=== PATIENT | male | born 1955 | race Caucasian/White ===

== ENCOUNTER 2023-08-14 09:27 | Outpatient (OUT) | payer MEDICARE, BC, SELFPAY ==
--- NOTE | 2023-08-14 09:45 | ECG_ITS ---
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
--- NOTE | 2023-08-14 10:36 | PM.PRESUREVA ---
History of Present Illness History of Present Illness Chief complaint: BPH with Obstruction, bladder stones Narrative: Patient reports for preadmission testing. The patient states he had an episode of hematuria and had a CT scan done with his PCP which demonstrated a bladder stone. The patient does admit at times he has difficulty with his urine stream. He denies nausea, vomiting, fever, abdominaal pain, or any other complaints. Review of Systems ROS Narrative REVIEW OF SYSTEMS: Negative except as stated in HPI, ten or more systems reviewed. Constitutional: No fever , chills, weakness ENT: No sore throat or epistaxis Cardiovascular: No edema, chest pain, palpitations, or activity intolerance Respiratory: No shortness of breath, cough, or wheezing Musculoskeletal: No joint pain or swelling Gastrointestinal: No abdominal pain, constipation, diarrhea, or vomiting Genitourinary: No dysuria Neurological: No numbness, tingling, weakness, or headache Psychiatric: No mood changes [facility] History (Updated 08/14/23 @ 10:19 by Sofi Kelly NP) COVID-19 ?U07.1 - COVID-19 (ICD-10) Postoperative nausea and vomiting ?R11.2 - Nausea with vomiting, unspecified (ICD-10) ?Z98.890 - Other specified postprocedural states (ICD-10) Diabetes ?E11.9 - Type 2 diabetes mellitus without complications (ICD-10) Hypertension ?I10 - Essential (primary) hypertension (ICD-10) Elevated PSA ?R97.20 - Elevated prostate specific antigen [PSA] (ICD-10) Hematuria ?R31.9 - Hematuria, unspecified (ICD-10) Bladder stone ?N21.0 - Calculus in bladder (ICD-10) BPH with obstruction/lower urinary tract symptoms ?N40.1 - Benign prostatic hyperplasia with lower urinary tract symptoms (ICD-10) ?N13.8 - Other obstructive and reflux uropathy (ICD-10) Surgical History (Updated 08/14/23 @ 10:14 by Sofi Kelly NP) H/O eye surgery ?Z98.890 - Other specified postprocedural states (ICD-10) History of colonoscopy ?Z98.890 - Other specified postprocedural states (ICD-10) H/O cystoscopy ?Z98.890 - Other specified postprocedural states (ICD-10) H/O knee surgery ?Z98.890 - Other specified postprocedural states (ICD-10) Family History (Updated 08/14/23 @ 10:14 by Sofi Kelly NP) Other Family history of diabetes mellitus Family history of hypertension Heart disease Social History (Updated 08/14/23 @ 10:10 by Sofi Kelly NP) Within the past year, how often did you have a drink containing alcohol: never Score interpretation: A score less than 4 is consistent with normal alcohol consumption. Smoking status: Never smoker Non-prescribed substance use: denies use Highest level of school completed/degree received: high school graduate Meds Home Medications and Allergies Home Medications Medication Instructions Recorded Confirmed Type aspirin 81 mg tablet,delayed 81 mg PO DAILY 08/14/23 08/14/23 History release (Adult Aspirin Regimen) insulin glargine 100 unit/mL (3 10 unit subcut QPM 08/14/23 08/14/23 History mL) subcutaneous pen (Basaglar KwikPen U-100 Insulin) lisinopril 10 mg tablet 10 mg PO DAILY 08/14/23 08/14/23 History metformin 500 mg tablet,extended 500 mg PO DAILY 08/14/23 08/14/23 History release 24 hr repaglinide 1 mg tablet 1 mg PO TID 08/14/23 08/14/23 History tamsulosin 0.4 mg capsule (Flomax) 0.4 mg PO DAILY 08/14/23 08/14/23 History Allergies Allergy/AdvReac Type Severity Reaction Status Date / Time Rfpilth-[id number]-IjM Reductase Allergy Rash Verified 08/14/23 10:02 Inhibitor Sulfa (Sulfonamide Allergy Rash Verified 08/14/23 10:02 Antibiotics) Exam Narrative Exam Narrative: Constitutional: Awake, alert, comfortable, well-appearing, nontoxic, interactive, vital signs as charted Head: Normocephalic, atraumatic Neck: Supple, normal appearance, normal range of motion, no meningeal signs, no lymphadenopathy Respiratory: No respiratory distress, breath sounds clear Cardiovascular: Regular rate and rhythm, strong and regular heart tones Abdomen: Nontender, normal bowel sounds, soft, no CVA tenderness Musculoskeletal: Normal gait, no swelling or edema Skin: No rashes or induration, no lesions, only visible skin inspected Neuro: No neurological deficits, normal sensation Psychiatric: Oriented ?3, Flat affect, poor insight Assessment and Plan Assessment and Plan (1) Hematuria: (2) Bladder stone: (3) BPH with obstruction/lower urinary tract symptoms: Plan Cystoscopy, transurethral resection of the prostate, litholapaxy scheduled with Dr. Miner 09/11/2023.
[2023-08-14 10:41] LABS: Basophils Absolute Auto 0.1 10^3/uL (0.0-0.1); Basophils Percent Auto 0.8 % (0.2-2.0); Eosinophils Absolute Auto 0.5 10^3/uL (0.0-0.7); Eosinophils Percent Auto 6.7 % (0.9-7.0); Hematocrit 38.1 % (42.0-54.0); Hemoglobin 12.4 g/dL (14.0-18.0); Immature Granulocytes Abs Auto 0.02 10^3/uL (0.00-0.03); Immature Granulocytes Pct Auto 0.3 % (0.0-0.5); Lymphocytes Absolute Auto 2.8 10^3/uL (1.2-3.8); Lymphocytes Percent Auto 39.5 % (20.5-60.0); Mean Corpuscular HGB Conc 32.5 g/dL (29.9-35.2); Mean Corpuscular Hemoglobin 29.9 pg (25.9-34.0); Mean Corpuscular Volume 91.8 fL (80.0-94.0); Mean Platelet Volume 10.6 fL (9.5-13.5); Monocytes Absolute Auto 0.6 10^3/uL (0.3-0.8); Monocytes Percent Auto 8.8 % (1.7-12.0); Neutrophils Absolute Auto 3.2 10^3/uL (1.4-6.5); Neutrophils Percent Auto 43.9 % (43.0-75.0); Platelet Count 153 10^3/uL (150-450); Red Blood Count 4.15 10^6/uL (4.70-6.10); Red Cell Distribution Width 12.3 % (11.0-15.0); White Blood Count 7.2 10^3/uL (4.0-11.0)
[2023-08-14 10:55] LABS: Anion Gap 14.6; BUN Creatinine Ratio 16.7; Calcium 9.2 mg/dL (8.5-10.1); Carbon Dioxide 27.5 mmol/L (21.0-32.0); Chloride 103 mmol/L (98-107); Estimated GFR (African America 52 (>=60); Estimated GFR (Non-African Ame 43 (>=60); Glucose 89 mg/dL (74-106); Potassium 5.1 mmol/L (3.5-5.1); Sodium 140 mmol/L (136-145)
[2023-08-14 11:00] LABS: INR 1.03; Partial Thromboplastin Time 26.9 sec (22.3-36.2); Prothrombin Time 10.9 sec (9.0-11.6)
== END 2023-08-14 09:28 | disposition home or self-care (01) ==
LOC: PST 09:28
PROVIDERS: Visit Provider Urology
DX: Z01.810 Encounter for preprocedural cardiovascular examination (principal); Z01.812 Encounter for preprocedural laboratory examination; Z01.818 Encounter for other preprocedural examination; N40.1 Benign prostatic hyperplasia with lower urinary tract symptoms; R31.9 Hematuria, unspecified
CPT/HCPCS: 80048; 85025; 85610; 85730; 93005; G0463

== ENCOUNTER 2023-09-17 11:50 | Outpatient (OUT) | payer MEDICARE, BC, SELFPAY ==
--- OUTSIDE RECORDS SUMMARY | 2023-09-17 12:09 | XMS_ITS | CCD ---
Author Organization [facility] Care Team Providers Care Liquor Tester Name Role Phone Nekl, Delia Unavailable Unavailable Nekl, Delia E Unavailable Unavailable Lamping, Alice A Unavailable Unavailable Nekl, Delia E Unavailable Unavailable Unavailable Unavailable Unavailable NON STAFF Primary Care Provider UnavailCRISTOPHER [place] Emergency Provider Unavailable Unavailable NEKL, DELIA LAKHWINDER Referring Unavailable NEKL, DELIA LAKHWINDER Primary Care Unavailable NEKL, DELIA LAKHWINDER Attending Unavailable NEKL, DELIA LAKHWINDER Referring Unavailable NEKL, DELIA LAKHWINDER Primary Care Unavailable NEKL, DELIA LAKHWINDER Attending Unavailable NEKL, DELIA LAKHWINDER Primary Care Unavailable NEKL, DELIA LAKHWINDER Attending Unavailable NEKL, DELIA LAKHWINDER Referring Unavailable NEKL, DELIA LAKHWINDER Referring Unavailable NEKL, DELIA LAKHWINDER Primary Care Unavailable NEKL, DELIA LAKHWINDER Attending Unavailable VANGIE DORADO MD Attending Unavailable CESARIO YOON MD Admitting Unavailable CESARIO YOON MD Attending Unavailable HIREN KIM CRNA Consulting Unavailable NEKL, DELIA Primary Care Unavailable GRETEL MAJANO MD Attending Unavailable NEKL, DELIA Primary Care Unavailable GRETEL MAJANO MD Admitting Unavailable Mast, Светлана Unavailable Mast, DO Светлана Primary Care Provider Mast, DO Светлана Attending Provider Mast, Светлана Attending Unavailable Mast, Светлана Admitting Unavailable Mast, Светлана Primary Care Unavailable Mast, Светлана Attending Unavailable Mast, Светлана Admitting Unavailable Mast, Светлана Primary Care Unavailable MAST, СВЕТЛАНА E Primary Care Physician [phone] MINER, Devendra R Attending Unavailable MINER, Devendra R Attending Unavailable MINER, Devendra R Attending Unavailable MINER, Devendra R Attending Unavailable MINER, Devendra R Attending Unavailable MASTСВЕТЛАНА Referring Unavailable MINER, Devendra R Attending Unavailable MINER, Devendra R Attending Unavailable MINER, Devendra R Attending Unavailable MINER, Devendra R Attending Unavailable Allergies Allergy Classification Reported Allergen(s) Allergy Type Date of Onset Reaction(s) Facility Cholesterol Absorption Inhibitors (1 source) ezetimibe; Translations: [Zetia TABS] Drug Allergy [facility] Work Phone: colesevelam (1 source) colesevelam; Translations: [Welchol] Drug Allergy [facility] Work Phone: Linagliptin (1 source) Linagliptin; Translations: [Tradjenta TABS] Drug Allergy [facility] Work Phone: Sulfonamides (antibiotic) (1 source) Sulfonamides (Antibiotic); Translations: [Sulfa Drugs] Drug Allergy [facility] Work Phone: Thiazolidinediones (glitazones) (1 source) pioglitazone; Translations: [Pioglitazone HCl TABS] Drug Allergy [facility] Work Phone: (20 sources) colesevelam; Translations: [Welchol] Drug Allergy [facility] Repository (20 sources) ezetimibe; Translations: [Zetia TABS] Drug Allergy [facility] Work Phone: (20 sources) Linagliptin; Translations: [Tradjenta TABS] Drug Allergy [facility] Work Phone: (20 sources) pioglitazone; Translations: [Pioglitazone HCl TABS] Drug Allergy [facility] Work Phone: (20 sources) Sulfonamides (Antibiotic); Translations: [Sulfa Drugs] drug allergy [facility] Work Phone: (4 sources) Sulfonamides (Antibiotic); Translations: [Sulfa (Sulfonamide Antibiotics)] Allergy to substance 12-08-19 22 Unknown Reaction [facility] (4 sources) Hfsvbwa-RZY-VaY Reductase Inhibitor; Translations: [Bvykvgy-OQE-KrJ Reductase Inhibitor] Allergy to substance 12-08-19 22 Unknown Reaction [facility] (1 source) ezetimibe Drug Allergy [facility] Repository (1 source) Linagliptin Drug Allergy [facility] Rep[facility] (1 source) pioglitazone Drug Allergy [facility] Rep[facility] (1 source) Sulfonamides (Antibiotic) Drug allergy (disorder) [facility] Repository (8 sources) HMG-CoA reductase inhibitor; Translations: [statins] Drug allergy rash, Eruption of skin (disorder) [facility] (6 sources) Sulfacetamide Sod-Sulfur Drug allergy rash [facility] [employer] Other (2 sources) SITagliptin Drug Allergy shortness of breath [facility] [employer] Other (3 sources) Sulfur; Translations: [sulfur topical] Drug Allergy Eruption of skin (disorder) [facility] (1 source) Hmg-Coa Reductase Inhibitors (Statins); Translations: [statins] Propensity to adverse reactions (disorder) [facility] Repository Medications Current Medications Medication Drug Class(es) Dates Sig (Normalized) Sig (Original) aspirin 81 mg delayed release oral tablet (2 sources) Platelet Aggregation Inhibitor, Nonsteroidal Anti-inflammatory Drug Start: 06-04-2023 take 1 mg by mouth once daily aspirin 81 mg Oral EC Tab mg tab(s), Oral, Daily, Refills(s) 0 Start Date: 06/04/23 Status: Ordered Basaglar KwikPen (2 sources) Start: 06-04-2023 Basaglar KwikPen SubCutaneous, Daily, Refills(s) 0 Start Date: 06/04/23 Status: Ordered Dexcom G7 Sensor - (1 source) Dexcom G7 Sensor - as directed 1 box Active FreeStyle Bogdan 3 Sensor - (5 sources) Start: 02-27-2023 FreeStyle Bogdan 3 Sensor - as directed 1 box Jan, Active lisinopril 10 mg oral tablet (20 sources) Angiotensin Converting Enzyme Inhibitor Start: 06-04-2023 take 1 mg by mouth once daily lisinopril 10 mg Tab mg tab(s), Oral, Daily, Refills(s) 0 Start Date: 06/04/23 Status: Ordered Start: 05-11-2020 take 1 tablet by savi th once daily Lisinopril 10 MG Oral Tablet Take 1 tablet daily Quantity: 90 Refills: 3 Ordered: 18-Jan-2022 Delia Ulloa MD Start : 11-May-2020 Active Start: 07-20-2018 take 1 tablet by savi th once daily Lisinopril 5 MG Oral Tablet Take 1 tablet daily Quantity: 90 Refills: 3 Delia Ulloa MD Start : 20-Jul-2018 Active metFORMIN hydrochloride 500 mg oral tablet (20 sources) Biguanide Start: 06-04-2023 take 1 mg by mouth once daily metformin 500 mg ER Tab mg tab(s), Oral, Daily, Refills(s) 0 Start Date: 06/04/23 Status: Ordered Start: 10-26-2013 take 2 tablets by mo [facility] twice daily metFORMIN HCl ER 500 MG Oral Tablet Extended Release 24 Hour take 2 tablets by mouth twice daily Quantity: 360 Refills: 3 Delia Ulloa MD Start : 26-Oct-2013 Active Start: 10-26-2013 take 1 tablet by savi three times daily metFORMIN HCl ER 500 MG Oral Tablet Extended Release 24 Hour TAKE 1 TABLET 3 times daily Quantity: 270 Refills: 3 Ordered: 09-Feb-2022 Delia Ulloa MD Start : 26-Oct-2013 Active repaglinide 1 mg oral tablet (20 sources) Glinide Start: 06-04-2023 repaglinide 1 mg Tab mg tab(s), Oral, TIDAC, Refills(s) 0 Start Date: 06/04/23 Status: Ordered Start: 08-26-2014 take 1 tablet by savi th three times daily Repaglinide 2 MG Oral Tablet TAKE 1 TABLET BY MOUTH THREE TIMES DAILY Quantity: 270 Refills: 3 Ordered: 18-Jan-2022 Delia Ulloa MD Start : 26-Aug-2014 Active tamsulosin hydrochloride 0.4 mg oral capsule (3 sources) alpha-Adrenergic Maricel Start: 06-04-2023 End: 05-29-2024 take 1 capsule by mouth once daily Flomax 0.4 mg Cap 0.4 mg = 1 cap(s), Oral, Daily, X 30 day(s), # 30 cap(s), Refills(s) 11, Pharmacy: [facility], 178, cm, 06/04/23 13:57:00 EST, Height/Length Dosing, 87, kg, 06/04/23 13:57:00 EST, Weight Dosing Start Date: 06/04/23 Stop Date: 05/29/24 Status: Ordered Completed/Discontinued Medications Medication Drug Class(es) Dates Sig (Normalized) Sig (Original) azithromycin 250 mg oral tablet (2 sources) Macrolide Antimicrobial Start: 06-20-2021 Azithromycin 250 MG Oral Tablet TAKE 2 TABLETS ON DAY 1 THEN TAKE 1 TABLET A DAY FOR 4 DAYS. Quantity: 1 Refills: 0 Ordered: 20-Jun-2021 Delia Ulloa MD Start : 20-Jun-2021 Active cefuroxime 500 mg oral tablet (3 sources) Cephalosporin Antibacterial Start: 06-13-2021 take 1 tablet by mouth twice daily Cefuroxime Axetil 500 MG Oral Tablet Take 1 tablet twice daily Quantity: 14 Refills: 0 Ordered: 13-Jun-2021 Delia Ulloa MD Start : 13-Jun-2021 Active ciprofloxacin 500 mg oral tablet (2 sources) Quinolone Antimicrobial Start: 06-04-2023 Cipro 500 mg Tab 500 mg = 1 tab(s), Oral, As Directed, Patient to take 1 tab the day before procedure and the 2nd tab the day of procedure once completed, # 2 tab(s), Refills(s) 0, Pharmacy: [facility], 178, cm, 06/04/23 13:57:00 EST, Height/Length Dosing, 87, kg, 06/04/23 13:57:00 EST, Weight Dosing Start Date: 06/04/23 Status: Ordered codeine phosphate 2 mg/ml / guaiFENesin 20 mg/ml oral solution (2 sources) Opioid Agonist Start: 06-20-2021 take 5-10 mL by mouth every four to six hours as needed for cough guaiFENesin AC 100-10 MG/5ML Oral Syrup TAKE 5 - 10 ML EVERY 4 TO 6 HOURS NEEDED FOR COUGH. Quantity: 120 Refills: 0 Ordered: 20-Jun-2021 Delia Ulloa MD Start : 20-Jun-2021 Active 3 ml insulin glargine 100 unt/ml pen injector (20 sources) Insulin Analog Start: 10-20-2018 Basaglar KwikPen 100 UNIT/ML Subcutaneous Solution Pen-injector INJECT 15 UNIT Daily Quantity: 1 Refills: 3 Ordered: 18-Jan-2022 Delia Ulloa MD Start : 20-Oct-2018 Active Start: 10-20-2018 inject 12 [IU] by shaw bcutaneous injection once daily, then inject 100 [IU] by subcutaneous injection Basaglar KwikPen 100 UNIT/ML Subcutaneous Solution Pen-injector INJECT 12 UNIT Daily Quantity: 1 Refills: 5 Delia Ulloa MD Start : 20-Oct-2018 Active 5 x 3 ML Pen inject 10 [IU] by shaw bcutaneous injection once daily Basaglar KwikPen 100 UNIT/ML 10 Units Subcutaneous once a day Active Paxlovid (300/100) 20 x 150 MG & 10 x 100MG Oral Tablet Therapy Pack (1 source) Start: 03-12-2022 Paxlovid (300/ 100) 20 x 150 MG & 10 x 100MG Oral Tablet Therapy Pack dose is nirmatrelvir 300mg twice daily for 5 days and ritonavir 100mg twice daily for 5 days(pt. has normal renal function) Quantity: 1 Refills: 0 Ordered: 12-Mar-2022 Delia Ulloa MD Start : 12-Mar-2022 Active paxlovid (300/100) 20 x 150 mg & 10 x 100mg tablet therapy pack (1 source) Start: 03-25-2023 take 3 tablets by mouth every twelve hours Paxlovid (300/100) 20 x 150 MG & 10 x 100MG 3 tablets Orally Twice a day for 5 days Feb, Not-Taking/PRN SITagliptin 100 mg oral tablet (4 sources) Dipeptidyl Peptidase 4 Inhibitor Start: 03-25-2023 take 1 tablet by mouth every twenty-four hours Januvia 100 MG 1 tablet Orally Once a day for 30 days due to shortness of breath Feb, Not-Taking/PRN {20 (nirmatrelvir 150 MG Oral Tablet) / 10 (ritonavir 100 MG Oral Tablet) } Pack [Paxlovid 5-Day] (3 sources) Start: 03-25-2023 take 3 tablets by mouth every twelve hours Paxlovid (300/100) 20 x 150 MG & 10 x 100MG 3 tablets Orally Twice a day for 5 days Feb, Not-Taking Start: 03-25-2023 take 3 tablets by mo uth every twelve hours Paxlovid (300/100) 20 x 150 MG & 10 x 100MG 3 tablets Orally Twice a day for 5 days Feb, Active Problems Active Problems Problem Classification Problem Date Documented Da te Episodic/Chronic Allergic reactions (2 sources) Allergy status to sulfonamides status; Translations: [Allergy status to other drugs, medicaments and biological substances status] Onset: 10-10-2022 Episodic Calculus of urinary tract (11 sources) Urinary bladder stone; Translations: [Calculus in bladder] Onset: 06-04-2023 Episodic Coronary atherosclerosis and other heart disease (16 sources) Coronary atherosclerosis; Translations: [Coronary atherosclerosis of unspecified type of vessel, [place] or graft] Onset: 02-11-2022 Chronic Diabetes mellitus without complication (20 sources) Type 2 diabetes mellitus; Translations: [Diabetes mellitus without mention of complication, type II or unspecified type, not stated as uncontrolled] Onset: 10-10-2022 Chronic Disorders of lipid metabolism (20 sources) Hypercholesterolemia; Translations: [Pure hypercholesterolemia] Onset: 10-22-2021 Chronic Diverticulosis and diverticulitis (1 source) Diverticulosis of large intestine without perforation or abscess without bleeding; Translations: [DVRTCLOS LG INT NO PERF/ABSC W/O BL] Onset: 10-10-2022 Chronic Essential hypertension (20 sources) Hypertensive disorder; Translations: [Unspecified essential hypertension] Onset: 10-10-2022 Chronic Genitourinary symptoms and ill-defined conditions (7 sources) Gross hematuria; Translations: [Gross hematuria] Onset: 02-03-2023 Episodic Hyperplasia of prostate (4 sources) Benign prostatic hypertrophy with outflow obstruction; Translations: [Benign prostatic hyperplasia with lower urinary tract symptoms] Onset: 06-04-2023 Chronic Immunizations and screening for infectious disease (20 sources) Patient encounter status; Translations: [Other specified vaccination] Episodic Other aftercare (1 source) [employer] (current) use of insulin; Translations: [DETENTION CURRENT USE OF INSULIN] Onset: 10-10-2022 Episodic Other gastrointestinal disorders (3 sources) Stool DNA-based colorectal cancer screening positive; Translations: [Abnormal feces] Episodic Other gastrointestinal disorders (1 source) Other fecal abnormalities; Translations: [OTHER FECAL ABNORMALITIES] Onset: 10-10-2022 Episodic Other lower respiratory disease (16 sources) Cough; Translations: [Cough] Episodic Other nervous system disorders (3 sources) Nerve palsy; 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, 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 Chronic Other nutritional; endocrine; and metabolic disorders (20 sources) Body mass index 30+ - obesity; Translations: [Body Mass Index 31.0-31.9, adult] Chronic Other upper respiratory disease (20 sources) Chronic rhinitis; Translations: [Chronic rhinitis] Chronic Residual codes; unclassified (2 sources) H/O: Disorder; Translations: [Personal history of other specified conditions] Onset: 06-04-2023 Episodic Unclassified (2 sources) History of clinical finding in subject 06-04-2023 Viral infection (5 sources) Disease caused by 2019-nCoV; Translations: [Other specified viral infection] Episodic Past or Other Problems Problem Classification Problem Date Documented Da te Episodic/Chronic Other screening for suspected conditions (not mental disorders or infectious disease) (20 sources) Raised prostate specific antigen; Translations: [Patient encounter status] Onset: 02-11-2022 Episodic Residual codes; unclassified (1 source) Family history of ischemic heart disease and other diseases of the circulatory system; Translations: [FAM HX ISCHEMIC HRT DZ OTH DZ CIRC] Onset: 02-11-2022 Episodic Unclassified (2 sources) Patient encounter status; Translations: [Screening for colorectal cancer] NEGATED: Highlighted row has not occurred!Residual codes; unclassified (13 sources) Disease Episodic Results Test Name Value Interpretation Reference Range Facility ECG 12-Leadon 08-15-2023 ECG 12-Lead [id number]#1 .00TIFF [facility] ECG 12-Lead [id number] .00TIFF [facility] Lab Reportson 08-15-2023 Lab Reports [id number] .00TIFF [facility] Lab Reports [id number] .00TIFF [facility] Consent for Procedure/Surger yon 08-05-2023 Consent for Procedure/Surgery [id number] .00TIFF [facility] Consent for Procedure/Surger yon 07-02-2023 Consent for Procedure/Surgery [id number] .00TIFF [facility] Ambulatory Visit Summaryon 0 07-01-2023 Ambulatory Visit Summary GRETEL TOSCANO :1955 Visit Date:07/01/2023 Ambulatory Visit Instructions Your Diagnosis Bladder stone BPH with obstruction/lower urinary tract symptoms Gross hematuria History of elevated PSA Your Care Team Attending Physician - Devendra MNIER MD Primary Care Physician - СВЕТЛАНА ERAZO DO This Is Your Medications List tamsulosin (Flomax 0.4 mg Cap) Contact prescribing physician if questions or concerns aspirin (aspirin 81 mg Oral EC Tab) ciprofloxacin (Cipro 500 mg Tab) insulin glargine (Basaglar KwikPen) lisinopril (lisinopril 10 mg Tab) metformin (metformin 500 mg ER Tab) repaglinide (repaglinide 1 mg Tab) Procedures Performed Cystoscopy (07/01/2023), Procedure on knee. Discharge Vitals Height 178 cm Height 70 in Weight 87 kg Weight 191.4 lb BMI 27.46 What to do next You Need to Schedule the Following Appointments Follow Up with SCOTTY VO, Devendra Romero, URL When: Comments: Schedule Cysto/Litholapaxy/TUR P Where: [facility] [address], [place] [address]- Medications What How Much When Instructions Unchanged tamsulosin (Flomax 0.4 mg Cap) 1 Capsules By Mouth Every day Duration: 30 Days Unchanged aspirin (aspirin 81 mg Oral EC Tab) By Mouth Every day Contact prescribing physician if questions or concerns Unchanged ciprofloxacin (Cipro 500 mg Tab) 1 Tablets By Mouth As Directed Patient to take 1 tab the day before procedure and the 2nd tab the day of procedure once completed Contact prescribing physician if questions or concerns Unchanged insulin glargine (Basaglar KwikPen) Subcutaneous Every day Contact prescribing physician if questions or concerns Unchanged lisinopril (lisinopril 10 mg Tab) By Mouth Every day Contact prescribing physician if questions or concerns Unchanged metformin (metformin 500 mg ER Tab) By Mouth Every day Contact prescribing physician if questions or concerns Unchanged repaglinide (repaglinide 1 mg Tab) By Mouth Before meals Contact prescribing physician if questions or concerns Medications and Immunizations Administered Given lidocaine Top 2% Gel w/Appl 6 mL, 6 mL, Topical. For: Bladder stone, BPH with obstruction/lower urinary tract symptoms, Gross hematuria Allergies Sulfur (Rash) statins (Rash) Problems Ongoing - Any problem that you are currently receiving treatment for. Bladder stone BPH with obstruction/lower urinary tract symptoms Gross hematuria History of elevated PSA Hypertension Type 2 diabetes mellitus Patient Survey You may receive a survey via text or e-mail asking about your office visit. Please share your experience with us by completing your survey. We appreciate your feedback and thank you for choosing us for your care. Education Materials Bladder Stone A bladder stone is a buildup of crystals made from the proteins and minerals found in urine. These substances build up when urine becomes too concentrated. Urine is concentrated when there is less water and more proteins and minerals in it. Bladder stones usually develop when a person has another medical condition that prevents the bladder from emptying completely. Crystals can form in the small amount of urine that is left in the bladder. Bladder stones that grow large can become painful and may block the flow of urine. What are the causes? This condition may be caused by: ? An enlarged prostate, which prevents the bladder from emptying well. ? An infection of a part of your urinary system (urinary tract infection, or UTI). This includes the: ? Kidneys. ? Bladder. ? Ureters. These are the tubes that carry urine to your bladder. ? Urethra. This is the tube that drains urine from your bladder. ? A weak spot in the bladder that creates a small pouch (bladder diverticulum). ? Nerve damage that may interfere with the signals from your brain to your bladder muscles (neurogenic bladder). This can result from conditions such as Parkinson's disease or spinal cord injuries. What increases the risk? This condition is more likely to develop in people who: ? Get frequent UTIs. ? Have another medical condition that affects the bladder. ? Have a history of bladder surgery. ? Have a spinal cord injury. ? Have an abnormal shape of the bladder (deformity). What are the signs or symptoms? Common symptoms of this condition include: ? Pain in the abdomen. ? A need to urinate more often. ? Difficulty or pain when urinating. ? Blood in the urine. ? Cloudy urine or urine that is dark in color. ? Pain in the penis or testicles in men. Small bladder stones do not always cause symptoms. How is this diagnosed? This condition may be diagnosed based on your symptoms, medical history, and physical exam. The physical exam will check for tenderness in your abdomen. For men, an exam in the rectum may be done to check the prostate gland. (more content not included)... [facility] Patient Educationon 07-01-19 Patient Education Urology Bladder Stone A bladder stone is a buildup of crystals made from the proteins and minerals found in urine. These substances build up when urine becomes too concentrated. Urine is concentrated when there is less water and more proteins and minerals in it. Bladder stones usually develop when a person has another medical condition that prevents the bladder from emptying completely. Crystals can form in the small amount of urine that is left in the bladder. Bladder stones that grow large can become painful and may block the flow of urine. What are the causes? This condition may be caused by: ? An enlarged prostate, which prevents the bladder from emptying well. ? An infection of a part of your urinary system (urinary tract infection, or UTI). This includes the: ? Kidneys. ? Bladder. ? Ureters. These are the tubes that carry urine to your bladder. ? Urethra. This is the tube that drains urine from your bladder. ? A weak spot in the bladder that creates a small pouch (bladder diverticulum). ? Nerve damage that may interfere with the signals from your brain to your bladder muscles (neurogenic bladder). This can result from conditions such as Parkinson's disease or spinal cord injuries. What increases the risk? This condition is more likely to develop in people who: ? Get frequent UTIs. ? Have another medical condition that affects the bladder. ? Have a history of bladder surgery. ? Have a spinal cord injury. ? Have an abnormal shape of the bladder (deformity). What are the signs or symptoms? Common symptoms of this condition include: ? Pain in the abdomen. ? A need to urinate more often. ? Difficulty or pain when urinating. ? Blood in the urine. ? Cloudy urine or urine that is dark in color. ? Pain in the penis or testicles in men. Small bladder stones do not always cause symptoms. How is this diagnosed? This condition may be diagnosed based on your symptoms, medical history, and physical exam. The physical exam will check for tenderness in your abdomen. For men, an exam in the rectum may be done to check the prostate gland. ? You may have tests, such as: ? A urine test (urinalysis). ? A urine sample test to check for other infections (culture). ? Blood tests, including tests to look for a certain substance (creatinine). A creatinine level that is higher than normal could indicate a blockage. ? A procedure to check your bladder using a scope with a camera (cystoscopy). ? You may also have imaging studies, such as: ? CT scan or ultrasound of your abdomen and the area between your hip bones (pelvis or pelvic area). ? An X-ray of your urinary system. How is this treated? This condition may be treated with: ? Cystolitholapaxy. This procedure uses a laser, ultrasound, or other device to break the stone into smaller pieces. Fluids are used to flush the small pieces from the area. ? Surgery to remove the stone. ? A stent. This is a small mesh tube that is threaded into your ureter to make urine flow. ? Medicines to treat pain. Follow these instructions at home: Medicines ? Take cdwp-dyj-muebrpy and prescription medicines only as told by your health care provider. ? Ask your health care provider if the medicine prescribed to you: ? Requires you to avoid driving or using heavy machinery. ? Can cause constipation. You may need to take these actions to prevent or treat constipation: ? Take xrfj-kds-wwqeevw or prescription medicines. ? Eat foods that are high in fiber, such as beans, whole grains, and fresh fruits and vegetables. ? Limit foods that are high in fat and processed sugars, such as fried or sweet foods. Alcohol use ? Do not drink alcohol if: ? Your health care provider tells you not to drink. ? You are , may be , or are planning to become . ? If you drink alcohol: ? Limit how much you drink to: ? 0?1 drink a day for women. ? 0?2 drinks a day for men. ? Be aware of how much alcohol is in your drink. In the [place] one drink equals one 12 oz bottle of beer (355 mL), one 5 oz glass of wine (148 mL), or one 1? oz glass of hard liquor (44 mL). Activity ? Rest as told by your health care provider. ? Return to your normal activities as told by your health care provider. Ask your health care provider what activities are safe for you. General instructions ? Drink enough fluid to keep your urine pale yellow. ? Tell your health care provider about any unusual symptoms related to urinating. Early diagnosis of an enlarged prostate and other bladder conditions may reduce your risk of getting bladder stones. ? Do not use any products that contain nicotine or tobacco, such as cigarettes, e-cigarettes, or chewing tobacco. If you need help quitting, ask your health care provider. ? Do not use drugs. Where to find more information [facility] ([facility]): www.urologyhealth.org (more content not included)... [facility] Urology Office/Clinic Noteon 07-01-2023 Urology Office/Clinic Note Chief Complaint Cystoscopy HPI Staff Cysto ABX TAKEN History of Present Illness Tests reviewed: none. I have reviewed the previous health record information and history for this patient from . I have reviewed and verified the staff HPI to be accurate for this encounter. There have been no associated fever, chills, flank pain, or blood in the urine. Denies any urinary infections since last encounter. Review of Systems PHQ Score Initial Depression Screen Score: 0 SCORE ROS - Provider Constitutional: denies weight loss, denies hot flashes. Eyes: denies eye problems. Gastrointestinal: denies nausea, denies vomiting. Cardiovascular: denies chest pain or angina. Integumentary: no dryness Musculoskeletal: denies musculoskeletal symptoms. ENMT: denies otolaryngeal symptoms. Respiratory: no shortness of breath. Heme/Lymph: denies easy bleeding tendency, denies easy bruising tendency. Psychiatric: no confusion, no anxiety. Genitourinary: See HPI. Physical Exam Vitals & Measurements HT: 70 in HT: 178 cm WT: 87 kg WT: 191.4 lb BMI: 27.46 General Appearance: alert, no distress, well nourished, well developed male. Procedure Operative Information Anesthesia Type: Local Procedure: Local Cystoscopy Complications: None Surgical risks, benefits, details of the procedure have been explained to the patient. Full informed consent has been obtained. Intraoperative Information Prepped: Patient is brought back to the endoscopy suite. Patient is placed in supine position. Patient prepped in the usual fashion with Betadine solution. 2% Xylocaine Jelly is placed per Urethra. After waiting several minutes, the Cystoscope is introduced. The Urethra is: Normal The Prostatic Urethra is: trilobar obstruction The Bladder: Abnormal, multiple bladder stones, 2-4cm, open tics, Trabeculated: Severe (3)no b.t. anteriror wall with bullous edema presumedly from the bladder stones. The Ureteral orifices: Show efflux of clear urine Specimens Removed: None Removal: Cystoscope is removed. The patient tolerated it well. Postoperative Information Patient is discharged home with antibiotic coverage. Follow up arranged. Assessment/Plan 1. Bladder stone (N21.0: Calculus in bladder) CT AP wo con 02/17/23 [facility] - Multiple dependent urinary bladder calculi, largest measuring 2.4 cm. No obstruction. Pt had IO cysto done today without complications. Prophylactic abx take prior to procedure. All questions/concerns were discussed. Pt to call the office if he encounters any issues prior. Pt acknowledges understanding. -Will schedule cysto/Litholapaxy/TUR P. Will schedule TURP. The procedural risks, benefits, details, and treatment alternatives have been discussed with the patient. These include bleeding, infection, need for blood transfusion, continued urinary difficulties, urinary leakage which could be permanent, need for catheter, retrograde ejaculation, scar tissue formation in the urinary channel or area of prostate shaving, erection problems, blood clot formation in the lower extremities which could travel to the lungs, among others. A secondary operation could also be required. Full informed consent has been obtained. Will order General anesthesia. 2. BPH with obstruction/lower urinary tract symptoms (N40.1: Benign prostatic hyperplasia with lower urinary tract symptoms) CT AP wo con 02/17/23 [facility] - No obstruction. Prostatomegaly. Questionable scrotal wall edema. No hx of UTI. Has developed worsening urination recently. Does not always feel he empties completely, this started about 6 mos ago. Pt is also diabetic, educated this can lessen his bladder sensation and evacuation. Pt was started on Tamsulosin 0.4mg QD at prior OV. -See #1 and Procedure Documentation. 3. Gross hematuria (R31.0: Gross hematuria) UA at prior OV showed small blood, neg for infection. Last saw blood about 1.5 mos ago. Has seen blood 6-8x in the past year with bouncing or lifting activity. -See #1 and Procedure documentation. 4. History of elevated PSA (Z87.898: Personal history of other specified conditions) PSA: 02/09/16 - 4.19 10/09/16 - 2.16 07/18/17 - 1.68 02/11/19 - 1.72 06/25/21 - 2.61 Had neg prostate bx years ago by Dr. Pena at [facility]. Elevated PSA level likely from prostatitis and exacerbated from incomplete emptying. Follow-up With When Contact Information SCOTTY VO, Devendra Romero, URL [facility] [address], [place] [address]- Additional Instructions: Schedule Cysto/Litholapaxy/TUR P Patient Education Benign Prostatic Hyperplasia I, Rachele Barber , personally scribed for Dr. Miner on 07/01/2023 14:41:03. . Documentation recorded by the scribe, Rachele Barber, accurately reflects the services(s) I performed and decisions made by me. Problem List/Past Medical History Ongoing Bladder stone BPH with obstruction/lower (more content not included)... [facility] Comment on above: Result Comment: Elec tronically Signed By: Devendra MINER MD\.br\Date and Time Signed: 07/01/23 14:44 EST\.br\Electronically Co-Signed By: Rachele Barber\.br\Date and Time Co-Signed: 07/01/23 14:41 EST [employer]son 06-05-2023 Forms [id number] .00TIFF [facility] Physician Referralon 023 Physician Referral [id number] .00TIFF [facility] Screenson 06-05-2023 Screens [id number] .00TIFF [facility] Ambulatory Visit Summaryon 1 08-05-2022 Ambulatory Visit Summary GRETEL BAINS :1955 Visit Date:06/04/2023 Ambulatory Visit Instructions Your Diagnosis Bladder stone BPH with obstruction/lower urinary tract symptoms Gross hematuria History of elevated PSA Tests Performed Urnls Dip Stick Auto w/o Microscopy POC 86028 Your Care Team Attending Physician - Devendra MINER MD Primary Care Physician - СВЕТЛАНА ERAZO DO Referring Physician - СВЕТЛАНА ERAZO DO This Is Your Medications List aspirin (aspirin 81 mg Oral EC Tab) insulin glargine (Basaglar KwikPen) lisinopril (lisinopril 10 mg Tab) metformin (metformin 500 mg ER Tab) repaglinide (repaglinide 1 mg Tab) Procedures Performed Procedure on knee. Discharge Vitals Heart Rate (Peripheral) 87 Respiratory Rate 16 Blood Pressure 135/83 Height 178 cm Height 70 in Weight 87 kg Weight 191.4 lb BMI 27.46 What to do next You Need to Schedule the Following Appointments Follow Up with SCOTTY VO, VAL Scott When: Where: [facility] [address], [place] [address]- Medications What How Much When Instructions Unchanged aspirin (aspirin 81 mg Oral EC Tab) Every day Unchanged insulin glargine (Basaglar KwikPen) Every day Unchanged lisinopril (lisinopril 10 mg Tab) Every day Unchanged metformin (metformin 500 mg ER Tab) Every day Unchanged repaglinide (repaglinide 1 mg Tab) Before meals Test Results Urnls Dip Stick Auto w/o Microscopy POC 81193 (06/04/2023) Bilirubin Urine Dipstick - Negative Blood Urine Dipstick - 1+ Small Glucose Urine Dipstick - Trace 100 mg/dl Ketones Urine Dipstick - Negative Leukocytes Urine Dipstick - Negative Nitrite Urine Dipstick - Negative Protein Urine Dipstick - 2+ (100 mg/dl) Specific [place] Urine Dipstick - 1.020 Urine Appearance Urine Dipstick - Clear Urine Color Urine Dipstick - Yellow Urobilinogen Urine Dipstick - Normal 0.2-1 EU/dl pH Urine Dipstick - 5.5 Allergies Sulfur (Rash) statins (Rash) Problems Ongoing - Any problem that you are currently receiving treatment for. BPH with obstruction/lower urinary tract symptoms Gross hematuria History of elevated PSA Hypertension Type 2 diabetes mellitus Patient Survey You may receive a survey via text or e-mail asking about your office visit. Please share your experience with us by completing your survey. We appreciate your feedback and thank you for choosing us for your care. Education Materials Bladder Stone A bladder stone is a buildup of crystals made from the proteins and minerals found in urine. These substances build up when urine becomes too concentrated. Urine is concentrated when there is less water and more proteins and minerals in it. Bladder stones usually develop when a person has another medical condition that prevents the bladder from emptying completely. Crystals can form in the small amount of urine that is left in the bladder. Bladder stones that grow large can become painful and may block the flow of urine. What are the causes? This condition may be caused by: ? An enlarged prostate, which prevents the bladder from emptying well. ? An infection of a part of your urinary system (urinary tract infection, or UTI). This includes the: ? Kidneys. ? Bladder. ? Ureters. These are the tubes that carry urine to your bladder. ? Urethra. This is the tube that drains urine from your bladder. ? A weak spot in the bladder that creates a small pouch (bladder diverticulum). ? Nerve damage that may interfere with the signals from your brain to your bladder muscles (neurogenic bladder). This can result from conditions such as Parkinson's disease or spinal cord injuries. What increases the risk? This condition is more likely to develop in people who: ? Get frequent UTIs. ? Have another medical condition that affects the bladder. ? Have a history of bladder surgery. ? Have a spinal cord injury. ? Have an abnormal shape of the bladder (deformity). What are the signs or symptoms? Common symptoms of this condition include: ? Pain in the abdomen. ? A need to urinate more often. ? Difficulty or pain when urinating. ? Blood in the urine. ? Cloudy urine or urine that is dark in color. ? Pain in the penis or testicles in men. Small bladder stones do not always cause symptoms. How is this diagnosed? This condition may be diagnosed based on your symptoms, medical history, and physical exam. The physical exam will check for tenderness in your abdomen. For men, an exam in the rectum may be done to check the prostate gland. ? You may have tests, such as: ? A urine test (urinalysis). ? A urine sample test to check for other infections (culture). ? Blood tests, including tests to look for a certain substance (creatinine). A creatinine level that is higher than normal could indicate a blockage. ? A procedure to check y (more content not included)... [facility] Patient Educationon 06-04-20 Patient Education Urology Bladder Stone A bladder stone is a buildup of crystals made from the proteins and minerals found in urine. These substances build up when urine becomes too concentrated. Urine is concentrated when there is less water and more proteins and minerals in it. Bladder stones usually develop when a person has another medical condition that prevents the bladder from emptying completely. Crystals can form in the small amount of urine that is left in the bladder. Bladder stones that grow large can become painful and may block the flow of urine. What are the causes? This condition may be caused by: ? An enlarged prostate, which prevents the bladder from emptying well. ? An infection of a part of your urinary system (urinary tract infection, or UTI). This includes the: ? Kidneys. ? Bladder. ? Ureters. These are the tubes that carry urine to your bladder. ? Urethra. This is the tube that drains urine from your bladder. ? A weak spot in the bladder that creates a small pouch (bladder diverticulum). ? Nerve damage that may interfere with the signals from your brain to your bladder muscles (neurogenic bladder). This can result from conditions such as Parkinson's disease or spinal cord injuries. What increases the risk? This condition is more likely to develop in people who: ? Get frequent UTIs. ? Have another medical condition that affects the bladder. ? Have a history of bladder surgery. ? Have a spinal cord injury. ? Have an abnormal shape of the bladder (deformity). What are the signs or symptoms? Common symptoms of this condition include: ? Pain in the abdomen. ? A need to urinate more often. ? Difficulty or pain when urinating. ? Blood in the urine. ? Cloudy urine or urine that is dark in color. ? Pain in the penis or testicles in men. Small bladder stones do not always cause symptoms. How is this diagnosed? This condition may be diagnosed based on your symptoms, medical history, and physical exam. The physical exam will check for tenderness in your abdomen. For men, an exam in the rectum may be done to check the prostate gland. ? You may have tests, such as: ? A urine test (urinalysis). ? A urine sample test to check for other infections (culture). ? Blood tests, including tests to look for a certain substance (creatinine). A creatinine level that is higher than normal could indicate a blockage. ? A procedure to check your bladder using a scope with a camera (cystoscopy). ? You may also have imaging studies, such as: ? CT scan or ultrasound of your abdomen and the area between your hip bones (pelvis or pelvic area). ? An X-ray of your urinary system. How is this treated? This condition may be treated with: ? Cystolitholapaxy. This procedure uses a laser, ultrasound, or other device to break the stone into smaller pieces. Fluids are used to flush the small pieces from the area. ? Surgery to remove the stone. ? A stent. This is a small mesh tube that is threaded into your ureter to make urine flow. ? Medicines to treat pain. Follow these instructions at home: Medicines ? Take lumi-exd-pgoljpj and prescription medicines only as told by your health care provider. ? Ask your health care provider if the medicine prescribed to you: ? Requires you to avoid driving or using heavy machinery. ? Can cause constipation. You may need to take these actions to prevent or treat constipation: ? Take bdta-ydp-wjsqwss or prescription medicines. ? Eat foods that are high in fiber, such as beans, whole grains, and fresh fruits and vegetables. ? Limit foods that are high in fat and processed sugars, such as fried or sweet foods. Alcohol use ? Do not drink alcohol if: ? Your health care provider tells you not to drink. ? You are , may be , or are planning to become . ? If you drink alcohol: ? Limit how much you drink to: ? 0?1 drink a day for women. ? 0?2 drinks a day for men. ? Be aware of how much alcohol is in your drink. In the [place] one drink equals one 12 oz bottle of beer (355 mL), one 5 oz glass of wine (148 mL), or one 1? oz glass of hard liquor (44 mL). Activity ? Rest as told by your health care provider. ? Return to your normal activities as told by your health care provider. Ask your health care provider what activities are safe for you. General instructions ? Drink enough fluid to keep your urine pale yellow. ? Tell your health care provider about any unusual symptoms related to urinating. Early diagnosis of an enlarged prostate and other bladder conditions may reduce your risk of getting bladder stones. ? Do not use any products that contain nicotine or tobacco, such as cigarettes, e-cigarettes, or chewing tobacco. If you need help quitting, ask your health care provider. ? Do not use drugs. Where to find more information [facility] ([facility]): www.urologyhealth.org (more content not included)... [facility] Urology Office/Clinic Noteon 06-04-2023 Urology Office/Clinic Note Chief Complaint bladder calculi, hematuria HPI Staff New pt. Referral per Светлана Erazo due to bladder calculi w/gross hematuria. CT SCAN done 02/17/23. BUN 30, Creatinine 1.31 done 02/03/23. PSA 2.61-06/25/21 1.72-02/11/19 1.68-07/18/17 2.16-10/09/16 4.19-02/09/16 Dysuria: no Incomplete bladder emptying: no Hematuria: pt states he has seen blood 6-8x in the past year with bouncing or lifting activity. Last seen about a month and a half Frequency: no Urgency: no Nocturia: Stream: good but occasional intermittency Leaking: no Post void dripping: no Wearing pads/ Depends: no Urge incontinence: no Stress incontinence: no Incontinence without Sensory Awareness: no Abdominal pain: no Flank pain: no Sexual complaints: no History of Present Illness Tests reviewed: reviewed UA, referral records, CT I have reviewed the previous health record information and history for this patient from Dr. Светлана Erazo. I have reviewed and verified the staff HPI to be accurate for this encounter. There have been no associated fever, chills, flank pain, or blood in the urine. Denies any urinary infections since last encounter. Review of Systems PHQ Score Initial Depression Screen Score: 0 SCORE ROS - Provider Constitutional: denies weight loss, denies hot flashes. Eyes: denies eye problems. Gastrointestinal: denies nausea, denies vomiting. Cardiovascular: denies chest pain or angina. Integumentary: no dryness Musculoskeletal: denies musculoskeletal symptoms. ENMT: denies otolaryngeal symptoms. Respiratory: no shortness of breath. Heme/Lymph: denies easy bleeding tendency, denies easy bruising tendency. Psychiatric: no confusion, no anxiety. Genitourinary: See HPI. Physical Exam Vitals & Measurements HR: 87(Peripheral) RR: 16 BP: 135/83 HT: 70 in HT: 178 cm WT: 87 kg WT: 191.4 lb BMI: 27.46 General Appearance: alert, no distress, well nourished, well developed male. Head: normocephalic . Eyes: normal orbit and globe. ENMT: normal examination of external ears. Chest: Lungs CTA, respirations non labored. Cardiovascular: regular rate and rhythm. Abdomen: soft, non distended, no tenderness, no mass or organomegaly, no hernia. Genitourinary: normal scrotum, normal testes, normal urethra, normal epididymis, normal vas deferens/spermatic cord. Flank Pain: none. Bladder: nonpalpable. Penis: normal shaft, normal glans. Lymph Nodes: unremarkable palpation of the cervical area. Skin: warm, dry, no bruising. Psychiatric: cooperative, affect appropriate for age, normal judgement, euthymic mood. Assessment/Plan Gretel is a 68 yo male new pt referred by Dr. Светлана Erazo due to bladder calculi with gross hematuria. 02/03/23 - BUN 30. Crea 1.31. 1. Bladder stone (N21.0: Calculus in bladder) CT AP wo con 02/17/23 [facility] - Multiple dependent urinary bladder calculi, largest measuring 2.4 cm. No obstruction. Reviewed imaging with pt. Will schedule cysto. The risks and benefits for cystoscopy have been discussed. The risks include bleeding, infection, and irritation of the bladder and urinary channel, among others. The patient, after being informed of procedural details and after questions have been answered, wishes to proceed. Full informed consent has been obtained. Will order Local anesthesia. Prophylactic abx sent to [facility]. 2. BPH with obstruction/lower urinary tract symptoms (N40.1: Benign prostatic hyperplasia with lower urinary tract symptoms) CT AP wo con 02/17/[address] [facility] - No obstruction. Prostatomegaly. Questionable scrotal wall edema. No hx of UTI. Has developed worsening urination recently. Does not always feel he empties completely, this started about 6 mos ago. Pt is also diabetic, educated this can lessen his bladder sensation and evacuation. Educated pt how incomplete emptying, caused by GARCIA but exacerbated by diabetes, can contribute to bladder stone formation. Will eval GARCIA during cysto, will likely have to consider prostate procedure in the future depending on findings. -Cysto above -Start Flomax 0.4 mg qd. SEs discussed. Rx sent to [facility]. 3. Gross hematuria (R31.0: Gross hematuria) UA shows small blood, neg for infection. Last saw blood about 1.5 mos ago. Has seen blood 6-8x in the past year with bouncing or lifting activity. -Cysto above 4. History of elevated PSA (Z87.898: Personal history of other specified conditions) PSA: 02/09/16 - 4.19 10/09/16 - 2.16 07/18/17 - 1.68 02/11/19 - 1.72 06/25/21 - 2.61 Had neg prostate bx years ago by Dr. Pena at [facility]. Elevated PSA level likely from prostatitis and exacerbated from incomplete emptying. Follow-up With When Contact Information Devendra MINER MD, URL [facility] [address], [place] [facility] [place] [address]- Additional Instructions: schedule cysto Patient Education Bladder Stone Cystoscopy I, Debbie Mario, personally scribed for Dr. Miner on 06/04/2023 14:12:52. Electronically signed by (more content not included)... 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[employer] Other HbA1c (Bld) [Mass fraction]o n 06-02-2023 A1C HEMOGLOBIN [facility] [employer] Other CT abdomen pelvis wo conon 0 02-17-2023 CT abdomen pelvis wo con [facility] Main [place] [address] [place] [address] CT Scan Report Signed Patient: Gretel Toscano MR#: [id number] : 1955 Acct:[id number] Age/Sex: 67 / M ADM Date: 02/17/23 Loc: [facility] Room: Type: [facility] Attending Dr: Светлана Erazo DO Copies to: Светлана Erazo DO Ordering Provider: Светлана Erazo DO Date of Service: 02/17/23 CT/CT abdomen pelvis wo con: Gross hematuria CT ABDOMEN AND PELVIS WITHOUT INTRAVENOUS CONTRAST: CLINICAL HISTORY: Gross hematuria for 6 months. Difficulty urinating. COMPARISON: None TECHNIQUE: Spiral images were obtained through the abdomen and pelvis without intravenous contrast. This CT exam was performed using one or more following dose reduction techniques: Automated exposure control, adjustment of the mA and/or kV according to patient size, or use of iterative reconstruction technique. FINDINGS: Lung Bases: [No acute findings.] Organs:Suboptimal evaluation due to lack of IV contrast. Hepatic steatosis. Gallbladder spleen pancreas and adrenal glands all appear unremarkable. Subcentimeter low attenuating lesion left kidney, too small for accurate characterization. No renal stone or hydronephrosis. Abdominal aorta appears normal in caliber.[ GI: Stomach is grossly unremarkable. Small bowel appears nondilated. Appendix is normal. Left colon diverticulosis.[ Pelvis:[Multiple dependent urinary bladder calculi, largest measuring 2.4 cm in greatest axial dimension. Prostatomegaly.] Peritoneum/Retroperit oneum:No free air, free fluid or lymphadenopathy.[ Abd wall/Bones:Abdominal wall demonstrates no acute findings. Questionable scrotal wall edema. Osseous structures demonstrate degenerative change.[ CT/CT abdomen pelvis wo con IMPRESSION: 1. Urinary bladder calculi, largest measuring 2.4 cm in greatest axial dimension. No obstruction is seen. 2. Prostatomegaly. 3. Left colon diverticulosis. 4. Questionable scrotal wall edema. Impression dictated by: Taco Huston Jr., D.O.02/17/2023 2:56 PM Dictation Location: [place] [address] Transcribed By: [facility] 02/17/231455 Dictated By: Taco Huston Jr, DO 02/17/231452 Signed By: 02/17/23 145 [facility] Potassium [Moles/volume] in Serum or PlasmaOrdered By: Светлана Erazo on 02-05-2023 Potassium [Moles/Vol] 4.7 mmol/L 3.5-5.1 [facility] Redraw Potassiumon Potassium [Moles/Vol] 4.7 mmol/L Normal 3.5-5.1 [facility] Comment on above: Result Comment: PERF ORMED BY: [place] [address] PATHOLOGIST SILK WINDING MACHINE OPERATOR JEAN-PIERRE ALFARO M.D. Performed By: #### R TRISTAN Puga #### [facility] [address] [place] [address] A1C with Estimated Average G luon 02-03-2023 Glucose [Mass/Vol] 169 mg/dL Normal [facility] Comment on above: Order Comment: Reaso n for Exam Type 2 diabetes mellitus without complication, without long- Result Comment: PERF ORMED BY: [place] [address] PATHOLOGIST SILK WINDING MACHINE OPERATOR JEAN-PIERRE ALFARO M.D. Performed By: #### A 1C WT eA, CMP, URMACRERAT, CBC, UA, LIPID #### [facility] [address] [place] [address] HbA1c (Bld) [Mass fraction] 7.5 % High 4.3-5.6 [facility] Comment on above: Order Comment: Reaso n for Exam Type 2 diabetes mellitus without complication, without long- Result Comment: Incr eased risk for diabetes: 5.7 - 6.4 diabetes: >6.4 glycemic control for adults with diabetes: <7.0 Performed By: #### A 1C WTH eA, CMP, URMACRERAT, CBC, UA, LIPID #### [facility] [address] Alanine aminotransferase [En zymatic activity/volume] in Serum or PlasmaOrdered By: Светлана Mast on 02-03-2023 ALT [Catalytic activity/Vol] 51 U/L 7-52 [facility] Albumin [Mass/volume] in Ser um or Plasma by Bromocresol green (BCG) dye binding methoOrdered By: Светлана Mast on 02-03-2023 Albumin BCG dye [Mass/Vol] 4.5 g/dL 3.5-5.7 [facility] Alkaline phosphatase [Enzyma tic activity/volume] in Serum or PlasmaOrdered By: Светлана Mast on 02-03-2023 ALP [Catalytic activity/Vol] 52 U/L 34-104 [facility] Aspartate aminotransferase [ Enzymatic activity/volume] in Serum or PlasmaOrdered By: Свелтана Mast on 02-03-2023 AST [Catalytic activity/Vol] 31 U/L 13-39 [facility] Basophils Auto (Bld) [#/Vol] Ordered By: Светлана Mast on 02-03-2023 Basophils (Bld) [#/Vol] 0.1 10*3/uL 0.0-0.2 [facility] Basophils/100 WBC Auto (Bld) Ordered By: Светлана Mast on 02-03-2023 Basophils/100 WBC (Bld) 1.0 % . [facility] Bilirubin Test strip Ql (U)O rdered By: Светлана Mast on 02-03-2023 Bilirubin Ql (U) Negative Negative [facility] Bilirubin.total [Mass/volume ] in Serum or PlasmaOrdered By: Светлана Mast on 02-03-2023 Bilirubin [Mass/Vol] 0.5 mg/dL 0.3-1.0 [facility] Calcium [Mass/volume] in Ser um or PlasmaOrdered By: Светлана Mast on 02-03-2023 Calcium [Mass/Vol] 9.6 mg/dL 8.6-10.3 [facility] Carbon dioxide, total [Moles /volume] in Serum or PlasmaOrdered By: Светлана Mast on 02-03-2023 CO2 [Moles/Vol] 26.4 mmol/L 21.0-31.0 [facility] Chloride [Moles/volume] in S mani or PlasmaOrdered By: Светлана Mast on 02-03-2023 Chloride [Moles/Vol] 105 mmol/L 98-107 [facility] Cholesterol [Mass/volume] in Serum or PlasmaOrdered By: Светлана Mast on 02-03-2023 Cholesterol [Mass/Vol] 202 mg/dL 140-200 [facility] Comment on above: Chol less than 200 m g/dl low riskChol 201-239 mg/dl borderline riskChol 240 mg/dl and greater high risk Cholesterol in LDL Calc [Mas s/Vol]Ordered By: Светлана Mast on 02-03-2023 Cholesterol in LDL [Mass/Vol] 129 mg/dL 0-100 [facility] Comment on above: LDL ATP III CLASSIFI CATIONLDL less than 100 mg/dL OptimalLDL 100-129 mg/dL Near or above optimalLDL 130-159 mg/dL Borderline highLDL 160-189 mg/dL HighLDL greater than 189 mg/dL Very high Cholesterol in VLDL Calc [Ma ss/Vol]Ordered By: Светлана Mast on 02-03-2023 Cholesterol in VLDL [Mass/Vol] 44 mg/dL [facility] Color Auto (U)Ordered By: Bradford ic Mast on 02-03-2023 Color (U) Yellow Yellow [facility] Complete Blood Count Auto Di ffon 02-03-2023 Basophils (Bld) [#/Vol] 0.1 10*3/uL Normal 0.0-0.2 [facility] Comment on above: Order Comment: Reaso n for Exam Type 2 diabetes mellitus without complication, without long- Result Comment: PERF ORMED BY: [place] [address] PATHOLOGIST SILK WINDING MACHINE OPERATOR JEAN-PIERRE ALFARO M.D. Performed By: #### A 1C WT eA, CMP, URMACRERAT, CBC, UA, LIPID #### [facility] [address] Basophils/100 WBC (Bld) 1.0 % Normal . [facility] Comment on above: Order Comment: Reaso n for Exam Type 2 diabetes mellitus without complication, without long- Performed By: #### A 1C WTH eA, CMP, URMACRERAT, CBC, UA, LIPID #### [facility] [address] Eosinophils (Bld) [#/Vol] 0.4 10*3/uL Normal 0.0-0.45 [facility] Comment on above: Order Comment: Reaso n for Exam Type 2 diabetes mellitus without complication, without long- Performed By: #### A 1C WTH eA, CMP, URMACRERAT, CBC, UA, LIPID #### [facility] [address] Eosinophils/100 WBC (Bld) 6.6 % Normal . [facility] Comment on above: Order Comment: Reaso n for Exam Type 2 diabetes mellitus without complication, without long- Performed By: #### A 1C WTH eA, CMP, URMACRERAT, CBC, UA, LIPID #### [facility] [address] Erythrocyte distribution width (RBC) [Ratio] 13.3 % Normal 12.0-14.8 [facility] Comment on above: Order Comment: Reaso n for Exam Type 2 diabetes mellitus without complication, without long- Performed By: #### A 1C WTH eA, CMP, URMACRERAT, CBC, UA, LIPID #### [facility] [address] Hematocrit (Bld) [Volume fraction] 37.7 % Low 38.8-50.0 [facility] Comment on above: Order Comment: Reaso n for Exam Type 2 diabetes mellitus without complication, without long- Performed By: #### A 1C WTH eA, CMP, URMACRERAT, CBC, UA, LIPID #### [facility] [address] Hemoglobin (Bld) [Mass/Vol] 12.8 g/dL Low 13.0-17.0 [facility] Comment on above: Order Comment: Reaso n for Exam Type 2 diabetes mellitus without complication, without long- Performed By: #### A 1C WTH eA, CMP, URMACRERAT, CBC, UA, LIPID #### [facility] [address] Lymphocytes (Bld) [#/Vol] 2.4 10*3/uL Normal 1.00-4.8 [facility] Comment on above: Order Comment: Reaso n for Exam Type 2 diabetes mellitus without complication, without long- Performed By: #### A 1C WTH eA, CMP, URMACRERAT, CBC, UA, LIPID #### [facility] [address] Lymphocytes/100 WBC (Bld) 36.5 % Normal . [facility] Comment on above: Order Comment: Reaso n for Exam Type 2 diabetes mellitus without complication, without long- Performed By: #### A 1C WTH eA, CMP, URMACRERAT, CBC, UA, LIPID #### [address] MCH (RBC) [Entitic mass] 30.3 pg Normal 27.5-35.2 [facility] Comment on above: Order Comment: Reaso n for Exam Type 2 diabetes mellitus without complication, without long- Performed By: #### A 1C WTH eA, CMP, URMACRERAT, CBC, UA, LIPID #### [address] MCV (RBC) [Entitic vol] 89.0 fL Normal 83.5-101 [facility] Comment on above: Order Comment: Reaso n for Exam Type 2 diabetes mellitus without complication, without long- Performed By: #### A 1C WTH eA, CMP, URMACRERAT, CBC, UA, LIPID #### [facility] [address] Mean Corpuscular HGB Conc 34.0 g/dL Normal 32.5-35.6 [facility] Comment on above: Order Comment: Reaso n for Exam Type 2 diabetes mellitus without complication, without long- Performed By: #### A 1C WTH eA, CMP, URMACRERAT, CBC, UA, LIPID #### [facility] [address] [place] [address] [place] Monocytes (Bld) [#/Vol] 0.5 10*3/uL Normal 0.0-0.8 [facility] Comment on above: Order Comment: Reaso n for Exam Type 2 diabetes mellitus without complication, without long- Performed By: #### A 1C WTH eA, CMP, URMACRERAT, CBC, UA, LIPID #### [facility] [address] Monocytes/100 WBC (Bld) 7.2 % Normal . [facility] Comment on above: Order Comment: Reaso n for Exam Type 2 diabetes mellitus without complication, without long- Performed By: #### A 1C WT eA, CMP, URMACRERAT, CBC, UA, LIPID #### [facility] [address] Neutrophils (Bld) [#/Vol] 3.2 10*3/uL Normal 1.8-7.7 [facility] Comment on above: Order Comment: Reaso n for Exam Type 2 diabetes mellitus without complication, without long- Performed By: #### A 1C WT eA, CMP, URMACRERAT, CBC, UA, LIPID #### [facility] [address] Neutrophils/100 WBC (Bld) 48.7 % Normal . [facility] Comment on above: Order Comment: Reaso n for Exam Type 2 diabetes mellitus without complication, without long- Performed By: #### A 1C WT eA, CMP, URMACRERAT, CBC, UA, LIPID #### [facility] [address] [place] [address] [place] NRBC% 0.1 /100{WBC} Normal 0-0.5 [facility] Comment on above: Order Comment: Reaso n for Exam Type 2 diabetes mellitus without complication, without long- Performed By: #### A 1C WT eA, CMP, URMACRERAT, CBC, UA, LIPID #### [facility] [address] Platelet mean volume (Bld) [Entitic vol] 9.3 fL Normal 6.6-10.1 [facility] Comment on above: Order Comment: Reaso n for Exam Type 2 diabetes mellitus without complication, without long- Performed By: #### A 1C WT eA, CMP, URMACRERAT, CBC, UA, LIPID #### [facility] [address] Platelets (Bld) [#/Vol] 156 10*3/uL Normal 150-450 [facility] Comment on above: Order Comment: Reaso n for Exam Type 2 diabetes mellitus without complication, without long- Performed By: #### A 1C WT eA, CMP, URMACRERAT, CBC, UA, LIPID #### [facility] [address] RBC (Bld) [#/Vol] 4.24 10*6/uL Normal 3.90-5.60 [facility] Comment on above: Order Comment: Reaso n for Exam Type 2 diabetes mellitus without complication, without long- Performed By: #### A 1C [facility] eA, CMP, URMACRERAT, CBC, UA, LIPID #### [facility] [address] WBC (Bld) [#/Vol] 6.5 10*3/uL Normal 4.1-10.5 [facility] Comment on above: Order Comment: Reaso n for Exam Type 2 diabetes mellitus without complication, without long- Performed By: #### A 1C WT eA, CMP, URMACRERAT, CBC, UA, LIPID #### [facility] [address] Comprehensive Metabolic Pane baldemar 02-03-2023 Albumin [Mass/Vol] 4.5 g/dL Normal 3.5-5.7 [facility] Comment on above: Order Comment: Reaso n for Exam Type 2 diabetes mellitus without complication, without long- Performed By: #### A 1C WTH eA, CMP, URMACRERAT, CBC, UA, LIPID #### [facility] [address] Albumin/Globulin [Mass ratio] 1.7 {ratio} Normal [facility] Comment on above: Order Comment: Reaso n for Exam Type 2 diabetes mellitus without complication, without long- Performed By: #### A 1C WTH eA, CMP, URMACRERAT, CBC, UA, LIPID #### [facility] [address] ALP [Catalytic activity/Vol] 52 U/L Normal 34-104 [facility] Comment on above: Order Comment: Reaso n for Exam Type 2 diabetes mellitus without complication, without long- Performed By: #### A 1C WTH eA, CMP, URMACRERAT, CBC, UA, LIPID #### [facility] [address] ALT [Catalytic activity/Vol] 51 U/L Normal 7-52 [facility] Comment on above: Order Comment: Reaso n for Exam Type 2 diabetes mellitus without complication, without long- Performed By: #### A 1C WTH eA, CMP, URMACRERAT, CBC, UA, LIPID #### [facility] [address] Anion gap [Moles/Vol] Not performed Normal 6.0-15.0 [facility] Comment on above: Order Comment: Reaso n for Exam Type 2 diabetes mellitus without complication, without long- Performed By: #### A 1C WTH eA, CMP, URMACRERAT, CBC, UA, LIPID #### [facility] [address] AST [Catalytic activity/Vol] 31 U/L Normal 13-39 [facility] Comment on above: Order Comment: Reaso n for Exam Type 2 diabetes mellitus without complication, without long- Performed By: #### A 1C WTH eA, CMP, URMACRERAT, CBC, UA, LIPID #### [facility] [address] Bilirubin [Mass/Vol] 0.5 mg/dL Normal 0.3-1.0 [facility] Comment on above: Order Comment: Reaso n for Exam Type 2 diabetes mellitus without complication, without long- Performed By: #### A 1C WTH eA, CMP, URMACRERAT, CBC, UA, LIPID #### [facility] [address] Calcium [Mass/Vol] 9.6 mg/dL Normal 8.6-10.3 [facility] Comment on above: Order Comment: Reaso n for Exam Type 2 diabetes mellitus without complication, without long- Performed By: #### A 1C WTH eA, CMP, URMACRERAT, CBC, UA, LIPID #### [facility] [address] Chloride [Moles/Vol] 105 mmol/L Normal 98-107 [facility] Comment on above: Order Comment: Reaso n for Exam Type 2 diabetes mellitus without complication, without long- Performed By: #### A 1C WTH eA, CMP, URMACRERAT, CBC, UA, LIPID #### [facility] [address] CO2 [Moles/Vol] 26.4 mmol/L Normal 21.0-31.0 [facility] Comment on above: Order Comment: Reaso n for Exam Type 2 diabetes mellitus without complication, without long- Performed By: #### A 1C WTH eA, CMP, URMACRERAT, CBC, UA, LIPID #### [facility] [address] Creatinine [Mass/Vol] 1.31 mg/dL High 0.70-1.30 [facility] Comment on above: Order Comment: Reaso n for Exam Type 2 diabetes mellitus without complication, without long- Performed By: #### A 1C WTH eA, CMP, URMACRERAT, CBC, UA, LIPID #### [facility] [address] [place] [address] [place] GFR/1.73 sq M.predicted MDRD (S/P/Bld) [Vol rate/Area] 59.660 mL/min/{1.73_m2} Normal [facility] Comment on above: Order Comment: Reaso n for Exam Type 2 diabetes mellitus without complication, without long- Performed By: #### A 1C WTH eA, CMP, URMACRERAT, CBC, UA, LIPID #### [facility] [address] Globulin (S) [Mass/Vol] 2.7 g/dL Normal [facility] Comment on above: Order Comment: Reaso n for Exam Type 2 diabetes mellitus without complication, without long- Performed By: #### A 1C WTH eA, CMP, URMACRERAT, CBC, UA, LIPID #### [facility] [address] Glucose [Mass/Vol] 163 mg/dL High 70-100 [facility] Comment on above: Order Comment: Reaso n for Exam Type 2 diabetes mellitus without complication, without long- Result Comment: [facility] Glucose Reference Range is dependent on time and content of last meal. Glucose of more than 200 mg/dL in a nonstressed, ambulatory subject supports the diagnosis of Diabetes Mellitus. ADA recommended reference range Performed By: #### A 1C WTH eA, CMP, URMACRERAT, CBC, UA, LIPID #### [facility] [address] Potassium Normal 3.5-5.1 [facility] Comment on above: Order Comment: Reaso n for Exam Type 2 diabetes mellitus without complication, without long- Result Comment: Spec imen hemolyzed, redraw requested Performed By: #### A 1C WTH eA, CMP, URMACRERAT, CBC, UA, LIPID #### [facility] [address] Protein [Mass/Vol] 7.2 g/dL Normal 6.4-8.9 [facility] Comment on above: Order Comment: Reaso n for Exam Type 2 diabetes mellitus without complication, without long- Performed By: #### A 1C WTH eA, CMP, URMACRERAT, CBC, UA, LIPID #### [facility] [address] [place] [address] [place] Sodium [Moles/Vol] 138 mmol/L Normal 136-145 [facility] Comment on above: Order Comment: Reaso n for Exam Type 2 diabetes mellitus without complication, without long- Performed By: #### A 1C WTH eA, CMP, URMACRERAT, CBC, UA, LIPID #### [facility] [address] [place] [id number] [place] Urea nitrogen [Mass/Vol] 30 mg/dL High 7-25 [facility] Comment on above: Order Comment: Reaso n for Exam Type 2 diabetes mellitus without complication, without long- Performed By: #### A 1C WTH eA, CMP, URMACRERAT, CBC, UA, LIPID #### [facility] [address] [place] [id number] [facility] Creatinine [Mass/volume] in Serum or PlasmaOrdered By: [facility] Creatinine [Mass/Vol] 1.31 mg/dL 0.70-1.30 [facility] Creatinine [Mass/volume] in UrineOrdered By: Светлана Erazo on 02-03-2023 Creatinine (U) [Mass/Vol] 100.0 mg/dL 14.0-26.0 [facility] Eosinophils Auto (Bld) [#/Vo l]Ordered By: [facility] on 02-03-2023 Eosinophils (Bld) [#/Vol] 0.4 10*3/uL 0.0-0.45 [facility] Eosinophils/100 WBC Auto (Bl d)Ordered By: [facility] on 02-03-2023 Eosinophils/100 WBC (Bld) 6.6 % . [facility] Erythrocyte distribution wid th Auto (RBC) [Ratio]Ordered By: [facility] on 02-03-2023 Erythrocyte distribution width (RBC) [Ratio] 13.3 % 12.0-14.8 [facility] Globulin Calc (S) [Mass/Vol] Ordered By: [facility] on 02-03-2023 Globulin (S) [Mass/Vol] 2.7 g/dL [facility] Glucose [Mass/volume] in Ser um or PlasmaOrdered By: [facility] on 02-03-2023 Glucose [Mass/Vol] 163 mg/dL 70-100 [facility] Comment on above: ADA recommended refe rence rangeRandom Glucose Reference Range is dependent on time and content of last meal. Glucose of more than 200 mg/dL in a nonstressed, ambulatory subject supports the diagnosis of Diabetes Mellitus. Glucose mean value [Mass/vol ume] in Blood Estimated from glycated hemoglobinOrdered By: Светлана Erazo on 02-03-2023 Average glucose Estimated from glycated hemoglobin (Bld) [Mass/Vol] 169 mg/dL [facility] Hematocrit Auto (Bld) [Volum e fraction]Ordered By: Светлана Erazo on 02-03-2023 Hematocrit (Bld) [Volume fraction] 37.7 % 38.8-50.0 [facility] Hemoglobin A1c percentageOrd ered By: Светлана Erazo on 02-03-2023 HbA1c (Bld) [Mass fraction] 7.5 % 4.3-5.6 [facility] Comment on above: Increased risk for d iabetes: 5.7 - 6.4diabetes: >6.4glycemic control for adults with diabetes: <7.0 Hemoglobin [Mass/volume] in BloodOrdered By: Светлана Erazo on 02-03-2023 Hemoglobin (Bld) [Mass/Vol] 12.8 g/dL 13.0-17.0 [facility] Ketones Auto test strip (U) [Mass/Vol]Ordered By: Светлана Erazo on 02-03-2023 Ketones (U) [Mass/Vol] Negative Negative [facility] Leukocytes [#/volume] correc dariana for nucleated erythrocytes in Blood by Automated counOrdered By: Светлана Erazo on 02-03-2023 WBC corrected for nucl RBC Auto (Bld) [#/Vol] 6.5 10*3/uL 4.1-10.5 [facility] Lipid Panelon 02-03-2023 Cholesterol [Mass/Vol] 202 mg/dL High 140-200 [facility] Comment on above: Order Comment: Reaso n for Exam Type 2 diabetes mellitus without complication, without long- Result Comment: Chol less than 200 mg/dl low risk Chol 201-239 mg/dl borderline risk Chol 240 mg/dl and greater high risk Performed By: #### A 1C WTH eA, CMP, URMACRERAT, CBC, UA, LIPID #### [facility] [address] Cholesterol in HDL [Mass/Vol] 29 mg/dL Normal 23-92 [facility] Comment on above: Order Comment: Reaso n for Exam Type 2 diabetes mellitus without complication, without long- Result Comment: HDL CHOL ATP-III CLASSIFICATION Cardiovascular Risk HDL > or equal to 60 mg/dL LOW HDL < 40 mg/dL HIGH Performed By: #### A 1C WTH eA, CMP, URMACRERAT, CBC, UA, LIPID #### [facility] [address] Cholesterol.total/Lisbeth sterol in HDL [Mass ratio] 7.0 {ratio} Normal <5.0 [facility] Comment on above: Order Comment: Reaso n for Exam Type 2 diabetes mellitus without complication, without long- Result Comment: PERF ORMED BY: [place] [address] PATHOLOGIST SILK WINDING MACHINE OPERATOR JEAN-PIERRE ALFARO M.D. Performed By: #### A 1C WTH eA, CMP, URMACRERAT, CBC, UA, LIPID #### [facility] [address] LDL Cholesterol,Calculated 129 mg/dL High 0-100 [facility] Comment on above: Order Comment: Reaso n for Exam Type 2 diabetes mellitus without complication, without long- Result Comment: LDL ATP III CLASSIFICATION LDL less than 100 mg/dL Optimal LDL 100-129 mg/dL Near or above optimal LDL 130-159 mg/dL Borderline high LDL 160-189 mg/dL High LDL greater than 189 mg/dL Very high Performed By: #### A 1C WTH eA, CMP, URMACRERAT, CBC, UA, LIPID #### [facility] [address] Triglyceride w/Reflex 222 mg/dL High 0-149 [facility] Comment on above: Order Comment: Reaso n for Exam Type 2 diabetes mellitus without complication, without long- Result Comment: TRIG ATP III CLASSIFICATION TRIG less than 150 mg/dL Normal TRIG 150-199 mg/dL Borderline high TRIG 200-500 mg/dL High TRIG greater than 500 mg/dL Very high Standard traceable to the Center for Disease Conrtrol and Prevention (CDC) test method. Performed By: #### A 1C WTH eA, CMP, URMACRERAT, CBC, UA, LIPID #### [facility] [address] VLDL CHOLESTEROL 44 mg/dL Normal [facility] Comment on above: Order Comment: Reaso n for Exam Type 2 diabetes mellitus without complication, without long- Performed By: #### A 1C WTH eA, CMP, URMACRERAT, CBC, UA, LIPID #### [facility] [address] Lymphocytes Auto (Bld) [#/Vo l]Ordered By: Светлана Mast on 02-03-2023 Lymphocytes (Bld) [#/Vol] 2.4 10*3/uL 1.00-4.8 [facility] Lymphocytes/100 WBC Auto (Bl d)Ordered By: Светлана Mast on 02-03-2023 Lymphocytes/100 WBC (Bld) 36.5 % . [facility] MCH Auto (RBC) [Entitic mass ]Ordered By: Светлана Mast on 02-03-2023 MCH (RBC) [Entitic mass] 30.3 pg 27.5-35.2 [facility] MCHC Auto (RBC) [Mass/Vol]Or dered By: Светлана Mast on 02-03-2023 MCHC (RBC) [Mass/Vol] 34.0 g/dL 32.5-35.6 [facility] MCV Auto (RBC) [Entitic vol] Ordered By: Светлана Mast on 02-03-2023 MCV (RBC) [Entitic vol] 89.0 fL 83.5-101 [facility] MicroAlb Creat Ratio,Uon Albumin DL <= 20 mg/L (U) [Mass/Vol] 3.5 mg/dL High 0.0-1.8 [facility] Comment on above: Order Comment: Reaso n for Exam Type 2 diabetes mellitus without complication, without long- Performed By: #### A 1C WTH eA, CMP, URMACRERAT, CBC, UA, LIPID #### [facility] [address] Creatinine, Urine (Random) 100.0 mg/dL High 14.0-26.0 [facility] Comment on above: Order Comment: Reaso n for Exam Type 2 diabetes mellitus without complication, without long- Performed By: #### A 1C WT eA, CMP, URMACRERAT, CBC, UA, LIPID #### [facility] [address] Microalbumin/Creatinine Ratio 35.0 mg/g High 0.0-30.0 [facility] Comment on above: Order Comment: Reaso n for Exam Type 2 diabetes mellitus without complication, without long- Result Comment: 30-3 00 mg/g indicates an increased risk for diabetic nephropathy. Greater than 300 mg/g is consistent with clinical nephropathy. (Am. J. Kidney Disease 1995, 25:107) PERFORMED BY: [facility] [address] [place] [address] PATHOLOGIST [employer]IL[employer] W[employer] MACHINE OPERATOR JEAN-PIERRE ALFARO M.D. Performed By: #### A 1C [facility] eA, CMP, URMACRERAT, CBC, UA, LIPID #### [facility] [address] [place] [id number] [facility] Microalbumin [Mass/volume] i n UrineOrdered By: Светлана Mast on 02-03-2023 Albumin DL <= 20 mg/L (U) [Mass/Vol] 3.5 mg/dL 0.0-1.8 [facility] Monocytes Auto (Bld) [#/Vol] Ordered By: Светлана Mast on 02-03-2023 Monocytes (Bld) [#/Vol] 0.5 10*3/uL 0.0-0.8 [facility] Monocytes/100 WBC Auto (Bld) Ordered By: Светлана Mast on 02-03-2023 Monocytes/100 WBC (Bld) 7.2 % . [facility] Neutrophils Auto (Bld) [#/Vo l]Ordered By: Светлана Mast on 02-03-2023 Neutrophils (Bld) [#/Vol] 3.2 10*3/uL 1.8-7.7 [facility] Neutrophils/100 WBC Auto (Bl d)Ordered By: Светлана Mast on 02-03-2023 Neutrophils/100 WBC (Bld) 48.7 % . [facility] Nitrite Test strip Ql (U)Ord ered By: Светлана Mast on 02-03-2023 Nitrite Ql (U) Negative Negative [facility] No Panel InformationOrdered By: Светлана Erazo on 02-03-2023 Estimated GFR (CKD-EPI) 59.660 mL/Min [facility] Creatinine Clearance (Chem N/A [facility] Nucleated erythrocytes [Pres ence] in Blood by Automated countOrdered By: Светлана Erazo on 02-03-2023 Nucleated RBC Auto Ql (Bld) 0.1 /100{WBC} 0-0.5 [facility] Platelet mean volume Auto (B ld) [Entitic vol]Ordered By: Светлана Erazo on 02-03-2023 Platelet mean volume (Bld) [Entitic vol] 9.3 fL 6.6-10.1 [facility] Platelets Auto (Bld) [#/Vol] Ordered By: Светлана Castro on 02-03-2023 Platelets (Bld) [#/Vol] 156 10*3/uL 150-450 [facility] Potassium [Moles/volume] in Serum or PlasmaOrdered By: Светлана Erazo on 02-03-2023 Potassium [Moles/Vol] See comment 3.5-5.1 [facility] Comment on above: Specimen hemolyzed, redraw requested Protein Auto test strip (U) [Mass/Vol]Ordered By: Светланаsegundo Erazo on 02-03-2023 Protein (U) [Mass/Vol] Negative Negative [facility] Protein [Mass/volume] in Ser um or PlasmaOrdered By: Светлана Erazo on 02-03-2023 Protein [Mass/Vol] 7.2 g/dL 6.4-8.9 [facility] RBC Auto (Bld) [#/Vol]Ordere d By: Светланаsegundo Erazo on 02-03-2023 RBC (Bld) [#/Vol] 4.24 10*6/uL 3.90-5.60 [facility] Serum or plasma albumin/glob ulin mass ratioOrdered By: Светлана Castro on 02-03-2023 Albumin/Globulin [Mass ratio] 1.7 {ratio} [facility] Serum or plasma anion gap de terminationOrdered By: Светлана Castro on 02-03-2023 Anion gap [Moles/Vol] T[facility] Comment on above: Test not performed Serum or plasma high density lipoprotein (HDL) cholesterol measurementOrdered By: [facility] on 02-03-2023 Cholesterol in HDL [Mass/Vol] 29 mg/dL 23- [facility] Comment on above: HDL CHOL ATP-III CLA SSIFICATION Cardiovascular RiskHDL > or equal to 60 mg/dL LOWHDL < 40 mg/dL HIGH Serum or plasma total choles terol/high density lipoprotein (HDL) cholesterol mass ratOrdered By: [facility] on 02-03-2023 Cholesterol.total/Lisbeth sterol in HDL [Mass ratio] 7.0 {ratio} <5.0 [facility] Sodium [Moles/volume] in Ser um or PlasmaOrdered By: [facility] on 02-03-2023 Sodium [Moles/Vol] 138 mmol/L 136-145 [facility] Specific gravity Auto test s trip (U) [Rel density]Ordered By: [facility] on 02-03-2023 Specific gravity (U) [Rel density] 1.018 1.001-1.030 [facility] Triglyceride [Mass/volume] i n Serum or PlasmaOrdered By: [facility] on 02-03-2023 Triglyceride [Mass/Vol] 222 mg/dL 0-149 [facility] Comment on above: TRIG ATP III CLASSIF ICATIONTRIG less than 150 mg/dL NormalTRIG 150-199 mg/dL Borderline highTRIG 200-500 mg/dL High TRIG greater than 500 mg/dL Very highStandard traceable to the Center for Disease Conrtrol and Prevention (CDC) test method. Urea nitrogen [Mass/volume] in Serum or PlasmaOrdered By: [facility] on 02-03-2023 Urea nitrogen [Mass/Vol] 30 mg/dL 7 [facility] Urinalysison 02-03-2023 Appearance (U) Clear Normal Clear [facility] Comment on above: Order Comment: Reaso n for Exam Gross hematuria Name Collection Type:: Voided Performed By: #### A 1C WT eA, CMP, URMACRERAT, CBC, UA, LIPID #### [facility] [address] Bilirubin,Urine Negative Normal Negative [facility] Comment on above: Order Comment: Reaso n for Exam Gross hematuria Name Collection Type:: Voided Performed By: #### A 1C WTH eA, CMP, URMACRERAT, CBC, UA, LIPID #### [facility] [address] Color (U) Yellow Normal Yellow [facility] Comment on above: Order Comment: Reaso n for Exam Gross hematuria Name Collection Type:: Voided Performed By: #### A 1C WTH eA, CMP, URMACRERAT, CBC, UA, LIPID #### [facility] [address] [place] [address] Glucose Ql (U) Normal Normal Normal [facility] Comment on above: Order Comment: Reaso n for Exam Gross hematuria Name Collection Type:: Voided Performed By: #### A 1C WTH eA, CMP, URMACRERAT, CBC, UA, LIPID #### [facility] [address] [place] [address] Ketones Ql (U) Negative Normal Negative [facility] Comment on above: Order Comment: Reaso n for Exam Gross hematuria Name Collection Type:: Voided Performed By: #### A 1C WTH eA, CMP, URMACRERAT, CBC, UA, LIPID #### [facility] [address] [place] [address] Leukocyte esterase Test strip Ql (U) Negative Normal Negative [facility] Comment on above: Order Comment: Reaso n for Exam Gross hematuria Name Collection Type:: Voided Performed By: #### A 1C WTH eA, CMP, URMACRERAT, CBC, UA, LIPID #### [facility] [address] [place] [address] [place] Nitrite,Urine Negative Normal Negative [facility] Comment on above: Order Comment: Reaso n for Exam Gross hematuria Name Collection Type:: Voided Performed By: #### A 1C WTH eA, CMP, URMACRERAT, CBC, UA, LIPID #### [facility] [address] [place] [address] Occult Blood,Urine Negative Normal Negative [facility] Comment on above: Order Comment: Reaso n for Exam Gross hematuria Name Collection Type:: Voided Result Comment: PERF ORMED BY: [place] [address] PATHOLOGIST [employer]ILK WINDING MACHINE OPERATOR JEAN-PIERRE ALFARO M.D. Performed By: #### A 1C WTH eA, CMP, URMACRERAT, CBC, UA, LIPID #### [address] pH (U) 5.0 [pH] Normal 5.0-9.0 [facility] Comment on above: Order Comment: Reaso n for Exam Gross hematuria Name Collection Type:: Voided Performed By: #### A 1C WTH eA, CMP, URMACRERAT, CBC, UA, LIPID #### [address] Protein,Urine Negative Normal Negative [facility] Comment on above: Order Comment: Reaso n for Exam Gross hematuria Name Collection Type:: Voided Performed By: #### A 1C WTH eA, CMP, URMACRERAT, CBC, UA, LIPID #### [address] Specificy [place],Urine 1.018 Normal 1.001-1.030 [facility] Comment on above: Order Comment: Reaso n for Exam Gross hematuria Name Collection Type:: Voided Performed By: #### A 1C WTH eA, CMP, URMACRERAT, CBC, UA, LIPID #### [address] Urobilinogen,Urine Normal Normal Normal [facility] Comment on above: Order Comment: Reaso n for Exam Gross hematuria Name Collection Type:: Voided Performed By: #### A 1C WTH eA, CMP, URMACRERAT, CBC, UA, LIPID #### [address] Urine clarity by refractomet ry automatedOrdered By: Светлана Erazo on 02-03-2023 Clarity Refractometry automated (U) Clear Clear [facility] Urine glucose measurement by automated test strip (mass/volume)Ordered By: Светлана Erazo on 02-03-2023 Glucose Auto test strip (U) [Mass/Vol] Normal mg/dL Normal [facility] Urine hemoglobin detection b y automated test stripOrdered By: Светлана Erazo on 02-03-2023 Hemoglobin Auto test strip Ql (U) Negative Negative [facility] Urine leukocyte esterase det ection by automated test stripOrdered By: Светлана Castro on 02-03-2023 Leukocyte esterase Auto test strip Ql (U) Negative Negative [facility] Urine microalbumin/creatinin e mass ratioOrdered By: Светлана Mast on 02-03-2023 Albumin/Creatinine DL <= 20 mg/L (U) [Mass ratio] 35.0 mg/g 0.0-30.0 [facility] Comment on above: 30-300 mg/g indicate s an increased risk for diabetic nephropathy. Greater than 300 mg/g is consistent with clinical nephropathy. (Am. J. Kidney Disease 1995, 25:107) Urobilinogen Auto test strip (U) [Mass/Vol]Or[facility]: [facility] 02-03-[facility] Urobilinogen (U) [Mass/Vol] Normal mg/dL Normal [facility] WBC Auto (Bld) [#/Vol]Ordere d By: Светлана Mast on 02-03-2023 WBC (Bld) [#/Vol] 6.5 10*3/uL 4.1-10.5 [facility] pH Auto test strip (U)Ordere d By: Светлана Mast on 02-03-2023 pH (U) 5.0 [pH] 5.0-9.0 [facility] - Molecular patho logyon 06-27-2022 Noninvasive colorectal cancer DNA and occult blood screening Ted (Stl) [Interp] Positive Abnormal Negative -[facility] Work Phone: Comment on above: [employer] (CLIA #:[id number])[address] [place] [address] DEBBY BARRIOS , Clinical Laboratory Medical DirectorPOSITIVE TEST RESULT. A positive Cologuard result should be followed with a colonoscopy or visual examination of the colon. The normal value (reference range) for this assay is negative.TEST DESCRIPTION: Composite algorithmic analysis of stool DNA-biomarkers with hemoglobin immunoassay. Quantitative values of individual biomarkers are not reportable and are not associated with individual biomarker result reference ranges. Cologuard is intended for colorectal cancer screening of adults of either sex, 45 years or older, who are at average-risk for colorectal cancer (CRC). Cologuard has been approved for use by the U.S. FDA. The performance of Cologuard was established in a cross sectional study of average-risk adults aged 50-84. Cologuard performance in patients ages 45 to 49 years was estimated by sub-group analysis of near-age groups. Colonoscopies performed for a positive result may find as the most clinically significant lesion: colorectal cancer [4.0%], advanced adenoma (including sessile serrated polyps greater than or equal to 1cm diameter) [20%] or non- advanced adenoma [31%]; or no colorectal neoplasia [45%]. These estimates are derived from a prospective cross-sectional screening study of 10,000 individuals at average risk for colorectal cancer who were screened with both Cologuard and colonoscopy. (Berto Caicedo et al, N Engl J Med 2014;370(14):5014-9661.) Cologuard may produce a false negative or false positive result (no colorectal cancer or precancerous polyp present at colonoscopy follow up). A negative Cologuard test result does not guarantee the absence of CRC or advanced adenoma (pre-cancer). The current Cologuard screening interval is every 3 years. ([place] [employer] Society and U.S. Multi-Society Task Force). Cologuard performance data in a 10,000 patient pivotal study using colonoscopy as the reference method can be accessed at the following location: www.TheSedge.org/results. Additional description of the Cologuard test process, warnings and precautions can be found at www.Stem CentRxrd.com. Blood Pressure Cuff Sizeon 1 08-15-2021 Adult depression screening assessment No [employer] Work Phone: Fall risk assessment a) No falls within the last year [employer] Work Phone: Tobacco use status CPHS b) No [facility] [employer] Work Phone: Blood [facility] Cuff Size [facility] Phone: Office Visit (Internal Medic ine)on 06-14-2022 Follow-up visit Diagnoses/Problems Assessed Screening for colorectal cancer (V76.51,V76.41) (Z12.11,Z12.12) Type 2 diabetes mellitus (250.00) (E11.9) HTN (hypertension) (401.9) (I10) Orders HTN (hypertension) Continue: Lisinopril 10 MG Oral Tablet; Take 1 tablet daily Rx By: Delia Ulloa; Dispense: 0 Days ; #:90 Tablet; Refill: 3;For: HTN (hypertension); YADI = N; Verified Transmission to [facility]; Last Updated By: Nakia Buckley; 06/14/2022 9:05:16 AM Screening for colorectal cancer Cologuard Screening; Status:Active; Requested for:[id number]; Perform:Cologuard Non [facility]; Due:12Sep2022;Ordered ; For:Screening for colorectal cancer; Ordered By:Delia Ulloa; Type 2 diabetes mellitus Continue: Basaglar KwikPen 100 UNIT/ML Subcutaneous Solution Pen-injector; INJECT 15 UNIT Daily Rx By: Delia Ulloa; Dispense: 90 Days ; #:1 X 5 x 3 ML Pen; Refill: 3;For: Type 2 diabetes mellitus; YADI = N; Verified Transmission to [facility]; Last Updated By: Nakia Buckley; 06/14/2022 9:05:16 AM Continue: BD Pen Needle Sadaf U/F 32G X 4 MM; uses 1 daily Rx By: Delia Ulloa; Dispense: 0 Days ; #:1 X 100 Unit Box; Refill: 3;For: Type 2 diabetes mellitus; YADI = N; Verified Transmission to [facility]; Last Updated By: Nakia Buckley; 06/14/2022 9:05:16 AM Continue: metFORMIN HCl ER 500 MG Oral Tablet Extended Release 24 Hour; TAKE 1 TABLET 3 times daily Rx By: Delia Ulloa; Dispense: 90 Days ; #:270 Tablet; Refill: 3;For: Type 2 diabetes mellitus; YADI = N; Verified Transmission to [id number]; Last Updated By: Nakia Buckley; 06/14/2022 9:05:16 AM Continue: OneTouch Delica Plus [id number]; Use 3 times daily as directed Rx By: Delia Ulloa; Dispense: 0 Days ; #:3 X 100 Unit Box; Refill: 3;For: Type 2 diabetes mellitus; YADI = N; Verified Transmission to [facility]; Msg to Pharmacy: e11.9 on insulin; Last Updated By: Nakia Buckley; 06/14/2022 9:05:16 AM Continue: OneTouch Ultra In Vitro Strip; USE TO TEST BLOOD GLUCOSE LEVELS 3 TIMES A DAY Rx By: Delia Ulloa; Dispense: 0 Days ; #:3 X 100 Strip Box; Refill: 3;For: Type 2 diabetes mellitus; YADI = N; Verified Transmission to [facility]; Msg to Pharmacy: e11.9 on insulin; Last Updated By: Nakia Buckley; 06/14/2022 9:05:16 AM Formulary Override Reason: Drug has been unsuccessful in the past Continue: Repaglinide 2 MG Oral Tablet; TAKE 1 TABLET BY MOUTH THREE TIMES DAILY Rx By: Delia Ulloa; Dispense: 90 Days ; #:270 Tablet; Refill: 3;For: Type 2 diabetes mellitus; YADI = N; Verified Transmission to [facility]; Last Updated By: Nakia Buckley; 06/14/2022 9:05:16 AM Patient Discussion/Summary cologuard follow 5--6 months bogdan discussed...declines get cards dr. pablo e(dr majano.. [facility]) same program Provider Impressions dm ok control bp good on rx Chief Complaint her e for DM / bp follow up History of Present Illnesscards visit. ( i have no note) had stress test ... i need notes. apparently julián considered ,,cards said he would get back to him(didn?tt) pt. has statin intolerance bp ok on rx lipids..ideally should be on lipid rx but is intolerant of meds dm agent basag 15 metf repag a1c 7.2 ..2021 hgm 117 range had flu sjhot eye dr up to date Review of Systems Constitutional: no fever, no chills, not feeling poorly and not feeling tired. ENT: no sore throat and no hoarseness. Cardiovascular: no chest pain, no palpitations and no lower extremity edema. Respiratory: no cough and no shortness of breath during exertion. Gastrointestinal: no abdominal pain, no nausea and no diarrhea. Neurological: no headache and no dizziness. Active Problems Problems Body mass index (BMI) of 31.0 to 31.9 in adult (V85.31) (Z68.31) Coronary atherosclerosis (414.00) (I25.10) Cough (786.2) (R05.9) COVID (079.89) (U07.1) Elevated PSA (790.93) (R97.20) Encounter for immunization (V03.89) (Z23) Encounter for prostate cancer screening (V76.44) (Z12.5) HTN (hypertension) (401.9) (I10) Hypercholesteremia (272.0) (E78.00) Medicare annual wellness visit, initial (V70.0) (Z00.00) Rhinitis, chronic (472.0) (J31.0) Screening for colorectal cancer (V76.51,V76.41) (Z12.11,Z12.12) Type 2 diabetes mellitus (250.00) (E11.9) Social History Problems Currently working Never smoker No caffeine use Non-smoker (V49.89) (Z78.9) Occasional alcohol use Single Allergies Medication Pioglitazone HCl TABS Recorded By: Delia Ulloa; 07/20/2018 9:13:49 AM Sulfa Drugs Recorded By: Delia Ulloa; 10/26/2013 1:04:52 PM Tradjenta TABS Recorded By: Delia Ulloa; 04/22/2014 9:44:40 AM Welchol Recorded By: Delia Ulloa; 03/23/2018 10:18:16 AM Zetia TABS Recorded By: Delia Ulloa; 07/25/2017 9:02:00 AM Current Meds Medication NameInstruction Basaglar KwikPen 100 UNIT/ML Subcutaneous Solution Pen-injectorINJECT 15 UNIT Daily BD Pen Needle Sadaf U/F 32G X 4 MMuses 1 daily Lisinop (more content not included)... Normal trend.ly BASIC METABOLIC PANELon 12-0 Anion gap [Moles/Vol] 13 mmol/L Normal 10 - 20 [facility] Comment on above: Order Comment: PATIE NT FASTING Performed By: #### B MP #### [facility] [address] [place] [address] Calcium [Mass/Vol] 9.9 mg/dL Normal 8.6 - 10.6 [facility] Comment on above: Order Comment: PATIE NT FASTING Performed By: #### B MP #### [facility] [address] [place] [address] Chloride [Moles/Vol] 103 mmol/L Normal 98 - 107 [facility] Comment on above: Order Comment: PATIE NT FASTING Performed By: #### B MP #### [facility] [address] [place] [address] Creatinine [Mass/Vol] 1.33 mg/dL High 0.50 - 1.30 [facility] Comment on above: Order Comment: PATIE NT FASTING Performed By: #### B MP #### [facility] [address] [place] [address] GFR/1.73 sq M.predicted among non-blacks MDRD (S/P/Bld) [Vol rate/Area] 59 mL/min/{1.73_m2} Abnormal >90 [facility] Comment on above: Order Comment: PATIE NT FASTING Result Comment: CALC ULATIONS OF ESTIMATED GFR ARE PERFORMED USING THE 2020 CKD-EPI STUDY REFIT EQUATION WITHOUT THE RACE VARIABLE FOR THE IDMS-TRACEABLE CREATININE METHODS. https://jasn.asnjournals.org/content/early/ASN.2020 810903 Performed By: #### B MP #### [facility] [address] [place] [address] Glucose [Mass/Vol] 177 mg/dL High 74 - 99 [facility] Comment on above: Order Comment: PATIE NT FASTING Performed By: #### B MP #### [facility] [address] [place] [address] HCO3 (Bld) [Moles/Vol] 26 mmol/L Normal 21 - 32 [facility] Comment on above: Order Comment: PATIE NT FASTING Performed By: #### B MP #### [facility] [address] [place] [address] Potassium [Moles/Vol] 5.3 mmol/L Normal 3.5 - 5.3 [facility] Comment on above: Order Comment: PATIE NT FASTING Performed By: #### B MP #### [facility] [address] [place] [address] Sodium [Moles/Vol] 137 mmol/L Normal 136 - 145 [facility] Comment on above: Order Comment: PATIE NT FASTING Performed By: #### B MP #### [facility] [address] [place] [address] Urea nitrogen [Mass/Vol] 31 mg/dL High 6 - 23 [facility] Comment on above: Order Comment: PATIE NT FASTING Performed By: #### B MP #### [facility] [address] [place] [address] HEMOGLOBIN A1Con 06-07-2022 Glucose [Mass/Vol] 160 mg/dL Normal [facility] Comment on above: Order Comment: PATIE NT FASTING Performed By: #### H BA1E #### [facility] [address] [place] [address] HbA1c (Bld) [Mass fraction] 7.2 % Abnormal [facility] Comment on above: Order Comment: PATIE NT FASTING Result Comment: Diag nosis of Diabetes-Adults Non-Diabetic: < or = 5.6% Increased risk for developing diabetes: 5.7-6.4% Diagnostic of diabetes: > or = 6.5% . Monitoring of Diabetes Age (y) Therapeutic Goal (%) Adults: >18 <7.0 Pediatrics: 13-18 <7.5 7-12 <8.0 0- 6 7.5-8.5 [place] [employer]. Diabetes Care 33(S1), Jun 2009. Performed By: #### H BA1E #### [facility] [address] [place] [address] Hemoglobin A1Con 06-07-2022 Glucose [Mass/Vol] 160 mg/dL -[facility] Work Phone: HbA1c (Bld) [Mass fraction] 7.2 % Abnormal -[facility] Work Phone: Comment on above: Diagnosis of Diabete s-Adults Non-Diabetic: < or = 5.6% Increased risk for developing diabetes: 5.7-6.4% Diagnostic of diabetes: > or = 6.5%. Monitoring of Diabetes Age (y) Therapeutic Goal (%) Adults: >18 <7.0 Pediatrics: 13-18 <7.5 7-12 <8.0 0- 6 7.5-8.5 [place] [employer]. Diabetes Care 33(S1), Jun 2009. LIPID PANEL (CORONARY RISK 2 )on 06-07-2022 Cholesterol [Mass/Vol] 196 mg/dL Normal 0 - 199 [facility] Comment on above: Order Comment: PATIE NT FASTING Result Comment: . AGE DESIRABLE BORDERLINE HIGH HIGH 0-19 Y 0 - 169 170 - 199 >/= 200 20-24 Y 0 - 189 190 - 224 >/= 225 >24 Y 0 - 199 200 - 239 >/= 240 All ranges are based on fasting samples. Specific therapeutic targets will vary based on patient-specific cardiac risk. . Pediatric guidelines reference:Pediatrics 2011, 128(S5). Adult guidelines reference: NCEP ATPIII Guidelines, DARINEL 2001, 258:2486-97 . Venipuncture immediately after or during the administration of Metamizole may lead to falsely low results. Testing should be performed immediately prior to Metamizole dosing. Performed By: #### L IPID #### [facility] [address] [place] [address] Cholesterol in HDL [Mass/Vol] 30.1 mg/dL Abnormal [facility] Comment on above: Order Comment: PATIE NT FASTING Result Comment: . AGE VERY LOW LOW NORMAL HIGH 0-19 Y < 35 < 40 40-45 ---- 20-24 Y ---- < 40 >45 ---- >24 Y ---- < 40 40-60 >60 . Performed By: #### L IPID #### [facility] [address] [place] [address] Cholesterol in LDL [Mass/Vol] 134 mg/dL High 0 - 99 [facility] Comment on above: Order Comment: PATIE NT FASTING Result Comment: . NEAR BORD AGE DESIRABLE OPTIMAL HIGH HIGH VERY HIGH 0-19 Y 0 - 109 --- 110-129 >/= 130 ---- 20-24 Y 0 - 119 --- 120-159 >/= 160 ---- >24 Y 0 - 99 100-129 130-159 160-189 >/=190 . Performed By: #### L IPID #### [facility] [address] [place] [address] Cholesterol in VLDL [Mass/Vol] 32 mg/dL Normal 0 - 40 [facility] Comment on above: Order Comment: PATIE NT FASTING Performed By: #### L IPID #### [facility] [address] [place] [address] Cholesterol.total/Lisbeth sterol in HDL [Mass ratio] 6.5 {ratio} Abnormal [facility] Comment on above: Order Comment: PATIE NT FASTING Result Comment: REF VALUES DESIRABLE < 3.4 HIGH RISK > 5.0 Performed By: #### L IPID #### [facility] [address] [place] [address] Triglyceride [Mass/Vol] 160 mg/dL High 0 - 149 [facility] Comment on above: Order Comment: PATIE NT FASTING Result Comment: . AGE DESIRABLE BORDERLINE HIGH HIGH VERY HIGH 0 D-90 D 19 - 174 ---- ---- ---- 91 D- 9 Y 0 - 74 75 - 99 >/= 100 ---- 10-19 Y 0 - 89 90 - 129 >/= 130 ---- 20-24 Y 0 - 114 115 - 149 >/= 150 ---- >24 Y 0 - 149 150 - 199 200- 499 >/= 500 . Venipuncture immediately after or during the administration of Metamizole may lead to falsely low results. Testing should be performed immediately prior to Metamizole dosing. Performed By: #### L IPID #### [facility] [address] [place] [address] Laboratory - Chemistry and C hemistry - challengeon 06-07-2022 Anion gap [Moles/Vol] 13 mmol/L 10 - 20 - [facility] Work Phone: Calcium [Mass/Vol] 9.9 mg/dL 8.6 - 10.6 MP-Juliane ect [facility] Work Phone: Chloride [Moles/Vol] 103 mmol/L 98 - 107 MP-S elect [facility] Work Phone: CO2 [Moles/Vol] 26 mmol/L 21 - 32 -[facility] Work Phone: Creatinine [Mass/Vol] 1.33 mg/dL above high threshold See Below MP-[facility] Work Phone: Comment on above: Reference Range: 0.5 0 - 1.30 Glucose [Mass/Vol] 177 mg/dL above high threshold 74 - 99 -[facility] Work Phone: Potassium [Moles/Vol] 5.3 mmol/L 3.5 - 5.3 - [facility] Work Phone: Sodium [Moles/Vol] 137 mmol/L 136 - 145 MP-Juliane [facility] Work Phone: Urea nitrogen [Mass/Vol] 31 mg/dL above high threshold 6 - 23 -[facility] Work Phone: Lipid Panelon 06-07-2022 Cholesterol [Mass/Vol] 196 mg/dL 0 - 199 -[facility] Work Phone: Comment on above: . AGE DESIRABLE BORD FAITH HIGH HIGH 0-19 Y 0 - 169 170 - 199 >/= 200 20-24 Y 0 - 189 190 - 224 >/= 225 >24 Y 0 - 199 200 - 239 >/= 240 All ranges are based on fasting samples. Specific therapeutic targets will vary based on patient-specific cardiac risk.. Pediatric guidelines reference:Pediatrics 2011, 128(S5). Adult guidelines reference: NCEP ATPIII Guidelines, DARINEL 2001, 258:2486-97. Venipuncture immediately after or during the administration of Metamizole may lead to falsely low results. Testing should be performed immediately prior to Metamizole dosing. Cholesterol in HDL [Mass/Vol] 30.1 mg/dL Abnormal [employer] [facility] Work Phone: Comment on above: . AGE VERY LOW LOW N ORMAL HIGH 0-19 Y < 35 < 40 40-45 ---- 20-24 Y ---- < 40 >45 ---- >24 Y ---- < 40 40-60 >60. Cholesterol in LDL [Mass/Vol] 134 mg/dL above high threshold 0 - 99 [employer] [facility] Work Phone: Comment on above: . NEAR BORD AGE PATRICIA RABLE OPTIMAL HIGH HIGH VERY HIGH 0-19 Y 0 - 109 --- 110-129 >/= 130 ---- 20-24 Y 0 - 119 --- 120-159 >/= 160 ---- >24 Y 0 - 99 100-129 130-159 160-189 >/=190. Cholesterol.total/Lisbeth sterol in HDL [Mass ratio] 6.5 {ratio} Abnormal [employer] [facility] Work Phone: Comment on above: REF VALUESDESIRABLE < 3.4HIGH RISK > 5.0 Triglyceride [Mass/Vol] 160 mg/dL above hi gh threshold 0 - 149 [employer] [facility] Work Phone: Comment on above: . AGE DESIRABLE BORD FAITH HIGH HIGH VERY HIGH 0 D-90 D 19 - 174 ---- ---- ----91 D- 9 Y 0 - 74 75 - 99 >/= 100 ---- 10-19 Y 0 - 89 90 - 129 >/= 130 ---- 20-24 Y 0 - 114 115 - 149 >/= 150 ---- >24 Y 0 - 149 150 - 199 200- 499 >/= 500. Venipuncture immediately after or during the administration of Metamizole may lead to falsely low results. Testing should be performed immediately prior to Metamizole dosing. Lipid Panel 32 mg/dL 0 - 40 [employer] [facility] Work Phone: No Panel Informationon 06-07 59 {mL/min/1.73m2} Abnormal >90 [facility] [employer] Work Phone: Comment on above: CALCULATIONS OF KHADAR MATED GFR ARE PERFORMED USING THE 2020 CKD-EPI STUDY REFIT EQUATION WITHOUT THE RACE VARIABLE FOR THE IDMS-TRACEABLE CREATININE METHODS.https://jasn.asnjournals.org/content// ASN.5324383830 Blood Pressure Cuff Sizeon 0 01-18-2022 Fall risk assessment a) No falls within the last year [employer] Work Phone: Tobacco use status CPHS b) No M P[facility] Work Phone: Blood Pressure Cuff Size Adult [employer] Work Phone: IO Hgb A1Con 01-18-2022 HbA1c (Bld) [Mass fraction] 7.1 % 4.2-6.5% [employer] Work Phone: Office Visit (Internal Medic ine)on 01-18-2022 Follow-up visit Diagnoses/Problems Assessed Type 2 diabetes mellitus (250.00) (E11.9) HTN (hypertension) (401.9) (I10) Orders HTN (hypertension) Renew: Lisinopril 10 MG Oral Tablet; Take 1 tablet daily Rx By: Delia Ulloa; Dispense: 0 Days ; #:90 Tablet; Refill: 3;For: HTN (hypertension); YADI = N; Verified Transmission to [facility]; Last Updated By: Orgdot; 01/18/2022 1:36:13 PM Type 2 diabetes mellitus Renew: Basaglar KwikPen 100 UNIT/ML Subcutaneous Solution Pen-injector; INJECT 15 UNIT Daily Rx By: Delia Ulloa; Dispense: 90 Days ; #:1 X 5 x 3 ML Pen; Refill: 3;For: Type 2 diabetes mellitus; YADI = N; Verified Transmission to [facility]; Last Updated By: Orgdot; 01/18/2022 1:36:13 PM Basic Metabolic Panel; Status:Active; Requested for:[id number]; Perform:Lab Services - Lab To Draw (Blood Test); Due:18Apr2022;Ordered ; For:Type 2 diabetes mellitus; Ordered By:Delia Ulloa; Renew: BD Pen Needle Sadaf U/F 32G X 4 MM; uses 1 daily Rx By: Delia Ulloa; Dispense: 0 Days ; #:1 X 100 Unit Box; Refill: 3;For: Type 2 diabetes mellitus; YADI = N; Verified Transmission to [facility]; Last Updated By: Samreen CoronadoBizen; 01/18/2022 1:36:15 PM Hemoglobin A1C; Status:Active; Requested for:18Jan2022; Perform:Lab Services - Lab To Draw (Blood Test); Due:18Apr2022;Ordered ; For:Type 2 diabetes mellitus; Ordered By:Delia Ulloa; Renew: metFORMIN HCl ER 500 MG Oral Tablet Extended Release 24 Hour; TAKE 1 TABLET 3 times daily Rx By: Delia Ulloa; Dispense: 90 Days ; #:270 Tablet; Refill: 3;For: Type 2 diabetes mellitus; YADI = N; Verified Transmission to [facility]; Last Updated By: Cliff [employer]; 01/18/2022 1:36:16 PM IO Hgb A1C; Status:Resulted - Requires Verification; Done: 18Jan2022 11:32AM Performed:In Office; Due:18Apr2022; Last Updated By:Nakia Buckley; 01/18/2022 11:32:48 AM;Ordered; For:Type 2 diabetes mellitus; Ordered By:Delia Ulloa; Renew: OneTouch Delica Plus [id number]; Use 3 times daily as directed Rx By: Delia Ulloa; Dispense: 0 Days ; #:3 X 100 Unit Box; Refill: 3;For: Type 2 diabetes mellitus; YADI = N; Verified Transmission to [facility]; Msg to Pharmacy: e11.9 on insulin; Last Updated By: Cliff [employer]; 01/18/2022 1:36:12 PM Lipid Panel; Status:Active; Requested for:18Jan2022; Perform:Lab Services - Lab To Draw (Blood Test); Due:18Apr2022;Ordered ; For:Type 2 diabetes mellitus; Ordered By:Delia Ulloa; Renew: OneTouch Ultra In Vitro Strip; USE TO TEST BLOOD GLUCOSE LEVELS 3 TIMES A DAY Rx By: Delia Ulloa; Dispense: 0 Days ; #:3 X 100 Strip Box; Refill: 3;For: Type 2 diabetes mellitus; YADI = N; Verified Transmission to [facility]; Msg to Pharmacy: e11.9 on insulin; Last Updated By: Cliff [employer]; 01/18/2022 1:36:12 PM Formulary Override Reason: Drug has been unsuccessful in the past Renew: Repaglinide 2 MG Oral Tablet; TAKE 1 TABLET BY MOUTH THREE TIMES DAILY Rx By: Delia Ulloa; Dispense: 90 Days ; #:270 Tablet; Refill: 3;For: Type 2 diabetes mellitus; YADI = N; Verified Transmission to [facility]; Last Updated By: Orgdot; 01/18/2022 1:36:10 PM Patient Discussion/Summary same meds follow 5 monthds see cards 2021 Provider Impressions bp/ dm clin fine high cor art calcium score ....to see cards. Chief Complaint dm / bp follow up History of Present Illnesscards appt. 2021 dr majano ([facility]) r. arm issue resolved hgm fbs 140--150s..seems a little higher to him takes meds fine no sob no cjhest pains no hypos Review of Systems Constitutional: no fever, no chills and not feeling tired. ENT: no sore throat and no hoarseness. Cardiovascular: no chest pain, no palpitations and no lower extremity edema. Respiratory: no cough and no shortness of breath during exertion. Gastrointestinal: no abdominal pain, no nausea and no diarrhea. Genitourinary: no dysuria. Musculoskeletal: no arthralgias and no myalgias. Neurological: no headache and no dizziness. Active Problems Problems Body mass index (BMI) of 31.0 to 31.9 in adult (V85.31) (Z68.31) Coronary atherosclerosis (414.00) (I25.10) Cough (786.2) (R05.9) Elevated PSA (790.93) (R97.20) Encounter for immunization (V03.89) (Z23) Encounter for prostate cancer screening (V76.44) (Z12.5) HTN (hypertension) (401.9) (I10) Hypercholesteremia (272.0) (E78.00) Medicare annual wellness visit, initial (V70.0) (Z00.00) Rhinitis, chronic (472.0) (J31.0) Screening for colorectal cancer (V76.51,V76.41) (Z12.11,Z12.12) Type 2 diabetes mellitus (250.00) (E11.9) Social History Problems Currently working Never smoker No caffeine use Non-smoker (V49.89) (Z78.9) Occasional alcohol use Single Allergies Medication Pioglitazone HCl TABS Recorded By: Delia Ulloa; 07/20/2018 9:13:49 AM [facility] Recorded By: Delia Ulloa; 10/26/2013 1:04:52 PM Tradjenta TABS Recorded By: Delia Ulloa; (more content not included)... Normal [facility] Activated partial thrombopla stin time (aPTT) in platelet poor plasma by coagulation aOrdered By: Darien Florentino on 12-07-2021 aPTT Coag (PPP) [Time] 33.3 s 25.1-36.5 Fi [facility] Albumin [Mass/volume] in Ser um or PlasmaOrdered By: Darien Florentino on 12-07-2021 Albumin [Mass/Vol] 4.4 g/dL 3.2-5.5 [facility] Basophils Auto (Bld) [#/Vol] Ordered By: Darien Florentino on 12-07-2021 Basophils (Bld) [#/Vol] 0.1 10*3/uL 0.0-0.2 [facility] Basophils/100 WBC Auto (Bld) Ordered By: Darien Florentino on 12-07-2021 Basophils/100 WBC (Bld) 0.8 % [facility] Blood hemoglobin measurement (mass/volume)Ordered By: Darien Florentino on 12-07-2021 Hemoglobin (Bld) [Mass/Vol] 13.5 g/dL 13.0-17.0 [facility] Blood leukocytes automated c ount (number/volume)Ordered By: Darien Florentino on 12-07-2021 WBC (Bld) [#/Vol] 6.9 10*3/uL 4.5-11.0 [facility] Creatinine and Glomerular fi ltration rate.predicted panel (S/P/Bld)Ordered By: Darien Florentino on 12-07-2021 Creatinine [Mass/Vol] 1.27 mg/dL 0.64-1.27 [facility] Eosinophils Auto (Bld) [#/Vo l]Ordered By: Darien Florentino on 12-07-2021 Eosinophils (Bld) [#/Vol] 0.5 10*3/uL 0.0-0.45 [facility] Eosinophils/100 WBC Auto (Bl d)Ordered By: Darien Florentino on 12-07-2021 Eosinophils/100 WBC (Bld) 6.6 % [facility] Erythrocyte distribution wid th Auto (RBC) [Ratio]Ordered By: Darien Florentino on 12-07-2021 Erythrocyte distribution width (RBC) [Ratio] 13.1 % 12.0-14.8 [facility] Estimated glomerular filtrat ion rate (GFR) non- AmericanOrdered By: Darien Florentino on 12-07-2021 GFR/1.73 sq M.predicted among non-blacks MDRD (S/P/Bld) [Vol rate/Area] 57 mL/Min [facility] Globulin Calc (S) [Mass/Vol] Ordered By: Darien Florentino on 12-07-2021 Globulin (S) [Mass/Vol] 3.1 g/dL [facility] Hematocrit Auto (Bld) [Volum e fraction]Ordered By: Darien Florentino on 12-07-2021 Hematocrit (Bld) [Volume fraction] 40.2 % 38.8-50.0 [facility] Laboratory - CoagulationOrde red By: Darien Florentino on 12-07-2021 PT Coag (PPP) [Time] 12.5 s 9.0-12.9 [facility] - Hematology and Cell countsOrdered By: Darien Florentino on 12-07-2021 Nucleated RBC/100 WBC (Bld) [Ratio] 0.1 % 0-0.5 [facility] Lymphocytes Auto (Bld) [#/Vo l]Ordered By: Darien Florentino on 12-07-2021 Lymphocytes (Bld) [#/Vol] 2.6 10*3/uL 1.00-4.8 [facility] Lymphocytes/100 WBC Auto (Bl d)Ordered By: Darien Florentino on 12-07-2021 Lymphocytes/100 WBC (Bld) 36.8 % [facility] MCH Auto (RBC) [Entitic mass ]Ordered By: Darien Florentino on 12-07-2021 MCH (RBC) [Entitic mass] 30.2 pg 27.5-35.2 [facility] MCHC Auto (RBC) [Mass/Vol]Or dered By: Darien Florentino on 12-07-2021 MCHC (RBC) [Mass/Vol] 33.6 g/dL 32.5-35.6 [facility] MCV Auto (RBC) [Entitic vol] Ordered By: Darien Florentino on 12-07-2021 MCV (RBC) [Entitic vol] 89.9 fL 83.5-101 [facility] Monocytes Auto (Bld) [#/Vol] Ordered By: Darien Florentino on 12-07-2021 Monocytes (Bld) [#/Vol] 0.5 10*3/uL 0.0-0.8 [facility] Monocytes/100 WBC Auto (Bld) Ordered By: Darien Florentino on 12-07-2021 Monocytes/100 WBC (Bld) 6.8 % [facility] Neutrophils Auto (Bld) [#/Vo l]Ordered By: Darien Florentino on 12-07-2021 Neutrophils (Bld) [#/Vol] 3.4 10*3/uL 1.8-7.7 [facility] Neutrophils/100 WBC Auto (Bl d)Ordered By: Darien Florentino on 12-07-2021 Neutrophils/100 WBC (Bld) 49.0 % [facility] No Panel InformationOrdered By: Darien Florentino on 12-07-2021 Estimated GFR () > 60 mL/Min [facility] Comment on above: GFR estimated refere nce range: According to KDOQI guidelines, <60 ml/min/1.73m2 is sufficient to diagnose a patient with chronic kidney disease. Pharmacy Creatinine Clearance (Chem 65.08 [facility] Platelet mean volume Auto (B ld) [Entitic vol]Ordered By: Darien Florentino on 12-07-2021 Platelet mean volume (Bld) [Entitic vol] 9.0 fL 6.6-10.1 [facility] Platelet poor plasma interna tional normalized ratio (INR) by coagulation assay (relatOrdered By: Darien Florentino on 12-07-2021 INR Coag (PPP) [Relative time] 1.1 {INR} [facility] Comment on above: INR Therapeutic Rang e A) Pre- and Peroperative OAT started two weeks before surgery. NOT HIP SURGERY: 1.5 - 2.5 HIP SURGERY: 2 - 3 B) Primary and secondary prevention of venous THROMBOSIS: 2 - 3 C) Active venous thrombosis, pulmonary embolism and prevention of recurrent venous thrombosis: 2 - 3 D) Prevention of arterial thromboembolism including patients with mechanical heart valves: 3 - 4.5 Platelets Auto (Bld) [#/Vol] Ordered By: Darien Florentino on 12-07-2021 Platelets (Bld) [#/Vol] 189 10*3/uL 150-450 [facility] Protein [Mass/volume] in Ser um or PlasmaOrdered By: Darien Florentino on 12-07-2021 Protein [Mass/Vol] 7.5 g/dL 6.1-7.9 [facility] RBC Auto (Bld) [#/Vol]Ordere d By: Darien Florentino on 12-07-2021 RBC (Bld) [#/Vol] 4.48 10*6/uL 3.90-5.60 [facility] Serum or plasma alanine crawley otransferase measurement without P-5'-P (enzymatic activiOrdered By: Darien Florentino on 12-07-2021 ALT No additional P-5'-P [Catalytic activity/Vol] 74 U/L 1060 [facility] Serum or plasma albumin/glob ulin mass ratioOrdered By: Darien Florentino on 12-07-2021 Albumin/Globulin [Mass ratio] 1.4 {ratio} [facility] Serum or plasma alkaline laurita sphatase measurement (enzymatic activity/volume)Ordered By: Darien Florentino on 12-07-2021 ALP [Catalytic activity/Vol] 50 U/L 32-92 [facility] Serum or plasma aspartate am inotransferase measurement (enzymatic activity/volume)Ordered By: Darien Florentino on 12-07-2021 AST [Catalytic activity/Vol] 38 U/L 10-42 [facility] Serum or plasma calcium vida urement (mass/volume)Ordered By: Darien Florentino on 12-07-2021 Calcium [Mass/Vol] 10.3 mg/dL 8.2-10.2 [facility] Serum or plasma chloride jennifer surement (moles/volume)Ordered By: Darien Florentino on 12-07-2021 Chloride [Moles/Vol] 101 mmol/L 95-114 [facility] Serum or plasma glucose vida urement (mass/volume)Ordered By: Darien Florentino on 12-07-2021 Glucose [Mass/Vol] 178 mg/dL 70-100 [facility] Comment on above: ADA recommended refe rence range Random Glucose Reference Range is dependent on time and content of last meal. Glucose of more than 200 mg/dL in a nonstressed, ambulatory subject supports the diagnosis of Diabetes Mellitus. Serum or plasma potassium me asurement (moles/volume)Ordered By: Darien Florentino on 12-07-2021 Potassium [Moles/Vol] 4.6 mmol/L 3.5-5.1 [facility] Serum or plasma sodium measu rement (moles/volume)Ordered By: Darien Florentino on 12-07-2021 Sodium [Moles/Vol] 136 mmol/L 136-146 [facility] Serum or plasma total biliru bin measurement (mass/volume)Ordered By: Darien Florentino on 12-07-2021 Bilirubin [Mass/Vol] 0.5 mg/dL 0.3-1.2 [facility] Serum or plasma total carbon dioxide measurement (moles/volume)Ordered By: Darien Florentino on 12-07-2021 CO2 [Moles/Vol] 25.7 mmol/L 22.0-30.0 [facility] Serum or plasma urea nitroge n measurement (mass/volume)Ordered By: Darien Florentino on 12-07-2021 Urea nitrogen [Mass/Vol] 22 mg/dL 9- [facility] Troponin I.cardiac [Mass/vol ume] in Serum or Plasma by High sensitivity methodOrdered By: Darien Florentino on 12-07-2021 Troponin I.cardiac High sensitivity method [Mass/Vol] 5 pg/mL 0-[address] [facility] [address] CARDIAC SCORINGon CT CARDIAC SCORING Patient Name: GRETEL BAINS STUDY: CT CARDIAC SCORING; 10/22/2021 12:08 pm INDICATION: none E78.00: Hypercholesteremia. COMPARISON: None. ACCESSION NUMBER(S): [id number] ORDERING CLINICIAN: DELIA ULLOA TECHNIQUE: Using prospective ECG gating, CT scan of the coronary arteries was performed without intravenous contrast. Coronary calcium scoring was performed according to the method of Agatston. FINDINGS: The score and distribution of calcium in the coronary arteries is as follows: LM 0 LAD 130.37 LCx 87.16 RCA 102.54 Total 320.07 The heart size is normal and there is no pericardial effusion. The chest vasculature is unremarkable.There is no significant mediastinal or hilar adenopathy. The visualized lungs are clear. The visualized upper abdominal contents are within normal limits. The bony structures are intact. IMPRESSION: Coronary artery calcium score of 320.07 Coronary artery calcium scoring may be helpful in predicting the risk for future coronary heart disease events. According to the [employer] [employer] Clinical Expert Consensus Task Force, such testing provides important prognostic information in patients with more than one coronary heart disease risk factor. The coronary artery calcium score correlates with the annual risk of a non-fatal myocardial infarction or coronary heart disease . Coronary artery score Annual Risk 0-99 0.4% 100-399 1.3% >400 2.4% These three breakpoints correspond to lower, intermediate and high risk states for future coronary events. Such information should be used, along with appropriate clinical judgment, to make decisions regarding the intensity of risk factor management strategies to treat blood lipids and to modify other non-lipid coronary risk factors. Reference: Amite P et al. Circulation. 2007; 115:402-426 Electronically signed by: YASMANI RYDER MD Normal [facility] CT Cardiac Scoringon CT Cardiac Scoring Normal [facility] Work Phone: Office Visit (Internal Medic ine)on 07-20-2021 Follow-up visit Diagnoses/Problems Assessed Hypercholesteremia (272.0) (E78.00) Type 2 diabetes mellitus (250.00) (E11.9) Orders HTN (hypertension) Continue: Lisinopril 10 MG Oral Tablet; Take 1 tablet daily Rx By: Delia Ulloa; Dispense: 0 Days ; #:90 Tablet; Refill: 3;For: HTN (hypertension); YADI = N; Verified Transmission to [facility] 72182; Last Updated By: Nakia Buckley; 07/20/2021 8:55:[address] Cardiac Scoring; Status:Hold For - Scheduling; Requested for:20Jul2021; Perform:[facility] Radiology Services Imaging; Due:18Oct2021;Ordered ; For:Hypercholesteremi a; Ordered By:Delia Ulloa; Patient taking Metformin or Derivatives? : Yes Radiologist to Determine Optimal Study : Y What are the patient's signs and symptoms? : none Type 2 diabetes mellitus Continue: Basaglar KwikPen 100 UNIT/ML Subcutaneous Solution Pen-injector; INJECT 15 UNIT Daily Rx By: Delia Ulloa; Dispense: 90 Days ; #:1 X 5 x 3 ML Pen; Refill: 3;For: Type 2 diabetes mellitus; YADI = N; Print Rx; Last Updated By: Nakia Buckley; 07/20/2021 8:55:03 AM Continue: BD Pen Needle Sadaf U/F 32G X 4 MM; uses 1 daily Rx By: Delia Ulloa; Dispense: 0 Days ; #:1 X 100 Unit Box; Refill: 3;For: Type 2 diabetes mellitus; YADI = N; Verified Transmission to [facility] 75[facility]; Last Updated By: Nakia Buckley; 07/20/2021 8:55:03 AM Continue: metFORMIN HCl ER 500 MG Oral Tablet Extended Release 24 Hour; TAKE 1 TABLET 3 times daily Rx By: Delia Ulloa; Dispense: 90 Days ; #:270 Tablet; Refill: 3;For: Type 2 diabetes mellitus; YADI = N; Verified Transmission to [facility] 62684; Last Updated By: Nakia Buckley; 07/20/2021 8:55:03 AM Continue: OneTouch Delica Plus [id number]; Use 3 times daily as directed Rx By: Delia Ulloa; Dispense: 0 Days ; #:3 X 100 Unit Box; Refill: 3;For: Type 2 diabetes mellitus; YADI = N; Print Rx; Msg to Pharmacy: e11.9 on insulin; Last Updated By: Nakia Buckley; 07/20/2021 8:55:03 AM Continue: OneTouch Ultra In Vitro Strip; USE TO TEST BLOOD GLUCOSE LEVELS 3 TIMES A DAY Rx By: Delia Ulloa; Dispense: 0 Days ; #:1 X 100 Strip Box; Refill: 5;For: Type 2 diabetes mellitus; YADI = N; Print Rx; Msg to Pharmacy: e11.9 on insulin; Last Updated By: Nakia Buckley; 07/20/2021 8:55:03 AM Continue: Repaglinide 2 MG Oral Tablet; TAKE 1 TABLET BY MOUTH THREE TIMES DAILY Rx By: Delia Ulloa; Dispense: 90 Days ; #:270 Tablet; Refill: 3;For: Type 2 diabetes mellitus; YADI = N; Verified Transmission to [facility] 46190; Last Updated By: Nakia Buckley; 07/20/2021 8:55:03 AM Patient Discussion/Summary follow 5 months order cologuard at follow up cor art calcium score same meds Provider Impressions dm type 2 ,ok control bp ok.. likely better at home declines lipid lowering rx citing med intolerances Chief Complaint here for dm/ bp followup History of Present Illnessuri from 2020 cleared up wt. up some hgm bid checks ..trending better lately no sob/ no chest pains agent 12 basag u / plus orals no hypos keeps up eye care overall feels fine he again declines going on lipid lowering rx ...even the new bempedoic acid Review of Systems gen: feels at baseline, usual energy level, no fever. eyes: vision stable. card: no chest pains no shortness of breath Pulm: no cough . GI appetite normal . no nausea or diarrhea neuro: no new headaches. no focal weakness . All other pertinent body systems discussed in HPI. Active Problems Problems Body mass index (BMI) of 31.0 to 31.9 in adult (V85.31) (Z68.31) Cough (786.2) (R05.9) Elevated PSA (790.93) (R97.20) Encounter for immunization (V03.89) (Z23) Encounter for prostate cancer screening (V76.44) (Z12.5) HTN (hypertension) (401.9) (I10) Hypercholesteremia (272.0) (E78.00) Medicare annual wellness visit, initial (V70.0) (Z00.00) Rhinitis, chronic (472.0) (J31.0) Screening for colorectal cancer (V76.51,V76.41) (Z12.11,Z12.12) Type 2 diabetes mellitus (250.00) (E11.9) Social History Problems Currently working Never smoker No caffeine use Non-smoker (V49.89) (Z78.9) Occasional alcohol use Single Allergies Medication Pioglitazone HCl TABS Recorded By: Delia Ulloa; 07/20/2018 9:13:49 AM [facility] Recorded By: Delia Ulloa; 10/26/2013 1:04:52 PM Tradjenta TABS Recorded By: Delia Ulloa; 04/22/2014 9:44:40 AM Welchol Recorded By: Delia Ulloa; 03/23/2018 10:18:16 AM Zetia TABS Recorded By: Delia Ulloa; 07/25/2017 9:02:00 AM Current Meds Medication NameInstruction Basaglar KwikPen 100 UNIT/ML Subcutaneous Solution Pen-injectorINJECT 15 UNIT Daily BD Pen Needle Sadaf U/F 32G X 4 MMuses 1 daily Lisinopril 10 MG Oral TabletTake 1 tablet daily metFORMIN HCl ER 500 MG Oral Tablet Extended Release 24 HourTAKE 1 TABLET 3 times daily OneTouch Delica Plus [id number] 3 times daily as directed OneTouch Ultra In Vitro StripUSE TO TEST BLOOD GLUCOSE LEVELS 3 TIMES A DAY (more content not included)... Normal trend.ly BASIC METABOLIC PANELon 12-2 Anion gap [Moles/Vol] 14 mmol/L Normal 10 - 20 [facility] Comment on above: Performed By: #### B MP #### [facility] [address] [place] [address] Calcium [Mass/Vol] 9.9 mg/dL Normal 8.6 - 10.6 [facility] Comment on above: Performed By: #### B MP #### [facility] [address] [place] [address] Chloride [Moles/Vol] 101 mmol/L Normal 98 - 107 [facility] Comment on above: Performed By: #### B MP #### [facility] [address] [place] [address] Creatinine [Mass/Vol] 1.25 mg/dL Normal 0.50 - 1.30 [facility] Comment on above: Performed By: #### B MP #### [facility] [address] [place] [address] GFR- AM. 70 mL/min/1.73m2 Normal >60 [facility] Comment on above: Result Comment: CALC ULATIONS OF ESTIMATED GFR ARE PERFORMED USING THE MDRD STUDY EQUATION FOR THE IDMS-TRACEABLE CREATININE METHODS. CLIN CHEM 2007;53:766-72 Performed By: #### B MP #### [facility] [address] [place] [address] GFR-NON AM. 58 mL/min/1.73m2 Abnormal >60 [facility] Comment on above: Performed By: #### B MP #### [facility] [address] [place] [address] Glucose [Mass/Vol] 186 mg/dL High 74 - 99 [facility] Comment on above: Performed By: #### B MP #### [facility] [address] [place] [address] HCO3 (Bld) [Moles/Vol] 28 mmol/L Normal 21 - 32 [facility] Comment on above: Performed By: #### B MP #### [facility] [address] [place] [address] Potassium [Moles/Vol] 4.8 mmol/L Normal 3.5 - 5.3 [facility] Comment on above: Performed By: #### B MP #### [facility] [address] [place] [address] Sodium [Moles/Vol] 138 mmol/L Normal 136 - 145 [facility] Comment on above: Performed By: #### B MP #### [facility] [address] [place] [address] Urea nitrogen [Mass/Vol] 21 mg/dL Normal 6 - 23 [facility] Comment on above: Performed By: #### B MP #### [facility] [id number] [place] [address] HEMOGLOBIN A1Con 06-25-2021 Glucose [Mass/Vol] 163 mg/dL Normal [facility] Comment on above: Performed By: #### H BA1E #### [facility] [address] [place] [address] HbA1c (Bld) [Mass fraction] 7.3 % Abnormal [facility] Comment on above: Result Comment: Diag nosis of Diabetes-Adults Non-Diabetic: < or = 5.6% Increased risk for developing diabetes: 5.7-6.4% Diagnostic of diabetes: > or = 6.5% . Monitoring of Diabetes Age (y) Therapeutic Goal (%) Adults: >18 <7.0 Pediatrics: 13-18 <7.5 7-12 <8.0 0- 6 7.5-8.5 [place] [employer]. Diabetes Care 33(S1), Jun 2009. Performed By: #### H BA1E #### [facility] [address] [place] [address] Hemoglobin A1Con 06-25-2021 Glucose [Mass/Vol] 163 mg/dL [facility] Work Phone: HbA1c (Bld) [Mass fraction] 7.3 % Abnormal [facility] Work Phone: Comment on above: Diagnosis of Diabete s-Adults Non-Diabetic: < or = 5.6% Increased risk for developing diabetes: 5.7-6.4% Diagnostic of diabetes: > or = 6.5%. Monitoring of Diabetes Age (y) Therapeutic Goal (%) Adults: >18 <7.0 Pediatrics: 13-18 <7.5 7-12 <8.0 0- 6 7.5-8.5 [place] [employer]. Diabetes Care 33(S1), Jun 2009. LIPID PANEL (CORONARY RISK 2 )on 06-25-2021 Cholesterol [Mass/Vol] 218 mg/dL High 0 - 199 [facility] Comment on above: Result Comment: . AGE DESIRABLE BORDERLINE HIGH HIGH 0-19 Y 0 - 169 170 - 199 >/= 200 20-24 Y 0 - 189 190 - 224 >/= 225 >24 Y 0 - 199 200 - 239 >/= 240 All ranges are based on fasting samples. Specific therapeutic targets will vary based on patient-specific cardiac risk. . Pediatric guidelines reference:Pediatrics 2011, 128(S5). Adult guidelines reference: NCEP ATPIII Guidelines, DARINEL 2001, 258:2486-97 . Venipuncture immediately after or during the administration of Metamizole may lead to falsely low results. Testing should be performed immediately prior to Metamizole dosing. Performed By: #### L IPID #### [facility] [address] [place] [address] Cholesterol in HDL [Mass/Vol] 28.6 mg/dL Abnormal [facility] Comment on above: Result Comment: . AGE VERY LOW LOW NORMAL HIGH 0-19 Y < 35 < 40 40-45 ---- 20-24 Y ---- < 40 >45 ---- >24 Y ---- < 40 40-60 >60 . Performed By: #### L IPID #### [facility] [address] [place] [address] Cholesterol in LDL [Mass/Vol] 140 mg/dL High 0 - 99 [facility] Comment on above: Result Comment: . NEAR BORD AGE DESIRABLE OPTIMAL HIGH HIGH VERY HIGH 0-19 Y 0 - 109 --- 110-129 >/= 130 ---- 20-24 Y 0 - 119 --- 120-159 >/= 160 ---- >24 Y 0 - 99 100-129 130-159 160-189 >/=190 . Performed By: #### L IPID #### [facility] [address] [place] [address] Cholesterol in VLDL [Mass/Vol] 49 mg/dL High 0 - 40 [facility] Comment on above: Performed By: #### L IPID #### [facility] [address] [place] [address] Cholesterol.total/Lisbeth sterol in HDL [Mass ratio] 7.6 {ratio} Abnormal [facility] Comment on above: Result Comment: REF VALUES DESIRABLE < 3.4 HIGH RISK > 5.0 Performed By: #### L IPID #### [facility] [address] [place] [address] NON-HDL CHOLESTEROL 189 mg/dL Normal [facility] Comment on above: Result Comment: AGE DESIRABLE BORDERLINE HIGH HIGH VERY HIGH 0-19 Y 0 - 119 120 - 144 >/= 145 >/= 160 20-24 Y 0 - 149 150 - 189 >/= 190 ---- >24 Y 30 MG/DL ABOVE LDL CHOLESTEROL GOAL . Performed By: #### L IPID #### [facility] [address] [place] [address] Triglyceride [Mass/Vol] 247 mg/dL High 0 - 149 [facility] Comment on above: Result Comment: . AGE DESIRABLE BORDERLINE HIGH HIGH VERY HIGH 0 D-90 D 19 - 174 ---- ---- ---- 91 D- 9 Y 0 - 74 75 - 99 >/= 100 ---- 10-19 Y 0 - 89 90 - 129 >/= 130 ---- 20-24 Y 0 - 114 115 - 149 >/= 150 ---- >24 Y 0 - 149 150 - 199 200- 499 >/= 500 . Venipuncture immediately after or during the administration of Metamizole may lead to falsely low results. Testing should be performed immediately prior to Metamizole dosing. Performed By: #### L IPID #### [facility] [address] [place] [address] Laboratory - Chemistry and C hemistry - challengeon 06-25-2021 Anion gap [Moles/Vol] 14 mmol/L 10 - 20 [facility] Work Phone: Calcium [Mass/Vol] 9.9 mg/dL 8.6 - 10.6 [facility] Work Phone: Chloride [Moles/Vol] 101 mmol/L 98 - 107 [facility] Work Phone: CO2 [Moles/Vol] 28 mmol/L 21 - 32 -[facility] Work Phone: Creatinine [Mass/Vol] 1.25 mg/dL See Below - [facility] Work Phone: Comment on above: Reference Range: 0.5 0 - 1.30 Glucose [Mass/Vol] 186 mg/dL above high threshold 74 - 99 -[facility] Work Phone: Potassium [Moles/Vol] 4.8 mmol/L 3.5 - 5.3 - [facility] Work Phone: Sodium [Moles/Vol] 138 mmol/L 136 - 145 -[facility] Work Phone: Urea nitrogen [Mass/Vol] 21 mg/dL 6 - 23 -[facility] Work Phone: Lipid Panelon 06-25-2021 Cholesterol [Mass/Vol] 218 mg/dL above hig h threshold 0 - 199 -[facility] Work Phone: Comment on above: . AGE DESIRABLE BORD FAITH HIGH HIGH 0-19 Y 0 - 169 170 - 199 >/= 200 20-24 Y 0 - 189 190 - 224 >/= 225 >24 Y 0 - 199 200 - 239 >/= 240 All ranges are based on fasting samples. Specific therapeutic targets will vary based on patient-specific cardiac risk.. Pediatric guidelines reference:Pediatrics 2011, 128(S5). Adult guidelines reference: NCEP ATPIII Guidelines, DARINEL 2001, 258:2486-97. Venipuncture immediately after or during the administration of Metamizole may lead to falsely low results. Testing should be performed immediately prior to Metamizole dosing. Cholesterol in HDL [Mass/Vol] 28.6 mg/dL Abnormal -[facility] Work Phone: Comment on above: . AGE VERY LOW LOW N ORMAL HIGH 0-19 Y < 35 < 40 40-45 ---- 20-24 Y ---- < 40 >45 ---- >24 Y ---- < 40 40-60 >60. Cholesterol in LDL [Mass/Vol] 140 mg/dL above high threshold 0 - 99 [employer] Phone: Comment on above: . NEAR BORD AGE PARTICIA RABLE OPTIMAL HIGH HIGH VERY HIGH 0-19 Y 0 - 109 --- 110-129 >/= 130 ---- 20-24 Y 0 - 119 --- 120-159 >/= 160 ---- >24 Y 0 - 99 100-129 130-159 160-189 >/=190. Cholesterol non HDL [Mass/Vol] 189 mg/dL [employer] Work Phone: Comment on above: AGE DESIRABLE BORDER LINE HIGH HIGH VERY HIGH 0-19 Y 0 - 119 120 - 144 >/= 145 >/= 160 20-24 Y 0 - 149 150 - 189 >/= 190 ---- >24 Y 30 MG/DL ABOVE LDL CHOLESTEROL GOAL. Cholesterol.total/Lisbeth sterol in HDL [Mass ratio] 7.6 {ratio} Abnormal [employer] Work Phone: Comment on above: REF VALUESDESIRABLE < 3.4HIGH RISK > 5.0 Triglyceride [Mass/Vol] 247 mg/dL above hi gh threshold 0 - 149 [employer] Phone: Comment on above: . AGE DESIRABLE BORD FAITH HIGH HIGH VERY HIGH 0 D-90 D 19 - 174 ---- ---- ----91 D- 9 Y 0 - 74 75 - 99 >/= 100 ---- 10-19 Y 0 - 89 90 - 129 >/= 130 ---- 20-24 Y 0 - 114 115 - 149 >/= 150 ---- >24 Y 0 - 149 150 - 199 200- 499 >/= 500. Venipuncture immediately after or during the administration of Metamizole may lead to falsely low results. Testing should be performed immediately prior to Metamizole dosing. Lipid Panel 49 mg/dL above high threshold 0 - 40 [employer] Work Phone: No Panel Informationon 06-25 70 {mL/min/1.73m2} >60 [facility] Work Phone: Comment on above: CALCULATIONS OF KHADAR MATED GFR ARE PERFORMED USING THE MDRD STUDY EQUATION FOR THE IDMS-TRACEABLE CREATININE METHODS. CLIN CHEM 2007;[id number] 58 {mL/min/1.73m2} Abnormal >60 [facility] Work Phone: PROSTATE SPEC.AG,SCREENon PROSTATE SPEC.AG,SCREEN 2.61 ng/mL Normal 0.00 - 4.00 [facility] Comment on above: Result Comment: The FDA requires that the method used for PSA assay be reported to the physician. Values obtained with different assay methods must not be used interchangeably. This test was performed at [facility] using the Siemens Atellica PSA method, which is a sandwich immunoassay using chemiluminescence for quantitation. The assay is approved for measurement of prostate-specific antigen (PSA) in serum and may be used in conjunction with a digital rectal examination in men 50 years and older as an aid in detection of prostate cancer. 0-Xvbks-krxbbdfdx inhibitors (e.g. Proscar, Finasteride, Avodart, Dutasteride and Michelle) for the treatment of BPH have been shown to lower PSA levels by an average of 50% after 6 months of treatment. Performed By: #### [facility] #### [facility] [id number] [place] [address] Prostate Spec.Ag, Screenon 1 08-26-2020 Prostate specific Ag [Mass/Vol] 2.61 ng/mL See Below [facility] Work Phone: Comment on above: Reference Range: 0.0 0 - 4.00The FDA requires that the method used for PSA assay be reported to the physician. Values obtained with different assay methods must not be used interchangeably. This test was performed at [facility] using the SiemensAtellica PSA method, which is a sandwich immunoassay using chemiluminescence for quantitation. The assay is approvedfor measurement of prostate-specific antigen (PSA) in serum and may be used in conjunction with a digital rectalexamination in men 50 years and older as an aid in detection of prostate cancer. 1-Ypkdg-ilhjhtxfd inhibitors (e.g. Proscar, Finasteride, Avodart, Dutasteride and Michelle) for the treatment of BPH have been shown to lower PSA levels by an average of 50% after 6 months of treatment. Blood Pressure Cuff Sizeon 0 03-07-2021 Tobacco use status CPHS b) No M [facility] [place] [address] DO Work Phone: Blood Pressure Cuff Size Adult [facility] 102 DO Work Phone: Blood Pressure Cuff Sizeon 0 03-01-2021 Blood Pressure Cuff Size Adult [facility] Work Phone: IO Hgb A1Con 03-01-2021 HbA1c (Bld) [Mass fraction] 6.8 % 4.4-6.4% [facility] Work Phone: IO glucose, blood, finger st ick via hand held monitoron 03-01-2021 Glucose [Mass/Vol] 121 mg/dL [facility] Work Phone: Vital Signs Date Time Vital Sign Value Performing Clinician Facility 07-14-2023 08:45-0500 Body height 177.8 cm Светлана Mast Other [facility] Other 07-14-2023 08:45-0500 Body mass index (BMI) [Ratio] 29.97 kg/m2 Светлана Mast Other [facility] Other 07-14-2023 08:45-0500 Body weight 94.76 kg Светлана Mast Other [facility] Other 07-14-2023 08:45-0500 Diastolic blood pressure 72 mm[Hg] Светлана Mast Other [facility] Other 07-14-2023 08:45-0500 Respiratory rate 18 /min Светлана Mast Other [facility] Other 07-14-2023 08:45-0500 SaO2% (BldA) [Mass fraction] 96 % Светлана Mast Other [facility] Other 07-14-2023 08:45-0500 Systolic blood pressure 128 mm[Hg] Светлана Mast Other [facility] Other 06-04-2023 13:29-0500 Blood Pressure Location [facility] 06-04-2023 13:29-0500 Diastolic blood pressure 83 mm[Hg] Devendra MINER [facility] 06-04-2023 13:29-0500 Heart rate 87 /min Devendra [employer] [facility] 06-04-2023 13:29-0500 Respiratory rate 16 /min Devendra MINER [facility] 06-04-2023 13:29-0500 Systolic blood pressure 135 mm[Hg] Devendra MINER [facility] 06-02-2023 08:45-0500 Body height 177.8 cm Светлана Mast Other [facility] Other 06-02-2023 08:45-0500 Body mass index (BMI) [Ratio] 29.02 kg/m2 Светлана Mast Other [facility] Other 06-02-2023 08:45-0500 Body temperature 96.5 [degF] Светлана Mast Other [facility] Other 06-02-2023 08:45-0500 Body weight 91.76 kg Светлана Mast Other [facility] Other 06-02-2023 08:45-0500 Diastolic blood pressure 84 mm[Hg] Светлана Mast Other [facility] Other 06-02-2023 08:45-0500 SaO2% (BldA) [Mass fraction] 98 % Светлана Mast Other [facility] Other 06-02-2023 08:45-0500 Systolic blood pressure 124 mm[Hg] Светлана Mast Other [facility] Other 02-27-2023 09:00-0400 Body height 177.8 cm Светлана Mast Other [facility] Other 02-27-2023 09:00-0400 Body mass index (BMI) [Ratio] 29.02 kg/m2 Светлана Mast Other [facility] Other 02-27-2023 09:00-0400 Body temperature 96.9 [degF] Светлана Mast Other [facility] Other 02-27-2023 09:00-0400 Body weight 91.76 kg Светлана Mast Other [facility] Other 02-27-2023 09:00-0400 Diastolic blood pressure 72 mm[Hg] Светлана Mast Other [facility] Other 02-27-2023 09:00-0400 SaO2% (BldA) [Mass fraction] 97 % Светлана Mast Other [facility] Other 02-27-2023 09:00-0400 Systolic blood pressure 130 mm[Hg] Светлана Mast Other [employer] Other 01-27-2023 09:15-0400 Body height 177.8 cm Светлана Mast Other [facility] Other 01-27-2023 09:15-0400 Body mass index (BMI) [Ratio] 28.89 kg/m2 Светлана Mast Other [employer] Other 01-27-2023 09:15-0400 Body temperature 96.4 [degF] Светлана Mast Other [facility] Other 01-27-2023 09:15-0400 Body weight 91.36 kg Светлана Mast Other [facility] Other 01-27-2023 09:15-0400 Diastolic blood pressure 80 mm[Hg] Светлана Mast Other [facility] Other 01-27-2023 09:15-0400 SaO2% (BldA) [Mass fraction] 98 % Светлана Mast Other [employer] Other 01-27-2023 09:15-0400 Systolic blood pressure 134 mm[Hg] Светлана Mast Other [employer] Other 06-14-2022 09:03-0500 Body height 172.72 cm Delia Ulloa Work Phone: [facility] Work Phone: 06-14-2022 09:03-0500 Body mass index (BMI) [Ratio] 31.78 kg/m2 Delia Ulloa Work Phone: [employer] Work Phone: 06-14-2022 09:03-0500 Body surface area Derived from formula 2.08 m2 Delia Ulloa Work Phone: [employer] Work Phone: 06-14-2022 09:03-0500 Body temperature 97.4 [degF] Delia Ulloa Work Phone: [employer] Work Phone: 06-14-2022 09:03-0500 Body weight 94.8 kg Delia Ulloa Work Phone: [employer] Work Phone: 06-14-2022 09:03-0500 Diastolic blood pressure 62 mm[Hg] Delia Ulloa Work Phone: [employer] Work Phone: 06-14-2022 09:03-0500 Heart rate 73 /min Delia Ulloa Work Phone: [employer] Work Phone: 06-14-2022 09:03-0500 SaO2% (BldA) [Mass fraction] 97 % Delia Ulloa Work Phone: [employer] Work Phone: 06-14-2022 09:03-0500 Systolic blood pressure 120 mm[Hg] Delia Ulloa Work Phone: [employer] Work Phone: 01-18-2022 10:54-0400 Body height 172.72 cm Delia Ulloa Work Phone: [employer] Work Phone: 01-18-2022 10:54-0400 Body mass index (BMI) [Ratio] 30.87 kg/m2 Delia Ulloa Work Phone: [employer] [facility] Work Phone: 01-18-2022 10:54-0400 Body surface area Derived from formula 2.06 m2 Delia Tomi Mindy Work Phone: [employer] [facility] Work Phone: 01-18-2022 10:54-0400 Body temperature 97.1 [degF] Delia Ulloa Work Phone: [employer] [facility] Work Phone: 01-18-2022 10:54-0400 Body weight 92.08 kg Delia Tomi Mindy Work Phone: [employer] [facility] Work Phone: 01-18-2022 10:54-0400 Diastolic blood pressure 78 mm[Hg] Delia Ulloa Work Phone: [employer] [facility] Work Phone: 01-18-2022 10:54-0400 Heart rate 78 /min Delia Ulloa Work Phone: [employer] [facility] Work Phone: 01-18-2022 10:54-0400 SaO2% (BldA) [Mass fraction] 98 % Delia Ulloa Work Phone: [employer] [facility] Work Phone: 01-18-2022 10:54-0400 Systolic blood pressure 120 mm[Hg] Delia Tomi Mindy Work Phone: [employer] [facility] Work Phone: 12-07-2021 09:37-0400 Body height 175.26 cm [facility] 12-07-2021 09:37-0400 Body mass index (BMI) [Ratio] 30.9 kg/m2 [facility] 12-07-2021 09:37-0400 Body temperature 98.2 [degF] [facility] 12-07-2021 09:37-0400 Body weight 95 kg [facility] 12-07-2021 09:37-0400 Diastolic blood pressure 90 mm[Hg] [facility] 12-07-2021 09:37-0400 Heart rate 57 /min [facility] 12-07-2021 09:37-0400 Respiratory rate 18 /min [facility] 12-07-2021 09:37-0400 SaO2% (BldA) [Mass fraction] 98 % [facility] 12-07-2021 09:37-0400 Systolic blood pressure 193 mm[Hg] [facility] 03-07-2021 08:35-0400 Body height 172.72 cm Delia Ulloa Work Phone: [facility] 102 DO Work Phone: 03-07-2021 08:35-0400 Body mass index (BMI) [Ratio] 31.47 kg/m2 Delia Ulloa Work Phone: [facility] 102 DO Work Phone: 03-07-2021 08:35-0400 Body surface area Derived from formula 2.07 m2 Delia Ulloa Work Phone: [facility] 102 DO Work Phone: 03-07-2021 08:35-0400 Body temperature 96.2 [degF] Delia Ulloa Work Phone: [facility] 102 DO Work Phone: 03-07-2021 08:35-0400 Body weight 93.9 kg Delia Ulloa Work Phone: [place] [address] DO Work Phone: 03-07-2021 08:35-0400 Diastolic blood pressure 60 mm[Hg] Delia Ulloa Work Phone: [place] [address] DO Work Phone: 03-07-2021 08:35-0400 Heart rate 63 /min Delia Ulloa Work Phone: [place] [address] DO Work Phone: 03-07-2021 08:35-0400 Respiratory rate 16 /min Delia Ulloa Work Phone: [place] [address] DO Work Phone: 03-07-2021 08:35-0400 SaO2% (BldA) [Mass fraction] 98 % Delia Ulloa Work Phone: [place] [address] DO Work Phone: 03-07-2021 08:35-0400 Systolic blood pressure 140 mm[Hg] Delia Ulloa Work Phone: [facility] 102 DO Work Phone: 03-01-2021 09:57-0400 Body height 172.72 cm Delia Ulloa Work Phone: [facility] Work Phone: 03-01-2021 09:57-0400 Body mass index (BMI) [Ratio] 30.87 kg/m2 Delia Ulloa Work Phone: [facility] Work Phone: 03-01-2021 09:57-0400 Body surface area Derived from formula 2.06 m2 Delia Ulloa Work Phone: [facility] Work Phone: 03-01-2021 09:57-0400 Body temperature 97.1 [degF] Delia Ulloa Work Phone: [employer] [facility] Work Phone: 03-01-2021 09:57-0400 Body weight 92.08 kg Delia Ulloa Work Phone: [employer] [facility] Work Phone: 03-01-2021 09:57-0400 Diastolic blood pressure 80 mm[Hg] Delia Ulloa Work Phone: [employer] [facility] Work Phone: 03-01-2021 09:57-0400 Heart rate 73 /min Delia Ulloa Work Phone: [employer] [facility] Work Phone: 03-01-2021 09:57-0400 SaO2% (BldA) [Mass fraction] 99 % Delia Ulloa Work Phone: [employer] [facility] Work Phone: 03-01-2021 09:57-0400 Systolic blood pressure 150 mm[Hg] Delia Ulloa Work Phone: [employer] [facility] Work Phone: 07-15-2019 11:00-0500 BMI (Body Mass Index) 32.16 kg/m2 Delia Ulloa [facility] Work Phone: 07-15-2019 11:00-0500 Body Temperature 96.7 [degF] Delia Ulloa [employer] [facility] Work Phone: Comment on above: Method: Temporal 07-15-2019 11:00-0500 Body weight 95.94 kg Delia Ulloa [facility] Work Phone: 07-15-2019 11:00-0500 BP Diastolic 90 mm[Hg] Delia Ulloa [facility] Work Phone: Comment on above: Location: LUE; Position: Sitting 07-15-2019 11:00-0500 BP Systolic 150 mm[Hg] Delia Ulloa [facility] Work Phone: Comment on above: Location: LUE; Position: Sitting 07-15-2019 11:00-0500 BSA (Body Surface Area) 2.09 m2 Delia Ulloa [facility] Work Phone: 07-15-2019 11:00-0500 Height 172.72 cm Delia Ulloa [facility] Work Phone: 07-15-2019 11:00-0500 Pulse (Heart Rate) 87 /min Delia Ulloa [facility] [employer] [employer] Work Phone: 07-15-2019 11:00-0500 Pulse Oximetry 98 % Delia Ulloa [facility] [employer] Work Phone: Comment on above: Source: RA Encounters Encounter Date Encounter Type Care Provider Facility Start: 11-05-2023 ambulatory Devendra R MINER Facili ty:[facility] Start: 10-20-2023 ambulatory Devendra R MINER Facili ty:[facility] Start: 10-16-2023 ambulatory Devendra R MINER Facili ty:[facility] [place] Start: 10-01-2023 ambulatory Devendra R MINER Facili ty:[facility] [place] Start: 09-15-2023 ambulatory Devendra R MINER Facili ty:[facility] [place] Start: 09-11-2023 ambulatory Devendra R MINER Facili ty:[id number] Start: 07-14-2023 End: 07-14-2023 ambulatory Светлана Mast Other [facility] Other Start: 07-14-2023 Office outpatient vi sit 25 minutes Светлана Mast [facility] [place] Start: 07-01-2023 End: 07-02-2023 ambulatory Devendra MINER Facility:[facility] Start: 07-01-2023 End: 07-01-2023 Patient encounter procedure Devendra MINER [facility] [place] Start: 06-04-2023 End: 06-05-2023 ambulatory Devendra MINER Facility:[facility] Start: 06-04-2023 End: 06-04-2023 Patient encounter procedure Devendra MINER [facility] [place] Start: 06-02-2023 End: 06-02-2023 ambulatory Светлана Mast Other [facility] Other Start: 06-02-2023 Office outpatient vi sit 25 minutes Светлана Mast [facility] Start: 03-26-2023 End: 03-26-2023 ambulatory Светлана Mast Other [facility] Other Start: 03-26-2023 Telephone encounter Светлана Mast [facility] Start: 03-24-2023 End: 03-24-2023 ambulatory Светлана Mast Other [facility] Other Start: 03-24-2023 Telephone encounter Светлана Mast [facility] Start: 03-04-2023 ambulatory Devendra MINER Facility :[facility] Start: 02-27-2023 End: 02-27-2023 ambulatory Светлана Mast Other [facility] Other Start: 02-27-2023 Office outpatient vi sit 25 minutes Светлана Mast [facility] Start: 02-17-2023 End: 02-17-2023 ambulatory Светлана Mast Facility:[facility] Start: 02-17-2023 End: 02-17-2023 ambulatory DO Светлана Mast Work Phone: [facility] Work Phone: Start: 02-17-2023 End: 02-17-2023 Patient encounter procedure DO Светлана Mast Work Phone: [facility] [address] Work Phone: Start: 02-03-2023 End: 02-03-2023 ambulatory Светлана Mast Facility:[facility] Start: 02-03-2023 End: 02-03-2023 ambulatory DO Светлана Mast Work Phone: [facility] Work Phone: Start: 02-03-2023 End: 02-03-2023 Patient encounter procedure DO Светлана Mast Work Phone: [facility] Start: 01-27-2023 End: 01-27-2023 ambulatory Светлана Mast Other [facility] [employer] Other Start: 01-27-2023 Office outpatient ne w 45 minutes Светлана Mast [facility] Start: 10-08-2022 End: 10-08-2022 ambulatory CESARIO YOON MD [facility] Start: 09-10-2022 ambulatory VANGIE DORADO MD Facility: [facility] Start: 08-23-2022 AUDIT Delia Ulloa Work Phone: [facility] Work Phone: Start: 07-06-2022 AUDIT Delia Ulloa Work Phone: [facility] Work Phone: Start: 06-14-2022 Office outpatient vi sit 15 minutes Delia Ulloa Work Phone: [facility] Work Phone: Start: 06-14-2022 ambulatory DELIA ULLOA Facil [id number] Start: 03-12-2022 AUDIT Delia E Nekl Work Phone: [facility] Work Phone: Start: 02-09-2022 AUDIT Delia E Nekl Work Phone: [facility] Work Phone: Start: 02-08-2022 End: 02-09-2022 ambulatory GRETEL MAJANO MD [facility] Start: 01-19-2022 Chart Update Delia E Nekl Work Phone: [facility] Work Phone: Start: 01-18-2022 Office outpatient vi sit 15 minutes Delia Tomi Nekl Work Phone: [facility] Work Phone: Start: 01-18-2022 ambulatory DELIA LAKHWINDER NEKL Facil [id number] Start: 12-12-2021 Telephone encounter Delia Krishna Nekl Work Phone: [facility] [facility] Work Phone: Start: 12-07-2021 End: 12-07-2021 Emergency department patient visit [facility] Start: 11-14-2021 AUDIT Delia Krishna Nekl Work Phone: [facility] Work Phone: Start: 11-06-2021 AUDIT Delia E Nekl Work Phone: [facility] Work Phone: Start: 11-03-2021 AUDIT Delia E Nekl Work Phone: [facility] Work Phone: Start: 10-22-2021 ambulatory DELIA LAKHWINDER NEKL Facil [id number] Start: 07-20-2021 ambulatory DELIA LAKHWINDER NEKL Facil [id number] Start: 06-25-2021 AUDIT Delia Tomi Nekl Work Phone: [facility] Work Phone: Start: 06-20-2021 Telephone encounter Delia E Nekl Work Phone: [facility] Work Phone: Start: 06-13-2021 AUDIT Delia Tomi [facility]ekl [facility] Work Phone: Start: 03-07-2021 Patient encounter procedure Delia Tomi Nekl Work Phone: [facility] [place] [id number] DO Work Phone: Start: 03-01-2021 Office outpatient vi sit 15 minutes Delia Tomi Nekl Work Phone: [facility] Work Phone: Start: 03-01-2021 Patient encounter procedure Delia Tomi Nekl [facility] Work Phone: Start: 01-22-2021 AUDIT Delia Tomi Nekl [facility]: [facility] Work Phone: Start: 12-09-2019 Patient encounter procedure Delia Nekl [facility] Work Phone: Start: 07-15-2019 Patient encounter procedure [facility]l [facility] Work Phone: Start: 02-16-2019 Patient encounter procedure Delia Nekl [facility] Work Phone: Start: 10-20-2018 Patient encounter procedure Delia Nekl [facility] Work Phone: Start: 07-20-2018 Patient encounter procedure Delia Nekl [facility] Work Phone: Start: 03-23-2018 Patient encounter procedure Delia Ulloa -[facility] Work Phone: Start: 11-20-2017 Patient encounter procedure Delia Ulloa -[facility] Work Phone: Start: 07-25-2017 Patient encounter procedure Delia Ulloa -[facility] Work Phone: Patient encounter procedure Delia Ulloa Work Phone: [facility] 102 DO Work Phone: Procedures Date Procedure Procedure Detail Performing Clinician Start: 07-01-2023 Transurethral cystoscopy Devendra MINER Start: 02-17-2023 CT of abdomen and pe lvis without contrast DO Светлана Mast Work Phone: Start: 12-07-2021 Plain chest X-ray Start: 12-07-2021 CT cervical spine wi thout contrast Start: 12-07-2021 CT of head without contrast Start: 07-15-2019 Basic metabolic 1998 panel - Serum or Plasma Deliaakhil Ulloa Start: 07-15-2019 Hemoglobin glycosylated a1c Delia Mindy Start: 07-15-2019 Lipid panel Delia saldana Procedure on knee Devendra SESAY Plan of Treatment Date Care Activity Detail Author Start: 12-16-2022 FUV, Provider: Delia Ulloa, Status: Pen, Time: 8:45 AM FUV, Provider: Delia Ulloa, Status: Pen, Time: 8:45 AM [facility] Work Phone: Start: 06-14-2022 FUV, Provider: Delia Ulloa, Status: Pen, Time: 9:00 AM FUV, Provider: Delia Ulloa, Status: Pen, Time: 9:00 AM [facility] Work Phone: Start: 01-18-2022 FUV, Provider: Delia Ulloa, Status: Pen, Time: 10:45 AM FUV, Provider: Delia Ulloa, Status: Pen, Time: 10:45 AM [facility] Work Phone: Start: 07-02-2021 FUV, Provider: Delia Ulloa, Status: Pen, Time: 8:30 AM FUV, Provider: Delia Ulloa, Status: Pen, Time: 8:30 AM [facility] Work Phone: Start: 03-07-2021 MCRWELCOME, Provider : Alie Gaytan, Status: Pen, Time: 8:00 AM MCRWELCOME, Provider: Alie Gaytan, Status: Pen, Time: 8:00 AM [facility] Work Phone: Start: 03-01-2021 FUV, Provider: Delia Ulloa, Status: Pen, Time: 9:45 AM FUV, Provider: Delia Ulloa, Status: Pen, Time: 9:45 AM [facility] Work Phone: Patient Education Paresthesia (DC) [facility] Work Phone: Patient referral [facility] Work Phone: Immunizations Immunization Date Immunization Notes Care Provider Yohan kirk 04-11-2023 Flu Shot - Documentation Purposes Only Светлана Mast Other [facility] [employer] Other 04-11-2023 influenza virus vaccine, unspecified formulation Devendranilson MINER [facility] 03-21-2023 Prevnar 20 Светлана Mast Other [facility] 12-17-2022 tetanus toxoid, redu brittany diphtheria toxoid, and acellular pertussis vaccine, adsorbed Светлана Mast Other [facility] 06-02-2022 Moderna COVID-19 Biv al Booster 50 MCG/0.5ML Intramuscular Suspension Delia E Nekl Work Phone: [facility] 04-19-2022 zoster vaccine recombinant Delia E Nekl Work Phone: [facility] 04-08-2022 Fluzone High-Dose Quadrivalent 0.7 ML Intramuscular Suspension Prefilled Syringe Delia E Nekl Work Phone: [employer] [facility] Work Phone: 04-08-2022 influenza virus vaccine, unspecified formulation Ur[employer] [facility] 01-11-2022 zoster vaccine recombinant Delia E Nekl Work Phone: [facility] 05-21-2021 Moderna COVID-19 Vaccine 100 MCG/0.5ML Intramuscular Suspension Delia E Nekl Work Phone: [facility] 03-01-2021 influenza virus vaccine, unspecified formulation Devendra [employer] [facility] 03-01-2021 influenza, high dose seasonal, preservative-free; Translations: [Fluzone High-Dose 0.5 ML Intramuscular Suspension Prefilled Syringe] Delia E Nekl Work Phone: [employer] [facility] Work Phone: Comment on above: Series: 08-01-2020 Moderna COVID-19 Vaccine 100 MCG/0.5ML Intramuscular Suspension Delia E Nekl Work Phone: [facility] 07-04-2020 Moderna COVID-19 Vaccine 100 MCG/0.5ML Intramuscular Suspension Delia E Nekl Work Phone: [facility] 03-09-2020 influenza virus vaccine, unspecified formulation Devendra MINER [facility] 03-09-2020 influenza, injectabl e, quadrivalent, preservative free Delia E Nekl Work Phone: [facility] 102 DO Work Phone: 04-22-2019 influenza virus vaccine, unspecified formulation Devendra MINER [facility] 04-22-2019 Influenza, injectabl e, Madin Vandana Canine Kidney, quadrivalent with preservative Delia E Nekl Work Phone: [facility] 102 DO Work Phone: 04-10-2018 influenza virus vaccine, unspecified formulation Devendra MINER [facility] 04-10-2018 influenza, injectabl e, quadrivalent, preservative free Delia E Nekl Work Phone: [facility] 102 DO Work Phone: Payers Date Payer Category Payer Self-pay [id number] 2020 Medicare [id number] 1959 Private Health Insurance 101 [id number] 1959 Unknown [id number] 1955 Unknown [id number] 2.16. [id number] 1955 Unknown [id number] .. [id number] 1955 Unknown [id number] 2.16. [id number] 1955 Unknown [id number] 2.16. [id number] 1955 Unknown [id number] 2.16.8 40.1.298384.3.579.2.159 1955 Unknown [id number] 2.16.8 40.1.903544.3.579.2.598 1955 Unknown [id number] 2.16.8 40.1.533414.3.579.2.598 1955 Unknown [id number] 2.16.8 40.1.020593.3.579.2.727 1955 Unknown [id number] 2.16.8 40.1.025159.3.579.2.727 1955 Unknown [id number] 2.16.8 40.1.892173.3.579.2.727 1955 Unknown [id number] 2.16.8 40.1.914260.3.579.2.727 1955 Unknown [id number] 2.16.8 40.1.563772.3.579.2.727 1955 Unknown [id number] 2.16.8 40.1.493586.3.579.2.727 1955 Unknown [id number] 2.16.8 40.1.355328.3.579.2.727 1955 Unknown [id number] 2.16.8 40.1.489695.3.579.2.727 Unknown Unknown [id number] Unknown [id number] 2.16.8 40.1.086764.3.579.2.531 Unknown [id number] 2.16.8 [id number] Social History Date Type Detail Facility Currently working Currently working [facility] Work Phone: Start: 12-07-2021 Tobacco smoking status NHIS Smoker (finding) [facility] Start: 1955 Sex Assigned At Male F [facility] Sex Assigned At [facility] Start: 06-04-2023 End: 07-01-2023 Tobacco smoking status Never smoked tobacco (finding) [facility] Tobacco smoking status Never [facility] NEGATED: Highlighted row - - [facility] Work Phone: Medical Equipment Procedure Code Equipment Code Equipment Origin al Text Equipment Identifier Dates BD Pen Needle Na no U/F 32G X 4 MM uses 1 daily Quantity: 1 Refills: 3 Delia Ulloa MD Start : 21-Jan-2019 Active 100 [address] Box Start: 01-21-2019 BD Pen Needle Na no U/F 32G X 4 MM uses 1 daily Quantity: 1 Refills: 3 Delia Ulloa MD Start : 21-Jan-2019 Active 100 Unit Box Start: 01-21-2019 Functional Status Date Assessment Result Facility 07-01-2023 Functional Status N/A [facility] 06-04-2023 Functional Status N/A [facility] NEGATED: Highlighted row Functional performance Functional status health issues are not documented Disease [facility]: Mental Status Date Assessment Result Facility NEGATED: Highlighted row Cognitive function [Interpretation] Cognitive status health issues are not documented Disease [facility] Work Phone: Clinical Notes 01-27-2023 to 07-14-2023 Note Date & Type Note Facility 07-14-2023 Evaluation note Encounter Date Diagnosis Assessment Notes Jun, Type 2 diabetes mellitus without complication, without long-term current use of insulin (ICD-10 - E11.9) Sugars show improvement, fortunately the hypoglycemic episodes have resolved. I think his dietary choices are contributing to his episodes of hyperglycemia. I will refer him back to diabetes education for annual refresher course, and I encouraged him to make sure he always has protein with his carbohydrate intake. We discussed potentially increasing his repaglinide dosing, but he says when he took the 2 mg dose he had the same results, so we will stay at the 1 mg dose for now. Recheck in 2 months with another A1c, sooner if problems Jun, Bladder calculus (ICD-10 - N21.0) He is scheduled to have his bladder stone removed in August by urology Jun, Essential (primary) hypertension (ICD-10 - I10) BP controlled, continue Rx [employer] Other 01-02-2024 Hospital Discharge instructions Patient Education 07/01/2023 14:45:30 Bladder Stone Bladder Stone A bladder stone is a buildup of crystals made from the proteins and minerals found in urine. These substances build up when urine becomes too concentrated. Urine is concentrated when there is less water and more proteins and minerals in it. Bladder stones usually develop when a person has another medical condition that prevents the bladder from emptying completely. Crystals can form in the small amount of urine that is left in the bladder. Bladder stones that grow large can become painful and may block the flow of urine. What are the causes? This condition may be caused by: An enlarged prostate, which prevents the bladder from emptying well. An infection of a part of your urinary system (urinary tract infection, or UTI). This includes the: ?Kidneys. ?Bladder. ?Ureters. These are the tubes that carry urine to your bladder. ?Urethra. This is the tube that drains urine from your bladder. A weak spot in the bladder that creates a small pouch (bladder diverticulum). Nerve damage that may interfere with the signals from your brain to your bladder muscles (neurogenic bladder). This can result from conditions such as Parkinson's disease or spinal cord injuries. What increases the risk? This condition is more likely to develop in people who: Get frequent UTIs. Have another medical condition that affects the bladder. Have a history of bladder surgery. Have a spinal cord injury. Have an abnormal shape of the bladder (deformity). What are the signs or symptoms? Common symptoms of this condition include: Pain in the abdomen. A need to urinate more often. Difficulty or pain when urinating. Blood in the urine. Cloudy urine or urine that is dark in color. Pain in the penis or testicles in men. Small bladder stones do not always cause symptoms. How is this diagnosed? This condition may be diagnosed based on your symptoms, medical history, and physical exam. The physical exam will check for tenderness in your abdomen. For men, an exam in the rectum may be done to check the prostate gland. You may have tests, such as: ?A urine test (urinalysis). ?A urine sample test to check for other infections (culture). ?Blood tests, including tests to look for a certain substance (creatinine). A creatinine level thatis higher than normal could indicate a blockage. ?A procedure to check your bladder using a scope with a camera (cystoscopy). You may also have imaging studies, such as: ?CT scan or ultrasound of your abdomen and the area between your hip bones (pelvis or pelvic area). ?An X-ray of your urinary system. How is this treated? This condition may be treated with: Cystolitholapaxy. This procedure uses a laser, ultrasound, or other device to break the stone into smaller pieces. Fluids are used to flush the small pieces from the area. Surgery to remove the stone. A stent. This is a small mesh tube that is threaded into your ureter to make urine flow. Medicines to treat pain. Follow these instructions at home: Medicines Take ujgj-aes-jelbnoa and prescription medicines only as told by your health care provider. Ask your health care provider if the medicine prescribed to you: ?Requires you to avoid driving or using heavy machinery. ?Can cause constipation. You may need to take these actions to prevent or treat constipation: ?Take ohvj-hij-sugvinn or prescription medicines. ?Eat foods that are high in fiber, such as beans, whole grains, and fresh fruits and vegetables. ?Limit foods that are high in fat and processed sugars, such as fried or sweet foods. Alcohol use Do not drink alcohol if: ?Your health care provider tells you not to drink. ?You are , may be , or are planning to become . If you drink alcohol: ?Limit how much you drink to: ?0 1 drink a day for women. ?0 2 drinks a day for men. ?Be aware of how much alcohol is in your drink. In the [place] one drink equals one 12 oz bottle of beer (355 mL), one 5 oz glass of wine (148 mL), or one 1 oz glass of hard liquor (44 mL). Activity Rest as told by your health care provider. Return to your normal activities as told by your health care provider. Ask your health care provider what activities are safe for you. General instructions Drink enough fluid to keep your urine pale yellow. Tell your health care provider about any unusual symptoms related to urinating. Early diagnosis of an enlarged prostate and other bladder conditions may reduce your risk of getting bladder stones. Do not use any products that contain nicotine or tobacco, such as cigarettes, e- cigarettes, or chewing tobacco. If you need help quitting, ask your health care provider. Do not use drugs. Where to find more information [facility] ([facility]): www.[facility]rologyhealth.org Contact a health care provider if you: Have a fever. Feel nauseous or vomit. Are unable to urinate. Have a large amount of blood in your urine. Get help right away if you: Have severe back pain or pain in the lower part of your abdomen. Cannot eat or drink without vomiting. Vomit after taking your medicine. Summary A bladder stone is a buildup of crystals made from the proteins and minerals found in urine. These substances build up when urine becomes too concentrated. Bladder stones that grow large can become painful and may block the flow of urine. Bladder stones may be treated with a laser, a stent, surgery, or pain medicines. This information is not intended to replace advice given to you by your health care provider. Make sure you discuss any questions you have with your health care provider. Document Revised: 01/06/2020 Document Reviewed: 01/06/2020 [employer] Patient Education 2022 [employer]. 07/01/2023 14:44:58 Transurethral Resection of the Prostate Transurethral Resection of the Prostate Transurethral resection of the prostate (TURP) is the removal, or resection, of part of the prostate tissue. This procedure is done to treat an enlarged prostate gland (benign prostatic hyperplasia). The goal of TURP is to remove enough prostate tissue to allow for a normal flow of urine. The procedure will allow you to empty your bladder more completely when you urinate so that you can urinate less often. In a transurethral resection, a thin telescope with a light, a camera, and an electric cutting edge(resectoscope) is passed through the urethra and into the prostate. The opening of the urethra is at the end of the penis. Tell a health care provider about: Any allergies you have. All medicines you are taking, including vitamins, herbs, eye drops, creams, and gdob-zmk-kzopvnf medicines. Any problems you or family members have had with anesthetic medicines. Any bleeding problems you have. Any surgeries you have had. Any medical conditions you have. Any prostate infections you have had. What are the risks? Generally, this is a safe procedure. However, problems may occur, including: Infection. Bleeding. Allergic reactions to medicines. Blood in the urine (hematuria). Damage to nearby structures or organs. Other problems may occur, but they are rare. They include: Dry ejaculation, or having no semen come out during orgasm. Erectile dysfunction, or being unable to have or keep an erection. Scarring that leads to narrowing of the urethra. This narrowing may block the flow of urine. Inability to control when you urinate (incontinence). Deep vein thrombosis. This is a blood clot that can develop in your leg. TURP syndrome. This can happen when you lose too much sodium during or after the procedure. Some signs and symptoms of this condition include: ?Weakness. ?Headaches. ?Nausea or vomiting. ?Muscle cramping. What happens before the procedure? When to stop eating and drinking Follow instructions from your health care provider about what you may eat and drink before your procedure. These may include: 8 hours before your procedure ?Stop eating most foods. Do not eat meat, fried foods, or fatty foods. ?Eat only light foods, such as toast or crackers. ?All liquids are okay except energy drinks and alcohol. 6 hours before your procedure ?Stop eating. ?Drink only clear liquids, such as water, clear fruit juice, black coffee, plain tea, and sports drinks. ?Do not drink energy drinks or alcohol. 2 hours before your procedure ?Stop drinking all liquids. ?You may be allowed to take medicines with small sips of water. If you do not follow your health care provider's instructions, your procedure may be delayed or canceled. Medicines Ask your health care provider about: Changing or stopping your regular medicines. This is especially important if you are taking diabetes medicines or blood thinners. Taking medicines such as aspirin and ibuprofen. These medicines can thin your blood. Do not take these medicines unless your health care provider tells you to take them. Taking oscm-ilb-qbhyigc medicines, vitamins, herbs, and supplements. Surgery safety Ask your health care provider what steps will be taken to help prevent infection. These steps may include: Removing hair at the surgery site. Washing skin with a germ-killing soap. Taking antibiotic medicine. General instructions Do not use any products that contain nicotine or tobacco for at least 4 weeks before the procedure.These products include cigarettes, chewing tobacco, and vaping devices, such as e-cigarettes. If you need help quitting, ask your health care provider. If you will be going home right after the procedure, plan to have a responsible adult: ?Take you home from the hospital or clinic. You will not be allowed to drive. ?Care for you for the time you are told. What happens during the procedure? An IV will be inserted into one of your veins. You will be given one or more of the following: ?A medicine to help you relax (sedative). ?A medicine to make you fall asleep (general anesthetic). ?A medicine that is injected into your spine to numb the area below and slightly above the injection site (spinal anesthetic). Your legs will be placed in foot rests (stirrups) so that your legs are apart and your knees are bent. The resectoscope will be passed through your urethra to your prostate. Parts of your prostate will be resected using the cutting edge of the resectoscope. Fluid will be passed to rinse out the cut tissues (irrigation). The resectoscope will be removed. A small, thin tube (catheter) will be passed through your urethra and into your bladder. The catheter will drain urine into a bag outside of your body. The procedure may vary among health care providers and hospitals. What happens after the procedure? Your blood pressure, heart rate, breathing rate, and blood oxygen level will be monitored until youleave the hospital or clinic. You will be given fluids through the IV. The IV will be removed when you start eating and drinking normally. You may have some pain. Pain medicine will be available to help you. You will have a catheter draining your urine. ?You may have blood in your urine. Your catheter may be kept in until your urine is clear. ?Your urinary drainage will be monitored. If necessary, your bladder may be rinsed out (irrigated) through your catheter. You will be encouraged to walk around as soon as possible. You may have to wear compression stockings. These stockings help to prevent blood clots and reduce swelling in your legs. If you were given a sedative during the procedure, it can affect you for several hours. Do not drive or operate machinery until your health care provider says that it is safe. Summary Transurethral resection of the prostate (TURP) is the removal (resection) of part of the prostate tissue. The goal of this procedure is to remove enough prostate tissue to allow for a normal flow of urine. Follow instructions from your health care provider about taking medicines and about eating and drinking before the procedure. This information is not intended to replace advice given to you by your health care provider. Make sure you discuss any questions you have with your health care provider. Document Revised: 03/12/2022 Document Reviewed: 03/12/2022 [employer] Patient Education 2022 [employer] 07/01/2023 14:20:36 Benign Prostatic Hyperplasia Benign Prostatic Hyperplasia Benign prostatic hyperplasia (BPH) is an enlarged prostate gland that is caused by the normal agingprocess. The prostate may get bigger as a man gets older. The condition is not caused by cancer. The prostate is a walnut-sized gland that is involved in the production of semen. It is located in front of the rectum and below the bladder. The bladder stores urine. The urethra carries stored urine ou t of the body. An enlarged prostate can press on the urethra. This can make it harder to pass urine. The buildup of urine in the bladder can cause infection. Back pressure and infection may progress to bladder damage and kidney (renal) failure. What are the causes? This condition is part of the normal aging process. However, not all men develop problems from thiscondition. If the prostate enlarges away from the urethra, urine flow will not be blocked. If it enlarges toward the urethra and compresses it, there will be problems passing urine. What increases the risk? This condition is more likely to develop in men older than 50 years. What are the signs or symptoms? Symptoms of this condition include: Getting up often during the night to urinate. Needing to urinate frequently during the day. Difficulty starting urine flow. Decrease in size and strength of your urine stream. Leaking (dribbling) after urinating. Inability to pass urine. This needs immediate treatment. Inability to completely empty your bladder. Pain when you pass urine. This is more common if there is also an infection. Urinary tract infection (UTI). How is this diagnosed? This condition is diagnosed based on your medical history, a physical exam, and your symptoms. Tests will also be done, such as: A post-void bladder scan. This measures any amount of urine that may remain in your bladder after you finish urinating. A digital rectal exam. In a rectal exam, your health care provider checks your prostate by putting a lubricated, gloved finger into your rectum to feel the back of your prostate gland. This exam detects the size of your gland and any abnormal lumps or growths. An exam of your urine (urinalysis). A prostate specific antigen (PSA) screening. This is a blood test used to screen for prostate cancer. An ultrasound. This test uses sound waves to electronically produce a picture of your prostate gland. Your health care provider may refer you to a specialist in kidney and prostate diseases (urologist). How is this treated? Once symptoms begin, your health care provider will monitor your condition (active surveillance or watchful waiting). Treatment for this condition will depend on the severity of your condition. Treatment may include: Observation and yearly exams. This may be the only treatment needed if your condition and symptoms are mild. Medicines to relieve your symptoms, including: ?Medicines to shrink the prostate. ?Medicines to relax the muscle of the prostate. Surgery in severe cases. Surgery may include: ?Prostatectomy. In this procedure, the prostate tissue is removed completely through an open incision or with a laparoscope or robotics. ?Transurethral resection of the prostate (TURP). In this procedure, a tool is inserted through the opening at the tip of the penis (urethra). It is used to cut away tissue of the inner core of the prostate. The pieces are removed through the same opening of the penis. This removes the blockage. ?Transurethral incision (TUIP). In this procedure, small cuts are made in the prostate. This lessens the prostate's pressure on the urethra. ?Transurethral microwave thermotherapy (TUMT). This procedure uses microwaves to create heat. The heat destroys and removes a small amount of prostate tissue. ?Transurethral needle ablation (TUNA). This procedure uses radio frequencies to destroy and remove a small amount of prostate tissue. ?Interstitial laser coagulation (ILC). This procedure uses a laser to destroy and remove a small amount of prostate tissue. ?Transurethral electrovaporization (TUVP). This procedure uses electrodes to destroy and remove a small amount of prostate tissue. ?Prostatic urethral lift. This procedure inserts an implant to push the lobes of the prostate away from the urethra. Follow these instructions at home: Take lvze-kxp-fymnvgx and prescription medicines only as told by your health care provider. Monitor your symptoms for any changes. Contact your health care provider with any changes. Avoid drinking large amounts of liquid before going to bed or out in public. Avoid or reduce how much caffeine or alcohol you drink. Give yourself time when you urinate. Keep all follow-up visits. This is important. Contact a health care provider if: You have unexplained back pain. Your symptoms do not get better with treatment. You develop side effects from the medicine you are taking. Your urine becomes very dark or has a bad smell. Your lower abdomen becomes distended and you have trouble passing urine. Get help right away if: You have a fever or chills. You suddenly cannot urinate. You feel light-headed or very dizzy, or you faint. There are large amounts of blood or clots in your urine. Your urinary problems become hard to manage. You develop moderate to severe low back or flank pain. The flank is the side of your body between the ribs and the hip. These symptoms may be an emergency. Get help right away. Call 911. Do not wait to see if the symptoms will go away. Do not drive yourself to the hospital. Summary Benign prostatic hyperplasia (BPH) is an enlarged prostate that is caused by the normal aging process. It is not caused by cancer. An enlarged prostate can press on the urethra. This can make it hard to pass urine. This condition is more likely to develop in men older than 50 years. Get help right away if you suddenly cannot urinate. This information is not intended to replace advice given to you by your health care provider. Make sure you discuss any questions you have with your health care provider. Document Revised: 01/02/2022 Document Reviewed: 01/02/2022 [employer] Patient Education 2022 [employer]. Follow Up Care 06/04/2023 14:21:38 With:SCOTTY VO, Devendra Romero, URL Address: [facility] [address] , [place] [address]- When: Unknown Comments:Schedule Cysto/Litholapaxy/TURP [facility] [place] [phone] Hospital Discharge instructions Patient Education 06/04/2023 14:11:58 Bladder Stone Bladder Stone A bladder stone is a buildup of crystals made from the proteins and minerals found in urine. These substances build up when urine becomes too concentrated. Urine is concentrated when there is less water and more proteins and minerals in it. Bladder stones usually develop when a person has another medical condition that prevents the bladder from emptying completely. Crystals can form in the small amount of urine that is left in the bladder. Bladder stones that grow large can become painful and may block the flow of urine. What are the causes? This condition may be caused by: An enlarged prostate, which prevents the bladder from emptying well. An infection of a part of your urinary system (urinary tract infection, or UTI). This includes the: ?Kidneys. ?Bladder. ?Ureters. These are the tubes that carry urine to your bladder. ?Urethra. This is the tube that drains urine from your bladder. A weak spot in the bladder that creates a small pouch (bladder diverticulum). Nerve damage that may interfere with the signals from your brain to your bladder muscles (neurogenic bladder). This can result from conditions such as Parkinson's disease or spinal cord injuries. What increases the risk? This condition is more likely to develop in people who: Get frequent UTIs. Have another medical condition that affects the bladder. Have a history of bladder surgery. Have a spinal cord injury. Have an abnormal shape of the bladder (deformity). What are the signs or symptoms? Common symptoms of this condition include: Pain in the abdomen. A need to urinate more often. Difficulty or pain when urinating. Blood in the urine. Cloudy urine or urine that is dark in color. Pain in the penis or testicles in men. Small bladder stones do not always cause symptoms. How is this diagnosed? This condition may be diagnosed based on your symptoms, medical history, and physical exam. The physical exam will check for tenderness in your abdomen. For men, an exam in the rectum may be done to check the prostate gland. You may have tests, such as: ?A urine test (urinalysis). ?A urine sample test to check for other infections (culture). ?Blood tests, including tests to look for a certain substance (creatinine). A creatinine level thatis higher than normal could indicate a blockage. ?A procedure to check your bladder using a scope with a camera (cystoscopy). You may also have imaging studies, such as: ?CT scan or ultrasound of your abdomen and the area between your hip bones (pelvis or pelvic area). ?An X-ray of your urinary system. How is this treated? This condition may be treated with: Cystolitholapaxy. This procedure uses a laser, ultrasound, or other device to break the stone into smaller pieces. Fluids are used to flush the small pieces from the area. Surgery to remove the stone. A stent. This is a small mesh tube that is threaded into your ureter to make urine flow. Medicines to treat pain. Follow these instructions at home: Medicines Take vikj-ujq-kzvrvfy and prescription medicines only as told by your health care provider. Ask your health care provider if the medicine prescribed to you: ?Requires you to avoid driving or using heavy machinery. ?Can cause constipation. You may need to take these actions to prevent or treat constipation: ?Take qclu-zng-zqksxvu or prescription medicines. ?Eat foods that are high in fiber, such as beans, whole grains, and fresh fruits and vegetables. ?Limit foods that are high in fat and processed sugars, such as fried or sweet foods. Alcohol use Do not drink alcohol if: ?Your health care provider tells you not to drink. ?You are , may be , or are planning to become . If you drink alcohol: ?Limit how much you drink to: ?0 1 drink a day for women. ?0 2 drinks a day for men. ?Be aware of how much alcohol is in your drink. In the [place] one drink equals one 12 oz bottle of beer (355 mL), one 5 oz glass of wine (148 mL), or one 1 oz glass of hard liquor (44 mL). Activity Rest as told by your health care provider. Return to your normal activities as told by your health care provider. Ask your health care provider what activities are safe for you. General instructions Drink enough fluid to keep your urine pale yellow. Tell your health care provider about any unusual symptoms related to urinating. Early diagnosis of an enlarged prostate and other bladder conditions may reduce your risk of getting bladder stones. Do not use any products that contain nicotine or tobacco, such as cigarettes, e- cigarettes, or chewing tobacco. If you need help quitting, ask your health care provider. Do not use drugs. Where to find more information [facility] ([facility]): www.[facility].org Contact a health care provider if you: Have a fever. Feel nauseous or vomit. Are unable to urinate. Have a large amount of blood in your urine. Get help right away if you: Have severe back pain or pain in the lower part of your abdomen. Cannot eat or drink without vomiting. Vomit after taking your medicine. Summary A bladder stone is a buildup of crystals made from the proteins and minerals found in urine. These substances build up when urine becomes too concentrated. Bladder stones that grow large can become painful and may block the flow of urine. Bladder stones may be treated with a laser, a stent, surgery, or pain medicines. This information is not intended to replace advice given to you by your health care provider. Make sure you discuss any questions you have with your health care provider. Document Revised: 01/06/2020 Document Reviewed: 01/06/2020 [employer] Patient Education 2022 [employer]. 06/04/2023 14:11:49 Cystoscopy Cystoscopy Cystoscopy is a procedure that is used to help diagnose and sometimes treat conditions that affect the lower urinary tract. The lower urinary tract includes the bladder and the urethra. The urethra is the tube that drains urine from the bladder. Cystoscopy is done using a thin, tube-shaped instrument with a light and camera at the end (cystoscope). The cystoscope may be hard or flexible, depending on the goal of the procedure. The cystoscope is inserted through the urethra, into the bladder. Cystoscopy may be recommended if you have: Urinary tract infections that keep coming back. Blood in the urine (hematuria). An inability to control when you urinate (urinary incontinence) or an overactive bladder. Unusual cells found in a urine sample. A blockage in the urethra, such as a urinary stone. Painful urination. An abnormality in the bladder found during an intravenous pyelogram (IVP) or CT scan. Cystoscopy may also be done to remove a sample of tissue to be examined under a microscope (biopsy). Tell a health care provider about: Any allergies you have. All medicines you are taking, including vitamins, herbs, eye drops, creams, and xuwm-iuz-ndibpic medicines. Any problems you or family members have had with anesthetic medicines. Any blood disorders you have. Any surgeries you have had. Any medical conditions you have. Whether you are or may be . What are the risks? Generally, this is a safe procedure. However, problems may occur, including: Infection. Bleeding. Allergic reactions to medicines. Damage to other structures or organs. What happens before the procedure? Medicines Ask your health care provider about: Changing or stopping your regular medicines. This is especially important if you are taking diabetes medicines or blood thinners. Taking medicines such as aspirin and ibuprofen. These medicines can thin your blood. Do not take these medicines unless your health care provider tells you to take them. Taking cmaa-qah-lxtucwf medicines, vitamins, herbs, and supplements. Tests You may have an exam or testing, such as: X-rays of the bladder, urethra, or kidneys. CT scan of the abdomen or pelvis. Urine tests to check for signs of infection. General instructions Follow instructions from your health care provider about eating or drinking restrictions. Ask your health care provider what steps will be taken to help prevent infection. These steps may include: ?Washing skin with a germ-killing soap. ?Taking antibiotic medicine. Plan to have a responsible adult take you home from the hospital or clinic. What happens during the procedure? You will be given one or more of the following: ?A medicine to help you relax (sedative). ?A medicine to numb the area (local anesthetic). The area around the opening of your urethra will be cleaned. The cystoscope will be passed through your urethra into your bladder. Germ-free (sterile) fluid will flow through the cystoscope to fill your bladder. The fluid will stretch your bladder so that your health care provider can clearly examine your bladder blank. Your doctor will look at the urethra and bladder. Your doctor may take a biopsy or remove stones. The cystoscope will be removed, and your bladder will be emptied. The procedure may vary among health care providers and hospitals. What can I expect after the procedure? After the procedure, it is common to have: Some soreness or pain in your abdomen and urethra. Urinary symptoms. These include: ?Mild pain or burning when you urinate. Pain should stop within a few minutes after you urinate. This may last for up to 1 week. ?A small amount of blood in your urine for several days. ?Feeling like you need to urinate but producing only a small amount of urine. Follow these instructions at home: Medicines Take bggz-pdd-ehylvnb and prescription medicines only as told by your health care provider. If you were prescribed an antibiotic medicine, take it as told by your health care provider. Do notstop taking the antibiotic even if you start to feel better. General instructions Return to your normal activities as told by your health care provider. Ask your health care provider what activities are safe for you. If you were given a sedative during the procedure, it can affect you for several hours. Do not drive or operate machinery until your health care provider says that it is safe. Watch for any blood in your urine. If the amount of blood in your urine increases, call your healthcare provider. Follow instructions from your health care provider about eating or drinking restrictions. If a tissue sample was removed for testing (biopsy) during your procedure, it is up to you to get your test results. Ask your health care provider, or the department that is doing the test, when yourresults will be ready. Drink enough fluid to keep your urine pale yellow. Keep all follow-up visits. This is important. Contact a health care provider if: You have pain that gets worse or does not get better with medicine, especially pain when you urinate. You have trouble urinating. You have more blood in your urine. Get help right away if: You have blood clots in your urine. You have abdominal pain. You have a fever or chills. You are unable to urinate. Summary Cystoscopy is a procedure that is used to help diagnose and sometimes treat conditions that affect the lower urinary tract. Cystoscopy is done using a thin, tube-shaped instrument with a light and camera at the end. After the procedure, it is common to have some soreness or pain in your abdomen and urethra. Watch for any blood in your urine. If the amount of blood in your urine increases, call your healthcare provider. If you were prescribed an antibiotic medicine, take it as told by your health care provider. Do notstop taking the antibiotic even if you start to feel better. This information is not intended to replace advice given to you by your health care provider. Make sure you discuss any questions you have with your health care provider. Document Revised: 02/27/2022 Document Reviewed: 01/26/2021 [employer] Patient Education 2022 [employer]. Follow Up Care 03/04/2023 10:15:34 With:SCOTTY VO, Devendra Romero, URL Address: [facility] [address], [place] [address]- When: Unknown [facility] [place] 12-04-2023 Evaluation note* Encounter Date Diagnosis Assessment Notes Treatment Notes Treatment Clinical Notes May, Type 2 diabetes mellitus without complication, without long-term current use of insulin (ICD-10 - E11.9) We had a lengthy discussion regarding treatment options for his diabetes. Ultimately, I advised that we try and switch him to medications that would not run the risk of hypoglycemia. He was very resistant to trying new medicines, he says his previous physician had him on a number of medications which caused various side effects and he really does not want to do that again. We discussed the risk of hypoglycemia and the need to avoid this. His overall glycemic control is acceptable at 7.2, but he is having wide swings in his sugars. Ultimately, we decided to stay on the repaglinide but decrease it to 1 mg with meals 3 times daily, stay on current dose of Basaglar, and watch sugars at home. He thinks his nocturnal hypoglycemia usually occurs when his evening sugars are running in the low 100s. I encouraged him if this is the case, he should make sure and have a bedtime snack. Recheck in 6 weeks, sooner if needed May, Bladder calculus (ICD-10 - N21.0) Follow with urology as above May, Essential (primary) hypertension (ICD-10 - I10) Controlled, continue lisinopril 10 mg daily [employer] Other 09-25-2023 Evaluation note* Encounter Date Diagnosis Assessment Notes Treatment Notes Treatment Clinical Notes Feb, Type 2 diabetes mellitus without complication, without long-term current use of insulin (ICD-10 - E11.9) Feb, Essential (primary) hypertension (ICD-10 - I10) [facility] Other 08-31-2023 Evaluation note* Encounter Date Diagnosis Assessment Notes Treatment Notes Treatment Clinical Notes Jan, Type 2 diabetes mellitus without complication, without long-term current use of insulin (ICD-10 - E11.9) Glycemic control is suboptimal. Freestyle bogdan 3 sensors are ordered. We reviewed his medications at length. Increase the metformin up to 1000 mg twice daily. I would like to get him off the repaglinide and onto a different agent, I offered switching him from this to Januvia today but he wants to only make 1 change at a time. He is curious to see if the CGM provides better insight into his food choices that might be negatively impacting his sugars. Recheck in 3 months, repeat A1c at that time Jan, Bladder calculi (ICD-10 - N21.0) Refer to urology, he is currently asymptomatic [facility] Other 07-31-2023 Evaluation note* Encounter Date Diagnosis Assessment Notes Treatment Notes Treatment Clinical Notes Dec, Type 2 diabetes mellitus without complication, without long-term current use of insulin (ICD-10 - E11.9) Today's exam is unremarkable. Check A1c, baseline surveillance labs for his diabetes. I will send an order for a Dexcom G7 in the hopes that insurance will cover this. Return in a month to review results, and we will request old records as well. Dec, Essential (primary) hypertension (ICD-10 - I10) BP controlled, stay on lisinopril Dec, Gross hematuria (ICD-10 - R31.0) Etiology of this is unclear. It has not been worked up in the past. He previously was taking low-dose aspirin wich he discontinued, we discussed that that might have been a factor but would not likely cause gross hematuria. I advised we start with CT abdomen/pelvis to rule out kidney stone or upper tract abnormalities and also urinalysis. If work-up is negative, we discussed that he will likely need to see a urologist for further evaluation to include cystoscopy [facility] Other Evaluation + Plan note Future Appointments Appointment Date:07/01/2023 01:45:00 PM Scheduled Provider:Devendra MINER MD Location:[facility] Appointment Type:URO Procedure 15 min [facility] Evaluation noteNo assessment information available [facility] Work Phone: Evaluation [facility]No [facility] [employer] Other History general Narrative - Reported* Type Description Date Medical History Hypertension Medical History type II diabetes Surgical History R knee surgery [facility] [employer] Other History of Present illness Narrative* spends time by [place] * wt. similar * hgm 90--150 range..tests 1--2 a day * no sob/ no chest pains * agent 10--14 basa u basa/ plus orals * no hypos [employer] Work Phone: History of Present illness Narrative* spends time by [place] home * wt. similar * hgm 90--150 range. per pt. .tests 1--2 a day * no sob/ no chest pains * agent 10--14 basag u / plus orals * no hypos * had eye care 2020 * overall feels fine * he again declines going on lipid lowering rx [employer] Work Phone: History of Present illness Narrative* Past Medical, Surgical and Family History: reviewed and updated in chart. * Medications and Supplements: Medications and supplements, including calcium and vitamins reviewed and updated in chart. * No, the patient is not using opioids. * Tobacco use: Non-User * Alcohol use: User, As noted in social history occasional. * Illicit drug use: Non-User * Current diet: well balanced diet and diabetic diet. * Exercise Frequency: Keeps busy doing projects around the house The patient does not exercise. * Depression Screening: * Patient Health Questionnaire - 2 (PHQ-2):. * During the past 2 weeks, the patient has not felt down, depressed or hopeless. * During the past 2 weeks, the patient has not felt little interest or pleasure in doing things. * Hearing Impairment: Patient has slight hearing impairment, bilaterally. * Visual Acuity: IO Vision Screening in results section * Visual Acuity Uncorrected: both eyes 20/20/25, right eye 20/20/30, left eye 20/20/50. * Cognitive Impairment: No cognitive impairment observed. * Activities of Daily Living: He does not have issues with activities of daily living (e.g. dressing,bathing, walking, shopping, housekeeping, etc.). * Falls Risk Screening: GRETEL has not fallen in the last 6 months. * Home safety risk factors: None. * Patient's End of Life Decisions: End of life decisions were reviewed with the patient. I agree to follow the patient's decisions. * Patient presents to the clinic today for Annual Medicare Wellness Visit and has the following concern(s): None * He is feeling well in his usual state of health. He recently saw his primary, Dr. Ulloa for a checkup. Dr. Ulloa treats him for type 2 diabetes mellitus, hypertension and hypercholesteremia. * He is retired. Active with walking and daily activities. Enjoys working on his house. He is independent in his ADLs and IADLs. Denies falls. Tries to follow a diabetic, well-balanced diet. He checks his blood sugars daily. Blood sugars this morning in the 120s. * He has some issues with his vision and follows with ophthalmology. Notices bilateral decreased hearing. He has been told he needs hearing aids but has not got them yet. [facility] 102 DO Work Phone: History of Present illness Narrative* Past Medical, Surgical and Family History: reviewed and updated in chart. * Medications and Supplements: Medications and supplements, including calcium and vitamins reviewed and updated in chart. * No, the patient is not using opioids. * Tobacco use: Non-User * Alcohol use: User, As noted in social history occasional. * Illicit drug use: Non-User * Current diet: well balanced diet and diabetic diet. * Exercise Frequency: Keeps busy doing projects around the house The patient does not exercise. * Depression Screening: * Patient Health Questionnaire - 2 (PHQ-2):. * During the past 2 weeks, the patient has not felt down, depressed or hopeless. * During the past 2 weeks, the patient has not felt little interest or pleasure in doing things. * Hearing Impairment: Patient has slight hearing impairment, bilaterally. * Visual Acuity: IO Vision Screening in results section * Visual Acuity Uncorrected: both eyes 20/20/25, right eye 20/20/30, left eye 20/20/50. * Cognitive Impairment: No cognitive impairment observed. * Activities of Daily Living: He does not have issues with activities of daily living (e.g. dressing,bathing, walking, shopping, housekeeping, etc.). * Falls Risk Screening: GRETEL has not fallen in the last 6 months. * Home safety risk factors: None. * Patient's End of Life Decisions: End of life decisions were reviewed with the patient. I agree to follow the patient's decisions. * Patient presents to the clinic today for Annual Medicare Wellness Visit and has the following concern(s): None * He is feeling well in his usual state of health. He recently saw his primary, Dr. Ulloa for a checkup. Dr. Ulloa treats him for type 2 diabetes mellitus, hypertension and hypercholesteremia. * He is retired. Active with walking and daily activities. Enjoys working on his house. He is independent in his ADLs and IADLs. Denies falls. Tries to follow a diabetic, well-balanced diet. He checks his blood sugars daily. Blood sugars this morning in the 120s. * He has some issues with his vision and follows with ophthalmology. Notices bilateral decreased hearing. He has been told he needs hearing aids but has not got them yet. [facility] 102 DO Work Phone: History of Present illness Narrative* Past Medical, Surgical and Family History: reviewed and updated in chart. * Medications and Supplements: Medications and supplements, including calcium and vitamins reviewed and updated in chart. * No, the patient is not using opioids. * Tobacco use: Non-User * Alcohol use: User, As noted in social history occasional. * Illicit drug use: Non-User * Current diet: well balanced diet and diabetic diet. * Exercise Frequency: Keeps busy doing projects around the house The patient does not exercise. * Depression Screening: * Patient Health Questionnaire - 2 (PHQ-2):. * During the past 2 weeks, the patient has not felt down, depressed or hopeless. * During the past 2 weeks, the patient has not felt little interest or pleasure in doing things. * Hearing Impairment: Patient has slight hearing impairment, bilaterally. * Visual Acuity: IO Vision Screening in results section * Visual Acuity Uncorrected: both eyes 20/20/25, right eye 20/20/30, left eye 20/20/50. * Cognitive Impairment: No cognitive impairment observed. * Activities of Daily Living: He does not have issues with activities of daily living (e.g. dressing,bathing, walking, shopping, housekeeping, etc.). * Falls Risk Screening: GRETEL has not fallen in the last 6 months. * Home safety risk factors: None. * Patient's End of Life Decisions: End of life decisions were reviewed with the patient. I agree to follow the patient's decisions. * Patient presents to the clinic today for Annual Medicare Wellness Visit and has the following concern(s): None * He is feeling well in his usual state of health. He recently saw his primary, Dr. Ulloa for a checkup. Dr. Ulloa treats him for type 2 diabetes mellitus, hypertension and hypercholesteremia. * He is retired. Active with walking and daily activities. Enjoys working on his house. He is independent in his ADLs and IADLs. Denies falls. Tries to follow a diabetic, well-balanced diet. He checks his blood sugars daily. Blood sugars this morning in the 120s. * He has some issues with his vision and follows with ophthalmology. Notices bilateral decreased hearing. He has been told he needs hearing aids but has not got them yet. [facility] Work Phone: History of Present illness Narrative* cards appt. 2021 dr majano ([facility]) * r. arm issue resolved * hgm fbs 140--150s..seems a little higher to him * takes meds fine * no sob no cjhest pains * no hypos [employer] Work Phone: History of Present illness Narrative* cards visit. ( i have no note) had stress test ... i need notes. apparently repatha considered ,,cards said he would get back to him(didn tt) pt. has statin intolerance * bp ok on rx * lipids..ideally should be on lipid rx but is intolerant of meds * dm agent basag 15 metf repag a1c 7.2 ..2021 * hgm 117 range * had flu sjhot * eye dr up to date [employer] Work Phone: Hospital course Narrative No data available for this section [facility] note No data available for this section [facility] [place] Chief Complaint here for dm/ bp followuphere for dm/ bp followupPatient presents to the clinic today for Initial Annual Medicare Wellness VisitPatient presents to the clinic today for Initial Annual Medicare Wellness VisitPatient presents to the clinic today for Initial Annual Medicare Wellness Visitdm / bp follow upher e for DM / bp follow up Chief Complaint and Reason for Visit Chief Complaint rt arm numbness Chief Complaint E11.9 R31.0 Chief Complaint E11.9 R31.0 R31.0 Advance Directives No Advanced Directives Records Found Advance Directive Response Recorded Date/ Time Advance Directives No December 07 10:04am Summary Purpose Family History No Family History Records FoundNo Family History Records FoundNo Family History Records FoundNo Family History Records FoundNo Family History Records Found No data available for this section No data available for this section No Family History Records Found Reason for Referral Reason * FU 03/07 Bladder calculi with gross hematuria Diagnosis 1 Bladder calculi (N21 .0) Referral Organization [facility] Referring Provider First Name Светлана Referring Provider Last Name Mast Referring Provider Specialty Family Prac jyothi Referred Organization [facility] Referred Address [address],[place], [place],[address] Referred Provider Specialty Urology Referral Priority Routine General Notes Savannah Panda 01:30:25 PM >referral received and faxed Additional Source Comments Care Teams (unrecognized sec tion and content) Team Status: Inactive Member Role Status Dates NON STAFF Primary Care Provider Active Darien Florentino APRN Emergency Provider Active Team Status: Active Member Role Status Dates NON STAFF Primary Care Provider Active Team Status: Active Member Role Status Dates Светлана Mast , DO Primary Care Provider Active Team Status: Inactive Member Role Status Dates Светлана Mast , DO Primary Care Provider, Attending Provid er Active Goals (unrecognized section and content) Goals may be documented in a n alternate sectionNo InformationGoals may be documented in an alternate sectionGoals may be documented in an alternate sectionNo InformationNo InformationNo InformationNo Information No data available for this section No data available for this sectionNo Information (unrecognized sect ion and content) No Status Records FoundNo Status Records FoundNo Status Records FoundNo Status Records FoundNo Status Records FoundNo Status Records Found INFORMATION SOURCE (unrecogn ized section and content) DATE CREATED AUTHOR 06/20/2022 [facility] DATE CREATED AUTHOR AUTHOR'S ORGANIZ ATION 06/21/2022 [employer] DATE CREATED AUTHOR AUTHOR'S ORGANIZ ATION 09/11/2022 [facility] DATE CREATED AUTHOR AUTHOR'S ORGANIZ ATION 10/11/2022 [facility] DATE CREATED AUTHOR AUTHOR'S ORGANIZ ATION 02/18/2023 [facility] DATE CREATED AUTHOR AUTHOR'S ORGANIZ ATION 09/12/2023 [facility] REASON FOR VISIT (unrecogniz ed section and content) get established1 month Follo w upNo InformationNew Script3 month Follow up6 WEEKS FOR RECORDS PERTAINING TO PATIENTS WHO ARE OR HAVE BEEN ENROLLED IN A CHEMICAL DEPENDENCY/SUBSTANCEABUSE PROGRAM, SOME INFORMATION MAY BE OMITTED. This clinical summary was aggregated from multiple sources. Caution should be exercised in using it in the provision of clinical care. This summary normalizes information from multiple sources, and as a consequence, information in this document may materially change the coding, format and clinical context of patient data. In addition, data may be omitted in some cases. CLINICAL DECISIONS SHOULD BE BASED ON THE PRIMARY CLINICAL RECORDS. [employer] provides no warranty or guarantee of the accuracy or completeness of information in this document.
[2023-09-17 12:54] LABS: Basophils Absolute Auto 0.1 10^3/uL (0.0-0.1); Basophils Percent Auto 0.7 % (0.2-2.0); Eosinophils Absolute Auto 0.4 10^3/uL (0.0-0.7); Eosinophils Percent Auto 5.2 % (0.9-7.0); Hematocrit 37.8 % (42.0-54.0); Immature Granulocytes Abs Auto 0.02 10^3/uL (0.00-0.03); Immature Granulocytes Pct Auto 0.3 % (0.0-0.5); Lymphocytes Absolute Auto 2.7 10^3/uL (1.2-3.8); Lymphocytes Percent Auto 37.6 % (20.5-60.0); Mean Corpuscular HGB Conc 34.4 g/dL (29.9-35.2); Mean Corpuscular Hemoglobin 30.9 pg (25.9-34.0); Mean Corpuscular Volume 89.8 fL (80.0-94.0); Mean Platelet Volume 10.5 fL (9.5-13.5); Monocytes Absolute Auto 0.6 10^3/uL (0.3-0.8); Neutrophils Absolute Auto 3.4 10^3/uL (1.4-6.5); Neutrophils Percent Auto 48.2 % (43.0-75.0); Platelet Count 158 10^3/uL (150-450); Red Blood Count 4.21 10^6/uL (4.70-6.10); Red Cell Distribution Width 12.3 % (11.0-15.0); White Blood Count 7.1 10^3/uL (4.0-11.0)
--- NOTE | 2023-09-17 12:54 | PM.PRESUREVA ---
History of Present Illness History of Present Illness Chief complaint: BPH WITH OBSTRUCTION Narrative: Patient reports for preadmission testing. The patient was scheduled for this procedure earlier this year, but it was rescheduled by Dr. Miner office. The patient states he continues to have intermittent hematuria and difficulty starting urine stream. He denies nausea, vomiting, fever, abdominal pain, or any other complaints. Review of Systems ROS Narrative REVIEW OF SYSTEMS: Negative except as stated in HPI, ten or more systems reviewed. Constitutional: No fever , chills, weakness ENT: No sore throat or epistaxis Cardiovascular: No edema, chest pain, palpitations, or activity intolerance Respiratory: No shortness of breath, cough, or wheezing Musculoskeletal: No joint pain or swelling Gastrointestinal: No abdominal pain, constipation, diarrhea, or vomiting Genitourinary: No dysuria or hematuria Neurological: No numbness, tingling, weakness, or headache Psychiatric: No mood changes [facility] Medical History (Updated 09/17/23 @ 12:41 by Sofi Kelly NP) COVID-19 (03/2023) ?U07.1 - COVID-19 (ICD-10) Postoperative nausea and vomiting ?R11.2 - Nausea with vomiting, unspecified (ICD-10) ?Z98.890 - Other specified postprocedural states (ICD-10) Diabetes ?E11.9 - Type 2 diabetes mellitus without complications (ICD-10) Hypertension ?I10 - Essential (primary) hypertension (ICD-10) Elevated PSA ?R97.20 - Elevated prostate specific antigen [PSA] (ICD-10) Hematuria ?R31.9 - Hematuria, unspecified (ICD-10) Bladder stone ?N21.0 - Calculus in bladder (ICD-10) BPH with obstruction/lower urinary tract symptoms ?N40.1 - Benign prostatic hyperplasia with lower urinary tract symptoms (ICD-10) ?N13.8 - Other obstructive and reflux uropathy (ICD-10) Surgical History (Updated 08/14/23 @ 10:14 by Sofi Kelly NP) H/O eye surgery ?Z98.890 - Other specified postprocedural states (ICD-10) History of colonoscopy ?Z98.890 - Other specified postprocedural states (ICD-10) H/O cystoscopy ?Z98.890 - Other specified postprocedural states (ICD-10) H/O knee surgery ?Z98.890 - Other specified postprocedural states (ICD-10) Family History (Updated 08/14/23 @ 10:14 by Sofi Kelly NP) Other Family history of diabetes mellitus Family history of hypertension Heart disease Social History (Updated 08/14/23 @ 10:10 by Sofi Kelly NP) Within the past year, how often did you have a drink containing alcohol: never Score interpretation: A score less than 4 is consistent with normal alcohol consumption. Smoking status: Never smoker Non-prescribed substance use: denies use Highest level of school completed/degree received: high school graduate Meds Home Medications and Allergies Home Medications ?Medication ?Instructions ?Recorded ?Confirmed ?Type aspirin 81 mg tablet,delayed 81 mg PO DAILY 08/14/23 09/17/23 History release (Adult Aspirin Regimen) insulin glargine 100 unit/mL (3 10 unit subcut QPM 08/14/23 09/17/23 History mL) subcutaneous pen (Basaglar KwikPen U-100 Insulin) lisinopril 10 mg tablet 10 mg PO DAILY 08/14/23 09/17/23 History metformin 500 mg tablet,extended 500 mg PO DAILY 08/14/23 09/17/23 History release 24 hr repaglinide 1 mg tablet 1 mg PO TID 08/14/23 09/17/23 History tamsulosin 0.4 mg capsule (Flomax) 0.4 mg PO DAILY 08/14/23 09/17/23 History Allergies Allergy/AdvReac Type Severity Reaction Status Date / Time Gkyqbuc-VPR-AyA Reductase Allergy Rash Verified 09/17/23 12:28 Inhibitor Sulfa (Sulfonamide Allergy Rash Verified 09/17/23 12:28 Antibiotics) Exam Narrative Exam Narrative: Constitutional: Awake, alert, comfortable, well-appearing, nontoxic, interactive, vital signs as charted Head: Normocephalic, atraumatic Neck: Supple, normal appearance, normal range of motion, no meningeal signs, no lymphadenopathy Respiratory: No respiratory distress, breath sounds clear Cardiovascular: Regular rate and rhythm, strong and regular heart tones Abdomen: Nontender, normal bowel sounds, soft, no CVA tenderness Musculoskeletal: Normal gait, no swelling or edema Skin: No rashes or induration, no lesions, only visible skin inspected Neuro: No neurological deficits, normal sensation Psychiatric: Oriented ?3, Flat affect, poor insight Assessment and Plan Assessment and Plan (1) BPH with obstruction/lower urinary tract symptoms: (2) Bladder stone: (3) Hematuria: Plan Cystoscopy, transurethral resection of the prostate, litholapaxy scheduled with Dr. Miner 10/16/2023.
[2023-09-17 13:14] LABS: Anion Gap 15.7; BUN Creatinine Ratio 17.9; Calcium 9.1 mg/dL (8.5-10.1); Chloride 104 mmol/L (98-107); Estimated GFR (African America 54 (>=60); Estimated GFR (Non-African Ame 44 (>=60); Glucose 155 mg/dL (74-106); Potassium 4.7 mmol/L (3.5-5.1); Sodium 139 mmol/L (136-145)
[2023-09-17 13:58] LABS: INR 1.03; Partial Thromboplastin Time 27.5 sec (22.3-36.2); Prothrombin Time 10.9 sec (9.0-11.6)
== END 2023-09-17 11:51 | disposition home or self-care (01) ==
LOC: PST 11:51
PROVIDERS: Visit Provider Urology
DX: Z01.812 Encounter for preprocedural laboratory examination (principal); Z01.818 Encounter for other preprocedural examination; N40.1 Benign prostatic hyperplasia with lower urinary tract symptoms; N13.8 Other obstructive and reflux uropathy
CPT/HCPCS: 80048; 85025; 85610; 85730; G0463

== ENCOUNTER 2024-01-16 08:37 | Outpatient (OUT) | payer MEDICARE, BC, SELFPAY ==
--- OUTSIDE RECORDS SUMMARY | 2024-01-16 08:56 | XMS_ITS | CCD ---
Author Organization [facility] [employer] Care Team Providers Care Research Nutritionist Name Role Phone Nekl, Jaylon Unavailable Unavailable Nekl, Jaylon E Unavailable Unavailable Alice Rosales A Unavailable Unavailable Nekl, Jaylon E Unavailable Unavailable Unavailable Unavailable Unavailable NON STAFF Primary Care Provider UnavailCRISTOPHER [place] Emergency Provider Unavailable Unavailable NEKL, JAYLON LAKHWINDER Referring Unavailable NEKL, JAYLON LAKHWINDER Primary Care Unavailable NEKL, JAYLON LAKHWINDER Attending Unavailable NEKL, JAYLON LAKHWINDER Referring Unavailable NEKL, JAYLON LAKHWINDER Primary Care Unavailable NEKL, JAYLON LAKHWINDER Attending Unavailable NEKL, JAYLON LAKHWINDER Primary Care Unavailable NEKL, JAYLON LAKHWINDER Attending Unavailable NEKL, JAYLON LAKHWINDER Referring Unavailable NEKL, JAYLON LAKHWINDER Referring Unavailable NEKL, JAYLON LAKHWINDER Primary Care Unavailable NEKL, JAYLON LAKHWINDER Attending Unavailable VANGIE DORADO MD Attending Unavailable CESARIO YOON MD Admitting Unavailable CESARIO YOON MD Attending Unavailable HIREN KIM CRNA Consulting Unavailable NEKL, JAYLON Primary Care Unavailable GRETEL MAJANO MD Attending Unavailable NEKL, JAYLON Primary Care Unavailable GRETEL MAJANO MD Admitting Unavailable Mast, Светлана Unavailable Mast, DO Светлана Primary Care Provider Mast, DO Светлана Attending Provider MAST, СВЕТЛАНА E Primary Care Physician Mast, DO Светлана Primary Care Provider MD Devendra Miner Attending Provider [phone] MAST, СВЕТЛАНА E Primary Care Physician MINER, Devendra R Attending Unavailable MINER, Devendra R Attending Unavailable MINER, Devendra R Attending Unavailable MINER, Devendra R Referring Unavailable MINER, Devendra R Admitting Unavailable MINER, Devendra R Attending Unavailable MINER, Devendra R Attending Unavailable MINER, Devendra R Admitting Unavailable MINER, Devendra R Attending Unavailable MINER, Devendra R Attending Unavailable MINER, Devendra R Referring Unavailable MAST, СВЕТЛАНА E Referring Unavailable MINER, Devendra R Attending Unavailable MINER, Devendra R Attending Unavailable MINER, Devendra R Attending Unavailable MINER, Devendra R Attending Unavailable MINER, Devendra R Attending Unavailable Mast, Светлана Admitting Unavailable Mast, Светлана Attending Unavailable Mast, Светлана Primary Care Unavailable Mast, Светлана Admitting Unavailable Mast, Светлана Attending Unavailable Mast, Светлана Primary Care Unavailable Miner, Devendra Attending Unavailable Miner, Devendra Admitting Unavailable Mast, Светлана Primary Care Unavailable Miner, Devendra Attending Unavailable Miner, Devendra Admitting Unavailable Mast, Светлана Primary Care Unavailable Allergies Allergy Classification Reported Allergen(s) Allergy Type Date of Onset Reaction(s) Facility Cholesterol Absorption Inhibitors (1 source) ezetimibe; Translations: [Zetia TABS] Drug Allergy [facility] Work Phone: colesevelam (1 source) colesevelam; Translations: [Welchol] Drug Allergy [facility] Work Phone: Linagliptin (1 source) Linagliptin; Translations: [Tradjenta TABS] Drug Allergy [facility] Work Phone: Sulfonamides (antibiotic) (1 source) Sulfonamides (Antibiotic); Translations: [Sulfa Drugs] Drug Allergy [facility] Work Phone: Thiazolidinediones (glitazones) (1 source) pioglitazone; Translations: [Pioglitazone HCl TABS] Drug Allergy [facility] Work Phone: (20 sources) colesevelam; Translations: [Welchol] Drug Allergy [facility] (20 sources) ezetimibe; Translations: [Zetia TABS] Drug Allergy [facility] Work Phone: (20 sources) Linagliptin; Translations: [Tradjenta TABS] Drug Allergy [facility] Work Phone: (20 sources) pioglitazone; Translations: [Pioglitazone HCl TABS] Drug Allergy [facility] Work Phone: (20 sources) Sulfonamides (Antibiotic); Translations: [Sulfa Drugs] drug allergy [facility] Work Phone: (8 sources) Sulfonamides (Antibiotic); Translations: [Sulfa (Sulfonamide Antibiotics)] Allergy to substance 12-08-19 22 Unknown Reaction, Hives [facility] (8 sources) Wibvmaj-WFA-MtX Reductase Inhibitor; Translations: [Kwnfghv-UEM-DeN Reductase Inhibitor] Allergy to substance 12-08-19 22 Unknown Reaction, Unknown Reaction, rash, Muscle Pain [facility] (1 source) ezetimibe Drug Allergy [facility] (1 source) Linagliptin Drug Allergy [facility] (1 source) pioglitazone Drug Allergy [facility] (1 source) Sulfonamides (Antibiotic) Drug allergy (disorder) [facility] (13 sources) HMG-CoA reductase inhibitor; Translations: [statins] Drug allergy rash, Eruption of skin (disorder) [facility] (6 sources) Sulfacetamide Sod-Sulfur Drug allergy rash [employer] Other (3 sources) SITagliptin Drug Allergy 07-14-19 24 shortness of breath [facility] (8 sources) Sulfur; Translations: [sulfur topical] Drug Allergy Eruption of skin (disorder) [facility] (1 source) Sulfacetamide Drug Allergy 07-14-19 24 rash [facility] (4 sources) Gliptins (DPP-4 Inhibitors); Translations: [Gliptins (DPP-4 Inhibitors)] Propensity to adverse reactions 10-16-19 24 Laryngitis [facility] (1 source) Hmg-Coa Reductase Inhibitors (Statins); Translations: [statins] Propensity to adverse reactions (disorder) [facility] Medications Current Medications Medication Drug Class(es) Dates Sig (Normalized) Sig (Original) aspirin 81 mg delayed release oral tablet (10 sources) Platelet Aggregation Inhibitor, Nonsteroidal Anti-inflammatory Drug Start: 06-04-2023 take 1 mg by mouth once daily aspirin 81 mg Oral EC Tab mg tab(s), Oral, Daily, Refills(s) 0 Start Date: 06/04/23 Status: Ordered Basaglar KwikPen (7 sources) Start: 06-04-2023 Basaglar KwikPen SubCutaneous, Daily, Refills(s) 0 Start Date: 06/04/23 Status: Ordered Blood-Glucose Sensor (Freestyle Mohamud 3 Sensor) device (3 sources) Start: 09-19-2023 Blood-Glucose Sensor (Freestyle Mohamud 3 Sensor) device Active 0 .Route 6 September 19, 2023 12:00am As directed Dexcom G7 Sensor - (1 source) Dexcom G7 Sensor - as directed 1 box Active FreeStyle Mohamud 3 Sensor - (5 sources) Start: 02-27-2023 FreeStyle Mohamud 3 Sensor - as directed 1 box Jan, Active 3 ml insulin glargine 100 unt/ml pen injector (20 sources) Insulin Analog Start: 10-16-2023 inject 10 [IU] by subcutaneous injection once daily at bedtime Insulin Glargine Active 10 UNIT SUBCUT Daily at bedtime October 16, 2023 12:00am Start: 09-18-2023 Insulin Glargi ne (Basaglar Kwikpen U-100 Insulin) 100 unit/mL (3 mL) insulin pen Active 12 UNIT SUBCUT September 18, 2023 2:00pm Start: 09-18-2023 End: 09-18-2023 inject 10 [IU] by subcutaneous injection once daily Insulin Glargine (Basaglar Kwikpen U-100 Insulin) 100 unit/mL (3 mL) insulin pen Discontinued UNIT SUBCUT September 18, 2023 12:00am September 18, 2023 2:05pm [employer] Units Subcutaneous once a day; Note: Source Status: Continue; Provider: Castro Krishna Start: 10-20-2018 Basaglar KwikP en 100 UNIT/ML Subcutaneous Solution Pen-injector INJECT 15 UNIT Daily Quantity: 1 Refills: 3 Ordered: 18-Jan-2022 Jaylon Ulloa MD Start : 20-Oct-2018 Active Start: 10-20-2018 inject 12 [IU] by shaw bcutaneous injection once daily, then inject 100 [IU] by subcutaneous injection Basaglar KwikPen 100 UNIT/ML Subcutaneous Solution Pen-injector INJECT 12 UNIT Daily Quantity: 1 Refills: 5 Jaylon Ulloa MD Start : 20-Oct-2018 Active 5 x 3 ML Pen inject 10 [IU] by shaw bcutaneous injection once daily Basaglar KwikPen 100 UNIT/ML 10 Units Subcutaneous once a day Active lisinopril 10 mg oral tablet (20 sources) Angiotensin Converting Enzyme Inhibitor Start: 05-11-2020 End: 10-16-2023 take 1 mg by mouth once daily lisinopril 10 mg Tab mg tab(s), Oral, Daily, Refills(s) 0 Start Date: 06/04/23 Status: Ordered Start: 07-20-2018 take 1 tablet by savi th once daily Lisinopril 5 MG Oral Tablet Take 1 tablet daily Quantity: 90 Refills: 3 Jaylon Ulloa MD Start : 20-Jul-2018 Active 24 hr metFORMIN hydrochlorid e 500 mg extended release oral tablet (20 sources) Biguanide Start: 10-16-2023 Metformin Acti ve 1000 MG PO .COMPLEX October 16, 2023 12:00am 1000 mg QAM, 500 mg Noon, 500 mg QPM Provider: Castro Felderic Tomi Start: 09-18-2023 End: 10-16-2023 take 2 tablets by mouth twice daily Metformin Discontinued 1000 MG PO Twice daily 360 September 18, 2023 1:59pm October 16, 2023 12:26pm [employer] tablets Orally twice a day; Note: Source Status: Continue; Provider: Castro Светлана E Start: 06-04-2023 take 1 mg by mouth once daily metformin 500 mg ER Tab mg tab(s), Oral, Daily, Refills(s) 0 Start Date: 06/04/23 Status: Ordered Start: 10-26-2013 take 2 tablets by mo uth twice daily metFORMIN HCl ER 500 MG Oral Tablet Extended Release 24 Hour take 2 tablets by mouth twice daily Quantity: 360 Refills: 3 Jaylon Ulloa MD Start : 26-Oct-2013 Active Start: 10-26-2013 take 1 tablet by savi th three times daily metFORMIN HCl ER 500 MG Oral Tablet Extended Release 24 Hour TAKE 1 TABLET 3 times daily Quantity: 270 Refills: 3 Ordered: 09-Feb-2022 Jaylon Ulloa MD Start : 26-Oct-2013 Active repaglinide 1 mg oral tablet (20 sources) Glinide Start: 12-06-2023 take 1 tablet by mouth three times daily Repaglinide Active 0 .ROUTE .COMPLEX 270 December 06, 2023 7:38am TAKE ONE TABLET BY MOUTH THREE TIMES DAILY Start: 06-04-2023 End: 12-06-2023 repaglinide 1 mg Tab mg tab( s), Oral, TIDAC, Refills(s) 0 Start Date: 06/04/23 Status: Ordered Start: 08-26-2014 take 1 tablet by savi three times daily Repaglinide 2 MG Oral Tablet TAKE 1 TABLET BY MOUTH THREE TIMES DAILY Quantity: 270 Refills: 3 Ordered: 18-Jan-2022 Jaylon Ulloa MD Start : 26-Aug-2014 Active tamsulosin hydrochloride 0.4 mg oral capsule (12 sources) alpha-Adrenergic Maricel Start: 06-04-2023 End: 05-29-2024 take 1 capsule by mouth once daily Flomax 0.4 mg Cap 0.4 mg = 1 cap(s), Oral, Daily, X 30 day(s), # 30 cap(s), Refills(s) 11, Pharmacy: [facility], 178, cm, 06/04/23 13:57:00 EST, Height/Length Dosing, [...] DAYS. Quantity: 1 Refills: 0 Ordered: 20-Jun-2021 Jaylon Ulloa MD Start : 20-Jun-2021 Active cefuroxime 500 mg oral tablet (3 sources) Cephalosporin Antibacterial Start: 06-13-2021 take 1 tablet by mouth twice daily Cefuroxime Axetil 500 MG Oral Tablet Take 1 tablet twice daily Quantity: 14 Refills: 0 Ordered: 13-Jun-2021 Jaylon Ulloa MD Start : 13-Jun-2021 Active ciprofloxacin 500 mg oral tablet (4 sources) Quinolone Antimicrobial Start: 06-04-2023 Cipro 500 mg Tab 500 mg = 1 tab(s), Oral, As Directed, Patient to take 1 tab the day before procedure and the 2nd tab the day of procedure once completed, # 2 tab(s), Refills(s) 0, Pharmacy: [facility], 178, cm, 06/04/23 13:57:00 EST, Height/Length [...] COUGH. Quantity: 120 Refills: 0 Ordered: 20-Jun-2021 Jaylon Ulloa MD Start : 20-Jun-2021 Active Paxlovid (300/100) 20 x 150 MG & 10 x 100MG Oral Tablet Therapy Pack (1 source) Start: 03-12-2022 Paxlovid (300/100) 20 x 150 MG & 10 x 100MG Oral Tablet Therapy Pack dose is nirmatrelvir 300mg twice daily for 5 days and ritonavir 100mg twice daily for 5 days(pt. has normal renal function) Quantity: 1 Refills: 0 Ordered: 12-Mar-2022 Jaylon Ulloa MD Start : 12-Mar-2022 Active paxlovid [...] Onset: 10-10-2022 Episodic Calculus of urinary tract (20 sources) Urinary bladder stone; Translations: [Calculus in bladder] Onset: 06-04-2023 Episodic Coronary atherosclerosis and other heart disease (16 sources) Coronary atherosclerosis; Translations: [Coronary atherosclerosis of unspecified type of vessel, ruby or graft] Onset: 02-11-2022 Chronic Diabetes mellitus [...] Translations: [Unspecified essential hypertension] Onset: 10-10-2022 Chronic Hyperplasia of prostate (11 sources) Benign prostatic hypertrophy with outflow obstruction; Translations: [Benign prostatic hyperplasia with lower urinary tract symptoms] Onset: 12-06-2023 Chronic Immunizations and screening for infectious disease (20 sources) Patient encounter status; Translations: [Other specified vaccination] Episodic Other aftercare (1 source) intermediate card tender (current) use of insulin; Translations: [MANAGER TRANSFUSION CURRENT USE OF INSULIN] Onset: 10-10-2022 Episodic Other connective tissue disease (1 source) Pain in right arm; Translations: [Pain in right arm] 12-22-2023 Episodic Other connective tissue disease (1 source) Pain in right arm; Translations: [Pain in limb] 12-22-2023 Episodic Other gastrointestinal disorders (3 sources) Stool DNA-based colorectal cancer screening positive; Translations: [Abnormal feces] Episodic Other gastrointestinal disorders (1 source) Other fecal abnormalities; Translations: [OTHER FECAL ABNORMALITIES] Onset: 10-10-2022 Episodic Other lower respiratory disease (16 sources) Cough; Translations: [Cough] Episodic Other nervous system disorders (7 sources) Nerve palsy; 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, 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 Chronic Other nutritional; endocrine; and metabolic disorders (20 sources) Body mass index 30+ - obesity; Translations: [Body Mass Index 31.0-31.9, adult] Chronic Other screening for suspected conditions (not mental disorders or infectious disease) (20 sources) Raised prostate specific antigen; Translations: [Patient encounter status] Onset: 02-11-2022 Episodic Other upper respiratory disease (20 sources) Chronic rhinitis; Translations: [Chronic rhinitis] Chronic Residual codes; unclassified (3 sources) H/O: Disorder; Translations: [Personal history of other specified conditions] Onset: 06-04-2023 Episodic Unclassified (7 sources) History of clinical finding in subject 06-04-2023 Viral infection (5 sources) Disease caused by 2019-nCoV; Translations: [Other specified viral infection] Episodic Past or Other Problems Problem Classification Problem Date Documented Da te Episodic/Chronic Genitourinary symptoms and ill-defined conditions (12 sources) Gross hematuria; Translations: [Blood in urine] Onset: 02-03-2023 Episodic Residual codes; unclassified (1 source) Family history of ischemic heart disease and other diseases of the circulatory system; Translations: [FAM HX ISCHEMIC HRT DZ OTH DZ CIRC] Onset: 02-11-2022 Episodic Unclassified (2 sources) Patient encounter status; Translations: [Screening for colorectal cancer] NEGATED: Highlighted row has not occurred!Residual codes; unclassified (13 sources) Disease Episodic Results Test Name Value Interpretation Reference Range Facility MR prostate wo/w conon 12-25 MR prostate wo/w con [facility] [employer] [address] [place] [id number] MRI Report Signed Patient: Gretel Toscano MR#: [id number] : 1955 Acct:[id number] Age/Sex: 68 / M ADM Date: 12/25/23 Loc: MR Room: Type: [facility] Attending Dr: Devendra Miner MD Copies to: Devendra Miner MD Ordering Provider: Devendra Miner MD Date of Service: 12/25/23 MR/MR prostate wo/w con: R97.20 EXAMINATION: MR prostate wo/w con HISTORY: Elevated PSA. COMPARISON: NONE TECHNIQUE: Multiparametric imaging of the prostate gland was performed with IV contrast. FINDINGS: Prostate Dimensions: 6.9 x 4.0 x 5.6 cm. Prostate Volume: 80 mL. Peripheral Zone: Heterogenous inT2 signal suggestive of prior prostatitis. A focal area of T2 hypointensity is seen involving the anterior aspect of the right peripheral zone at the level of the mid gland measuring 15 x 9 mm with associated restricted diffusion and low ADC value. No gross extracapsular extension is seen. Please see series 4 image 15, series 650 image 18 and series 600 image 18. Central/Transitional Zone: BPH changes. Seminal Vesicles: Unremarkable Neurovascular bundles: Unremarkable. Lymphadenopathy: No evidence of lymphadenopathy. Bladder: Left lateral wall diverticulum.. Bowel: Diverticulosis. Peritoneal Cavity: No free fluid. Bones: No suspicious bony lesion. MR/MR prostate wo/w con IMPRESSION: A focal area of T2 hypointensity is seen involving the anterior aspect of the right peripheral zone at the level of the mid gland measuring 15 x 9 mm with associated restricted diffusion and low ADC value. No gross extracapsular extension is seen. Please see series 4 image 15, series 650 image 18 and series 600 image 18. PI-RADS 5. Targeting of this area on biopsy is recommended. Impression dictated by: Fausto Case Jr..Charlie12/26/2023 9:38 AM Dictation Location: RADIO-PC-12 Transcribed By: [facility] 12/26/23937 Dictated By: Taco Huston Jr, DO 12/26/23932 Signed By: 12/26/23937 Normal [facility] ISTAT XRay CREon 12-25-2023 ISTAT GFR 46.641 Normal [facility] Comment on above: Result Comment: PERF ORMED BY: [facility] [address] [id number] PATHOLOGIST FLOORING MECHANIC JEAN-PIERRE ALFARO M.D. Performed By: #### I SCRE ####[address] [place] [address] [facility] No Panel InformationOrdered By: Devendra Miner on 12-25-2023 Bedside Estimated GFR (eGFR) 46.641 [facility] Whole blood creatinine measu rementOrdered By: Devendra Miner on 12-25-2023 Creatinine [Mass/Vol] 1.6 mg/dL High 0.6-1.3 [facility] Comment on above: ER/ESD physician is notified/shown all ISTAT results.Critical values may be confirmed by laboratory testing ifdeemed necessary by ER attending doctor. Result Comment: ER/E SD physician is notified/shown all ISTAT results. Critical values may be confirmed by laboratory testing if deemed necessary by ER attending doctor. Performed By: #### I SCRE ####[address] [place] [address] [facility] HbA1c HPLC (Bld) [Mass fract ion]on 12-22-2023 HbA1c (Bld) [Mass fraction] 6.8 % [facility] Insurance Correspondenceon 0 11-28-2023 Insurance Correspondence [id number]# 1.00TIFF Normal [facility] PSA Totalon 11-06-2023 Prostate specific Ag [Mass/Vol] 4.5 ng/mL High 0.1-3.5 [facility] Comment on above: Result Comment: The concentration of PSA determined by different manufacturers can vary due to differences in assay methods and reagent specificity. Values obtained from different assay methods cannot be used interchangeably. The methodology used for this result was chemiluminescence using [employer]'s Access Hybritech PSA reagent. Performed By: #### 1 [id number] ####[facility] [id number] [place] [address] Ambulatory Visit Summaryon 0 11-05-2023 Ambulatory Visit Summary GRETEL TOSCANO :1955 Visit Date:11/05/2023 Ambulatory Visit Instructions Your Diagnosis Bladder stone BPH with obstruction/lower urinary tract symptoms History of elevated PSA Your Care Team [...] 1 mg Tab) Procedures Performed Cystoscopy (07/01/2023), Cystoscopy, Procedure on knee. Discharge Vitals Height 178 cm Height 70 in Weight 87 kg Weight 191.4 lb BMI 27.46 What to do next You Need to Schedule the Following Appointments Follow Up with SCOTTY VO, Devendra Romero, VAL When: Where: [facility] [address] [place] [address]- Medications What How Much When Instructions Unchanged [...] Contact prescribing physician if questions or concerns Allergies Sulfur (Rash) statins (Rash) Problems Ongoing [...] the area between your hip bones (pelvis (more content not included)... Normal [facility] Patient Educationon 11-05-19 Patient Education Urology Bladder Stone A bladder [...] these instructions at home: Medicines ? Take rgrn-hsp-vwkimcn and prescription medicines only as told by your health care provider. ? Ask your health care provider if the medicine prescribed to you: ? Requires you to avoid driving or using heavy machinery. ? Can cause constipation. You may need to take these actions to prevent or treat constipation: ? Take qkaa-wtr-zbufvyq or prescription medicines. ? Eat foods that [...] to find more information [facility] ([facility]): www.[facility]rology[facility].org (more content not included)... Normal [facility] Urology Office/Clinic Noteon 11-05-2023 Urology Office/Clinic Note Chief Complaint Pt is here for PO lithoplaxy of bladder stones HPI Staff Follow up Cysto/cystolitholapax y/fulguration of bladder and prostate 10/16/23 Previous DX: bladder stone, BPH w/LUTS, gross hematuria, HX of elevated PSA *Tamsulosin 0.4mg QD PSA: 02/09/16 - 4.19 10/09/16 - 2.16 07/18/17 - 1.68 02/11/19 - 1.72 06/25/21 - 2.61 Dysuria: denies Incomplete bladder emptying: denies Hematuria: denies Frequency: denies Urgency: denies Nocturia: denies Stream: steady stream Leaking: denies Post void dripping: denies Wearing pads/ Depends: denies Urge incontinence: denies Stress incontinence: denies Incontinence without Sensory Awareness: denies Abdominal pain: denies Flank pain: denies Sexual complaints: _ History of Present Illness Tests reviewed: reviewed op note, stone analysis I have reviewed the previous health record information and history for this patient from Dr. Miner. I have reviewed and verified the staff [...] no distress, well nourished, well developed male. Genitourinary: normal scrotum, normal testes, normal urethra, normal epididymis, normal vas deferens/spermatic cord. Flank Pain: none. Bladder: nonpalpable. Assessment/Plan 1. Bladder stone (N21.0: Calculus in bladder) S/p cysto, cystolitholapaxy >5cm, fulguration of bladder and prostate 10/16/23. Stone analysis - Chemical analysis pending. Urination back to how it was one year ago. Now has solid stream and feels he empties completely. No urgency. Nocturia 1-2x/night which was his baseline a year ago. No longer has pain in bladder when mowing the lawn. Pt feels much better. Follow up pending uros or sooner if needed. Pt understands and agrees with plan. -Cleared to restart baby aspirin. 2. BPH with obstruction/lower urinary tract symptoms (N40.1: Benign prostatic hyperplasia with lower urinary tract symptoms) Taking Tamsulosin 0.4 mg qd. Cont wo changes to prevent formation of bladder stones. -Urodynamics scheduled for December. 3. History of elevated PSA (Z87.898: Personal history of other specified conditions) PSA: 02/09/16 - 4.19 10/09/16 - 2.16 07/18/17 - 1.68 02/11/19 - 1.72 06/25/21 - 2.61 Had neg prostate bx years ago by Dr. Pena at [facility]. Elevated PSA level likely from prostatitis and exacerbated from incomplete emptying. [1] -PSA will be drawn IO today. Follow-up With When Contact Information SCOTTY VO, Devendra Romero, VAL [facility] [address], [place] [address]- Additional Instructions: f/u pending uros results, with PVR Patient Education Bladder Stone I, Debbie Mario, personally scribed for Dr. Miner on 11/05/2023 16:21:31. . Documentation recorded by the scribe, Debbie Mario, accurately reflects the services(s) I performed and decisions made by me. Authenticated by Dr. Mienr on 11/05/2023 16:26:26. Problem List/Past Medical History Ongoing Bladder stone BPH with obstruction/lower urinary tract symptoms Gross hematuria History of elevated PSA Hypertension Type 2 diabetes mellitus Historical No qualifying data Procedure/Surgical History Cystoscopy (07/01/2023), Cystoscopy, Procedure on knee. Medications aspirin 81 mg Oral EC Tab, Oral, Daily Basaglar KwikPen, SubCutaneous, Daily Flomax 0.4 mg Cap, 0.4 mg= 1 cap(s), Oral, Daily, 11 refills lisinopril 10 mg Tab, Oral, Daily metformin 500 mg ER Tab, Oral, Daily repaglinide 1 mg Tab, Oral, TIDAC Allergies Sulfur (Rash) statins (Rash) Social History Tobacco Never (less than 100 in lifetime) Tobacco Use:. Never Smokeless Tobacco Use:., 11/05/2023 Family History Diabetes: Mother and Father. Heart disease: Mother. Immunizations Vaccine Date Status influenza virus vaccine, inactivated 04/11/2023 Recorded pneumococcal 20-valent conjugate vaccine 03/21/2023 Recorded diphtheria/pertussis, acel/tetanus adult 12/17/2022 Recorded SARS-CoV-2 (COVID-19) [id number].[id number] 06/02/2022 Recorded zoster vaccine, inactivated 04/19/2022 Recorded influenza virus vac (more content not included)... Normal [facility] Comment on above: Result Comment: Elec tronically Signed By: Devendra MINER MD\.br\Date and Time Signed: 11/05/23 16:26 EDT\.br\Electronically Co-Signed By: Debbie Mario\.br\Date and Time Co-Signed: 11/05/23 16:21 EDT\.br\Electronically Co-Signed By: Debbie Mario.br\Date and Time Co-Signed: 11/05/23 16:25 EDT Pathology Noteon 10-22-2023 Pathology Note [id number]#1 .00TIFF Normal [facility] Operative Reporton Operative Report [id number] .00TIFF Normal [facility] Capillary blood glucose vida urement by glucometer (mass/volume)Ordered By: Devendra Miner on 10-16-2023 Glucose [Mass/Vol] 147 mg/dL Normal [facility] Comment on above: Random Glucose Refer ence Range is dependent on time and content of last meal. Glucose of more than 200 mg/dL in a nonstressed, ambulatory subject supports the diagnosis of Diabetes Mellitus. Result Comment: [place] om Glucose Reference Range is dependent on time and content of last meal. Glucose of more than 200 mg/dL in a nonstressed, ambulatory subject supports the diagnosis of Diabetes Mellitus. Performed By: #### G LULS ####Point of Care testing, ECG 12 lead ECGon 10-16-2023 ECG 12 lead ECG [facility] [place] [address] Electrocardiograph Report Signed Patient: Gretel Toscano MR#: [id number] : 1955 Acct:[id number] Age/Sex: 68 / M ADM Date: 10/16/23 Loc: [place] Room: Type: [facility] Attending Dr: Devendra Miner MD Ordering Provider: Charble Kingsley MD Date of Service: 10/16/23 ECG/ECG 12 lead ECG: pre-op rm 7 Copies to: Test Reason : Blood Pressure : / mmHG Vent. Rate : 055 BPM Atrial Rate : 055 BPM P-R Int : 138 ms QRS Dur : 084 ms QT Int : 430 ms P-R-T Axes : 054 -12 004 degrees QTc Int : 411 ms Poor data quality, interpretation may be adversely affected Sinus bradycardia with sinus arrhythmia Voltage criteria for left ventricular hypertrophy Abnormal ECG Confirmed by Awais Longoria ([id number]) on 10/16/2023 3:46:50 PM Referred By: Electronically Signed By:Awais Longoria Transcribed By: MUS Signed By Awais Longoria MD 10/16/[address] [facility] Glucose Poct Glucometerson 0 10-16-2023 Commemt1 Glu2: Cleaned Meter Normal [facility] Comment on above: Performed By: #### G LULS ####Point of Care testing, Commemt2 WILL NOTIFY DR/VALENTIN Normal [facility] Comment on above: Result Comment: PERF ORMED BY: [facility] [address] [place] [address] PATHOLOGIST FLOORING MECHANIC JEAN-PIERRE ALFARO M.D. Performed By: #### G LULS ####Point of Care testing, Isra 10-16-2023 L Specimen: [id number] Received: 10/16/23 Status: HEATHER Harden Num: [id number] Spec Type: Surgical Subm Dr: Devendra Miner MD Tissues: A Urinary Calculus (BLADDER STONES) Procedures: Level 1 Gross Age/ Patient Sex Location Account Attending Physician Gretel Toscano 68/M [place] [id number] Devendra Miner MD SPEC NUM: [id number] RECD: 10/16/23 STATUS: DED[place]Chapincito HARDEN NUM: [id number] KARLIE: 10/16/23- SUBM DR: Devendra Miner MD ENTERED: 10/16/[address]: SPEC TYPE: Surgical DEPT: S ENTERED BY: [id number] RECV BY: [id number] ORDERED: Level 1 Gross ORDERED: Level 1 Gross Pathological Diagnosis Urinary bladder stones, evacuation and retrieval: -Multiple duvall-yellow calculi of the urinary bladder. Pending chemical analysis to follow. Gross only examination Gross Description Fresh, labeled bladder stones are multiple pieces of duvall-yellow calcified tissue measuring 4.4 x 4.4 x 1.5 cm in aggregate. Submitted for gross identification only. RG/CYC Clinical history: Bladder stones CPT Codes 64514 -------- -------- Specimen: [id number] Received: 10/16/23 Status: HEATHER Harden Num: [id number] Spec Type: Surgical Subm Dr: Devendra Miner MD Tissues: A Urinary Calculus (BLADDER STONES) Procedures: Level 1 Gross -------- Patient: Gretel Toscano [id number] (Continued) -------- Signed (signature on file) Alex Flores MD 10/21/23 4996 Normal [facility] No Panel InformationOrdered By: Devendra Miner on 10-16-2023 Bedside Glucose #2 Comment Will notify /valentin [facility] Bedside Glucose Comment Glu2: cleaned meter [facility] Consent for Procedure/Surger yon 09-19-2023 Consent for Procedure/Surgery [id number] .00TIFF [facility] HbA1c HPLC (Bld) [Mass fract ion]on 09-18-2023 HbA1c (Bld) [Mass fraction] 7.2 % [facility] Lab Reportson 09-18-2023 Lab Reports [id number]#1 .00TIFF Normal [facility] Lab Reports [id number]#1 .00TIFF [facility] Lab Reports [id number]#1 .00TIFF [facility] ECG 12-Leadon 08-15-2023 ECG 12-Lead [id number]#1 .00TIFF [facility] ECG 12-Lead [id number] .00TIFF [facility] Lab Reportson 08-15-2023 Lab Reports [id number]#1 .00TIFF [facility] Lab Reports [id number] .00TIFF [facility] Consent for Procedure/Surger yon 08-05-2023 Consent for Procedure/Surgery [id number] .00TIFF [facility] Consent for Procedure/Surger yon 07-02-2023 Consent for Procedure/Surgery [id number] .00TIFF [facility] Ambulatory Visit Summaryon 0 07-01-2023 Ambulatory Visit [...] Follow Up with SCOTTY VO, Devendra Romero, CARLL When: Comments: Schedule Cysto/Litholapaxy/TUR P Where: [facility] [address], [place] [address]- Medications What How Much When Instructions Unchanged [...] prostate gland. (more content not included)... Normal [facility] Patient Educationon 07-01-19 24 Patient Education Urology Bladder Stone A bladder [...] these instructions at home: Medicines ? Take yhvi-nhh-akqdzpu and prescription medicines only as told by your health care provider. ? Ask your health care provider if the medicine prescribed to you: ? Requires you to avoid driving or using heavy machinery. ? Can cause constipation. You may need to take these actions to prevent or treat constipation: ? Take ypto-rvt-swrsrbf or prescription medicines. ? Eat foods that [...] to find more information [facility] (F): www.urologyhealth.org (more content not included)... Normal [facility] Urology Office/Clinic Noteon 07-01-2023 Urology Office/Clinic Note [...] in bladder) CT AP wo con 02/17/23 [facility] - Multiple dependent urinary bladder calculi, largest [...] tract symptoms) CT AP wo con 02/17/23 [facility] - No obstruction. Prostatomegaly. Questionable scrotal wall [...] [facility] Elevated PSA level likely from prostatitis and exacerbated from incomplete emptying. Follow-up With When Contact Information Devendra MINER MD, [facility] [address], [place] [address]- Additional Instructions: Schedule Cysto/Litholapaxy/TUR P Patient Education Benign Prostatic Hyperplasia I, Rachele Barber , personally scribed for Dr. Miner on 07/01/2023 14:41:03. . Documentation recorded by the scribeRachele, accurately reflects the services(s) I performed and decisions made by me. Problem List/Past Medical History Ongoing Bladder stone BPH with obstruction/lower (more content not included)... Normal [facility] Comment on above: Result Comment: Elec tronically Signed By: Devendra MINER MD\.br\Date and Time Signed: 07/01/23 14:44 EST\.br\Electronically Co-Signed By: Rachele Barber\.br\Date and Time Co-Signed: 07/01/23 14:41 EST Formson 06-05-2023 Forms [id number]#1 .00TIFF [facility] Physician Referralon 023 Physician Referral [id number] .00TIFF [facility] Screenson 06-05-2023 Screens [id number]#1 .00TIFF [facility] Ambulatory Visit Summaryon 1 08-05-2022 Ambulatory Visit Summary NARAGRETEL :1955 Visit Date:06/04/2023 Ambulatory Visit Instructions Your Diagnosis Bladder stone BPH with obstruction/lower urinary tract symptoms Gross hematuria History of elevated PSA Tests Performed Urnls Dip Stick Auto w/o Microscopy POC 08257 Your Care Team Attending Physician - Devendra [...] Scott When: Where: [facility] [address] [place] [address]- Medications What How Much When Instructions Unchanged aspirin (aspirin 81 mg Oral EC Tab) Every day Unchanged insulin glargine (Basaglar KwikPen) Every day Unchanged lisinopril (lisinopril 10 mg Tab) Every day Unchanged metformin (metformin 500 mg ER Tab) Every day Unchanged repaglinide (repaglinide 1 mg Tab) Before meals Test Results Urnls Dip Stick Auto w/o Microscopy POC 59130 (06/04/2023) Bilirubin Urine Dipstick - Negative Blood Urine Dipstick - 1+ Small Glucose Urine Dipstick - Trace 100 mg/dl Ketones Urine Dipstick - Negative Leukocytes Urine Dipstick - Negative Nitrite Urine Dipstick - Negative Protein Urine Dipstick - 2+ (100 mg/dl) Specific [place] Urine Dipstick - 1.020 Urine Appearance Urine [...] check y (more content not included)... Normal [facility] Patient Educationon 06-04-20 Patient Education Urology Bladder [...] these instructions at home: Medicines ? Take itwe-die-idkpyfj and prescription medicines only as told by your health care provider. ? Ask your health care provider if the medicine prescribed to you: ? Requires you to avoid driving or using heavy machinery. ? Can cause constipation. You may need to take these actions to prevent or treat constipation: ? Take nqwk-etm-cpkzzjz or prescription medicines. ? Eat foods that [...] to find more information [facility] ([facility]): www.urologyhealth.org (more content not included)... Normal [facility] Urology Office/Clinic Noteon 06-04-2023 Urology Office/Clinic Note [...] in bladder) CT AP wo con 02/17/23 [facility] - Multiple dependent urinary bladder calculi, largest [...] Local anesthesia. Prophylactic abx sent to [facility]. 2. BPH with obstruction/lower urinary tract symptoms (N40.1: Benign prostatic hyperplasia with lower urinary tract symptoms) CT AP wo con 02/17/23 [facility] - No obstruction. Prostatomegaly. Questionable scrotal wall [...] qd. SEs discussed. Rx sent to [facility]. 3. Gross hematuria (R31.0: Gross hematuria) UA [...] bx years ago by Dr. Pena at [facility]. Elevated PSA level likely from prostatitis and exacerbated from incomplete emptying. Follow-up With When Contact Information SCOTTY VO, Devendra Romero, URL [facility] [address], [place] [address]- Additional Instructions: schedule cysto Patient Education Bladder Stone Cystoscopy I, Debbie Mario, personally scribed for Dr. Miner on 06/04/2023 14:12:52. Electronically signed by (more content not included)... Normal [facility] Comment on above: Result Comment: Elec tronically Signed By: Devendra MINER MD\.br\Date and Time Signed: 06/04/23 14:15 EST\.br\Electronically Co-Signed By: Debbie Mario\.br\Date and Time Co-Signed: 06/04/23 14:13 EST A1C HEMOGLOBINon 06-02-2023 HbA1c (Bld) [Mass fraction] 7.2 % [email or web address] [facility] Message Bus Other HbA1c (Bld) [Mass fraction]o n 06-02-2023 A1C HEMOGLOBIN [facility] Message Bus Other CT abdomen pelvis wo conon 0 02-17-2023 CT abdomen pelvis wo [facility] [address] [address] [address] Scan Report Signed Patient: Gretel Toscano MR#: [id number] : 1955 Acct:[id number] Age/Sex: 67 / M ADM Date: 02/17/23 Loc: [facility] Room: Type: [facility] Attending Dr: Светлана Erazo DO Copies to: [...] Huston Jr., D.O.02/17/2023 2:56 PM Dictation Location: [place] [address] Transcribed By: [facility] 02/17/23 1456 Dictated By: Taco Huston Jr, DO 02/17/23 145 Signed By: 02/17/23 1456 Normal [facility] Potassium [Moles/volume] in Serum or PlasmaOrdered By: Светлана Erazo on 02-05-2023 Potassium [Moles/Vol] 4.7 mmol/L Normal 3.5-5.1 [facility] Comment on above: Result Comment: PERF ORMED BY: [facility] [address] [place] [address] PATHOLOGIST FLOORING MECHANIC JEAN-PIERRE ALFARO M.D. Performed By: #### R TRISTAN Puga ####[facility] [address] [place] [address] [place] A1C with Estimated Average G josé migueln 02-03-2023 Glucose [Mass/Vol] 169 mg/dL Normal The Count includes the [facility] Comment on above: Order Comment: Reaso n for Exam Type 2 diabetes mellitus without complication, without long- Result Comment: PERF ORMED BY: [facility] [address] [place] [address] PATHOLOGIST FLOORING MECHANIC JEAN-PIERRE ALFARO M.D. Performed By: #### U A, A1C WTH eA, CBC, URMACRERAT, CMP, LIPID #### [facility] [address] [place] [address] [place] Alanine aminotransferase [En zymatic activity/volume] in Serum or PlasmaOrdered By: Светлана Mast on 02-03-2023 ALT [Catalytic activity/Vol] 51 U/L Normal 7-52 [facility] Comment on above: Order Comment: Reaso n for Exam Type 2 diabetes mellitus without complication, without long- Performed By: #### U A, A1C WTH eA, CBC, URMACRERAT, CMP, LIPID #### [facility] [address] [place] [id number] [place] Albumin [Mass/volume] in Ser um or Plasma by Bromocresol green (BCG) dye binding methoOrdered By: Светлана Mast on 02-03-2023 Albumin BCG dye [Mass/Vol] 4.5 g/dL 3.5-5.7 [facility] Alkaline phosphatase [Enzyma tic activity/volume] in Serum or PlasmaOrdered By: Светлана Mast on 02-03-2023 ALP [Catalytic activity/Vol] 52 U/L Normal 34-104 [facility] Comment on above: Order Comment: Reaso n for Exam Type 2 diabetes mellitus without complication, without long- Performed By: #### U A, A1C WTH eA, CBC, URMACRERAT, CMP, LIPID #### [facility] [address] [place] [id number] [place] Aspartate aminotransferase [ Enzymatic activity/volume] in Serum or PlasmaOrdered By: Светлана Mast on 02-03-2023 AST [Catalytic activity/Vol] 31 U/L Normal 13-39 [facility] Comment on above: Order Comment: Reaso n for Exam Type 2 diabetes mellitus without complication, without long- Performed By: #### U A, A1C WTH eA, CBC, URMACRERAT, CMP, LIPID #### [facility] [address] Automated basophil %Ordered By: Светлана Mast on 02-03-2023 Basophils/100 WBC (Bld) 1.0 % Normal . [facility] Comment on above: Order Comment: Reaso n for Exam Type 2 diabetes mellitus without complication, without long- Performed By: #### U A, A1C WTH eA, CBC, URMACRERAT, CMP, LIPID #### [facility] [address] Automated basophil countOrde red By: Светлана Mast on 02-03-2023 Basophils (Bld) [#/Vol] 0.1 10*3/uL Normal 0.0-0.2 [facility] Comment on above: Order Comment: Reaso n for Exam Type 2 diabetes mellitus without complication, without long- Result Comment: PERF ORMED BY: [place] [address] PATHOLOGIST FLOORING MECHANIC JEAN-PIERRE ALFARO M.D. Performed By: #### U A, A1C WTH eA, CBC, URMACRERAT, CMP, LIPID #### [facility] [address] Automated blood monocyte cou ntOrdered By: Светлана Mast on 02-03-2023 Monocytes (Bld) [#/Vol] 0.5 10*3/uL Normal 0.0-0.8 [facility] Comment on above: Order Comment: Reaso n for Exam Type 2 diabetes mellitus without complication, without long- Performed By: #### U A, A1C WTH eA, CBC, URMACRERAT, CMP, LIPID #### [facility] [address] Automated eosinophil %Ordere d By: Светлана Mast on 02-03-2023 Eosinophils/100 WBC (Bld) 6.6 % Normal . [facility] Comment on above: Order Comment: Reaso n for Exam Type 2 diabetes mellitus without complication, without long- Performed By: #### U A, A1C WTH eA, CBC, URMACRERAT, CMP, LIPID #### [facility] [address] Automated eosinophil countOr dered By: Светлана Erazo on 02-03-2023 Eosinophils (Bld) [#/Vol] 0.4 10*3/uL Normal 0.0-0.45 [facility] Comment on above: Order Comment: Reaso n for Exam Type 2 diabetes mellitus without complication, without long- Performed By: #### U A, A1C WTH eA, CBC, URMACRERAT, CMP, LIPID #### [facility] [address] Automated monocyte %Ordered By: Светлана Erazo on 02-03-2023 Monocytes/100 WBC (Bld) 7.2 % Normal . F [facility] Comment on above: Order Comment: Reaso n for Exam Type 2 diabetes mellitus without complication, without long- Performed By: #### U A, A1C WTH eA, CBC, URMACRERAT, CMP, LIPID #### [facility] [address] [place] [id number] [facility] Automated neutrophil %Ordere d By: Светлана Erazo on 02-03-2023 Neutrophils/100 WBC (Bld) 48.7 % Normal . [facility] Comment on above: Order Comment: Reaso n for Exam Type 2 diabetes mellitus without complication, without long- Performed By: #### U A, A1C WTH eA, CBC, URMACRERAT, CMP, LIPID #### [facility] [address] [place] [id number] [place] Automated urine color determ inationOrdered By: Светлана Erazo on 02-03-2023 Color (U) Yellow Normal Yellow [facility] Comment on above: Order Comment: Reaso n for Exam Gross hematuria Name Collection Type:: Voided Performed By: #### U A, A1C WTH eA, CBC, URMACRERAT, CMP, LIPID #### [facility] [address] [place] [address] [place] Bilirubin Test strip Ql (U)O rdered By: Светланаsegundo Erazo on 02-03-2023 Bilirubin Ql (U) Negative Negative [facility] Bilirubin.total [Mass/volume ] in Serum or PlasmaOrdered By: Светлана Mast on 02-03-2023 Bilirubin [Mass/Vol] 0.5 mg/dL Normal 0.3-1.0 [facility] Comment on above: Order Comment: Reaso n for Exam Type 2 diabetes mellitus without complication, without long- Performed By: #### U A, A1C WTH eA, CBC, URMACRERAT, CMP, LIPID #### [facility] [address] [place] [id number] [place] Calcium [Mass/volume] in Ser um or PlasmaOrdered By: Светлана Mast on 02-03-2023 Calcium [Mass/Vol] 9.6 mg/dL Normal 8.6-10.3 [facility] Comment on above: Order Comment: Reaso n for Exam Type 2 diabetes mellitus without complication, without long- Performed By: #### U A, A1C WTH eA, CBC, URMACRERAT, CMP, LIPID #### [facility] [address] [place] [id number] [place] Carbon dioxide, total [Moles /volume] in Serum or PlasmaOrdered By: Светлана Mast on 02-03-2023 CO2 [Moles/Vol] 26.4 mmol/L Normal 21.0-31.0 [facility] Comment on above: Order Comment: Reaso n for Exam Type 2 diabetes mellitus without complication, without long- Performed By: #### U A, A1C WTH eA, CBC, URMACRERAT, CMP, LIPID #### [facility] [address] [place] [address] [place] Chloride [Moles/volume] in S mani or PlasmaOrdered By: Светлана Mast on 02-03-2023 Chloride [Moles/Vol] 105 mmol/L Normal 98-107 [facility] Comment on above: Order Comment: Reaso n for Exam Type 2 diabetes mellitus without complication, without long- Performed By: #### U A, A1C WTH eA, CBC, URMACRERAT, CMP, LIPID #### [facility] [address] [place] [address] [place] Cholesterol [Mass/volume] in Serum or PlasmaOrdered By: Светлана Erazo on 02-03-2023 Cholesterol [Mass/Vol] 202 mg/dL High 140-200 [facility] Comment on above: Chol less than 200 m g/dl low riskChol 201-239 mg/dl borderline riskChol 240 mg/dl and greater high risk Order Comment: Reaso n for Exam Type 2 diabetes mellitus without complication, without long- Result Comment: Chol less than 200 mg/dl low risk Chol 201-239 mg/dl borderline risk Chol 240 mg/dl and greater high risk Performed By: #### U A, A1C WTH eA, CBC, URMACRERAT, CMP, LIPID #### [facility] [address] [place] [id number] [facility] Cholesterol in LDL Calc [Mas s/Vol]Ordered By: Светлана Erazo on 02-03-2023 Cholesterol in LDL [Mass/Vol] 129 mg/dL 0-100 [facility] Comment on above: LDL ATP III CLASSIFI CATIONLDL less than 100 mg/dL OptimalLDL 100-129 mg/dL Near or above optimalLDL 130-159 mg/dL Borderline highLDL 160-189 mg/dL HighLDL greater than 189 mg/dL Very high Cholesterol in VLDL Calc [Ma ss/Vol]Ordered By: Светлана Erazo on 02-03-2023 Cholesterol in VLDL [Mass/Vol] 44 mg/dL [facility] Complete Blood Count Auto Di ffon 02-03-2023 Mean Corpuscular HGB Conc 34.0 g/dL Normal 32.5-35.6 [facility] Comment on above: Order Comment: Reaso n for Exam Type 2 diabetes mellitus without complication, without long- Performed By: #### U A, A1C WTH eA, CBC, URMACRERAT, CMP, LIPID #### [facility] [address] [place] [address] [place] NRBC% 0.1 /100{WBC} Normal 0-0.5 [facility] Comment on above: Order Comment: Reaso n for Exam Type 2 diabetes mellitus without complication, without long- Performed By: #### U A, A1C WTH eA, CBC, URMACRERAT, CMP, LIPID #### [facility] [address] [place] [id number] [facility] Comprehensive Metabolic Pane isra 02-03-2023 Albumin [Mass/Vol] 4.5 g/dL Normal 3.5-5.7 The Count includes the [facility] Comment on above: Order Comment: Reaso n for Exam Type 2 diabetes mellitus without complication, without long- Performed By: #### U A, A1C WTH eA, CBC, URMACRERAT, CMP, LIPID #### [facility] [address] [place] [id number] [facility] Anion gap [Moles/Vol] Not performed Normal 6.0-15.0 [facility] Comment on above: Order Comment: Reaso n for Exam Type 2 diabetes mellitus without complication, without long- Performed By: #### U A, A1C WTH eA, CBC, URMACRERAT, CMP, LIPID #### [facility] [address] GFR/1.73 sq M.predicted MDRD (S/P/Bld) [Vol rate/Area] 59.660 mL/min/{1.73_m2} Normal [facility] Comment on above: Order Comment: Reaso n for Exam Type 2 diabetes mellitus without complication, without long- Performed By: #### U A, A1C WTH eA, CBC, URMACRERAT, CMP, LIPID #### [facility] [address] [place] [id number] [facility] Potassium Normal 3.5-5.1 [facility] Comment on above: Order Comment: Reaso n for Exam Type 2 diabetes mellitus without complication, without long- Result Comment: Spec imen hemolyzed, redraw requested Performed By: #### U A, A1C WTH eA, CBC, URMACRERAT, CMP, LIPID #### [facility] [address] [id number] [facility] Creatinine [Mass/volume] in Serum or PlasmaOrdered By: Светлана Erazo on 02-03-2023 Creatinine [Mass/Vol] 1.31 mg/dL High 0.70-1.30 [facility] Comment on above: Order Comment: Reaso n for Exam Type 2 diabetes mellitus without complication, without long- Performed By: #### U A, A1C WTH eA, CBC, URMACRERAT, CMP, LIPID #### [facility] [address] Creatinine [Mass/volume] in UrineOrdered By: Светлана Mast on 02-03-2023 Creatinine (U) [Mass/Vol] 100.0 mg/dL 14.0-26.0 [facility] Erythrocyte distribution wid th [Ratio] by Automated countOrdered By: Светлана Mast on 02-03-2023 Erythrocyte distribution width (RBC) [Ratio] 13.3 % Normal 12.0-14.8 [facility] Comment on above: Order Comment: Reaso n for Exam Type 2 diabetes mellitus without complication, without long- Performed By: #### U A, A1C WTH eA, CBC, URMACRERAT, CMP, LIPID #### [facility] [address] [place] [address] [place] Erythrocytes [#/volume] in B lood by Automated countOrdered By: Светлана Mast on 02-03-2023 RBC (Bld) [#/Vol] 4.24 10*6/uL Normal 3.90-5.60 [facility] Comment on above: Order Comment: Reaso n for Exam Type 2 diabetes mellitus without complication, without long- Performed By: #### U A, A1C WTH eA, CBC, URMACRERAT, CMP, LIPID #### [facility] [address] Glucose [Mass/volume] in Ser um or PlasmaOrdered By: Светлана Mast on 02-03-2023 Glucose [Mass/Vol] 163 mg/dL High 70-100 [facility] Comment on above: ADA recommended refe rence rangeRandom Glucose Reference Range is dependent on time and content of last meal. Glucose of more than 200 mg/dL in a nonstressed, ambulatory subject supports the diagnosis of Diabetes Mellitus. Order Comment: Reaso n for Exam Type 2 diabetes mellitus without complication, without long- Result Comment: [place] Glucose Reference Range is dependent on time and content of last meal. Glucose of more than 200 mg/dL in a nonstressed, ambulatory subject supports the diagnosis of Diabetes Mellitus. ADA recommended reference range Performed By: #### U A, A1C WTH eA, CBC, URMACRERAT, CMP, LIPID #### [facility] [address] Glucose mean value [Mass/vol ume] in Blood Estimated from glycated hemoglobinOrdered By: Светлана Erazo on 02-03-2023 Average glucose Estimated from glycated hemoglobin (Bld) [Mass/Vol] 169 mg/dL [facility] Hematocrit [Volume Fraction] of Blood by Automated countOrdered By: Светлана Erazo on 02-03-2023 Hematocrit (Bld) [Volume fraction] 37.7 % Low 38.8-50.0 [facility] Comment on above: Order Comment: Reaso n for Exam Type 2 diabetes mellitus without complication, without long- Performed By: #### U A, A1C WTH eA, CBC, URMACRERAT, CMP, LIPID #### [facility] [address] Hemoglobin A1c percentageOrd ered By: Светлана Erazo on 02-03-2023 HbA1c (Bld) [Mass fraction] 7.5 % High 4.3-5.6 [facility] Comment on above: Increased risk for d iabetes: 5.7 - 6.4diabetes: >6.4glycemic control for adults with diabetes: <7.0 Order Comment: Reaso n for Exam Type 2 diabetes mellitus without complication, without long- Result Comment: Incr eased risk for diabetes: 5.7 - 6.4 diabetes: >6.4 glycemic control for adults with diabetes: <7.0 Performed By: #### U A, A1C WTH eA, CBC, URMACRERAT, CMP, LIPID #### [facility] [address] [id number] [place] Hemoglobin [Mass/volume] in BloodOrdered By: СветланаShopear on 02-03-2023 Hemoglobin (Bld) [Mass/Vol] 12.8 g/dL Low 13.0-17.0 [facility] Comment on above: Order Comment: Reaso n for Exam Type 2 diabetes mellitus without complication, without long- Performed By: #### U A, A1C WTH eA, CBC, URMACRERAT, CMP, LIPID #### [facility] [address] Ketones Auto test strip (U) [Mass/Vol]Ordered By: Светлана Erazo on 02-03-2023 Ketones (U) [Mass/Vol] Negative Negative [facility] Leukocytes [#/volume] correc dariana for nucleated erythrocytes in Blood by Automated counOrdered By: Светлана Erazo on 02-03-2023 WBC corrected for nucl RBC Auto (Bld) [#/Vol] 6.5 10*3/uL 4.1-10.5 [facility] Leukocytes [#/volume] in Blo od by Automated countOrdered By: Светлана [facility] on 02-03-2023 WBC (Bld) [#/Vol] 6.5 10*3/uL Normal 4.1-10.5 [facility] Comment on above: Order Comment: Reaso n for Exam Type 2 diabetes mellitus without complication, without long- Performed By: #### U A, A1C WTH eA, CBC, URMACRERAT, CMP, LIPID #### [facility] [address] Lipid Panelon 02-03-2023 LDL Cholesterol,Calculated 129 mg/dL High 0-100 [facility] Comment on above: Order Comment: Reaso n for Exam Type 2 diabetes mellitus without complication, without long- Result Comment: LDL ATP III CLASSIFICATION LDL less than 100 mg/dL Optimal LDL 100-129 mg/dL Near or above optimal LDL 130-159 mg/dL Borderline high LDL 160-189 mg/dL High LDL greater than 189 mg/dL Very high Performed By: #### U A, A1C WTH eA, CBC, URMACRERAT, CMP, LIPID #### [facility] [address] Triglyceride w/Reflex 222 mg/dL High 0-149 [facility] Comment on above: Order Comment: Reaso n for Exam Type 2 diabetes mellitus without complication, without long- Result Comment: TRIG ATP III CLASSIFICATION TRIG less than 150 mg/dL Normal TRIG 150-199 mg/dL Borderline high TRIG 200-500 mg/dL High TRIG greater than 500 mg/dL Very high Standard traceable to the Center for Disease Conrtrol and Prevention (CDC) test method. Performed By: #### U A, A1C WTH eA, CBC, URMACRERAT, CMP, LIPID #### [facility] [address] VLDL CHOLESTEROL 44 mg/dL Normal [facility] Comment on above: Order Comment: Reaso n for Exam Type 2 diabetes mellitus without complication, without long- Performed By: #### U A, A1C WTH eA, CBC, URMACRERAT, CMP, LIPID #### [facility] [address] Lymphocytes [#/volume] in Bl ood by Automated countOrdered By: Светлана Erazo on 02-03-2023 Lymphocytes (Bld) [#/Vol] 2.4 10*3/uL Normal 1.00-4.8 [facility] Comment on above: Order Comment: Reaso n for Exam Type 2 diabetes mellitus without complication, without long- Performed By: #### U A, A1C WTH eA, CBC, URMACRERAT, CMP, LIPID #### [facility] [address] [place] [address] [place] Lymphocytes/100 leukocytes i n Blood by Automated countOrdered By: вСетлана Erazo on 02-03-2023 Lymphocytes/100 WBC (Bld) 36.5 % Normal . [facility] Comment on above: Order Comment: Reaso n for Exam Type 2 diabetes mellitus without complication, without long- Performed By: #### U A, A1C WTH eA, CBC, URMACRERAT, CMP, LIPID #### [facility] [address] [id number] [place] MCH [Entitic mass] by Automa dariana countOrdered By: Светлана Erazo on 02-03-2023 MCH (RBC) [Entitic mass] 30.3 pg Normal 27.5-35.2 [facility] Comment on above: Order Comment: Reaso n for Exam Type 2 diabetes mellitus without complication, without long- Performed By: #### U A, A1C WTH eA, CBC, URMACRERAT, CMP, LIPID #### [facility] [address] MCHC Auto (RBC) [Mass/Vol]Or dered By: Светлана Mast on 02-03-2023 MCHC (RBC) [Mass/Vol] 34.0 g/dL 32.5-35.6 [facility] MCV [Entitic volume] by Auto mated countOrdered By: Светлана Mast on 02-03-2023 MCV (RBC) [Entitic vol] 89.0 fL Normal 83.5-101 [facility] Comment on above: Order Comment: Reaso n for Exam Type 2 diabetes mellitus without complication, without long- Performed By: #### U A, A1C WTH eA, CBC, URMACRERAT, CMP, LIPID #### [facility] [address] MicroAlb Creat Ratio,Uon Creatinine, Urine (Random) 100.0 mg/dL High 14.0-26.0 [facility] Comment on above: Order Comment: Reaso n for Exam Type 2 diabetes mellitus without complication, without long- Performed By: #### U A, A1C WTH eA, CBC, URMACRERAT, CMP, LIPID #### [facility] [address] Microalbumin/Creatinine Ratio 35.0 mg/g High 0.0-30.0 [facility] Comment on above: Order Comment: Reaso n for Exam Type 2 diabetes mellitus without complication, without long- Result Comment: 30-3 00 mg/g indicates an increased risk for diabetic nephropathy. Greater than 300 mg/g is consistent with clinical nephropathy. (Am. J. Kidney Disease 1995, 25:107) PERFORMED BY: [place] [address] PATHOLOGIST FLOORING MECHANIC JEAN-PIERRE ALFARO M.D. Performed By: #### U A, A1C WTH eA, CBC, URMACRERAT, CMP, LIPID #### [facility] [address] [place] [address] [place] Microalbumin [Mass/volume] i n UrineOrdered By: Светлана Erazo on 02-03-2023 Albumin DL <= 20 mg/L (U) [Mass/Vol] 3.5 mg/dL High 0.0-1.8 [facility] Comment on above: Order Comment: Reaso n for Exam Type 2 diabetes mellitus without complication, without long- Performed By: #### U A, A1C WTH eA, CBC, URMACRERAT, CMP, LIPID #### [facility] [address] Neutrophils [#/volume] in Bl ood by Automated countOrdered By: Светлана Erazo on 02-03-2023 Neutrophils (Bld) [#/Vol] 3.2 10*3/uL Normal 1.8-7.7 [facility] Comment on above: Order Comment: Reaso n for Exam Type 2 diabetes mellitus without complication, without long- Performed By: #### U A, A1C WTH eA, CBC, URMACRERAT, CMP, LIPID #### [facility] [address] Nitrite Test strip Ql (U)Ord ered By: Светлана Erazo on 02-03-2023 Nitrite Ql (U) Negative Negative [facility] No Panel InformationOrdered By: Светлана Erazo on 02-03-2023 Estimated GFR (CKD-EPI) 59.660 mL/Min [facility] Creatinine Clearance (Chem N/A [facility] Nucleated erythrocytes [Pres ence] in Blood by Automated countOrdered By: Светлана Erazo on 02-03-2023 Nucleated RBC Auto Ql (Bld) 0.1 /100{WBC} 0-0.5 [facility] Platelet mean volume [Entiti c volume] in Blood by Automated countOrdered By: Светланаsegundo Erazo on 02-03-2023 Platelet mean volume (Bld) [Entitic vol] 9.3 fL Normal 6.6-10.1 [facility] Comment on above: Order Comment: Reaso n for Exam Type 2 diabetes mellitus without complication, without long- Performed By: #### U A, A1C WTH eA, CBC, URMACRERAT, CMP, LIPID #### [facility] [address] [place] [address] [place] Platelets [#/volume] in Bloo d by Automated countOrdered By: Светлана Erazo on 02-03-2023 Platelets (Bld) [#/Vol] 156 10*3/uL Normal 150-450 [facility] Comment on above: Order Comment: Reaso n for Exam Type 2 diabetes mellitus without complication, without long- Performed By: #### U A, A1C WTH eA, CBC, URMACRERAT, CMP, LIPID #### [facility] [address] Potassium [Moles/volume] in Serum or PlasmaOrdered By: Светлана Erazo on 02-03-2023 Potassium [Moles/Vol] See comment 3.5-5.1 [facility] Comment on above: Specimen hemolyzed, redraw requested Protein Auto test strip (U) [Mass/Vol]Ordered By: Светлана Erazo on 02-03-2023 Protein (U) [Mass/Vol] Negative Negative [facility] Protein [Mass/volume] in Ser um or PlasmaOrdered By: Светлана Erazo on 02-03-2023 Protein [Mass/Vol] 7.2 g/dL Normal 6.4-8.9 [facility] Comment on above: Order Comment: Reaso n for Exam Type 2 diabetes mellitus without complication, without long- Performed By: #### U A, A1C WTH eA, CBC, URMACRERAT, CMP, LIPID #### [facility] [address] Serum globulin measurement b y calculation (mass/volume)Ordered By: Светлана Erazo on 02-03-2023 Globulin (S) [Mass/Vol] 2.7 g/dL Normal [facility] Comment on above: Order Comment: Reaso n for Exam Type 2 diabetes mellitus without complication, without long- Performed By: #### U A, A1C WTH eA, CBC, URMACRERAT, CMP, LIPID #### [facility] [address] Serum or plasma albumin/glob ulin mass ratioOrdered By: Светлана Erazo on 02-03-2023 Albumin/Globulin [Mass ratio] 1.7 {ratio} Normal [facility] Comment on above: Order Comment: Reaso n for Exam Type 2 diabetes mellitus without complication, without long- Performed By: #### U A, A1C WTH eA, CBC, URMACRERAT, CMP, LIPID #### [facility] [address] Serum or plasma anion gap de terminationOrdered By: Светлана Erazo on 02-03-2023 Anion gap [Moles/Vol] TNP [facility] Comment on above: Test not performed Serum or plasma high density lipoprotein (HDL) cholesterol measurementOrdered By: Светлана Erazo on 02-03-2023 Cholesterol in HDL [Mass/Vol] 29 mg/dL Normal 23-92 [facility] Comment on above: HDL CHOL ATP-III CLA SSIFICATION Cardiovascular RiskHDL > or equal to 60 mg/dL LOWHDL < 40 mg/dL HIGH Order Comment: Reaso n for Exam Type 2 diabetes mellitus without complication, without long- Result Comment: HDL CHOL ATP-III CLASSIFICATION Cardiovascular Risk HDL > or equal to 60 mg/dL LOW HDL < 40 mg/dL HIGH Performed By: #### U A, A1C WTH eA, CBC, URMACRERAT, CMP, LIPID #### [facility] [address] Serum or plasma total choles terol/high density lipoprotein (HDL) cholesterol mass ratOrdered By: Светлана Erazo on 02-03-2023 Cholesterol.total/Lisbeth sterol in HDL [Mass ratio] 7.0 {ratio} Normal <5.0 [facility] Comment on above: Order Comment: Reaso n for Exam Type 2 diabetes mellitus without complication, without long- Result Comment: PERF ORMED BY: [place] [address] PATHOLOGIST FLOORING MECHANIC JEAN-PIERRE ALFARO M.D. Performed By: #### U A, A1C WTH eA, CBC, URMACRERAT, CMP, LIPID #### [facility] [address] Sodium [Moles/volume] in Ser um or PlasmaOrdered By: Светлана Mast on 02-03-2023 Sodium [Moles/Vol] 138 mmol/L Normal 136-145 [facility] Comment on above: Order Comment: Reaso n for Exam Type 2 diabetes mellitus without complication, without long- Performed By: #### U A, A1C WTH eA, CBC, URMACRERAT, CMP, LIPID #### [facility] [address] Specific gravity Auto test s trip (U) [Rel density]Ordered By: Светлана Erazo on 02-03-2023 Specific gravity (U) [Rel density] 1.018 1.001-1.030 [facility] Triglyceride [Mass/volume] i n Serum or PlasmaOrdered By: Светлана [employer] on 02-03-2023 Triglyceride [Mass/Vol] 222 mg/dL 0-149 [facility] Comment on above: TRIG ATP III CLASSIF ICATIONTRIG less than 150 mg/dL NormalTRIG 150-199 mg/dL Borderline highTRIG 200-500 mg/dL High TRIG greater than 500 mg/dL Very highStandard traceable to the Center for Disease Conrtrol and Prevention (CDC) test method. Urea nitrogen [Mass/volume] in Serum or PlasmaOrdered By: Светлана [employer] on 02-03-2023 Urea nitrogen [Mass/Vol] 30 mg/dL High 7-25 [facility] Comment on above: Order Comment: Reaso n for Exam Type 2 diabetes mellitus without complication, without long- Performed By: #### U A, A1C WTH eA, CBC, URMACRERAT, CMP, LIPID #### [facility] [address] Urinalysison 02-03-2023 Appearance (U) Clear Normal Clear [facility] Comment on above: Order Comment: Reaso n for Exam Gross hematuria Name Collection Type:: Voided Performed By: #### U A, A1C WTH eA, CBC, URMACRERAT, CMP, LIPID #### [facility] [address] Bilirubin,Urine Negative Normal Negative [facility] Comment on above: Order Comment: Reaso n for Exam Gross hematuria Name Collection Type:: Voided Performed By: #### U A, A1C WTH eA, CBC, URMACRERAT, CMP, LIPID #### [facility] [address] Glucose Ql (U) Normal Normal Normal [facility] Comment on above: Order Comment: Reaso n for Exam Gross hematuria Name Collection Type:: Voided Performed By: #### U A, A1C WTH eA, CBC, URMACRERAT, CMP, LIPID #### [address] Ketones Ql (U) Negative Normal Negative [facility] Comment on above: Order Comment: Reaso n for Exam Gross hematuria Name Collection Type:: Voided Performed By: #### U A, A1C WTH eA, CBC, URMACRERAT, CMP, LIPID #### [address] Leukocyte esterase Test strip Ql (U) Negative Normal Negative [facility] Comment on above: Order Comment: Reaso n for Exam Gross hematuria Name Collection Type:: Voided Performed By: #### U A, A1C WTH eA, CBC, URMACRERAT, CMP, LIPID #### [place] [address] [place] Nitrite,Urine Negative Normal Negative [facility] Comment on above: Order Comment: Reaso n for Exam Gross hematuria Name Collection Type:: Voided Performed By: #### U A, A1C WTH eA, CBC, URMACRERAT, CMP, LIPID #### [place] [address] [place] Occult Blood,Urine Negative Normal Negative The [facility] includes the [facility] Comment on above: Order Comment: Reaso n for Exam Gross hematuria Name Collection Type:: Voided Result Comment: PERF ORMED BY: [place] [address] PATHOLOGIST FLOORING MECHANIC JEAN-PIERRE ALFARO M.D. Performed By: #### U A, A1C WTH eA, CBC, URMACRERAT, CMP, LIPID #### [place] [address] [place] Protein,Urine Negative Normal Negative [facility] Comment on above: Order Comment: Reaso n for Exam Gross hematuria Name Collection Type:: Voided Performed By: #### U A, A1C WTH eA, CBC, URMACRERAT, CMP, LIPID #### [facility] [address] Specificy [place],Urine 1.018 Normal 1.001-1.030 [facility] Comment on above: Order Comment: Reaso n for Exam Gross hematuria Name Collection Type:: Voided Performed By: #### U A, A1C WTH eA, CBC, URMACRERAT, CMP, LIPID #### [facility] [address] Urobilinogen,Urine Normal Normal Normal The [facility] includes the [facility] Comment on above: Order Comment: Reaso n for Exam Gross hematuria Name Collection Type:: Voided Performed By: #### U A, A1C WTH eA, CBC, URMACRERAT, CMP, LIPID #### [facility] [address] Urine clarity by refractomet ry automatedOrdered By: Светлана Erazo on 02-03-2023 Clarity Refractometry automated (U) Clear Clear [facility] Urine glucose measurement by automated test strip (mass/volume)Ordered By: Светлана Mast on 02-03-2023 Glucose Auto test strip (U) [Mass/Vol] Normal mg/dL Normal [facility] Urine hemoglobin detection b y automated test stripOrdered By: Светлана Mast on 02-03-2023 Hemoglobin Auto test strip Ql (U) Negative Negative [facility] Urine leukocyte esterase det ection by automated test stripOrdered By: Светлана Mast on 02-03-2023 Leukocyte esterase Auto test strip Ql (U) Negative Negative [facility] Urine microalbumin/creatinin e mass ratioOrdered By: Светлана Mast on 02-03-2023 Albumin/Creatinine DL <= 20 mg/L (U) [Mass ratio] 35.0 mg/g 0.0-30.0 [facility] Comment on above: 30-300 mg/g indicate s an increased risk for diabetic nephropathy. Greater than 300 mg/g is consistent with clinical nephropathy. (Am. J. Kidney Disease 1995, 25:107) Urine pH measurement by auto mated test stripOrdered By: Светлана Erazo on 02-03-2023 pH (U) 5.0 [pH] Normal 5.0-9.0 [facility] Comment on above: Order Comment: Reaso n for Exam Gross hematuria Name Collection Type:: Voided Performed By: #### U A, A1C WTH eA, CBC, URMACRERAT, CMP, LIPID #### [facility] [address] Urobilinogen Auto test strip (U) [Mass/Vol]Ordered By: Светлана Erazo on 02-03-2023 Urobilinogen (U) [Mass/Vol] Normal mg/dL Normal [facility] Laboratory - Molecular patho logyon 06-27-2022 Noninvasive colorectal cancer DNA and occult blood screening Ted (Stl) [Interp] Positive Abnormal Negative [employer] Work Phone: Comment on above: [employer] (CLIA #:[id number])[address] [place] [address] [facility] CITYFERNANDO BARRIOS , Clinical Laboratory Medical DirectorPOSITIVE TEST [...] screened with both Cologuard and colonoscopy. (Berto Olmstead al, N Engl J Med 2014;370(14):3989-8817.) Cologuard may produce a false negative or false positive result (no colorectal cancer or precancerous polyp present at colonoscopy follow up). A negative Cologuard test result does not guarantee the absence of CRC or advanced adenoma (pre-cancer). The current Cologuard screening interval is every 3 years. ([place] Cancer Society and [place].S. Multi-Society Task Force). Cologuard performance data in a 10,000 patient pivotal study using colonoscopy as the reference method can be accessed at the following location: www.[employer]/results. Additional description of the Cologuard test process, warnings and precautions can be found at www.[employer]. Blood Pressure Cuff Sizeon 1 08-15-2021 Adult depression screening assessment No [employer] Work Phone: Fall risk assessment a) No falls within the last year [employer] Work Phone: Tobacco use status [facility]PHS b) No [facility] Work Phone: Blood Pressure Cuff Size Adult [employer] Work Phone: Office Visit (Internal Medic ine)on 06-14-2022 Follow-up visit Diagnoses/Problems Assessed Screening for colorectal cancer (V76.51,V76.41) (Z12.11,Z12.12) Type 2 diabetes mellitus (250.00) (E11.9) HTN (hypertension) (401.9) (I10) Orders HTN (hypertension) Continue: Lisinopril 10 MG Oral Tablet; Take 1 tablet daily Rx By: Jaylon Ulloa; Dispense: 0 Days ; #:90 Tablet; Refill: 3;For: HTN (hypertension); YADI = N; Verified Transmission to [facility]; Last Updated By: Nakia Buckley; 06/14/2022 9:05:16 AM Screening for colorectal cancer Cologuard Screening; Status:Active; Requested for:[id number]; Perform:Cologuard Non ; Due:12Sep2022;Ordered ; For:Screening for colorectal cancer; Ordered By:Jaylon Ulloa; Type 2 diabetes mellitus Continue: Basaglar KwikPen 100 UNIT/ML Subcutaneous Solution Pen-injector; INJECT 15 UNIT Daily Rx By: Jaylon Ulloa; Dispense: 90 Days ; #:1 X 5 x 3 ML Pen; Refill: 3;For: Type 2 diabetes mellitus; YADI = N; Verified Transmission to [facility]; Last Updated By: Nakia Buckley; 06/14/2022 9:05:16 AM Continue: BD Pen Needle Sadaf U/F 32G X 4 MM; uses 1 daily Rx By: Jaylon Ulloa; Dispense: 0 Days ; #:1 X 100 Unit Box; Refill: 3;For: Type 2 diabetes mellitus; YADI = N; Verified Transmission to [facility]; Last Updated By: Nakia Buckley; 06/14/2022 9:05:16 AM Continue: metFORMIN HCl ER 500 MG Oral Tablet Extended Release 24 Hour; TAKE 1 TABLET 3 times daily Rx By: Jaylon Ulloa; Dispense: 90 Days ; #:270 Tablet; Refill: 3;For: Type 2 diabetes mellitus; YADI = N; Verified Transmission to [facility] [id number]; Last Updated By: Nakia Buckley; 06/14/2022 9:05:16 AM Continue: OneTouch Delica Plus [id number]; Use 3 times daily as directed Rx By: Jaylon Ulloa; Dispense: 0 Days ; #:3 X 100 Unit Box; Refill: 3;For: Type 2 diabetes mellitus; YADI = N; Ver[facility]; Msg to Pharmacy: e11.9 on insulin; Last Updated By: Nakia Buckley; 06/14/2022 9:05:16 AM Continue: OneTouch Ultra In Vitro Strip; USE TO TEST BLOOD GLUCOSE LEVELS 3 TIMES A DAY Rx By: Jaylon Ulloa; Dispense: 0 Days ; #:3 X [...] BY MOUTH THREE TIMES DAILY Rx By: Jaylon Ulloa; Dispense: 90 Days ; #:270 Tablet; Refill: 3;For: Type 2 diabetes mellitus; YADI = N; Verified Transmission to [facility]; Last Updated By: Nakia Buckley; 06/14/2022 9:05:16 AM Patient Discussion/Summary cologuard follow 5--6 months mohamud discussed...declines get cards dr. pablo e(dr majano.. [facility]) same program Provider Impressions dm ok control bp good on rx Chief Complaint her e for DM / bp follow up History of Present Illnesscards visit. ( i have no note) had stress test ... i need notes. apparently repatha considered ,,cards dr said he would get back to him(didn?tt) [...] Allergies Medication Pioglitazone HCl TABS Recorded By: Jaylon Ulloa; 07/20/2018 9:13:49 AM Sulfa Drugs Recorded By: Jaylon Ulloa; 10/26/2013 1:04:52 PM Tradjenta TABS Recorded By: Jaylon Ulloa; 04/22/2014 9:44:40 AM Welchol Recorded By: Jaylon Ulloa; 03/23/2018 10:18:16 AM Zetia TABS Recorded By: Jaylon Ulloa; 07/25/2017 9:02:00 AM Current Meds Medication NameInstruction Basaglar KwikPen 100 UNIT/ML Subcutaneous Solution Pen-injectorINJECT 15 UNIT Daily BD Pen Needle Sadaf U/F 32G X 4 MMuses 1 daily Lisinop (more content not included)... Normal Touchworks BASIC METABOLIC PANELon 12-0 -2021 Anion gap [Moles/Vol] 13 mmol/L Normal 10 - 20 [facility] Comment on above: Order Comment: PATIE NT FASTING Performed By: #### B MP #### [facility] [address] [place] [address] Calcium [Mass/Vol] 9.9 mg/dL Normal 8.6 - 10.6 [facility] Comment on above: Order Comment: PATIE NT FASTING Performed By: #### B MP #### [facility] [address] [place] [address] Chloride [Moles/Vol] 103 mmol/L Normal 98 - 107 [facility] Comment on above: Order Comment: PATIE NT FASTING Performed By: #### B MP #### [facility] [address] [place] [address] Creatinine [Mass/Vol] 1.33 mg/dL High 0.50 - 1.30 [facility] Comment on above: Order Comment: PATIE NT FASTING Performed By: #### B MP #### [facility] [address] [place] [address] GFR/1.73 sq M.predicted among non-blacks MDRD (S/P/Bld) [Vol rate/Area] 59 mL/min/{1.73_m2} Abnormal >90 [facility] Comment on above: Order Comment: PATIE NT FASTING Result Comment: CALC ULATIONS OF ESTIMATED GFR ARE PERFORMED USING THE 2020 CKD-EPI STUDY REFIT EQUATION WITHOUT THE RACE VARIABLE FOR THE IDMS-TRACEABLE CREATININE METHODS. https://jasn.asnjournals.org/content/early/ASN.2020 430619 Performed By: #### B MP #### [facility] [address] [place] [address] Glucose [Mass/Vol] 177 mg/dL High 74 - 99 [facility] Comment on above: Order Comment: PATIE NT FASTING Performed By: #### B MP #### [facility] [address] [place] [address] HCO3 (Bld) [Moles/Vol] 26 mmol/L Normal 21 - 32 [facility] Comment on above: Order Comment: PATIE NT FASTING Performed By: #### B MP #### [facility] [address] [place] [address] Potassium [Moles/Vol] 5.3 mmol/L Normal 3.5 - 5.3 [facility] Comment on above: Order Comment: PATIE NT FASTING Performed By: #### B MP #### [facility] [address] [place] [address] Sodium [Moles/Vol] 137 mmol/L Normal 136 - 145 [facility] Comment on above: Order Comment: PATIE NT FASTING Performed By: #### B MP #### [facility] [address] [place] [address] Urea nitrogen [Mass/Vol] 31 mg/dL High 6 - 23 [facility] Comment on above: Order Comment: PATIE NT FASTING Performed By: #### B MP #### [facility] [address] [place] [address] HEMOGLOBIN A1Con 06-07-2022 Glucose [Mass/Vol] 160 mg/dL Normal [facility] Comment on above: Order Comment: PATIE NT FASTING Performed By: #### H BA1E #### [facility] [address] [place] [address] HbA1c (Bld) [Mass fraction] 7.2 % Abnormal [facility] Comment on above: Order Comment: PATIE NT FASTING Result Comment: Diag nosis of Diabetes-Adults Non-Diabetic: < or = 5.6% Increased risk for developing diabetes: 5.7-6.4% Diagnostic of diabetes: > or = 6.5% . Monitoring of Diabetes Age (y) Therapeutic Goal (%) Adults: >18 <7.0 Pediatrics: 13-18 <7.5 7-12 <8.0 0- 6 7.5-8.5 [place] [employer] Association. Diabetes Care 33(S1), Jun 2009. Performed By: #### H BA1E #### [facility] [address] [place] [address] Hemoglobin A1Con 06-07-2022 Glucose [Mass/Vol] 160 mg/dL [facility] Work Phone: HbA1c (Bld) [Mass fraction] 7.2 % Abnormal [facility] Work Phone: Comment on above: Diagnosis of Diabete s-Adults Non-Diabetic: < or = 5.6% Increased risk for developing diabetes: 5.7-6.4% Diagnostic of diabetes: > or = 6.5%. Monitoring of Diabetes Age (y) Therapeutic Goal (%) Adults: >18 <7.0 Pediatrics: 13-18 <7.5 7-12 <8.0 0- 6 7.5-8.5 [place] [employer] Association. Diabetes Care 33(S1), Jun 2009. LIPID PANEL (CORONARY RISK 2 )on 06-07-2022 Cholesterol [Mass/Vol] 196 mg/dL Normal 0 - 199 [facility] Comment on above: Order Comment: [...] dosing. Performed By: #### L IPID #### [facility] [address] [place] [address] Cholesterol in HDL [Mass/Vol] 30.1 mg/dL Abnormal [facility] Comment on above: Order Comment: PATIE NT FASTING Result Comment: . AGE VERY LOW LOW NORMAL HIGH 0-19 Y < 35 < 40 40-45 ---- 20-24 Y ---- < 40 >45 ---- >24 Y ---- < 40 40-60 >60 . Performed By: #### L IPID #### [facility] [address] [place] [address] Cholesterol in LDL [Mass/Vol] 134 mg/dL High 0 - 99 [facility] Comment on above: Order Comment: PATIE NT FASTING Result Comment: . NEAR BORD AGE DESIRABLE OPTIMAL HIGH HIGH VERY HIGH 0-19 Y 0 - 109 --- 110-129 >/= 130 ---- 20-24 Y 0 - 119 --- 120-159 >/= 160 ---- >24 Y 0 - 99 100-129 130-159 160-189 >/=190 . Performed By: #### L IPID #### [facility] [address] [place] [address] Cholesterol in VLDL [Mass/Vol] 32 mg/dL Normal 0 - 40 [facility] Comment on above: Order Comment: PATIE NT FASTING Performed By: #### L IPID #### [facility] [address] [place] [address] Cholesterol.total/Lisbeth sterol in HDL [Mass ratio] 6.5 {ratio} Abnormal [facility] Comment on above: Order Comment: PATIE NT FASTING Result Comment: REF VALUES DESIRABLE < 3.4 HIGH RISK > 5.0 Performed By: #### L IPID #### [facility] [address] [place] [address] Triglyceride [Mass/Vol] 160 mg/dL High 0 - 149 [facility] Comment on above: Order Comment: PATIE NT [...] Performed By: #### L IPID #### [facility] [address] [place] [address] Laboratory - Chemistry and C hemistry - challengeon 06-07-2022 Anion gap [Moles/Vol] 13 mmol/L 10 - 20 - [facility] Work Phone: Calcium [Mass/Vol] 9.9 mg/dL 8.6 - 10.6 -[facility] Work Phone: Chloride [Moles/Vol] 103 mmol/L 98 - 107 MP-S elect [facility] Work Phone: CO2 [Moles/Vol] 26 mmol/L 21 - 32 -[facility] Work Phone: Creatinine [Mass/Vol] 1.33 mg/dL above high threshold See Below [facility] Work Phone: Comment on above: Reference Range: 0.5 0 - 1.30 Glucose [Mass/Vol] 177 mg/dL above high threshold 74 - 99 -[facility] Work Phone: Potassium [Moles/Vol] 5.3 mmol/L 3.5 - 5.3 - [facility] Work Phone: Sodium [Moles/Vol] 137 mmol/L 136 - 145 -[facility] Work Phone: Urea nitrogen [Mass/Vol] 31 mg/dL above high threshold 6 - 23 -[facility] Work Phone: Lipid Panelon 06-07-2022 Cholesterol [Mass/Vol] 196 mg/dL 0 - 199 -[facility] Work Phone: Comment on above: . [...] Cholesterol in HDL [Mass/Vol] 30.1 mg/dL Abnormal [facility] Work Phone: Comment on above: . AGE VERY LOW LOW N ORMAL HIGH 0-19 Y < 35 < 40 40-45 ---- 20-24 Y ---- < 40 >45 ---- >24 Y ---- < 40 40-60 >60. Cholesterol in LDL [Mass/Vol] 134 mg/dL above high threshold 0 - 99 [facility] Work Phone: Comment on above: . NEAR BORD AGE PATRICIA RABLE OPTIMAL HIGH HIGH VERY HIGH 0-19 Y 0 - 109 --- 110-129 >/= 130 ---- 20-24 Y 0 - 119 --- 120-159 >/= 160 ---- >24 Y 0 - 99 100-129 130-159 160-189 >/=190. Cholesterol.total/Lisbeth sterol in HDL [Mass ratio] 6.5 {ratio} Abnormal [facility] Work Phone: Comment on above: REF VALUESDESIRABLE < 3.4HIGH RISK > 5.0 Triglyceride [Mass/Vol] 160 mg/dL above hi gh threshold 0 - 149 [facility] Work Phone: Comment on above: . [...] Lipid Panel 32 mg/dL 0 - 40 [facility] Work Phone: No Panel Informationon 06-07 59 {mL/min/1.73m2} Abnormal >90 [facility] Work Phone: Comment on above: CALCULATIONS OF KHADAR MATED GFR ARE PERFORMED USING THE 2020 CKD-EPI STUDY REFIT EQUATION WITHOUT THE RACE VARIABLE FOR THE IDMS-TRACEABLE CREATININE METHODS.https://jasn.asnjournals.org/content/early// ASN.8970695143 Blood Pressure Cuff Sizeon 0 01-18-2022 Fall risk assessment a) No falls within the last year [facility] Work Phone: Tobacco use status [facility] b) No M [facility] Work Phone: Blood Pressure Cuff Size Adult [facility] Work Phone: IO Hgb A1Con 07-22-2022 HbA1c (Bld) [Mass fraction] 7.1 % 4.2-6.5% -[facility] Work Phone: Office Visit (Internal Medic ine)on 01-18-2022 Follow-up visit Diagnoses/Problems Assessed Type 2 diabetes mellitus (250.00) (E11.9) HTN (hypertension) (401.9) (I10) Orders HTN (hypertension) Renew: Lisinopril 10 MG Oral Tablet; Take 1 tablet daily Rx By: Jaylon Ulloa; Dispense: 0 Days ; #:90 Tablet; Refill: 3;For: HTN (hypertension); YADI = N; Verified [facility]; Last Updated By: Cliff Promoboxx; 01/18/2022 1:36:13 PM Type 2 diabetes mellitus Renew: Basaglar KwikPen 100 UNIT/ML Subcutaneous Solution Pen-injector; INJECT 15 UNIT Daily Rx By: Jaylon Ulloa; Dispense: 90 Days ; #:1 X 5 x 3 ML Pen; Refill: 3;For: Type 2 diabetes mellitus; YADI = N; Verified Transmission to [facility]; Last Updated By: [facility]; 01/18/2022 1:36:13 PM Basic Metabolic Panel; Status:Active; Requested for:[id number]; Perform:Lab Services - Lab To Draw (Blood Test); Due:18Apr2022;Ordered ; For:Type 2 diabetes mellitus; Ordered By:Jaylon Ulloa; Renew: BD Pen Needle Sadaf U/F 32G X 4 MM; uses 1 daily Rx By: Jaylon Ulloa; Dispense: 0 Days ; #:1 X 100 Unit Box; Refill: 3;For: Type 2 diabetes mellitus; YADI = N; Verified Transmission to [facility]; Last Updated By: Shoutlet; 01/18/2022 1:36:15 PM Hemoglobin A1C; Status:Active; Requested for:[id number]; Perform:Lab Services - Lab To Draw (Blood Test); Due:18Apr2022;Ordered ; For:Type 2 diabetes mellitus; Ordered By:Jaylon Ulloa; Renew: metFORMIN HCl ER 500 MG Oral Tablet Extended Release 24 Hour; TAKE 1 TABLET 3 times daily Rx By: Jaylon Ulloa; Dispense: 90 Days ; #:270 Tablet; Refill: 3;For: Type 2 diabetes mellitus; YADI = N; Verified Transmission to [facility]; Last Updated By: Allison Coronado; 01/18/2022 1:36:16 PM IO Hgb A1C; Status:Resulted - Requires Verification; Done: [id number] 11:32AM Performed:In Office; Due:18Apr2022; Last Updated By:Nakia Buckley; 01/18/2022 11:32:48 AM;Ordered; For:Type 2 diabetes mellitus; Ordered By:Jaylon Ulloa; Renew: OneTouch Delica Plus [id number]; Use 3 times daily as directed Rx By: Jaylon Ulloa; Dispense: 0 Days ; #:3 X 100 Unit Box; Refill: 3;For: Type 2 diabetes mellitus; YADI = N; Verified Transmission [facility]; Msg to Pharmacy: e11.9 on insulin; Last Updated By: Allison Coronado; 01/18/2022 1:36:12 PM Lipid Panel; Status:Active; Requested for:[id number]; Perform:Lab Services - Lab To Draw (Blood Test); Due:18Apr2022;Ordered ; For:Type 2 diabetes mellitus; Ordered By:Jaylon Ulloa; Renew: OneTouch Ultra In Vitro Strip; USE TO TEST BLOOD GLUCOSE LEVELS 3 TIMES A DAY Rx By: Jaylon Ulloa; Dispense: 0 Days ; #:3 X 100 Strip Box; Refill: 3;For: Type 2 diabetes mellitus; YADI = N; Verified Transmission [facility]; Msg to Pharmacy: e11.9 on insulin; Last Updated By: Allison Coronado; 01/18/2022 1:36:12 PM Formulary Override Reason: Drug has been unsuccessful in the past Renew: Repaglinide 2 MG Oral Tablet; TAKE 1 TABLET BY MOUTH THREE TIMES DAILY Rx By: Jaylon Ulloa; Dispense: 90 Days ; #:270 Tablet; Refill: 3;For: Type 2 diabetes mellitus; YADI = N; Verified Transmission [facility]; Last Updated By: Allison Coronado; 01/18/2022 1:36:10 PM Patient Discussion/Summary same meds follow 5 monthds see saji gonzalez 2021 Provider Impressions bp/ dm clin fine high cor art calcium score ....to see cards. Chief Complaint dm / bp follow up History of Present Illnesscards appt. 2021 dr majano ([facility]) r. arm issue resolved hgm fbs [...] Allergies Medication Pioglitazone HCl TABS Recorded By: Jaylon Ulloa; 07/20/2018 9:13:49 AM Sulfa Drugs Recorded By: Jaylon Ulloa; 10/26/2013 1:04:52 PM Tradjenta TABS Recorded By: Jaylon Ulloa; 04/22/ (more content not included)... Normal [facility] Touchworks Activated partial thrombopla stin time (aPTT) in platelet poor plasma by coagulation aOrdered By: Darien Florentino on 12-07-2021 aPTT Coag (PPP) [Time] 33.3 s 25.1-36.5 [facility] Albumin [Mass/volume] in Ser um or PlasmaOrdered By: Darien Florentino on 12-07-2021 Albumin [Mass/Vol] 4.4 g/dL 3.2-5.5 [facility] Basophils Auto (Bld) [#/Vol] Ordered By: Darien Florentino on 12-07-2021 Basophils (Bld) [#/Vol] 0.1 10*3/uL 0.0-0.2 [facility] Basophils/100 WBC Auto (Bld) Ordered By: Darien Florentino on 12-07-2021 Basophils/100 WBC (Bld) 0.8 % [facility] Blood hemoglobin measurement (mass/volume)Ordered By: Darien Florentino on 12-07-2021 Hemoglobin (Bld) [Mass/Vol] 13.5 g/dL 13.0-17.0 [facility] Blood leukocytes automated c ount (number/volume)Ordered By: Darien Florentino on 12-07-2021 WBC (Bld) [#/Vol] 6.9 10*3/uL 4.5-11.0 [facility] Creatinine and Glomerular fi ltration rate.predicted panel (S/P/Bld)Ordered By: Darien Florentino on 12-07-2021 Creatinine [Mass/Vol] 1.27 mg/dL 0.64-1.27 [facility] Eosinophils Auto (Bld) [#/Vo l]Ordered By: Darien Florentino on 12-07-2021 Eosinophils (Bld) [#/Vol] 0.5 10*3/uL 0.0-0.45 [facility] Eosinophils/100 WBC Auto (Bl d)Ordered By: Darien Florentino on 12-07-2021 Eosinophils/100 WBC (Bld) 6.6 % [facility] Erythrocyte distribution wid th Auto (RBC) [Ratio]Ordered By: Darien Florentino on 12-07-2021 Erythrocyte distribution width (RBC) [Ratio] 13.1 % 12.0-14.8 [facility] Estimated glomerular filtrat ion rate (GFR) non- AmericanOrdered By: Darien Florentino on 12-07-2021 GFR/1.73 sq M.predicted among non-blacks MDRD (S/P/Bld) [Vol rate/Area] 57 mL/Min [facility] Globulin Calc (S) [Mass/Vol] Ordered By: Darien Florentino on 12-07-2021 Globulin (S) [Mass/Vol] 3.1 g/dL [facility] Hematocrit Auto (Bld) [Volum e fraction]Ordered By: Darien Florentino on 12-07-2021 Hematocrit (Bld) [Volume fraction] 40.2 % 38.8-50.0 [facility] Laboratory - CoagulationOrde red By: Darien Florentino on 12-07-2021 PT Coag (PPP) [Time] 12.5 s 9.0-12.9 [facility] Laboratory - Hematology and Cell countsOrdered By: Darien Florentino on 12-07-2021 Nucleated RBC/100 WBC (Bld) [Ratio] 0.1 % 0-0.5 [facility] Lymphocytes Auto (Bld) [#/Vo l]Ordered By: Darien Florentino on 12-07-2021 Lymphocytes (Bld) [#/Vol] 2.6 10*3/uL 1.00-4.8 [facility] Lymphocytes/100 WBC Auto (Bl d)Ordered By: Darien Florentino on 12-07-2021 Lymphocytes/100 WBC (Bld) 36.8 % [facility] MCH Auto (RBC) [Entitic mass ]Ordered By: Darien Florentino on 12-07-2021 MCH (RBC) [Entitic mass] 30.2 pg 27.5-35.2 [facility] MCHC Auto (RBC) [Mass/Vol]Or dered By: Darien Florentino on 12-07-2021 MCHC (RBC) [Mass/Vol] 33.6 g/dL 32.5-35.6 [facility] MCV Auto (RBC) [Entitic vol] Ordered By: Darien Florentino on 12-07-2021 MCV (RBC) [Entitic vol] 89.9 fL 83.5-101 F [facility] Monocytes Auto (Bld) [#/Vol] Ordered By: Darien Florentino on 12-07-2021 Monocytes (Bld) [#/Vol] 0.5 10*3/uL 0.0-0.8 [facility] Monocytes/100 WBC Auto (Bld) Ordered By: Darien Florentino on 12-07-2021 Monocytes/100 WBC (Bld) 6.8 % F [facility] Neutrophils Auto (Bld) [#/Vo l]Ordered By: Darien Florentino on 12-07-2021 Neutrophils (Bld) [#/Vol] 3.4 10*3/uL 1.8-7.7 [facility] Neutrophils/100 WBC Auto (Bl d)Ordered By: Darien Florentino on 12-07-2021 Neutrophils/100 WBC (Bld) 49.0 % [facility] No Panel InformationOrdered By: Darien Florentino on 12-07-2021 Estimated GFR () > 60 mL/Min [facility] Comment on above: GFR estimated refere nce range: According to KDOQI guidelines, <60 ml/min/1.73m2 is sufficient to diagnose a patient with chronic kidney disease. Pharmacy Creatinine Clearance (Chem 65.08 [facility] Platelet mean volume Auto (B ld) [Entitic vol]Ordered By: Darien Florentino on 12-07-2021 Platelet mean volume (Bld) [Entitic vol] 9.0 fL 6.6-10.1 [facility] Platelet poor plasma interna tional normalized ratio (INR) by coagulation assay (relatOrdered By: Darien Florentino on 12-07-2021 INR Coag (PPP) [Relative time] 1.1 {INR} [facility] Comment on above: INR Therapeutic Rang e [...] 12-07-2021 Platelets (Bld) [#/Vol] 189 10*3/uL 150-450 [facility] Protein [Mass/volume] in Ser um or PlasmaOrdered By: Darien Florentino on 12-07-2021 Protein [Mass/Vol] 7.5 g/dL 6.1-7.9 [facility] RBC Auto (Bld) [#/Vol]Ordere d By: Darien Florentino on 12-07-2021 RBC (Bld) [#/Vol] 4.48 10*6/uL 3.90-5.60 [facility] Serum or plasma alanine crawley otransferase measurement without P-5'-P (enzymatic activiOrdered By: Darien Florentino on 12-07-2021 ALT No additional P-5'-P [Catalytic activity/Vol] 74 U/L 10-60 [facility] Serum or plasma albumin/glob ulin mass ratioOrdered By: Darien Florentino on 12-07-2021 Albumin/Globulin [Mass ratio] 1.4 {ratio} [facility] Serum or plasma alkaline laurita sphatase measurement (enzymatic activity/volume)Ordered By: Darien Florentino on 12-07-2021 ALP [Catalytic activity/Vol] 50 U/L 32-92 [facility] Serum or plasma aspartate am inotransferase measurement (enzymatic activity/volume)Ordered By: Darien Florentino on 12-07-2021 AST [Catalytic activity/Vol] 38 U/L 10-42 [facility] Serum or plasma calcium vida urement (mass/volume)Ordered By: Darien Florentino on 12-07-2021 Calcium [Mass/Vol] 10.3 mg/dL 8.2-10.2 [facility] Serum or plasma chloride jennifer surement (moles/volume)Ordered By: Darien Florentino on 12-07-2021 Chloride [Moles/Vol] 101 mmol/L 95-114 [facility] Serum or plasma glucose vida urement (mass/volume)Ordered By: Darien Florentino on 12-07-2021 Glucose [Mass/Vol] 178 mg/dL 70-100 [facility] Comment on above: ADA recommended refe rence range Random Glucose Reference Range is dependent on time and content of last meal. Glucose of more than 200 mg/dL in a nonstressed, ambulatory subject supports the diagnosis of Diabetes Mellitus. Serum or plasma potassium me asurement (moles/volume)Ordered By: Darien Florentino on 12-07-2021 Potassium [Moles/Vol] 4.6 mmol/L 3.5-5.1 [facility] Serum or plasma sodium measu rement (moles/volume)Ordered By: Darien Florentino on 12-07-2021 Sodium [Moles/Vol] 136 mmol/L 136-146 [facility] Serum or plasma total biliru bin measurement (mass/volume)Ordered By: Darien Florentino on 12-07-2021 Bilirubin [Mass/Vol] 0.5 mg/dL 0.3-1.2 [facility] Serum or plasma total carbon dioxide measurement (moles/volume)Ordered By: Darien Florentino on 12-07-2021 CO2 [Moles/Vol] 25.7 mmol/L 22.0-30.0 [facility] Serum or plasma urea nitroge n measurement (mass/volume)Ordered By: Darien Florentino on 12-07-2021 Urea nitrogen [Mass/Vol] 22 mg/dL 9-23 [facility] Troponin I.cardiac [Mass/vol ume] in Serum or Plasma by High sensitivity methodOrdered By: Darien Florentino on 12-07-2021 Troponin I.cardiac High sensitivity method [Mass/Vol] 5 pg/mL 0-20 [facility] [address] CARDIAC SCORINGon 022 CT CARDIAC SCORING Patient Name: GRETEL BAINS STUDY: CT CARDIAC SCORING; 10/22/2021 12:08 pm INDICATION: none E78.00: Hypercholesteremia. COMPARISON: None. ACCESSION NUMBER(S): [id number] ORDERING CLINICIAN: JAYLON ULLOA TECHNIQUE: Using prospective ECG gating, CT [...] coronary heart disease events. According to the [place] [employer] Clinical Expert Consensus [...] modify other non-lipid coronary risk factors. Reference: Cally P et al. Circulation. 2007; 115:402-426 Electronically signed by: YASMANI RYDER MD Normal [facility] CT Cardiac Scoringon 022 CT Cardiac Scoring Normal [facility] Work Phone: Office Visit (Internal Medic ine)on 07-20-2021 Follow-up visit Diagnoses/Problems Assessed Hypercholesteremia (272.0) (E78.00) Type 2 diabetes mellitus (250.00) (E11.9) Orders HTN (hypertension) Continue: Lisinopril 10 MG Oral Tablet; Take 1 tablet daily Rx By: Jaylon Ulloa; Dispense: 0 Days ; #:90 Tablet; Refill: 3;For: HTN (hypertension); YADI = N; Verified Transmission to [id number]; Last Updated By: Nakia Buckley; 07/20/2021 8:55:[address] Cardiac Scoring; Status:Hold For - Scheduling; Requested for:20Jul2021; Perform:[facility] Imaging; Due:18Oct2021;Ordered ; For:Hypercholesteremi a; Ordered By:Jaylon Ulloa; Patient taking Metformin or Derivatives? : Yes Radiologist to Determine Optimal Study : Y What are the patient's signs and symptoms? : none Type 2 diabetes mellitus Continue: Basaglar KwikPen 100 UNIT/ML Subcutaneous Solution Pen-injector; INJECT 15 UNIT Daily Rx By: Jaylon Ulloa; Dispense: 90 Days ; #:1 X 5 x 3 ML Pen; Refill: 3;For: Type 2 diabetes mellitus; YADI = N; Print Rx; Last Updated By: Nakia Buckley; 07/20/2021 8:55:03 AM Continue: BD Pen Needle Sadaf U/F 32G X 4 MM; uses 1 daily Rx By: Jaylon Ulloa; Dispense: 0 Days ; #:1 X 100 Unit Box; Refill: 3;For: Type 2 diabetes mellitus; YADI = N; Verified Transmission to [facility] [id number]; Last Updated By: Nakia Buckley; 07/20/2021 8:55:03 AM Continue: metFORMIN HCl ER 500 MG Oral Tablet Extended Release 24 Hour; TAKE 1 TABLET 3 times daily Rx By: Jaylon Ulloa; Dispense: 90 Days ; #:270 Tablet; Refill: 3;For: Type 2 diabetes mellitus; YADI = N; Verified Transmission to [facility] [address]; Last Updated By: Nakia Buckley; 07/20/2021 8:55:03 AM Continue: OneTouch Delica Plus [id number]; Use 3 times daily as directed Rx By: Jaylon Ulloa; Dispense: 0 Days ; #:3 X 100 Unit Box; Refill: 3;For: Type 2 diabetes mellitus; YADI = N; Print Rx; Msg to Pharmacy: e11.9 on insulin; Last Updated By: Nakia Buckley; 07/20/2021 8:55:03 AM Continue: OneTouch Ultra In Vitro Strip; USE TO TEST BLOOD GLUCOSE LEVELS 3 TIMES A DAY Rx By: Jaylon Ulloa; Dispense: 0 Days ; #:1 X 100 Strip Box; Refill: 5;For: Type 2 diabetes mellitus; YADI = N; Print Rx; Msg to Pharmacy: e11.9 on insulin; Last Updated By: Nakia Buckley; 07/20/2021 8:55:03 AM Continue: Repaglinide 2 MG Oral Tablet; TAKE 1 TABLET BY MOUTH THREE TIMES DAILY Rx By: Jaylon Ulloa; Dispense: 90 Days ; #:270 Tablet; Refill: 3;For: Type 2 diabetes mellitus; YADI = N; Verified Transmission to [facility] [id number]; Last Updated By: Nakia Buckley; 07/20/2021 8:55:03 [...] Allergies Medication Pioglitazone HCl TABS Recorded By: Jaylon Ulloa; 07/20/2018 9:13:49 AM Sulfa Drugs Recorded By: Jaylon Ulloa; 10/26/2013 1:04:52 PM Tradjenta TABS Recorded By: Jaylon Ulloa; 04/22/2014 9:44:40 AM Welchol Recorded By: Jaylon Ulloa; 03/23/2018 10:18:16 AM Zetia TABS Recorded By: Jaylon Ulloa; 07/25/2017 9:02:00 AM Current Meds Medication NameInstruction Basaglar KwikPen 100 UNIT/ML Subcutaneous Solution Pen-injectorINJECT 15 UNIT Daily BD Pen Needle Sadaf U/F 32G X 4 MMuses 1 daily Lisinopril 10 MG Oral TabletTake 1 tablet daily metFORMIN HCl ER 500 MG Oral Tablet Extended Release 24 HourTAKE 1 TABLET 3 times daily OneTouch Delica Plus [id number] 3 times daily as directed OneTouch Ultra In Vitro StripUSE TO TEST BLOOD GLUCOSE LEVELS 3 TIMES A DAY (more content not included)... Normal [employer] BASIC METABOLIC PANELon 12-2 Anion gap [Moles/Vol] 14 mmol/L Normal 10 - 20 [facility] Comment on above: Performed By: #### B MP #### [facility] [address] [place] [address] Calcium [Mass/Vol] 9.9 mg/dL Normal 8.6 - 10.6 [facility] Comment on above: Performed By: #### B MP #### [facility] [address] [place] [address] Chloride [Moles/Vol] 101 mmol/L Normal 98 - 107 [facility] Comment on above: Performed By: #### B MP #### [facility] [address] [place] [address] Creatinine [Mass/Vol] 1.25 mg/dL Normal 0.50 - 1.30 [facility] Comment on above: Performed By: #### B MP #### [facility] [address] [place] [address] GFR- AM. 70 mL/min/1.73m2 Normal >60 [facility] Comment on above: Result Comment: CALC ULATIONS OF ESTIMATED GFR ARE PERFORMED USING THE MDRD STUDY EQUATION FOR THE IDMS-TRACEABLE CREATININE METHODS. CLIN CHEM 2007;53:766-72 Performed By: #### B MP #### [facility] [address] [place] [address] GFR-NON AM. 58 mL/min/1.73m2 Abnormal >60 [facility] Comment on above: Performed By: #### B MP #### [facility] [address] [place] [address] Glucose [Mass/Vol] 186 mg/dL High 74 - 99 [facility] Comment on above: Performed By: #### B MP #### [facility] [address] [place] [address] HCO3 (Bld) [Moles/Vol] 28 mmol/L Normal 21 - 32 [facility] Comment on above: Performed By: #### B MP #### [facility] [address] [place] [address] Potassium [Moles/Vol] 4.8 mmol/L Normal 3.5 - 5.3 [facility] Comment on above: Performed By: #### B MP #### [facility] [address] [place] [address] Sodium [Moles/Vol] 138 mmol/L Normal 136 - 145 [facility] Comment on above: Performed By: #### B MP #### [facility] [address] [place] [address] Urea nitrogen [Mass/Vol] 21 mg/dL Normal 6 - 23 [facility] Comment on above: Performed By: #### B MP #### [facility] [address] [place] [address] HEMOGLOBIN A1Con 06-25-2021 Glucose [Mass/Vol] 163 mg/dL Normal [facility] Comment on above: Performed By: #### H BA1E #### [facility] [address] [place] [address] HbA1c (Bld) [Mass fraction] 7.3 % Abnormal [facility] Comment on above: Result Comment: Diag nosis of Diabetes-Adults Non-Diabetic: < or = 5.6% Increased risk for developing diabetes: 5.7-6.4% Diagnostic of diabetes: > or = 6.5% . Monitoring of Diabetes Age (y) Therapeutic Goal (%) Adults: >18 <7.0 Pediatrics: 13-18 <7.5 7-12 <8.0 0- 6 7.5-8.5 [place] Diabetes Association. Diabetes Care 33(S1), Jun 2009. Performed By: #### H BA1E #### [facility] [address] [place] [address] Hemoglobin A1Con 06-25-2021 Glucose [Mass/Vol] 163 mg/dL [facility] Work Phone: HbA1c (Bld) [Mass fraction] 7.3 % Abnormal [facility] Work Phone: Comment on above: Diagnosis of Diabete s-Adults Non-Diabetic: < or = 5.6% Increased risk for developing diabetes: 5.7-6.4% Diagnostic of diabetes: > or = 6.5%. Monitoring of Diabetes Age (y) Therapeutic Goal (%) Adults: >18 <7.0 Pediatrics: 13-18 <7.5 7-12 <8.0 0- 6 7.5-8.5 Citizen [place] Diabetes Association. Diabetes Care 33(S1), Jun 2009. LIPID PANEL (CORONARY RISK 2 )on 06-25-2021 Cholesterol [Mass/Vol] 218 mg/dL High 0 - 199 [facility] Comment on above: Result Comment: . AGE [...] guidelines reference: NCEP ATPIII Guidelines, DARINEL 2001, 258:2746-97 . Venipuncture immediately after or during the administration of Metamizole may lead to falsely low results. Testing should be performed immediately prior to Metamizole dosing. Performed By: #### L IPID #### [facility] [address] [place] [address] Cholesterol in HDL [Mass/Vol] 28.6 mg/dL Abnormal [facility] Comment on above: Result Comment: . AGE VERY LOW LOW NORMAL HIGH 0-19 Y < 35 < 40 40-45 ---- 20-24 Y ---- < 40 >45 ---- >24 Y ---- < 40 40-60 >60 . Performed By: #### L IPID #### [facility] [address] [place] [address] Cholesterol in LDL [Mass/Vol] 140 mg/dL High 0 - 99 [facility] Comment on above: Result Comment: . NEAR BORD AGE DESIRABLE OPTIMAL HIGH HIGH VERY HIGH 0-19 Y 0 - 109 --- 110-129 >/= 130 ---- 20-24 Y 0 - 119 --- 120-159 >/= 160 ---- >24 Y 0 - 99 100-129 130-159 160-189 >/=190 . Performed By: #### L IPID #### [facility] [address] [place] [address] Cholesterol in VLDL [Mass/Vol] 49 mg/dL High 0 - 40 [facility] Comment on above: Performed By: #### L IPID #### [facility] [address] [place] [address] Cholesterol.total/Lisbeth sterol in HDL [Mass ratio] 7.6 {ratio} Abnormal [facility] Comment on above: Result Comment: REF VALUES DESIRABLE < 3.4 HIGH RISK > 5.0 Performed By: #### L IPID #### [facility] [address] [place] [address] NON-HDL CHOLESTEROL 189 mg/dL Normal [facility] Comment on above: Result Comment: AGE DESIRABLE BORDERLINE HIGH HIGH VERY HIGH 0-19 Y 0 - 119 120 - 144 >/= 145 >/= 160 20-24 Y 0 - 149 150 - 189 >/= 190 ---- >24 Y 30 MG/DL ABOVE LDL CHOLESTEROL GOAL . Performed By: #### L IPID #### [facility] [address] [place] [address] Triglyceride [Mass/Vol] 247 mg/dL High 0 - 149 [facility] Comment on above: Result Comment: . AGE [...] Performed By: #### L IPID #### [facility] [address] [place] [address] Laboratory - Chemistry and C hemistry - challengeon 06-25-2021 Anion gap [Moles/Vol] 14 mmol/L 10 - 20 - [facility] Work Phone: Calcium [Mass/Vol] 9.9 mg/dL 8.6 - 10.6 -Juliane ect [facility] Work Phone: Chloride [Moles/Vol] 101 mmol/L 98 - 107 -S elect [facility] Work Phone: CO2 [Moles/Vol] 28 mmol/L 21 - 32 -[facility] Work Phone: Creatinine [Mass/Vol] 1.25 mg/dL See Below - [facility] Work Phone: Comment on above: Reference Range: 0.5 0 - 1.30 Glucose [Mass/Vol] 186 mg/dL above high threshold 74 - 99 -[facility] Work Phone: Potassium [Moles/Vol] 4.8 mmol/L 3.5 - 5.3 - [facility] Work Phone: Sodium [Moles/Vol] 138 mmol/L 136 - 145 -[facility] Work Phone: Urea nitrogen [Mass/Vol] 21 mg/dL 6 - 23 -[facility] Work Phone: Lipid Panelon 06-25-2021 Cholesterol [Mass/Vol] 218 mg/dL above hig h threshold 0 - 199 -[facility] Work Phone: Comment on above: . [...] Cholesterol in HDL [Mass/Vol] 28.6 mg/dL Abnormal -[facility] Work Phone: Comment on above: . AGE VERY LOW LOW N ORMAL HIGH 0-19 Y < 35 < 40 40-45 ---- 20-24 Y ---- < 40 >45 ---- >24 Y ---- < 40 40-60 >60. Cholesterol in LDL [Mass/Vol] 140 mg/dL above high threshold 0 - 99 -[facility] Work Phone: Comment on above: . NEAR BORD AGE PATRICIA RABLE OPTIMAL HIGH HIGH VERY HIGH 0-19 Y 0 - 109 --- 110-129 >/= 130 ---- 20-24 Y 0 - 119 --- 120-159 >/= 160 ---- >24 Y 0 - 99 100-129 130-159 160-189 >/=190. Cholesterol non HDL [Mass/Vol] 189 mg/dL -[facility] Work Phone: Comment on above: AGE DESIRABLE BORDER LINE HIGH HIGH VERY HIGH 0-19 Y 0 - 119 120 - 144 >/= 145 >/= 160 20-24 Y 0 - 149 150 - 189 >/= 190 ---- >24 Y 30 MG/DL ABOVE LDL CHOLESTEROL GOAL. Cholesterol.total/Lisbeth sterol in HDL [Mass ratio] 7.6 {ratio} Abnormal [facility] Work Phone: Comment on above: REF VALUESDESIRABLE < 3.4HIGH RISK > 5.0 Triglyceride [Mass/Vol] 247 mg/dL above hi gh threshold 0 - 149 [facility] Work Phone: Comment on above: . [...] mg/dL above high threshold 0 - 40 [employer] [facility] Work Phone: No Panel Informationon 06-25 70 {mL/min/1.73m2} >60 [facility] Work Phone: Comment on above: CALCULATIONS OF KHADAR MATED GFR ARE PERFORMED USING THE MDRD STUDY EQUATION FOR THE IDMS-TRACEABLE CREATININE METHODS. CLIN CHEM 2007;53:766-72 58 {mL/min/1.73m2} Abnormal >60 -[facility] Work Phone: PROSTATE SPEC.AG,SCREENon PROSTATE SPEC.AG,SCREEN 2.61 ng/mL Normal 0.00 - 4.00 [facility] Comment on above: Result Comment: The FDA requires that the method used for PSA assay be reported to the physician. Values obtained with different assay methods must not be used interchangeably. This test was performed at [facility] using the Siemens Atellica PSA method, which is a sandwich immunoassay using chemiluminescence for quantitation. The assay is approved for measurement of prostate-specific antigen (PSA) in serum and may be used in conjunction with a digital rectal examination in men 50 years and older as an aid in detection of prostate cancer. 6-Srfyk-nytqfbynt inhibitors (e.g. Proscar, Finasteride, Avodart, Dutasteride and Michelle) for the treatment of BPH have been shown to lower PSA levels by an average of 50% after 6 months of treatment. Performed By: #### P [facility] #### [facility] [address] [place] [address] Prostate Spec.Ag, Screenon 1 08-26-2020 Prostate specific Ag [Mass/Vol] 2.61 ng/mL See Below [facility] Work Phone: Comment on above: Reference Range: 0.0 0 - 4.00The FDA requires that the method used for PSA assay be reported to the physician. Values obtained with different assay methods must not be used interchangeably. This test was performed at [facility] using the SiemensAtellica PSA method, which is a sandwich immunoassay using chemiluminescence for quantitation. The assay is approvedfor measurement of prostate-specific antigen (PSA) in serum and may be used in conjunction with a digital rectalexamination in men 50 years and older as an aid in detection of prostate cancer. 9-Sneiz-lrhdhtxof inhibitors (e.g. Proscar, Finasteride, Avodart, Dutasteride and Michlele) for the treatment of BPH have been shown to lower PSA levels by an average of 50% after 6 months of treatment. Blood Pressure Cuff Sizeon 0 03-07-2021 Tobacco use status CPHS b) No M -[place] [address] DO Work Phone: Blood Pressure Cuff Size Adult [place] [address] DO Work Phone: Blood Pressure Cuff Sizeon 0 03-01-2021 Blood Pressure Cuff Size Adult [facility] Work Phone: IO Hgb A1Con 09-02-2021 HbA1c (Bld) [Mass fraction] 6.8 % 4.4-6.4% [facility] Work Phone: IO glucose, blood, finger st ick via hand held monitoron 03-01-2021 Glucose [Mass/Vol] 121 mg/dL [facility] Work Phone: Vital Signs Date Time Vital Sign Value Performing Clinician Facility 12-22-2023 08:41-0400 Body height 175.26 cm DO Светлана Mast Work Phone: [facility] 12-22-2023 08:41-0400 Body mass index (BMI) [Ratio] 29.5 kg/m2 DO Светлана Mast Work Phone: [facility] 12-22-2023 08:41-0400 Body temperature 96.8 [degF] DO Светлана Mast Work Phone: [facility] 12-22-2023 08:41-0400 Body weight 90.88 kg DO Светлана Mast Work Phone: [facility] 12-22-2023 08:41-0400 Diastolic blood pressure 70 mm[Hg] DO Светлана Mast Work Phone: [facility] 12-22-2023 08:41-0400 Heart rate 56 /min DO Светлана Mast Work Phone: [facility] 12-22-2023 08:41-0400 SaO2% (BldA) [Mass fraction] 97 % DO Светлана Mast Work Phone: [facility] 12-22-2023 08:41-0400 Systolic blood pressure 132 mm[Hg] DO Светлана Mast Work Phone: [facility] 10-16-2023 13:00-0400 Diastolic blood pressure 66 mm[Hg] DO Светлана Mast Work Phone: [facility] 10-16-2023 13:00-0400 Heart rate 54 /min DO Светлана Mast Work Phone: [facility] 10-16-2023 13:00-0400 Respiratory rate 16 /min DO Светлана Mast Work Phone: [facility] 10-16-2023 13:00-0400 SaO2% (BldA) [Mass fraction] 98 % DO Светлана Mast Work Phone: [facility] 10-16-2023 13:00-0400 Systolic blood pressure 136 mm[Hg] DO Светлана Mast Work Phone: [facility] 10-16-2023 12:08-0400 Body temperature 98 [degF] DO Светлана Mast Work Phone: [facility] 10-16-2023 11:43-0400 Inhaled oxygen flow rate 8 L/min DO Светлана Mast Work Phone: [facility] 10-16-2023 09:17-0400 Body height 175.26 cm DO Светлана Mast Work Phone: [facility] 10-16-2023 09:17-0400 Body mass index (BMI) [Ratio] 28.3 kg/m2 DO Светлана Mast Work Phone: [facility] 10-16-2023 09:17-0400 Body weight 87 kg DO Светлана Mast Work Phone: [facility] 09-18-2023 13:44-0400 Body height 177.8 cm [facility] 09-18-2023 13:44-0400 Body mass index (BMI) [Ratio] 29 kg/m2 [facility] 09-18-2023 13:44-0400 Body temperature 98.4 [degF] [facility] 09-18-2023 13:44-0400 Body weight 91.82 kg [facility] 09-18-2023 13:44-0400 Diastolic blood pressure 68 mm[Hg] [facility] 09-18-2023 13:44-0400 Heart rate 68 /min [facility] 09-18-2023 13:44-0400 SaO2% (BldA) [Mass fraction] 98 % [facility] 09-18-2023 13:44-0400 Systolic blood pressure 136 mm[Hg] [facility] 07-14-2023 08:45-0500 Body height 177.8 cm Светлана Mast Other [facility] 07-14-2023 08:45-0500 Body mass index (BMI) [Ratio] 29.97 kg/m2 Светлана Mast Other [facility] [employer] Other 07-14-2023 08:45-0500 Body weight 94.76 kg Светлана Mast Other [employer] Other 07-14-2023 08:45-0500 Body weight 94.75 kg [facility] 07-14-2023 08:45-0500 Diastolic blood pressure 72 mm[Hg] Светлана Mast Other [facility] 07-14-2023 08:45-0500 Respiratory rate 18 /min Светлана Mast Other [facility] [employer] Other 07-14-2023 08:45-0500 SaO2% (BldA) [Mass fraction] 96 % Светлана Mast Other [email or web address] [facility] [employer] Other 07-14-2023 08:45-0500 Systolic blood pressure 128 mm[Hg] Светлана Mast Other [facility] 06-04-2023 13:29-0500 Blood Pressure Location Devendra MINER [facility] 06-04-2023 13:29-0500 Diastolic blood pressure 83 mm[Hg] Devendra MINER [facility] 06-04-2023 13:29-0500 Heart rate 87 /min Devendra MINER [facility] 06-04-2023 13:29-0500 Respiratory rate 16 /min Devendra MINER [facility] 06-04-2023 13:29-0500 Systolic blood pressure 135 mm[Hg] Devendranilson MINER [facility] 06-02-2023 08:45-0500 Body height 177.8 cm Светлана Mast Other [employer] Other 06-02-2023 08:45-0500 Body mass index (BMI) [Ratio] 29.02 kg/m2 Светлана Mast Other [employer] Other 06-02-2023 08:45-0500 Body temperature 96.5 [degF] Светлана Mast Other [employer] Other 06-02-2023 08:45-0500 Body weight 91.76 kg Светлана Mast Other [employer] Other 06-02-2023 08:45-0500 Diastolic blood pressure 84 mm[Hg] Светлана Mast Other [employer] Other 06-02-2023 08:45-0500 SaO2% (BldA) [Mass fraction] 98 % Светлана Mast Other [employer] Other 06-02-2023 08:45-0500 Systolic blood pressure 124 mm[Hg] Светлана Mast Other [employer] Other 02-27-2023 09:00-0400 Body height 177.8 cm Светлана Mast Other [employer] Other 02-27-2023 09:00-0400 Body mass index (BMI) [Ratio] 29.02 kg/m2 Светлана Mast Other [employer] Other 02-27-2023 09:00-0400 Body temperature 96.9 [degF] Светлана Mast Other [employer] Other 02-27-2023 09:00-0400 Body weight 91.76 kg Светлана Mast Other [employer] Other 02-27-2023 09:00-0400 Diastolic blood pressure 72 mm[Hg] Светлана Mast Other [employer] Other 02-27-2023 09:00-0400 SaO2% (BldA) [Mass fraction] 97 % Светлана Mast Other [employer] Other 02-27-2023 09:00-0400 Systolic blood pressure 130 mm[Hg] Светлана Mast Other [employer] Other 01-27-2023 09:15-0400 Body height 177.8 cm Светлана Mast Other [employer] Other 01-27-2023 09:15-0400 Body mass index (BMI) [Ratio] 28.89 kg/m2 Светлана Mast Other [employer] Other 01-27-2023 09:15-0400 Body temperature 96.4 [degF] Светлана Mast Other [employer] Other 01-27-2023 09:15-0400 Body weight 91.36 kg Светлана Mast Other [employer] Other 01-27-2023 09:15-0400 Diastolic blood pressure 80 mm[Hg] Светлана Mast Other [employer] Other 01-27-2023 09:15-0400 SaO2% (BldA) [Mass fraction] 98 % Светлана Mast Other [employer] Other 01-27-2023 09:15-0400 Systolic blood pressure 134 mm[Hg] Светлана Mast Other [employer] Other 06-14-2022 09:03-0500 Body height 172.72 cm Jaylon Ulloa Work Phone: [employer] Work Phone: 06-14-2022 09:03-0500 Body mass index (BMI) [Ratio] 31.78 kg/m2 Jaylon Ulloa Work Phone: [employer] Work Phone: 06-14-2022 09:03-0500 Body surface area Derived from formula 2.08 m2 Jayoln Ulloa Work Phone: [employer] Work Phone: 06-14-2022 09:03-0500 Body temperature 97.4 [degF] Jaylon Ulloa Work Phone: [employer] Work Phone: 06-14-2022 09:03-0500 Body weight 94.8 kg Jaylon Ulloa Work Phone: [employer] Work Phone: 06-14-2022 09:03-0500 Diastolic blood pressure 62 mm[Hg] Jaylon Ulloa Work Phone: [employer] [facility] Work Phone: 06-14-2022 09:03-0500 Heart rate 73 /min Jaylon Ulloa Work Phone: [employer] [facility] Work Phone: 06-14-2022 09:03-0500 SaO2% (BldA) [Mass fraction] 97 % Jaylon Ulloa Work Phone: [employer] [facility] Work Phone: 06-14-2022 09:03-0500 Systolic blood pressure 120 mm[Hg] Jaylon Ulloa Work Phone: [employer] [facility] Work Phone: 01-18-2022 10:54-0400 Body height 172.72 cm Jaylon Ulloa Work Phone: [employer] [facility] Work Phone: 01-18-2022 10:54-0400 Body mass index (BMI) [Ratio] 30.87 kg/m2 Jaylon Ulloa Work Phone: [employer] [facility] Work Phone: 01-18-2022 10:54-0400 Body surface area Derived from formula 2.06 m2 Jaylon Ulloa Work Phone: [employer] [facility] Work Phone: 01-18-2022 10:54-0400 Body temperature 97.1 [degF] Jaylon Ulloa Work Phone: [employer] [facility] Work Phone: 01-18-2022 10:54-0400 Body weight 92.08 kg Jaylon Ulloa Work Phone: [employer] [facility] [employer] Work Phone: 01-18-2022 10:54-0400 Diastolic blood pressure 78 mm[Hg] Jaylon Ulloa Work Phone: [employer] [facility] Work Phone: 01-18-2022 10:54-0400 Heart rate 78 /min Jaylon Ulloa Work Phone: [employer] Work Phone: 01-18-2022 10:54-0400 SaO2% (BldA) [Mass fraction] 98 % Jaylon Ulloa Work Phone: [employer] Work Phone: 01-18-2022 10:54-0400 Systolic blood pressure 120 mm[Hg] Jaylon Ulloa Work Phone: [facility] Work Phone: 12-07-2021 09:37-0400 Body height 175.26 cm [facility] 12-07-2021 09:37-0400 Body mass index (BMI) [Ratio] 30.9 kg/m2 [facility] 12-07-2021 09:37-0400 Body temperature 98.2 [degF] [facility] 12-07-2021 09:37-0400 Body weight 95 kg [facility] 12-07-2021 09:37-0400 Diastolic blood pressure 90 mm[Hg] [facility] 12-07-2021 09:37-0400 Heart rate 57 /min [facility] 12-07-2021 09:37-0400 Respiratory rate 18 /min [facility] 12-07-2021 09:37-0400 SaO2% (BldA) [Mass fraction] 98 % [facility] 12-07-2021 09:37-0400 Systolic blood pressure 193 mm[Hg] [facility] 03-07-2021 08:35-0400 Body height 172.72 cm Jaylon Tomi Ulloa Work Phone: [facility] 102 DO Work Phone: 03-07-2021 08:35-0400 Body mass index (BMI) [Ratio] 31.47 kg/m2 Jaylon Ulloa Work Phone: [place] [address] DO Work Phone: 03-07-2021 08:35-0400 Body surface area Derived from formula 2.07 m2 Jaylon Ulloa Work Phone: [place] [address] DO Work Phone: 03-07-2021 08:35-0400 Body temperature 96.2 [degF] Jaylon Ulloa Work Phone: [place] [address] DO Work Phone: 03-07-2021 08:35-0400 Body weight 93.9 kg Jaylon Ulloa Work Phone: [facility] 102 DO Work Phone: 03-07-2021 08:35-0400 Diastolic blood pressure 60 mm[Hg] Jaylon Ulloa Work Phone: [facility] 102 DO Work Phone: 03-07-2021 08:35-0400 Heart rate 63 /min Jaylon Ulloa Work Phone: [facility] 102 DO Work Phone: 03-07-2021 08:35-0400 Respiratory rate 16 /min Jaylon Ulloa Work Phone: [place] [address] DO Work Phone: 03-07-2021 08:35-0400 SaO2% (BldA) [Mass fraction] 98 % Jaylon Ulloa Work Phone: [employer] [facility] 102 DO Work Phone: 03-07-2021 08:35-0400 Systolic blood pressure 140 mm[Hg] Jaylon Ulloa Work Phone: [employer] [facility] 102 DO Work Phone: 03-01-2021 09:57-0400 Body height 172.72 cm Jaylon Ulloa Work Phone: [employer] [facility] Work Phone: 03-01-2021 09:57-0400 Body mass index (BMI) [Ratio] 30.87 kg/m2 Jaylon Ulloa Work Phone: [employer] [facility] Work Phone: 03-01-2021 09:57-0400 Body surface area Derived from formula 2.06 m2 Jaylno Ulloa Work Phone: [employer] [facility] Work Phone: 03-01-2021 09:57-0400 Body temperature 97.1 [degF] Jaylon Ulloa Work Phone: [employer] [facility] Work Phone: 03-01-2021 09:57-0400 Body weight 92.08 kg Jaylon Ulloa Work Phone: [employer] [facility] Work Phone: 03-01-2021 09:57-0400 Diastolic blood pressure 80 mm[Hg] Jaylon Ulloa Work Phone: [employer] [facility] Work Phone: 03-01-2021 09:57-0400 Heart rate 73 /min Jaylon Ulloa Work Phone: [employer] [facility] Work Phone: 03-01-2021 09:57-0400 SaO2% (BldA) [Mass fraction] 99 % Jaylon Ulloa Work Phone: [employer] [facility] Work Phone: 03-01-2021 09:57-0400 Systolic blood pressure 150 mm[Hg] Jaylon Ulloa Work Phone: [employer] [facility] Work Phone: 07-15-2019 11:00-0500 BMI (Body Mass Index) 32.16 kg/m2 Jaylon Ulloa [employer] [facility] Work Phone: 07-15-2019 11:00-0500 Body Temperature 96.7 [degF] Jaylon Ulloa [facility] Work Phone: Comment on above: Method: Temporal 07-15-2019 11:00-0500 Body weight 95.94 kg Jaylon Ulloa [facility] Work Phone: 07-15-2019 11:00-0500 BP Diastolic 90 mm[Hg] Jaylon Ulloa [facility] Work Phone: Comment on above: Location: LUE; Position: Sitting 07-15-2019 11:00-0500 BP Systolic 150 mm[Hg] Jaylon Ulloa [facility] Work Phone: Comment on above: Location: LUE; Position: Sitting 07-15-2019 11:00-0500 BSA (Body Surface Area) 2.09 m2 Jaylon Ulloa [facility] Work Phone: 07-15-2019 11:00-0500 Height 172.72 cm Jaylon Ulloa [facility] Work Phone: 07-15-2019 11:00-0500 Pulse (Heart Rate) 87 /min Jaylon Nekl [facility] Work Phone: 07-15-2019 11:00-0500 Pulse Oximetry 98 % Jaylon Ulloa [facility] Work Phone: Comment on above: Source: RA Encounters Encounter Date Encounter Type Care Provider Facility Start: 12-30-2023 End: 12-30-2023 ambulatory Devendra MINER Facility:[facility] Start: 12-30-2023 End: 12-30-2023 Patient encounter procedure Devendra MINER [facility] Start: 12-25-2023 End: 12-25-2023 Patient encounter procedure DO Светлана Mast Work Phone: [facility] [employer] Work Phone: Start: 12-25-2023 End: 12-25-2023 ambulatory DO Светлана Mast Work Phone: [facility] Work Phone: Start: 12-22-2023 End: 12-22-2023 ambulatory DO Светлана Mast Work Phone: [facility] Work Phone: Start: 12-22-2023 End: 12-22-2023 Patient encounter procedure DO Светлана Mast Work Phone: [facility] Work Phone: Start: 11-05-2023 End: 11-05-2023 ambulatory Devendra MINER Facility:[facility] Start: 11-05-2023 End: 11-05-2023 Lab Drop off Devendra MINER [facility] Start: 11-05-2023 End: 11-05-2023 ambulatory Devendra MINER Facility: [facility] Start: 11-05-2023 End: 11-05-2023 Patient encounter procedure Devendra MINER [facility] Start: 10-20-2023 ambulatory Devendra Romero SCOTTY Picketti ty:ROBBI Ron Start: 10-17-2023 End: 10-17-2023 ambulatory Devendra Nick MINER Facility:[facility] [place] Start: 10-17-2023 End: 10-17-2023 Patient encounter procedure Devendra MINER [facility] Start: 10-16-2023 End: 10-16-2023 Admission to same day surgery center DO Светлана Mast Work Phone: [facility] [employer] Start: 10-16-2023 End: 10-16-2023 ambulatory DO Светлана Mast Work Phone: [facility] Work Phone: Start: 10-16-2023 End: 10-16-2023 ambulatory Devendra R MINER Facility:[id number] Start: 10-16-2023 End: 10-16-2023 Off-Site Devendra Romero MINER [facility] Start: 10-01-2023 ambulatory Devendra Picketti ty:ROBBI Ron Start: 09-18-2023 End: 09-18-2023 ambulatory [facility] Work Phone: Start: 09-18-2023 End: 09-18-2023 Patient encounter procedure [facility] [place] Work Phone: Start: 09-15-2023 ambulatory Devendra Picketti ty:ROBBI [place] Start: 09-11-2023 ambulatory Devendra Picketti ty:[id number] Start: 07-14-2023 End: 07-14-2023 ambulatory Светлана Mast Other [employer] Other Start: 07-14-2023 Office outpatient vi sit 25 minutes Светлана Mast [facility] [place] Start: 07-14-2023 End: 07-14-2023 Patient encounter procedure [facility] Work Phone: Start: 07-01-2023 End: 07-01-2023 ambulatory Devendra MINER Facility: [place] Start: 07-01-2023 End: 07-01-2023 Patient encounter procedure Devendra MINER [facility] [employer] Start: 06-04-2023 End: 06-04-2023 ambulatory СВЕТЛАНА E MAST Facility: [place] Start: 06-04-2023 End: 06-04-2023 Patient encounter procedure Devendra Nick SCOTTY [facility] [place] [employer] Start: 06-02-2023 End: 06-02-2023 ambulatory Светлана Mast Other [employer] Other Start: 06-02-2023 Office outpatient vi sit 25 minutes Светлана Mast [facility] [place] Start: 03-26-2023 End: 03-26-2023 ambulatory Светлана Mast Other [employer] Other Start: 03-26-2023 Telephone encounter Светлана Mast [facility] [place] Start: 03-24-2023 End: 03-24-2023 ambulatory Светлана Mast Other [employer] Other Start: 03-24-2023 Telephone encounter Светлана Mast [facility] [place] Start: 03-04-2023 ambulatory Devendra MINER Facility : [place] Start: 02-27-2023 End: 02-27-2023 ambulatory Светлана Mast Other [employer] Other Start: 02-27-2023 Office outpatient vi sit 25 minutes Светлана Mast [facility] [place] Start: 02-17-2023 End: 02-17-2023 Patient encounter procedure DO Свтелана Mast Work Phone: [facility] [address] Work Phone: Start: 02-17-2023 End: 02-17-2023 ambulatory DO Светлана Mast Work Phone: [facility] Work Phone: Start: 02-03-2023 End: 02-03-2023 Patient encounter procedure DO Светлана Mast Work Phone: [facility] Start: 02-03-2023 End: 02-03-2023 ambulatory DO Светлана Mast Work Phone: [facility] Work Phone: Start: 01-27-2023 End: 01-27-2023 ambulatory Светлана Mast Other [employer] Other Start: 01-27-2023 Office outpatient ne w 45 minutes Светлана Mast [facility] Start: 10-08-2022 End: 10-08-2022 ambulatory CESARIO YOON MD [facility] Start: 09-10-2022 ambulatory VANGIE DORADO [facility] Start: 08-23-2022 AUDIT Jaylon Ulloa Work Phone: [facility] Work Phone: Start: 07-06-2022 AUDIT Jaylon Ulloa Work Phone: [facility] Work Phone: Start: 06-14-2022 Office outpatient vi sit 15 minutes Jaylon Ulloa Work Phone: [facility] Work Phone: Start: 06-14-2022 ambulatory JAYLON ULLOA Facil [id number] Start: 03-12-2022 AUDIT Jaylon Krishna Nekl Work Phone: [facility] Work Phone: Start: 02-09-2022 AUDIT Jaylon Krishna Nekl Work Phone: [facility] Work Phone: Start: 02-08-2022 End: 02-09-2022 ambulatory GRETEL MAJANO MD [facility] Start: 01-19-2022 Chart Update Jaylon Jimenezkl Work Phone: [facility] Work Phone: Start: 01-18-2022 Office outpatient vi sit 15 minutes Jaylon Ulloa Work Phone: [facility] Work Phone: Start: 01-18-2022 ambulatory JAYLON ULLOA Facil [id number] Start: 12-12-2021 Telephone encounter Jaylon Ulloa Work Phone: [facility] Work Phone: Start: 12-07-2021 End: 12-07-2021 Emergency department patient visit [facility] Start: 11-14-2021 AUDIT Jaylon Krishna Nekl Work Phone: [facility] Work Phone: Start: 11-06-2021 AUDIT Jaylon Tomi Nekl Work Phone: [facility] Work Phone: Start: 11-03-2021 AUDIT Jaylon Krishna Nekl Work Phone: [facility] Work Phone: Start: 10-22-2021 ambulatory JAYLON ULLOA Facil [id number] Start: 07-20-2021 ambulatory JAYLON JIMENEZKL Facil [id number] Start: 06-25-2021 AUDIT Jaylon Tomi Nekl Work Phone: [facility] Work Phone: Start: 06-20-2021 Telephone encounter Jaylon E Nekl Work Phone: [facility] Work Phone: Start: 06-13-2021 AUDIT Jaylon Tomi Nekl Work Phone: [facility] Work Phone: Start: 03-07-2021 Patient encounter procedure Jaylon E Nekl Work Phone: [address] Work Phone: Start: 03-01-2021 Office outpatient vi sit 15 minutes Jaylon E Nekl Work Phone: [facility] Work Phone: Start: 03-01-2021 Patient encounter procedure Jaylon E Nekl Work Phone: [facility] Work Phone: Start: 01-22-2021 AUDIT Jaylon Tmoi Nekl Work Phone: [facility] Work Phone: Start: 12-09-2019 Patient encounter procedure Jaylon Nekl [facility] Work Phone: Start: 07-15-2019 Patient encounter procedure Jaylon Nekl [facility] Work Phone: Start: 02-16-2019 Patient encounter procedure Jaylon Nekl [facility] Work Phone: Start: 10-20-2018 Patient encounter procedure Jaylon Nekl [facility] Work Phone: Start: 07-20-2018 Patient encounter procedure Jaylon Ulloa -[facility] Work Phone: Start: 03-23-2018 Patient encounter procedure Jaylon Ulloa -[facility] Work Phone: Start: 11-20-2017 Patient encounter procedure Jaylon Ulloa -[facility] Work Phone: Start: 07-25-2017 Patient encounter procedure Jaylon Ulloa -[facility] Work Phone: Patient encounter procedure Jaylon Ulloa Work Phone: [place] [address] DO Work Phone: Procedures Date Procedure Procedure Detail Performing Clinician Start: 10-16-2023 Transurethral prostatectomy DO Светлана Mast Work Phone: Start: 07-01-2023 Transurethral cystoscopy Devendra MINER Start: 02-17-2023 CT of abdomen and pe lvis without contrast DO Светлана Mast Work Phone: Start: 12-07-2021 Plain chest X-ray Start: 12-07-2021 CT cervical spine wi thout contrast Start: 12-07-2021 CT of head without contrast Start: 07-15-2019 Basic metabolic 1998 panel - Serum or Plasma Jaylon Ulloa Start: 07-15-2019 Hemoglobin glycosylated a1c Jaylon Ulloa Start: 07-15-2019 Lipid panel Jaylon saldana Procedure on knee Devendra RENAY SESAY Transurethral cystoscopy Becky MINER Plan of Treatment Date Care Activity Detail Author Start: 12-25-2023 MR prostate wo/w con MR prostate wo/ w con [facility] Start: 10-16-2023 [facility] Start: 12-16-2022 FUV, Provider: Jaylon Ulloa, Status: Pen, Time: 8:45 AM FUV, Provider: Jaylon Ulloa, Status: Pen, Time: 8:45 AM [employer] Work Phone: Start: 06-14-2022 FUV, Provider: Jaylon Ulloa, Status: Pen, Time: 9:00 AM FUV, Provider: Jaylon Ulloa, Status: Pen, Time: 9:00 AM [employer] Work Phone: Start: 01-18-2022 FUV, Provider: Jaylon Ulloa, Status: Pen, Time: 10:45 AM FUV, Provider: Jaylon Ulloa, Status: Pen, Time: 10:45 AM [employer] Work Phone: Start: 07-02-2021 FUV, Provider: Jaylon Ulloa, Status: Pen, Time: 8:30 AM FUV, Provider: Jaylon Ulloa, Status: Pen, Time: 8:30 AM [employer] Work Phone: Start: 03-07-2021 MCRWELCOME, Provider : Alie Gaytan, Status: Pen, Time: 8:00 AM MCRWELCOME, Provider: Alie Gaytan, Status: Pen, Time: 8:00 AM [employer] Work Phone: Start: 03-01-2021 FUV, Provider: Jaylon Ulloa, Status: Pen, Time: 9:45 AM FUV, Provider: Jaylon Ulloa, Status: Pen, Time: 9:45 AM [employer] [facility] Work Phone: Patient Education Paresthesia (DC) [facility] Work Phone: Patient referral [facility] Work Phone: Immunizations Immunization Date Immunization Notes Care Provider Fa cility 04-11-2023 Flu Shot - Documenta tion Purposes Only Светлана Mast Other [facility] 04-11-2023 influenza virus vacc ine, unspecified formulation Devendra MINER [facility] 03-21-2023 Prevnar 20 Светлана Mast Other [facility] 12-17-2022 tetanus toxoid, redu brittany diphtheria toxoid, and acellular pertussis vaccine, adsorbed Светлана Mast Other [facility] 06-02-2022 Moderna COVID-19 Biv al Booster 50 MCG/0.5ML Intramuscular Suspension Jaylon E Nekl Work Phone: [facility] 04-19-2022 zoster vaccine recombinant Jaylon E Nekl Work Phone: [facility] 04-08-2022 Fluzone High-Dose Quadrivalent 0.7 ML Intramuscular Suspension Prefilled Syringe Jaylon E Nekl Work Phone: [facility] Work Phone: 04-08-2022 influenza virus vacc ine, unspecified formulation Devendra MINER [facility] 01-11-2022 zoster vaccine recombinant Jaylon E Nekl Work Phone: [facility] 05-21-2021 Moderna COVID-19 Vac cine 100 MCG/0.5ML Intramuscular Suspension Jaylon E Nekl Work Phone: [facility] 03-01-2021 influenza virus vacc ine, unspecified formulation Devendra MINER [facility] 03-01-2021 influenza, high dose seasonal, preservative-free; Translations: [Fluzone High-Dose 0.5 ML Intramuscular Suspension Prefilled Syringe] Jaylon E Nekl Work Phone: [facility] Work Phone: Comment on above: Series: 08-01-2020 Moderna COVID-19 Vac cine 100 MCG/0.5ML Intramuscular Suspension Jaylon E Nekl Work Phone: [facility] 07-04-2020 Moderna COVID-19 Vac cine 100 MCG/0.5ML Intramuscular Suspension Jaylon E Nekl Work Phone: [facility] 03-09-2020 influenza virus vacc ine, unspecified formulation Devendra [employer] [facility] 03-09-2020 influenza, injectabl e, quadrivalent, preservative free Jaylon E Nekl Work Phone: [facility] 102 DO Work Phone: 04-22-2019 influenza virus vacc ine, unspecified formulation [employer] [facility] 04-22-2019 Influenza, injectabl e, Madin [place] Canine Kidney, quadrivalent with preservative Jaylon E Nekl Work Phone: [facility] 102 DO Work Phone: 04-10-2018 influenza virus vacc ine, unspecified formulation Devendra [employer] [facility] 04-10-2018 influenza, injectabl e, quadrivalent, preservative free Jaylon E Nekl Work Phone: [facility] 102 DO Work Phone: Payers Date Payer Category Payer Self-pay [id number] 2020 Medicare [id number] 1959 Private Health Insurance [facility] [id number] 1959 Unknown [id number] 1955 Unknown [id number] 2.16. [id number] 1955 Unknown [id number] 2.16. 840.1.958459.3.579.2.356 1955 Unknown [id number] 2.16. 840.1.051337.3.579.2.356 1955 Unknown [id number] 2.16. 840.1.446806.3.579.2.356 1955 Unknown [id number] 2.16.8 40.1.600033.3.579.2.159 1955 Unknown [id number] 2.16.8 40.1.601257.3.579.2.598 1955 Unknown [id number] 2.16.8 40.1.854994.3.579.2.598 1955 Unknown [id number] 2.16.8 40.1.429468.3.579.2.727 1955 Unknown [id number] 2.16.8 40.1.396865.3.579.2.727 1955 Unknown [id number] 2.16.8 40.1.326814.3.579.2.727 1955 Unknown [id number] 2.16.8 40.1.318542.3.579.2.727 1955 Unknown [id number] 2.16.8 40.1.691125.3.579.2.727 1955 Unknown [id number] 2.16.8 40.1.240852.3.579.2.727 1955 Unknown [id number] 2.16.8 40.1.509581.3.579.2.727 1955 Unknown [id number] 2.16.8 40.1.014599.3.579.2.727 1955 Unknown [id number] 2.16.8 40.1.354158.3.579.2.727 1955 Unknown [id number] 2.16.8 40.1.967941.3.579.2.727 1955 Unknown [id number] 2.16.8 40.1.133061.3.579.2.727 1955 Unknown [id number] 2.16.8 40.1.836905.3.579.2.727 Unknown Unknown [id number] Unknown [id number] 2.16.8 40.1.816185.3.579.2.531 Unknown [id number] 2.16.8 40.1.871148.3.579.2.531 Unknown [id number] 2.16.8 40.1.802457.3.579.2.531 Unknown [id number] 2.16.8 40.1.692434.3.579.2.531 Social History Date Type Detail Facility Currently working Currently working [facility] Work Phone: Start: 12-07-2021 Tobacco smoking status CAIS Smoker (finding) [facility] Start: 1955 Sex Assigned At Male F [facility] Sex Assigned At [facility] Start: 06-04-2023 End: 11-05-2023 Tobacco smoking status Never smoked tobacco (finding) [facility] Tobacco smoking status Never [facility] NEGATED: Highlighted row - - [employer] [facility] Work Phone: Medical Equipment Procedure Code Equipment Code Equipment Origin al Text Equipment Identifier Dates BD Pen Needle Na no U/F 32G X 4 MM uses 1 daily Quantity: 1 Refills: 3 Jaylon Ulloa MD Start : 21-Jan-2019 Active 100 Unit Box Start: 01-21-2019 BD Pen Needle Na no U/F 32G X 4 MM uses 1 daily Quantity: 1 Refills: 3 Jaylon Ulloa MD Start : 21-Jan-2019 Active 100 Unit Box Start: 01-21-2019 Goals Date Patient Goal Desired Activity /State Functional Status Date Assessment Result Facility 11-05-2023 Functional Status N/A [facility] 10-16-2023 Functional status Patient at Baseline [facility] Work Phone: 07-01-2023 Functional Status N/A [facility] 06-04-2023 Functional Status N/A [facility] NEGATED: Highlighted row Functional performance Functional status health issues are not documented Disease [facility] Work Phone: Mental Status Date Assessment Result Facility 10-16-2023 Cognitive function Cognitive Sta tus Patient at Baseline [facility] Work Phone: NEGATED: Highlighted row Cognitive function [Interpretation] Cognitive status health issues are not documented Disease [facility] Work Phone: Clinical Notes 01-27-2023 to 11-05-2023 Note Date & Type Note Facility 11-05-2023 Hospital Discharg e instructions Patient Education 11/05/2023 16:09:25 Bladder Stone Bladder Stone A bladder stone [...] Follow these instructions at home: Medicines Take psxf-upp-katifbl and prescription medicines only as told by your health care provider. Ask your health care provider if the medicine prescribed to you: ?Requires you to avoid driving or using heavy machinery. ?Can cause constipation. You may need to take these actions to prevent or treat constipation: ?Take jorl-lfg-pkxmkfq or prescription medicines. ?Eat foods that are [...] to find more information [facility] ([facility]): www.[facility]rology[facility].org Contact a health care provider if [...] provider. Document Revised: 01/06/2020 Document Reviewed: 01/06/2020 [employer] Patient Education 2022 [employer]. Follow Up Care 09/10/2023 14:40:10 With:SCOTTY VO, Devendra Romero, URL Address: [facility] [address], [place] [address]- When: Unknown [facility] 11-05-2023 Evaluation + Plan note Diagnostic Tests PendingPSA Total 11/05/23PSA Total 11/05/23 [facility] 07-14-2023 Evaluation note Encounter Date Diagnosis Assessment [...] (ICD-10 - I10) BP controlled, continue Rx [employer] Other 01-02-2024 Hospital Discharge instructions Patient Education [...] Follow these instructions at home: Medicines Take rjou-jfh-zhxiojw and prescription medicines only as told by your health care provider. Ask your health care provider if the medicine prescribed to you: ?Requires you to avoid driving or using heavy machinery. ?Can cause constipation. You may need to take these actions to prevent or treat constipation: ?Take blji-yqh-oywrxcf or prescription medicines. ?Eat foods that are [...] to find more information [facility] ([facility]): www.urologyhealth.org Contact a health care provider if [...] provider. Document Revised: 01/06/2020 Document Reviewed: 01/06/2020 [employer] Patient Education 2022 [employer]. 07/01/2023 14:44:58 Transurethral Resection of the Prostate [...] including vitamins, herbs, eye drops, creams, and swxv-ugx-ktsolew medicines. Any problems you or family members [...] provider tells you to take them. Taking leaq-nln-jfhsgln medicines, vitamins, herbs, and supplements. Surgery safety [...] provider. Document Revised: 03/12/2022 Document Reviewed: 03/12/2022 [employer] Patient Education 2022 [employer]. 07/01/2023 14:20:36 Benign Prostatic Hyperplasia Benign Prostatic [...] urethra. Follow these instructions at home: Take eobb-cda-cphrjii and prescription medicines only as told by [...] provider. Document Revised: 01/02/2022 Document Reviewed: 01/02/2022 [employer] Patient Education 2022 [employer]. Follow Up Care 06/04/2023 14:21:38 With:SCOTTY VO, Devendra Romero, CARLL Address: [facility] [address] , [place] [address]- When: Unknown Comments:Schedule Cysto/Litholapaxy/TURP [facility] 12-06-2023 Hospital Discharge instructions Patient Education 06/04/2023 14:11:58 [...] Follow these instructions at home: Medicines Take nubw-hep-nvhvwsh and prescription medicines only as told by your health care provider. Ask your health care provider if the medicine prescribed to you: ?Requires you to avoid driving or using heavy machinery. ?Can cause constipation. You may need to take these actions to prevent or treat constipation: ?Take ninf-njw-pawjpda or prescription medicines. ?Eat foods that are [...] to find more information [facility] ([facility]): www.urologyhealth.org Contact a health care provider if [...] provider. Document Revised: 01/06/2020 Document Reviewed: 01/06/2020 [employer] Patient Education 2022 [employer]. 06/04/2023 14:11:49 Cystoscopy Cystoscopy Cystoscopy is a [...] including vitamins, herbs, eye drops, creams, and ohuw-kok-hekkxir medicines. Any problems you or family members [...] provider tells you to take them. Taking eaxt-dhm-ekpurzz medicines, vitamins, herbs, and supplements. Tests You [...] Follow these instructions at home: Medicines Take mfqk-jwh-jdyekdm and prescription medicines only as told by [...] provider. Document Revised: 02/27/2022 Document Reviewed: 01/26/2021 [employer] Patient Education 2022 [employer]. Follow Up Care 03/04/2023 10:15:34 With:SCOTTY VO, Devendra Romero, URL Address: [facility] [address] , [place] [address]- When: Unknown [facility] 12-04-2023 Evaluation note* Encounter Date Diagnosis Assessment [...] I10) Controlled, continue lisinopril 10 mg daily [employer] Other 09-25-2023 Evaluation note* Encounter Date Diagnosis Assessment Notes Treatment Notes Treatment Clinical Notes Feb, Type 2 diabetes mellitus without complication, without long-term current use of insulin (ICD-10 - E11.9) Feb, Essential (primary) hypertension (ICD-10 - I10) [employer] Other 08-31-2023 Evaluation note* Encounter Date Diagnosis Assessment Notes Treatment Notes Treatment Clinical Notes Jan, Type 2 diabetes mellitus without complication, without long-term current use of insulin (ICD-10 - E11.9) Glycemic control is suboptimal. Freestyle mohamud 3 sensors are ordered. We reviewed his [...] Refer to urology, he is currently asymptomatic [employer] Other 07-31-2023 Evaluation note* Encounter Date Diagnosis [...] urologist for further evaluation to include cystoscopy [facility] [employer] Other evaluation + Plan note Future Appointments Appointment Date:07/01/2023 01:45:00 PM Scheduled Provider:Devendra MINER MD Location:[facility] Appointment Type:URO Procedure 15 min [facility] evaluation + Plan note Future Appointments Appointment Date:10/20/2023 09:00:00 AM Scheduled Provider: Location:[facility] Appointment Type:URO Nurse Visit Appointment Date:11/05/2023 03:00:00 PM Scheduled Provider:Devendra MINER MD Location:[facility] Appointment Type:URO Office Visit [facility] evaluation + Plan note Future Appointments Appointment Date:11/05/2023 03:00:00 PM Scheduled Provider:Devendra MINER MD Location:[facility] Appointment Type:URO Office Visit [facility] evaluation noteNo assessment information available [facility] Work Phone: evaluation noteNo Information[facility] Message Bus Other evaluation note* Diagnosis Onset Date Resolution Status Bladder calculus acute Essential (primary) hypertension acute [id number] acute [facility] Work Phone: Evaluation note* Diagnosis Onset Date Resolution Status [id number] acute [facility] Work Phone: Evaluation note* Diagnosis Onset Date Resolution Status Bladder calculus acute Essential (primary) hypertension acute Right arm pain acute Type 2 diabetes mellitus acu te [facility] Work Phone: History general Narrative - Reported* Type Description Date Medical History Hypertension Medical History type II diabetes Surgical History R knee surgery [employer] Other History of Present illness Narrative* spends time by [place] * wt. similar * hgm 90--150 range..tests 1--2 a day * no sob/ no chest pains * agent 10--14 basa u basa/ plus orals * no hypos [employer] Work Phone: History of Present illness Narrative* spends time by [place] home * wt. similar * hgm 90--150 range. per pt. .tests 1--2 a day * no sob/ no chest pains * agent 10--14 basag u / plus orals * no hypos * had eye care 2020 * overall feels fine * he again declines going on lipid lowering rx [employer] Work Phone: History of Present illness Narrative* [...] aids but has not got them yet. [facility] 102 DO Work Phone: History of Present [...] aids but has not got them yet. [facility] 102 DO Work Phone: History of Present [...] aids but has not got them yet. [employer] [facility] Work Phone: History of Present illness Narrative* cards appt. 2021 dr majano ([facility]) * r. arm issue resolved * hgm fbs 140--150s..seems a little higher to him * takes meds fine * no sob no cjhest pains * no hypos [employer] [facility] Work Phone: History of Present illness Narrative* [...] sjhot * eye [facility] Work Phone: Hospital course Narrative No data available for this section [facility] Discharge instructions No data available for this section [facility] Discharge instructions Additional Instructions DISCHARGE INSTRUCTIONS FOR CYSTOSCOPY WHAT YOU SHOULD KNOW AFTER YOUR CYSTO The following instructions must be followed very closely: -If you need pain pills, start before pain becomes intense. Antibiotics and pain pills are frequently less upsetting to your stomach if you take them with food such as crackers or bread. -If you are having excessive or persistent pain, swelling, bleeding, nausea, vomiting, or any other problems, you should first call your surgeon for advice. If you are unable to contact your surgeon, seek help from a hospital emergency room. If you were given drugs to make you drowsy and/or pain medication, follow these instructions: -You should spend the remainder of the day and evening resting. -You should not attempt to walk, including going to the bathroom, without assistance. You maybe lightheaded from the medications that you received. -Eat light today to avoid nausea. You should be able to return to your normal diet 24-36 hours after surgery. -For the next 24 hours you should not consume alcohol, attempt to drive, use any power tools, sign important documents or make important personal or business decisions. After that, do so if you feel perfectly normal and alert. -Follow carefully any verbal or written instructions your surgeon may have given you. ADDITIONAL INSTRUCTIONS -[Drink a lot of water.] -[Take medication as prescribed.] -[Get an abdominal X-Ray prior to the appointment and bring it with you. Call the office to make arrangements for the X-Ray.] FOLLOW UP Office will call for next step [ ] [facility] Work Phone: Progress note No data available for this section [facility] Chief Complaint here for dm/ bp followuphere [...] E11.9 R31.0 Chief Complaint E11.9 R31.0 R31.0 Chief Complaint 6 Weeks 2 month follow up Chief Complaint 2 month follow up Bladder Stone, BPH w/ Obstruction Reason for Visit Bladder calculus Essential (primary) hypertension [id number] Chief Complaint Bladder Stone, BPH w / Obstruction 3 month follow up Reason for Visit [id number] Chief Complaint Bladder Stone, BPH w / Obstruction 3 month follow up elevated psa Reason for Visit Bladder calculus Essential (primary) hypertension Right arm pain Type 2 diabetes mellitus Advance Directives No Advanced Directives Records Found Advance Directive Response Recorded Date/ Time Advance Directives No December 07 10:04am Summary Purpose Family History No Family History Records Found Relationship Condition Age at Onset Recorded Date/T jake father Unknown Diabetes mellitus Unknown Not Specified Unknown Heart disease Unknown Relationship Condition Age at Onset Recorded Date/T jake father Diabetes mellitus Unknown Unknown History of coronary artery bypass surgery Unknown Not Specified Diabetes mellitus Unknown Heart disease Unknown Relationship Condition Age at Onset Recorded Date/T jake father Diabetes mellitus Unknown Unknown History of coronary artery bypass surgery Unknown mother Diabetes mellitus Unknown Heart disease Unknown Reason for Referral Reason * FU 03/07 Bladder calculi with gross hematuria Diagnosis 1 Bladder calculi (N21 .0) Referral Organization [facility] Referring Provider First Name Светлана Referring Provider Last Name Mast Referring Provider Specialty Family Prac jyothi Referred Organization [facility] Referred Address [address],[place], [place],[address] Referred Provider Specialty Urology Referral Priority Routine [...] Primary Care Provider, Attending Provid er Active Team Status: Inactive Member Role Status Dates Светлана Mast , DO Attending Provider Active Start: July 14, 2023 End: July 14, 2023 Team Status: Inactive Member Role Status Dates Светлана Mast , DO Primary Care Provide r, Attending Provider Active Start: September 18, 2023 End: September 18, 2023 Team Status: Inactive Member Role Status Dates Светлана Mast , DO Primary Care Provider Active Star t: October 16, 2023 End: October 16, 2023 Devendra Miner MD Attending Provider Active St art: October 16, 2023 End: October 16, 2023 Team Status: Inactive Member Role Status Dates Светлана Mast , DO Primary Care Provide r, Attending Provider Active Start: December 22, 2023 End: December 22, 2023 Team Status: Inactive Member Role Status Dates Светлана Mast , DO Primary Care Provider Active Star t: December 25, 2023 End: December 25, 2023 Devendra Miner MD Attending Provider Active St art: December 25, 2023 End: December 25, 2023 Goals (unrecognized section and content) Goals may be documented in a n alternate sectionNo InformationGoals may be documented in an alternate sectionGoals may be documented in an alternate sectionNo InformationNo InformationNo InformationNo Information No data available for this section No data available for this sectionNo InformationGoals may be documented in an alternate section No data available for this section No data available for this section No data available for this section No data available for this section No data available for this section (unrecognized sect ion and content) No Status Records FoundNo Status Records FoundNo Status Records FoundNo Status Records FoundNo Status Records FoundNo Status Records Found INFORMATION SOURCE (unrecogn ized section and content) DATE CREATED AUTHOR 06/20/[address] [facility] DATE CREATED AUTHOR AUTHOR'S ORGANIZ ATION 06/21/2022 [facility] DATE CREATED AUTHOR AUTHOR'S ORGANIZ ATION 09/11/2022 [facility] DATE CREATED AUTHOR AUTHOR'S ORGANIZ ATION 10/11/2022 [facility] DATE CREATED AUTHOR AUTHOR'S ORGANIZ ATION 01/03/2024 [facility] DATE CREATED AUTHOR AUTHOR'S ORGANIZ ATION 01/04/2024 [facility] REASON FOR VISIT (unrecogniz ed section and [...] BE BASED ON THE PRIMARY CLINICAL RECORDS. [facility]. provides no warranty or guarantee of the accuracy or completeness of information in this document.
--- NOTE | 2024-01-16 09:01 | XR_ITS ---
The [address] [address] Patient Name: GRETEL GÓMEZ MRN: [id number] date: 1955 Sex: M Assigned Patient Location: [facility] Current Patient Location: [facility] Accession/Order Number: [id number] Exam Date: 01/16/2024 10:11 Report Date: 01/16/2024 13:50 At the request of: TYLER FAJARDO Procedure: XR chest 2V PROCEDURE: XR chest 2V DATE: 01/16/2024 9:11 AM CDT COMPARISONS: None. CLINICAL INDICATION: 68 years Male Preop exam FINDINGS: The cardiomediastinal silhouette and pulmonary vasculature are within normal limits. The lungs are clear. There is no evidence of pleural effusion or pneumothorax. XR/XR chest 2V IMPRESSION: Chest radiograph is within normal limits. Electronically authenticated by: MARITA SHERIFF Date: 01/16/2024 13:50
--- NOTE | 2024-01-16 09:41 | ECG_ITS ---
The [facility] Test Date: 2024-01-16 Pat Name: GRETEL GÓMEZ Department: Room: - Gender: Male [employer] Clerk: : 1955 Requested By: TYLER FAJARDO Order Number: [id number] Reading MD: FRANCINE MERCADO Measurements Intervals [place] Rate: 46 P: 52 MO: 142 QRS: -15 QRSD: 100 T: -31 QT: 441 QTc: 387 Interpretive Statements SINUS BRADYCARDIA VOLTAGE CRITERIA FOR LVH [MEETS CRITERIA IN ONE OF: R(aVL), S(V1), R(V5), R(V5/V6)+S(V1)] NONSPECIFIC T-WAVE ABNORMALITY - INF wall ischemia cannopt be ruled out Compared to ECG 08/14/2023 10:25:13 ST (T wave) deviation no longer present Possible ischemia no longer present T-wave abnormality still present Electronically Signed On 01-19-2024 7:30:56 EDT by FRANCINE MERCADO
[2024-01-16 10:03] LABS: Basophils Absolute Auto 0.1 10^3/uL (0.0-0.1); Basophils Percent Auto 0.8 % (0.2-2.0); Eosinophils Absolute Auto 0.3 10^3/uL (0.0-0.7); Eosinophils Percent Auto 4.7 % (0.9-7.0); Hematocrit 38.1 % (42.0-54.0); Hemoglobin 12.8 g/dL (14.0-18.0); Immature Granulocytes Abs Auto 0.01 10^3/uL (0.00-0.03); Immature Granulocytes Pct Auto 0.2 % (0.0-0.5); Lymphocytes Absolute Auto 2.4 10^3/uL (1.2-3.8); Lymphocytes Percent Auto 38.1 % (20.5-60.0); Mean Corpuscular HGB Conc 33.6 g/dL (29.9-35.2); Mean Corpuscular Hemoglobin 30.3 pg (25.9-34.0); Mean Corpuscular Volume 90.1 fL (80.0-94.0); Mean Platelet Volume 10.3 fL (9.5-13.5); Monocytes Absolute Auto 0.5 10^3/uL (0.3-0.8); Monocytes Percent Auto 7.1 % (1.7-12.0); Neutrophils Absolute Auto 3.1 10^3/uL (1.4-6.5); Neutrophils Percent Auto 49.1 % (43.0-75.0); Platelet Count 185 10^3/uL (150-450); Red Blood Count 4.23 10^6/uL (4.70-6.10); Red Cell Distribution Width 12.4 % (11.0-15.0); White Blood Count 6.4 10^3/uL (4.0-11.0)
--- NOTE | 2024-01-16 10:03 | P.GSHP_ITS ---
History of Present Illness History of Present Illness Chief complaint: Elevated PSA, Prostate lesion Narrative: Patient presents for preadmission testing. The patient states he had a procedure for bladder stones in September 2023. Since then, he had an elevated PSA followed by a prostate MRI. The patient denies any urinary complaints such as dysuria or hematuria Review of Systems ROS Narrative Negative except as stated in HPI, ten or more systems reviewed. ?Constitutional:? No fever , chills, weakness ? ENT:? No sore throat or epistaxis ? Cardiovascular: No edema, chest pain, or palpitations ? Respiratory:? No shortness of breath, cough, or wheezing ?Musculoskeletal:? No joint pain or swelling ? Gastrointestinal:? No abdominal pain, constipation, diarrhea, or vomiting ? Genitourinary:? No dysuria or hematuria ? Neurological:? No numbness, tingling, weakness, or headache ? Psychiatric:? No mood changes ? [facility] Medical History (Updated 01/16/24 @ 10:09 by Sofi Kelly NP) Abnormal prostate exam ?R39.89 - Other symptoms and signs involving the genitourinary system (ICD- 10) COVID-19 (03/2023) ?U07.1 - COVID-19 (ICD-10) Postoperative nausea and vomiting ?R11.2 - Nausea with vomiting, unspecified (ICD-10) ?Z98.890 - Other specified postprocedural states (ICD-10) Diabetes ?E11.9 - Type 2 diabetes mellitus without complications (ICD-10) Hypertension ?I10 - Essential (primary) hypertension (ICD-10) Elevated PSA ?R97.20 - Elevated prostate specific antigen [PSA] (ICD-10) Hematuria ?R31.9 - Hematuria, unspecified (ICD-10) Bladder stone ?N21.0 - Calculus in bladder (ICD-10) BPH with obstruction/lower urinary tract symptoms ?N40.1 - Benign prostatic hyperplasia with lower urinary tract symptoms (ICD- 10) ?N13.8 - Other obstructive and reflux uropathy (ICD-10) Surgical History (Updated 01/16/24 @ 09:25 by Sofi Kelly NP) H/O cystoscopy (10/16/23) ?Z98.890 - Other specified postprocedural states (ICD-10) H/O eye surgery ?Z98.890 - Other specified postprocedural states (ICD-10) History of colonoscopy ?Z98.890 - Other specified postprocedural states (ICD-10) H/O cystoscopy ?Z98.890 - Other specified postprocedural states (ICD-10) H/O knee surgery ?Z98.890 - Other specified postprocedural states (ICD-10) Family History (Updated 08/14/23 @ 10:14 by Sofi Kelly NP) Other Family history of diabetes mellitus Family history of hypertension Heart disease Social History (Updated 08/14/23 @ 10:10 by Sofi Kelly NP) Within the past year, how often did you have a drink containing alcohol: never Score interpretation: A score less than 4 is consistent with normal alcohol consumption. Smoking status: Never smoker Non-prescribed substance use: denies use Highest level of school completed/degree received: high school graduate Meds Home Medications and Allergies Home Medications ?Medication ?Instructions ?Recorded ?Confirmed ?Type aspirin 81 mg tablet,delayed 81 mg PO DAILY 08/14/23 01/16/24 History release (Adult Aspirin Regimen) insulin glargine 100 unit/mL (3 10 unit subcut QPM 08/14/23 01/16/24 History mL) subcutaneous pen (Basaglar KwikPen U-100 Insulin) lisinopril 10 mg tablet 10 mg PO DAILY 08/14/23 01/16/24 History metformin 500 mg tablet,extended 500 mg PO QID 08/14/23 01/16/24 History release 24 hr repaglinide 1 mg tablet 1 mg PO TID 08/14/23 01/16/24 History tamsulosin 0.4 mg capsule (Flomax) 0.4 mg PO DAILY 08/14/23 01/16/24 History Allergies Allergy/AdvReac Type Severity Reaction Status Date / Time Vegrjvx-QRA-IoN Reductase Allergy Rash Verified 01/16/24 09:20 Inhibitor Sulfa (Sulfonamide Allergy Rash Verified 01/16/24 09:20 Antibiotics) Exam Narrative Exam Narrative: Constitutional: Awake, alert, comfortable, well-appearing, nontoxic, interactive, vital signs as charted Head: Normocephalic, atraumatic Neck: Supple, normal appearance, normal range of motion, no meningeal signs, no lymphadenopathy Respiratory: No respiratory distress, breath sounds clear Cardiovascular: bradycardic rate, regular rhythm, strong and regular heart tones Abdomen: Nontender, normal bowel sounds, soft, no CVA tenderness Musculoskeletal: Normal gait, no swelling or edema Skin: No rashes or induration, no lesions, only visible skin inspected Neuro: No neurological deficits, normal sensationPsychiatric: Oriented ?3, normal affec Assessment and Plan Assessment and Plan (1) Abnormal prostate exam: (2) Elevated PSA: Plan Transrectal MRI prostate fusion biopsy scheduled with Dr. Miner 01/26/2024.
[2024-01-16 10:30] LABS: INR 1.03; Partial Thromboplastin Time 26.7 sec (22.3-36.2); Prothrombin Time 10.9 sec (9.0-11.6)
[2024-01-16 10:40] LABS: Anion Gap 13.5; BUN Creatinine Ratio 18.8; Calcium 9.1 mg/dL (8.5-10.1); Carbon Dioxide 26.6 mmol/L (21.0-32.0); Chloride 103 mmol/L (98-107); Estimated GFR (African America >60 (>=60); Estimated GFR (Non-African Ame 51 (>=60); Glucose 148 mg/dL (74-106); Potassium 5.1 mmol/L (3.5-5.1); Sodium 138 mmol/L (136-145)
== END 2024-01-16 08:38 | disposition home or self-care (01) ==
PROVIDERS: PCP Family Medicine; Visit Provider Urology
DX: Z01.810 Encounter for preprocedural cardiovascular examination (principal); Z01.812 Encounter for preprocedural laboratory examination; Z01.818 Encounter for other preprocedural examination; R97.20 Elevated prostate specific antigen [PSA]; N42.89 Other specified disorders of prostate
CPT/HCPCS: 71046; 80048; 85025; 85610; 85730; 93005; G0463

== ENCOUNTER 2024-01-26 08:54 | Day surgery (SDC) | payer MEDICARE, BC, SELFPAY ==
[2024-01-16 10:01] VITALS: BP 155/74; PULSE 50; TEMP 36.3; O2SAT 96; BMI 29.3
--- OUTSIDE RECORDS SUMMARY | 2024-01-26 08:59 | XMS_ITS | CCD ---
Author Organization [facility] CliniSyn[facility] Care Team Providers Care Product Safety Consultant Name Role Phone Nekl, Jaylon Unavailable Unavailable [...] Care Provider Mast, DO Светлана Attending Provider [phone] MAST, СВЕТЛАНА E Primary Care Physician Mast, DO Светлана Primary Care Provider [phone] MD Devendra Miner Attending Provider MAST, СВЕТЛАНА E Primary Care Physician Mast, Светлана Admitting Unavailable Mast, Светлана Attending Unavailable Mast, Светлана Primary Care Unavailable Mast, Светлана Admitting Unavailable Mast, Светлана Attending Unavailable Mast, Светлана Primary Care Unavailable Miner, Devendra Attending Unavailable Miner, Devendra Admitting Unavailable Mast, Светлана Primary Care Unavailable Miner, Devendra Attending Unavailable Miner, Devendra Admitting Unavailable Mast, Светлана Primary Care Unavailable MINER, Devendra R Referring Unavailable MINER, Devendra R Admitting Unavailable MINER, Devendra R Attending Unavailable MINER, Devendra R Admitting Unavailable MINER, Devendra R Attending Unavailable MINER, Devendra R Attending Unavailable MINER, Devendra R Attending Unavailable MINER, Devendra R Referring Unavailable MINER, Devendra R Attending Unavailable MAST, СВЕТЛАНА E Referring Unavailable MINER, [...] source) ezetimibe; Translations: [Zetia TABS] Drug Allergy [facility] Work Phone: colesevelam (1 source) colesevelam; Translations: [Welchol] Drug Allergy [facility] Work Phone: Linagliptin (1 source) Linagliptin; Translations: [Tradjenta TABS] Drug Allergy [facility] Work Phone: Sulfonamides (antibiotic) (1 source) Sulfonamides (Antibiotic); Translations: [Sulfa Drugs] Drug Allergy [facility] Work Phone: Thiazolidinediones (glitazones) (1 source) pioglitazone; Translations: [Pioglitazone HCl TABS] Drug Allergy [facility] Work Phone: (20 sources) colesevelam; Translations: [Welchol] Drug Allergy [facility] Repository (20 sources) ezetimibe; Translations: [Zetia TABS] Drug Allergy [facility] Work Phone: (20 sources) Linagliptin; Translations: [Tradjenta TABS] Drug Allergy [facility] Work Phone: (20 sources) pioglitazone; Translations: [Pioglitazone HCl TABS] Drug Allergy [facility] Work Phone: (20 sources) Sulfonamides (Antibiotic); Translations: [Sulfa Drugs] drug allergy [facility] Work Phone: (8 sources) Sulfonamides (Antibiotic); Translations: [Sulfa (Sulfonamide Antibiotics)] Allergy to substance 12-08-19 Unknown Reaction, Hives [facility] (8 sources) Rbhqxdr-VKE-MhR Reductase Inhibitor; Translations: [Mxcnnec-RKR-KbI Reductase Inhibitor] Allergy to substance 12-08-19 22 Unknown Reaction, Unknown Reaction, rash, Muscle Pain [facility] (1 source) ezetimibe Drug Allergy [facility] Repository (1 source) Linagliptin Drug Allergy [facility] Repository (1 source) pioglitazone Drug Allergy [facility] Repository (1 source) Sulfonamides (Antibiotic) Drug allergy (disorder) [facility] Repository (13 sources) HMG-CoA reductase inhibitor; Translations: [statins] Drug allergy rash, Eruption of skin (disorder) [facility] (6 sources) Sulfacetamide Sod-Sulfur Drug allergy rash [employer] Other (3 sources) SITagliptin Drug Allergy 07-14-19 24 shortness of breath [facility] (8 sources) Sulfur; Translations: [sulfur topical] Drug Allergy Eruption of skin (disorder) [facility] (1 source) Sulfacetamide Drug Allergy 07-14-19 24 rash [facility] (4 sources) Gliptins (DPP-4 Inhibitors); Translations: [Gliptins (DPP-4 Inhibitors)] Propensity to adverse reactions 10-16-19 24 Laryngitis [facility] (1 source) Hmg-Coa Reductase Inhibitors (Statins); Translations: [statins] Propensity to adverse reactions (disorder) [facility] Repository Medications Current Medications Medication Drug Class(es) [...] Start: 07-20-2018 take 1 tablet by savi once daily Lisinopril 5 MG Oral Tablet Take 1 tablet daily Quantity: 90 Refills: 3 Jaylon Ulloa MD Start : 20-Jul-2018 Active 24 hr metFORMIN hydrochlorid e 500 mg extended release oral tablet (20 sources) Biguanide Start: 10-16-2023 Metformin Acti ve 1000 MG PO .COMPLEX October 16, 2023 12:00am 1000 mg QAM, 500 mg Noon, 500 mg QPM Provider: Castro Krishna Start: 09-18-2023 End: 10-16-2023 take 2 tablets by mouth twice daily Metformin Discontinued 1000 MG PO Twice daily 360 September 18, 2023 1:59pm October 16, 2023 12:26pm [employer] tablets Orally twice a day; Note: Source Status: Continue; Provider: Castro Ko E Start: 06-04-2023 take 1 mg by mouth once daily metformin 500 mg ER Tab mg tab(s), Oral, Daily, Refills(s) 0 Start Date: 06/04/23 Status: Ordered Start: 10-26-2013 take 2 tablets by mo wih twice daily metFORMIN HCl ER 500 MG [...] day(s), # 30 cap(s), Refills(s) 11, Pharmacy: [facility], 178, cm, 06/04/23 13:57:00 EST, [...] completed, # 2 tab(s), Refills(s) 0, Pharmacy: [facility], 178, cm, 06/04/23 13:57:00 EST, [...] [Coronary atherosclerosis of unspecified type of vessel, [place] or graft] Onset: 02-11-2022 Chronic Diabetes mellitus [...] specified vaccination] Episodic Other aftercare (1 source) 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 Impression dictated by: Taco Huston Jr., D.ORohan12/26/2023 9:38 AM Dictation Location: [facility]--12 Transcribed By: [facility] 12/26/23937 Dictated By: Taco Huston Jr, DO 12/26/2333 Signed By: 12/26/23937 Normal [facility] ISTAT XRay CREon 12-25-2023 ISTAT GFR 46.641 Normal [facility] Comment on above: Result Comment: PERF ORMED BY: [facility] [address] [place] [address] PATHOLOGIST ASSOCIATE EDITOR JEAN-PIERRE ALFARO M.D. Performed By: #### I SCRE ####[facility] [address] [place] [id number] [facility] No Panel InformationOrdered By: Devendra Miner on 12-25-2023 Bedside Estimated GFR (eGFR) 46.641 [facility] Whole blood creatinine measu rementOrdered By: Devendra Miner on 12-25-2023 Creatinine [Mass/Vol] 1.6 mg/dL High 0.6-1.3 [facility] Comment on above: ER/ESD physician is notified/shown all ISTAT results.Critical values may be confirmed by laboratory testing ifdeemed necessary by ER attending doctor. Result Comment: ER/E SD physician is notified/shown all ISTAT results. Critical values may be confirmed by laboratory testing if deemed necessary by ER attending doctor. Performed By: #### I SCRE ####[place] [address] [place] [id number] [facility] HbA1c HPLC (Bld) [Mass fract ion]on 12-22-2023 HbA1c (Bld) [Mass fraction] 6.8 % [facility] Insurance Correspondenceon 0 11-28-2023 Insurance Correspondence [id number]# 1.00TIFF Normal [facility] PSA Totalon 11-06-2023 Prostate specific Ag [Mass/Vol] 4.5 ng/mL High 0.1-3.5 [facility] Comment on above: Result Comment: The concentration of PSA determined by different manufacturers can vary due to differences in assay methods and reagent specificity. Values obtained from different assay methods cannot be used interchangeably. The methodology used for this result was chemiluminescence using [employer] Access Hybritech PSA reagent. Performed By: #### 1 [id number] ####[facility] [address] [place] [address] Ambulatory Visit Summaryon 0 11-05-2023 Ambulatory Visit [...] VAL When: Where: [facility] [address] , [place] [address]- Medications What How Much When Instructions Unchanged [...] (pelvis (more content not included)... Normal [facility] Patient Educationon 11-05-19 Patient Education Urology Bladder [...] these instructions at home: Medicines ? Take smkd-ljg-azmgfug and prescription medicines only as told by your health care provider. ? Ask your health care provider if the medicine prescribed to you: ? Requires you to avoid driving or using heavy machinery. ? Can cause constipation. You may need to take these actions to prevent or treat constipation: ? Take sxhs-obl-mwqejog or prescription medicines. ? Eat foods that [...] (F): www.urologyhealth.org (more content not included)... Normal [facility] Urology Office/Clinic Noteon 11-05-2023 Urology Office/Clinic Note [...] bx years ago by Dr. Pena at [facility]. Elevated PSA level likely from prostatitis and exacerbated from incomplete emptying. [1] -PSA will be drawn IO today. Follow-up With When Contact Information SCOTTY VO, Devendra Romero, URL [facility] [address], [place] [address]- Additional Instructions: f/u pending uros results, with PVR Patient Education Bladder Stone I, Debbie Mario, personally scribed for Dr. Miner on 11/05/2023 16:21:31. . Documentation recorded by the scribe, Debbie Mario, accurately reflects the services(s) I performed and decisions made by me. Authenticated by Dr. Miner on 11/05/2023 16:26:26. Problem List/Past Medical History [...] diphtheria/pertussis, acel/tetanus adult 12/17/2022 Recorded SARS-CoV-2 (COVID-19) [id number] 06/02/2022 Recorded zoster vaccine, inactivated 04/19/2022 Recorded influenza virus vac (more content not included)... Normal [facility] Comment on above: Result Comment: Elec tronically Signed By: Devendra MINER MD\.br\Date and Time Signed: 11/05/23 16:26 EDT\.br\Electronically Co-Signed By: Debbie Mario\.br\Date and Time Co-Signed: 11/05/23 16:21 EDT\.br\Electronically Co-Signed By: Debbie Mario\.br\Date and Time Co-Signed: 11/05/23 16:25 EDT Pathology Noteon 10-22-2023 Pathology Note [id number]#1 .00TIFF Normal [facility] Operative Reporton Operative Report [id number]#1 .00TIFF Normal [facility] Capillary blood glucose vida urement by glucometer (mass/volume)Ordered By: Devendra Miner on 10-16-2023 Glucose [Mass/Vol] 147 mg/dL Normal [facility] Comment on above: Random Glucose Refer ence Range is dependent on time and content of last meal. Glucose of more than 200 mg/dL in a nonstressed, ambulatory subject supports the diagnosis of Diabetes Mellitus. Result Comment: [place] om Glucose Reference Range is dependent on time and content of last meal. Glucose of more than 200 mg/dL in a nonstressed, ambulatory subject supports the diagnosis of Diabetes Mellitus. Performed By: #### G LULS ####Point of Care testing, ECG 12 lead ECGon 10-16-2023 ECG 12 lead ECG [facility] [place] [address] Electrocardiograph Report Signed Patient: Gretel Toscano MR#: [id number] : 1955 Acct:[id number] Age/Sex: 68 / M ADM Date: 10/16/23 Loc: [place] Room: Type: [facility] Attending Dr: Devendra Miner MD Ordering Provider: Charbel Kingsley MD Date of Service: 10/16/23 ECG/ECG [...] hypertrophy Abnormal ECG Confirmed by Awais Longoria ([id number]) on 10/16/2023 3:46:50 PM Referred By: Electronically Signed By:Awais Longoria Transcribed By: MUS Signed By Awais Longoria MD 10/16/23 1546 Normal [facility] Glucose Poct Glucometerson 0 10-16-2023 Commemt1 Glu2: Cleaned Meter Normal [facility] Comment on above: Performed By: #### G LULS ####Point of Care testing, Commemt2 WILL NOTIFY DR/VALENTIN Normal [facility] Comment on above: Result Comment: PERF ORMED BY: [address] [place] [address] PATHOLOGIST ASSOCIATE EDITOR JEAN-PIERRE ALFARO M.D. Performed By: #### G LULS ####Point of Care testing, Isra 10-16-2023 L Specimen: [id number] Received: 10/16/23 Status: HEATHER Harden Num: [id number] Spec Type: Surgical Subm Dr: Devendra Miner MD Tissues: A Urinary Calculus (BLADDER STONES) Procedures: Level 1 Gross Age/ Patient Sex Location Account Attending Physician Gretel Toscano 68/M [place] [id number] Devendra Miner MD SPEC NUM: [id number] RECD: 10/16/23 STATUS: HEATHER HARDEN NUM: [id number] KARLIE: 10/16/23- SUBM DR: Devendra Miner MD ENTERED: 10/16/[address] [facility] [address]: SPEC TYPE: Surgical DEPT: S ENTERED BY: [id number] RECV BY: [id number] ORDERED: Level 1 Gross ORDERED: Level 1 [...] RG/CYC Clinical history: Bladder stones CPT Codes 03000 -------- -------- Specimen: [id number] Received: 10/16/23 Status: HEATHER Dereck Num: [id number] Spec Type: Surgical Subm Dr: Devendra Miner MD Tissues: A Urinary Calculus (BLADDER STONES) Procedures: Level 1 Gross -------- Patient: Gretel Toscano [id number] (Continued) -------- Signed (signature on file) Alex Flores MD 10/21/23 4265 Normal [facility] No Panel InformationOrdered By: Devendra Miner on 10-16-2023 Bedside Glucose #2 Comment Will notify /valentin [facility] Bedside Glucose Comment Glu2: cleaned meter [facility] Consent for Procedure/Surger yon 09-19-2023 Consent for Procedure/Surgery [id number] [facility] HbA1c HPLC (Bld) [Mass fract ion]on 09-18-2023 HbA1c (Bld) [Mass fraction] 7.2 % [facility] Lab Reportson 09-18-2023 Lab Reports [id number]#1 .00TIFF Normal [facility] Lab Reports [id number]#1 .00TIFF Normal [facility] Lab Reports [id number]#1 [address] [facility] ECG 12-Leadon 08-15-2023 ECG 12-Lead [id number]#[address] [facility] ECG 12-Lead [id number] .00TIFF Normal [facility] Lab Reportson 08-15-2023 Lab Reports [id number]#[address] [facility] Lab Reports [id number] [facility] Consent for Procedure/Surger yon 08-05-2023 Consent for Procedure/Surgery [id number] [facility] Consent for Procedure/Surger yon 07-02-2023 Consent for Procedure/Surgery [id number] .[address] [facility] Ambulatory Visit Summaryon 0 07-01-2023 Ambulatory Visit [...] Where: [facility] [address], [place] [address]- Medications What How Much When Instructions Unchanged [...] prostate gland. (more content not included)... Normal [facility] Patient Educationon 07-01-19 24 Patient Education Urology [...] these instructions at home: Medicines ? Take qrxx-lbz-khxhxux and prescription medicines only as told by your health care provider. ? Ask your health care provider if the medicine prescribed to you: ? Requires you to avoid driving or using heavy machinery. ? Can cause constipation. You may need to take these actions to prevent or treat constipation: ? Take wdhn-usa-awhspxs or prescription medicines. ? Eat foods that [...] to find more information [facility] [place] [place] www.urologyhealth.org (more content not included)... Normal [facility] Urology Office/Clinic Noteon 07-01-2023 Urology Office/Clinic Note [...] in bladder) CT AP wo con 02/17/23 [facility] - Multiple dependent urinary [...] tract symptoms) CT AP wo con 02/17/23 [facility] - No obstruction. Prostatomegaly. [...] bx years ago by Dr. Pena at [facility]. Elevated PSA level likely from prostatitis and exacerbated from incomplete emptying. Follow-up With When Contact Information Devendra MINER MD, [facility] [address], [place] [address]- Additional Instructions: Schedule Cysto/Litholapaxy/TUR P Patient Education Benign Prostatic Hyperplasia I, Rachele Barber , personally scribed for Dr. Miner on 07/01/2023 14:41:03. . Documentation recorded by the scribeRachele, accurately reflects the services(s) I performed and decisions made by me. Problem List/Past Medical History Ongoing Bladder stone BPH with obstruction/lower (more content not included)... [facility] Comment on above: Result Comment: Elec tronically Signed By: Devendra MINER MD\.br\Date and Time Signed: 07/01/23 14:44 EST\.br\Electronically Co-Signed By: Rachele Barber\.br\Date and Time Co-Signed: 07/01/23 14:41 EST Formson 06-05-2023 Forms [id number]#[address] [facility] Physician Referralon 023 Physician Referral [id number]#[address] [facility] Screenson 06-05-2023 Screens [id number] [facility] Ambulatory Visit Summaryon 1 08-05-2022 Ambulatory Visit Summary GRETEL BAINS :1955 Visit Date:06/04/2023 Ambulatory Visit Instructions Your Diagnosis Bladder stone BPH with obstruction/lower urinary tract symptoms Gross hematuria History of elevated PSA Tests Performed Urnls Dip Stick Auto w/o Microscopy POC 72830 Your Care Team Attending Physician - Devendra [...] When: Where: [facility] [address] [place] [address]- Medications What How Much When Instructions Unchanged aspirin (aspirin 81 mg Oral EC Tab) Every day Unchanged insulin glargine (Basaglar KwikPen) Every day Unchanged lisinopril (lisinopril 10 mg Tab) Every day Unchanged metformin (metformin 500 mg ER Tab) Every day Unchanged repaglinide (repaglinide 1 mg Tab) Before meals Test Results Urnls Dip Stick Auto w/o Microscopy POC 60809 (06/04/2023) Bilirubin Urine Dipstick - Negative Blood Urine Dipstick - 1+ Small Glucose Urine Dipstick - Trace 100 mg/dl Ketones Urine Dipstick - Negative Leukocytes Urine Dipstick - Negative Nitrite Urine Dipstick - Negative Protein Urine Dipstick - 2+ (100 mg/dl) Specific [place] Urine Dipstick - 1.020 Urine Appearance Urine [...] check y (more content not included)... Normal [facility] Patient Educationon 06-04-20 Patient Education Urology Bladder [...] these instructions at home: Medicines ? Take xtyz-gdo-waddjjx and prescription medicines only as told by your health care provider. ? Ask your health care provider if the medicine prescribed to you: ? Requires you to avoid driving or using heavy machinery. ? Can cause constipation. You may need to take these actions to prevent or treat constipation: ? Take mchh-nwp-pjiemvz or prescription medicines. ? Eat foods that [...] more information [facility] ([facility]): www.urologyhealth.org (more content not included)... Normal [facility] Urology Office/Clinic Noteon 06-04-2023 Urology Office/Clinic Note [...] in bladder) CT AP wo con 02/17/23 [facility] - Multiple dependent urinary [...] order Local anesthesia. Prophylactic abx sent to [facility]. 2. 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 Prostatomegaly. [...] qd. SEs discussed. Rx sent to [facility]. 3. Gross hematuria (R31.0: Gross hematuria) [...] bx years ago by Dr. Pena at [facility]. Elevated PSA level likely from prostatitis and exacerbated from incomplete emptying. Follow-up With When Contact Information SCOTTY VO, Devendra Romero, URL [facility] [address], [place] [address]- Additional Instructions: schedule cysto Patient Education Bladder Stone Cystoscopy I, Debbie Mario, personally scribed for Dr. Miner on 06/04/2023 14:12:52. Electronically signed by (more content not included)... Normal [facility] Comment on above: Result Comment: Elec tronically Signed By: Devendra MINER MD\.br\Date and Time Signed: 06/04/23 14:15 EST\.br\Electronically Co-Signed By: Debbie Mario\.br\Date and Time Co-Signed: 06/04/23 14:13 EST A1C HEMOGLOBINon 06-02-2023 HbA1c (Bld) [Mass fraction] 7.2 % [employer] Other HbA1c (Bld) [Mass fraction]o n 06-02-2023 A1C HEMOGLOBIN [facility] Sambaz[facility] Other CT abdomen pelvis wo conon 0 02-17-2023 CT abdomen pelvis wo [facility] [address] [address] [address] Scan Report Signed Patient: Gretel Toscano MR#: [id number] : 1955 Acct:[id number] Age/Sex: 67 / M ADM Date: 02/17/23 [facility]: Type[facility] Attending Dr: Светлана Erazo DO Copies to: [...] Huston Jr., D.O.02/17/2023 2:56 PM Dictation Location: [place] [address] Transcribed By: [facility] 02/17/23 1456 Dictated By: Taco Huston Jr, DO 02/17/23 145 Signed By: 02/17/23 145 Normal [facility] Potassium [Moles/volume] in Serum or PlasmaOrdered By: Светлана Erazo on 02-05-2023 Potassium [Moles/Vol] 4.7 mmol/L Normal 3.5-5.1 [facility] Comment on above: Result Comment: PERF ORMED BY: [facility] [address] [place] [address] PATHOLOGIST ASSOCIATE EDITOR JEAN-PIERRE ALFARO M.D. Performed By: #### R TRISTAN Puga ####[facility] [address] [place] [address] [facility] A1C with Estimated Average G josé migueln 02-03-2023 Glucose [Mass/Vol] 169 mg/dL Normal [facility] Comment on above: Order Comment: Reaso n for Exam Type 2 diabetes mellitus without complication, without long- Result Comment: PERF ORMED BY: [facility] [address] [place] [address] PATHOLOGIST ASSOCIATE EDITOR JEAN-PIERRE ALFARO M.D. Performed By: #### U A, A1C WTH eA, CBC, URMACRERAT, CMP, LIPID #### [facility] [address] [place] [address] [place] Alanine aminotransferase [En zymatic activity/volume] in Serum or PlasmaOrdered By: Светлана Mast on 02-03-2023 ALT [Catalytic activity/Vol] 51 U/L Normal 7-52 [facility] Comment on above: Order Comment: Reaso n for Exam Type 2 diabetes mellitus without complication, without long- Performed By: #### U A, A1C WTH eA, CBC, URMACRERAT, CMP, LIPID #### [facility] [address] [place] [address] [place] Albumin [Mass/volume] in Ser um or Plasma by Bromocresol green (BCG) dye binding methoOrdered By: Светлана Mast on 02-03-2023 Albumin BCG dye [Mass/Vol] 4.5 g/dL 3.5-5.7 [facility] Alkaline phosphatase [Enzyma tic activity/volume] in Serum or PlasmaOrdered By: Светлана Mast on 02-03-2023 ALP [Catalytic activity/Vol] 52 U/L Normal 34-104 [facility] Comment on above: Order Comment: Reaso n for Exam Type 2 diabetes mellitus without complication, without long- Performed By: #### U A, A1C WTH eA, CBC, URMACRERAT, CMP, LIPID #### [facility] [address] [place] [id number] [place] Aspartate aminotransferase [ Enzymatic activity/volume] in Serum or PlasmaOrdered By: Светлана Mast on 02-03-2023 AST [Catalytic activity/Vol] 31 U/L Normal 13-39 [facility] Comment on above: Order Comment: Reaso n for Exam Type 2 diabetes mellitus without complication, without long- Performed By: #### U A, A1C WTH eA, CBC, URMACRERAT, CMP, LIPID #### [facility] [address] Automated basophil %Ordered By: Светлана Mast on 02-03-2023 Basophils/100 WBC (Bld) 1.0 % Normal . [facility] Comment on above: Order Comment: Reaso n for Exam Type 2 diabetes mellitus without complication, without long- Performed By: #### U A, A1C WTH eA, CBC, URMACRERAT, CMP, LIPID #### [facility] [address] Automated basophil countOrde red By: Светлана Mast on 02-03-2023 Basophils (Bld) [#/Vol] 0.1 10*3/uL Normal 0.0-0.2 [facility] Comment on above: Order Comment: Reaso n for Exam Type 2 diabetes mellitus without complication, without long- Result Comment: PERF ORMED BY: [place] [address] PATHOLOGIST ASSOCIATE EDITOR JEAN-PIERRE ALFARO M.D. Performed By: #### U A, A1C WTH eA, CBC, URMACRERAT, CMP, LIPID #### [facility] [address] Automated blood monocyte cou ntOrdered By: Светлана Mast on 02-03-2023 Monocytes (Bld) [#/Vol] 0.5 10*3/uL Normal 0.0-0.8 [facility] Comment on above: Order Comment: Reaso n for Exam Type 2 diabetes mellitus without complication, without long- Performed By: #### U A, A1C WTH eA, CBC, URMACRERAT, CMP, LIPID #### [facility] [address] [place] [address] [place] Automated eosinophil %Ordere d By: Светлана Mast on 02-03-2023 Eosinophils/100 WBC (Bld) 6.6 % Normal . [facility] Comment on above: Order Comment: Reaso n for Exam Type 2 diabetes mellitus without complication, without long- Performed By: #### U A, A1C WTH eA, CBC, URMACRERAT, CMP, LIPID #### [facility] [address] [place] [address] [place] Automated eosinophil countOr dered By: Светлана Mast on 02-03-2023 Eosinophils (Bld) [#/Vol] 0.4 10*3/uL Normal 0.0-0.45 [facility] Comment on above: Order Comment: Reaso n for Exam Type 2 diabetes mellitus without complication, without long- Performed By: #### U A, A1C WTH eA, CBC, URMACRERAT, CMP, LIPID #### [facility] [address] Automated monocyte %Ordered By: Светлана Mast on 02-03-2023 Monocytes/100 WBC (Bld) 7.2 % Normal . [facility] Comment on above: Order Comment: Reaso n for Exam Type 2 diabetes mellitus without complication, without long- Performed By: #### U A, A1C WTH eA, CBC, URMACRERAT, CMP, LIPID #### [facility] [address] [place] [id number] [place] Automated neutrophil %Ordere d By: Светлана Mast on 02-03-2023 Neutrophils/100 WBC (Bld) 48.7 % Normal . [facility] Comment on above: Order Comment: Reaso n for Exam Type 2 diabetes mellitus without complication, without long- Performed By: #### U A, A1C WTH eA, CBC, URMACRERAT, CMP, LIPID #### [facility] [address] [place] [id number] [place] Automated urine color determ inationOrdered By: Светлана Mast on 02-03-2023 Color (U) Yellow Normal Yellow [facility] Comment on above: Order Comment: Reaso n for Exam Gross hematuria Name Collection Type:: Voided Performed By: #### U A, A1C WTH eA, CBC, URMACRERAT, CMP, LIPID #### [facility] [address] [place] [address] [place] Bilirubin Test strip Ql (U)O rdered By: Светланаsegundo Erazo on 02-03-2023 Bilirubin Ql (U) Negative Negative [facility] Bilirubin.total [Mass/volume ] in Serum or PlasmaOrdered By: Светлана Mast on 02-03-2023 Bilirubin [Mass/Vol] 0.5 mg/dL Normal 0.3-1.0 [facility] Comment on above: Order Comment: Reaso n for Exam Type 2 diabetes mellitus without complication, without long- Performed By: #### U A, A1C WTH eA, CBC, URMACRERAT, CMP, LIPID #### [facility] [address] [place] [id number] [place] Calcium [Mass/volume] in Ser um or PlasmaOrdered By: Светлана Mast on 02-03-2023 Calcium [Mass/Vol] 9.6 mg/dL Normal 8.6-10.3 [facility] Comment on above: Order Comment: Reaso n for Exam Type 2 diabetes mellitus without complication, without long- Performed By: #### U A, A1C WTH eA, CBC, URMACRERAT, CMP, LIPID #### [facility] [address] [place] [id number] [place] Carbon dioxide, total [Moles /volume] in Serum or PlasmaOrdered By: Светлана Mast on 02-03-2023 CO2 [Moles/Vol] 26.4 mmol/L Normal 21.0-31.0 [facility] Comment on above: Order Comment: Reaso n for Exam Type 2 diabetes mellitus without complication, without long- Performed By: #### U A, A1C WTH eA, CBC, URMACRERAT, CMP, LIPID #### [facility] [address] [place] [id number] [place] Chloride [Moles/volume] in S mani or PlasmaOrdered By: Светлана Mast on 02-03-2023 Chloride [Moles/Vol] 105 mmol/L Normal 98-107 [facility] Comment on above: Order Comment: Reaso n for Exam Type 2 diabetes mellitus without complication, without long- Performed By: #### U A, A1C WTH eA, CBC, URMACRERAT, CMP, LIPID #### [facility] [address] [place] [phone] [place] Cholesterol [Mass/volume] in Serum or PlasmaOrdered By: Светлана Erazo on 02-03-2023 Cholesterol [Mass/Vol] 202 mg/dL High 140-200 [facility] Comment on above: Chol less than [...] WTH eA, CBC, URMACRERAT, CMP, LIPID #### [facility] [address] [place] [phone] [facility] Cholesterol in LDL Calc [Mas s/Vol]Ordered By: Светлана Erazo on 02-03-2023 Cholesterol in LDL [Mass/Vol] 129 mg/dL 0-100 [facility] Comment on above: LDL ATP III CLASSIFI CATIONLDL less than 100 mg/dL OptimalLDL 100-129 mg/dL Near or above optimalLDL 130-159 mg/dL Borderline highLDL 160-189 mg/dL HighLDL greater than 189 mg/dL Very high Cholesterol in VLDL Calc [Ma ss/Vol]Ordered By: Светлана Erazo on 02-03-2023 Cholesterol in VLDL [Mass/Vol] 44 mg/dL [facility] Complete Blood Count Auto Di ffon 02-03-2023 Mean Corpuscular HGB Conc 34.0 g/dL Normal 32.5-35.6 [facility] Comment on above: Order Comment: Reaso n for Exam Type 2 diabetes mellitus without complication, without long- Performed By: #### U A, A1C WTH eA, CBC, URMACRERAT, CMP, LIPID #### [facility] [address] [place] [address] [facility] NRBC% 0.1 /100{WBC} Normal 0-0.5 [facility] Comment on above: Order Comment: Reaso n for Exam Type 2 diabetes mellitus without complication, without long- Performed By: #### U A, A1C WTH eA, CBC, URMACRERAT, CMP, LIPID #### [facility] [address] Comprehensive Metabolic Pane isra 02-03-2023 Albumin [Mass/Vol] 4.5 g/dL Normal 3.5-5.7 [facility] Comment on above: Order Comment: Reaso n for Exam Type 2 diabetes mellitus without complication, without long- Performed By: #### U A, A1C WTH eA, CBC, URMACRERAT, CMP, LIPID #### [facility] [address] Anion gap [Moles/Vol] Not performed Normal 6.0-15.0 [facility] Comment on above: Order Comment: Reaso n for Exam Type 2 diabetes mellitus without complication, without long- Performed By: #### U A, A1C WTH eA, CBC, URMACRERAT, CMP, LIPID #### [facility] [address] GFR/1.73 sq M.predicted MDRD (S/P/Bld) [Vol rate/Area] 59.660 mL/min/{1.73_m2} Normal [facility] Comment on above: Order Comment: Reaso n for Exam Type 2 diabetes mellitus without complication, without long- Performed By: #### U A, A1C WTH eA, CBC, URMACRERAT, CMP, LIPID #### [facility] [address] Potassium Normal 3.5-5.1 [facility] Comment on above: Order Comment: Reaso n for Exam Type 2 diabetes mellitus without complication, without long- Result Comment: Spec imen hemolyzed, redraw requested Performed By: #### U A, A1C WTH eA, CBC, URMACRERAT, CMP, LIPID #### [facility] [address] [place] [phone] [facility] Creatinine [Mass/volume] in Serum or PlasmaOrdered By: Светлана Erazo on 02-03-2023 Creatinine [Mass/Vol] 1.31 mg/dL High 0.70-1.30 [facility] Comment on above: Order Comment: Reaso n for Exam Type 2 diabetes mellitus without complication, without long- Performed By: #### U A, A1C WTH eA, CBC, URMACRERAT, CMP, LIPID #### [facility] [address] [place] [phone] [facility] Creatinine [Mass/volume] in UrineOrdered By: Светлана Erazo on 02-03-2023 Creatinine (U) [Mass/Vol] 100.0 mg/dL 14.0-26.0 [facility] Erythrocyte distribution wid th [Ratio] by Automated countOrdered By: Светлана Erazo on 02-03-2023 Erythrocyte distribution width (RBC) [Ratio] 13.3 % Normal 12.0-14.8 [facility] Comment on above: Order Comment: Reaso n for Exam Type 2 diabetes mellitus without complication, without long- Performed By: #### U A, A1C WTH eA, CBC, URMACRERAT, CMP, LIPID #### [facility] [address] [place] [id number] [place] Erythrocytes [#/volume] in B lood by Automated countOrdered By: Светлана Erazo on 02-03-2023 RBC (Bld) [#/Vol] 4.24 10*6/uL Normal 3.90-5.60 [facility] Comment on above: Order Comment: Reaso n for Exam Type 2 diabetes mellitus without complication, without long- Performed By: #### U A, A1C WTH eA, CBC, URMACRERAT, CMP, LIPID #### [facility] [address] [place] [id number] [place] Glucose [Mass/volume] in Ser um or PlasmaOrdered By: Светлана Lokofoto on 02-03-2023 Glucose [Mass/Vol] 163 mg/dL High 70-100 [facility] Comment on above: ADA recommended refe rence rangeRandom Glucose Reference Range is dependent on time and content of last meal. Glucose of more than 200 mg/dL in a nonstressed, ambulatory subject supports the diagnosis of Diabetes Mellitus. Order Comment: Reaso n for Exam Type 2 diabetes mellitus without complication, without long- Result Comment: Rosey jimenez Glucose Reference Range is dependent on time and content of last meal. Glucose of more than 200 mg/dL in a nonstressed, ambulatory subject supports the diagnosis of Diabetes Mellitus. ADA recommended reference range Performed By: #### U A, A1C WTH eA, CBC, URMACRERAT, CMP, LIPID #### [facility] [address] [place] [address] [facility] Glucose mean value [Mass/vol ume] in Blood Estimated from glycated hemoglobinOrdered By: Светлана Erazo on 02-03-2023 Average glucose Estimated from glycated hemoglobin (Bld) [Mass/Vol] 169 mg/dL [facility] Hematocrit [Volume Fraction] of Blood by Automated countOrdered By: Светлана Erazo on 02-03-2023 Hematocrit (Bld) [Volume fraction] 37.7 % Low 38.8-50.0 [facility] Comment on above: Order Comment: Reaso n for Exam Type 2 diabetes mellitus without complication, without long- Performed By: #### U A, A1C WTH eA, CBC, URMACRERAT, CMP, LIPID #### [facility] [address] [place] [id number] [place] Hemoglobin A1c percentageOrd ered By: Светлана Erazo on 02-03-2023 HbA1c (Bld) [Mass fraction] 7.5 % High 4.3-5.6 [facility] Comment on above: Increased risk for [...] WTH eA, CBC, URMACRERAT, CMP, LIPID #### [facility] [address] [place] [address] [place] Hemoglobin [Mass/volume] in BloodOrdered By: Светлана Erazo on 02-03-2023 Hemoglobin (Bld) [Mass/Vol] 12.8 g/dL Low 13.0-17.0 [facility] Comment on above: Order Comment: Reaso n for Exam Type 2 diabetes mellitus without complication, without long- Performed By: #### U A, A1C WTH eA, CBC, URMACRERAT, CMP, LIPID #### [facility] [address] Ketones Auto test strip (U) [Mass/Vol]Ordered By: Светлана Erazo on 02-03-2023 Ketones (U) [Mass/Vol] Negative Negative [facility] Leukocytes [#/volume] correc dariana for nucleated erythrocytes in Blood by Automated counOrdered By: Светлана Erazo on 02-03-2023 WBC corrected for nucl RBC Auto (Bld) [#/Vol] 6.5 10*3/uL 4.1-10.5 [facility] Leukocytes [#/volume] in Blo od by Automated countOrdered By: Светлана Erazo on 02-03-2023 WBC (Bld) [#/Vol] 6.5 10*3/uL Normal 4.1-10.5 [facility] Comment on above: Order Comment: Reaso n for Exam Type 2 diabetes mellitus without complication, without long- Performed By: #### U A, A1C WTH eA, CBC, URMACRERAT, CMP, LIPID #### [facility] [address] Lipid Panelon 02-03-2023 LDL Cholesterol,Calculated 129 mg/dL High 0-100 [facility] Comment on above: Order Comment: [...] WTH eA, CBC, URMACRERAT, CMP, LIPID #### [facility] [address] Triglyceride w/Reflex 222 mg/dL High 0-149 [facility] Comment on above: Order [...] WTH eA, CBC, URMACRERAT, CMP, LIPID #### [facility] [address] VLDL CHOLESTEROL 44 mg/dL Normal [facility] Comment on above: Order Comment: Reaso n for Exam Type 2 diabetes mellitus without complication, without long- Performed By: #### U A, A1C WTH eA, CBC, URMACRERAT, CMP, LIPID #### [facility] [address] Lymphocytes [#/volume] in Bl ood by Automated countOrdered By: Светлана Mast on 02-03-2023 Lymphocytes (Bld) [#/Vol] 2.4 10*3/uL Normal 1.00-4.8 [facility] Comment on above: Order Comment: Reaso n for Exam Type 2 diabetes mellitus without complication, without long- Performed By: #### U A, A1C WTH eA, CBC, URMACRERAT, CMP, LIPID #### [facility] [address] Lymphocytes/100 leukocytes i n Blood by Automated countOrdered By: Светлана Mast on 02-03-2023 Lymphocytes/100 WBC (Bld) 36.5 % Normal . [facility] Comment on above: Order Comment: Reaso n for Exam Type 2 diabetes mellitus without complication, without long- Performed By: #### U A, A1C WTH eA, CBC, URMACRERAT, CMP, LIPID #### [facility] [address] [place] [address] [place] MCH [Entitic mass] by Automa dariana countOrdered By: Светлана Mast on 02-03-2023 MCH (RBC) [Entitic mass] 30.3 pg Normal 27.5-35.2 [facility] Comment on above: Order Comment: Reaso n for Exam Type 2 diabetes mellitus without complication, without long- Performed By: #### U A, A1C WTH eA, CBC, URMACRERAT, CMP, LIPID #### [facility] [address] MCHC Auto (RBC) [Mass/Vol]Or dered By: Светлана Erazo on 02-03-2023 MCHC (RBC) [Mass/Vol] 34.0 g/dL 32.5-35.6 [facility] MCV [Entitic volume] by Auto mated countOrdered By: Светлана Erazo on 02-03-2023 MCV (RBC) [Entitic vol] 89.0 fL Normal 83.5-101 [facility] Comment on above: Order Comment: Reaso n for Exam Type 2 diabetes mellitus without complication, without long- Performed By: #### U A, A1C WTH eA, CBC, URMACRERAT, CMP, LIPID #### [facility] [address] MicroAlb Creat Ratio,Uon Creatinine, Urine (Random) 100.0 mg/dL High 14.0-26.0 [facility] Comment on above: Order Comment: Reaso n for Exam Type 2 diabetes mellitus without complication, without long- Performed By: #### U A, A1C WTH eA, CBC, URMACRERAT, CMP, LIPID #### [facility] [address] Microalbumin/Creatinine Ratio 35.0 mg/g High 0.0-30.0 [facility] Comment on above: Order Comment: Reaso n for Exam Type 2 diabetes mellitus without complication, without long- Result Comment: 30-3 00 mg/g indicates an increased risk for diabetic nephropathy. Greater than 300 mg/g is consistent with clinical nephropathy. (Am. J. Kidney Disease 1995, 25:107) PERFORMED BY: [place] [address] PATHOLOGIST ASSOCIATE EDITOR JEAN-PIERRE ALFARO M.D. Performed By: #### U A, A1C WTH eA, CBC, URMACRERAT, CMP, LIPID #### [facility] [address] Microalbumin [Mass/volume] i n UrineOrdered By: Светлана Erazo on 02-03-2023 Albumin DL <= 20 mg/L (U) [Mass/Vol] 3.5 mg/dL High 0.0-1.8 [facility] Comment on above: Order Comment: Reaso n for Exam Type 2 diabetes mellitus without complication, without long- Performed By: #### U A, A1C WTH eA, CBC, URMACRERAT, CMP, LIPID #### [facility] [address] Neutrophils [#/volume] in Bl ood by Automated countOrdered By: Светлана Erazo on 02-03-2023 Neutrophils (Bld) [#/Vol] 3.2 10*3/uL Normal 1.8-7.7 [facility] Comment on above: Order Comment: Reaso n for Exam Type 2 diabetes mellitus without complication, without long- Performed By: #### U A, A1C WTH eA, CBC, URMACRERAT, CMP, LIPID #### [facility] [address] Nitrite Test strip Ql (U)Ord ered By: Светлана Erazo on 02-03-2023 Nitrite Ql (U) Negative Negative [facility] No Panel InformationOrdered By: Светлана Erazo on 02-03-2023 Estimated GFR (CKD-EPI) 59.660 mL/Min [facility] Creatinine Clearance (Chem N/A [facility] Nucleated erythrocytes [Pres ence] in Blood by Automated countOrdered By: Светлана Erazo on 02-03-2023 Nucleated RBC Auto Ql (Bld) 0.1 /100{WBC} 0-0.5 [facility] Platelet mean volume [Entiti c volume] in Blood by Automated countOrdered By: Светлана Erazo on 02-03-2023 Platelet mean volume (Bld) [Entitic vol] 9.3 fL Normal 6.6-10.1 [facility] Comment on above: Order Comment: Reaso n for Exam Type 2 diabetes mellitus without complication, without long- Performed By: #### U A, A1C WTH eA, CBC, URMACRERAT, CMP, LIPID #### [facility] [address] [place] [id number] [place] Platelets [#/volume] in Bloo d by Automated countOrdered By: Светлана Erazo on 02-03-2023 Platelets (Bld) [#/Vol] 156 10*3/uL Normal 150-450 [facility] Comment on above: Order Comment: Reaso n for Exam Type 2 diabetes mellitus without complication, without long- Performed By: #### U A, A1C WTH eA, CBC, URMACRERAT, CMP, LIPID #### [facility] [address] [place] [id number] [facility] Potassium [Moles/volume] in Serum or PlasmaOrdered By: Светлана Erazo on 02-03-2023 Potassium [Moles/Vol] See comment 3.5-5.1 [facility] Comment on above: Specimen hemolyzed, redraw requested Protein Auto test strip (U) [Mass/Vol]Ordered By: Светлана Erazo on 02-03-2023 Protein (U) [Mass/Vol] Negative Negative [facility] Protein [Mass/volume] in Ser um or PlasmaOrdered By: Светлана Erazo on 02-03-2023 Protein [Mass/Vol] 7.2 g/dL Normal 6.4-8.9 [facility] Comment on above: Order Comment: Reaso n for Exam Type 2 diabetes mellitus without complication, without long- Performed By: #### U A, A1C WTH eA, CBC, URMACRERAT, CMP, LIPID #### [facility] [address] [place] [id number] [facility] Serum globulin measurement b y calculation (mass/volume)Ordered By: Светлана Erazo on 02-03-2023 Globulin (S) [Mass/Vol] 2.7 g/dL Normal [facility] Comment on above: Order Comment: Reaso n for Exam Type 2 diabetes mellitus without complication, without long- Performed By: #### U A, A1C WTH eA, CBC, URMACRERAT, CMP, LIPID #### [facility] [address] [place] [address] [place] Serum or plasma albumin/glob ulin mass ratioOrdered By: Светлана Erazo on 02-03-2023 Albumin/Globulin [Mass ratio] 1.7 {ratio} Normal [facility] Comment on above: Order Comment: Reaso n for Exam Type 2 diabetes mellitus without complication, without long- Performed By: #### U A, A1C WTH eA, CBC, URMACRERAT, CMP, LIPID #### [facility] [address] Serum or plasma anion gap de terminationOrdered By: Светлана Erazo on 02-03-2023 Anion gap [Moles/Vol] TNP [facility] Comment on above: Test not performed Serum or plasma high density lipoprotein (HDL) cholesterol measurementOrdered By: Светлана Erazo on 02-03-2023 Cholesterol in HDL [Mass/Vol] 29 mg/dL Normal 23-92 [facility] Comment on above: HDL CHOL ATP-III [...] WTH eA, CBC, URMACRERAT, CMP, LIPID #### [facility] [address] Serum or plasma total choles terol/high density lipoprotein (HDL) cholesterol mass ratOrdered By: Светлана Erazo on 02-03-2023 Cholesterol.total/Lisbeth sterol in HDL [Mass ratio] 7.0 {ratio} Normal <5.0 [facility] Comment on above: Order Comment: Reaso n for Exam Type 2 diabetes mellitus without complication, without long- Result Comment: PERF ORMED BY: [place] [address] PATHOLOGIST ASSOCIATE EDITOR JEAN-PIERRE ALFARO M.D. Performed By: #### U A, A1C WTH eA, CBC, URMACRERAT, CMP, LIPID #### [facility] [address] [place] [address] [place] Sodium [Moles/volume] in Ser um or PlasmaOrdered By: Светлана Mast on 02-03-2023 Sodium [Moles/Vol] 138 mmol/L Normal 136-145 [facility] Comment on above: Order Comment: Reaso n for Exam Type 2 diabetes mellitus without complication, without long- Performed By: #### U A, A1C WTH eA, CBC, URMACRERAT, CMP, LIPID #### [facility] [address] Specific gravity Auto test s trip (U) [Rel density]Ordered By: Светланаsegundo Erazo on 02-03-2023 Specific gravity (U) [Rel density] 1.018 1.001-1.030 [facility] Triglyceride [Mass/volume] i n Serum or PlasmaOrdered By: Светланаsegundo Erazo on 02-03-2023 Triglyceride [Mass/Vol] 222 mg/dL 0-149 F [facility] Comment on above: TRIG ATP III CLASSIF ICATIONTRIG less than 150 mg/dL NormalTRIG 150-199 mg/dL Borderline highTRIG 200-500 mg/dL High TRIG greater than 500 mg/dL Very highStandard traceable to the Center for Disease Conrtrol and Prevention (CDC) test method. Urea nitrogen [Mass/volume] in Serum or PlasmaOrdered By: Всетланаsegundo Erazo on 02-03-2023 Urea nitrogen [Mass/Vol] 30 mg/dL High 7-25 [facility] Comment on above: Order Comment: Reaso n for Exam Type 2 diabetes mellitus without complication, without long- Performed By: #### U A, A1C WTH eA, CBC, URMACRERAT, CMP, LIPID #### [facility] [address] Urinalysison 02-03-2023 Appearance (U) Clear Normal Clear [facility] Comment on above: Order Comment: Reaso n for Exam Gross hematuria Name Collection Type:: Voided Performed By: #### U A, A1C WTH eA, CBC, URMACRERAT, CMP, LIPID #### [facility] [address] Bilirubin,Urine Negative Normal Negative [facility] Comment on above: Order Comment: Reaso n for Exam Gross hematuria Name Collection Type:: Voided Performed By: #### U A, A1C WTH eA, CBC, URMACRERAT, CMP, LIPID #### [address] Glucose Ql (U) Normal Normal Normal [facility] Comment on above: Order Comment: Reaso n for Exam Gross hematuria Name Collection Type:: Voided Performed By: #### U A, A1C WTH eA, CBC, URMACRERAT, CMP, LIPID #### [address] Ketones Ql (U) Negative Normal Negative [facility] Comment on above: Order Comment: Reaso n for Exam Gross hematuria Name Collection Type:: Voided Performed By: #### U A, A1C WTH eA, CBC, URMACRERAT, CMP, LIPID #### [address] Leukocyte esterase Test strip Ql (U) Negative Normal Negative [facility] Comment on above: Order Comment: Reaso n for Exam Gross hematuria Name Collection Type:: Voided Performed By: #### U A, A1C WTH eA, CBC, URMACRERAT, CMP, LIPID #### [address] Nitrite,Urine Negative Normal Negative [facility] Comment on above: Order Comment: Reaso n for Exam Gross hematuria Name Collection Type:: Voided Performed By: #### U A, A1C WTH eA, CBC, URMACRERAT, CMP, LIPID #### [address] Occult Blood,Urine Negative Normal Negative [facility] Comment on above: Order Comment: Reaso n for Exam Gross hematuria Name Collection Type:: Voided Result Comment: PERF ORMED BY: [place] [address] PATHOLOGIST ASSOCIATE EDITOR JEAN-PIERRE ALFARO M.D. Performed By: #### U A, A1C WTH eA, CBC, URMACRERAT, CMP, LIPID #### [address] Protein,Urine Negative Normal Negative [facility] Comment on above: Order Comment: Reaso n for Exam Gross hematuria Name Collection Type:: Voided Performed By: #### U A, A1C WTH eA, CBC, URMACRERAT, CMP, LIPID #### [facility] [address] Specificy [place],Urine 1.018 Normal 1.001-1.030 [facility] Comment on above: Order Comment: Reaso n for Exam Gross hematuria Name Collection Type:: Voided Performed By: #### U A, A1C WTH eA, CBC, URMACRERAT, CMP, LIPID #### [facility] [address] Urobilinogen,Urine Normal Normal Normal [facility] Comment on above: Order Comment: Reaso n for Exam Gross hematuria Name Collection Type:: Voided Performed By: #### U A, A1C WTH eA, CBC, URMACRERAT, CMP, LIPID #### [facility] [address] [place] [id number] [facility] Urine clarity by refractomet ry automatedOrdered By: Светлана Erazo on 02-03-2023 Clarity Refractometry automated (U) Clear Clear [facility] Urine glucose measurement by automated test strip (mass/volume)Ordered By: Светлана Erazo on 02-03-2023 Glucose Auto test strip (U) [Mass/Vol] Normal mg/dL Normal [facility] Urine hemoglobin detection b y automated test stripOrdered By: Светлана Erazo on 02-03-2023 Hemoglobin Auto test strip Ql (U) Negative Negative [facility] Urine leukocyte esterase det ection by automated test stripOrdered By: Светлана Erazo on 02-03-2023 Leukocyte esterase Auto test strip Ql (U) Negative Negative [facility] Urine microalbumin/creatinin e mass ratioOrdered By: Светлана Erazo on 02-03-2023 Albumin/Creatinine DL <= 20 mg/L (U) [Mass ratio] 35.0 mg/g 0.0-30.0 [facility] Comment on above: 30-300 mg/g indicate s an increased risk for diabetic nephropathy. Greater than 300 mg/g is consistent with clinical nephropathy. (Am. J. Kidney Disease 1995, 25:107) Urine pH measurement by auto mated test stripOrdered By: Светлана Erazo on 02-03-2023 pH (U) 5.0 [pH] Normal 5.0-9.0 [facility] Comment on above: Order Comment: Reaso n for Exam Gross hematuria Name Collection Type:: Voided Performed By: #### U A, A1C WTH eA, CBC, URMACRERAT, CMP, LIPID #### [facility] [address] Urobilinogen Auto test strip (U) [Mass/Vol]Ordered By: Светлана Erazo on 02-03-2023 Urobilinogen (U) [Mass/Vol] Normal mg/dL Normal [facility] Laboratory - Molecular patho logyon 06-27-2022 Noninvasive colorectal cancer DNA and occult blood screening Ted (Stl) [Interp] Positive Abnormal Negative -[facility] Work Phone: Comment on above: [facility] [employer] (CLIA #:[id number])[address] [place] [address] DEBBY BARRIOS , Clinical Laboratory Medical DirectorPOSITIVE [...] (Berto Olmstead al, N Engl J Med 2014;370(14):5279-1507.) Cologuard may produce a false negative or false positive result (no colorectal cancer or precancerous polyp present at colonoscopy follow up). A negative Cologuard test result does not guarantee the absence of CRC or advanced adenoma (pre-cancer). The current Cologuard screening interval is every 3 years. ([place] [employer] Society and U.S. Multi-Society Task Force). Cologuard performance data in a 10,000 patient pivotal study using colonoscopy as the reference method can be accessed at the following location: www.Xquva/results. Additional description of the Cologuard test process, warnings and precautions can be found at www.SpeechVive. Blood Pressure Cuff Sizeon 1 08-15-2021 Adult depression screening assessment No [facility] Work Phone: Fall risk assessment a) No falls within the last year [employer] Work Phone: Tobacco use status CPHS b) No M [facility] Work Phone: Blood Pressure Cuff Size Adult [employer] Work Phone: Office Visit (Internal Medic ine)on 06-14-2022 Follow-up visit Diagnoses/Problems Assessed Screening for colorectal cancer (V76.51,V76.41) (Z12.11,Z12.12) Type 2 diabetes mellitus (250.00) (E11.9) HTN (hypertension) (401.9) (I10) Orders HTN (hypertension) Continue: Lisinopril 10 MG Oral Tablet; Take 1 tablet daily Rx By: Jaylon Ulloa; Dispense: 0 Days ; #:90 Tablet; Refill: 3;For: HTN (hypertension); YADI = N; Verified Transmission to [facility]; Last Updated By: Nakia Buckley; 06/14/2022 9:05:16 AM Screening for colorectal cancer Cologuard Screening; Status:Active; Requested for:[id number]; Perform:Cologuard Non [facility]; Due:12Sep2022;Ordered ; For:Screening for [...] mellitus; YADI = N; Verified Transmission to [facility] [id number]; Last Updated By: Nakia Buckley; 06/14/2022 9:05:16 AM Continue: OneTouch Delica Plus [id number]; Use 3 times daily as directed Rx [...] mellitus; YADI = N; Verified Transmission to [facility]; Last Updated By: Nakia Buckley; 06/14/2022 9:05:16 AM Patient Discussion/Summary cologuard follow 5--6 months mohamud discussed...declines get cards dr. pablo e(dr majano.. [facility]) same program Provider Impressions dm [...] included)... Normal [facility] BASIC METABOLIC PANELon 12-0 Anion gap [Moles/Vol] 13 mmol/L Normal 10 - 20 [facility] Comment on above: Order Comment: PATIE NT FASTING Performed By: #### B MP #### [facility] [address] [place] [address] Calcium [Mass/Vol] 9.9 mg/dL Normal 8.6 - 10.6 [facility] Comment on above: Order Comment: PATIE NT FASTING Performed By: #### B MP #### [facility] [address] [place] [address] Chloride [Moles/Vol] 103 mmol/L Normal 98 - 107 [facility] Comment on above: Order Comment: PATIE NT FASTING Performed By: #### B MP #### [facility] [address] [place] [address] Creatinine [Mass/Vol] 1.33 mg/dL High 0.50 - 1.30 [facility] Comment on above: Order Comment: PATIE NT FASTING Performed By: #### B MP #### [facility] [address] [address] GFR/1.73 sq M.predicted among non-blacks MDRD (S/P/Bld) [Vol rate/Area] 59 mL/min/{1.73_m2} Abnormal >90 [facility] Comment on above: Order Comment: PATIE NT FASTING Result Comment: CALC ULATIONS OF ESTIMATED GFR ARE PERFORMED USING THE 2020 CKD-EPI STUDY REFIT EQUATION WITHOUT THE RACE VARIABLE FOR THE IDMS-TRACEABLE CREATININE METHODS. https://jasn.asnjournals.org/content/early//ASN.2020 166424 Performed By: #### B MP #### [facility] [address] [address] Glucose [Mass/Vol] 177 mg/dL High 74 - 99 [facility] Comment on above: Order Comment: PATIE NT FASTING Performed By: #### B MP #### [facility] [address] [place] [address] HCO3 (Bld) [Moles/Vol] 26 mmol/L Normal 21 - 32 [facility] Comment on above: Order Comment: PATIE NT FASTING Performed By: #### B MP #### [facility] [address] [place] [address] Potassium [Moles/Vol] 5.3 mmol/L Normal 3.5 - 5.3 [facility] Comment on above: Order Comment: PATIE NT FASTING Performed By: #### B MP #### [facility] [address] [place] [address] Sodium [Moles/Vol] 137 mmol/L Normal 136 - 145 [facility] Comment on above: Order Comment: PATIE NT FASTING Performed By: #### B MP #### [facility] [address] [place] [address] Urea nitrogen [Mass/Vol] 31 mg/dL High 6 - 23 [facility] Comment on above: Order Comment: PATIE NT FASTING Performed By: #### B MP #### [facility] [address] [place] [address] HEMOGLOBIN A1Con 06-07-2022 Glucose [Mass/Vol] 160 mg/dL Normal [facility] Comment on above: Order Comment: PATIE NT FASTING Performed By: #### H BA1E #### [facility] [address] [place] [address] HbA1c (Bld) [Mass fraction] 7.2 % Abnormal [facility] Comment on above: Order Comment: PATIE NT FASTING Result Comment: Diag nosis of Diabetes-Adults Non-Diabetic: < or = 5.6% Increased risk for developing diabetes: 5.7-6.4% Diagnostic of diabetes: > or = 6.5% . Monitoring of Diabetes Age (y) Therapeutic Goal (%) Adults: >18 <7.0 Pediatrics: 13-18 <7.5 7-12 <8.0 0- 6 7.5-8.5 [employer]. Diabetes Care 33(S1), Jun 2009. Performed By: #### H BA1E #### [facility] [address] [place] [address] Hemoglobin A1Con 06-07-2022 Glucose [Mass/Vol] 160 mg/dL [facility] Work Phone: HbA1c (Bld) [Mass fraction] 7.2 % Abnormal [facility] Work Phone: Comment on above: Diagnosis of Diabete s-Adults Non-Diabetic: < or = 5.6% Increased risk for developing diabetes: 5.7-6.4% Diagnostic of diabetes: > or = 6.5%. Monitoring of Diabetes Age (y) Therapeutic Goal (%) Adults: >18 <7.0 Pediatrics: 13-18 <7.5 7-12 <8.0 0- 6 7.5-8.5 [employer]. Diabetes Care 33(S1), Jun 2009. LIPID PANEL (CORONARY RISK 2 )on 06-07-2022 Cholesterol [Mass/Vol] 196 mg/dL Normal 0 - 199 [facility] Comment on above: Order Comment: PATIE NT [...] dosing. Performed By: #### L IPID #### [facility] [address] [address] Cholesterol in HDL [Mass/Vol] 30.1 mg/dL Abnormal [facility] Comment on above: Order Comment: PATIE NT FASTING Result Comment: . AGE VERY LOW LOW NORMAL HIGH 0-19 Y < 35 < 40 40-45 ---- 20-24 Y ---- < 40 >45 ---- >24 Y ---- < 40 40-60 >60 . Performed By: #### L IPID #### [facility] [address] [place] [address] Cholesterol in LDL [Mass/Vol] 134 mg/dL High 0 - 99 [facility] Comment on above: Order Comment: PATIE NT FASTING Result Comment: . NEAR BORD AGE DESIRABLE OPTIMAL HIGH HIGH VERY HIGH 0-19 Y 0 - 109 --- 110-129 >/= 130 ---- 20-24 Y 0 - 119 --- 120-159 >/= 160 ---- >24 Y 0 - 99 100-129 130-159 160-189 >/=190 . Performed By: #### L IPID #### [facility] [address] [place] [address] Cholesterol in VLDL [Mass/Vol] 32 mg/dL Normal 0 - 40 [facility] Comment on above: Order Comment: PATIE NT FASTING Performed By: #### L IPID #### [facility] [address] [place] [address] Cholesterol.total/Lisbeth sterol in HDL [Mass ratio] 6.5 {ratio} Abnormal [facility] Comment on above: Order Comment: PATIE NT FASTING Result Comment: REF VALUES DESIRABLE < 3.4 HIGH RISK > 5.0 Performed By: #### L IPID #### [facility] [address] [place] [address] Triglyceride [Mass/Vol] 160 mg/dL High 0 - 149 [facility] Comment on above: Order [...] Performed By: #### L IPID #### [facility] [address] [place] [address] Laboratory - Chemistry and C hemistry - challengeon 06-07-2022 Anion gap [Moles/Vol] 13 mmol/L 10 - 20 [facility] Work Phone: Calcium [Mass/Vol] 9.9 mg/dL 8.6 - 10.6 -Juliane ect [facility] Work Phone: Chloride [Moles/Vol] 103 mmol/L 98 - 107 -S elect [facility] Work Phone: CO2 [Moles/Vol] 26 mmol/L 21 - 32 -[facility] Work Phone: Creatinine [Mass/Vol] 1.33 mg/dL above high threshold See Below [facility] Work Phone: Comment on above: Reference Range: 0.5 0 - 1.30 Glucose [Mass/Vol] 177 mg/dL above high threshold 74 - 99 -[facility] Work Phone: Potassium [Moles/Vol] 5.3 mmol/L 3.5 - 5.3 - [facility] Work Phone: Sodium [Moles/Vol] 137 mmol/L 136 - 145 -Juliane [facility] Work Phone: Urea nitrogen [Mass/Vol] 31 mg/dL above high threshold 6 - 23 -[facility] Work Phone: Lipid Panelon 06-07-2022 Cholesterol [Mass/Vol] 196 mg/dL 0 - 199 -[facility] Work Phone: Comment on above: . AGE [...] Cholesterol in HDL [Mass/Vol] 30.1 mg/dL Abnormal -[facility] Work Phone: Comment on above: . AGE VERY LOW LOW N ORMAL HIGH 0-19 Y < 35 < 40 40-45 ---- 20-24 Y ---- < 40 >45 ---- >24 Y ---- < 40 40-60 >60. Cholesterol in LDL [Mass/Vol] 134 mg/dL above high threshold 0 - 99 [facility] Work Phone: Comment on above: . NEAR BORD AGE PATRICIA RABLE OPTIMAL HIGH HIGH VERY HIGH 0-19 Y 0 - 109 --- 110-129 >/= 130 ---- 20-24 Y 0 - 119 --- 120-159 >/= 160 ---- >24 Y 0 - 99 100-129 130-159 160-189 >/=190. Cholesterol.total/Lisbeth sterol in HDL [Mass ratio] 6.5 {ratio} Abnormal [employer] [employer] [facility] Work Phone: Comment on above: REF VALUESDESIRABLE < 3.4HIGH RISK > 5.0 Triglyceride [Mass/Vol] 160 mg/dL above hi gh threshold 0 - 149 [employer] Work Phone: Comment on above: . AGE [...] Lipid Panel 32 mg/dL 0 - 40 [employer] [facility] Work Phone: No Panel Informationon 06-07 59 {mL/min/1.73m2} Abnormal >90 [employer] [employer] [facility] Work Phone: Comment on above: CALCULATIONS OF KHADAR MATED GFR ARE PERFORMED USING THE 2020 CKD-EPI STUDY REFIT EQUATION WITHOUT THE RACE VARIABLE FOR THE IDMS-TRACEABLE CREATININE METHODS.https://jasn.asnjournals.org/content// ASN.2176220981 Blood Pressure Cuff Sizeon 0 01-18-2022 Fall risk assessment a) No falls within the last year [employer] [employer] [facility] Work Phone: Tobacco use status CPHS b) No M [employer] [facility] Work Phone: Blood Pressure Cuff Size Adult [employer] Work Phone: IO Hgb A1Con 01-18-2022 HbA1c (Bld) [Mass fraction] 7.1 % 4.2-6.5% -[facility] Work Phone: Office Visit (Internal Medic ine)on 01-18-2022 Follow-up visit Diagnoses/Problems Assessed Type 2 diabetes mellitus (250.00) (E11.9) HTN (hypertension) (401.9) (I10) Orders HTN (hypertension) Renew: Lisinopril 10 MG Oral Tablet; Take 1 tablet daily Rx By: Jaylon Ulloa; Dispense: 0 Days ; #:90 Tablet; Refill: 3;For: HTN (hypertension); YADI = N; Verified Transmission to [facility]; Last Updated By: [employer]; 01/18/2022 1:36:13 PM Type 2 diabetes mellitus Renew: Basaglar KwikPen 100 UNIT/ML Subcutaneous Solution Pen-injector; INJECT 15 UNIT Daily Rx By: Jaylon Ulloa; Dispense: 90 Days ; #:1 X 5 x 3 ML Pen; Refill: 3;For: Type 2 diabetes mellitus; YADI = N; Verified Transmission to [facility]; Last Updated By: [employer] [facility]; 01/18/2022 1:36:13 PM Basic Metabolic Panel; Status:Active; Requested for:[id number]; Perform:Lab Services - Lab To Draw (Blood Test); Due:18Apr2022;Ordered ; For:Type 2 diabetes mellitus; Ordered By:Jaylon Ulloa; Renew: BD Pen Needle Sadaf U/F 32G X 4 MM; uses 1 daily Rx By: Jaylon Ulloa; Dispense: 0 Days ; #:1 X 100 Unit Box; Refill: 3;For: Type 2 diabetes mellitus; YADI = N; Verified Transmission to [facility]; Last Updated By: [email or web address]; 01/18/2022 1:36:15 PM Hemoglobin A1C; Status:Active; Requested for:[id number]; Perform:Lab Services - Lab To Draw (Blood Test); Due:[id number];Ordered ; For:Type 2 diabetes mellitus; Ordered By:Jaylon [...] Ordered By:Jaylon Ulloa; Renew: OneTouch Delica Plus [id number]; Use 3 times daily as directed Rx [...] of Present Illnesscards appt. 2021 dr majano ([facility]) r. arm issue resolved hgm fbs 140--150s..seems [...] Recorded By: Jaylon Ulloa; 10/26/2013 1:04:52 PM [facility] TABS Recorded By: Jaylon Ulloa; 04/22/ (more content not included)... Normal [facility] Activated partial thrombopla stin time (aPTT) in platelet poor plasma by coagulation aOrdered By: Darien Florentino on 12-07-2021 aPTT Coag (PPP) [Time] 33.3 s 25.1-36.5 [facility] Albumin [Mass/volume] in Ser um or PlasmaOrdered By: Darien Florentino on 12-07-2021 Albumin [Mass/Vol] 4.4 g/dL 3.2-5.5 [facility] Basophils Auto (Bld) [#/Vol] Ordered By: Darien Florentino on 12-07-2021 Basophils (Bld) [#/Vol] 0.1 10*3/uL 0.0-0.2 [facility] Basophils/100 WBC Auto (Bld) Ordered By: Darien Florentino on 12-07-2021 Basophils/100 WBC (Bld) 0.8 % [facility] Blood hemoglobin measurement (mass/volume)Ordered By: Darien Florentino on 12-07-2021 Hemoglobin (Bld) [Mass/Vol] 13.5 g/dL 13.0-17.0 [facility] Blood leukocytes automated c ount (number/volume)Ordered By: Darien Florentino on 12-07-2021 WBC (Bld) [#/Vol] 6.9 10*3/uL 4.5-11.0 [facility] Creatinine and Glomerular fi ltration rate.predicted panel (S/P/Bld)Ordered By: Darien Florentino on 12-07-2021 Creatinine [Mass/Vol] 1.27 mg/dL 0.64-1.27 [facility] Eosinophils Auto (Bld) [#/Vo l]Ordered By: Darien Florentino on 12-07-2021 Eosinophils (Bld) [#/Vol] 0.5 10*3/uL 0.0-0.45 [facility] Eosinophils/100 WBC Auto (Bl d)Ordered By: Darien Florentino on 12-07-2021 Eosinophils/100 WBC (Bld) 6.6 % [facility] Erythrocyte distribution wid th Auto (RBC) [Ratio]Ordered By: Darien Florentino on 12-07-2021 Erythrocyte distribution width (RBC) [Ratio] 13.1 % 12.0-14.8 [facility] Estimated glomerular filtrat ion rate (GFR) non- AmericanOrdered By: Darien Florentino on 12-07-2021 GFR/1.73 sq M.predicted among non-blacks MDRD (S/P/Bld) [Vol rate/Area] 57 mL/Min [facility] Globulin Calc (S) [Mass/Vol] Ordered By: Darien Florentino on 12-07-2021 Globulin (S) [Mass/Vol] 3.1 g/dL F [facility] Hematocrit Auto (Bld) [Volum e fraction]Ordered By: Darien Florentino on 12-07-2021 Hematocrit (Bld) [Volume fraction] 40.2 % 38.8-50.0 [facility] Laboratory - CoagulationOrde red By: Darien Florentino on 12-07-2021 PT Coag (PPP) [Time] 12.5 s 9.0-12.9 [facility] Laboratory - Hematology and Cell countsOrdered By: Darien Florentino on 12-07-2021 Nucleated RBC/100 WBC (Bld) [Ratio] 0.1 % 0-0.5 [facility] Lymphocytes Auto (Bld) [#/Vo l]Ordered By: Darien Florentino on 12-07-2021 Lymphocytes (Bld) [#/Vol] 2.6 10*3/uL 1.00-4.8 [facility] Lymphocytes/100 WBC Auto (Bl d)Ordered By: Darien Florentino on 12-07-2021 Lymphocytes/100 WBC (Bld) 36.8 % [facility] MCH Auto (RBC) [Entitic mass ]Ordered By: Darien Florentino on 12-07-2021 MCH (RBC) [Entitic mass] 30.2 pg 27.5-35.2 [facility] MCHC Auto (RBC) [Mass/Vol]Or dered By: Darien Florentino on 12-07-2021 MCHC (RBC) [Mass/Vol] 33.6 g/dL 32.5-35.6 [facility] MCV Auto (RBC) [Entitic vol] Ordered By: Darien Florentino on 12-07-2021 MCV (RBC) [Entitic vol] 89.9 fL 83.5-101 F [facility] Monocytes Auto (Bld) [#/Vol] Ordered By: Darien Florentino on 12-07-2021 Monocytes (Bld) [#/Vol] 0.5 10*3/uL 0.0-0.8 [facility] Monocytes/100 WBC Auto (Bld) Ordered By: Darien Florentino on 12-07-2021 Monocytes/100 WBC (Bld) 6.8 % F [facility] Neutrophils Auto (Bld) [#/Vo l]Ordered By: Darien Florentino on 12-07-2021 Neutrophils (Bld) [#/Vol] 3.4 10*3/uL 1.8-7.7 [facility] Neutrophils/100 WBC Auto (Bl d)Ordered By: Darien Florentino on 12-07-2021 Neutrophils/100 WBC (Bld) 49.0 % [facility] No Panel InformationOrdered By: Darien Florentino on 12-07-2021 Estimated GFR () > 60 mL/Min [facility] Comment on above: GFR estimated refere nce range: According to KDOQI guidelines, <60 ml/min/1.73m2 is sufficient to diagnose a patient with chronic kidney disease. Pharmacy Creatinine Clearance (Chem 65.08 [facility] Platelet mean volume Auto (B ld) [Entitic vol]Ordered By: Darien Florentino on 12-07-2021 Platelet mean volume (Bld) [Entitic vol] 9.0 fL 6.6-10.1 [facility] Platelet poor plasma interna tional normalized ratio (INR) by coagulation assay (relatOrdered By: Darien Florentino on 12-07-2021 INR Coag (PPP) [Relative time] 1.1 {INR} [facility] Comment on above: INR Therapeutic Rang [...] 12-07-2021 Platelets (Bld) [#/Vol] 189 10*3/uL 150-450 [facility] Protein [Mass/volume] in Ser um or PlasmaOrdered By: Darien Florentino on 12-07-2021 Protein [Mass/Vol] 7.5 g/dL 6.1-7.9 [facility] RBC Auto (Bld) [#/Vol]Ordere d By: Darien Florentino on 12-07-2021 RBC (Bld) [#/Vol] 4.48 10*6/uL 3.90-5.60 [facility] Serum or plasma alanine crawley otransferase measurement without P-5'-P (enzymatic activiOrdered By: Darien Florentino on 12-07-2021 ALT No additional P-5'-P [Catalytic activity/Vol] 74 U/L 10-60 [facility] Serum or plasma albumin/glob ulin mass ratioOrdered By: Darien Florentino on 12-07-2021 Albumin/Globulin [Mass ratio] 1.4 {ratio} [facility] Serum or plasma alkaline laurita sphatase measurement (enzymatic activity/volume)Ordered By: Darien Florentino on 12-07-2021 ALP [Catalytic activity/Vol] 50 U/L 32-92 [facility] Serum or plasma aspartate am inotransferase measurement (enzymatic activity/volume)Ordered By: Darien Florentino on 12-07-2021 AST [Catalytic activity/Vol] 38 U/L 10-42 [facility] Serum or plasma calcium vida urement (mass/volume)Ordered By: Darien Florentino on 12-07-2021 Calcium [Mass/Vol] 10.3 mg/dL 8.2-10.2 [facility] Serum or plasma chloride jennifer surement (moles/volume)Ordered By: Darien Florentino on 12-07-2021 Chloride [Moles/Vol] 101 mmol/L 95-114 [facility] Serum or plasma glucose vida urement (mass/volume)Ordered By: Darien Florentino on 12-07-2021 Glucose [Mass/Vol] 178 mg/dL 70-100 [facility] Comment on above: ADA recommended refe rence range Random Glucose Reference Range is dependent on time and content of last meal. Glucose of more than 200 mg/dL in a nonstressed, ambulatory subject supports the diagnosis of Diabetes Mellitus. Serum or plasma potassium me asurement (moles/volume)Ordered By: Darien Florentino on 12-07-2021 Potassium [Moles/Vol] 4.6 mmol/L 3.5-5.1 [facility] Serum or plasma sodium measu rement (moles/volume)Ordered By: Darien Florentino on 12-07-2021 Sodium [Moles/Vol] 136 mmol/L 136-146 [facility] Serum or plasma total biliru bin measurement (mass/volume)Ordered By: Darien Florentino on 12-07-2021 Bilirubin [Mass/Vol] 0.5 mg/dL 0.3-1.2 [facility] Serum or plasma total carbon dioxide measurement (moles/volume)Ordered By: Darien Florentino on 12-07-2021 CO2 [Moles/Vol] 25.7 mmol/L 22.0-30.0 [facility] Serum or plasma urea nitroge n measurement (mass/volume)Ordered By: Darien Florentino on 12-07-2021 Urea nitrogen [Mass/Vol] 22 mg/dL 9-23 [facility] Troponin I.cardiac [Mass/vol ume] in Serum or Plasma by High sensitivity methodOrdered By: Darien Florentino on 12-07-2021 Troponin I.cardiac High sensitivity method [Mass/Vol] 5 pg/mL 0-20 [facility] [facility] CARDIAC SCORINGon 022 CT CARDIAC SCORING Patient Name: GRETEL BAINS STUDY: CT CARDIAC SCORING; 10/22/2021 12:08 pm INDICATION: none E78.00: Hypercholesteremia. COMPARISON: None. ACCESSION NUMBER(S): [id number] ORDERING CLINICIAN: JAYLON ULLOA TECHNIQUE: Using prospective [...] coronary heart disease events. According to the [employer] Clinical Expert Consensus [...] modify other non-lipid coronary risk factors. Reference: Santa P et al. Circulation. 2007; 115:402-426 Electronically signed by: YASMANI RYDER MD Normal [facility] CT Cardiac Scoringon 022 CT Cardiac Scoring Normal [facility] Work Phone: Office Visit (Internal Medic ine)on 07-20-2021 Follow-up visit Diagnoses/Problems Assessed Hypercholesteremia (272.0) (E78.00) Type 2 diabetes mellitus (250.00) (E11.9) Orders HTN (hypertension) Continue: Lisinopril 10 MG Oral Tablet; Take 1 tablet daily Rx By: Jaylon Ulloa; Dispense: 0 Days ; #:90 Tablet; Refill: 3;For: HTN (hypertension); YADI = N; Verified Transmission to [facility] [id number]; Last Updated By: Nakia Buckley; 07/20/2021 8:55:[address] Cardiac Scoring; Status:Hold For - Scheduling; Requested for:20Jul2021; Perform:[facility]; Due:18Oct2021;Ordered ; For:Hypercholesteremi [...] mellitus; YADI = N; Verified Transmission to [facility] [id number]; Last Updated By: Nakia Buckley; 07/20/2021 8:55:03 AM Continue: metFORMIN HCl ER 500 MG Oral Tablet Extended Release 24 Hour; TAKE 1 TABLET 3 times daily Rx By: Jaylon Ulloa; Dispense: 90 Days ; #:270 Tablet; Refill: 3;For: Type 2 diabetes mellitus; YADI = N; Verified Transmission to [facility] [id number]; Last Updated By: Nakia Buckley; 07/20/2021 8:55:03 AM Continue: OneTouch Delica Plus [id number]; Use 3 times daily as directed Rx [...] mellitus; YADI = N; Verified Transmission to [facility] [id number]; Last Updated By: Nakia Buckley; 07/20/2021 8:55:03 [...] TABLET 3 times daily OneTouch Delica Plus [id number] 3 times daily as directed OneTouch Ultra In Vitro StripUSE TO TEST BLOOD GLUCOSE LEVELS 3 TIMES A DAY (more content not included)... Normal [facility] BASIC METABOLIC PANELon 12-2 Anion gap [Moles/Vol] 14 mmol/L Normal 10 - 20 [facility] Comment on above: Performed By: #### B MP #### [facility] [address] [address] Calcium [Mass/Vol] 9.9 mg/dL Normal 8.6 - 10.6 [facility] Comment on above: Performed By: #### B MP #### [facility] [address] [address] Chloride [Moles/Vol] 101 mmol/L Normal 98 - 107 [facility] Comment on above: Performed By: #### B MP #### [facility] [address] [address] Creatinine [Mass/Vol] 1.25 mg/dL Normal 0.50 - 1.30 [facility] Comment on above: Performed By: #### B MP #### [facility] [address] [address] GFR- AM. 70 mL/min/1.73m2 Normal >60 [facility] Comment on above: Result Comment: CALC ULATIONS OF ESTIMATED GFR ARE PERFORMED USING THE MDRD STUDY EQUATION FOR THE IDMS-TRACEABLE CREATININE METHODS. CLIN CHEM 2007;53:766-72 Performed By: #### B MP #### [facility] [address] [address] GFR-NON AM. 58 mL/min/1.73m2 Abnormal >60 [facility] Comment on above: Performed By: #### B MP #### [facility] [address] [address] Glucose [Mass/Vol] 186 mg/dL High 74 - 99 [facility] Comment on above: Performed By: #### B MP #### [facility] [address] [address] HCO3 (Bld) [Moles/Vol] 28 mmol/L Normal 21 - 32 [facility] Comment on above: Performed By: #### B MP #### [facility] [address] [place] [address] Potassium [Moles/Vol] 4.8 mmol/L Normal 3.5 - 5.3 [facility] Comment on above: Performed By: #### B MP #### [facility] [address] [address] Sodium [Moles/Vol] 138 mmol/L Normal 136 - 145 [facility] Comment on above: Performed By: #### B MP #### [facility] [address] [place] [address] Urea nitrogen [Mass/Vol] 21 mg/dL Normal 6 - 23 [facility] Comment on above: Performed By: #### B MP #### [facility] [address] [place] [address] HEMOGLOBIN A1Con 06-25-2021 Glucose [Mass/Vol] 163 mg/dL Normal [facility] Comment on above: Performed By: #### H BA1E #### [facility] [address] [place] [address] HbA1c (Bld) [Mass fraction] 7.3 % Abnormal [facility] Comment on above: Result Comment: Diag nosis of Diabetes-Adults Non-Diabetic: < or = 5.6% Increased risk for developing diabetes: 5.7-6.4% Diagnostic of diabetes: > or = 6.5% . Monitoring of Diabetes Age (y) Therapeutic Goal (%) Adults: >18 <7.0 Pediatrics: 13-18 <7.5 7-12 <8.0 0- 6 7.5-8.5 [employer]. Diabetes Care 33(S1), Jun 2009. Performed By: #### H BA1E #### [facility] [address] [address] Hemoglobin A1Con 06-25-2021 Glucose [Mass/Vol] 163 mg/dL [facility] Work Phone: HbA1c (Bld) [Mass fraction] 7.3 % Abnormal [facility] Work Phone: Comment on above: Diagnosis of Diabete s-Adults Non-Diabetic: < or = 5.6% Increased risk for developing diabetes: 5.7-6.4% Diagnostic of diabetes: > or = 6.5%. Monitoring of Diabetes Age (y) Therapeutic Goal (%) Adults: >18 <7.0 Pediatrics: 13-18 <7.5 7-12 <8.0 0- 6 7.5-8.5 [employer]. Diabetes Care 33(S1), Jun 2009. LIPID PANEL (CORONARY RISK 2 )on 06-25-2021 Cholesterol [Mass/Vol] 218 mg/dL High 0 - 199 [facility] Comment on above: Result Comment: . AGE [...] Performed By: #### L IPID #### [facility] [address] [place] [address] Cholesterol in HDL [Mass/Vol] 28.6 mg/dL Abnormal [facility] Comment on above: Result Comment: . AGE VERY LOW LOW NORMAL HIGH 0-19 Y < 35 < 40 40-45 ---- 20-24 Y ---- < 40 >45 ---- >24 Y ---- < 40 40-60 >60 . Performed By: #### L IPID #### [facility] [address] [place] [address] Cholesterol in LDL [Mass/Vol] 140 mg/dL High 0 - 99 [facility] Comment on above: Result Comment: . NEAR BORD AGE DESIRABLE OPTIMAL HIGH HIGH VERY HIGH 0-19 Y 0 - 109 --- 110-129 >/= 130 ---- 20-24 Y 0 - 119 --- 120-159 >/= 160 ---- >24 Y 0 - 99 100-129 130-159 160-189 >/=190 . Performed By: #### L IPID #### [facility] [address] [place] [address] Cholesterol in VLDL [Mass/Vol] 49 mg/dL High 0 - 40 [facility] Comment on above: Performed By: #### L IPID #### [facility] [address] [place] [address] Cholesterol.total/Lisbeth sterol in HDL [Mass ratio] 7.6 {ratio} Abnormal [facility] Comment on above: Result Comment: REF VALUES DESIRABLE < 3.4 HIGH RISK > 5.0 Performed By: #### L IPID #### [facility] [address] [place] [address] NON-HDL CHOLESTEROL 189 mg/dL Normal [facility] Comment on above: Result Comment: AGE DESIRABLE BORDERLINE HIGH HIGH VERY HIGH 0-19 Y 0 - 119 120 - 144 >/= 145 >/= 160 20-24 Y 0 - 149 150 - 189 >/= 190 ---- >24 Y 30 MG/DL ABOVE LDL CHOLESTEROL GOAL . Performed By: #### L IPID #### [facility] [address] [place] [address] Triglyceride [Mass/Vol] 247 mg/dL High 0 - 149 [facility] Comment on above: Result [...] Performed By: #### L IPID #### [facility] [address] [address] Laboratory - Chemistry and C hemistry - challengeon 06-25-2021 Anion gap [Moles/Vol] 14 mmol/L 10 - 20 [facility]- [facility] Work Phone: Calcium [Mass/Vol] 9.9 mg/dL 8.6 - 10.6 [facility] Work Phone: Chloride [Moles/Vol] 101 mmol/L 98 - 107 [facility] Work Phone: CO2 [Moles/Vol] 28 mmol/L 21 - 32 [facility] Work Phone: Creatinine [Mass/Vol] 1.25 mg/dL See Below - [facility] Work Phone: Comment on above: Reference Range: 0.5 0 - 1.30 Glucose [Mass/Vol] 186 mg/dL above high threshold 74 - 99 -[facility] Work Phone: Potassium [Moles/Vol] 4.8 mmol/L 3.5 - 5.3 - [facility] Work Phone: Sodium [Moles/Vol] 138 mmol/L 136 - 145 -[facility] Work Phone: Urea nitrogen [Mass/Vol] 21 mg/dL 6 - 23 -[facility] Work Phone: Lipid Panelon 06-25-2021 Cholesterol [Mass/Vol] 218 mg/dL above hig h threshold 0 - 199 -[facility] Work Phone: Comment on above: . AGE [...] guidelines reference: NCEP ATPIII Guidelines, DARINEL 2001, 258:5226-97. Venipuncture immediately after or during the administration of Metamizole may lead to falsely low results. Testing should be performed immediately prior to Metamizole dosing. Cholesterol in HDL [Mass/Vol] 28.6 mg/dL Abnormal [facility] Work Phone: Comment on above: . AGE VERY LOW LOW N ORMAL HIGH 0-19 Y < 35 < 40 40-45 ---- 20-24 Y ---- < 40 >45 ---- >24 Y ---- < 40 40-60 >60. Cholesterol in LDL [Mass/Vol] 140 mg/dL above high threshold 0 - 99 [facility] Work Phone: Comment on above: . NEAR BORD AGE PATRICIA RABLE OPTIMAL HIGH HIGH VERY HIGH 0-19 Y 0 - 109 --- 110-129 >/= 130 ---- 20-24 Y 0 - 119 --- 120-159 >/= 160 ---- >24 Y 0 - 99 100-129 130-159 160-189 >/=190. Cholesterol non HDL [Mass/Vol] 189 mg/dL -[facility] Work Phone: Comment on above: AGE DESIRABLE BORDER LINE HIGH HIGH VERY HIGH 0-19 Y 0 - 119 120 - 144 >/= 145 >/= 160 20-24 Y 0 - 149 150 - 189 >/= 190 ---- >24 Y 30 MG/DL ABOVE LDL CHOLESTEROL GOAL. Cholesterol.total/Lisbeth sterol in HDL [Mass ratio] 7.6 {ratio} Abnormal [employer] Work Phone: Comment on above: REF VALUESDESIRABLE < 3.4HIGH RISK > 5.0 Triglyceride [Mass/Vol] 247 mg/dL above hi gh threshold 0 - 149 [facility] Work Phone: Comment on above: . AGE [...] mg/dL above high threshold 0 - 40 [employer] Work Phone: No Panel Informationon 06-25 70 {mL/min/1.73m2} >60 MP-Juliane [facility] Work Phone: Comment on above: CALCULATIONS OF KHADAR MATED GFR ARE PERFORMED USING THE MDRD STUDY EQUATION FOR THE IDMS-TRACEABLE CREATININE METHODS. CLIN CHEM 2007;53:766-72 58 {mL/min/1.73m2} Abnormal >60 MP-Juliane [facility] Work Phone: PROSTATE SPEC.AG,SCREENon PROSTATE SPEC.AG,SCREEN 2.61 ng/mL Normal 0.00 - 4.00 [facility] Comment on above: Result Comment: The FDA requires that the method used for PSA assay be reported to the physician. Values obtained with different assay methods must not be used interchangeably. This test was performed at [facility] using the Siemens Atellica PSA method, which is a sandwich immunoassay using chemiluminescence for quantitation. The assay is approved for measurement of prostate-specific antigen (PSA) in serum and may be used in conjunction with a digital rectal examination in men 50 years and older as an aid in detection of prostate cancer. 6-Cbdrt-mjlgnrvna inhibitors (e.g. Proscar, Finasteride, Avodart, Dutasteride and Michelle) for the treatment of BPH have been shown to lower PSA levels by an average of 50% after 6 months of treatment. Performed By: #### [facility] #### [facility] [address] [address] Prostate Spec.Ag, Screenon 1 08-26-2020 Prostate specific Ag [Mass/Vol] 2.61 ng/mL See Below [facility] Work Phone: Comment on above: Reference Range: 0.0 0 - 4.00The FDA requires that the method used for PSA assay be reported to the physician. Values obtained with different assay methods must not be used interchangeably. This test was performed at [facility] using the SiemensAtellica PSA method, which is a sandwich immunoassay using chemiluminescence for quantitation. The assay is approvedfor measurement of prostate-specific antigen (PSA) in serum and may be used in conjunction with a digital rectalexamination in men 50 years and older as an aid in detection of prostate cancer. 0-Wnxpj-gnupwnvnf inhibitors (e.g. Proscar, Finasteride, Avodart, Dutasteride and Michelle) for the treatment of BPH have been shown to lower PSA levels by an average of 50% after 6 months of treatment. Blood Pressure Cuff Sizeon 0 03-07-2021 Tobacco use status HS b) No M [place] [address] DO Work Phone: Blood Pressure Cuff Size Adult [place] [address] DO Work Phone: Blood Pressure Cuff Sizeon 0 03-01-2021 Blood Pressure Cuff Size Adult [facility] Work Phone: IO Hgb A1Con 03-01-2021 HbA1c (Bld) [Mass fraction] 6.8 % 4.4-6.4% [facility] Work Phone: IO glucose, blood, finger st ick via hand held monitoron 03-01-2021 Glucose [Mass/Vol] 121 mg/dL [facility] Work Phone: Vital Signs Date Time Vital Sign Value Performing Clinician Facility 12-22-2023 08:41-0400 Body height 175.26 cm DO Светлана Mast Work Phone: [facility] 12-22-2023 08:41-0400 Body mass index (BMI) [Ratio] 29.5 kg/m2 DO Светлана Mast Work Phone: [facility] 12-22-2023 08:41-0400 Body temperature 96.8 [degF] DO Светлана Mast Work Phone: [facility] 12-22-2023 08:41-0400 Body weight 90.88 kg DO Светлана Mast Work Phone: [facility] 12-22-2023 08:41-0400 Diastolic blood pressure 70 mm[Hg] DO Светлана Mast Work Phone: [facility] 12-22-2023 08:41-0400 Heart rate 56 /min DO Светлана Mast Work Phone: [facility] 12-22-2023 08:41-0400 SaO2% (BldA) [Mass fraction] 97 % DO Светлана Mast Work Phone: [facility] 12-22-2023 08:41-0400 Systolic blood pressure 132 mm[Hg] DO Светлана Mast Work Phone: [facility] 10-16-2023 13:00-0400 Diastolic blood pressure 66 mm[Hg] DO Светлана Mast Work Phone: [facility] 10-16-2023 13:00-0400 Heart rate 54 /min DO Светлана Mast Work Phone: [facility] 10-16-2023 13:00-0400 Respiratory rate 16 /min DO Светлана Mast Work Phone: [facility] 10-16-2023 13:00-0400 SaO2% (BldA) [Mass fraction] 98 % DO Светлана Mast Work Phone: [facility] 10-16-2023 13:00-0400 Systolic blood pressure 136 mm[Hg] DO Светлана Mast Work Phone: [facility] 10-16-2023 12:08-0400 Body temperature 98 [degF] DO Светлана Mast Work Phone: [facility] 10-16-2023 11:43-0400 Inhaled oxygen flow rate 8 L/min DO Светлана Mast Work Phone: [facility] 10-16-2023 09:17-0400 Body height 175.26 cm DO Светлана Mast Work Phone: [facility] 10-16-2023 09:17-0400 Body mass index (BMI) [Ratio] 28.3 kg/m2 DO Светлана Mast Work Phone: [facility] 10-16-2023 09:17-0400 Body weight 87 kg DO Светлана Mast Work Phone: [facility] 09-18-2023 13:44-0400 Body height 177.8 cm [facility] 09-18-2023 13:44-0400 Body mass index (BMI) [Ratio] 29 kg/m2 [facility] 09-18-2023 13:44-0400 Body temperature 98.4 [degF] [facility] 09-18-2023 13:44-0400 Body weight 91.82 kg [facility] 09-18-2023 13:44-0400 Diastolic blood pressure 68 mm[Hg] [facility] 09-18-2023 13:44-0400 Heart rate 68 /min [facility] 09-18-2023 13:44-0400 SaO2% (BldA) [Mass fraction] 98 % [facility] 09-18-2023 13:44-0400 Systolic blood pressure 136 mm[Hg] [facility] 07-14-2023 08:45-0500 Body height 177.8 cm Светлана Mast Other [facility] 07-14-2023 08:45-0500 Body mass index (BMI) [Ratio] 29.97 kg/m2 Светлана Mast Other [facility] [employer] Other 07-14-2023 08:45-0500 Body weight 94.76 kg Светлана Mast Other [facility] [employer] Other 07-14-2023 08:45-0500 Body weight 94.75 kg [facility] 07-14-2023 08:45-0500 Diastolic blood pressure 72 mm[Hg] Светлана Mast Other [facility] 07-14-2023 08:45-0500 Respiratory rate 18 /min Светлана Mast Other [employer] Other 07-14-2023 08:45-0500 SaO2% (BldA) [Mass fraction] 96 % Светлана Mast Other [facility] [facility] [employer] Other 07-14-2023 08:45-0500 Systolic blood pressure 128 mm[Hg] Светлана Mast Other [facility] 06-04-2023 13:29-0500 Blood Pressure Location Devendra MINER [facility] 06-04-2023 13:29-0500 Diastolic blood pressure 83 mm[Hg] Devendra MINER [facility] 06-04-2023 13:29-0500 Heart rate 87 /min Devendra MINER [facility] 06-04-2023 13:29-0500 Respiratory rate 16 /min Devendra MINER [facility] 06-04-2023 13:29-0500 Systolic blood pressure 135 mm[Hg] Devendra MINER [facility] 06-02-2023 08:45-0500 Body height 177.8 cm Светлана Mast Other [employer] Other 06-02-2023 08:45-0500 Body mass index (BMI) [Ratio] 29.02 kg/m2 Светлана Mast Other [employer] Other 06-02-2023 08:45-0500 Body temperature 96.5 [degF] Светлана Mast Other [employer] Other 06-02-2023 08:45-0500 Body weight 91.76 kg Светлана Mast Other [employer] Other 06-02-2023 08:45-0500 Diastolic blood pressure 84 mm[Hg] Светлана Mast Other [employer] Other 06-02-2023 08:45-0500 SaO2% (BldA) [Mass fraction] 98 % Севтлана Mast Other [employer] Other 06-02-2023 08:45-0500 Systolic blood pressure 124 mm[Hg] Светлана Mast Other [employer] Other 02-27-2023 09:00-0400 Body height 177.8 cm Светлана Mast Other [employer] Other 02-27-2023 09:00-0400 Body mass index (BMI) [Ratio] 29.02 kg/m2 Светлана Mast Other [employer] Other 02-27-2023 09:00-0400 Body temperature 96.9 [degF] Светлана Mast Other [employer] Other 02-27-2023 09:00-0400 Body weight 91.76 kg Светлана Mast Other [employer] Other 02-27-2023 09:00-0400 Diastolic blood pressure 72 mm[Hg] Светлана Mast Other [employer] Other 02-27-2023 09:00-0400 SaO2% (BldA) [Mass fraction] 97 % Светлана Mast Other [employer] Other 02-27-2023 09:00-0400 Systolic blood pressure 130 mm[Hg] Светлана Mast Other [employer] Other 01-27-2023 09:15-0400 Body height 177.8 cm Светлана Mast Other [employer] Other 01-27-2023 09:15-0400 Body mass index (BMI) [Ratio] 28.89 kg/m2 Светлана Mast Other [employer] Other 01-27-2023 09:15-0400 Body temperature 96.4 [degF] Светлана Mast Other [employer] Other 01-27-2023 09:15-0400 Body weight 91.36 kg Светлана Mast Other [employer] Other 01-27-2023 09:15-0400 Diastolic blood pressure 80 mm[Hg] Светлана Mast Other [employer] Other 01-27-2023 09:15-0400 SaO2% (BldA) [Mass fraction] 98 % Светлана Mast Other [employer] Other 01-27-2023 09:15-0400 Systolic blood pressure 134 mm[Hg] Светлана Mast Other [employer] Other 06-14-2022 09:03-0500 Body height 172.72 cm Jaylon Ulloa Work Phone: [employer] Work Phone: 06-14-2022 09:03-0500 Body mass index (BMI) [Ratio] 31.78 kg/m2 Jaylon Ulloa Work Phone: [employer] Work Phone: 06-14-2022 09:03-0500 Body surface area Derived from formula 2.08 m2 Jaylon Ulloa Work Phone: [employer] Work Phone: 06-14-2022 09:03-0500 Body temperature 97.4 [degF] Jaylon Ulloa Work Phone: [employer] Work Phone: 06-14-2022 09:03-0500 Body weight 94.8 kg Jaylon Ulloa Work Phone: [employer] Work Phone: 06-14-2022 09:03-0500 Diastolic blood pressure 62 mm[Hg] Jaylon Ulloa Work Phone: -[employer] [facility] Work Phone: 06-14-2022 09:03-0500 Heart rate 73 /min Jaylon Ulloa Work Phone: [facility] Work Phone: 06-14-2022 09:03-0500 SaO2% (BldA) [Mass fraction] 97 % Jaylon Ulloa Work Phone: -[facility] Work Phone: 06-14-2022 09:03-0500 Systolic blood pressure 120 mm[Hg] Jaylon Ulloa Work Phone: -[facility] Work Phone: 01-18-2022 10:54-0400 Body height 172.72 cm Jaylon Ulloa Work Phone: [facility] Work Phone: 01-18-2022 10:54-0400 Body mass index (BMI) [Ratio] 30.87 kg/m2 Jaylon Ulloa Work Phone: -[facility] Work Phone: 01-18-2022 10:54-0400 Body surface area Derived from formula 2.06 m2 Jaylon Ulloa Work Phone: [facility] Work Phone: 01-18-2022 10:54-0400 Body temperature 97.1 [degF] Jaylon Tomi Mindy Work Phone: [facility] Work Phone: 01-18-2022 10:54-0400 Body weight 92.08 kg Jaylon Ulloa Work Phone: [employer] Work Phone: 01-18-2022 10:54-0400 Diastolic blood pressure 78 mm[Hg] Jaylon Ulloa Work Phone: [employer] Work Phone: 01-18-2022 10:54-0400 Heart rate 78 /min Jaylon Ulloa Work Phone: [employer] Work Phone: 01-18-2022 10:54-0400 SaO2% (BldA) [Mass fraction] 98 % Jaylon Ulloa Work Phone: [employer] Work Phone: 01-18-2022 10:54-0400 Systolic blood pressure 120 mm[Hg] Jaylon Ulloa Work Phone: [facility] Work Phone: 12-07-2021 09:37-0400 Body height 175.26 cm [facility] 12-07-2021 09:37-0400 Body mass index (BMI) [Ratio] 30.9 kg/m2 [facility] 12-07-2021 09:37-0400 Body temperature 98.2 [degF] [facility] 12-07-2021 09:37-0400 Body weight 95 kg [facility] 12-07-2021 09:37-0400 Diastolic blood pressure 90 mm[Hg] [facility] 12-07-2021 09:37-0400 Heart rate 57 /min [facility] 12-07-2021 09:37-0400 Respiratory rate 18 /min [facility] 12-07-2021 09:37-0400 SaO2% (BldA) [Mass fraction] 98 % [facility] 12-07-2021 09:37-0400 Systolic blood pressure 193 mm[Hg] [facility] 03-07-2021 08:35-0400 Body height 172.72 cm Jaylon Ulloa Work Phone: [facility] 102 DO Work Phone: 03-07-2021 08:35-0400 Body mass index (BMI) [Ratio] 31.47 kg/m2 Jaylon Ulloa Work Phone: [facility] 102 DO Work Phone: 03-07-2021 08:35-0400 Body surface area Derived from formula 2.07 m2 Jaylon Ulloa Work Phone: [place] [address] DO Work Phone: 03-07-2021 08:35-0400 Body temperature 96.2 [degF] Jaylon Ulloa Work Phone: [facility] 102 DO Work Phone: 03-07-2021 08:35-0400 Body weight 93.9 kg Jaylon Ulloa Work Phone: [facility] 102 DO Work Phone: 03-07-2021 08:35-0400 Diastolic blood pressure 60 mm[Hg] Jaylon Ulloa Work Phone: [facility] 102 DO Work Phone: 03-07-2021 08:35-0400 Heart rate 63 /min Jaylon Ulloa Work Phone: [facility] 102 DO Work Phone: 03-07-2021 08:35-0400 Respiratory rate 16 /min Jaylon Ulloa Work Phone: [place] [address] DO Work Phone: 03-07-2021 08:35-0400 SaO2% (BldA) [Mass fraction] 98 % Jaylon Ulloa Work Phone: [facility] 102 DO Work Phone: 03-07-2021 08:35-0400 Systolic blood pressure 140 mm[Hg] Jaylon Ulloa Work Phone: [facility] 102 DO Work Phone: 03-01-2021 09:57-0400 Body height 172.72 cm Jaylon Tomi Mindy Work Phone: [facility] Work Phone: 03-01-2021 09:57-0400 Body mass index (BMI) [Ratio] 30.87 kg/m2 Jaylon Tomi Jimenezshana Work Phone: [facility] Work Phone: 03-01-2021 09:57-0400 Body surface area Derived from formula 2.06 m2 Jaylon Tomi Mindy Work Phone: [facility] Work Phone: 03-01-2021 09:57-0400 Body temperature 97.1 [degF] Jaylon Ulloa Work Phone: [facility] Work Phone: 03-01-2021 09:57-0400 Body weight 92.08 kg Jaylon Tomi Mindy Work Phone: [facility] Work Phone: 03-01-2021 09:57-0400 Diastolic blood pressure 80 mm[Hg] Jaylon Jimenezkl Work Phone: [facility] Work Phone: 03-01-2021 09:57-0400 Heart rate 73 /min Jaylon Jimenezkl Work Phone: [facility] [facility] Work Phone: 03-01-2021 09:57-0400 SaO2% (BldA) [Mass fraction] 99 % Jaylon Ulloa Work Phone: [facility] Work Phone: 03-01-2021 09:57-0400 Systolic blood pressure 150 mm[Hg] Jaylon Ulloa Work Phone: [facility] Work Phone: 07-15-2019 11:00-0500 BMI (Body Mass Index) 32.16 kg/m2 Jaylon Ulloa [facility] Work Phone: 07-15-2019 11:00-0500 Body Temperature 96.7 [degF] Jaylon Ulloa [facility] Work Phone: Comment on above: Method: Temporal 07-15-2019 11:00-0500 Body weight 95.94 kg Jaylon Ulloa [facility] [...] 11:00-0500 Pulse (Heart Rate) 87 /min Jaylon Ulloa [facility] Work Phone: 07-15-2019 11:00-0500 Pulse Oximetry 98 % Jaylon Ulloa [facility] Work Phone: Comment on above: Source: RA Encounters Encounter Date Encounter Type Care Provider Facility Start: 02-04-2024 ambulatory Devendra Picketti ty:[facility] Start: 01-26-2024 ambulatory Devendra Picketti ty:[id number] Start: 12-30-2023 End: 12-30-2023 ambulatory Devendra MINER Facility[place] [place] Start: 12-30-2023 End: 12-30-2023 Patient encounter procedure Devendra MINER [facility] Start: 12-25-2023 End: 12-25-2023 Patient encounter procedure DO Светлана Mast Work Phone: [facility] [place] Work Phone: Start: 12-25-2023 End: 12-25-2023 ambulatory DO Светлана Mast Work Phone: [facility] Work Phone: Start: 12-22-2023 End: 12-22-2023 ambulatory DO Светлана Mast Work Phone: [facility] Work Phone: Start: 12-22-2023 End: 12-22-2023 Patient encounter procedure DO Светлана Mast Work Phone: [facility] [place] Work Phone: Start: 11-05-2023 End: 11-05-2023 ambulatory Devendra MINER Facility:[facility] [place] Start: 11-05-2023 End: 11-05-2023 Lab Drop off Devendra MINER [facility] Start: 11-05-2023 End: 11-05-2023 ambulatory Devendra MINER Facility:[facility] Start: 11-05-2023 End: 11-05-2023 Patient encounter procedure Devendra R MINER [facility] Start: 10-20-2023 ambulatory Devendra MINER Facili ty:[facility] [place] Start: 10-17-2023 End: 10-17-2023 ambulatory Devendra MINER Facility:[facility] [place] Start: 10-17-2023 End: 10-17-2023 Patient encounter procedure Devendra R SCOTTY [facility] Start: 10-16-2023 End: 10-16-2023 Admission to same day surgery center DO Светлана Mast Work Phone: [facility] [place] Start: 10-16-2023 End: 10-16-2023 ambulatory DO Светлана Mast Work Phone: [facility] Work Phone: Start: 10-16-2023 End: 10-16-2023 ambulatory Devendra R MINER Facility:[id number] Start: 10-16-2023 End: 10-16-2023 Off-Site Devendra Nick SCOTTY [facility] Start: 10-01-2023 ambulatory Devendra MINER Facili ty:[facility] [place] Start: 09-18-2023 End: 09-18-2023 ambulatory [facility] Work Phone: Start: 09-18-2023 End: 09-18-2023 Patient encounter procedure [facility] [place] Work Phone: Start: 09-15-2023 ambulatory Devendra MINER Facili ty:[facility] Start: 09-11-2023 ambulatory Devendranilson MINER Facili ty:[id number] Start: 07-14-2023 End: 07-14-2023 ambulatory Светлана Mast Other [employer] Other Start: 07-14-2023 Office outpatient vi sit 25 minutes Светлана Mast [facility] Start: 07-14-2023 End: 07-14-2023 Patient encounter procedure [facility] Work Phone: Start: 07-01-2023 End: 07-01-2023 ambulatory Devendra Nick SCOTTY Facility:[facility] Start: 07-01-2023 End: 07-01-2023 Patient encounter procedure Devendra R SCOTTY [facility] [address] Start: 06-04-2023 End: 06-04-2023 ambulatory СВЕТЛАНА E MAST Facility:[facility] Start: 06-04-2023 End: 06-04-2023 Patient encounter procedure Devendra R SCOTTY [facility] [address] Start: 06-02-2023 End: 06-02-2023 ambulatory Светлана Mast Other [employer] Other Start: 06-02-2023 Office outpatient vi sit 25 minutes Светлана Mast [facility] Start: 03-26-2023 End: 03-26-2023 ambulatory Светлана Mast Other [employer] Other Start: 03-26-2023 Telephone encounter Светлана Mast [facility] Start: 03-24-2023 End: 03-24-2023 ambulatory Светлана Mast Other [employer] Other Start: 03-24-2023 Telephone encounter Светлана Mast [facility] [place] Start: 03-04-2023 ambulatory Devendra MINER Facility : [facility] Start: 02-27-2023 End: 02-27-2023 ambulatory Светлана Mast Other [employer] Other Start: 02-27-2023 Office outpatient vi sit 25 minutes Светлана Mast [facility] [place] Start: 02-17-2023 End: 02-17-2023 Patient encounter procedure DO Светлана Mast Work Phone: [facility] [address] Work Phone: Start: 02-17-2023 End: 02-17-2023 ambulatory DO Светлана Mast Work Phone: [facility] Work Phone: Start: 02-03-2023 End: 02-03-2023 Patient encounter procedure DO Светлана Mast Work Phone: [facility] Start: 02-03-2023 End: 02-03-2023 ambulatory DO Светлана Mast Work Phone: [facility] Work Phone: Start: 01-27-2023 End: 01-27-2023 ambulatory Светлана Mast Other [employer] Other Start: 01-27-2023 Office outpatient ne w 45 minutes Светлана Mast [facility] [place] Start: 10-08-2022 End: 10-08-2022 ambulatory CESARIO YOON MD [facility] Start: 09-10-2022 ambulatory VANGIE DORADO MD Facility: [facility] Start: 08-23-2022 AUDIT Jaylon Ulloa Work Phone: [facility] Work Phone: Start: 07-06-2022 AUDIT Jaylon Ulloa Work Phone: [facility] Work Phone: Start: 06-14-2022 Office outpatient vi sit 15 minutes Jaylon Ulloa Work Phone: [facility] Work Phone: Start: 06-14-2022 ambulatory JAYLON ULLOA Facil [id number]:[id number] Start: 03-12-2022 AUDIT Jaylon Krishna Barbarashana Work Phone: [facility] Work Phone: Start: 02-09-2022 AUDIT Jaylon Ulloa Work Phone: [facility] Work Phone: Start: 02-08-2022 End: 02-09-2022 ambulatory GRETEL MAJANO MD [facility] Start: 01-19-2022 Chart Update Jaylon Ulloa Work Phone: [facility] Work Phone: Start: 01-18-2022 Office outpatient vi sit 15 minutes Jaylon Ulloa Work Phone: [facility] Work Phone: Start: 01-18-2022 ambulatory JAYLON ULLOA Facil [id number]:[id number] Start: 12-12-2021 Telephone encounter Jaylon Ulloa Work Phone: [facility] Work Phone: Start: 12-07-2021 End: 12-07-2021 Emergency department patient visit [facility] Start: 11-14-2021 AUDIT Jaylon Krishna Barbarashana Work Phone: [facility] Work Phone: Start: 11-06-2021 AUDIT Jaylon Krishna Nekl Work Phone: [facility] Work Phone: Start: 11-03-2021 AUDIT Jaylon E Nekl Work Phone: [facility] Work Phone: Start: 10-22-2021 ambulatory JAYLON ULLOA Facil [id number] Start: 07-20-2021 ambulatory JAYLON ULLOA Facil [id number] Start: 06-25-2021 AUDIT Jaylon E Nekl Work Phone: [facility] Work Phone: Start: 06-20-2021 Telephone encounter Jaylon E Nekl Work Phone: [facility] Work Phone: Start: 06-13-2021 AUDIT Jaylon E Nekl Work Phone: [facility] Work Phone: Start: 03-07-2021 Patient encounter procedure Jaylon E Nekl Work Phone: -[facility] DO Work Phone: Start: 03-01-2021 Office outpatient vi sit 15 minutes Jaylon E Nekl Work Phone: [facility] Work Phone: Start: 03-01-2021 Patient encounter procedure Jaylon E Nekl Work Phone: [facility] Work Phone: Start: 01-22-2021 AUDIT Jaylon E Nekl Work Phone: [facility] Work Phone: Start: 12-09-2019 Patient encounter procedure [facility] Work Phone: Start: 07-15-2019 Patient encounter procedure [facility]ekl [facility] Work Phone: Start: 02-16-2019 Patient encounter procedure Jaylon Ulloa [facility] Work Phone: Start: 10-20-2018 Patient encounter procedure Jaylon Ulloa [facility] Work Phone: Start: 07-20-2018 Patient encounter procedure Jaylon Ulloa [facility] Work Phone: Start: 03-23-2018 Patient encounter procedure Jaylon Ulloa [facility] Work Phone: Start: 11-20-2017 Patient encounter procedure Jaylon Ulloa [facility] Work Phone: Start: 07-25-2017 Patient encounter procedure Jaylon Ulloa [facility] Work Phone: Patient encounter procedure Jaylon Ulloa Work Phone: -[place] [address] DO Work Phone: Procedures Date Procedure Procedure [...] knee Devendra RENAY SESAY Transurethral cystoscopy Becky nilson MINER Plan of Treatment Date Care Activity Detail Author Start: 12-25-2023 MR prostate wo/w con MR prostate wo/ w con [facility] Start: 10-16-2023 [facility] Start: 12-16-2022 FUV, Provider: Jaylon Ulloa, Status: Pen, Time: 8:45 AM FUV, Provider: Jaylon Ulloa, Status: Pen, Time: 8:45 AM [facility] Work Phone: Start: 06-14-2022 FUV, Provider: Jaylon Ulloa, Status: Pen, Time: 9:00 AM FUV, Provider: Jaylon Ulloa, Status: Pen, Time: 9:00 AM [facility] Work Phone: Start: 01-18-2022 FUV, Provider: Jaylon Ulloa, Status: Pen, Time: 10:45 AM FUV, Provider: Jaylon Ulloa, Status: Pen, Time: 10:45 AM [facility] Work Phone: Start: 07-02-2021 FUV, Provider: Jaylon Ulloa, Status: Pen, Time: 8:30 AM FUV, Provider: Jaylon Ulloa, Status: Pen, Time: 8:30 AM [facility] Work Phone: Start: 03-07-2021 MCRWELCOME, Provider : Alie Gaytan, Status: Pen, Time: 8:00 AM MCRWELCOME, Provider: Alie Gaytan, Status: Pen, Time: 8:00 AM [facility] Work Phone: Start: 03-01-2021 FUV, Provider: Jaylon Ulloa, Status: Pen, Time: 9:45 AM FUV, Provider: Jaylon Ulloa, Status: Pen, Time: 9:45 AM [facility] Work Phone: Patient Education Paresthesia (DC) [facility] Work Phone: Patient referral [facility] Work Phone: Immunizations Immunization Date Immunization Notes Care Provider Yohan saenz 04-11-2023 Flu Shot - Documenta tion Purposes Only Светлана Mast Other [facility] 04-11-2023 influenza virus vacc ine, unspecified formulation Devendra MINER [facility] 03-21-2023 Prevnar 20 Светлана Mast Other [facility] 12-17-2022 tetanus toxoid, redu brittany diphtheria toxoid, and acellular pertussis vaccine, adsorbed Светлана Mast Other [facility] 06-02-2022 Moderna COVID-19 Biv al Booster 50 MCG/0.5ML Intramuscular Suspension Jaylon E Nekl Work Phone: [facility] 04-19-2022 zoster vaccine recombinant Jaylon E Nekl Work Phone: [facility] 04-08-2022 Fluzone High-Dose Quadrivalent 0.7 ML Intramuscular Suspension Prefilled Syringe Jaylon E Nekl Work Phone: [facility] Work Phone: 04-08-2022 influenza virus vacc ine, unspecified formulation Devendra MINER [facility] 01-11-2022 zoster vaccine recombinant Jaylon E Nekl Work Phone: [facility] 05-21-2021 Moderna COVID-19 Vac cine 100 MCG/0.5ML Intramuscular Suspension Jaylon E Nekl Work Phone: [facility] 03-01-2021 influenza virus vacc ine, unspecified formulation Devendra MINER [facility] 03-01-2021 influenza, high dose seasonal, preservative-free; Translations: [Fluzone High-Dose 0.5 ML Intramuscular Suspension Prefilled Syringe] Jaylon E Nekl Work Phone: [facility] Work Phone: Comment on above: Series: 08-01-2020 Moderna COVID-19 Vac cine 100 MCG/0.5ML Intramuscular Suspension Jaylon E Nekl Work Phone: [facility] 07-04-2020 Moderna COVID-19 Vac cine 100 MCG/0.5ML Intramuscular Suspension Jaylon E Nekl Work Phone: [facility] 03-09-2020 influenza virus vacc ine, unspecified formulation [employer] [facility] 03-09-2020 influenza, injectabl e, quadrivalent, preservative free Jaylon E Nekl Work Phone: [place] [address] DO Work Phone: 04-22-2019 influenza virus vacc ine, unspecified formulation Devendra Yogiyo [facility] 04-22-2019 Influenza, injectabl e, [employer]in [place] Canine Kidney, quadrivalent with preservative Jaylon E Nekl Work Phone: [place] [address] DO Work Phone: 04-10-2018 influenza virus vacc ine, unspecified formulation [employer] [facility] 04-10-2018 influenza, injectabl e, quadrivalent, preservative free Jaylon E Nekl Work Phone: [facility] 102 DO Work Phone: Payers Date Payer Category Payer Self-pay [id number] 2020 Medicare [id number] [address] [facility] [id number] 1959 Unknown [id number] 1955 Unknown [id number] 2.16. [id number] 1955 Unknown [id number] 2.16. 840.1.806473.3.579.2.356 1955 Unknown [id number] 2.16. 840.1.615239.3.579.2.356 1955 Unknown [id number] 2.16. 840.1.954570.3.579.2.356 1955 Unknown [id number] 2.16.8 40.1.127214.3.579.2.159 1955 Unknown [id number] 2.16.8 40.1.022337.3.579.2.598 1955 Unknown [id number] 2.16.8 40.1.385710.3.579.2.598 1955 Unknown [id number] 2.16.8 40.1.290810.3.579.2.727 1955 Unknown [id number] 2.16.8 40.1.464748.3.579.2.727 1955 Unknown [id number] 2.16.8 40.1.392579.3.579.2.727 1955 Unknown [id number] 2.16.8 40.1.968238.3.579.2.727 1955 Unknown [id number] 2.16.8 40.1.623905.3.579.2.727 1955 Unknown [id number] 2.16.8 40.1.139337.3.579.2.727 1955 Unknown [id number] 2.16.8 40.1.128438.3.579.2.727 1955 Unknown [id number] 2.16.8 40.1.126138.3.579.2.727 1955 Unknown [id number] 2.16.8 40.1.739556.3.579.2.727 1955 Unknown [id number] 2.16.8 40.1.219972.3.579.2.727 1955 Unknown [id number] 2.16.8 40.1.258779.3.579.2.727 1955 Unknown [id number] 2.16.8 40.1.676539.3.579.2.727 1955 Unknown [id number] 2.16.8 40.1.842796.3.579.2.727 Unknown Unknown [id number] Unknown [id number] 2.16.8 40.1.716346.3.579.2.531 Unknown [id number] 2.16.8 40.1.141113.3.579.2.531 Unknown [id number] 2.16.8 40.1.793618.3.579.2.531 Unknown [id number] 2.16.8 40.1.697781.3.579.2.531 Social History Date Type Detail Facility Currently working Currently working [facility] [employer] [facility] Work Phone: Start: 12-07-2021 Tobacco smoking status NHIS Smoker (finding) [facility] Start: 1955 Sex Assigned At Male F [facility] Sex Assigned At [facility] Start: 06-04-2023 End: 11-05-2023 Tobacco smoking status Never smoked tobacco [facility]finding[facility] [place] Tobacco smoking status Never [facility] NEGATED: Highlighted row - - [facility] Work Phone: Medical Equipment Procedure Code Equipment [...] Facility 11-05-2023 Functional Status N/A [facility] 10-16-2023 Functional status Patient at Baseline [facility] Work Phone: 07-01-2023 Functional Status N/A [facility] 06-04-2023 Functional Status N/A [facility] NEGATED: Highlighted row Functional performance Functional status health issues are not documented Disease [facility] Work Phone: Mental Status Date Assessment Result Facility 10-16-2023 Cognitive function Cognitive Sta tus Patient at Baseline [facility] Work Phone: NEGATED: Highlighted row Cognitive function [Interpretation] Cognitive status health issues are not documented Disease [facility] Work Phone: Clinical Notes 01-27-2023 to 11-05-2023 [...] Follow these instructions at home: Medicines Take iysd-qht-oofonwh and prescription medicines only as told by your health care provider. Ask your health care provider if the medicine prescribed to you: ?Requires you to avoid driving or using heavy machinery. ?Can cause constipation. You may need to take these actions to prevent or treat constipation: ?Take sljw-amk-whivnle or prescription medicines. ?Eat foods that are [...] provider. Document Revised: 01/06/2020 Document Reviewed: 01/06/2020 [employer] Patient Education 2022 [employer]. Follow Up Care 09/10/2023 14:40:10 With:SCOTTY VO, Devendra Romero, URL Address: [facility] [address], [place] [address]- When: Unknown [facility] 11-05-2023 Evaluation + Plan note Diagnostic Tests PendingPSA Total 11/05/23PSA Total 11/05/23 [facility] 07-14-2023 Evaluation note Encounter Date Diagnosis Assessment [...] (ICD-10 - I10) BP controlled, continue Rx [employer] Other 01-02-2024 Hospital Discharge instructions Patient Education [...] Follow these instructions at home: Medicines Take ctfv-yki-najgvwv and prescription medicines only as told by your health care provider. Ask your health care provider if the medicine prescribed to you: ?Requires you to avoid driving or using heavy machinery. ?Can cause constipation. You may need to take these actions to prevent or treat constipation: ?Take tfol-xxh-mjnokmk or prescription medicines. ?Eat foods that are [...] more information [employer] (F): www.urologyhealth.org Contact a health care provider if [...] provider. Document Revised: 01/06/2020 Document Reviewed: 01/06/2020 [employer] Patient Education 2022 [employer]. 07/01/2023 14:44:58 Transurethral Resection of the Prostate [...] including vitamins, herbs, eye drops, creams, and mmzo-opg-pufvlfs medicines. Any problems you or family members [...] provider tells you to take them. Taking kezo-erb-rktndcj medicines, vitamins, herbs, and supplements. Surgery safety [...] provider. Document Revised: 03/12/2022 Document Reviewed: 03/12/2022 [employer] Patient Education 2022 [employer]. 07/01/2023 14:20:36 Benign Prostatic Hyperplasia Benign Prostatic [...] urethra. Follow these instructions at home: Take tfbs-suz-tkuttzp and prescription medicines only as told by [...] provider. Document Revised: 01/02/2022 Document Reviewed: 01/02/2022 [employer] Patient Education 2022 [employer]. Follow Up Care 06/04/2023 14:21:38 With:SCOTTY VO, Devendra Romero, URL Address: [facility] [address] , [place] [address]- When: Unknown Comments:Schedule Cysto/Litholapaxy/TURP [facility] 12-06-2023 Hospital Discharge instructions Patient Education 06/04/2023 [...] Follow these instructions at home: Medicines Take dafp-fgd-jgtgybi and prescription medicines only as told by your health care provider. Ask your health care provider if the medicine prescribed to you: ?Requires you to avoid driving or using heavy machinery. ?Can cause constipation. You may need to take these actions to prevent or treat constipation: ?Take lieb-uyl-jgccmqi or prescription medicines. ?Eat foods that are [...] provider. Document Revised: 01/06/2020 Document Reviewed: 01/06/2020 [employer] Patient Education 2022 [employer]. 06/04/2023 14:11:49 Cystoscopy Cystoscopy Cystoscopy is a [...] including vitamins, herbs, eye drops, creams, and rnza-kfn-etpnmsu medicines. Any problems you or family members [...] provider tells you to take them. Taking eimq-zrd-ezsnqcn medicines, vitamins, herbs, and supplements. Tests You [...] Follow these instructions at home: Medicines Take pqbq-lll-osxdqcq and prescription medicines only as told by [...] provider. Document Revised: 02/27/2022 Document Reviewed: 01/26/2021 [employer] Patient Education 2022 [employer]. Follow Up Care 03/04/2023 10:15:34 With:SCOTTY VO, Devendra Romero, URL Address: [facility] [address] , [place] [address]- When: Unknown [facility] 12-04-2023 Evaluation note* Encounter Date Diagnosis Assessment [...] I10) Controlled, continue lisinopril 10 mg daily [employer] Other 09-25-2023 Evaluation note* Encounter Date Diagnosis Assessment Notes Treatment Notes Treatment Clinical Notes Feb, Type 2 diabetes mellitus without complication, without long-term current use of insulin (ICD-10 - E11.9) Feb, Essential (primary) hypertension (ICD-10 - I10) [employer] Other 08-31-2023 Evaluation note* Encounter Date Diagnosis [...] Refer to urology, he is currently asymptomatic [employer] Other 07-31-2023 Evaluation note* Encounter Date Diagnosis [...] urologist for further evaluation to include cystoscopy [employer] Other Evaluation + Plan note Future Appointments Appointment Date:07/01/2023 01:45:00 PM Scheduled Provider:Devendra MINER MD Location:[facility] Appointment Type:URO Procedure 15 min [facility] evaluation + Plan note Future Appointments Appointment Date:10/20/2023 09:00:00 AM Scheduled Provider: Location:[facility] Appointment Type:URO Nurse Visit Appointment Date:11/05/2023 03:00:00 PM Scheduled Provider:Devendra MINER MD Location:[facility] Appointment Type:URO Office Visit [facility] evaluation + Plan note Future Appointments Appointment Date:11/05/2023 03:00:00 PM Scheduled Provider:Devendra MINER MD Location:[facility] Appointment Type:URO Office Visit [facility] evaluation noteNo assessment information available [facility] Work Phone: Evaluation noteNo InformationNortFair[facility] [employer] Other Evaluation note* Diagnosis Onset Date Resolution Status Bladder calculus acute Essential (primary) hypertension acute [id number] acute [facility] Work Phone: Evaluation note* Diagnosis Onset Date Resolution Status [id number] acute [facility] Work Phone: Evaluation note* Diagnosis Onset Date Resolution Status Bladder calculus acute Essential (primary) hypertension acute Right arm pain acute Type 2 diabetes mellitus acu te [facility] Work Phone: History general Narrative - Reported* Type Description Date Medical History Hypertension Medical History type II diabetes Surgical History R knee surgery [facility] Other History of Present illness Narrative* spends time by [place] * wt. similar * hgm 90--150 range..tests 1--2 a day * no sob/ no chest pains * agent 10--14 basa u basa/ plus orals * no hypos [employer] Work Phone: History of Present illness Narrative* spends time by [place] home * wt. similar * hgm 90--150 range. per pt. .tests 1--2 a day * no sob/ no chest pains * agent 10--14 basag u / plus orals * no hypos * had eye care 2020 * overall feels fine * he again declines going on lipid lowering [facility] Work Phone: History of Present illness Narrative* [...] aids but has not got them yet. [facility] 102 DO Work Phone: History of [...] aids but has not got them yet. [facility] 102 DO Work Phone: History of [...] aids but has not got them yet. [employer] Work Phone: History of Present illness Narrative* cards appt. 2021 dr majano ([facility]) * r. arm issue resolved * hgm fbs 140--150s..seems a little higher to him * takes meds fine * no sob no cjhest pains * no hypos [employer] Work Phone: History of Present illness Narrative* [...] sjhot * eye dr up to date -[facility] Work Phone: Hospital course Narrative No data available for this section [facility] Hospital Discharge instructions No data available for this section [facility] Hospital Discharge instructions Additional Instructions DISCHARGE INSTRUCTIONS [...] will call for next step [ ] [facility] Work Phone: Progress note No data available for this section [facility] Shamar Chief Complaint here for dm/ bp followuphere [...] for Visit Bladder calculus Essential (primary) hypertension [id number] Chief Complaint Bladder Stone, BPH w / Obstruction 3 month follow up Reason for Visit [id number] Chief Complaint Bladder Stone, BPH w / [...] 1 Bladder calculi (N21 .0) Referral Organization [facility] Family Lazara Ron Referring Provider First Name Светлана Referring Provider Last Name Mast Referring Provider Specialty Family Prac jyothi Referred Organization [facility] Referred Address [address],[place],[address] Referred Provider Specialty Urology Referral Priority Routine [...] section and content) DATE CREATED AUTHOR 06/20/2022 [facility] DATE CREATED AUTHOR AUTHOR'S ORGANIZ ATION 06/21/2022 [employer] DATE CREATED AUTHOR AUTHOR'S ORGANIZ ATION 09/11/2022 [facility] DATE CREATED AUTHOR AUTHOR'S ORGANIZ ATION 10/11/2022 [facility] DATE CREATED AUTHOR AUTHOR'S ORGANIZ ATION 01/04/2024 [facility] DATE CREATED AUTHOR AUTHOR'S ORGANIZ ATION 01/17/2024 [facility] REASON FOR VISIT (unrecogniz ed section and [...] BE BASED ON THE PRIMARY CLINICAL RECORDS. [facility] [facility]. provides no warranty or guarantee of the accuracy or completeness of information in this document.
[2024-01-26 09:00] VITALS: BP 149/81; PULSE 69; TEMP 35.8; O2SAT 97; BMI 28.8
[2024-01-26 09:11] LABS: Glucometer 148 mg/dL (74-106)
[2024-01-26] MEDS: LACTATED RINGER'S SOLUTION 1,000 ML 50 ML IV (09:22)
[2024-01-26] MEDS: CEFAZOLIN SODIUM/DEXTROSE,ISO 1 GM/50 ML IV.SOLN IV (09:26)
[2024-01-26] MEDS: GENTAMICIN SULFATE 120 MG in 0.9 % SODIUM CHLORIDE 100 ML 206 MG IV (10:36)
[2024-01-26] MEDS: LIDOCAINE 2% JELLY 20 ML UR (11:00)
[2024-01-26 11:25] VITALS: BP 105/64; PULSE 54; O2SAT 97
--- NOTE | 2024-01-26 11:32 | P.URON_ITS ---
Urology Surgery Operative Note Operative Note Procedure Date: 01/26/24 Time Out Performed: yes Pre-op Diagnosis: Elevated PSA and prostate lesion by MRI Post-op Diagnosis: same as pre-op Procedures performed: 1. Transrectal ultrasound of the prostate. 2. MRI fusion prostate biopsies. Anesthesia: MAC and local Primary Surgeon: Devendra Miner Complications: None Estimated blood loss (mL): 10 Findings: 1 large anterior lesion noted. Specimens: 1. 10 biopsies from the area of interest. 2. Systematic biopsies from the left side going from the base towards the apex and from the right side going from the base towards the apex. These were all sent separately. Indications for Procedures: This gentleman has an elevated PSA of 4.5 and a large anterior lesion by prostate MRI rated a PI-RADS 5. He now presents for MRI fusion biopsies of the prostate. He has signed an informed consent after risks were explained. Some of these risks include bleeding, infection, urosepsis and anesthesia to name a few. Detailed description of Procedure: The patient was brought to the operating room on the [facility] bed and kept in the supine position. Timeout was done by all parties in the room. We all agreed upon the patient's identification and the planned procedures for this patient. MAC anesthesia was then administered. He was then rotated in the left lateral decubitus position. 2% Xylocaine jelly was passed per rectum. The [employer] ultrasound probe was passed per rectum. Segmentation was then done so as to superimpose the MRI images onto the live ultrasound. We then identified the apical area of interest. We successfully took 10 excellent biopsies from this lesion. These were sent separately labeled area of interest. We then did our systematic biopsies going from the base towards the apex. We started on the left side and did 6 biopsies. These were sent separately. We then did the right side and also took 6 biopsies. At the end of the procedure we had 22 satisfactory cores. The probe was removed. He was rotated in the supine position. He was then transferred to a [facility] bed and wheeled to PACU in stable condition.
[2024-01-26 11:40] VITALS: BP 133/86; PULSE 64; O2SAT 98
[2024-01-26 11:55] VITALS: BP 130/84; PULSE 60; O2SAT 99
--- NOTE | 2024-01-26 12:08 | PC.NURSE ---
upto BR with assist x1. Patient steady on feet.
[2024-01-26 12:30] VITALS: BP 128/78; PULSE 62; O2SAT 99
== END 2024-01-26 12:30 | disposition home or self-care (01) ==
PROVIDERS: PCP Family Medicine; Visit Provider Urology
PROC: (CPT 55700; principal; 2024-01-26 09:45)
DX: C61 Malignant neoplasm of prostate (principal); R97.20 Elevated prostate specific antigen [PSA]; N42.89 Other specified disorders of prostate; G47.33 Obstructive sleep apnea (adult) (pediatric); I10 Essential (primary) hypertension; E11.9 Type 2 diabetes mellitus without complications; Z79.4 Long term (current) use of insulin; Z79.84 Long term (current) use of oral hypoglycemic drugs; Z79.01 Long term (current) use of anticoagulants
CPT/HCPCS: 55700; 36415; 82948; 88305; 88344; J0690; J1580; J2250; J2405; J2704; J3010

== ENCOUNTER 2025-03-08 09:34 | Outpatient (OUT) | payer MEDICARE, BC, SELFPAY ==
--- OUTSIDE RECORDS SUMMARY | 2024-02-02 09:30 | XMS_ITS ---
Author Organization Corporate Office Address [address] [place] [address] [address] [place] [address] Care Team Providers Care Auto Electrician Name Role Phone Jaylon Guillen Primary Care Provider Court Edwards MD, Ashok Unavailable [phone] REASON FOR VISIT 1 year follow up Encounters Encounter Location Date Provider Diagnosis 06 [facility] Specialty [address] [place] [address] 02/02/2024 Ashok Edwards Plan Of Treatment Next Appt Details Provider Name:Ashok Edwards , 03/09/2025 01:00:00 PM, [address], [address], [place], [address], Progress Notes * Ashok TOSCANODOB:[birth year] (69 yo M)Acc No.[id number]:02/02/2024 Progress Notes Patient: Ashok VALLEJO Provider: Fela Edwards MD Case Label: Date Of Injury: :1955 A ge:68 Y S ex:Male Date:02/02/2024 Address:[address] [place], [place] [id number] Pcp:Jaylon Guillen Subjective: * Chief Complaints: * 1 . 1 year follow up. * Medical History: Objective: * Vitals: Assessment: Plan: * Treatment: * Care Plan Details* * Electronic signature of Carl Edwards MD, MD on 03/08/2025 at 09:36 AM EDT Sign off status: Pending * Provider: Fela Edwards MD Date: 0 02/02/2024 Generated for Bev garcia/Loly/eTransmitting on: 0 03/08/2025 09:36 AM EDT
--- OUTSIDE RECORDS SUMMARY | 2024-02-16 07:00 | XMS_ITS ---
Author Organization Corporate Office Address [address] [place] [address] [address] [place] [address] Care Team Providers Care Sleeve Separator Name Role Phone Jaylon Guillen Primary Care Provider Court Edwards MD, Ashok Unavailable [phone] REASON FOR VISIT 1 year follow up Encounters Encounter Location Date Provider Diagnosis 06 [facility] Specialty [address] [place] [address] 02/16/2024 Ashok Edwards Plan Of Treatment Next Appt Details Provider Name:Ashok Edwards , 03/09/2025 01:00:00 PM, [address], [address], [place], [address], Progress Notes * Ashok TOSCANODOB:[birth year] (69 yo M)Acc No.[id number]:02/16/2024 Progress Notes Patient: Ashok VALLEJO Provider: Fela Edwards MD Case Label: Date Of Injury: :1955 A ge:68 Y S ex:Male Date:02/16/2024 Address:[address] [place], [place] [id number] Pcp:Jaylon Guillen Subjective: * Chief Complaints: * 1 . 1 year follow up. * Medical History: Objective: * Vitals: Assessment: Plan: * Treatment: * Care Plan Details* * Electronic signature of Carl Edwards MD, MD on 03/08/2025 at 09:36 AM EDT Sign off status: Pending * Provider: Fela Edwards MD Date: 0 02/16/2024 Generated for Bev garcia/Loly/eTransmitting on: 0 03/08/2025 09:36 AM EDT
--- OUTSIDE RECORDS SUMMARY | 2025-03-08 09:36 | XMS_ITS | Encounter Summary ---
Author Organization [facility] Address [address] [place] [address] Phone Care Team Providers Care Stemmer Machine Name Role Phone Jaylon Guillen MD Primary Care Provider Unavail able Encounter Details Date Type Department Care Team (Late st Contact Info) Description 07/02/2023 Patient Risk Score ACO Care Management [address] [place] [phone] Social History Tobacco Use Types Packs/Day Years Used Date Smoking Tobacco: Never Assessed Sex and Gender Information Value Date Recorded Sex Assigned at Not on file Legal Sex Male 7:36 PM EST Gender Identity Not on file Sexual Orientation Not on file documented as of this encounter Plan of Treatment Not on file documented as of this encounter Visit Diagnoses Not on filedocumented in this encounter Care Teams Stemmer Machine Relationship Specialty Start Date End Date Jaylon Guillen MD PCP - General 12/21/18 documented as of this encounter
--- OUTSIDE RECORDS SUMMARY | 2025-03-08 09:36 | XMS_ITS | Encounter Summary ---
Author Organization [facility] Address [address] [place] [address] Phone Care Team Providers Care Cash Applications Manager Name Role Phone Jaylon Guillen MD Primary Care Provider Unavail able Jaylon Guillen MD Unavailable Unavailable Encounter Details Date Type Department Care Team (Late st Contact Info) Description 03/02/2023 Patient Risk Score ACO Care Management [address] [facility] [address] [place] [phone] Social History Tobacco Use Types Packs/Day Years [...] on filedocumented in this encounter Care Teams Cash Applications Manager Relationship Specialty Start Date End Date Jaylon Guillen MD PCP - General 12/21/18 Jaylon Guillen MD Office Address Unavailable as of 12/28/2022 PCP - [employer] PCP 02/28/22 06/29/23 documented as of this encounter
--- OUTSIDE RECORDS SUMMARY | 2025-03-08 09:36 | XMS_ITS | Encounter Summary ---
Author Organization [facility] Address [address] [place] [address] Phone Care Team Providers Care Bowl Turner Name Role Phone Jaylon Guillen MD Primary Care Provider Unavail able Jaylon Guillen MD Unavailable Unavailable Encounter Details Date Type Department Care Team (Late st Contact Info) Description 2023 Patient Risk Score ACO Care Management [address] [facility] [address] [place] [phone] Social History Tobacco Use Types Packs/Day Years [...] on filedocumented in this encounter Care Teams Bowl Turner Relationship Specialty Start Date End Date Jaylon Guillen MD PCP - General 12/21/18 Jaylon Guillen MD Office Address Unavailable as of 12/28/2022 PCP - [employer]age PCP 02/28/22 06/29/23 documented as of this encounter
--- OUTSIDE RECORDS SUMMARY | 2025-03-08 09:36 | XMS_ITS | Encounter Summary ---
Author Organization [facility] Address [address] [place] [address] Phone Care Team Providers Care Field Control Inspector Name Role Phone Jaylon Guillen MD Primary Care Provider Unavail able Encounter Details Date Type Department Care Team (Late st Contact Info) Description 08/03/2023 Patient Risk Score ACO Care Management [address] [place] [phone] Social History Tobacco Use Types Packs/Day Years [...] on filedocumented in this encounter Care Teams Field Control Inspector Relationship Specialty Start Date End Date Jaylon Guillen MD PCP - General 12/21/18 documented as of this encounter
--- OUTSIDE RECORDS SUMMARY | 2025-03-08 09:36 | XMS_ITS | Patient Health Record ---
Author Organization Corporate Office Address [address] [place] [address] [address] [place] [address] Care Team Providers Care Engineering Team Supervisor Name Role Phone BarbaraJaylon saldana Primary Care Provider Ashok Yuan MD Unavailable [phone] Allergies Allergen (clinical drug ingredient) Drug/Non Drug Allergy documented on EMR Reaction Allergy Type Onset Date Status pioglitazone Pioglitazone HCl Unknown Drug Allergy Active colesevelam WelChol Unknown Drug Allergy Activ e ezetimibe Zetia Unknown Drug Allergy Active linagliptin Tradjenta Unknown Drug Allergy Activ e Substance with 9-yxnrngk-2-methylgluta ryl-coenzyme A reductase inhibitor mechanism of action (substance) Statins Unknown Drug Allergy Active Substance with sulfonamide structure and antibacterial mechanism of action (substance) Sulfa Antibiotics Unknown Drug Allergy Active Results Component Value Reference Range Notes ELECTROCARDIOGRAM WITH INTER PRETATION AND REPORT EKG Reviewed date:03/09/2024 01:00:09 PM Interpretation: Performing Lab: Notes/Report: Reason For Referral No Information Medications Medication SIG (Take, Route, Frequency, Duration) Notes Start Date End Date Status Rosuvastatin Calcium 5 MG 1 tablet Orally Once a day at bedtime; Duration: 30 days every other day 02/21/2025 Active Repaglinide 2 MG 1 tablet 15 to 30 minutes before meals Orally three times a day Active CO-Q 10 [place]-3 Fish Oil Active Aspirin 81 MG 1 tablet Orally Once a day 01/30/2022 Active metFORMIN HCl ER 500 MG 1 tablet Orally three times a day Active Lisinopril 2.5 MG 1 tablet Orally Once a day; Duration: 30 days 02/21/2025 Active Basaglar KwikPen 100 UNIT/ML 15 units Subcutaneous once a day Active Social History Tobacco Use: Social History Observation Description Date Details (start date - stop date) Never Smoker NA - NA Smoking Question Answer Notes Are you a: Never Smoker Problems Problem Type SNOMED Code ICD Code Onset Dates Problem Status W/U Status Risk Notes Problem Mixed hyperlipidemia (133187414) Mixed hyperlipidemia (E78.2) Active confirmed Problem Essential hypertension (56652312) Essential hypertension (I10) Active confirmed Problem Atherosclerotic heart disease of [place] coronary artery without angina pectoris (433883735655530) Atherosclerosis of [place] coronary artery of [place] heart, unspecified whether angina present (I25.10) Active confirmed Vital Signs Height-cm 175.26 cm 03/09/2024 Blood pressure diastolic 76 mm Hg 03/09/2024 Weight-kg 90.72 kg 03/09/2024 Height 69 in 03/09/2024 Blood pressure systolic 123 mm Hg 03/09/2024 Weight 200 lbs 03/09/2024 BMI 29.53 kg/m2 03/09/2024 Encounters Encounter Location Date Provider Diagnosis 06 [facility] Specialty [address] [address] [place] [address] 03/09/2024 Ashok Edwards Atherosclerosis of n ative coronary artery of [place] heart, unspecified whether angina present I25.10 ; Abnormal EKG R94.31 ; Family history of coronary artery disease Z82.49 ; Mixed hyperlipidemia E78.2 and Essential hypertension I10 06 [facility] Specialty [address] [place] [address] [address] [place] [address] 03/09/2024 Ashok Edwards 06 [facility] Specialty [address] [place] [address] [address] [place] [address] 02/14/2025 Ashok Edwards Mixed hyperlipidemia E78.2 and Atherosclerosis of [place] coronary artery of [place] heart, unspecified whether angina present I25.10 Assessments Encounter Date Diagnosis (ICD Code) Assessment Notes Treatment Notes Treatment Clinical Notes Section Notes 03/09/2024 Atherosclerosis of [place] coronary artery of [place] heart, unspecified whether angina present (ICD-10 - I25.10) The patient denies angina, heart failure, syncope. He has some measure of atherosclerotic coronary disease based on elevated CT coronary calcium score. He needs aggressive risk factor modification.He denies cardiovascular symptoms. I have suggested low-dose aspirin and consider a PCSK9 inhibitor. The patient was educated and when to present urgently 02/14/2025 Mixed hyperlipidemia (ICD-10 - E78.2) 02/14/2025 Atherosclerosis of [place] coronary artery of [place] heart, unspecified whether angina present (ICD-10 - I25.10) 03/09/2024 Abnormal EKG (ICD-10 - R94.31) Elevated CT coronary calcium score, CAD risk factors,Stress testing negative for ischemia. No angina. Aggressive risk factor modification. 03/09/2024 Family history of coronary artery disease (ICD-10 - Z82.49) risk factor modification Discussed 03/09/2024 Mixed hyperlipidemia (ICD-10 - E78.2) there is evidence of atherosclerotic CAD. Lipids are not at goal. He is intolerant to multiple agents including multiple statins. I suggest Repatha as tolerated. Treat to goal. The patient wishes to consider this recommendation 03/09/2024 Essential hypertension (ICD-10 - I10) Controlled with current medications. Goals of therapy discussed. Adverse health effects of uncontrolled hypertension discussed 03/09/2024 Other The patient was instructed to call for test results. This note was dictated using [employer] Edition 2. The document was proofread, however unrecognized voice recognition forming operator errors may be present. PCP: Dr. Jaylon Guillen , evolocumab [Medication Leaflet] material was printed Plan Of Treatment Pending Test Test Name Order Date Treadmill Stress Echocardiogram 01/31/20 Future Test Test Name Order Date BMP (Basic Metabolic Panel) 02/06/2022 ALT (SGPT), AST (SGOT) 04/01/2022 Lipid Panel 04/01/2022 ALT (SGPT), AST (SGOT) 05/09/2024 Lipid Panel 05/09/2024 Next Appt Details Provider Name:Ashok Lambert Grace , 03/09/2025 01:00:00 PM, [address] [place] [address], [address], [place], [address], Insurance Providers Payer Name Payer Address Payer Phone Subscriber Number Group Number Insured Name Patient Relationship to Insured Coverage Start Date Coverage End Date [employer] MED[employer]ARE PPO [address] [place] [address] [id number] Ashok Toscano Self - patient is the insured [employer] [address] [place] [address] [id number] Ashok Toscano Self - patient is the insured Medical (General) History Medical History History ICD Code Type 2 DM HTN Chronic Rhinitis Elevated PSA Coronary artherosclerosis Hypercholesterolemia Hospitalization History Reason Date(Month/Year) Numbness in arm
--- OUTSIDE RECORDS SUMMARY | 2025-03-08 09:36 | XMS_ITS | Clinical Summary ---
Author Organization [facility] Address [address] [place] [address] Phone Care Team Providers Care Fur Trimming Machine Operator Name Role Phone Jaylon Guillen MD Primary Care Provider Unavail able Social History Tobacco Use Types Packs/Day Years Used Date Smoking Tobacco: Never Assessed Sex and Gender Information Value Date Recorded Sex Assigned at Not on file Legal Sex Male 7:36 PM EST Gender Identity Not on file Sexual Orientation Not on file Last Filed Vital Signs Vital Sign Reading Time Taken Comments Blood Pressure 120/62 06/14/2022 9:03 AM EST Pulse 73 06/14/2022 9:03 AM EST Temperature 36.3 C (97.4 F) 06/14/2022 9:03 AM EST Respiratory Rate 16 03/07/2021 8:35 AM EDT Oxygen Saturation 97% 06/14/2022 9:03 AM EST Inhaled Oxygen Concentration - - Weight 94.8 kg (209 lb) 06/14/2022 9:03 AM EST Height 172.7 cm (5' 8 ) 06/14/2022 9:03 AM EST Body Mass Index 31.78 06/14/2022 9:03 AM EST Plan of Treatment Health Maintenance Due Date Last Done Comments CT Colonography 1955 Colonoscopy 1955 FIT 1955 Sigmoidoscopy 1955 Yearly Adult Physical 1955 MMR Vaccines (1 of 1 - Standard series) 1956 Hepatitis C Screening 1973 DTaP/Tdap/Td Vaccines (1 - Tdap) 1977 Pneumococcal Vaccine (1 of 1 - PCV) 2005 Zoster Vaccines (1 of 2) 2005 RSV High Risk: (Elderly (60+) or Population) (1 - Risk 60-74 years 1-dose series) 2015 Colorectal Cancer Screening 02/23/2022 FIT-DNA (Cologuard) 02/23/2022 02/23/2019 PSA Prostate Cancer Screening 06/25/2022 06/25/2021, 02/11/2019, 07/18/2017 COVID-19 Vaccine ( season) 2025 Influenza Vaccine (#1) 2025 03/01/2021 Lipid Panel 06/07/2027 06/07/2022, 05/31, 08/31/2020, Additional history exists HIB Vaccines Aged Out No longer eligi ble based on patient's age to complete this topic HPV Vaccines Aged Out No longer eligi ble based on patient's age to complete this topic Hepatitis A Vaccines Aged Out No long er eligible based on patient's age to complete this topic Hepatitis B Vaccines Aged Out No long er eligible based on patient's age to complete this topic IPV Vaccines Aged Out No longer eligi ble based on patient's age to complete this topic Meningococcal Vaccine Aged Out No baldemar brianda eligible based on patient's age to complete this topic Rotavirus Vaccines Aged Out No longer eligible based on patient's age to complete this topic Procedures Procedure Name Priority Date/Time Associated Diagnosis Comments LIPID PANEL Routine 06/07/2022 9:56 AM EST PROSTATE SPECIFIC ANTIGEN, SCREEN Routine 06/25/2021 9:12 AM EST LAB COLOGUARD COLON CANCER SCREEN 02/23/2019 from Last 3 Months or Most Recently Relevant to Health Maintenance Results * (ABNORMAL) Lipid Panel (06/07/2022 9:56 AM EST) Cholesterol 196 0 - 199 mg/dL [facility] Comment: . AGE DESIRABLE BORDERLINE HIGH HIGH [...] be performed immediately prior to Metamizole dosing. HDL 30.1(A) mg/dL [facility] Comment: . AGE VERY LOW LOW NORMAL HIGH 0-19 Y < 35 < 40 40-45 ---- 20-24 Y ---- < 40 >45 ---- >24 Y ---- < 40 40-60 >60 . Cholesterol/HDL Ratio 6.5(A) [facility] Comment: REF VALUES DESIRABLE < 3.4 HIGH RISK > 5.0 LDL 134(H) 0 - 99 mg/dL [facility] Comment: . NEAR BORD AGE DESIRABLE OPTIMAL HIGH HIGH VERY HIGH 0-19 Y 0 - 109 --- 110-129 >/= 130 ---- 20-24 Y 0 - 119 --- 120-159 >/= 160 ---- >24 Y 0 - 99 100-129 130-159 160-189 >/=190 . VLDL 32 0 - 40 mg/dL [facility] Triglycerides 160(H) 0 - 149 mg/dL [facility] Comment: . AGE DESIRABLE BORDERLINE HIGH HIGH [...] be performed immediately prior to Metamizole dosing. 06/07/2022 9:56 AM EST 06/07/2022 5:14 PM EST us Jaylon Guillen MD LAB BLOOD ORDERABLES Final Res ult [facility] [id number] [facility] [address] [id number] * Prostate Specific Antigen, Screen (06/25/2021 9:12 AM EST) Prostate Specific Antigen,Screen 2.61 0.00 - 4.00 ng/mL [facility] Comment: The FDA requires that the method used for PSA assay be reported to the physician. Values obtained with different assay methods must not be used interchangeably. This test was performed at [facility] using the Siem[employer] Lay[employer]llDishable PSA method, which is a sandwich immunoassay using chemiluminescence for quantitation. The assay is approved for measurement of prostate-specific antigen (PSA) in serum and may be used in conjunction with a digital rectal examination in men 50 years and older as an aid in detection of prostate cancer. 9-Ftmlv-ooatfrnfq inhibitors (e.g. Proscar, Finasteride, Avodart, Dutasteride and Michelle) for the treatment of BPH have been shown to lower PSA levels by an average of 50% after 6 months of treatment. 06/25/2021 9:12 AM EST 06/25/2021 5:19 PM EST us Jaylon Guillen MD LAB BLOOD ORDERABLES Final Res ult Performing Organization Address [facility]/ZIP Co de Phone Number [facility] * LAB COLOGUARD?? COLON CANCER SCREEN (02/23/2019) Narrative 02/23/2019 Ordered by an unspecified provider. us Onbase Conversion LAB MOLECULAR DIAGNOSTICS ORDE RABLES Final Result from Last 3 Months or Most Recently Relevant to Health Maintenance Care Teams Fur Trimming Machine Operator Relationship Specialty Start Date End Date Jaylon Guillen MD PCP - General 12/21/18
--- OUTSIDE RECORDS SUMMARY | 2025-03-08 09:36 | XMS_ITS | Encounter Summary ---
Author Organization [facility] Address [address] [place] [address] Phone Care Team Providers Care Sewing Techniques Demonstrator Name Role Phone Jaylon Guillen MD Primary Care Provider Unavail able Jaylon Guillen MD Unavailable Unavailable Encounter Details Date Type Department Care Team (Late st Contact Info) Description 01/30/2023 Patient Risk Score ACO Care Management [address] [facility] [address] [place] [phone] Social History Tobacco Use Types Packs/Day Years [...] on filedocumented in this encounter Care Teams Sewing Techniques Demonstrator Relationship Specialty Start Date End Date Jaylon Guillen MD PCP - General 12/21/18 Jaylon Guillen MD Office Address Unavailable as of 12/28/2022 PCP - [employer] Medicare [employer]vantage PCP 02/28/22 06/29/23 documented as of this encounter
--- OUTSIDE RECORDS SUMMARY | 2025-03-08 09:36 | XMS_ITS | Encounter Summary ---
Author Organization [facility] Address [address] [place] [address] Phone Care Team Providers Care Alligator Trapper Name Role Phone Jaylon Guillen MD Primary Care Provider Unavail able Jaylon Guillen MD Unavailable Unavailable Encounter Details Date Type Department Care Team (Late st Contact Info) Description 06/01/2023 Patient Risk Score ACO Care Management [address] [facility] [address] [place] [phone] Social History Tobacco Use Types Packs/Day Years [...] on filedocumented in this encounter Care Teams Alligator Trapper Relationship Specialty Start Date End Date Jaylon Guillen MD PCP - General 12/21/18 Jaylon Guillen MD Office Address Unavailable as of 12/28/2022 PCP - [employer] Medicare Advantage PCP 02/28/22 06/29/23 documented as of this encounter
--- OUTSIDE RECORDS SUMMARY | 2025-03-08 09:36 | XMS_ITS | Clinical Summary ---
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 Prandinmet Active LISINOPRIL ORAL Take 10 mg by mouth once daily. Active metFORMIN ER (GLUMETZA) 500 mg 24 hr tablet Take 1,000 mg by mouth twice daily with meals. 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) - Left Eye 03/29/2014 Senile cataract, unspecified - Both Eyes 014 Family History Medical History Relation Comments Diabetes Father Glaucoma Father Heart Father Diabetes Mother Glaucoma Mother Heart Mother Relation Status Comments Father Mother Social History Tobacco Use Types Packs/Day Years Used Date Smoking Tobacco: Never Smokeless Tobacco: Never Alcohol Use Standard Drinks/Week Comments Yes 0 (1 standard drink = 0.6 oz pur e alcohol) occasionally Sex and Gender Information Value Date Recorded Sex Assigned at Not on file Legal Sex Male 8:09 AM EST Gender Identity Not on file Sexual Orientation Not on file Last Filed Vital Signs Vital Sign Reading Time Taken Comments Blood Pressure 141/76 12/21/2014 6:00 AM EDT Pulse 57 12/21/2014 6:00 AM EDT Temperature 36.6 C (97.8 F) 12/21/2014 6:00 AM EDT Respiratory Rate 18 12/21/2014 6:00 AM EDT Oxygen Saturation 98% 12/21/2014 6:00 AM EDT Inhaled Oxygen Concentration - - Weight 92.3 kg (203 lb 7.8 oz) 12/20/2014 8:30 A M EDT Height 175.3 cm (5' 9 ) 12/20/2014 8:30 AM EDT Body Mass Index 30.05 12/20/2014 8:30 AM EDT Plan of Treatment Health Maintenance Due Date Last Done Comments Anxiety Screening 1973 Depression Screening 1973 Hepatitis C Screening 1973 DTaP,Tdap,Td Vaccine (1 - Tdap) 1974 CT Colonography 2000 Cologuard (FIT-DNA) 2000 Colonoscopy 2000 Colorectal Cancer Screening 2000 Fecal Occult Blood 2000 Sigmoidoscopy 2000 Pneumococcal Vaccine: 50+ (1 of 1 - PCV) 2005 Shingrix Vaccine (1 of 2) 2005 Lipid Screening 05/04/2015 05/04/2010 Diabetes Screening 12/20/2017 12/20/2014, 05/04/2010 Advance Directive Discussion 06/30/2024 Influenza Vaccine (#1) 2025 RSV Vaccine (1 - 1-dose 75+ series) 2030 Procedures Procedure Name Priority Date/Time Associated Diagnosis Comments COMPREHENSIVE METABOLIC PANEL (EU,FV,HL,YOHAN,MM,SP) STAT 12/20/2014 1:46 AM EDT LIPID PANEL, FASTING 05/04/2010 8:32 AM EDT from Last 3 Months or Most Recently Relevant to Health Maintenance Results * (ABNORMAL) COMPREHENSIVE METABOLIC PANEL (EU,FV,HL,LK,YOHNA,MM,SP) (12/20/2014 1:46 AM EDT) Protein, Total 8.1 6.0 - 8.4 g/dL 12/20/2014 2:57 AM EDT [facility] Albumin 5.0 3.5 - 5.0 g/dL 12/20/2014 2:57 AM EDT [facility] Calcium 9.7 8.5 - 10.5 mg/dL 12/20/2014 2:57 AM EDT [facility] Bilirubin, Total 0.6 0.0 - 1.5 mg/dL 12/20/2014 2:57 AM EDT [facility] Alkaline Phosphatase 69 40 - 150 U/L 12/20/2014 2:57 AM EDT [facility] AST 31 7 - 40 U/L 12/20/2014 2:57 AM EDT [facility] Glucose 249(H) 65 - 100 mg/dL 12/20/2014 2:57 AM EDT [facility] BUN 19 10 - 25 mg/dL 12/20/2014 2:57 AM EDT [facility] Creatinine 0.81 0.70 - 1.40 mg/dL 12/20/2014 2:57 AM EDT [facility] Sodium 141 135 - 146 mmol/L 12/20/2014 2:57 AM EDT [facility] Potassium 4.1 3.5 - 5.0 mmol/L 12/20/2014 2:57 AM EDT [facility] Chloride 100 98 - 110 mmol/L 12/20/2014 2:57 AM EDT [facility] CO2 22(L) 23 - 32 mmol/L 12/20/2014 2:57 AM EDT [facility] Anion Gap 19(H) 0 - 15 mmol/L 12/20/2014 2:57 AM EDT [facility] ALT 58(H) 5 - 50 U/L 12/20/2014 2:57 AM EDT [facility] Glom Filtration Rate (AA) >60 >60 12/20/2014 2:57 AM EDT [facility] Glom Filtration Rate (TOMY) >60 >60 . 12/20/2014 2:57 AM EDT [facility] Comment: eGFR (Estimated GFR) Units of measure: mL/min/1.73 meters squared eGFR is derived from the 4 variable MDRD equation for glomerular filtration rate (GFR) based on a stable serum creatinine, gender, and age. According to KDOQI guidelines, an eGFR <60 mL/min/1.73m2 is sufficient to diagnose a patient with chronic kidney disease. Blood specimen (specimen) BLOOD SPECIMEN / Unknown 12/20/2014 1:46 AM EDT 12/20/2014 2:20 AM EDT Madhu Vaughn ([place]) Jimmy [facility] Final R esult Performing Organization Address [facility] de Phone Number [facility] [address] [place] [address] * (ABNORMAL) LIPID PANEL BASIC (05/04/2010 8:32 AM EDT) Triglyceride 183(H) 30 - 149 mg/dL [facility] Cholesterol, Total 205(H) 100 - 199 mg/dL [facility] HDL Cholesterol 32(L) >45 mg/dL [facility] VLDL Cholesterol 37 6 - 40 mg/dL [facility] LDL Calculated 136(H) 60 - 129 mg/dL [facility] Fasting Time 12 hrs [facility] TC:HDL Ratio 6.41(H) 1.00 - 5.00 [facility] LDL:HDL Ratio 4.25(H) 0.50 - 3.55 [facility] 05/04/2010 8:32 AM EDT 05/04/2010 8:39 AM EDT Jaylon Guillen MD LABORATORY Final Resul t Performing Organization Address [facility] de Phone Number [facility] [address] [place] [address] from Last 3 Months or Most Recently Relevant to Health Maintenance Insurance [facility] PPO
--- OUTSIDE RECORDS SUMMARY | 2025-03-08 09:36 | XMS_ITS | Encounter Summary ---
Author Organization [facility] Address [address] [place] [address] Phone Care Team Providers Care Beach Expert Name Role Phone Jaylon Guillen MD Primary Care Provider Unavail able Encounter Details Date Type Department Care Team (Late st Contact Info) Description 09/01/2023 Patient Risk Score ACO Care Management [address] [place] [phone] Social History Tobacco Use Types Packs/Day Years [...] on filedocumented in this encounter Care Teams Beach Expert Relationship Specialty Start Date End Date Jaylon Guillen MD PCP - General 12/21/18 documented as of this encounter
--- OUTSIDE RECORDS SUMMARY | 2025-03-08 09:36 | XMS_ITS | Encounter Summary ---
Author Organization [facility] Address [address] [place] [address] Phone Care Team Providers Care Private Tutor Name Role Phone Jaylon Guillen MD Primary Care Provider Unavail able Jaylon Guillen MD Unavailable Unavailable Encounter Details Date Type Department Care Team (Late st Contact Info) Description 12/30/2022 Patient Risk Score ACO Care Management [address] [facility] [address] [place] [phone] Social History Tobacco Use Types Packs/Day Years [...] on filedocumented in this encounter Care Teams Private Tutor Relationship Specialty Start Date End Date Jaylon Guillen MD PCP - General 12/21/18 Jaylon Guillen MD Office Address Unavailable as of 12/28/2022 PCP - [employer] Medicare Advantage PCP 02/28/22 06/29/23 documented as of this encounter
--- OUTSIDE RECORDS SUMMARY | 2025-03-08 09:36 | XMS_ITS | Encounter Summary ---
Author Organization [facility] Address [address] [place] [address] Phone Care Team Providers Care Worm Picker Name Role Phone Jaylon Guillen MD Primary Care Provider Unavail able Jaylon Guillen MD Unavailable Unavailable Encounter Details Date Type Department Care Team (Late st Contact Info) Description 04/01/2023 Patient Risk Score ACO Care Management [address] [facility] [address] [place] [phone] Social History Tobacco Use Types Packs/Day Years [...] on filedocumented in this encounter Care Teams Worm Picker Relationship Specialty Start Date End Date Jaylon Guillen MD PCP - General 12/21/18 Jaylon Guillen MD Office Address Unavailable as of 12/28/2022 PCP - [employer] Medicare Advantage PCP 02/28/22 06/29/23 documented as of this encounter
--- OUTSIDE RECORDS SUMMARY | 2025-03-08 09:54 | XMS_ITS | CCD ---
Author Organization [facility] Team Providers Care Senior Paralegal Name Role Phone Nekl, Jaylon Unavailable Unavailable Nekl, Jaylon E Unavailable Unavailable Alice Rosales Unavailable Unavailable Nekl, Jaylon E Unavailable Unavailable [...] Care Provider Mast, DO Светлана Attending Provider [phone] MAST, СВЕТЛАНА E Primary Care Physician [phone] Mast, DO Светлана Primary Care Provider MD Devendra Miner Attending Provider MAST, СВЕТЛАНА E Primary Care Physician Mast, DO Светлана Primary Care Provider [phone] MD Devendra Miner Attending Provider [phone] MD Devendar Miner Attending Provider Miner, Devendra Admitting Unavailable Miner, Devendra Attending Unavailable Mast, Светлана Attending Unavailable Mast, Светлана Admitting Unavailable Mast, Светлана Primary Care Unavailable Mast, Светлана Primary Care Unavailable Miner, Devendra Admitting Unavailable Miner, Devendra Attending Unavailable Mast, Светлана Primary Care Unavailable Miner, Devendra Admitting Unavailable Miner, Devendra Attending Unavailable Mast, DO Светлана Primary Care Provider [phone] Mast, DO Светлана Attending Provider [phone] MINER, Devendra R Attending Unavailable MINER, Devendra [...] Devendra R Admitting Unavailable MINER, Devendra R Admitting Unavailable MINER, Devendra R Attending Unavailable MINER, Devendra R Attending Unavailable Orzech, Heide X Admitting Unavailable Orzech, Heide X Attending Unavailable MINER, Devendra R Attending Unavailable MINER, Devendra R Attending Unavailable Orzech, Heide X Admitting Unavailable Orzech, Heide X Attending Unavailable MINER, Devendra R Admitting Unavailable MINER, Devendra R Attending Unavailable MINER, Devendra R Attending Unavailable Mast DO, Светлана Primary Care Provider Mast DO, Светлана Attending Provider [phone] Allergies Allergy Classification Reported Allergen(s) Allergy Type Date of Onset Reaction(s) Facility Cholesterol Absorption Inhibitors (1 source) ezetimibe; Translations: [Zetia TABS] Drug Allergy -[facility] Work Phone: colesevelam (1 source) colesevelam; Translations: [Welchol] Drug Allergy [facility] Work Phone: Linagliptin (1 source) Linagliptin; Translations: [Tradjenta TABS] Drug Allergy [facility] Work Phone: Sulfonamides (antibiotic) (1 source) Sulfonamides (Antibiotic); Translations: [Sulfa Drugs] Drug Allergy [facility] Work Phone: Thiazolidinediones (glitazones) (1 source) pioglitazone; Translations: [Pioglitazone HCl TABS] Drug Allergy [facility] Work Phone: (20 sources) colesevelam; Translations: [Welchol] Drug Allergy [facility] Repository (20 sources) ezetimibe; Translations: [Zetia TABS] Drug Allergy [facility] Work Phone: (20 sources) Linagliptin; Translations: [Tradjenta TABS] Drug Allergy [facility] Work Phone: (20 sources) pioglitazone; Translations: [Pioglitazone HCl TABS] Drug Allergy [facility] Work Phone: (20 sources) Sulfonamides (Antibiotic); Translations: [Sulfa Drugs] drug allergy Eruption of skin (disorder) Offsite Surgery (14 sources) Sulfonamides (Antibiotic); Translations: [Sulfa (Sulfonamide Antibiotics)] Allergy to substance 12-08-19 Unknown Reaction, Hives [facility] Comment on above: Updated list from pt and daughter (14 sources) Luvncak-OCE-QoW Reductase Inhibitor; Translations: [Rwwetnp-FNH-LhY Reductase Inhibitor] Allergy to substance 12-08-19 22 Unknown Reaction, Unknown Reaction, rash, Muscle Pain [facility] Comment on above: From updated patient list and daughter (1 source) ezetimibe Drug Allergy [facility] (1 source) Linagliptin Drug Allergy [facility] (1 source) pioglitazone Drug Allergy [facility] (1 source) Sulfonamides (Antibiotic) Drug allergy (disorder) [facility] (19 sources) HMG-CoA reductase inhibitor; Translations: [statins] Drug allergy rash, Eruption of skin (disorder) [facility] (6 sources) Sulfacetamide Sod-Sulfur Drug allergy rash [facility] Other (3 sources) SITagliptin Drug Allergy 07-14-19 shortness of breath [facility] (16 sources) Sulfur; Translations: [sulfur topical] Drug Allergy Eruption of skin (disorder) [facility] (1 source) Sulfacetamide Drug Allergy 07-14-19 rash [facility] (10 sources) Gliptins (DPP-4 Inhibitors); Translations: [Gliptins (DPP-4 Inhibitors)] Propensity to adverse reactions 10-16-19 Laryngitis [facility] Comment on above: Confirmed with pt li st and daughter. (5 sources) Sulfonamide; Translations: [sulfa drugs] Drug allergy Eruption of skin (disorder) Offsite Surgery (3 sources) Hmg-Coa Reductase Inhibitors (Statins); Translations: [statins] Propensity to adverse reactions (disorder) [facility] Repository Medications Current Medications Medication Drug Class(es) Dates Sig (Normalized) Sig (Original) aspirin 81 mg delayed release oral tablet (20 sources) Platelet Aggregation Inhibitor, Nonsteroidal Anti-inflammatory Drug Start: 06-04-2023 take 1 tablet by mouth once daily Aspirin (Enteric Coated Aspirin) 81 mg tablet,delayed release (DR/EC) Active 81 MG PO Daily October 16, 2023 12:00am Complies with drug therapy Basaglar MichaelPen (13 sources) Start: 06-04-2023 Basaglar KwikPen SubCutaneous, Daily, Refills(s) 0 Start Date: 06/04/23 Status: Ordered Repeat number: 1 Start: 06-04-2023 Basaglar KwikP en SubCutaneous, Daily, Refills(s) 0 Start Date: 06/04/23 Status: Ordered Blood-Glucose Sensor (Freest yle Mohamud 3 Sensor) device (11 sources) Start: 09-01-2024 Blood-Glucose Sensor (Freestyle Mohamud 3 Sensor) device Active 0 .Route September 01, 2024 9:50am As directed Start: 09-19-2023 End: 09-01-2024 Blood-Glucose Sensor (Freest yle Mohamud 3 Sensor) device Discontinued 0 .Route September 19, 2023 12:00am September 01, 2024 9:50am As directed Start: 09-19-2023 Blood-Glucose Sensor (Freestyle Mohamud 3 Sensor) device Active 0 .Route September 18, 2023 11:00pm As directed Start: 09-19-2023 Blood-Glucose Sensor (Freestyle Mohamud 3 Sensor) device Active 0 .Route September 19, 2023 12:00am As directed ciprofloxacin 500 mg oral tablet (5 sources) Quinolone Antimicrobial Start: 02-23-2025 End: 03-02-2025 Cipro 500 mg Tab 500 mg = 1 tab(s), Oral, BID, start 3 days prior to procedure, X 7 day(s), # 14 tab(s), Refills(s) 0, [facility]acy[facility], [facility], cm, 02/23/25 8:11:00 EDT, Height/Length Dosing, 90.7, kg, 02/23/25 8:11:00 EDT, Weight Dosing Start Date: 02/23/25 Stop Date: 03/02/25 Status: Ordered Quantity: 14.0 Unit: tab(s) Repeat number: 1 Start: 06-04-2023 Cipro 500 mg T ab 500 mg = 1 tab(s), Oral, As Directed, Patient to take 1 tab the day before procedure and the 2nd tab the day of procedure once completed, # 2 tab(s), Refills(s) 0, Pharmacy: [facility], [facility], cm, 06/04/23 13:57:00 EST, Height/Length Dosing, 87, kg, 06/04/23 13:57:00 EST, Weight Dosing Start Date: 06/04/23 Status: Ordered Dexcom G7 Sensor - (1 source) Dexcom G7 Sensor - as directed 1 box Active doxycycline hyclate 100 mg oral capsule (3 sources) Tetracycline-cla ss Drug Start: 4 take 1 capsule by mouth twice daily doxycycline hyclate 100 mg Cap 100 mg = 1 cap(s), Oral, BID, # 14 cap(s), Refills(s) 0, Pharmacy: [facility], 178, cm, 11/05/23 15:04:00 EDT, Height/Length Dosing, 87, kg, 11/05/23 15:04:00 EDT, Weight Dosing Start Date: 01/26/24 Status: Ordered FreeStyle Mohamud 3 Sensor - (5 sources) Start: 3 FreeStyle Mohamud 3 Sensor - as directed 1 box Jan, Active 3 ml insulin glargine 100 unt/ml pen injector (20 sources) Insulin Analog Start: End: inject 8 [IU] by subcutaneous injection once daily at bedtime Insulin Glargine 100 unit/mL (3 mL) insulin pen Active 8 UNIT SUBCUT Daily at bedtime June 01, 2024 6:14pm Complies with drug therapy Start: 10-16-2023 End: 04-12-2024 inject 10 [IU] by subcutaneous injection once daily at bedtime Insulin Glargine 100 unit/mL (3 mL) insulin pen Discontinued 10 UNIT SUBCUT Daily at bedtime October 16, 2023 12:00am April 12, 2024 8:24am Start: 09-18-2023 Insulin Glargi ne (Basaglar Kwikpen [...] day; Note: Source Status: Continue; Provider: Castro Turcios Start: 10-20-2018 Basaglar KwikP en 100 UNIT/ML [...] [IU] by shaw bcutaneous injection once daily Andraagllindsay RodriguezPen 100 UNIT/ML 10 Units Subcutaneous once a day Active lisinopril 2.5 mg oral tablet (20 sources) Angiotensin Converting Enzyme Inhibitor Start: 03-07-2025 Lisinopril 2.5 mg tablet Active MG PO March 07, 2025 12:00am Complies with drug therapy Start: 09-01-2024 End: 03-07-2025 take 1 tablet by mouth once daily Lisinopril 10 mg tablet Discontinued 0 .ROUTE .COMPLEX 90 September 01, 2024 9:50am March 07, 2025 8:36am TAKE 1 TABLET BY MOUTH ONCE DAILY Start: 05-11-2020 End: 09-01-2024 take 1 tablet by mouth once daily Lisinopril 10 mg tablet Discontinued 1 TAB PO Daily September 18, 2023 12:00am September 19, 2023 8:41am FreeTextSi tablet Orally Once a day; Note: Source Status: Continue; Provider: Castro Turcois Start: 07-20-2018 take 1 tablet by savi once daily Lisinopril 5 MG Oral Tablet Take 1 tablet daily Quantity: 90 Refills: 3 Jaylon Ulloa MD Start : 20-Jul-2018 Active 24 hr metFORMIN hydrochlorid e 500 mg extended release oral tablet (20 sources) Biguanide Start: 03-07-2025 take 2 tablets by mo [facility] three times daily in the morning, then take 1 tablet by mouth at lunch, then take 1 tablet by mouth at dinner Start: 09-01-2024 End: 03-07-2025 take 2 tablets by mouth twice daily Metformin 500 mg tablet extended release 24 hr Discontinued 0 .ROUTE .COMPLEX 360 September 01, 2024 9:50am March 07, 2025 8:39am TAKE 2 TABLETS (1000MG) BY MOUTH TWICE A DAY Start: 10-16-2023 End: 09-01-2024 Metformin 500 mg tablet exte nded release 24 hr Discontinued 1000 MG PO .COMPLEX October 16, 2023 12:00am September 01, 2024 9:50am 1000 mg QAM, 500 mg Noon, 500 mg QPM Provider: Mast Светлана E Start: 09-18-2023 End: 10-16-2023 Metformin 500 mg tablet exte nded release 24 hr Discontinued 1000 MG PO Twice daily 360 September 18, 2023 1:59pm October 16, 2023 12:26pm FreeTextSi tablets Orally twice a day; Note: Source Status: Continue; Provider: Castro Turcios Start: 09-18-2023 End: 09-18-2023 take 1 tablet by mouth twice daily Metformin 500 mg tablet extended release 24 hr Discontinued 2 TAB PO Twice daily September 18, 2023 12:00am September 18, 2023 2:05pm FreeTextSi tablets Orally twice a day; Note: Source Status: Continue; Provider: Castro Turcios Start: 09-18-2023 End: 10-16-2023 take 2 tablets by mouth twice daily Metformin Discontinued 1000 MG PO Twice daily 360 September 18, 2023 1:59pm October 16, 2023 12:26pm FreeTextSi tablets Orally twice a day; Note: Source Status: Continue; Provider: Castro Turcios Start: 06-04-2023 take 1 mg by mouth once daily metformin 500 mg ER Tab mg tab(s), Oral, Daily, Refills(s) 0 Start Date: 06/04/23 Status: Ordered Repeat number: 1 Start: 10-26-2013 take 2 tablets by mo [facility] twice daily metFORMIN HCl ER 500 [...] oral tablet (20 sources) Glinide Start: 12-06-2023 End: 12-13-2024 take 1 tablet by mouth three times daily Repaglinide 1 mg tablet Active 0 .ROUTE .COMPLEX 270 December 13, 2024 4:13pm TAKE ONE TABLET BY MOUTH THREE TIMES DAILY Complies with drug therapy Start: 06-04-2023 End: 06-08-2024 take 1 tablet by mouth three times daily at mealtime Repaglinide 1 mg tablet Discontinued 1 TAB PO 3 times per day with meals September 18, 2023 12:00am December 06, 2023 7:38am Start: 08-26-2014 take 1 tablet by savi th three times daily Repaglinide 2 MG Oral Tablet TAKE 1 TABLET BY MOUTH THREE TIMES DAILY Quantity: 270 Refills: 3 Ordered: 18-Jan-2022 Jaylon Ulloa MD Start : 26-Aug-2014 Active rosuvastatin calcium 5 mg oral tablet (1 source) HMG-CoA Reductase Inhibitor Start: 03-07-2025 Rosuvastatin 5 mg tablet Active MG PO March 07, 2025 12:00am Complies with drug therapy tamsulosin hydrochloride 0.4 mg oral capsule (20 sources) alpha-Adrenergic Maricel Start: 06-04-2023 End: 05-29-2024 take 1 capsule by mouth once daily tamsulosin 0.4 mg Cap 0.4 mg = 1 cap(s), Oral, Daily, # 30 cap(s), Refills(s) 11, Pharmacy: [facility], 178, cm, 02/04/24 15:09:00 EDT, Height/Length Dosing, 87, kg, 02/04/24 15:09:00 EDT, Weight Dosing Start Date: 06/01/24 Status: Ordered Quantity: 30.0 Unit: cap(s) Repeat number: 12 Completed/Discontinued Medications Medication Drug Class(es) Dates Sig [...] Jaylon Ulloa MD Start : 13-Jun-2021 Active codeine phosphate 2 mg/ml / guaiFENesin 20 [...] Start: 03-25-2023 take 3 tablets by mo ut every twelve hours Paxlovid (300/100) 20 x [...] Translations: [Calculus in bladder] Onset: 06-04-2023 Episodic Cancer of prostate (10 sources) Malignant neoplasm of prostate; Translations: [Malignant tumor of prostate] Onset: 02-04-2024 Chronic Coronary atherosclerosis and other heart disease (16 sources) Coronary atherosclerosis; Translations: [Coronary atherosclerosis of unspecified type of vessel, lummi or graft] Onset: 02-11-2022 Chronic Diabetes mellitus without complication (20 sources) Type 2 diabetes mellitus; Translations: [Diabetes mellitus without mention of complication, type II or unspecified type, not stated as uncontrolled] Onset: 10-10-2022 Chronic Comment on above: Problem List clean-u p per request of Phys. EHR Cmte Disorders of lipid metabolism (20 sources) Hypercholesterolemia; Translations: [Pure hypercholesterolemia] Onset: 10-22-2021 Chronic Diverticulosis and diverticulitis (1 source) Diverticulosis of large intestine without perforation or abscess without bleeding; Translations: [DVRTCLOS LG INT NO PERF/ABSC W/O BL] Onset: 10-10-2022 Chronic Essential hypertension (20 sources) Hypertensive disorder; Translations: [Unspecified essential hypertension] Onset: 10-10-2022 Chronic Genitourinary symptoms and ill-defined conditions (13 sources) Gross hematuria; Translations: [Blood in urine] Onset: 06-04-2023 Episodic Hyperplasia of prostate (20 sources) Benign prostatic hypertrophy with outflow obstruction; Translations: [Benign prostatic hyperplasia with lower urinary tract symptoms] Onset: 06-04-2023 Chronic Immunizations and screening for infectious disease (20 sources) Patient encounter status; Translations: [Other specified vaccination] Episodic Other aftercare (2 sources) intermediate (current) use of insulin; 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] Onset: 10-10-2022 Episodic Other connective tissue disease (7 sources) Pain in right arm; Translations: [Pain in right arm] 12-22-2023 Episodic Other connective tissue disease (2 sources) Pain in right arm; Translations: [Pain in limb] 12-22-2023 Episodic Other gastrointestinal disorders (3 sources) Stool DNA-based colorectal cancer screening positive; Translations: [Abnormal feces] Episodic Other gastrointestinal disorders (1 source) Other fecal abnormalities; Translations: [OTHER FECAL ABNORMALITIES] Onset: 10-10-2022 Episodic Other lower respiratory disease (16 sources) Cough; Translations: [Cough] Episodic Other nervous system disorders (13 sources) Nerve palsy; 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 EHR Cmte Other nervous system disorders (2 sources) Paresthesia of hand ; Translations: [Paresthesia of skin] 07-16-2024 Episodic Other nutritional; endocrine; and metabolic disorders (20 [...] other specified conditions] Onset: 06-04-2023 Episodic Unclassified (13 sources) History of clinical finding in subject 06-04-2023 Viral infection (5 sources) Disease caused by 2019-nCoV; Translations: [Other specified viral infection] Episodic Past or Other Problems Problem Classification Problem Date Documented Da te Episodic/Chronic Residual codes; unclassified (1 source) Family history of ischemic heart disease and other diseases of the circulatory system; Translations: [FAM HX ISCHEMIC HRT DZ OTH DZ CIRC] Onset: 02-11-2022 Episodic Unclassified (2 sources) Patient encounter status; Translations: [Screening for colorectal cancer] NEGATED: Highlighted row has not occurred!Residual codes; unclassified (13 sources) Disease Episodic Results Test Name Value Interpretation Reference Range Facility Ambulatory Visit Summaryon 0 02-23-2025 Ambulatory Visit Summary Ambulatory Visit Summary GRETEL BAINS :1955 Visit Date:02/23/2025 Ambulatory Visit Instructions Your Diagnosis Prostate cancer BPH with obstruction/lower urinary tract symptoms Your Care Team Attending Physician - SCOTTY VO, Devendra Romero Primary Care Physician - СВЕТЛАНА ERAZO DO This Is Your Medications List tamsulosin (tamsulosin 0.4 mg Cap) Contact prescribing physician if questions or concerns aspirin (aspirin 81 mg Oral EC Tab) insulin glargine (Basaglar KwikPen) lisinopril (lisinopril 10 mg Tab) metformin (metformin 500 mg ER Tab) repaglinide (repaglinide 1 mg Tab) Procedures Performed MRI-US fusion guided transrectal biopsy of prostate (01/26/2024), Urodynamics (12/30/2023), Cystoscopy (07/01/2023), Cystoscopy, Procedure on knee. Discharge Vitals Heart Rate (Peripheral) 58 Respiratory Rate 18 Blood Pressure 138/74 Height 178 cm Height 70 in Weight 90.7 kg Weight 199.959 lb BMI 28.63 What to do next You Need to Schedule the Following Appointments Follow Up with SCOTTY VO, VAL Scott When: Where: [facility] [place] [address] Medications What How Much When Instructions Unchanged tamsulosin (tamsulosin 0.4 mg Cap) 1 Capsules By Mouth Every day Unchanged aspirin (aspirin 81 mg Oral EC [...] prescribing physician if questions or concerns Allergies sulfa drugs (Rash) Sulfur (Rash) statins (Rash) Problems Ongoing - Any problem that you are currently receiving treatment for. Bladder stone BPH with obstruction/lower urinary tract symptoms History of elevated PSA Hypertension Prostate cancer Type 2 diabetes mellitus Patient Survey You may receive a survey via text or e-mail asking about your office visit. Please share your experience with us by completing your survey. We appreciate your feedback and thank you for choosing us for your care. Education Materials Transrectal Ultrasound-Guided Prostate Biopsy, Care After The following information offers guidance on how to care for yourself after your procedure. Your health care provider may also give you more specific instructions. If you have problems or questions, contact your health care provider. What can I expect after the procedure? After the procedure, it is common to have: ??? Pain and discomfort near your rectum, especially while sitting. ??? [place]-colored urine due to small amounts of blood in your urine. ??? A burning feeling while urinating. ??? Blood in your stool (feces) or bleeding from your rectum. ??? Blood in your semen. Follow these instructions at home: Medicines ??? Take [id number]-noupqjn and prescription medicines only as told by your health care provider. ??? If you were given a sedative during your procedure, it can affect you for several hours. Do not drive or operate machinery until your health care provider says that it is safe. ??? If you were prescribed an antibiotic medicine, take it as told by your health care provider. Do not stop using the antibiotic even if you start to feel better. Activity ??? Return to your normal activities as told by your health care provider. Ask your health care provider what activities are safe for you. ??? Ask your health care provider when it is okay for you to resume sexual activity. ??? You may have to avoid lifting. Ask your health care provider how much you can safely lift. General instructions ??? Drink enough fluid to keep your urine pale yellow. ??? Watch your urine, stool, and semen for new or increased bleeding. ??? Keep all follow-up visits. This is important. Contact a health care provider if: ??? You have any of the following: ? Blood clots in your urine or stool. ? Blood in your urine more than 2 weeks after the procedure. ? Blood in your semen more than 2 months after the procedure. ? New or increased bleeding in your urine, stool, or semen. ? Severe pain in your abdomen. ??? Your urine smells bad or unusual. ??? You have trouble urinating. ??? Your lower abdomen feels firm. ??? You have problems getting an erection. ??? You have nausea or you vomit. Get help right away if: ??? You have a fever or chills. This could be a sign of infection. ??? You have bright red urine. ??? You have severe pain that does not get better with medicine. (more content not included)... [facility] Urology Office/Clinic Noteon 02-23-2025 Urology Office/Clinic Note Urology Office/Clinic Note Chief Complaint 6 month follow up HPI Staff 6 month follow up w/PSA ACTIVE SURVIELLANCE DX: BPH w/LUTS. *Flomax 0.4 mg qd. Previous PSA PSA 2.9 07/14/24 Current PSA 3.4 02/17/25 IPSS 3 Denies pain or burning, denies visible blood. Pt unable to give urine sample today History of Present Illness Tests reviewed: reviewed PSA I have reviewed the previous health record information and history for this patient from Dr. Miner. I have reviewed and verified the staff HPI to be accurate for this encounter. Review of Systems PHQ Score Initial [...] HPI. Physical Exam Vitals & Measurements HR: 58(Peripheral) RR: 18 BP: 138/74 HT: 178 cm HT: 70 in WT: 90.7 kg WT: 199.959 lb BMI: 28.63 General Appearance: alert, no distress, well nourished, well developed male. Assessment/Plan 1. Prostate cancer (C61: Malignant neoplasm of prostate) ACTIVE SURVEILLANCE PSA: 02/09/16 - 4.19 10/09/16 - 2.16 07/18/17 - 1.68 02/11/19 - 1.72 06/25/21 - 2.61 11/05/23 - 4.50 07/14/24 - 2.90 02/17/25 - 3.5 MRI of prostate 12/25/23 - PI-RADS 5 lesion involving the anterior aspect of the R peripheral zone at the level o f the mid gland measuring 15 x 9 mm. Prostate volume 80 cc. S/p MRI fusion TRUS/bx 07/29/24 - G7 (4+3) noted in 1/4 cores (CNB/CHAD), 10% of submitted tissue involved, GG3. SAMANTHA 07/21/24: ~ 45 g, no nodules. PSA increased slight from prior but has been higher previously. Given it has been 1 yr since dx, advised pt he is a due for a confirmatory biopsy to evaluate if disease has progressed. Risks/benefits discussed. States he had some discomfort after previous biopsy so prefers to have this done under MAC anesthesia. -Will schedule Confirmatory TRUS/bx. The procedural risks, benefits, details, and treatment alternatives have been discussed with the patient. These include minimal to severe bleeding, infection, blood in the semen, inability to urinate, and severe infection requiring hospitalization and IV antibiotics, among others. Full informed consent has been obtained. Will order Mac anesthesia. 2. BPH with obstruction/lower urinary tract symptoms (N40.1: Benign prostatic hyperplasia with lower urinary tract symptoms) No sample provided for UA today. IPSS 3 (1). Taking Flomax 0.4 mg qd. No bother with urination. -Cont Flomax wo changes. Pt to call for refills. Follow-up With When Contact Information SCOTTY VO, Devendra Romero, URL [address] [place] [address] [place] [address] Additional Instructions: sched confirmatory TRUS/bx Patient Education Transrectal Ultrasound-Guided Prostate Biopsy, Care After Transrectal Ultrasound-Guided Prostate Biopsy April Estrella, personally scribed for Dr. Miner on 02/23/2025 08:27:00. . Documentation recorded by the scribeApril, accurately reflects the services(s) I performed and decisions made by me. Authenticated by Dr. Miner on 02/23/2025 08:32:02. Problem List/Past Medical History Ongoing Bladder stone BPH with obstruction/lower urinary tract symptoms History of elevated PSA Hypertension Prostate cancer Type 2 diabetes mellitus Historical No qualifying data Procedure/Surgical History MRI-US fusion guided transrectal biopsy of prostate (01/26/2024), Urodynamics (12/30/2023), Cystoscopy (07/01/2023), Cystoscopy, Procedure on knee. Medications aspirin 81 mg Oral EC Tab, Oral, Daily Basaglar KwikPen, SubCutaneous, Daily lisinopril 10 mg Tab, Oral, Daily metformin 500 mg ER Tab, Oral, Daily repaglinide 1 mg Tab, Oral, TIDAC tamsulosin 0.4 mg Cap, 0.4 mg= 1 cap(s), Oral, Daily, 11 refills Allergies sulfa drugs (Rash) Sulfur (Rash) statins (Rash) Social History Tobacco Never (less than 100 in lifetime) Tobacco Use:. Never Smokeless Tobacco Use:., 02/23/2025 Family History Diabetes: Mother and Father. Heart disease: Mother. Immunizations Vaccine Date Status influenza virus vaccine, inactivated 06/16/2024 Recorded influenza virus vaccine, inactivated 04/11/2023 Recorded pneumococcal 20-valent conjugate vaccine 03/21/2023 Recorded diphtheria/pertussis, acel/tetanus adult 12/17/2022 Recorded SARS-CoV-2 (COVID-19) [id number] 06/02/2022 Recorded zoster vaccine, inactivated 04/19/2022 Recorded influenza virus vaccine, inactivated 04/08/2022 Recorded zoster vaccine, inactivated 01/11/2022 Recorded SARS-CoV-2 (COVID-19) mRN (more content not included)... Normal [facility] Comment on above: Result Comment: Elec tronically Signed By: Devendra MINER MD\.br\Date and Time Signed: 02/23/25 08:32 EDT\.br\Electronically Co-Signed By: April Jhaveri\.br\Date and Time Co-Signed: 02/23/25 08:27 EDT PSA Totalon 02-17-2025 PSA Total 3.5 ng/mL Normal 0.1-3.5 [facility] Comment on above: Result Comment: The concentration of PSA determined by different manufacturers can vary due to differences in assay methods and reagent specificity. Values obtained from different assay methods cannot be used interchangeably. The methodology used for this result was chemiluminescence using [employer]'s Access Hybritech PSA reagent. Performed By: #### 1 [id number] #### [facility] [address] [place] [address] HbA1c HPLC (Bld) [Mass fract ion]on 11-08-2024 HbA1c (Bld) [Mass fraction] Hemoglobin A1c/Hemoglobin.total in Blood by HPLC [facility] Ambulatory Visit Summaryon 0 07-21-2024 Ambulatory Visit Summary Ambulatory Visit Summary GRETEL BAINS :1955 Visit Date:07/21/2024 Ambulatory Visit Instructions Your Diagnosis Prostate cancer BPH with obstruction/lower urinary tract symptoms Your Care Team Attending Physician - Devendra MINER MD Primary Care Physician - СВЕТЛАНА ERAZO DO This Is Your Medications List tamsulosin (tamsulosin 0.4 mg Cap) Contact prescribing physician if questions or concerns aspirin (aspirin 81 mg Oral EC Tab) insulin glargine (Basaglar KwikPen) lisinopril (lisinopril 10 mg Tab) metformin (metformin 500 mg ER Tab) repaglinide (repaglinide 1 mg Tab) [Image Removed: STOP]Stop taking these medications doxycycline (doxycycline hyclate 100 mg Cap) Procedures Performed MRI-US fusion guided transrectal biopsy of prostate (01/26/2024), Urodynamics (12/30/2023), Cystoscopy (07/01/2023), Cystoscopy, Procedure on knee. Discharge Vitals Heart Rate (Peripheral) 70 Respiratory Rate 16 Blood Pressure 150/84 Height 178 cm Height 70 in Weight 87 kg Weight 191.802 lb BMI 27.46 What to do next Scheduled Follow-Up Appointments Friday 8:00 AM EDT With: Devendra MINER MD Where: [facility] [address] [place] [address]- You Need to Schedule the Following Appointments Follow Up with Devendra MINER MD, URL When: Where: [facility] [address] [place] [address]- Medications What How Much When Instructions Unchanged tamsulosin (tamsulosin 0.4 mg Cap) 1 Capsules By Mouth Every day Unchanged aspirin (aspirin 81 mg Oral EC [...] Contact prescribing physician if questions or concerns What How Much When Comments Stop Taking doxycycline (doxycycline hyclate 100 mg Cap) 1 Capsules By Mouth 2 times a day Allergies sulfa drugs (Rash) Sulfur (Rash) statins (Rash) Problems Ongoing - Any problem that you are currently receiving treatment for. Bladder stone BPH with obstruction/lower urinary tract symptoms History of elevated PSA Hypertension Prostate cancer Type 2 diabetes mellitus Patient Survey You may receive a survey via text or e-mail asking about your office visit. Please share your experience with us by completing your survey. We appreciate your feedback and thank you for choosing us for your care. Education Materials Prostate Cancer The prostate is a small gland that produces fluid that makes up semen (seminal fluid). It is located below the bladder in men, in front of the rectum. Prostate cancer is the abnormal growth of cells in the prostate gland. What are the causes? The exact cause of this condition is not known. What increases the risk? You are more likely to develop this condition if: ??? You are 65 years of age or older. ??? You have a family history of prostate cancer. ??? You have a family history of breast and ovarian cancer. ??? You have genes that are passed from parent to child (inherited), such as BRCA1 and BRCA2. ??? You have Ramírez syndrome. men and men of descent are diagnosed with prostate cancer at higher rates than other men. The reasons for this are not well understood and are likely due to a combination of genetic and environmental factors. What are the signs or symptoms? Symptoms of this condition include: ??? Problems with urination. This may include: ? A weak or interrupted flow of urine. ? Trouble starting or stopping urination. ? Trouble emptying the bladder all the way. ? The need to urinate more often, especially at night. ??? Blood in urine or semen. ??? Persistent pain or discomfort in the lower back, lower abdomen, or hips. ??? Trouble getting an erection. ??? Weakness or numbness in the legs or feet. How is this diagnosed? This condition can be diagnosed with: ??? A digital rectal exam. For this exam, a health care provider inserts a gloved finger into the rectum to feel the prostate gland. ??? A blood test called a prostate-specific antigen (PSA) test. ??? A procedure in which a sample of tissue is taken from the prostate and checked under a microscope (prostate biopsy). ??? An imaging test called transrectal ultrasonography. Once the condition is diagnosed, tests will be done to determine how far the cancer has spread. This is called staging the c (more content not included)... Normal [facility] Urology Office/Clinic Noteon 07-21-2024 Urology Office/Clinic Note Urology Office/Clinic Note Chief Complaint 6 month follow up HPI Staff 6 mos with PSA and SAMANTHA due to prostate cancer. Started ACTIVE SURVEILLANCE at prior OV. Other Dx: BPH w/LUTS. *Flomax 0.4 mg qd. Current PSA 2.9 07/14/24, previous PSA 4.5 11/05/23 Pt unable to give urine sample Dysuria: _ Incomplete bladder emptying: denies Hematuria: _ Frequency: denies Urgency: denies Nocturia: 1x Stream: _ Leaking: _ Post void dripping: _ Wearing pads/ Depends: denies Urge incontinence: denies Stress incontinence: denies Incontinence without Sensory Awareness: denies Abdominal pain: denies Flank pain: denies Sexual complaints: denies History of Present Illness Tests reviewed: UA, PSA I have reviewed the previous health record information and history for this patient from Dr. Miner. I have reviewed and verified the staff HPI to be accurate for this encounter. Review of Systems PHQ Score Initial [...] HPI. Physical Exam Vitals & Measurements HR: 70(Peripheral) RR: 16 BP: 150/84 HT: 70 in HT: 178 cm WT: 87 kg WT: 191.802 lb BMI: 27.46 General Appearance: alert, no distress, well nourished, well developed male. SAMANTHA ~ 45 g, no nodules. Assessment/Plan 1. Prostate cancer (C61: Malignant neoplasm of prostate) ACTIVE SURVEILLANCE PSA: 02/09/16 - 4.19 10/09/16 - 2.16 07/18/17 - 1.68 02/11/19 - 1.72 06/25/21 - 2.61 11/05/23 - 4.50 07/14/24 - 2.90 MRI of prostate 12/25/23 - PI-RADS 5 lesion involving the anterior aspect of the R peripheral zone at the level o f the mid gland measuring 15 x 9 mm. Prostate volume 80 cc. S/p MRI fusion TRUS/bx 01/26/24 - G7 (4+3) noted in 1/4 cores (CNB/CHAD), 10% of submitted tissue involved, GG3. PSA decreased. Will cont to monitor. SAMANTHA ~ 45 g, no nodules. Follow up 6 mos with PSA or sooner if needed. Pt understands and agrees with plan. -Cont . 2. BPH with obstruction/lower urinary tract symptoms (N40.1: Benign prostatic hyperplasia with lower urinary tract symptoms) Pt unable to provide urine sample today. IPSS 1. Taking Flomax 0.4 mg qd. Follow-up With When Contact Information SCOTTY VO, Devendra Romero, URL [facility] [address], [place] [address]- Additional Instructions: 6 mos with PSA () Patient Education Prostate Cancer I, Debbie Mario, personally scribed for Dr. Miner on 07/21/2024 08:24:07. . Documentation recorded by the scribeDebbie, accurately reflects the services(s) I performed and decisions made by me. Authenticated by Dr. Miner on 07/21/2024 08:26:29. Problem List/Past Medical History Ongoing Bladder stone BPH with obstruction/lower urinary tract symptoms History of elevated PSA Hypertension Prostate cancer Type 2 diabetes mellitus Historical No qualifying data Procedure/Surgical History MRI-US fusion guided transrectal biopsy of prostate (01/26/2024), Urodynamics (12/30/2023), Cystoscopy (07/01/2023), Cystoscopy, Procedure on knee. Medications aspirin 81 mg Oral EC Tab, Oral, Daily Basaglar KwikPen, SubCutaneous, Daily doxycycline hyclate 100 mg Cap, 100 mg= 1 cap(s), Oral, BID lisinopril 10 mg Tab, Oral, Daily metformin 500 mg ER Tab, Oral, Daily repaglinide 1 mg Tab, Oral, TIDAC tamsulosin 0.4 mg Cap, 0.4 mg= 1 cap(s), Oral, Daily, 11 refills Allergies sulfa drugs (Rash) Sulfur (Rash) statins (Rash) Social History Tobacco Never (less than 100 in lifetime) Tobacco Use:. Never Smokeless Tobacco Use:., 07/21/2024 Family History Diabetes: Mother and Father. Heart disease: Mother. Immunizations Vaccine Date Status influenza virus vaccine, inactivated 06/16/2024 Recorded influenza virus vaccine, inactivated 04/11/2023 Recorded pneumococcal 20-valent conjugate vaccine 03/21/2023 Recorded diphtheria/pertussis, acel/tetanus adult 12/17/2022 Recorded SARS-CoV-2 (COVID-19) [id number] 06/02/2022 Recorded zoster vaccine, inactivated 04/19/2022 Recorded influenza virus vaccine, inactivated 04/08/2022 Recorded zoster vaccine, inactivated 01/11/2022 Recorded SARS-CoV-2 (COVID-19) mRNA-1273 vaccine 05/21/2021 Recorded influenza virus vaccine, inactivated 03/01/2021 Recorded SARS-CoV-2 (COVID-19) mRNA-1273 vaccine 08/01/2020 Recorded SARS-CoV-2 (COVID-19) mRNA-1273 vaccine 07/04/2020 Recorded influenza virus vaccine, inactivated 03/09/2020 Recorded influenza vi (more content not included)... Normal [facility] Comment on above: Result Comment: Elec tronically Signed By: Devendra MINER MD\.br\Date and Time Signed: 07/21/24 08:26 EST\.br\Electronically Co-Signed By: Debbie Mario.br\Date and Time Co-Signed: 07/21/24 08:24 EST CHEMISTRYOrdered By: SYSTEM SYSTEM on 07-14-2024 Prostate specific Ag [Mass/Vol] 2.9 ng/mL Normal 0.1 - 3.5 ng/mL [facility] Comment on above: Interpretive Data: T he concentration of PSA determined by different manufacturers can vary due to differences in assay methods and reagent specificity. Values obtained from different assay methods cannot be used interchangeably. The methodology used for this result was chemiluminescence using [employer]'s Access Hybritech PSA reagent. PSA Totalon 07-14-2024 Prostate specific Ag [Mass/Vol] 2.9 ng/mL Normal 0.1-3.5 [facility] Comment on above: Result Comment: The concentration of PSA determined by different manufacturers can vary due to differences in assay methods and reagent specificity. Values obtained from different assay methods cannot be used interchangeably. The methodology used for this result was chemiluminescence using [employer] Access Hybritech PSA reagent. Performed By: #### 1 [id number] #### [facility] [address] [place] [address] Albumin [Mass/volume] in Ser um or Plasma by Bromocresol green (BCG) dye binding methoOrdered By: Светлана Erazo on 04-14-2024 Albumin BCG dye [Mass/Vol] 4.6 g/dL 3.5-5.7 [facility] Cholesterol in LDL Calc [Mas s/Vol]Ordered By: Светлана Erazo on 04-14-2024 Cholesterol in LDL [Mass/Vol] 134 mg/dL High 0-100 [facility] Comment on above: LDL ATP III CLASSIFI CATIONLDL less than 100 mg/dL OptimalLDL 100-129 mg/dL Near or above optimalLDL 130-159 mg/dL Borderline highLDL 160-189 mg/dL HighLDL greater than 189 mg/dL Very high Cholesterol in VLDL Calc [Ma ss/Vol]Ordered By: Светлана Erazo on 04-14-2024 Cholesterol in VLDL [Mass/Vol] 30 mg/dL [facility] Complete Blood Count Auto Di ffOrdered By: Светлана Erazo on 04-14-2024 Basophils (Bld) [#/Vol] 0.1 10*3/uL Normal 0.0-0.2 [facility] Comment on above: Result Comment: PERF ORMED BY: [facility] [address] [place] [address] PATHOLOGIST HEATING AND VENTILATING TENDER JEAN-PIERRE ALFARO M.D. Performed By: #### L IPID, PSAS W RFX, URMACRERAT, CMP, CBC #### [address] Basophils/100 WBC (Bld) 1.0 % Normal . [facility] Comment on above: Performed By: #### L IPID, PSAS W RFX, URMACRERAT, CMP, CBC #### [address] Eosinophils (Bld) [#/Vol] 0.4 10*3/uL Normal 0.0-0.45 [facility] Comment on above: Performed By: #### L IPID, PSAS W RFX, URMACRERAT, CMP, CBC #### [address] Eosinophils/100 WBC (Bld) 5.6 % Normal . [facility] Comment on above: Performed By: #### L IPID, PSAS W RFX, URMACRERAT, CMP, CBC #### [address] Erythrocyte distribution width (RBC) [Ratio] 13.4 % Normal 12.0-14.8 [facility] Comment on above: Performed By: #### L IPID, PSAS W RFX, URMACRERAT, CMP, CBC #### [address] Hematocrit (Bld) [Volume fraction] 38.2 % Low 38.8-50.0 [facility] Comment on above: Performed By: #### L IPID, PSAS W RFX, URMACRERAT, CMP, CBC #### [address] Hemoglobin (Bld) [Mass/Vol] 13.2 g/dL Normal 13.0-17.0 [facility] Comment on above: Performed By: #### L IPID, PSAS W RFX, URMACRERAT, CMP, CBC #### [facility] [address] Lymphocytes (Bld) [#/Vol] 2.0 10*3/uL Normal 1.00-4.8 [facility] Comment on above: Performed By: #### L IPID, PSAS W RFX, URMACRERAT, CMP, CBC #### [facility] [address] Lymphocytes/100 WBC (Bld) 31.6 % Normal . [facility] Comment on above: Performed By: #### L IPID, PSAS W RFX, URMACRERAT, CMP, CBC #### [facility] [address] MCH (RBC) [Entitic mass] 31.2 pg Normal 27.5-35.2 [facility] Comment on above: Performed By: #### L IPID, PSAS W RFX, URMACRERAT, CMP, CBC #### [address] MCV (RBC) [Entitic vol] 90.4 fL Normal 83.5-[address] [facility] Comment on above: Performed By: #### L IPID, PSAS W RFX, URMACRERAT, CMP, CBC #### [address] Monocytes (Bld) [#/Vol] 0.5 10*3/uL Normal 0.0-0.8 [facility] Comment on above: Performed By: #### L IPID, PSAS W RFX, URMACRERAT, CMP, CBC #### [facility] [address] [place] [address] [place] Monocytes/100 WBC (Bld) 7.8 % Normal . [facility] Comment on above: Performed By: #### L IPID, PSAS W RFX, URMACRERAT, CMP, CBC #### [address] Neutrophils (Bld) [#/Vol] 3.4 10*3/uL Normal 1.8-7.7 [facility] Comment on above: Performed By: #### L IPID, PSAS W RFX, URMACRERAT, CMP, CBC #### [facility] [address] Neutrophils/100 WBC (Bld) 54.0 % Normal . [facility] Comment on above: Performed By: #### L IPID, PSAS W RFX, URMACRERAT, CMP, CBC #### [facility] [address] Platelet mean volume (Bld) [Entitic vol] 9.2 fL Normal 6.6-10.1 [facility] Comment on above: Performed By: #### L IPID, PSAS W RFX, URMACRERAT, CMP, CBC #### [address] Platelets (Bld) [#/Vol] 179 10*3/uL Normal 150-450 [facility] Comment on above: Performed By: #### L IPID, PSAS W RFX, URMACRERAT, CMP, CBC #### [facility] [address] RBC (Bld) [#/Vol] 4.23 10*6/uL Normal 3.90-5.60 [facility] Comment on above: Performed By: #### L IPID, PSAS W RFX, URMACRERAT, CMP, CBC #### [facility] [address] WBC (Bld) [#/Vol] 6.2 10*3/uL Normal 4.1-10.5 [facility] Comment on above: Performed By: #### L IPID, PSAS W RFX, URMACRERAT, CMP, CBC #### [address] Complete Blood Count Auto Di ffon 04-14-2024 Mean Corpuscular HGB Conc 34.4 g/dL Normal 32.5-35.6 [facility] Comment on above: Performed By: #### L IPID, PSAS W RFX, URMACRERAT, CMP, CBC #### [address] NRBC% 0.1 /100{WBC} Normal 0-0.5 [facility] Comment on above: Performed By: #### L IPID, PSAS W RFX, URMACRERAT, CMP, CBC #### [address] Comprehensive Metabolic Pane isra 04-14-2024 Albumin [Mass/Vol] 4.6 g/dL Normal 3.5-5.7 [facility] Comment on above: Order Comment: [email or web address] Performed By: #### L IPID, PSAS W RFX, URMACRERAT, CMP, CBC #### [address] GFR/1.73 sq M.predicted MDRD (S/P/Bld) [Vol rate/Area] 56.685 mL/min/{1.73_m2} Normal [facility] Comment on above: Order Comment: [email or web address] Performed By: #### L IPID, PSAS W RFX, URMACRERAT, CMP, CBC #### [address] Comprehensive Metabolic Pane lOrdered By: Светлана Erazo on 04-14-2024 Albumin/Globulin [Mass ratio] 1.6 {ratio} Normal [facility] Comment on above: Order Comment: [email or web address] Performed By: #### L IPID, PSAS W RFX, URMACRERAT, CMP, CBC #### [address] ALP [Catalytic activity/Vol] 58 U/L Normal 34-104 [facility] Comment on above: Order Comment: [email or web address] Performed By: #### L IPID, PSAS W RFX, URMACRERAT, CMP, CBC #### [address] ALT [Catalytic activity/Vol] 25 U/L Normal 7-52 [facility] Comment on above: Order Comment: [email or web address] Performed By: #### L IPID, PSAS W RFX, URMACRERAT, CMP, CBC #### [facility] [address] Anion gap [Moles/Vol] 12.1 mmol/L Normal 6.0-15.[address] [facility] Comment on above: Order Comment: [email or web address] Performed By: #### L IPID, PSAS W RFX, URMACRERAT, CMP, CBC #### [address] AST [Catalytic activity/Vol] 20 U/L Normal 13-39 [facility] Comment on above: Order Comment: [email or web address] Performed By: #### L IPID, PSAS W RFX, URMACRERAT, CMP, CBC #### [address] Bilirubin [Mass/Vol] 0.6 mg/dL Normal 0.3-1.0 [facility] Comment on above: Order Comment: [email or web address] Performed By: #### L IPID, PSAS W RFX, URMACRERAT, CMP, CBC #### [address] Calcium [Mass/Vol] 9.9 mg/dL Normal 8.6-10.3 [facility] Comment on above: Order Comment: [email or web address] Performed By: #### L IPID, PSAS W RFX, URMACRERAT, CMP, CBC #### [facility] [address] [place] [address] [place] Chloride [Moles/Vol] 102 mmol/L Normal 98-107 [facility] Comment on above: Order Comment: [email or web address] Performed By: #### L IPID, PSAS W RFX, URMACRERAT, CMP, CBC #### [address] [place] [address] [place] CO2 [Moles/Vol] 29.1 mmol/L Normal 21.0-31.[address] [facility] Comment on above: Order Comment: [email or web address] Performed By: #### L IPID, PSAS W RFX, URMACRERAT, CMP, CBC #### [facility] [address] Creatinine [Mass/Vol] 1.36 mg/dL High 0.70-1.30 [facility] Comment on above: Order Comment: [email or web address] Performed By: #### L IPID, PSAS W RFX, URMACRERAT, CMP, CBC #### [facility] [address] Globulin (S) [Mass/Vol] 2.8 g/dL Normal [facility] Comment on above: Order Comment: [email or web address] Performed By: #### L IPID, PSAS W RFX, URMACRERAT, CMP, CBC #### [facility] [address] Glucose [Mass/Vol] 162 mg/dL High 70-100 [facility] Comment on above: Order Comment: [email or web address] Result Comment: [place] om Glucose Reference Range is dependent on time and content of last meal. Glucose of more than 200 mg/dL in a nonstressed, ambulatory subject supports the diagnosis of Diabetes Mellitus. ADA recommended reference range Performed By: #### L IPID, PSAS W RFX, URMACRERAT, CMP, CBC #### [facility] [address] [place] [address] ADA recommended refe rence rangeRandom Glucose Reference Range is dependent on time and content of last meal. Glucose of more than 200 mg/dL in a nonstressed, ambulatory subject supports the diagnosis of Diabetes Mellitus. Potassium [Moles/Vol] 5.2 mmol/L High 3.5-5.1 [facility] Comment on above: Order Comment: [email or web address] [email or web address] Performed By: #### L IPID, PSAS W RFX, URMACRERAT, CMP, CBC #### [facility] [address] [place] [address] [place] Protein [Mass/Vol] 7.4 g/dL Normal 6.4-8.9 [facility] Comment on above: Order Comment: [email or web address] Performed By: #### L IPID, PSAS W RFX, URMACRERAT, CMP, CBC #### [facility] [address] Sodium [Moles/Vol] 138 mmol/L Normal 136-145 [facility] Comment on above: Order Comment: [email or web address] Performed By: #### L IPID, PSAS W RFX, URMACRERAT, CMP, CBC #### [facility] [address] Urea nitrogen [Mass/Vol] 21 mg/dL Normal 7-25 [facility] Comment on above: Order Comment: [email or web address] Performed By: #### L IPID, PSAS W RFX, URMACRERAT, CMP, CBC #### [facility] [address] Creatinine [Mass/volume] in UrineOrdered By: Светлана Erazo on 04-14-2024 Creatinine (U) [Mass/Vol] 87.00 mg/dL [facility] Comment on above: No reference range e stablished Leukocytes [#/volume] correc dariana for nucleated erythrocytes in Blood by Automated counOrdered By: Светлана Erazo on 04-14-2024 WBC corrected for nucl RBC Auto (Bld) [#/Vol] 6.2 10*3/uL 4.1-10.5 [facility] Lipid PanelOrdered By: Светлана Erazo on 04-14-2024 Cholesterol [Mass/Vol] 194 mg/dL Normal 140-[address] [facility] Comment on above: Order Comment: [email or web address] Result Comment: Chol less than 200 mg/dl low risk Chol 201-239 mg/dl borderline risk Chol 240 mg/dl and greater high risk Performed By: #### L IPID, PSAS W RFX, URMACRERAT, CMP, CBC #### [facility] [address] [place] [id number] [place] Chol less than 200 m g/dl low riskChol 201-239 mg/dl borderline riskChol 240 mg/dl and greater high risk Cholesterol in HDL [Mass/Vol] 30 mg/dL Normal 23-92 [facility] Comment on above: Order Comment: OCTAVIANO MEDRANOW Result Comment: HDL CHOL ATP-III CLASSIFICATION Cardiovascular Risk HDL > or equal to 60 mg/dL LOW HDL < 40 mg/dL HIGH Performed By: #### L IPID, PSAS W RFX, URMACRERAT, CMP, CBC #### [facility] [address] HDL CHOL ATP-III CLA SSIFICATION Cardiovascular RiskHDL > or equal to 60 mg/dL LOWHDL < 40 mg/dL HIGH Cholesterol.total/Lisbeth sterol in HDL [Mass ratio] 6.5 {ratio} Normal <5.0 [facility] Comment on above: Order Comment: OCTAVIANO ADAMS Result Comment: PERF ORMED BY: [place] [address] PATHOLOGIST HEATING AND VENTILATING TENDER JEAN-PIERRE ALFARO M.D. Performed By: #### L IPID, PSAS W RFX, URMACRERAT, CMP, CBC #### [facility] [address] Lipid Panelon 04-14-2024 LDL Cholesterol,Calculated 134 mg/dL High 0-100 [facility] Comment on above: Order Comment: OCTAVIANO ADAMS Result Comment: LDL ATP III CLASSIFICATION LDL less than 100 mg/dL Optimal LDL 100-129 mg/dL Near or above optimal LDL 130-159 mg/dL Borderline high LDL 160-189 mg/dL High LDL greater than 189 mg/dL Very high Performed By: #### L IPID, PSAS W RFX, URMACRERAT, CMP, CBC #### [facility] [address] [id number] [place] Triglyceride w/Reflex 151 mg/dL High 0-149 [facility] Comment on above: Order Comment: OCTAVIANO MEDRANOW Result Comment: TRIG ATP III CLASSIFICATION TRIG less than 150 mg/dL Normal TRIG 150-199 mg/dL Borderline high TRIG 200-500 mg/dL High TRIG greater than 500 mg/dL Very high Standard traceable to the Center for Disease Conrtrol and Prevention (CDC) test method. Performed By: #### L IPID, PSAS W RFX, URMACRERAT, CMP, CBC #### [facility] [address] VLDL CHOLESTEROL 30 mg/dL Normal [facility] Comment on above: Order Comment: OCTAVIANO PARRAJKW Performed By: #### L IPID, PSAS W RFX, URMACRERAT, CMP, CBC #### [facility] [address] MCHC Auto (RBC) [Mass/Vol]Or dered By: Светлана Erazo on 04-14-2024 MCHC (RBC) [Mass/Vol] 34.4 g/dL 32.5-35.6 [facility] MicroAlb Creat Ratio,UOrdere d By: Светлана Erazo on 04-14-2024 Albumin DL <= 20 mg/L (U) [Mass/Vol] 2.9 mg/dL High 0.0-1.8 [facility] Comment on above: Performed By: #### L IPID, PSAS W RFX, URMACRERAT, CMP, CBC #### [facility] [address] MicroAlb Creat Ratio,Uon Creatinine, Urine (Random) 87.00 mg/dL Normal [facility] Comment on above: Result Comment: No r eference range established Performed By: #### L IPID, PSAS W RFX, URMACRERAT, CMP, CBC #### [facility] [address] Microalbumin/Creatinine Ratio 33.3 mg/g High 0.0-30.0 [facility] Comment on above: Result Comment: 30-3 00 mg/g indicates an increased risk for diabetic nephropathy. Greater than 300 mg/g is consistent with clinical nephropathy. (Am. J. Kidney Disease 1995, 25:107) PERFORMED BY: [address] [place] [address] PATHOLOGIST HEATING AND VENTILATING TENDER JEAN-PIERRE ALFARO M.D. Performed By: #### L IPID, PSAS W RFX, URMACRERAT, CMP, CBC #### [facility] [address] [place] [address] [facility] No Panel InformationOrdered By: Светлана Erazo on 04-14-2024 Estimated GFR (CKD-EPI) 56.685 mL/Min [facility] Creatinine Clearance (Chem N/A [facility] Nucleated erythrocytes [Pres ence] in Blood by Automated countOrdered By: Светлана Erazo on 04-14-2024 Nucleated RBC Auto Ql (Bld) 0.1 /100{WBC} 0-0.5 [facility] PSA Screen (Yearly) w/Reflex on 04-14-2024 PSA Screen (Yearly) w/Reflex 2.760 ng/mL Normal 0.000-4.000 [facility] Comment on above: Order Comment: Is pa tient <50 yrs? Medicare does not pay <50.: N What is the date of the last PSA Screen?: NA Is Medicare the insurance?: Y Did you verify eligibility (Dx Time) check TestViewGp: YES TO ALL Result Comment: Garth mcgee tumor marker results determined by assays using different manufacturers or methods may not be comparable. [facility] poly operator and method: ELLIS UNICEL DXI, CHEMILUMINESCENT IMMUNOASSAY. PERFORMED BY: [address] [place] [address] PATHOLOGIST HEATING AND VENTILATING TENDER JEAN-PIERRE ALFARO M.D. Performed By: #### L IPID, PSAS W RFX, URMACRERAT, CMP, CBC #### [facility] [address] [place] [address] [facility] Prostate specific Ag [Mass/v olume] in Serum or PlasmaOrdered By: Светлана Erazo on 04-14-2024 Prostate specific Ag [Mass/Vol] 2.760 ng/mL 0.000-4.000 [facility] Comment on above: Serial tumor marker results determined by assays using different manufacturers or methods may not be comparable.[facility] poly operator and method:Banister WorksEL DXI, CHEMILUMINESCENT IMMUNOASSAY. Triglyceride [Mass/volume] i n Serum or PlasmaOrdered By: Светлана Erazo on 04-14-2024 Triglyceride [Mass/Vol] 151 mg/dL High 0-[address] [facility] Comment on above: TRIG ATP III CLASSIF ICATIONTRIG less than 150 mg/dL NormalTRIG 150-199 mg/dL Borderline highTRIG 200-500 mg/dL High TRIG greater than 500 mg/dL Very highStandard traceable to the Center for Disease Conrtrol and Prevention (CDC) test method. Urine microalbumin/creatinin e mass ratioOrdered By: Светлана Erazo on 04-14-2024 Albumin/Creatinine DL <= 20 mg/L (U) [Mass ratio] 33.3 mg/g High 0.0-30.0 [facility] Comment on above: 30-300 mg/g indicate s an increased risk for diabetic nephropathy. Greater than 300 mg/g is consistent with clinical nephropathy. (Am. J. Kidney Disease 1995, 25:107) Ambulatory Visit Summaryon 0 02-04-2024 Ambulatory Visit Summary Ambulatory Visit Summary KRISTANGRETEL Turcios Fausto :1955 Visit Date:02/04/2024 Ambulatory Visit Instructions Your Diagnosis Prostate cancer BPH with obstruction/lower urinary tract symptoms Your Care Team Attending Physician - SCOTTY VO, Devendra Romero Primary Care Physician - СВЕТЛАНА ERAZO DO This Is Your Medications List Contact prescribing physician if questions or concerns aspirin (aspirin 81 mg Oral EC Tab) doxycycline (doxycycline hyclate 100 mg Cap) insulin glargine (Basaglar KwikPen) lisinopril (lisinopril 10 mg Tab) metformin (metformin 500 mg ER Tab) repaglinide (repaglinide 1 mg Tab) tamsulosin (Flomax 0.4 mg Cap) Procedures Performed MRI-US fusion guided transrectal biopsy of prostate (01/26/2024), Urodynamics (12/30/2023), Cystoscopy (07/01/2023), Cystoscopy, Procedure on knee. Discharge Vitals Heart Rate (Peripheral) 70 Respiratory Rate 16 Blood Pressure 136/80 Height 178 cm Height 70 in Weight 87 kg Weight 191.4 lb BMI 27.46 What to do next Scheduled Follow-Up Appointments Friday 8:00 AM EST With: Where: [facility] [address] [place] [address]- Friday 8:00 AM EST With: Devendra MINER MD Where: [facility] [address] [place] [address]- You Need to Schedule the Following Appointments Follow Up with Devendra MINER MD, URL When: Where: [facility] [address] [place] [address]- Medications What How Much When Instructions Unchanged aspirin (aspirin 81 mg Oral EC Tab) By Mouth Every day Contact prescribing physician if questions or concerns Unchanged doxycycline (doxycycline hyclate 100 mg Cap) 1 Capsules By Mouth 2 times a day Contact prescribing physician if questions or [...] prescribing physician if questions or concerns Unchanged tamsulosin (Flomax 0.4 mg Cap) 1 Capsules By Mouth Every day Duration: 30 Days Contact prescribing physician if questions or concerns Allergies sulfa drugs (Rash) Sulfur (Rash) statins (Rash) Problems Ongoing - Any problem that you are currently receiving treatment for. Bladder stone BPH with obstruction/lower urinary tract symptoms Gross hematuria History of elevated PSA Hypertension Prostate cancer Type 2 diabetes mellitus Patient Survey You may receive a survey via text or e-mail asking about your office visit. Please share your experience with us by completing your survey. We appreciate your feedback and thank you for choosing us for your care. Education Materials Prostate Cancer The prostate is a small gland that produces fluid that makes up semen (seminal fluid). It is located below the bladder in men, in front of the rectum. Prostate cancer is the abnormal growth of cells in the prostate gland. What are the causes? The exact cause of this condition is not known. What increases the risk? You are more likely to develop this condition if: ? You are 65 years of age or older. ? You have a family history of prostate cancer. ? You have a family history of breast and ovarian cancer. ? You have genes that are passed from parent to child (inherited), such as BRCA1 and BRCA2. ? You have Ramírez syndrome. men and men of descent are diagnosed with prostate cancer at higher rates than other men. The reasons for this are not well understood and are likely due to a combination of genetic and environmental factors. What are the signs or symptoms? Symptoms of this condition include: ? Problems with urination. This may include: ? A weak or interrupted flow of urine. ? Trouble starting or stopping urination. ? Trouble emptying the bladder all the way. ? The need to urinate more often, especially at night. ? Blood in urine or semen. ? Persistent pain or discomfort in the lower back, lower abdomen, or hips. ? Trouble getting an erection. ? Weakness or numbness in the legs or feet. How is this diagnosed? This condition can be diagnosed with: ? A digital rectal exam. For this exam, a health care provider inserts a gloved finger into the rectum to feel the prostate gland. ? A blood test called a prostate-specific antigen (PSA) test. ? A procedure in which a sample of tissue is taken from the prostate and checked under a microscope (prostate (more content not included)... Normal [facility] Urology Office/Clinic Noteon 02-04-2024 Urology Office/Clinic Note Urology Office/Clinic Note Chief Complaint MRI fusion bx HPI Staff PO MRI fusion bx done 01/26/24, here to review path report. Last seen IO 11/05/23. Dx: bladder stone, BPH with obstruction/LUTS, hx of elevated PSA. *Tamsulosin 0.4mg qd PSA 11/05/23 - 4.5 Prostate MRI done 12/25/23 [facility]. S/p Urodynamics 12/30/23. Dysuria: denies pain or burning Incomplete bladder emptying: denies Hematuria: denies visible blood Frequency: denies Urgency: denies Nocturia: denies Stream: denies hesitancy, denies weak stream Leaking: denies Post void dripping: denies Wearing pads/ Depends: denies Urge incontinence: denies Stress incontinence: denies Incontinence without Sensory Awareness: denies Abdominal pain: denies Flank pain: denies Sexual complaints: denies History of Present Illness Tests reviewed: reviewed op note, path I have reviewed the previous health record information and history for this patient from Dr. Miner. I have reviewed and verified the staff HPI to be accurate for this encounter. Review of Systems PHQ Score Initial [...] HPI. Physical Exam Vitals & Measurements HR: 70(Peripheral) RR: 16 BP: 136/80 HT: 70 in HT: 178 cm WT: 87 kg WT: 191.4 lb BMI: 27.46 General Appearance: alert, no distress, well nourished, well developed male. Assessment/Plan 1. Prostate cancer (C61: Malignant neoplasm of prostate) PSA: 02/09/16 - 4.19 10/09/16 - 2.16 07/18/17 - 1.68 02/11/19 - 1.72 06/25/21 - 2.61 MRI of prostate 12/25/23 - PI-RADS 5 lesion involving the anterior aspect of the R peripheral zone at the level o f the mid gland measuring 15 x 9 mm. Prostate volume 80 cc. S/p MRI fusion TRUS/bx 01/26/24 - G7 (4+3) noted in 1/4 cores (CNB/CHAD), 10% of submitted tissue involved, GG3. The pathology report, which shows the presence of prostate cancer, was disclosed to the patient in detail today. Educated pt on [place] scoring system. I discussed active surveillance protocol with the pt given mid-grade pathology with low volume and favorable PSA. Explained that we do not want to treat him unnecessarily. Sionex prostate cancer booklet was provided. The pt agrees to start active surveillance. Follow up 6 mos PSA, SAMANTHA or sooner if needed. Pt understands and agrees with plan. -Start active surveillance. 2. BPH with obstruction/lower urinary tract symptoms (N40.1: Benign prostatic hyperplasia with lower urinary tract symptoms) No sample provided for UA today. Taking Flomax 0.4 mg qd. Follow-up With When Contact Information SCOTTY VO, Devendra Romero, URL [facility] [address], [place] [address]- Additional Instructions: 6 mos PSA, SAMANTHA Patient Education Prostate Cancer I, Debbie Mario, personally scribed for Dr. Miner on 02/04/2024 16:00:54. . Documentation recorded by the scribe, Debbie Mario, accurately reflects the services(s) I performed and decisions made by me. Authenticated by Dr. Miner on 02/04/2024 16:02:20. Problem List/Past Medical History Ongoing Bladder stone BPH with obstruction/lower urinary tract symptoms Gross hematuria History of elevated PSA Hypertension Prostate cancer Type 2 diabetes mellitus Historical No qualifying data Procedure/Surgical History MRI-US fusion guided transrectal biopsy of prostate (01/26/2024), Urodynamics (12/30/2023), Cystoscopy (07/01/2023), Cystoscopy, Procedure on knee. Medications aspirin 81 mg Oral EC Tab, Oral, Daily Basaglar KwikPen, SubCutaneous, Daily doxycycline hyclate 100 mg Cap, 100 mg= 1 cap(s), Oral, BID Flomax 0.4 mg Cap, 0.4 mg= 1 cap(s), Oral, Daily, 11 refills lisinopril 10 mg Tab, Oral, Daily metformin 500 mg ER Tab, Oral, Daily repaglinide 1 mg Tab, Oral, TIDAC Allergies sulfa drugs (Rash) Sulfur (Rash) statins (Rash) Social History Tobacco Never (less than 100 in lifetime) Tobacco Use:. Never Smokeless Tobacco Use:., 02/04/2024 Family History Diabetes: Mother and Father. Heart disease: Mother. Immunizations Vaccine Date Status influenza virus vaccine, inactivated 04/11/2023 Recorded pneumococcal 20-valent conjugate vaccine 03/21/2023 Recorded diphtheria/pertussis, acel/tetanus adult 12/17/2022 Recorded SARS-CoV-2 (COVID-19) [id number] 06/02/2022 Recorded zoster vaccine, inactivated 04/19/2022 Recorded influenza virus vaccine, inactivated 04/08/2022 Recorded zoster vac (more content not included)... Normal [facility] Comment on above: Result Comment: Elec tronically Signed By: Devendra MINER MD\.br\Date and Time Signed: 02/04/24 16:02 EDT\.br\Electronically Co-Signed By: Debbie Mario\.br\Date and Time Co-Signed: 02/04/24 16:01 EDT No Panel InformationOrdered By: Devendra Miner on 01-26-2024 Miscellaneous Pathology Test See comment [facility] Comment on above: See report. Scanned copy available in EMR. Pathology Request for Lab Co rpon 01-26-2024 Pathology Request for Lab Renee Normal [facility] Comment on above: Order Comment: PATHO LOGY-PROSTATE BIOPSY Result Comment: See report. Scanned copy available in EMR. PERFORMED BY: [place] [address] PATHOLOGIST HEATING AND VENTILATING TENDER JEAN-PIERRE ALFARO M.D. Performed By: #### P ATH TO [facility] ####[facility] [id number] MR prostate wo/w conon 12-25 MR prostate wo/w con [facility] [place] [address] MRI Report Signed Patient: Gretel Toscano MR#: [id number] : 1955 Acct:[id number] Age/Sex: 68 / M ADM Date: 12/25/23 Loc: MR Room: Type: [facility] Attending Dr: Devendra Miner MD Copies [...] recommended. Impression dictated by: Taco Huston Jr., D.O.12/26/2023 9:38 AM Dictation Location: [place] [address] Transcribed By: [facility] 12/26/23937 Dictated By: Taco Huston Jr, DO 12/26/23 0933 Signed By: 12/26/23 0938 Normal [facility] ISTAT XRay CREon 12-25-2023 ISTAT GFR 46.641 Normal [facility] Comment on above: Result Comment: PERF ORMED BY: [place] [address] PATHOLOGIST HEATING AND VENTILATING TENDER JEAN-PIERRE ALFARO M.D. Performed By: #### I SCRE #### [address] No Panel InformationOrdered By: Devendra Miner on 12-25-2023 Bedside Estimated GFR (eGFR) 46.641 [facility] Whole blood creatinine measu rementOrdered By: Devendra Miner on 12-25-2023 Creatinine [Mass/Vol] 1.6 mg/dL High 0.6-1.3 [facility] Comment on above: ER/ESD physician is notified/shown all ISTAT results.Critical values may be confirmed by laboratory testing ifdeemed necessary by ER attending doctor. Result Comment: ER/E SD physician is notified/shown all ISTAT results. Critical values may be confirmed by laboratory testing if deemed necessary by ER attending doctor. Performed By: #### I SCRE #### [facility] [address] [id number] [facility] HbA1c HPLC (Bld) [Mass fract ion]on 12-22-2023 HbA1c (Bld) [Mass fraction] 6.8 % [facility] Insurance Correspondenceon 0 11-28-2023 Insurance Correspondence [id number]# 1.00TIFF Normal [facility] PSA Totalon 11-06-2023 Prostate specific Ag [Mass/Vol] 4.5 ng/mL High 0.1-3.5 [facility] Comment on above: Result Comment: The concentration of PSA determined by different manufacturers can vary due to differences in assay methods and reagent specificity. Values obtained from different assay methods cannot be used interchangeably. The methodology used for this result was chemiluminescence using [employer]'s Access Hybritech PSA reagent. Performed By: #### 1 [id number] ####[facility] [address] [place] [address] Ambulatory Visit Summaryon 0 11-05-2023 Ambulatory Visit Summary GRETEL TOSCANO :1955 Visit Date:11/05/2023 Ambulatory Visit Instructions Your Diagnosis Bladder stone BPH with obstruction/lower urinary tract symptoms History of elevated PSA Your Care Team Attending Physician - SCOTTY VO, Devendra Romero Primary Care Physician - СВЕТЛАНА ERAZO DO [...] Scott When: Where: [facility] [address] [place] [address]- Medications What How Much When Instructions Unchanged [...] bones (pelvis (more content not included)... Normal [facility] Patient Educationon 11-05-19 Patient Education Urology [...] these instructions at home: Medicines ? Take ksjo-rxk-drcznnq and prescription medicines only as told by your health care provider. ? Ask your health care provider if the medicine prescribed to you: ? Requires you to avoid driving or using heavy machinery. ? Can cause constipation. You may need to take these actions to prevent or treat constipation: ? Take ypoy-gro-yzmuhud or prescription medicines. ? Eat foods that [...] (UCF): www.urologyhealth.org (more content not included)... Normal [facility] Urology Office/Clinic Noteon 11-05-2023 Urology Office/Clinic Note [...] [facility] Elevated PSA level likely from prostatitis and exacerbated from incomplete emptying. [1] -PSA will be drawn IO today. Follow-up With When Contact Information SCOTTY VO, Devendra Romero, VAL [facility] [address], [place] [address]- Additional Instructions: f/u pending uros results, with PVR Patient Education Bladder Stone Debbie Estrella, personally scribed for Dr. Miner on 11/05/2023 [...] diphtheria/pertussis, acel/tetanus adult 12/17/2022 Recorded SARS-CoV-2 (COVID-19) [id number] 06/02/2022 Recorded zoster vaccine, inactivated 04/19/2022 Recorded influenza virus vac (more content not included)... [facility] Comment on above: Result Comment: Elec tronically Signed By: Devendra MINER MD\.br\Date and Time Signed: 11/05/23 16:26 EDT\.br\Electronically Co-Signed By: Debbie Mario\.br\Date and Time Co-Signed: 11/05/23 16:21 EDT\.br\Electronically Co-Signed By: Debbie Mario\.br\Date and Time Co-Signed: 11/05/23 16:25 EDT Pathology Noteon 10-22-2023 Pathology Note [id number]#1 .00TIFF [facility] Operative Reporton Operative Report [id number]#1 .00TIFF [facility] Capillary blood glucose vida urement by glucometer (mass/volume)Ordered By: Devendra Miner on 10-16-2023 Glucose [Mass/Vol] 147 mg/dL [facility] Comment on above: Random Glucose Refer ence Range is dependent on time and content of last meal. Glucose of more than 200 mg/dL in a nonstressed, ambulatory subject supports the diagnosis of Diabetes Mellitus. Result Comment: [place] Glucose Reference Range is dependent on time and content of last meal. Glucose of more than 200 mg/dL in a nonstressed, ambulatory subject supports the diagnosis of Diabetes Mellitus. Performed By: #### G LULS #### Point of Care testing , ECG 12 lead ECGon 10-16-2023 ECG 12 lead ECG [facility] [place] [address] [place] [address] Electrocardiograph Report Signed Patient: Gretel Toscano MR#: [id number] : 1955 Acct:[id number] Age/Sex: 68 / M ADM Date: 10/16/23 Loc: [place] Room: Type: [facility] Attending Dr: Devendra Miner MD Ordering Provider: Charbel Kinglsey MD Date of Service: 10/16/23 ECG/ECG 12 [...] hypertrophy Abnormal ECG Confirmed by Awais Longoria ([id number]) on 10/16/2023 3:46:50 PM Referred By: Electronically Signed By:Awais Longoria Transcribed By: MUS Signed By Awais Longoria MD 10/16/23 1546 Normal [facility] Glucose Poct Glucometerson 0 10-16-2023 Commemt1 Glu2: Cleaned Meter Normal [facility] Comment on above: Performed By: #### G LULS #### Point of Care testing , Commemt2 WILL NOTIFY DR/VALENTIN Normal [facility] Comment on above: Result Comment: PERF ORMED BY: [place] [address] PATHOLOGIST HEATING AND VENTILATING TENDER JEAN-PIERRE ALFARO M.D. Performed By: #### G LULS #### Point of Care testing , Isra 10-16-2023 L Specimen: [id number] Received: 04/ Status: SOUT Req Num: [id number] Spec Type: Surgical Subm Dr: Devendra Miner MD Tissues: A Urinary Calculus (BLADDER STONES) Procedures: Level 1 Gross Age/ Patient Sex Location Account Attending Physician Gretel Toscano 68/M [place] [id number] Devendra Miner MD SPEC NUM: [id number] RECD: 10/16/23 STATUS: HEATHER HARDEN NUM: [id number] KARLIE: 10/16/23- SUBM DR: Devendra Miner MD ENTERED: 10/16/[address] [facility] [address]: SPEC TYPE: Surgical DEPT: S ENTERED BY: [id number] RECV BY: [id number] ORDERED: Level 1 Gross ORDERED: Level 1 Gross Pathological Diagnosis Urinary bladder stones, evacuation and retrieval: -Multiple duvall-yellow calculi of the urinary bladder. Pending chemical analysis to follow. Gross only examination Gross Description Fresh, labeled bladder stones are multiple pieces of duvall-yellow calcified tissue measuring 4.4 x 4.4 x 1.5 cm in aggregate. Submitted for gross identification only. RG/JUSTIN Clinical history: Bladder stones CPT Codes 18251 -------- -------- Specimen: [id number] Received: 10/16/23 Status: HEATHER Harden Num: [id number] Spec Type: Surgical Subm Dr: Devendra Miner MD Tissues: A Urinary Calculus (BLADDER STONES) Procedures: Level 1 Gross -------- Patient: NicholeMatthewAbrahamGretel turcios Fausto [id number] (Continued) -------- Signed (signature on file) Tigre-Juaquin Flores MD 10/21/23 1437 Normal [facility] No Panel InformationOrdered By: Devendra Miner on 10-16-2023 Bedside Glucose #2 Comment Will notify /rn [facility] Bedside Glucose Comment Glu2: cleaned meter [facility] Consent for Procedure/Surger jann 09-19-2023 Consent for Procedure/Surgery [id number] .00TIFF [facility] HbA1c HPLC (Bld) [Mass fract ion]on 09-18-2023 HbA1c (Bld) [Mass fraction] 7.2 % [facility] Lab Reportson 09-18-2023 Lab Reports [id number]#1 .00TIFF Normal [facility] Lab Reports [id number]#1 .00TIFF Normal [facility] Lab Reports [id number]#1 .00TIFF [facility] ECG 12-Leadon 08-15-2023 ECG 12-Lead [id number]#1 .00TIFF Normal [facility] ECG 12-Lead [id number] .00TIFF Normal [facility] Lab Reportson 08-15-2023 Lab Reports [id number]#1 .00TIFF Normal [facility] Lab Reports [id number] .00TIFF Normal [facility] Consent for Procedure/Surger yon 08-05-2023 Consent for Procedure/Surgery [id number]#1 .00TIFF Normal [facility] A1C HEMOGLOBINon 06-02-2023 HbA1c (Bld) [Mass fraction] 7.2 % [facility] Other HbA1c (Bld) [Mass fraction]o n 06-02-2023 A1C HEMOGLOBIN [facility] [employer] Other Potassium [Moles/volume] in Serum or PlasmaOrdered By: Светлана Erazo on 02-05-2023 Potassium [Moles/Vol] 4.7 mmol/L 3.5-5.1 [facility] Alanine aminotransferase [En zymatic activity/volume] in Serum or PlasmaOrdered By: Светлана Mast on 02-03-2023 ALT [Catalytic activity/Vol] 51 U/L 7-52 [facility] Albumin [Mass/volume] in Ser um or Plasma by Bromocresol green (BCG) dye binding methoOrdered By: Светлана Mast on 02-03-2023 Albumin BCG dye [Mass/Vol] 4.5 g/dL 3.5-5.7 [facility] Alkaline phosphatase [Enzyma tic activity/volume] in Serum or PlasmaOrdered By: Светлана Mast on 02-03-2023 ALP [Catalytic activity/Vol] 52 U/L 34-104 [facility] Aspartate aminotransferase [ Enzymatic activity/volume] in Serum or PlasmaOrdered By: Светлана Mast on 02-03-2023 AST [Catalytic activity/Vol] 31 U/L 13-39 [facility] Basophils Auto (Bld) [#/Vol] Ordered By: Светлана Mast on 02-03-2023 Basophils (Bld) [#/Vol] 0.1 10*3/uL 0.0-0.2 [facility] Basophils/100 WBC Auto (Bld) Ordered By: Светлана Mast on 02-03-2023 Basophils/100 WBC (Bld) 1.0 % . [facility] Bilirubin Test strip Ql (U)O rdered By: Светлана Mast on 02-03-2023 Bilirubin Ql (U) Negative Negative [facility] Bilirubin.total [Mass/volume ] in Serum or PlasmaOrdered By: Светлана Mast on 02-03-2023 Bilirubin [Mass/Vol] 0.5 mg/dL 0.3-1.0 [facility] Calcium [Mass/volume] in Ser um or PlasmaOrdered By: Светлана Mast on 02-03-2023 Calcium [Mass/Vol] 9.6 mg/dL 8.6-10.3 [facility] Carbon dioxide, total [Moles /volume] in Serum or PlasmaOrdered By: Светлана Mast on 02-03-2023 CO2 [Moles/Vol] 26.4 mmol/L 21.0-31.[address] [facility] Chloride [Moles/volume] in S mani or PlasmaOrdered By: Светлана Mast on 02-03-2023 Chloride [Moles/Vol] 105 mmol/L 98-107 [facility] Cholesterol [Mass/volume] in Serum or PlasmaOrdered By: Светлана Mast on 02-03-2023 Cholesterol [Mass/Vol] 202 mg/dL 140-[address] [facility] Comment on above: Chol less than 200 m g/dl low riskChol 201-239 mg/dl borderline riskChol 240 mg/dl and greater high risk Cholesterol in LDL Calc [Mas s/Vol]Ordered By: Светлана Mast on 02-03-2023 Cholesterol in LDL [Mass/Vol] 129 mg/dL 0-100 [facility] Comment on above: LDL ATP III CLASSIFI CATIONLDL less than 100 mg/dL OptimalLDL 100-129 mg/dL Near or above optimalLDL 130-159 mg/dL Borderline highLDL 160-189 mg/dL HighLDL greater than 189 mg/dL Very high Cholesterol in VLDL Calc [Ma ss/Vol]Ordered By: Светлана Mast on 02-03-2023 Cholesterol in VLDL [Mass/Vol] 44 mg/dL [facility] Color Auto (U)Ordered By: Er ic Mast on 02-03-2023 Color (U) Yellow Yellow [facility] Creatinine [Mass/volume] in Serum or PlasmaOrdered By: Светлана Mast on 02-03-2023 Creatinine [Mass/Vol] 1.31 mg/dL 0.70-1.30 [facility] Creatinine [Mass/volume] in UrineOrdered By: Светлана Mast on 02-03-2023 Creatinine (U) [Mass/Vol] 100.0 mg/dL 14.0-26.0 [facility] Eosinophils Auto (Bld) [#/Vo l]Ordered By: Светлана Mast on 02-03-2023 Eosinophils (Bld) [#/Vol] 0.4 10*3/uL 0.0-0.45 [facility] Eosinophils/100 WBC Auto (Bl d)Ordered By: Светлана Mast on 02-03-2023 Eosinophils/100 WBC (Bld) 6.6 % . [facility] Erythrocyte distribution wid th Auto (RBC) [Ratio][facility]: [facility] Erythrocyte distribution width (RBC) [Ratio] 13.3 % 12.0-14.8 [facility] Globulin Calc (S) [Mass/Vol] Or[facility]: [facility] on 02-03-2023 Globulin (S) [Mass/Vol] 2.7 g/dL [facility] Glucose [Mass/volume] in Ser um or PlasmaOrdered By: [facility] on 02-03-2023 Glucose [Mass/Vol] 163 mg/dL 70-100 [facility] Comment on above: ADA recommended refe rence rangeRandom Glucose Reference Range is dependent on time and content of last meal. Glucose of more than 200 mg/dL in a nonstressed, ambulatory subject supports the diagnosis of Diabetes Mellitus. Glucose mean value [Mass/vol ume] in Blood Estimated from glycated hemoglobinOrdered By: Светлана Mast on 08-07-2023 Average glucose Estimated from glycated hemoglobin (Bld) [Mass/Vol] 169 mg/dL [facility] Hematocrit Auto (Bld) [Volum e fraction]Ordered By: Светлана Erazo on 02-03-2023 Hematocrit (Bld) [Volume fraction] 37.7 % 38.8-50.0 [facility] Hemoglobin A1c percentageOrd ered By: Светлана Erazo on 02-03-2023 HbA1c (Bld) [Mass fraction] 7.5 % 4.3-5.6 [facility] Comment on above: Increased risk for d iabetes: 5.7 - 6.4diabetes: >6.4glycemic control for adults with diabetes: <7.0 Hemoglobin [Mass/volume] in BloodOrdered By: Светлана Erazo on 02-03-2023 Hemoglobin (Bld) [Mass/Vol] 12.8 g/dL 13.0-17.0 [facility] Ketones Auto test strip (U) [Mass/Vol]Ordered By: Светлана Erazo on 02-03-2023 Ketones (U) [Mass/Vol] Negative Negative [facility] Leukocytes [#/volume] correc dariana for nucleated erythrocytes in Blood by Automated counOrdered By: Светланаsegundo Erazo on 02-03-2023 WBC corrected for nucl RBC Auto (Bld) [#/Vol] 6.5 10*3/uL 4.1-10.5 [facility] Lymphocytes Auto (Bld) [#/Vo l]Ordered By: Светланаsegundo Erazo on 02-03-2023 Lymphocytes (Bld) [#/Vol] 2.4 10*3/uL 1.00-4.8 [facility] Lymphocytes/100 WBC Auto (Bl d)Ordered By: Светланаsegundo Erazo on 02-03-2023 Lymphocytes/100 WBC (Bld) 36.5 % . [facility] MCH Auto (RBC) [Entitic mass ]Ordered By: Светлана Mast on 02-03-2023 MCH (RBC) [Entitic mass] 30.3 pg 27.5-35.2 [facility] MCHC Auto (RBC) [Mass/Vol]Or dered By: Светлана Mast on 02-03-2023 MCHC (RBC) [Mass/Vol] 34.0 g/dL 32.5-35.6 [facility] MCV Auto (RBC) [Entitic vol] Ordered By: Светлана Mast on 02-03-2023 MCV (RBC) [Entitic vol] 89.0 fL 83.5-[address] [facility] Microalbumin [Mass/volume] i n UrineOrdered By: Светлана Mast on 02-03-2023 Albumin DL <= 20 mg/L (U) [Mass/Vol] 3.5 mg/dL 0.0-1.8 [facility] Monocytes Auto (Bld) [#/Vol] Ordered By: Светлана Mast on 02-03-2023 Monocytes (Bld) [#/Vol] 0.5 10*3/uL 0.0-0.8 [facility] Monocytes/100 WBC Auto (Bld) Ordered By: Светлана Mast on 02-03-2023 Monocytes/100 WBC (Bld) 7.2 % . [facility] Neutrophils Auto (Bld) [#/Vo l]Ordered By: Светлана Mast on 02-03-2023 Neutrophils (Bld) [#/Vol] 3.2 10*3/uL 1.8-7.7 [facility] Neutrophils/100 WBC Auto (Bl d)Ordered By: Светлана Mast on 02-03-2023 Neutrophils/100 WBC (Bld) 48.7 % . [facility] Nitrite Test strip Ql (U)Ord ered By: Светлана Mast on 02-03-2023 Nitrite Ql (U) Negative Negative [facility] No Panel InformationOrdered By: Светлана Mast on 02-03-2023 Estimated GFR (CKD-EPI) 59.660 mL/Min [facility] Creatinine Clearance (Chem N/A [facility] Nucleated erythrocytes [Pres ence] in Blood by Automated countOrdered By: Светлана Mast on 02-03-2023 Nucleated RBC Auto Ql (Bld) 0.1 /100{WBC} 0-0.5 [facility] Platelet mean volume Auto (B ld) [Entitic vol]Ordered By: Светлана Mast on 02-03-2023 Platelet mean volume (Bld) [Entitic vol] 9.3 fL 6.6-10.1 [facility] Platelets Auto (Bld) [#/Vol] Ordered By: Светлана Erazo on 02-03-2023 Platelets (Bld) [#/Vol] 156 10*3/uL 150-450 [facility] Potassium [Moles/volume] in Serum or PlasmaOrdered By: Светлана Erazo on 02-03-2023 Potassium [Moles/Vol] See comment 3.5-5.[address] [facility] Comment on above: Specimen hemolyzed, redraw requested Protein Auto test strip (U) [Mass/Vol]Ordered By: Светлана Erazo on 02-03-2023 Protein (U) [Mass/Vol] Negative Negative [facility] Protein [Mass/volume] in Ser um or PlasmaOrdered By: Светлана Erazo on 02-03-2023 Protein [Mass/Vol] 7.2 g/dL 6.4-8.9 [facility] RBC Auto (Bld) [#/Vol]Ordere d By: Светлана Erazo on 02-03-2023 RBC (Bld) [#/Vol] 4.24 10*6/uL 3.90-5.60 [facility] Serum or plasma albumin/glob ulin mass ratioOrdered By: Светлана Erazo on 02-03-2023 Albumin/Globulin [Mass ratio] 1.7 {ratio} [facility] Serum or plasma anion gap de terminationOrdered By: Светлана Erazo on 02-03-2023 Anion gap [Moles/Vol] TNP [facility] Comment on above: Test not performed Serum or plasma high density lipoprotein (HDL) cholesterol measurementOrdered By: Светлана Erazo on 02-03-2023 Cholesterol in HDL [Mass/Vol] 29 mg/dL 23-92 [facility] Comment on above: HDL CHOL ATP-III CLA SSIFICATION Cardiovascular RiskHDL > or equal to 60 mg/dL LOWHDL < 40 mg/dL HIGH Serum or plasma total choles terol/high density lipoprotein (HDL) cholesterol mass ratOrdered By: Светлана Erazo on 02-03-2023 Cholesterol.total/Lisbeth sterol in HDL [Mass ratio] 7.0 {ratio} <5.0 [facility] Sodium [Moles/volume] in Ser um or PlasmaOrdered By: Светлана Erazo on 02-03-2023 Sodium [Moles/Vol] 138 mmol/L 136-145 [facility] Specific gravity Auto test s trip (U) [Rel density]Ordered By: [facility] on 02-03-2023 Specific gravity (U) [Rel density] 1.018 1.001-1.030 [facility] Triglyceride [Mass/volume] i n Serum or PlasmaOrdered By: [facility] on 02-03-2023 Triglyceride [Mass/Vol] 222 mg/dL 0-[address] [facility] Comment on above: TRIG ATP III CLASSIF ICATIONTRIG less than 150 mg/dL NormalTRIG 150-199 mg/dL Borderline highTRIG 200-500 mg/dL High TRIG greater than 500 mg/dL Very highStandard traceable to the Center for Disease Conrtrol and Prevention (CDC) test method. Urea nitrogen [Mass/volume] in Serum or PlasmaOrdered By: [facility] on 02-03-2023 Urea nitrogen [Mass/Vol] 30 mg/dL 7-25 [facility] Urine clarity by refractomet ry automatedOrdered By: [facility] on 02-03-2023 Clarity Refractometry automated (U) Clear Clear [facility] Urine glucose measurement by automated test strip (mass/volume)Ordered By: [facility] on 02-03-2023 Glucose Auto test strip (U) [Mass/Vol] Normal mg/dL Normal [facility] Urine hemoglobin detection b y automated test stripOrdered By: [facility] on 02-03-2023 Hemoglobin Auto test strip Ql (U) Negative Negative [facility] Urine leukocyte esterase det ection by automated test stripOrdered By: [facility] on 02-03-2023 Leukocyte esterase Auto test strip Ql (U) Negative Negative [facility] Urine microalbumin/creatinin e mass ratioOrdered By: [facility] on 02-03-2023 Albumin/Creatinine DL <= 20 mg/L (U) [Mass ratio] 35.0 mg/g 0.0-30.0 [facility] Comment on above: 30-300 mg/g indicate s an increased risk for diabetic nephropathy. Greater than 300 mg/g is consistent with clinical nephropathy. (Am. J. Kidney Disease 1995, 25:107) Urobilinogen Auto test strip (U) [Mass/Vol]Ordered By: Светлана Mast on 02-03-2023 Urobilinogen (U) [Mass/Vol] Normal mg/dL Normal [facility] WBC Auto (Bld) [#/Vol]Ordere d By: Светлана Mast on 02-03-2023 WBC (Bld) [#/Vol] 6.5 10*3/uL 4.1-10.5 [facility] pH Auto test strip (U)Ordere d By: Светлана Mast on 02-03-2023 pH (U) 5.0 [pH] 5.0-9.0 [facility] Laboratory - Molecular patho logyon 06-27-2022 Noninvasive colorectal cancer DNA and occult blood screening Ted (Stl) [Interp] Positive Abnormal Negative -[facility] Work Phone: Comment on above: [employer] (CLIA #:[id number])[address] [place] [address] DEBBY BARRIOS , Clinical Laboratory Medical DirectorPOSITIVE [...] Caicedo et al, N Engl J Med 2014;370(14):0361-6024.) Cologuard may produce a false negative or false positive result (no colorectal cancer or precancerous polyp present at colonoscopy follow up). A negative Cologuard test result does not guarantee the absence of CRC or advanced adenoma (pre-cancer). The current Cologuard screening interval is every 3 years. ([place] [employer] and U.S. Multi-Society Task Force). Cologuard performance data in a 10,000 patient pivotal study using colonoscopy as the reference method can be accessed at the following location: www.[employer]/results. Additional description of the Cologuard test process, warnings and precautions can be found at www.[employer]. Blood Pressure Cuff Sizeon 1 08-15-2021 Adult depression screening assessment No [employer] Work Phone: Fall risk assessment a) No falls within the last year [employer] Work Phone: Tobacco use status CPHS b) No M [employer] Work Phone: Blood Pressure Cuff Size Adult [employer] Work Phone: Office Visit (Internal Medic ine)on [...] for colorectal cancer Cologuard Screening; Status:Active; Requested for:[id number]; Perform:Cologuard Non [facility]; Due:12Sep2022;Ordered ; For:Screening for [...] mellitus; YADI = N; Verified Transmission to [employer] [address]; Last Updated By: Nakia Buckley; 06/14/2022 9:05:16 AM Continue: OneTouch Delica Plus [id number]; Use 3 times daily as directed Rx [...] mellitus; YADI = N; Verified Transmission to [facility]; Last Updated By: Nakia Buckley; 06/14/2022 9:05:16 AM Patient Discussion/Summary cologuard follow 5--6 months mohamud discussed...declines get cards dr. pablo e(dr majano.. [facility]) same program Provider Impressions dm ok control [...] [Moles/Vol] 13 mmol/L Normal 10 - 20 [facility] Comment on above: Order Comment: PATIE NT FASTING Performed By: #### B MP #### [facility] [address] [place] [address] Calcium [Mass/Vol] 9.9 mg/dL Normal 8.6 - 10.6 [facility] Comment on above: Order Comment: PATIE NT FASTING Performed By: #### B MP #### [place] [address] [place] [address] Chloride [Moles/Vol] 103 mmol/L Normal 98 - 107 [facility] Comment on above: Order Comment: PATIE NT FASTING Performed By: #### B MP #### [facility] [address] [place] [address] Creatinine [Mass/Vol] 1.33 mg/dL High 0.50 - 1.30 [facility] Comment on above: Order Comment: PATIE NT FASTING Performed By: #### B MP #### [facility] [address] [place] [address] GFR/1.73 sq M.predicted among non-blacks MDRD (S/P/Bld) [Vol rate/Area] 59 mL/min/{1.73_m2} Abnormal >90 [facility] Comment on above: Order Comment: PATIE NT FASTING Result Comment: CALC ULATIONS OF ESTIMATED GFR ARE PERFORMED USING THE 2020 CKD-EPI STUDY REFIT EQUATION WITHOUT THE RACE VARIABLE FOR THE IDMS-TRACEABLE CREATININE METHODS. https://jasn.asnjournals.org/content/early//ASN.2020 696142 Performed By: #### B MP #### [facility] [address] [place] [address] Glucose [Mass/Vol] 177 mg/dL High 74 - 99 [facility] Comment on above: Order Comment: PATIE NT FASTING Performed By: #### B MP #### [facility] [address] [place] [address] HCO3 (Bld) [Moles/Vol] 26 mmol/L Normal 21 - 32 [facility] Comment on above: Order Comment: PATIE NT FASTING Performed By: #### B MP #### [facility] [address] [place] [address] Potassium [Moles/Vol] 5.3 mmol/L Normal 3.5 - 5.3 [facility] Comment on above: Order Comment: PATIE NT FASTING Performed By: #### B MP #### [facility] [address] [place] [address] Sodium [Moles/Vol] 137 mmol/L Normal 136 - 145 [facility] Comment on above: Order Comment: PATIE NT FASTING Performed By: #### B MP #### [facility] [address] [place] [address] Urea nitrogen [Mass/Vol] 31 mg/dL High 6 - 23 [facility] Comment on above: Order Comment: PATIE NT FASTING Performed By: #### B MP #### [facility] [address] [place] [address] HEMOGLOBIN A1Con 06-07-2022 Glucose [Mass/Vol] 160 mg/dL Normal [facility] Comment on above: Order Comment: PATIE NT FASTING Performed By: #### H BA1E #### [facility] [address] [place] [address] HbA1c (Bld) [Mass fraction] 7.2 % Abnormal [facility] Comment on above: Order Comment: PATIE NT FASTING Result Comment: Diag nosis of Diabetes-Adults Non-Diabetic: < or = 5.6% Increased risk for developing diabetes: 5.7-6.4% Diagnostic of diabetes: > or = 6.5% . Monitoring of Diabetes Age (y) Therapeutic Goal (%) Adults: >18 <7.0 Pediatrics: 13-18 <7.5 7-12 <8.0 0- 6 7.5-8.5 [place] [employer]. Diabetes Care 33(S1), Jun 2009. Performed By: #### H BA1E #### [facility] [address] [place] [address] Hemoglobin A1Con 06-07-2022 Glucose [Mass/Vol] 160 mg/dL [facility] Work Phone: HbA1c (Bld) [Mass fraction] 7.2 % Abnormal [facility] Work Phone: Comment on above: Diagnosis of Diabete s-Adults Non-Diabetic: < or = 5.6% Increased risk for developing diabetes: 5.7-6.4% Diagnostic of diabetes: > or = 6.5%. Monitoring of Diabetes Age (y) Therapeutic Goal (%) Adults: >18 <7.0 Pediatrics: 13-18 <7.5 7-12 <8.0 0- 6 7.5-8.5 [place] [employer]. Diabetes Care 33(S1), Jun 2009. LIPID PANEL (CORONARY RISK 2 )on 06-07-2022 Cholesterol [Mass/Vol] 196 mg/dL Normal 0 - 199 [facility] Comment on above: Order Comment: PATIE [...] Performed By: #### L IPID #### [facility] [address] [place] [address] Cholesterol in HDL [Mass/Vol] 30.1 mg/dL Abnormal [facility] Comment on above: Order Comment: PATIE NT FASTING Result Comment: . AGE VERY LOW LOW NORMAL HIGH 0-19 Y < 35 < 40 40-45 ---- 20-24 Y ---- < 40 >45 ---- >24 Y ---- < 40 40-60 >60 . Performed By: #### L IPID #### [facility] [address] [place] [address] Cholesterol in LDL [Mass/Vol] 134 mg/dL High 0 - 99 [facility] Comment on above: Order Comment: PATIE NT FASTING Result Comment: . NEAR BORD AGE DESIRABLE OPTIMAL HIGH HIGH VERY HIGH 0-19 Y 0 - 109 --- 110-129 >/= 130 ---- 20-24 Y 0 - 119 --- 120-159 >/= 160 ---- >24 Y 0 - 99 100-129 130-159 160-189 >/=190 . Performed By: #### L IPID #### [facility] [address] [place] [address] Cholesterol in VLDL [Mass/Vol] 32 mg/dL Normal 0 - 40 [facility] Comment on above: Order Comment: PATIE NT FASTING Performed By: #### L IPID #### [facility] [address] [place] [address] Cholesterol.total/Lisbeth sterol in HDL [Mass ratio] 6.5 {ratio} Abnormal [facility] Comment on above: Order Comment: PATIE NT FASTING Result Comment: REF VALUES DESIRABLE < 3.4 HIGH RISK > 5.0 Performed By: #### L IPID #### [facility] [address] [place] [address] Triglyceride [Mass/Vol] 160 mg/dL High 0 - 149 [facility] Comment on above: Order Comment: LYDIAE NT FASTING Result Comment: . AGE DESIRABLE [...] Performed By: #### L IPID #### [facility] [address] [place] [address] Laboratory - Chemistry and C hemistry - challengeon 06-07-2022 Anion gap [Moles/Vol] 13 mmol/L 10 - 20 - [facility] Work Phone: Calcium [Mass/Vol] 9.9 mg/dL 8.6 - 10.6 [facility] Work Phone: Chloride [Moles/Vol] 103 mmol/L 98 - 107 [facility] Work Phone: CO2 [Moles/Vol] 26 mmol/L 21 - 32 -[facility] Work Phone: Creatinine [Mass/Vol] 1.33 mg/dL above high threshold See Below -[facility] Work Phone: Comment on above: Reference Range: 0.5 0 - 1.30 Glucose [Mass/Vol] 177 mg/dL above high threshold 74 - 99 -[facility] Work Phone: Potassium [Moles/Vol] 5.3 mmol/L 3.5 - 5.3 - [facility] Work Phone: Sodium [Moles/Vol] 137 mmol/L 136 - 145 -[facility] Work Phone: Urea nitrogen [Mass/Vol] 31 mg/dL [...] Cholesterol in HDL [Mass/Vol] 30.1 mg/dL Abnormal [facility] Work Phone: Comment on above: . AGE VERY LOW LOW N ORMAL HIGH 0-19 Y < 35 < 40 40-45 ---- 20-24 Y ---- < 40 >45 ---- >24 Y ---- < 40 40-60 >60. Cholesterol in LDL [Mass/Vol] 134 mg/dL above high threshold 0 - 99 [facility] Work Phone: Comment on above: . NEAR BORD AGE PATRICIA RABLE OPTIMAL HIGH HIGH VERY HIGH 0-19 Y 0 - 109 --- 110-129 >/= 130 ---- 20-24 Y 0 - 119 --- 120-159 >/= 160 ---- >24 Y 0 - 99 100-129 130-159 160-189 >/=190. Cholesterol.total/Lisbeth sterol in HDL [Mass ratio] 6.5 {ratio} [facility] Work Phone: Comment on above: REF VALUESDESIRABLE < 3.4HIGH RISK > 5.0 Triglyceride [Mass/Vol] 160 mg/dL above hi gh threshold 0 - 149 [facility] Work Phone: Comment on above: . AGE [...] Lipid Panel 32 mg/dL 0 - 40 [facility] Work Phone: No Panel Informationon 06-07 59 {mL/min/1.73m2} Abnormal >90 [facility] Work Phone: Comment on above: CALCULATIONS OF KHADAR MATED GFR ARE PERFORMED USING THE 2020 CKD-EPI STUDY REFIT EQUATION WITHOUT THE RACE VARIABLE FOR THE IDMS-TRACEABLE CREATININE METHODS.https://jasn.asnjournals.org/content/early// ASN.6785434078 Blood Pressure Cuff Sizeon 0 01-18-2022 Fall risk assessment a) No falls within the last year [facility] Work Phone: Tobacco use status CP b) No M [facility] Work Phone: Blood Pressure Cuff Size [facility] Work Phone: IO Hgb A1Con 01-18-2022 HbA1c (Bld) [Mass fraction] 7.1 % 4.2-6.5% -[facility] Work Phone: Office Visit (Internal Medic ine)on 01-18-2022 Follow-up visit Diagnoses/Problems Assessed Type 2 diabetes mellitus (250.00) (E11.9) HTN (hypertension) (401.9) (I10) Orders HTN (hypertension) Renew: Lisinopril 10 MG Oral Tablet; Take 1 tablet daily Rx By: Jaylon Ulloa; Dispense: 0 Days ; #:90 Tablet; Refill: 3;For: HTN (hypertension); YADI = N; Verified Transmission to [facility]; Last Updated By: [employer]; 01/18/2022 1:36:13 PM Type 2 diabetes mellitus Renew: Basaglar KwikPen 100 UNIT/ML Subcutaneous Solution Pen-injector; INJECT 15 UNIT Daily Rx By: Jaylon Ulloa; Dispense: 90 Days ; #:1 X 5 x 3 ML Pen; Refill: 3;For: Type 2 diabetes mellitus; YADI = N; Verified Transmission to [facility]; Last Updated By: [employer]; 01/18/2022 1:36:13 PM Basic Metabolic Panel; Status:Active; Requested for:[id number]; Perform:Lab Services - Lab To Draw (Blood Test); Due:[id number];Ordered ; For:Type 2 diabetes mellitus; Ordered By:Jaylon Ulloa; Renew: BD Pen Needle Sadaf U/F 32G X 4 MM; uses 1 daily Rx By: Jaylon Ulloa; Dispense: 0 Days ; #:1 X 100 Unit Box; Refill: 3;For: Type 2 diabetes mellitus; YADI = N; Verified Transmission to [facility]; Last Updated By: [employer]; 01/18/2022 1:36:15 PM Hemoglobin A1C; Status:Active; Requested for:[id number]; Perform:Lab Services - Lab To Draw (Blood Test); Due:[id number];Ordered ; For:Type 2 diabetes mellitus; Ordered By:Jaylon Ulloa; Renew: metFORMIN HCl ER 500 MG Oral Tablet Extended Release 24 Hour; TAKE 1 TABLET 3 times daily Rx By: Jaylon Ullao; Dispense: 90 Days ; #:270 Tablet; Refill: 3;For: Type 2 diabetes mellitus; YADI = N; Verified Transmission to [facility]; Last Updated By: Allison Coronado; 01/18/2022 1:36:16 PM IO Hgb A1C; Status:Resulted - Requires Verification; Done: [id number] 11:32AM Performed:In Office; Due:18Apr2022; Last Updated By:Nakia Buckley; 01/18/2022 11:32:48 AM;Ordered; For:Type 2 diabetes mellitus; Ordered By:Jaylon Ulloa; Renew: OneTouch Delica Plus [id number]; Use 3 times daily as directed Rx By: Jaylon Ulloa; Dispense: 0 Days ; #:3 X 100 Unit Box; Refill: 3;For: Type 2 diabetes mellitus; YADI = N; Verified Transmission to [facility]; Msg to Pharmacy: e11.9 on insulin; Last Updated By: Allison Coronado; 01/18/2022 1:36:12 PM Lipid Panel; Status:Active; Requested for:[id number]; Perform:Lab Services - Lab To Draw (Blood [...] of Present Illnesscards appt. 2021 dr majano ([facility]) r. arm issue resolved hgm fbs 140--150s..seems [...] PM Tradj[employer] TABS Recorded By: Jaylon Ulloa; (more content not included)... Normal [employer] Activated partial thrombopla stin time (aPTT) in platelet poor plasma by coagulation aOrdered By: Darien Florentino on 12-07-2021 aPTT Coag (PPP) [Time] 33.3 s 25.1-36.[address] [facility] Albumin [Mass/volume] in Ser um or PlasmaOrdered By: Darien Florentino on 12-07-2021 Albumin [Mass/Vol] 4.4 g/dL 3.2-5.5 [facility] Basophils Auto (Bld) [#/Vol] Ordered By: Darien Florentino on 12-07-2021 Basophils (Bld) [#/Vol] 0.1 10*3/uL 0.0-0.2 [facility] Basophils/100 WBC Auto (Bld) Ordered By: Darien Florentino on 12-07-2021 Basophils/100 WBC (Bld) 0.8 % [facility] Blood hemoglobin measurement (mass/volume)Ordered By: Darien Florentino on 12-07-2021 Hemoglobin (Bld) [Mass/Vol] 13.5 g/dL 13.0-17.0 [facility] Blood leukocytes automated c ount (number/volume)Ordered By: Darien Florentino on 12-07-2021 WBC (Bld) [#/Vol] 6.9 10*3/uL 4.5-11.0 [facility] Creatinine and Glomerular fi ltration rate.predicted panel (S/P/Bld)Ordered By: Darien Florentino on 12-07-2021 Creatinine [Mass/Vol] 1.27 mg/dL 0.64-1.27 [facility] Eosinophils Auto (Bld) [#/Vo l]Ordered By: Darien Florentino on 12-07-2021 Eosinophils (Bld) [#/Vol] 0.5 10*3/uL 0.0-0.45 [facility] Eosinophils/100 WBC Auto (Bl d)Ordered By: Darien Florentino on 12-07-2021 Eosinophils/100 WBC (Bld) 6.6 % [facility] Erythrocyte distribution wid th Auto (RBC) [Ratio]Ordered By: Darien Florentino on 12-07-2021 Erythrocyte distribution width (RBC) [Ratio] 13.1 % 12.0-14.8 [facility] Estimated glomerular filtrat ion rate (GFR) non- AmericanOrdered By: Darien Florentino on 12-07-2021 GFR/1.73 sq M.predicted among non-blacks MDRD (S/P/Bld) [Vol rate/Area] 57 mL/Min [facility] Globulin Calc (S) [Mass/Vol] Ordered By: Darien Florentino on 12-07-2021 Globulin (S) [Mass/Vol] 3.1 g/dL [facility] Hematocrit Auto (Bld) [Volum e fraction]Ordered By: Darien Florentino on 12-07-2021 Hematocrit (Bld) [Volume fraction] 40.2 % 38.8-50.0 [facility] Laboratory - CoagulationOrde red By: Darien Florentino on 12-07-2021 PT Coag (PPP) [Time] 12.5 s 9.0-12.9 [facility] Laboratory - Hematology and Cell countsOrdered By: Darien Florentino on 12-07-2021 Nucleated RBC/100 WBC (Bld) [Ratio] 0.1 % 0-0.5 [facility] Lymphocytes Auto (Bld) [#/Vo l]Ordered By: Darien Florentino on 12-07-2021 Lymphocytes (Bld) [#/Vol] 2.6 10*3/uL 1.00-4.8 [facility] Lymphocytes/100 WBC Auto (Bl d)Ordered By: Darien Florentino on 12-07-2021 Lymphocytes/100 WBC (Bld) 36.8 % [facility] MCH Auto (RBC) [Entitic mass ]Ordered By: Darien Florentino on 12-07-2021 MCH (RBC) [Entitic mass] 30.2 pg 27.5-35.2 [facility] MCHC Auto (RBC) [Mass/Vol]Or dered By: Darien Florentino on 12-07-2021 MCHC (RBC) [Mass/Vol] 33.6 g/dL 32.5-35.6 [facility] MCV Auto (RBC) [Entitic vol] Ordered By: Darien Florentino on 12-07-2021 MCV (RBC) [Entitic vol] 89.9 fL 83.5-[address] [facility] Monocytes Auto (Bld) [#/Vol] Ordered By: Darien Florentino on 12-07-2021 Monocytes (Bld) [#/Vol] 0.5 10*3/uL 0.0-0.8 [facility] Monocytes/100 WBC Auto (Bld) Ordered By: Darien Florentino on 12-07-2021 Monocytes/100 WBC (Bld) 6.8 % [facility] Neutrophils Auto (Bld) [#/Vo l]Ordered By: Darien Florentino on 12-07-2021 Neutrophils (Bld) [#/Vol] 3.4 10*3/uL 1.8-7.7 [facility] Neutrophils/100 WBC Auto (Bl d)Ordered By: Darien Florentino on 12-07-2021 Neutrophils/100 WBC (Bld) 49.0 % [facility] No Panel InformationOrdered By: Darien Florentino on 12-07-2021 Estimated GFR () > 60 mL/Min [facility] Comment on above: GFR estimated refere nce range: According to KDOQI guidelines, <60 ml/min/1.73m2 is sufficient to diagnose a patient with chronic kidney disease. Pharmacy Creatinine Clearance (Chem 65.08 [facility] Platelet mean volume Auto (B ld) [Entitic vol]Ordered By: Darien Florentino on 12-07-2021 Platelet mean volume (Bld) [Entitic vol] 9.0 fL 6.6-10.1 [facility] Platelet poor plasma interna tional normalized ratio (INR) by coagulation assay (relatOrdered By: Darien Florentino on 12-07-2021 INR Coag (PPP) [Relative time] 1.1 {INR} [facility] Comment on above: INR Therapeutic Rang [...] 12-07-2021 Platelets (Bld) [#/Vol] 189 10*3/uL 150-450 [facility] Protein [Mass/volume] in Ser um or PlasmaOrdered By: Darien Florentino on 12-07-2021 Protein [Mass/Vol] 7.5 g/dL 6.1-7.9 [facility] RBC Auto (Bld) [#/Vol]Ordere d By: Darien Florentino on 12-07-2021 RBC (Bld) [#/Vol] 4.48 10*6/uL 3.90-5.60 [facility] Serum or plasma alanine crawley otransferase measurement without P-5'-P (enzymatic activiOrdered By: Darien Florentino on 12-07-2021 ALT No additional P-5'-P [Catalytic activity/Vol] 74 U/L 10-60 [facility] Serum or plasma albumin/glob ulin mass ratioOrdered By: Darien Florentino on 12-07-2021 Albumin/Globulin [Mass ratio] 1.4 {ratio} [facility] Serum or plasma alkaline laurita sphatase measurement (enzymatic activity/volume)Ordered By: Darien Florentino on 12-07-2021 ALP [Catalytic activity/Vol] 50 U/L 32-92 [facility] Serum or plasma aspartate am inotransferase measurement (enzymatic activity/volume)Ordered By: Darien Florentino on 12-07-2021 AST [Catalytic activity/Vol] 38 U/L 10-42 [facility] Serum or plasma calcium vida urement (mass/volume)Ordered By: Darien Florentino on 12-07-2021 Calcium [Mass/Vol] 10.3 mg/dL 8.2-10.2 [facility] Serum or plasma chloride jennifer surement (moles/volume)Ordered By: Darien Florentino on 12-07-2021 Chloride [Moles/Vol] 101 mmol/L 95-114 [facility] Serum or plasma glucose vida urement (mass/volume)Ordered By: Darien Florentino on 12-07-2021 Glucose [Mass/Vol] 178 mg/dL 70-100 [facility] Comment on above: ADA recommended refe rence range Random Glucose Reference Range is dependent on time and content of last meal. Glucose of more than 200 mg/dL in a nonstressed, ambulatory subject supports the diagnosis of Diabetes Mellitus. Serum or plasma potassium me asurement (moles/volume)Ordered By: Darien Florentino on 12-07-2021 Potassium [Moles/Vol] 4.6 mmol/L 3.5-5.1 [facility] Serum or plasma sodium measu rement (moles/volume)Ordered By: Darien Florentino on 12-07-2021 Sodium [Moles/Vol] 136 mmol/L 136-146 [facility] Serum or plasma total biliru bin measurement (mass/volume)Ordered By: Darien Florentino on 12-07-2021 Bilirubin [Mass/Vol] 0.5 mg/dL 0.3-1.2 [facility] Serum or plasma total carbon dioxide measurement (moles/volume)Ordered By: Darien Florentino on 12-07-2021 CO2 [Moles/Vol] 25.7 mmol/L 22.0-30.[address] [facility] Serum or plasma urea nitroge n measurement (mass/volume)Ordered By: Darien Florentino on 12-07-2021 Urea nitrogen [Mass/Vol] 22 mg/dL 9- [facility] Troponin I.cardiac [Mass/vol ume] in Serum or Plasma by High sensitivity methodOrdered By: Darien Florentino on 12-07-2021 Troponin I.cardiac High sensitivity method [Mass/Vol] 5 pg/mL 0-[address] [facility] [address] CARDIAC SCORINGon 022 CT CARDIAC SCORING Patient Name: GRETEL BAINS STUDY: CT CARDIAC SCORING; 10/22/2021 12:08 pm INDICATION: none E78.00: Hypercholesteremia. COMPARISON: None. ACCESSION NUMBER(S): [id number] ORDERING CLINICIAN: JAYLON ULLOA TECHNIQUE: Using prospective [...] coronary heart disease events. According to the [place] [employer] Clinical Expert Consensus [...] modify other non-lipid coronary risk factors. Reference: Ookala P et al. Circulation. 2007; 115:402-426 Electronically signed by: YASMANI RYDER MD Normal [facility] CT Cardiac Scoringon 022 CT Cardiac Scoring Normal [facility] Work Phone: Office Visit (Internal Medic ine)on 07-20-2021 Follow-up visit Diagnoses/Problems Assessed Hypercholesteremia (272.0) (E78.00) Type 2 diabetes mellitus (250.00) (E11.9) Orders HTN (hypertension) Continue: Lisinopril 10 MG Oral Tablet; Take 1 tablet daily Rx By: Jaylon Ulloa; Dispense: 0 Days ; #:90 Tablet; Refill: 3;For: HTN (hypertension); YADI = N; Verified Transmission to [employer] ; Last Updated By: Nakia Buckley; 07/20/2021 8:55:[address] Cardiac Scoring; Status:Hold For - Scheduling; Requested for:20Jul2021; Perform:[facility]; Due:18Oct2021;Ordered ; For:Hypercholesteremi a; [...] mellitus; YADI = N; Verified Transmission to [employer] [address]0450; Last Updated By: Nakia Buckley; 07/20/2021 8:55:03 AM Continue: metFORMIN HCl ER 500 MG Oral Tablet Extended Release 24 Hour; TAKE 1 TABLET 3 times daily Rx By: Jaylon Ulloa; Dispense: 90 Days ; #:270 Tablet; Refill: 3;For: Type 2 diabetes mellitus; YADI = N; Verified Transmission to [employer] [id number]; Last Updated By: Nakia Buckley; 07/20/2021 8:55:03 AM Continue: OneTouch Delica Plus [id number]; Use 3 times daily as directed Rx [...] mellitus; YADI = N; Verified Transmission to [employer] 83046; Last Updated By: Nakia Buckley; 07/20/2021 8:55:03 [...] TABLET 3 times daily OneTouch Delica Plus [id number] 3 times daily as directed OneTouch Ultra In Vitro StripUSE TO TEST BLOOD GLUCOSE LEVELS 3 TIMES A DAY (more content not included)... Normal [employer] BASIC METABOLIC PANELon 12-2 Anion gap [Moles/Vol] 14 mmol/L Normal 10 - 20 [facility] Comment on above: Performed By: #### B MP #### [facility] [address] [place] [address] Calcium [Mass/Vol] 9.9 mg/dL Normal 8.6 - 10.6 [facility] Comment on above: Performed By: #### B MP #### [facility] [address] [place] [address] Chloride [Moles/Vol] 101 mmol/L Normal 98 - 107 [facility] Comment on above: Performed By: #### B MP #### [facility] [address] [place] [address] Creatinine [Mass/Vol] 1.25 mg/dL Normal 0.50 - 1.30 [facility] Comment on above: Performed By: #### B MP #### [facility] [address] [place] [address] GFR- AM. 70 mL/min/1.73m2 Normal >60 [facility] Comment on above: Result Comment: CALC ULATIONS OF ESTIMATED GFR ARE PERFORMED USING THE MDRD STUDY EQUATION FOR THE IDMS-TRACEABLE CREATININE METHODS. CLIN CHEM 2007;53:766-72 Performed By: #### B MP #### [facility] [address] [place] [address] GFR-NON AM. 58 mL/min/1.73m2 Abnormal >60 [facility] Comment on above: Performed By: #### B MP #### [facility] [address] [place] [address] Glucose [Mass/Vol] 186 mg/dL High 74 - 99 [facility] Comment on above: Performed By: #### B MP #### [facility] [address] [place] [address] HCO3 (Bld) [Moles/Vol] 28 mmol/L Normal 21 - 32 [facility] Comment on above: Performed By: #### B MP #### [facility] [address] [place] [address] Potassium [Moles/Vol] 4.8 mmol/L Normal 3.5 - 5.3 [facility] Comment on above: Performed By: #### B MP #### [facility] [address] [place] [address] Sodium [Moles/Vol] 138 mmol/L Normal 136 - 145 [facility] Comment on above: Performed By: #### B MP #### [facility] [address] [place] [address] Urea nitrogen [Mass/Vol] 21 mg/dL Normal 6 - 23 [facility] Comment on above: Performed By: #### B MP #### [facility] [address] [place] [address] HEMOGLOBIN A1Con 06-25-2021 Glucose [Mass/Vol] 163 mg/dL Normal [facility] Comment on above: Performed By: #### H BA1E #### [facility] [address] [place] [address] HbA1c (Bld) [Mass fraction] 7.3 % Abnormal [facility] Comment on above: Result Comment: Diag nosis of Diabetes-Adults Non-Diabetic: < or = 5.6% Increased risk for developing diabetes: 5.7-6.4% Diagnostic of diabetes: > or = 6.5% . Monitoring of Diabetes Age (y) Therapeutic Goal (%) Adults: >18 <7.0 Pediatrics: 13-18 <7.5 7-12 <8.0 0- 6 7.5-8.5 [place] [employer]. Diabetes Care 33(S1), Jun 2009. Performed By: #### H BA1E #### [facility] [address] [place] [address] Hemoglobin A1Con 06-25-2021 Glucose [Mass/Vol] 163 mg/dL [facility] Work Phone: HbA1c (Bld) [Mass fraction] 7.3 % Abnormal [facility] Work Phone: Comment on above: Diagnosis of Diabete s-Adults Non-Diabetic: < or = 5.6% Increased risk for developing diabetes: 5.7-6.4% Diagnostic of diabetes: > or = 6.5%. Monitoring of Diabetes Age (y) Therapeutic Goal (%) Adults: >18 <7.0 Pediatrics: 13-18 <7.5 7-12 <8.0 0- 6 7.5-8.5 [place] [employer]. Diabetes Care 33(S1), Jun 2009. LIPID PANEL (CORONARY RISK 2 )on 06-25-2021 Cholesterol [Mass/Vol] 218 mg/dL High 0 - 199 [facility] Comment on above: Result Comment: . AGE [...] dosing. Performed By: #### L IPID #### [facility] [address] [place] [address] Cholesterol in HDL [Mass/Vol] 28.6 mg/dL Abnormal [facility] Comment on above: Result Comment: . AGE VERY LOW LOW NORMAL HIGH 0-19 Y < 35 < 40 40-45 ---- 20-24 Y ---- < 40 >45 ---- >24 Y ---- < 40 40-60 >60 . Performed By: #### L IPID #### [facility] [address] [place] [address] Cholesterol in LDL [Mass/Vol] 140 mg/dL High 0 - 99 [facility] Comment on above: Result Comment: . NEAR BORD AGE DESIRABLE OPTIMAL HIGH HIGH VERY HIGH 0-19 Y 0 - 109 --- 110-129 >/= 130 ---- 20-24 Y 0 - 119 --- 120-159 >/= 160 ---- >24 Y 0 - 99 100-129 130-159 160-189 >/=190 . Performed By: #### L IPID #### [facility] [address] [place] [address] Cholesterol in VLDL [Mass/Vol] 49 mg/dL High 0 - 40 [facility] Comment on above: Performed By: #### L IPID #### [facility] [address] [place] [address] Cholesterol.total/Lisbeth sterol in HDL [Mass ratio] 7.6 {ratio} Abnormal [facility] Comment on above: Result Comment: REF VALUES DESIRABLE < 3.4 HIGH RISK > 5.0 Performed By: #### L IPID #### [facility] [address] [place] [address] NON-HDL CHOLESTEROL 189 mg/dL Normal [facility] Comment on above: Result Comment: AGE DESIRABLE BORDERLINE HIGH HIGH VERY HIGH 0-19 Y 0 - 119 120 - 144 >/= 145 >/= 160 20-24 Y 0 - 149 150 - 189 >/= 190 ---- >24 Y 30 MG/DL ABOVE LDL CHOLESTEROL GOAL . Performed By: #### L IPID #### [facility] [address] [place] [address] Triglyceride [Mass/Vol] 247 mg/dL High 0 - 149 [facility] Comment on above: Result Comment: . AGE [...] dosing. Performed By: #### L IPID #### [facility] [address] [place] [address] Laboratory - Chemistry and C hemistry - challengeon 06-25-2021 Anion gap [Moles/Vol] 14 mmol/L 10 - 20 - [facility] Work Phone: Calcium [Mass/Vol] 9.9 mg/dL 8.6 - 10.6 -[facility] Work Phone: Chloride [Moles/Vol] 101 mmol/L 98 - 107 -[facility] Work Phone: CO2 [Moles/Vol] 28 mmol/L 21 - 32 -[facility] Work Phone: Creatinine [Mass/Vol] 1.25 mg/dL See Below - [facility] Work Phone: Comment on above: Reference Range: 0.5 0 - 1.30 Glucose [Mass/Vol] 186 mg/dL above high threshold 74 - 99 -[facility] Work Phone: Potassium [Moles/Vol] 4.8 mmol/L 3.5 - 5.3 - [facility] Work Phone: Sodium [Moles/Vol] 138 mmol/L 136 - 145 MP-[facility] Work Phone: Urea nitrogen [Mass/Vol] 21 mg/dL 6 - 23 [employer] [facility] Work Phone: Lipid Panelon 06-25-2021 Cholesterol [Mass/Vol] 218 mg/dL above hig h threshold 0 - 199 [employer] [facility] Work Phone: Comment on above: . [...] Cholesterol in HDL [Mass/Vol] 28.6 mg/dL Abnormal [employer] [facility] Work Phone: Comment on above: . AGE VERY LOW LOW N ORMAL HIGH 0-19 Y < 35 < 40 40-45 ---- 20-24 Y ---- < 40 >45 ---- >24 Y ---- < 40 40-60 >60. Cholesterol in LDL [Mass/Vol] 140 mg/dL above high threshold 0 - 99 -[employer] [facility] Work Phone: Comment on above: . NEAR BORD AGE PATRICIA RABLE OPTIMAL HIGH HIGH VERY HIGH 0-19 Y 0 - 109 --- 110-129 >/= 130 ---- 20-24 Y 0 - 119 --- 120-159 >/= 160 ---- >24 Y 0 - 99 100-129 130-159 160-189 >/=190. Cholesterol non HDL [Mass/Vol] 189 mg/dL -[employer] [facility] Work Phone: Comment on above: AGE DESIRABLE BORDER LINE HIGH HIGH VERY HIGH 0-19 Y 0 - 119 120 - 144 >/= 145 >/= 160 20-24 Y 0 - 149 150 - 189 >/= 190 ---- >24 Y 30 MG/DL ABOVE LDL CHOLESTEROL GOAL. Cholesterol.total/Lisbeth sterol in HDL [Mass ratio] 7.6 {ratio} Abnormal [facility] Work Phone: Comment on above: REF VALUESDESIRABLE < 3.4HIGH RISK > 5.0 Triglyceride [Mass/Vol] 247 mg/dL above hi gh threshold 0 - 149 [facility] Work Phone: Comment on above: . AGE [...] mg/dL above high threshold 0 - 40 [facility] Work Phone: No Panel Informationon 06-25 70 {mL/min/1.73m2} >60 [facility] Work Phone: Comment on above: CALCULATIONS OF KHADAR MATED GFR ARE PERFORMED USING THE MDRD STUDY EQUATION FOR THE IDMS-TRACEABLE CREATININE METHODS. CLIN CHEM 2007;53:766-72 58 {mL/min/1.73m2} Abnormal >60 [facility] Work Phone: PROSTATE SPEC.AG,SCREENon PROSTATE SPEC.AG,SCREEN 2.61 ng/mL Normal 0.00 - 4.00 [facility] Comment on above: Result Comment: The FDA requires that the method used for PSA assay be reported to the physician. Values obtained with different assay methods must not be used interchangeably. This test was performed at [facility] using the Siemens Atellica PSA method, which is a sandwich immunoassay using chemiluminescence for quantitation. The assay is approved for measurement of prostate-specific antigen (PSA) in serum and may be used in conjunction with a digital rectal examination in men 50 years and older as an aid in detection of prostate cancer. 6-Bltrd-ozztbkyke inhibitors (e.g. Proscar, Finasteride, Avodart, Dutasteride and Michelle) for the treatment of BPH have been shown to lower PSA levels by an average of 50% after 6 months of treatment. Performed By: #### [facility] #### [facility] [address] [place] [address] Prostate Spec.Ag, Screenon 1 08-26-2020 Prostate specific Ag [Mass/Vol] 2.61 ng/mL See Below [facility] Work Phone: Comment on above: Reference Range: 0.0 0 - 4.00The FDA requires that the method used for PSA assay be reported to the physician. Values obtained with different assay methods must not be used interchangeably. This test was performed at [facility] using the SiemensAtellica PSA method, which is a sandwich immunoassay using chemiluminescence for quantitation. The assay is approvedfor measurement of prostate-specific antigen (PSA) in serum and may be used in conjunction with a digital rectalexamination in men 50 years and older as an aid in detection of prostate cancer. 0-Nduii-rayavaiem inhibitors (e.g. Proscar, Finasteride, Avodart, Dutasteride and Michelle) for the treatment of BPH have been shown to lower PSA levels by an average of 50% after 6 months of treatment. Blood Pressure Cuff Sizeon 0 03-07-2021 Tobacco use status [facility] b) No M -[facility] 102 DO Work Phone: Blood Pressure Cuff Size Adult [place] [address] DO Work Phone: Blood Pressure Cuff Sizeon 0 03-01-2021 Blood Pressure Cuff Size Adult [facility] Work Phone: IO Hgb A1Con 03-01-2021 HbA1c (Bld) [Mass fraction] 6.8 % 4.4-6.4% -[facility] Work Phone: IO glucose, blood, finger st ick via hand held monitoron 03-01-2021 Glucose [Mass/Vol] 121 mg/dL -[facility] Work Phone: Vital Signs Date Time Vital Sign Value Performing Clinician Facility 03-07-2025 08:39-0400 Body height 175.26 cm Светлана Mast DO Work Phone: [facility] 03-07-2025 08:39-0400 Body mass index (BMI) [Ratio] 28.7 kg/m2 Светлана Mast DO Work Phone: [facility] 03-07-2025 08:39-0400 Body temperature 96.5 [degF] Светлана Mast DO Work Phone: [facility] 03-07-2025 08:39-0400 Body weight 88.25 kg Светлана Mast DO Work Phone: [facility] 03-07-2025 08:39-0400 Diastolic blood pressure 60 mm[Hg] Светлана Mast DO Work Phone: [facility] 03-07-2025 08:39-0400 Heart rate 59 /min Светлана Mast DO Work Phone: [facility] 03-07-2025 08:39-0400 Respiratory rate 18 /min Светлана Mast DO Work Phone: [facility] 03-07-2025 08:39-0400 SaO2% (BldA) [Mass fraction] 96 % Светлана Mast DO Work Phone: [facility] 03-07-2025 08:39-0400 Systolic blood pressure 122 mm[Hg] Светлана Mast DO Work Phone: [facility] 11-08-2024 08:10-0400 Body height 175.26 cm [facility] 11-08-2024 08:10-0400 Body mass index (BMI) [Ratio] 29.2 kg/m2 [facility] 11-08-2024 08:10-0400 Body temperature 97 [degF] [facility] 11-08-2024 08:10-0400 Body weight 89.83 kg [facility] 11-08-2024 08:10-0400 Diastolic blood pressure 68 mm[Hg] [facility] 11-08-2024 08:10-0400 Heart rate 62 /min [facility] 11-08-2024 08:10-0400 Respiratory rate 18 /min [facility] 11-08-2024 08:10-0400 SaO2% (BldA) [Mass fraction] 96 % [facility] 11-08-2024 08:10-0400 Systolic blood pressure 128 mm[Hg] [facility] 07-21-2024 07:55-0500 Blood Pressure Location Devendra MINER [facility] 07-21-2024 07:55-0500 Diastolic blood pressure 84 mm[Hg] Devendra MIN[facility] 07-21-2024 07:55-0500 Heart rate 70 /min Devendra MIN[facility] 07-21-2024 07:55-0500 Respiratory rate 16 /min Devendra MIN[facility] 07-21-2024 07:55-0500 Systolic blood pressure 150 mm[Hg] Devendra MINER [facility] 07-16-2024 08:20-0500 Body height 175.26 cm [facility] 07-16-2024 08:20-0500 Body mass index (BMI) [Ratio] 29.7 kg/m2 [facility] 07-16-2024 08:20-0500 Body temperature 97 [degF] [facility] 07-16-2024 08:20-0500 Body weight 91.39 kg [facility] 07-16-2024 08:20-0500 Diastolic blood pressure 68 mm[Hg] [facility] 07-16-2024 08:20-0500 Heart rate 60 /min [facility] 07-16-2024 08:20-0500 SaO2% (BldA) [Mass fraction] 96 % [facility] 07-16-2024 08:20-0500 Systolic blood pressure 122 mm[Hg] [facility] 04-12-2024 08:27-0400 Body mass index (BMI) [Ratio] 30.1 kg/m2 MD Devendra Miner Work Phone: [facility] 04-12-2024 08:27-0400 Diastolic blood pressure 76 mm[Hg] MD Devendra Miner Work Phone: [facility] 04-12-2024 08:27-0400 Systolic blood pressure 140 mm[Hg] MD Devendra Miner Work Phone: [facility] 04-12-2024 08:13-0400 Body height 175.26 cm MD Devendra Miner Work Phone: [facility] 04-12-2024 08:13-0400 Body temperature 96 [degF] MD Devendra Miner Work Phone: [facility] 04-12-2024 08:13-0400 Body weight 92.53 kg MD Devendra Miner Work Phone: [facility] 04-12-2024 08:13-0400 Heart rate 56 /min MD Devendra Miner Work Phone: [facility] 04-12-2024 08:13-0400 Respiratory rate 18 /min MD Devendra Miner Work Phone: [facility] 04-12-2024 08:13-0400 SaO2% (BldA) [Mass fraction] 99 % MD Devendra Miner Work Phone: [facility] 02-04-2024 15:06-0400 Blood Pressure Location Devendranilson MINER [facility] 02-04-2024 15:06-0400 Diastolic blood pressure 80 mm[Hg] Devendra MINER [facility] 02-04-2024 15:06-0400 Heart rate 70 /min Devendra MINER [facility] 02-04-2024 15:06-0400 Respiratory rate 16 /min Devendranilson MINER [facility] 02-04-2024 15:06-0400 Systolic blood pressure 136 mm[Hg] Devendranilson MINER [facility] 12-22-2023 08:41-0400 Body height 175.26 cm DO Светлана Mast Work Phone: [facility] 12-22-2023 08:41-0400 Body mass index (BMI) [Ratio] 29.5 kg/m2 DO Светлана Mast Work Phone: [facility] 12-22-2023 08:41-0400 Body temperature 96.8 [degF] DO Светлана Mast Work Phone: [facility] 12-22-2023 08:41-0400 Body weight 90.88 kg DO Светлана Mast Work Phone: [facility] 12-22-2023 08:41-0400 Diastolic blood pressure 70 mm[Hg] DO Светлана Mast Work Phone: [facility] 12-22-2023 08:41-0400 Heart rate 56 /min DO Светлана Mast Work Phone: [facility] 12-22-2023 08:41-0400 SaO2% (BldA) [Mass fraction] 97 % DO Светлана Mast Work Phone: [facility] 12-22-2023 08:41-0400 Systolic blood pressure 132 mm[Hg] DO Светлана Mast Work Phone: [facility] 10-16-2023 13:00-0400 Diastolic blood pressure 66 mm[Hg] DO Светлана Mast Work Phone: [facility] 10-16-2023 13:00-0400 Heart rate 54 /min DO Светлана Mast Work Phone: [facility] 10-16-2023 13:00-0400 Respiratory rate 16 /min DO Светлана Mast Work Phone: [facility] 10-16-2023 13:00-0400 SaO2% (BldA) [Mass fraction] 98 % DO Светлана Mast Work Phone: [facility] 10-16-2023 13:00-0400 Systolic blood pressure 136 mm[Hg] DO Светлана Mast Work Phone: [facility] 10-16-2023 12:08-0400 Body temperature 98 [degF] DO Светлана Mast Work Phone: [facility] 10-16-2023 11:43-0400 Inhaled oxygen flow rate 8 L/min DO Светлана Mast Work Phone: [facility] 10-16-2023 09:17-0400 Body height 175.26 cm DO Светлана Mast Work Phone: [facility] 10-16-2023 09:17-0400 Body mass index (BMI) [Ratio] 28.3 kg/m2 DO Светлана Mast Work Phone: [facility] 10-16-2023 09:17-0400 Body weight 87 kg DO Светлана Mast Work Phone: [facility] 09-18-2023 13:44-0400 Body height 177.8 cm [facility] 09-18-2023 13:44-0400 Body mass index (BMI) [Ratio] 29 kg/m2 [facility] 09-18-2023 13:44-0400 Body temperature 98.4 [degF] [facility] 09-18-2023 13:44-0400 Body weight 91.82 kg [facility] 09-18-2023 13:44-0400 Diastolic blood pressure 68 mm[Hg] [facility] 09-18-2023 13:44-0400 Heart rate 68 /min [facility] 09-18-2023 13:44-0400 SaO2% (BldA) [Mass fraction] 98 % [facility] 09-18-2023 13:44-0400 Systolic blood pressure 136 mm[Hg] [facility] 07-14-2023 08:45-0500 Body height 177.8 cm Светлана Mast Other [facility] 07-14-2023 08:45-0500 Body mass index (BMI) [Ratio] 29.97 kg/m2 Светлана Mast Other [employer] [facility] [employer] Other 07-14-2023 08:45-0500 Body weight 94.76 kg Светлана Mast Other [employer] [facility] [employer] Other 07-14-2023 08:45-0500 Body weight 94.75 kg [facility] 07-14-2023 08:45-0500 Diastolic blood pressure 72 mm[Hg] Светлана Mast Other [facility] 07-14-2023 08:45-0500 Respiratory rate 18 /min Светлана Mast Other [facility] Other 07-14-2023 08:45-0500 SaO2% (BldA) [Mass fraction] 96 % Светлана Mast Other [facility] Other 07-14-2023 08:45-0500 Systolic blood pressure 128 mm[Hg] Светлана Mast Other [facility] 06-04-2023 13:29-0500 Blood Pressure Location Devendra [employer] [facility] 06-04-2023 13:29-0500 Diastolic blood pressure 83 mm[Hg] Devendra MINER [facility] 06-04-2023 13:29-0500 Heart rate 87 /min Devendra [employer] [facility] 06-04-2023 13:29-0500 Respiratory rate 16 /min Devendra [employer] [facility] 06-04-2023 13:29-0500 Systolic blood pressure 135 mm[Hg] Devendra MINER [facility] 06-02-2023 08:45-0500 Body height 177.8 cm Светлана Mast Other [facility] Other 06-02-2023 08:45-0500 Body mass index (BMI) [Ratio] 29.02 kg/m2 Светлана Mast Other [facility] Other 06-02-2023 08:45-0500 Body temperature 96.5 [degF] Светлана Mast Other [facility] Other 06-02-2023 08:45-0500 Body weight 91.76 kg Светлана Mast Other [facility] Other 06-02-2023 08:45-0500 Diastolic blood pressure 84 mm[Hg] Светлана Mast Other [facility] Other 06-02-2023 08:45-0500 SaO2% (BldA) [Mass fraction] 98 % Светлана Mast Other [facility] Other 06-02-2023 08:45-0500 Systolic blood pressure 124 mm[Hg] Светлана Mast Other [facility] Other 02-27-2023 09:00-0400 Body height 177.8 cm Светлана Mast Other [facility] Other 02-27-2023 09:00-0400 Body mass index (BMI) [Ratio] 29.02 kg/m2 Светлана Mast Other [facility] Other 02-27-2023 09:00-0400 Body temperature 96.9 [degF] Светлана Mast Other [facility] Other 02-27-2023 09:00-0400 Body weight 91.76 kg Светлана Mast Other [facility] Other 02-27-2023 09:00-0400 Diastolic blood pressure 72 mm[Hg] Светлана Mast Other [facility] Other 02-27-2023 09:00-0400 SaO2% (BldA) [Mass fraction] 97 % Светлана Mast Other [facility] Other 02-27-2023 09:00-0400 Systolic blood pressure 130 mm[Hg] Светлана Mast Other [facility] Other 01-27-2023 09:15-0400 Body height 177.8 cm Светлана Mast Other [facility] Other 01-27-2023 09:15-0400 Body mass index (BMI) [Ratio] 28.89 kg/m2 Светлана Mast Other [facility] Other 01-27-2023 09:15-0400 Body temperature 96.4 [degF] Севтлана Mast Other [facility] Other 01-27-2023 09:15-0400 Body weight 91.36 kg Светлана Mast Other [facility] Other 01-27-2023 09:15-0400 Diastolic blood pressure 80 mm[Hg] Светлана Mast Other [facility] Other 01-27-2023 09:15-0400 SaO2% (BldA) [Mass fraction] 98 % Светлана Mast Other [facility] Other 01-27-2023 09:15-0400 Systolic blood pressure 134 mm[Hg] Светлана Mast Other [facility] Other 06-14-2022 09:03-0500 Body height 172.72 cm Jaylon Ulloa Work Phone: [employer] Work Phone: 06-14-2022 09:03-0500 Body mass index (BMI) [Ratio] 31.78 kg/m2 Jaylon Ulloa Work Phone: [employer] Work Phone: 06-14-2022 09:03-0500 Body surface area Derived from formula 2.08 m2 Jaylon Ulloa Work Phone: [employer] Work Phone: 06-14-2022 09:03-0500 Body temperature 97.4 [degF] Jaylon Ulloa Work Phone: [employer] [facility] Work Phone: 06-14-2022 09:03-0500 Body weight 94.8 kg Jaylon Ulloa Work Phone: [employer] [facility] Work Phone: 06-14-2022 09:03-0500 Diastolic blood pressure 62 mm[Hg] Jaylon Ulloa Work Phone: [employer] [facility] Work Phone: 06-14-2022 09:03-0500 Heart rate 73 /min Jaylon Ulloa Work Phone: [employer] [facility] Work Phone: 06-14-2022 09:03-0500 SaO2% (BldA) [Mass fraction] 97 % Jaylon Ulloa Work Phone: [employer] [facility] Work Phone: 06-14-2022 09:03-0500 Systolic blood pressure 120 mm[Hg] Jaylon Ulloa Work Phone: [employer] [facility] Work Phone: 01-18-2022 10:54-0400 Body height 172.72 cm Jaylon Ulloa Work Phone: [employer] [facility] Work Phone: 01-18-2022 10:54-0400 Body mass index (BMI) [Ratio] 30.87 kg/m2 Jaylon Ulloa Work Phone: [employer] [facility] Work Phone: 01-18-2022 10:54-0400 Body surface area Derived from formula 2.06 m2 Jaylon Ulloa Work Phone: [employer] [facility] Work Phone: 01-18-2022 10:54-0400 Body temperature 97.1 [degF] Jaylon Ulloa Work Phone: [employer] [facility] Work Phone: 01-18-2022 10:54-0400 Body weight 92.08 kg Jaylon Tomi Jimenezshana Work Phone: [employer] [facility] Work Phone: 01-18-2022 10:54-0400 Diastolic blood pressure 78 mm[Hg] Jaylon Tomi Jimenezshana Work Phone: [employer] [facility] Work Phone: 01-18-2022 10:54-0400 Heart rate 78 /min Jaylon Tomi Mindy Work Phone: [employer] [facility] Work Phone: 01-18-2022 10:54-0400 SaO2% (BldA) [Mass fraction] 98 % Jaylon Ulloa Work Phone: [employer] [facility] Work Phone: 01-18-2022 10:54-0400 Systolic blood pressure 120 mm[Hg] Jaylon Jimenezshana Work Phone: [employer] [facility] Work Phone: 12-07-2021 09:37-0400 Body height 175.26 cm [facility] 12-07-2021 09:37-0400 Body mass index (BMI) [Ratio] 30.9 kg/m2 [facility] 12-07-2021 09:37-0400 Body temperature 98.2 [degF] [facility] 12-07-2021 09:37-0400 Body weight 95 kg [facility] 12-07-2021 09:37-0400 Diastolic blood pressure 90 mm[Hg] [facility] 12-07-2021 09:37-0400 Heart rate 57 /min [facility] 12-07-2021 09:37-0400 Respiratory rate 18 /min [facility] 12-07-2021 09:37-0400 SaO2% (BldA) [Mass fraction] 98 % [facility] 12-07-2021 09:37-0400 Systolic blood pressure 193 mm[Hg] [facility] 03-07-2021 08:35-0400 Body height 172.72 cm Jaylon Ulloa Work Phone: [facility] 102 DO Work Phone: 03-07-2021 08:35-0400 Body mass index (BMI) [Ratio] 31.47 kg/m2 Jaylon Ulloa Work Phone: [facility] 102 DO Work Phone: 03-07-2021 08:35-0400 Body surface area Derived from formula 2.07 m2 Jaylon Ulloa Work Phone: [facility] 102 DO Work Phone: 03-07-2021 08:35-0400 Body temperature 96.2 [degF] Jaylon Jimenezkl Work Phone: [facility] 102 DO Work Phone: 03-07-2021 08:35-0400 Body weight 93.9 kg Jaylon Jimenezkl Work Phone: [facility] 102 DO Work Phone: 03-07-2021 08:35-0400 Diastolic blood pressure 60 mm[Hg] Jaylon Jimenezkl Work Phone: [facility] 102 DO Work Phone: 03-07-2021 08:35-0400 Heart rate 63 /min Jaylon Ulloa Work Phone: [facility] 102 DO Work Phone: 03-07-2021 08:35-0400 Respiratory rate 16 /min Jaylon Tomi Ulloa Work Phone: [facility] 102 DO Work Phone: 03-07-2021 08:35-0400 SaO2% (BldA) [Mass fraction] 98 % Jaylon Tomi Jimenezshana Work Phone: [facility] 102 DO Work Phone: 03-07-2021 08:35-0400 Systolic blood pressure 140 mm[Hg] Jaylon Ulloa Work Phone: [facility] 102 DO Work Phone: 03-01-2021 09:57-0400 Body height 172.72 cm Jaylon Tomi Ulloa Work Phone: [facility] Work Phone: 03-01-2021 09:57-0400 Body mass index (BMI) [Ratio] 30.87 kg/m2 Jaylon Tomi Ulloa Work Phone: [employer] [facility] Work Phone: 03-01-2021 09:57-0400 Body surface area Derived from formula 2.06 m2 Jaylon Ulloa Work Phone: [facility] Work Phone: 03-01-2021 09:57-0400 Body temperature 97.1 [degF] Jaylon Ulloa Work Phone: [facility] Work Phone: 03-01-2021 09:57-0400 Body weight 92.08 kg Jaylon Ulloa Work Phone: [employer] [facility] Work Phone: 03-01-2021 09:57-0400 Diastolic blood pressure 80 mm[Hg] Jaylon Ulloa Work Phone: [employer] [facility] Work Phone: 03-01-2021 09:57-0400 Heart rate 73 /min Jaylon Ulloa Work Phone: [employer] [facility] Work Phone: 03-01-2021 09:57-0400 SaO2% (BldA) [Mass fraction] 99 % Jaylon Ulloa Work Phone: [employer] [facility] Work Phone: 03-01-2021 09:57-0400 Systolic blood pressure 150 mm[Hg] Jaylon Ulloa Work Phone: [employer] [facility] Work Phone: 07-15-2019 11:00-0500 BMI (Body Mass Index) 32.16 kg/m2 Jaylon Ulloa [facility] Work Phone: 07-15-2019 11:00-0500 Body Temperature 96.7 [degF] Jaylon Ulloa [facility] Work Phone: Comment on above: Method: Temporal 07-15-2019 11:00-0500 Body weight 95.94 kg Jaylon Ulloa [facility] Work Phone: 07-15-2019 11:00-0500 BP Diastolic 90 mm[Hg] Jaylon Ulloa [facility] Work Phone: Comment on above: Location: LUE; Position: Sitting 07-15-2019 11:00-0500 BP Systolic 150 mm[Hg] Jaylon Ulloa [facility] Work Phone: Comment on above: Location: LUE; Position: Sitting 07-15-2019 11:00-0500 BSA (Body Surface Area) 2.09 m2 Jaylon Ulloa [employer] Work Phone: 07-15-2019 11:00-0500 Height 172.72 cm Jaylon Ulloa [facility] Work Phone: 07-15-2019 11:00-0500 Pulse (Heart Rate) 87 /min Jaylon Ulloa [employer] Work Phone: 07-15-2019 11:00-0500 Pulse Oximetry 98 % Jaylon Ulloa [employer] [facility] Work Phone: Comment on above: Source: RA Encounters Encounter Date Encounter Type Care Provider Facility Start: 03-30-2025 ambulatory Devendra Hassan ty:[facility] Start: 03-17-2025 ambulatory Devendra Hassan ty:[id number] Start: 03-07-2025 End: 03-07-2025 ambulatory Светлана Mast DO Work Phone: [facility] Work Phone: Start: 03-07-2025 End: 03-07-2025 Patient encounter procedure Светлана E Mast DO -[facility] [place] Work Phone: Start: 02-23-2025 End: 02-23-2025 ambulatory Devendra MINER Facility: [place] Start: 02-23-2025 End: 02-23-2025 Patient encounter procedure Devendra MINER [facility] [employer] Start: 02-17-2025 End: 02-17-2025 ambulatory Heide Real Facility:[facility] Start: 02-17-2025 End: 02-17-2025 Patient encounter procedure Devendra MINER [facility] [employer] Start: 11-08-2024 End: 11-08-2024 ambulatory [facility] Work Phone: Start: 11-08-2024 End: 11-08-2024 Patient encounter procedure [facility] Work Phone: Start: 07-21-2024 End: 07-21-2024 ambulatory Devendra MINER Facility:[facility] Start: 07-21-2024 End: 07-21-2024 Patient encounter procedure Devendra MINER [facility] Start: 07-16-2024 End: 07-16-2024 ambulatory [facility] Work Phone: Start: 07-16-2024 End: 07-16-2024 Patient encounter procedure [facility] Work Phone: Start: 07-14-2024 End: 07-14-2024 Lab Drop off Devendra MINER [facility] Start: 07-14-2024 End: 07-14-2024 ambulatory Devendra MINER Facility:[facility] Start: 07-14-2024 End: 07-14-2024 Patient encounter procedure Devendra MINER [facility] Start: 04-14-2024 End: 04-14-2024 Patient encounter procedure DO Светлана Mast Work Phone: [facility] Start: 04-14-2024 End: 04-14-2024 ambulatory Светлана Mast Facility:[facility] Start: 04-12-2024 End: 04-12-2024 ambulatory MD Devendra iMner Work Phone: [facility] Work Phone: Start: 04-12-2024 End: 04-12-2024 Patient encounter procedure MD Devendra Miner Work Phone: [facility] [place] Work Phone: Start: 02-04-2024 End: 02-04-2024 ambulatory Devendra MINER Facility:[facility] Start: 02-04-2024 End: 02-04-2024 Patient encounter procedure Devendra MINER [facility] [place] Start: 01-26-2024 End: 01-26-2024 ambulatory DO Светлана Mast Work Phone: [facility] Work Phone: Start: 01-26-2024 End: 01-26-2024 Departed Referred DO Светлана Mast Work Phone: [facility] Start: 01-26-2024 End: 01-26-2024 ambulatory Devendra MINER Facility:[id number] Start: 12-30-2023 End: 12-30-2023 ambulatory Devendra MINER Facility:[facility] Start: 12-30-2023 End: 12-30-2023 Patient encounter procedure Devendra MINER [facility] Start: 12-25-2023 End: 12-25-2023 Patient encounter procedure DO Светлана Mast Work Phone: [facility] [place] Work Phone: Start: 12-25-2023 End: 12-25-2023 ambulatory DO Светлана Mast Work Phone: [facility] Work Phone: Start: 12-22-2023 End: 12-22-2023 ambulatory DO Светлана Mast Work Phone: [facility] Work Phone: Start: 12-22-2023 End: 12-22-2023 Patient encounter procedure DO Светлана Mast Work Phone: [facility] [place] Work Phone: Start: 11-05-2023 End: 11-05-2023 ambulatory Devendra MINER Facility:[facility] Start: 11-05-2023 End: 11-05-2023 Lab Drop off Devendra MINER [facility] Start: 11-05-2023 End: 11-05-2023 ambulatory Devendra MINER Facility:[facility] [place] Start: 11-05-2023 End: 11-05-2023 Patient encounter procedure Devendra MINER [facility] [place] Start: 10-20-2023 ambulatory Devendra MINER Facili ty:[facility] [place] Start: 10-17-2023 End: 10-17-2023 ambulatory Devendra MINER Facility:[facility] [place] Start: 10-17-2023 End: 10-17-2023 Patient encounter procedure Devendra MINER [facility] [place] Start: 10-16-2023 End: 10-16-2023 Admission to same day surgery center DO Светлана Mast Work Phone: [facility] [place] Start: 10-16-2023 End: 10-16-2023 ambulatory DO Светлана Mast Work Phone: [facility] Work Phone: Start: 10-16-2023 End: 10-16-2023 ambulatory Devendra MINER Facility:[id number] Start: 10-16-2023 End: 10-16-2023 Off-Site Devendra MINER [facility] [place] Start: 10-01-2023 ambulatory Devendra Picketti ty:[facility] [place] Start: 09-18-2023 End: 09-18-2023 ambulatory [facility] Work Phone: Start: 09-18-2023 End: 09-18-2023 Patient encounter procedure [facility] [place] Work Phone: Start: 09-15-2023 ambulatory Devendra Romero MINER [place] ty:[facility] Start: 09-11-2023 ambulatory Devendra Romero MINER [place] ty:[id number] Start: 07-14-2023 End: 07-14-2023 ambulatory Светлана Mast Other [facility] Other Start: 07-14-2023 Office outpatient vi sit 25 minutes Светлана Mast [facility] Start: 07-14-2023 End: 07-14-2023 Patient encounter procedure [facility] [place] Work Phone: Start: 07-01-2023 End: 07-01-2023 Patient encounter procedure Devendra MINER [facility] [place] Start: 06-04-2023 End: 06-04-2023 Patient encounter procedure Devendra MINER [facility] [place] Start: 06-02-2023 End: 06-02-2023 ambulatory Светлана Mast Other [facility] Other Start: 06-02-2023 Office outpatient vi sit 25 minutes Светлана Mast [facility] Start: 03-26-2023 End: 03-26-2023 ambulatory Светлана Mast Other [facility] Other Start: 03-26-2023 Telephone encounter Светлана Mast [facility] Start: 03-24-2023 End: 03-24-2023 ambulatory Светлана Mast Other [facility] Other Start: 03-24-2023 Telephone encounter Светлана Mast [facility] Start: 02-27-2023 End: 02-27-2023 ambulatory Светлана Mast Other [facility] Other Start: 02-27-2023 Office outpatient vi sit 25 minutes Светлана Mast [facility] Start: 02-17-2023 End: 02-17-2023 ambulatory DO Светлана Mast Work Phone: [facility] Work Phone: Start: 02-17-2023 End: 02-17-2023 Patient encounter procedure DO Светлана Mast Work Phone: [facility] [address] Work Phone: Start: 02-03-2023 End: 02-03-2023 ambulatory DO Светлана Mast Work Phone: [facility] Work Phone: Start: 02-03-2023 End: 02-03-2023 Patient encounter procedure DO Светлана Mast Work Phone: [facility] Start: 01-27-2023 End: 01-27-2023 ambulatory Светлана Mast Other [facility] Other Start: 01-27-2023 Office outpatient ne w 45 minutes Светлана Mast [facility] Start: 10-08-2022 End: 10-08-2022 ambulatory CESARIO YOON MD [facility] Start: 09-10-2022 ambulatory VANGIE DORADO MD Facility: [facility] Start: 08-23-2022 AUDIT Jaylon E Nekl Work Phone: [facility] Work Phone: Start: 07-06-2022 AUDIT Jaylon E Nekl Work Phone: [facility] Work Phone: Start: 06-14-2022 Office outpatient vi sit 15 minutes Jaylon E Nekl Work Phone: [facility] Work Phone: Start: 06-14-2022 ambulatory JAYLON LAKHWINDER NEKL Facil [id number] Start: 03-12-2022 AUDIT Jaylon E Nekl Work Phone: [facility] Work Phone: Start: 02-09-2022 AUDIT Jaylon E Nekl Work Phone: [facility] Work Phone: Start: 02-08-2022 End: 02-09-2022 ambulatory GRETEL MAJANO MD [facility] Start: 01-19-2022 Chart Update Jaylon E Nekl Work Phone: [facility] Work Phone: Start: 01-18-2022 Office outpatient vi sit 15 minutes Jaylon E Nekl Work Phone: [facility] Work Phone: Start: 01-18-2022 ambulatory JAYLON KEANE NEKL Facil [id number] Start: 12-12-2021 Telephone encounter Jaylon E Nekl Work Phone: [facility] Work Phone: Start: 12-07-2021 End: 12-07-2021 Emergency department patient visit [facility]Emergency Room Start: 11-14-2021 AUDIT Jaylon Tomi Nekl Work Phone: [facility] Work Phone: Start: 11-06-2021 AUDIT Jaylon E Nekl Work Phone: [facility] Work Phone: Start: 11-03-2021 AUDIT Jaylon E Nekl Work Phone: [facility] Work Phone: Start: 10-22-2021 ambulatory JAYLON LAKHWINDER NEKL Facil [id number] Start: 07-20-2021 ambulatory JAYLON LAKHWINDER NEKL Facil [id number] Start: 06-25-2021 AUDIT Jaylon E Nekl Work Phone: [facility] Work Phone: Start: 06-20-2021 Telephone encounter Jaylon E Nekl Work Phone: [facility] Work Phone: Start: 06-13-2021 AUDIT Jaylon E Nekl Work Phone: [facility] Work Phone: Start: 03-07-2021 Patient encounter procedure Jaylon E Nekl Work Phone: [facility] 102 DO Work Phone: Start: 03-01-2021 Office outpatient vi sit 15 minutes Jaylon E Nekl Work Phone: [facility] Work Phone: Start: 03-01-2021 Patient encounter procedure Jaylon E Nekl Work Phone: [facility] Work Phone: Start: 01-22-2021 AUDIT Jaylon E Nekl Work Phone: [facility] Work Phone: Start: 12-09-2019 Patient encounter procedure Jaylon Ulloa [facility] Work Phone: Start: 07-15-2019 Patient encounter procedure Jaylon Ulloa [facility] Work Phone: Start: 02-16-2019 Patient encounter procedure [facility] Ulloa [facility] Work Phone: Start: 10-20-2018 Patient encounter procedure Jaylon Ulloa [facility] Work Phone: Start: 07-20-2018 Patient encounter procedure Jaylon Ulloa [facility] Work Phone: Start: 03-23-2018 Patient encounter procedure Jaylon Ulloa [facility] Work Phone: Start: 11-20-2017 Patient encounter procedure Jaylon Ulloa [facility] Work Phone: Start: 07-25-2017 Patient encounter procedure Jaylon Ulloa [facility] Work Phone: Patient encounter procedure Jaylon Ulloa Work Phone: -[place] [id number] DO Work Phone: Procedures Date Procedure Procedure Detail Performing Clinician Start: 01-26-2024 MRI-US fusion guided transrectal biopsy of prostate Devendra MINER Start: 12-30-2023 Urodynamic studies Patr jamin MINER Start: 12-25-2023 MR prostate wo/w con DO Светлана Mast Work Phone: Start: 10-16-2023 Transurethral prostatectomy DO Светлана Mast [...] panel Jaylon saldana Procedure on knee Devendra SESAY Transurethral cystoscopy Becky MINER Plan of Treatment Date Care Activity Detail Author Start: 01-27-2024 [facility] Start: 12-25-2023 MR prostate wo/w con MR prostate wo/w con [facility] Start: 10-16-2023 [facility] Start: 12-16-2022 FUV, Provider: Jaylon Ulloa, Status: Pen, Time: 8:45 AM FUV, Provider: Jaylon Ulloa, Status: Pen, Time: 8:45 AM [employer] [facility] Work Phone: Start: 06-14-2022 FUV, Provider: Jaylon Ulloa, Status: Pen, Time: 9:00 AM FUV, Provider: Jaylon Ulloa, Status: Pen, Time: 9:00 AM [facility] Work Phone: Start: 01-18-2022 FUV, Provider: Jaylon Ulloa, Status: Pen, Time: 10:45 AM FUV, Provider: Jaylon Ulloa, Status: Pen, Time: 10:45 AM [employer] [facility] Work Phone: Start: 07-02-2021 FUV, Provider: Jaylon Ulloa, Status: Pen, Time: 8:30 AM FUV, Provider: Jaylon Ulloa, Status: Pen, Time: 8:30 AM [employer] Work Phone: Start: 03-07-2021 KANG, Provider: Alie Gaytan, Status: Pen, Time: 8:00 AM [facility]CR[facility], Provider: Alie Gaytan, Status: Pen, Time: 8:00 AM [facility] Work Phone: Start: 03-01-2021 FUV, Provider: Jaylon Ulloa, Status: Pen, Time: 9:45 AM FUV, Provider: Jaylon Ulloa, Status: Pen, Time: 9:45 AM [facility] Work Phone: Comprehensive metabo lic 2000 panel - Serum or Plasma [facility] Patient Education Paresthesia (DC) [facility] Work Phone: Patient referral [facility] Work Phone: [facility] Immunizations Immunization Date Immunization Notes Care Provider Fa reagan 06-16-2024 influenza virus vacc ine, unspecified formulation DevendraHonk [facility] 06-16-2024 influenza, high dose seasonal, preservative-free [facility] 04-11-2023 Flu Shot - Documenta tion Purposes Only Светлана Mast Other [facility] 04-11-2023 influenza virus vacc ine, unspecified formulation Elyssafregori [facility] 03-21-2023 Prevnar 20 Светлана Mast Other [facility] 12-17-2022 tetanus toxoid, redu brittany diphtheria toxoid, and acellular pertussis vaccine, adsorbed Светлана Mast Other [facility] 06-02-2022 Moderna COVID-19 Biv al Booster 50 MCG/0.5ML Intramuscular Suspension Jaylon Ulloa Work Phone: [facility] 04-19-2022 zoster vaccine recombinant Jaylon E Nekl Work Phone: [facility] 04-08-2022 Fluzone High-Dose Quadrivalent 0.7 ML Intramuscular Suspension Prefilled Syringe Jaylon E Nekl Work Phone: [facility] Work Phone: 04-08-2022 influenza virus vacc ine, unspecified formulation Elyssafregori [facility] 01-11-2022 zoster vaccine recombinant Jaylon E Nekl Work Phone: [facility] 05-21-2021 Moderna COVID-19 Vac cine 100 MCG/0.5ML Intramuscular Suspension Jaylon E Nekl Work Phone: [facility] 03-01-2021 influenza virus vacc ine, unspecified formulation Elyssafregori [facility] 03-01-2021 influenza, high dose seasonal, preservative-free; Translations: [Fluzone High-Dose 0.5 ML Intramuscular Suspension Prefilled Syringe] Jaylon E Nekl Work Phone: [facility] Work Phone: Comment on above: Series: 08-01-2020 Moderna COVID-19 Vac cine 100 MCG/0.5ML Intramuscular Suspension Jaylon E Nekl Work Phone: [facility] 07-04-2020 Moderna COVID-19 Vac cine 100 MCG/0.5ML Intramuscular Suspension Jaylon E Nekl Work Phone: [facility] 03-09-2020 influenza virus vacc ine, unspecified formulation Elyssafregori [facility] 03-09-2020 influenza, injectabl e, quadrivalent, preservative free Jaylon E Nekl Work Phone: [facility] 102 DO Work Phone: 04-22-2019 influenza virus vacc ine, unspecified formulation Elyssafregori [facility] 04-22-2019 Influenza, injectabl e, Madin Vandana Canine Kidney, quadrivalent with preservative Jaylon E Nekl Work Phone: [facility] 102 DO Work Phone: 04-10-2018 influenza virus vacc ine, unspecified formulation Devendra Tr[employer]here [facility] 04-10-2018 influenza, injectabl e, quadrivalent, preservative free Jaylon E Nekl Work Phone: [facility] 102 DO Work Phone: Payers Date Payer Category Payer Private Health Insurance [facility] [id number] 2023 Medicare [id number] 2022 Self-pay [id number] 2020 Medicare [id number] 1959 Private Health Insurance [id number] 1959 Unknown [id number] 1955 Unknown [id number] 2.16. 840.1.599949.3.579.2.356 1955 Unknown [id number] .16. 840.1.266582.3.579.2.356 1955 Unknown [id number] 2.16. 840.1.588189.3.579.2.356 1955 Unknown [id number] 2.16. 840.1.660833.3.579.2.356 1955 Unknown [id number] 2.16.8 40.1.351899.3.579.2.159 1955 Unknown [id number] 2.16.8 40.1.981128.3.579.2.598 1955 Unknown [id number] 2.16.8 40.1.509252.3.579.2.598 1955 Unknown [id number] 2.16.8 40.1.294033.3.579.2.727 1955 Unknown [id number] 2.16.8 40.1.476755.3.579.2.727 1955 Unknown [id number] 2.16.8 40.1.370080.3.579.2.727 1955 Unknown [id number] 2.16.8 40.1.004378.3.579.2.727 1955 Unknown [id number] 2.16.8 40.1.773928.3.579.2.727 1955 Unknown [id number] 2.16.8 40.1.848075.3.579.2.727 1955 Unknown [id number] 2.16.8 40.1.643811.3.579.2.727 1955 Unknown [id number] 2.16.8 40.1.134580.3.579.2.727 1955 Unknown [id number] 2.16.8 40.1.750996.3.579.2.727 1955 Unknown [id number] 2.16.8 40.1.309800.3.579.2.727 1955 Unknown [id number] 2.16.8 40.1.341602.3.579.2.727 1955 Unknown [id number] 2.16.8 40.1.100061.3.579.2.727 1955 Unknown [id number] 2.16.8 40.1.211434.3.579.2.727 1955 Unknown [id number] 2.16.8 40.1.148868.3.579.2.727 1955 Unknown [id number] 2.16.8 40.1.945265.3.579.2.727 1955 Unknown [id number] 2.16.8 40.1.058257.3.579.2.727 1955 Unknown [id number] 2.16.8 40.1.267300.3.579.2.727 1955 Unknown [id number] 2.16.8 40.1.016243.3.579.2.727 1955 Unknown [id number] 2.16.8 40.1.355780.3.579.2.727 1955 Unknown [id number] 2.16.8 40.1.000438.3.579.2.727 Unknown Unknown [id number] Unknown [id number] 2.16.8 40.1.835619.3.579.2.531 Unknown [id number] 2.16.8 40.1.309008.3.579.2.531 Unknown [id number] 2.16.8 40.1.788708.3.579.2.531 Unknown [id number] 2.16.8 40.1.190548.3.579.2.531 Social History Date Type Detail Facility Currently working Currently working [employer] Work Phone: Start: 12-07-2021 [facility] Start: 1955 Sex Assigned At Male [facility] Sex Assigned At [facility] Start: 06-04-2023 End: 12-22-2023 Tobacco smoking status Never smoked tobacco (finding) [facility] Tobacco smoking status Never [facility] Start: 07-16-2024 End: 11-08-2024 Sex Male (finding) [facility] Sexual Orientation [facility] NEGATED: Highlighted row - [facility]: Medical Equipment Procedure Code Equipment [...] /State Functional Status Date Assessment Result Facility 07-21-2024 Functional Status N/A [facility] 02-04-2024 Functional Status N/A [facility] 11-05-2023 Functional Status N/A [facility] 10-16-2023 Functional status Patient at Baseline [facility] Work Phone: 07-01-2023 Functional Status N/A [facility] 06-04-2023 Functional Status N/A [facility] NEGATED: Highlighted row Functional performance Functional status health issues are not documented [facility] Work Phone: Mental Status Date Assessment Result Facility 10-16-2023 Cognitive function Cognitive Sta tus Patient at Baseline [facility] Work Phone: NEGATED: Highlighted row Cognitive function [Interpretation] Cognitive status health issues are not documented Disease [facility] Work Phone: Clinical Notes 01-27-2023 to 02-23-2025 Note Date & Type Note Facility 02-23-2025 Hospital Discharg e instructions Patient Education 02/23/2025 08:23:37 Transrectal Ultrasound-Guided Prostate Biopsy, Care After Transrectal Ultrasound-Guided Prostate Biopsy, Care After The following information offers guidance on how to care for yourself after your procedure. Your health care provider may also give you more specific instructions. If you have problems or questions, contact your health care provider. What can I expect after the procedure? After the procedure, it is common to have: Pain and discomfort near your rectum, especially while sitting. [place]-colored urine due to small amounts of blood in your urine. A burning feeling while urinating. Blood in your stool (feces) or bleeding from your rectum. Blood in your semen. Follow these instructions at home: Medicines Take ngxj-yyp-fyddzai and prescription medicines only as told by your health care provider. If you were given a sedative during your procedure, it can affect you for several hours. Do not drive or operate machinery until your health care provider says that it is safe. If you were prescribed an antibiotic medicine, take it as told by your health care provider. Do not stop using the antibiotic even if you start to feel better. Activity Return to your normal activities as told by your health care provider. Ask your health care provider what activities are safe for you. Ask your health care provider when it is okay for you to resume sexual activity. You may have to avoid lifting. Ask your health care provider how much you can safely lift. General instructions Drink enough fluid to keep your urine pale yellow. Watch your urine, stool, and semen for new or increased bleeding. Keep all follow-up visits. This is important. Contact a health care provider if: You have any of the following: ?Blood clots in your urine or stool. ?Blood in your urine more than 2 weeks after the procedure. ?Blood in your semen more than 2 months after the procedure. ?New or increased bleeding in your urine, stool, or semen. ?Severe pain in your abdomen. Your urine smells bad or unusual. You have trouble urinating. Your lower abdomen feels firm. You have problems getting an erection. You have nausea or you vomit. Get help right away if: You have a fever or chills. This could be a sign of infection. You have bright red urine. You have severe pain that does not get better with medicine. You cannot urinate. Summary After this procedure, it is common to have pain and discomfort around your rectum, especially while sitting. You may have blood in your urine and stool after the procedure. It is common to have blood in your semen after this procedure. Get help right away if you have a fever or chills. This could be a sign of infection. This information is not intended to replace advice given to you by your health care provider. Make sure you discuss any questions you have with your health care provider. Document Revised: 12/10/2021 Document Reviewed: 12/10/2021 [employer] Patient Education 2023 Mob[employer]y. 02/23/2025 08:23:36 Transrectal Ultrasound-Guided Prostate Biopsy Transrectal Ultrasound-Guided Prostate Biopsy A transrectal ultrasound-guided prostate biopsy is a procedure to remove samples of prostate tissue for testing. The prostate is a walnut-sized gland that is located below the bladder and in front of the rectum. During this procedure, a small device (probe) is lubricated and put inside the rectum. The probe sends out sound waves that make a picture of the prostate and surrounding tissues (transrectal ultrasound). The images are used to help guide the process of removing the samples. The samples are taken to a lab to be checked for prostate cancer. This procedure is usually done to evaluate the prostate gland of men who have raised (elevated) levels of prostate-specific antigen (PSA), which can be a sign of prostate cancer or prostate enlargement related to aging (benign prostatic hyperplasia, or BPH). Tell a health care provider about: Any allergies you have. All medicines you are taking, including vitamins, herbs, eye drops, creams, and kdwu-rch-zoccywi medicines. Any problems you or family members have had with anesthetic medicines. Any bleeding problems you have. Any surgeries you have had. Any medical conditions you have. Any prostate infections you have had. What are the risks? Generally, this is a safe procedure. However, problems may occur, including: Prostate infection. Bleeding from the rectum. Blood in the urine. Allergic reactions to medicines. Damage to surrounding structures such as blood vessels, organs, or muscles. Difficulty passing urine. Nerve damage. This is usually temporary. What happens before the procedure? Medicines Ask your health care provider about: Changing or stopping your regular medicines. This is especially important if you are taking diabetes medicines or blood thinners. Taking medicines such as aspirin and ibuprofen. These medicines can thin your blood. Do not take these medicines unless your health care provider tells you to take them. Taking luby-jxq-qkuxvhw medicines, vitamins, herbs, and supplements. General instructions Follow instructions from your health care provider about eating and drinking. In most instances, you will not need to stop eating and drinking completely before the procedure. You will be given an enema. During an enema, a liquid is injected into your rectum to clear out waste. You may have a blood or urine sample taken. Ask your health care provider what steps will be taken to help prevent infection. These steps may include: ?Washing skin with a germ-killing soap. ?Taking antibiotic medicine. If you will be going home right after the procedure, plan to have a responsible adult: ?Take you home from the hospital or clinic. You will not be allowed to drive. ?Care for you for the time you are told. What happens during the procedure? An IV will be inserted into one of your veins. You will be given one or both of the following: ?A medicine to help you relax (sedative). ?A medicine to numb the area (local anesthetic). You will be placed on your left side, and your knees will be bent toward your chest. A probe with lubricated gel will be placed into your rectum, and images will be taken of your prostate and surrounding structures. Numbing medicine will be injected into your prostate. A biopsy needle will be inserted through your rectum or perineum and guided to your prostate using the ultrasound images. Prostate tissue samples will be removed, and the needle and probe will then be removed. The biopsy samples will be sent to a lab to be tested. The procedure may vary among health care providers and hospitals. What happens after the procedure? Your blood pressure, heart rate, breathing rate, and blood oxygen level will be monitored until you leave the hospital or clinic. You may have some discomfort in the rectal area. You will be given pain medicine as needed. If you were given a sedative during the procedure, it can affect you for several hours. Do not drive or operate machinery until your health care provider says that it is safe. It is up to you to get the results of your procedure. Ask your health care provider, or the department that is doing the procedure, when your results will be ready. Keep all follow-up visits. This is important. Summary A transrectal ultrasound-guided biopsy removes samples of tissue from your prostate using ultrasound-guided sound waves to help guide the process. This procedure is usually done to evaluate the prostate gland of men who have raised (elevated) levels of prostate-specific antigen (PSA), which can be a sign of prostate cancer or prostate enlargement related to aging. After your procedure, you may feel some discomfort in the rectal area. Plan to have a responsible adult take you home from the hospital or clinic, and follow up with your health care provider for your results. This information is not intended to replace advice given to you by your health care provider. Make sure you discuss any questions you have with your health care provider. Document Revised: 12/10/2021 Document Reviewed: 12/10/2021 [employer] Patient Education 2023 Mobilligy. Follow Up Care 07/21/2024 08:28:19 With:SCOTTY VO, Devendra Romero, URL Address: [address] [place] [id number] When: Unknown [facility] 02-23-2025 Note Patient Education Oncology Transrectal Ultrasound-Guided Prostate Biopsy, Care After The following information offers guidance on how to care for yourself after your procedure. Your health care provider may also give you more specific instructions. If you have problems or questions, contact your health care provider. What can I expect after the procedure? After the procedure, it is common to have: ??? Pain and discomfort near your rectum, especially while sitting. ??? [place]-colored urine due to small amounts of blood in your urine. ??? A burning feeling while urinating. ??? Blood in your stool (feces) or bleeding from your rectum. ??? Blood in your semen. Follow these instructions at home: Medicines ??? Take zsex-qut-kwdbevr and prescription medicines only as told by your health care provider. ??? If you were given a sedative during your procedure, it can affect you for several hours. Do not drive or operate machinery until your health care provider says that it is safe. ??? If you were prescribed an antibiotic medicine, take it as told by your health care provider. Do not stop using the antibiotic even if you start to feel better. Activity ??? Return to your normal activities as told by your health care provider. Ask your health care provider what activities are safe for you. ??? Ask your health care provider when it is okay for you to resume sexual activity. ??? You may have to avoid lifting. Ask your health care provider how much you can safely lift. General instructions ??? Drink enough fluid to keep your urine pale yellow. ??? Watch your urine, stool, and semen for new or increased bleeding. ??? Keep all follow-up visits. This is important. Contact a health care provider if: ??? You have any of the following: ? Blood clots in your urine or stool. ? Blood in your urine more than 2 weeks after the procedure. ? Blood in your semen more than 2 months after the procedure. ? New or increased bleeding in your urine, stool, or semen. ? Severe pain in your abdomen. ??? Your urine smells bad or unusual. ??? You have trouble urinating. ??? Your lower abdomen feels firm. ??? You have problems getting an erection. ??? You have nausea or you vomit. Get help right away if: ??? You have a fever or chills. This could be a sign of infection. ??? You have bright red urine. ??? You have severe pain that does not get better with medicine. ??? You cannot urinate. Summary ??? After this procedure, it is common to have pain and discomfort around your rectum, especially while sitting. ??? You may have blood in your urine and stool after the procedure. ??? It is common to have blood in your semen after this procedure. ??? Get help right away if you have a fever or chills. This could be a sign of infection. This information is not intended to replace advice given to you by your health care provider. Make sure you discuss any questions you have with your health care provider. Document Revised: 12/10/2021 Document Reviewed: 12/10/2021 [employer] Patient Education ? 2023 Mobilligy. Transrectal Ultrasound-Guided Prostate Biopsy A transrectal ultrasound-guided prostate biopsy is a procedure to remove samples of prostate tissue for testing. The prostate is a walnut-sized gland that is located below the bladder and in front of the rectum. During this procedure, a small device (probe) is lubricated and put inside the rectum. The probe sends out sound waves that make a picture of the prostate and surrounding tissues (transrectal ultrasound). The images are used to help guide the process of removing the samples. The samples are taken to a lab to be checked for prostate cancer. This procedure is usually done to evaluate the prostate gland of men who have raised (elevated) levels of prostate-specific antigen (PSA), which can be a sign of prostate cancer or prostate enlargement related to aging (benign prostatic hyperplasia, or BPH). Tell a health care provider about: ??? Any allergies you have. ??? All medicines you are taking, including vitamins, herbs, eye drops, creams, and pdzw-bty-wpbzhyl medicines. ??? Any problems you or family members have had with anesthetic medicines. ??? Any bleeding problems you have. ??? Any surgeries you have had. ??? Any medical conditions you have. ??? Any prostate infections you have had. What are the risks? Generally, this is a safe procedure. However, problems may occur, including: ??? Prostate infection. ??? Bleeding from the rectum. ??? Blood in the urine. ??? Allergic reactions to medicines. ??? Damage to surrounding structures such as blood vessels, organs, or muscles. ??? Difficulty passing urine. ??? Nerve damage. This is usually temporary. What happens before the procedure? Medicines Ask your health care provider about: ??? Changing or stopping your regular medicines. This is especial (more content not included)... [facility] 07-21-2024 Hospital Discharg e instructions Patient Education 07/21/2024 08:23:52 Prostate Cancer Prostate Cancer The prostate is a small gland that produces fluid that makes up semen (seminal fluid). It is located below the bladder in men, in front of the rectum. Prostate cancer is the abnormal growth of cells in the prostate gland. What are the causes? The exact cause of this condition is not known. What increases the risk? You are more likely to develop this condition if: You are 65 years of age or older. You have a family history of prostate cancer. You have a family history of breast and ovarian cancer. You have genes that are passed from parent to child (inherited), such as BRCA1 and BRCA2. You have Ramírez syndrome. men and men of descent are diagnosed with prostate cancer at higher rates than other men. The reasons for this are not well understood and are likely due to a combination of genetic and environmental factors. What are the signs or symptoms? Symptoms of this condition include: Problems with urination. This may include: ?A weak or interrupted flow of urine. ?Trouble starting or stopping urination. ?Trouble emptying the bladder all the way. ?The need to urinate more often, especially at night. Blood in urine or semen. Persistent pain or discomfort in the lower back, lower abdomen, or hips. Trouble getting an erection. Weakness or numbness in the legs or feet. How is this diagnosed? This condition can be diagnosed with: A digital rectal exam. For this exam, a health care provider inserts a gloved finger into the rectum to feel the prostate gland. A blood test called a prostate-specific antigen (PSA) test. A procedure in which a sample of tissue is taken from the prostate and checked under a microscope (prostate biopsy). An imaging test called transrectal ultrasonography. Once the condition is diagnosed, tests will be done to determine how far the cancer has spread. This is called staging the cancer. Staging may involve imaging tests, such as a bone scan, CT scan, PET scan, or MRI. Stages of prostate cancer The stages of prostate cancer are as follows: Stage 1 (I). At this stage, the cancer is found in the prostate only. The cancer is not visible on imaging tests, and it is usually found by accident, such as during prostate surgery. Stage 2 (II). At this stage, the cancer is more advanced than it is in stage 1, but the cancer has not spread outside the prostate. Stage 3 (III). At this stage, the cancer has spread beyond the outer layer of the prostate to nearby tissues. The cancer may be found in the seminal vesicles, which are near the bladder and the prostate. Stage 4 (IV). At this stage, the cancer has spread to other parts of the body, such as the lymph nodes, bones, bladder, rectum, liver, or lungs. Prostate cancer grading Prostate cancer is also graded according to how the cancer cells look under a microscope. This is called the Wheaton score and the total score can range from 6 10, indicating how likely it is that the cancer will spread (metastasize) to other parts of the body. The higher the score, the greater the likelihood that the cancer will spread. Wheaton 6 or lower: This indicates that the cancer cells look similar to normal prostate cells (well differentiated). Wheaton 7: This indicates that the cancer cells look somewhat similar to normal prostate cells (moderately differentiated). Andria 8, 9, or 10: This indicates that the cancer cells look very different than normal prostate cells (poorly differentiated). How is this treated? Treatment for this condition depends on several factors, including the stage of the cancer, your age, personal preferences, and your overall health. Talk with your health care provider about treatment options that are recommended for you. Common treatments include: Observation for early stage prostate cancer (active surveillance). This involves having exams, blood tests, and in some cases, more biopsies. For some men, this is the only treatment needed. Surgery. Types of surgeries include: ?Open surgery (radical prostatectomy). In this surgery, a larger incision is made to remove the prostate. ?A laparoscopic radical prostatectomy. This is a surgery to remove the prostate and lymph nodes through several small incisions. It is often referred to as a minimally invasive surgery. ?A robotic radical prostatectomy. This is laparoscopic surgery to remove the prostate and lymph nodes with the help of robotic arms that are controlled by the surgeon. ?Cryoablation. This is surgery to freeze and destroy cancer cells. Radiation treatment. Types of radiation treatment include: ?External beam radiation. This type aims beams of radiation from outside the body at the prostate to destroy cancerous cells. ?Brachytherapy. This type uses radioactive needles, seeds, wires, or tubes that are implanted into the prostate gland. Like external beam radiation, brachytherapy destroys cancerous cells. An advantage is that this type of radiation limits the damage to surrounding tissue and has fewer side effects. Chemotherapy. This treatment kills cancer cells or stops them from multiplying. It kills both cancer cells and normal cells. Targeted therapy. This treatment uses medicines to kill cancer cells without damaging normal cells. Hormone treatment. This treatment involves taking medicines that act on testosterone, one of the male hormones, by: ?Stopping your body from producing testosterone. ?Blocking testosterone from reaching cancer cells. Follow these instructions at home: Lifestyle Do not use any products that contain nicotine or tobacco. These products include cigarettes, chewing tobacco, and vaping devices, such as e-cigarettes. If you need help quitting, ask your health care provider. Eat a healthy diet. To do this: ?Eat foods that are high in fiber. These include beans, whole grains, and fresh fruits and vegetables. ?Limit foods that are high in fat and sugar. These include fried or sweet foods. Treatment for prostate cancer may affect sexual function. If you have a partner, continue to have intimate moments. This may include touching, holding, hugging, and caressing your partner. Get plenty of sleep. Consider joining a support group for men who have prostate cancer. Meeting with a support group may help you learn to manage the stress of having cancer. General instructions Take xuso-jyk-cydeedz and prescription medicines only as told by your health care provider. If you have to go to the hospital, notify your cancer specialist (oncologist). Keep all follow-up visits. This is important. Where to find more information [place] [employer]: www.cancer.org [place] [employer]: www.cancer.net National Cancer [place]: www.cancer.gov Contact a health care provider if: You have new or increasing trouble urinating. You have new or increasing blood in your urine. You have new or increasing pain in your hips, back, or chest. Get help right away if: You have weakness or numbness in your legs. You cannot control urination or your bowel movements (incontinence). You have chills or a fever. Summary The prostate is a small gland that is involved in the production of semen. It is located below a man's bladder, in front of the rectum. Prostate cancer is the abnormal growth of cells in the prostate gland. Treatment for this condition depends on the stage of the cancer, your age, personal preferences, and your overall health. Talk with your health care provider about treatment options that are recommended for you. Consider joining a support group for men who have prostate cancer. Meeting with a support group may help you learn to manage the stress of having cancer. This information is not intended to replace advice given to you by your health care provider. Make sure you discuss any questions you have with your health care provider. Document Revised: 09/12/2021 Document Reviewed: 09/12/2021 [employer] Patient Education 2023 [employer]. Follow Up Care 02/04/2024 16:10:52 With:SCOTTY VO, Devendra Romero, URL Address: [facility] [address], [place] [address]- When: Unknown [facility] 07-21-2024 Note Patient Education Oncology Prostate Cancer The prostate is a small gland that produces fluid that makes up semen (seminal fluid). It is located below the bladder in men, in front of the rectum. Prostate cancer is the abnormal growth of cells in the prostate gland. What are the causes? The exact cause of this condition is not known. What increases the risk? You are more likely to develop this condition if: ??? You are 65 years of age or older. ??? You have a family history of prostate cancer. ??? You have a family history of breast and ovarian cancer. ??? You have genes that are passed from parent to child (inherited), such as BRCA1 and BRCA2. ??? You have Ramírez syndrome. men and men of descent are diagnosed with prostate cancer at higher rates than other men. The reasons for this are not well understood and are likely due to a combination of genetic and environmental factors. What are the signs or symptoms? Symptoms of this condition include: ??? Problems with urination. This may include: ? A weak or interrupted flow of urine. ? Trouble starting or stopping urination. ? Trouble emptying the bladder all the way. ? The need to urinate more often, especially at night. ??? Blood in urine or semen. ??? Persistent pain or discomfort in the lower back, lower abdomen, or hips. ??? Trouble getting an erection. ??? Weakness or numbness in the legs or feet. How is this diagnosed? This condition can be diagnosed with: ??? A digital rectal exam. For this exam, a health care provider inserts a gloved finger into the rectum to feel the prostate gland. ??? A blood test called a prostate-specific antigen (PSA) test. ??? A procedure in which a sample of tissue is taken from the prostate and checked under a microscope (prostate biopsy). ??? An imaging test called transrectal ultrasonography. Once the condition is diagnosed, tests will be done to determine how far the cancer has spread. This is called staging the cancer. Staging may involve imaging tests, such as a bone scan, CT scan, PET scan, or MRI. Stages of prostate cancer The stages of prostate cancer are as follows: ??? Stage 1 (I). At this stage, the cancer is found in the prostate only. The cancer is not visible on imaging tests, and it is usually found by accident, such as during prostate surgery. ??? Stage 2 (II). At this stage, the cancer is more advanced than it is in stage 1, but the cancer has not spread outside the prostate. ??? Stage 3 (III). At this stage, the cancer has spread beyond the outer layer of the prostate to nearby tissues. The cancer may be found in the seminal vesicles, which are near the bladder and the prostate. ??? Stage 4 (IV). At this stage, the cancer has spread to other parts of the body, such as the lymph nodes, bones, bladder, rectum, liver, or lungs. Prostate cancer grading Prostate cancer is also graded according to how the cancer cells look under a microscope. This is called the Wheaton score and the total score can range from 6?10, indicating how likely it is that the cancer will spread (metastasize) to other parts of the body. The higher the score, the greater the likelihood that the cancer will spread. ??? Wheaton 6 or lower: This indicates that the cancer cells look similar to normal prostate cells (well differentiated). ??? Andria 7: This indicates that the cancer cells look somewhat similar to normal prostate cells (moderately differentiated). ??? Wheaton 8, 9, or 10: This indicates that the cancer cells look very different than normal prostate cells (poorly differentiated). How is this treated? Treatment for this condition depends on several factors, including the stage of the cancer, your age, personal preferences, and your overall health. Talk with your health care provider about treatment options that are recommended for you. Common treatments include: ??? Observation for early stage prostate cancer (active surveillance). This involves having exams, blood tests, and in some cases, more biopsies. For some men, this is the only treatment needed. ??? Surgery. Types of surgeries include: ? Open surgery (radical prostatectomy). In this surgery, a larger incision is made to remove the prostate. ? A laparoscopic radical prostatectomy. This is a surgery to remove the prostate and lymph nodes through several small incisions. It is often referred to as a minimally invasive surgery. ? A robotic radical prostatectomy. This is laparoscopic surgery to remove the prostate and lymph nodes with the help of robotic arms that are controlled by the surgeon. ? Cryoablation. This is surgery to freeze and destroy cancer cells. ??? Radiation treatment. Types of radiation treatment include: ? External beam radiation. This type aims beams of radiation from outside the body at the prostate to destroy cancerous cells. ? Brachytherapy. This type uses radioactive needles, seeds, wires, o (more content not included)... [facility] 02-04-2024 Hospital Discharg e instructions Patient Education 02/04/2024 16:00:38 Prostate Cancer Prostate Cancer The prostate is a small gland that produces fluid that makes up semen (seminal fluid). It is located below the bladder in men, in front of the rectum. Prostate cancer is the abnormal growth of cells in the prostate gland. What are the causes? The exact cause of this condition is not known. What increases the risk? You are more likely to develop this condition if: You are 65 years of age or older. You have a family history of prostate cancer. You have a family history of breast and ovarian cancer. You have genes that are passed from parent to child (inherited), such as BRCA1 and BRCA2. You have Ramírez syndrome. men and men of descent are diagnosed with prostate cancer at higher rates than other men. The reasons for this are not well understood and are likely due to a combination of genetic and environmental factors. What are the signs or symptoms? Symptoms of this condition include: Problems with urination. This may include: ?A weak or interrupted flow of urine. ?Trouble starting or stopping urination. ?Trouble emptying the bladder all the way. ?The need to urinate more often, especially at night. Blood in urine or semen. Persistent pain or discomfort in the lower back, lower abdomen, or hips. Trouble getting an erection. Weakness or numbness in the legs or feet. How is this diagnosed? This condition can be diagnosed with: A digital rectal exam. For this exam, a health care provider inserts a gloved finger into the rectum to feel the prostate gland. A blood test called a prostate-specific antigen (PSA) test. A procedure in which a sample of tissue is taken from the prostate and checked under a microscope (prostate biopsy). An imaging test called transrectal ultrasonography. Once the condition is diagnosed, tests will be done to determine how far the cancer has spread. This is called staging the cancer. Staging may involve imaging tests, such as a bone scan, CT scan, PET scan, or MRI. Stages of prostate cancer The stages of prostate cancer are as follows: Stage 1 (I). At this stage, the cancer is found in the prostate only. The cancer is not visible on imaging tests, and it is usually found by accident, such as during prostate surgery. Stage 2 (II). At this stage, the cancer is more advanced than it is in stage 1, but the cancer has not spread outside the prostate. Stage 3 (III). At this stage, the cancer has spread beyond the outer layer of the prostate to nearby tissues. The cancer may be found in the seminal vesicles, which are near the bladder and the prostate. Stage 4 (IV). At this stage, the cancer has spread to other parts of the body, such as the lymph nodes, bones, bladder, rectum, liver, or lungs. Prostate cancer grading Prostate cancer is also graded according to how the cancer cells look under a microscope. This is called the Wheaton score and the total score can range from 6 10, indicating how likely it is that the cancer will spread (metastasize) to other parts of the body. The higher the score, the greater the likelihood that the cancer will spread. Andria 6 or lower: This indicates that the cancer cells look similar to normal prostate cells (well differentiated). Wheaton 7: This indicates that the cancer cells look somewhat similar to normal prostate cells (moderately differentiated). Wheaton 8, 9, or 10: This indicates that the cancer cells look very different than normal prostate cells (poorly differentiated). How is this treated? Treatment for this condition depends on several factors, including the stage of the cancer, your age, personal preferences, and your overall health. Talk with your health care provider about treatment options that are recommended for you. Common treatments include: Observation for early stage prostate cancer (active surveillance). This involves having exams, blood tests, and in some cases, more biopsies. For some men, this is the only treatment needed. Surgery. Types of surgeries include: ?Open surgery (radical prostatectomy). In this surgery, a larger incision is made to remove the prostate. ?A laparoscopic radical prostatectomy. This is a surgery to remove the prostate and lymph nodes through several small incisions. It is often referred to as a minimally invasive surgery. ?A robotic radical prostatectomy. This is laparoscopic surgery to remove the prostate and lymph nodes with the help of robotic arms that are controlled by the surgeon. ?Cryoablation. This is surgery to freeze and destroy cancer cells. Radiation treatment. Types of radiation treatment include: ?External beam radiation. This type aims beams of radiation from outside the body at the prostate to destroy cancerous cells. ?Brachytherapy. This type uses radioactive needles, seeds, wires, or tubes that are implanted into the prostate gland. Like external beam radiation, brachytherapy destroys cancerous cells. An advantage is that this type of radiation limits the damage to surrounding tissue and has fewer side effects. Chemotherapy. This treatment kills cancer cells or stops them from multiplying. It kills both cancer cells and normal cells. Targeted therapy. This treatment uses medicines to kill cancer cells without damaging normal cells. Hormone treatment. This treatment involves taking medicines that act on testosterone, one of the male hormones, by: ?Stopping your body from producing testosterone. ?Blocking testosterone from reaching cancer cells. Follow these instructions at home: Lifestyle Do not use any products that contain nicotine or tobacco. These products include cigarettes, chewing tobacco, and vaping devices, such as e-cigarettes. If you need help quitting, ask your health care provider. Eat a healthy diet. To do this: ?Eat foods that are high in fiber. These include beans, whole grains, and fresh fruits and vegetables. ?Limit foods that are high in fat and sugar. These include fried or sweet foods. Treatment for prostate cancer may affect sexual function. If you have a partner, continue to have intimate moments. This may include touching, holding, hugging, and caressing your partner. Get plenty of sleep. Consider joining a support group for men who have prostate cancer. Meeting with a support group may help you learn to manage the stress of having cancer. General instructions Take cvqt-lly-zrefzif and prescription medicines only as told by your health care provider. If you have to go to the hospital, notify your cancer specialist (oncologist). Keep all follow-up visits. This is important. Where to find more information [employer] [employer]: www.cancer.org [place] [employer]: www.cancer.net National Cancer [place]: www.cancer.gov Contact a health care provider if: You have new or increasing trouble urinating. You have new or increasing blood in your urine. You have new or increasing pain in your hips, back, or chest. Get help right away if: You have weakness or numbness in your legs. You cannot control urination or your bowel movements (incontinence). You have chills or a fever. Summary The prostate is a small gland that is involved in the production of semen. It is located below a man's bladder, in front of the rectum. Prostate cancer is the abnormal growth of cells in the prostate gland. Treatment for this condition depends on the stage of the cancer, your age, personal preferences, and your overall health. Talk with your health care provider about treatment options that are recommended for you. Consider joining a support group for men who have prostate cancer. Meeting with a support group may help you learn to manage the stress of having cancer. This information is not intended to replace advice given to you by your health care provider. Make sure you discuss any questions you have with your health care provider. Document Revised: 09/12/2021 Document Reviewed: 09/12/2021 [employer] Patient Education 2022 [employer]. Follow Up Care 01/13/2024 10:34:12 With:SCOTTY VO, Devendra Romero, URL Address: [facility] [address] , [place] [address]- When: Unknown [facility] 02-04-2024 Note Patient Education Oncology Prostate Cancer The prostate is a small gland that produces fluid that makes up semen (seminal fluid). It is located below the bladder in men, in front of the rectum. Prostate cancer is the abnormal growth of cells in the prostate gland. What are the causes? The exact cause of this condition is not known. What increases the risk? You are more likely to develop this condition if: ? You are 65 years of age or older. ? You have a family history of prostate cancer. ? You have a family history of breast and ovarian cancer. ? You have genes that are passed from parent to child (inherited), such as BRCA1 and BRCA2. ? You have Ramírez syndrome. men and men of descent are diagnosed with prostate cancer at higher rates than other men. The reasons for this are not well understood and are likely due to a combination of genetic and environmental factors. What are the signs or symptoms? Symptoms of this condition include: ? Problems with urination. This may include: ? A weak or interrupted flow of urine. ? Trouble starting or stopping urination. ? Trouble emptying the bladder all the way. ? The need to urinate more often, especially at night. ? Blood in urine or semen. ? Persistent pain or discomfort in the lower back, lower abdomen, or hips. ? Trouble getting an erection. ? Weakness or numbness in the legs or feet. How is this diagnosed? This condition can be diagnosed with: ? A digital rectal exam. For this exam, a health care provider inserts a gloved finger into the rectum to feel the prostate gland. ? A blood test called a prostate-specific antigen (PSA) test. ? A procedure in which a sample of tissue is taken from the prostate and checked under a microscope (prostate biopsy). ? An imaging test called transrectal ultrasonography. Once the condition is diagnosed, tests will be done to determine how far the cancer has spread. This is called staging the cancer. Staging may involve imaging tests, such as a bone scan, CT scan, PET scan, or MRI. Stages of prostate cancer The stages of prostate cancer are as follows: ? Stage 1 (I). At this stage, the cancer is found in the prostate only. The cancer is not visible on imaging tests, and it is usually found by accident, such as during prostate surgery. ? Stage 2 (II). At this stage, the cancer is more advanced than it is in stage 1, but the cancer has not spread outside the prostate. ? Stage 3 (III). At this stage, the cancer has spread beyond the outer layer of the prostate to nearby tissues. The cancer may be found in the seminal vesicles, which are near the bladder and the prostate. ? Stage 4 (IV). At this stage, the cancer has spread to other parts of the body, such as the lymph nodes, bones, bladder, rectum, liver, or lungs. Prostate cancer grading Prostate cancer is also graded according to how the cancer cells look under a microscope. This is called the Wheaton score and the total score can range from 6?10, indicating how likely it is that the cancer will spread (metastasize) to other parts of the body. The higher the score, the greater the likelihood that the cancer will spread. ? Andria 6 or lower: This indicates that the cancer cells look similar to normal prostate cells (well differentiated). ? Wheaton 7: This indicates that the cancer cells look somewhat similar to normal prostate cells (moderately differentiated). ? Andria 8, 9, or 10: This indicates that the cancer cells look very different than normal prostate cells (poorly differentiated). How is this treated? Treatment for this condition depends on several factors, including the stage of the cancer, your age, personal preferences, and your overall health. Talk with your health care provider about treatment options that are recommended for you. Common treatments include: ? Observation for early stage prostate cancer (active surveillance). This involves having exams, blood tests, and in some cases, more biopsies. For some men, this is the only treatment needed. ? Surgery. Types of surgeries include: ? Open surgery (radical prostatectomy). In this surgery, a larger incision is made to remove the prostate. ? A laparoscopic radical prostatectomy. This is a surgery to remove the prostate and lymph nodes through several small incisions. It is often referred to as a minimally invasive surgery. ? A robotic radical prostatectomy. This is laparoscopic surgery to remove the prostate and lymph nodes with the help of robotic arms that are controlled by the surgeon. ? Cryoablation. This is surgery to freeze and destroy cancer cells. ? Radiation treatment. Types of radiation treatment include: ? External beam radiation. This type aims beams of radiation from outside the body at the prostate to destroy cancerous cells. ? Brachytherapy. This type uses radioactive needles, seeds, wires, or tubes that are implanted into the prostate gla (more content not included)... [facility] 11-05-2023 Hospital Discharg e instructions Patient Education [...] Follow these instructions at home: Medicines Take nhmh-xhh-ukpubtw and prescription medicines only as told by your health care provider. Ask your health care provider if the medicine prescribed to you: ?Requires you to avoid driving or using heavy machinery. ?Can cause constipation. You may need to take these actions to prevent or treat constipation: ?Take yymb-afy-ajrzqoy or prescription medicines. ?Eat foods that are [...] provider. Document Revised: 01/06/2020 Document Reviewed: 01/06/2020 [employer] Patient Education 2022 [employer]. Follow Up Care 09/10/2023 14:40:10 With:SCOTTY VO, Devendra Romero, URL Address: [facility] [address], [place] [address]- When: Unknown [facility] 11-05-2023 Evaluation + Plan note Diagnostic Tests PendingPSA Total 11/05/23PSA Total 11/05/23 [facility] 07-14-2023 Evaluation note Encounter Date [...] (ICD-10 - I10) BP controlled, continue Rx [facility] Other 01-02-2024 Hospital Discharge instructions Patient Education [...] Follow these instructions at home: Medicines Take vpwt-pgw-bomkzdq and prescription medicines only as told by your health care provider. Ask your health care provider if the medicine prescribed to you: ?Requires you to avoid driving or using heavy machinery. ?Can cause constipation. You may need to take these actions to prevent or treat constipation: ?Take csjt-pzq-xfqnovn or prescription medicines. ?Eat foods that are [...] provider. Document Revised: 01/06/2020 Document Reviewed: 01/06/2020 [employer] Patient Education 2022 [employer]y. 07/01/2023 14:44:58 Transurethral Resection of the Prostate [...] including vitamins, herbs, eye drops, creams, and lghn-qgg-lzywqse medicines. Any problems you or family members [...] provider tells you to take them. Taking retx-yxt-iwdoxwu medicines, vitamins, herbs, and supplements. Surgery safety [...] provider. Document Revised: 03/12/2022 Document Reviewed: 03/12/2022 [employer] Patient Education 2022 [employer]. 07/01/2023 14:20:36 Benign Prostatic Hyperplasia Benign Prostatic [...] urethra. Follow these instructions at home: Take xyre-hga-zpmtvmu and prescription medicines only as told by [...] provider. Document Revised: 01/02/2022 Document Reviewed: 01/02/2022 [employer] Patient Education 2022 [employer]. Follow Up Care 06/04/2023 14:21:38 With:SCOTTY VO, Devendra Romero, URL Address: [facility] [address] , [place] [address]- When: Unknown Comments:Schedule Cysto/Litholapaxy/TURP [facility] 12-06-2023 Hospital Discharge instructions Patient [...] Follow these instructions at home: Medicines Take pifk-srp-hviyffp and prescription medicines only as told by your health care provider. Ask your health care provider if the medicine prescribed to you: ?Requires you to avoid driving or using heavy machinery. ?Can cause constipation. You may need to take these actions to prevent or treat constipation: ?Take uomw-mgq-oqrxgnb or prescription medicines. ?Eat foods that are [...] to find more information [facility] ([facility]): www.[facility].org Contact a health care provider if [...] provider. Document Revised: 01/06/2020 Document Reviewed: 01/06/2020 [employer] Patient Education 2022 [employer]. 06/04/2023 14:11:49 Cystoscopy Cystoscopy Cystoscopy is a [...] including vitamins, herbs, eye drops, creams, and ange-mdb-mhydgzu medicines. Any problems you or family members [...] provider tells you to take them. Taking uogj-cms-uvmdarh medicines, vitamins, herbs, and supplements. Tests You [...] Follow these instructions at home: Medicines Take gybe-amj-bpisutq and prescription medicines only as told by [...] provider. Document Revised: 02/27/2022 Document Reviewed: 01/26/2021 [employer] Patient Education 2022 [employer]illigy. Follow Up Care 03/04/2023 10:15:34 With:SCOTTY VO, Devendra Romero, URL Address: [facility] [address] , [place] [address]- When: Unknown [facility] 12-04-2023 Evaluation note* Encounter Date [...] I10) Controlled, continue lisinopril 10 mg daily [facility] Other 09-25-2023 Evaluation note* Encounter Date Diagnosis Assessment Notes Treatment Notes Treatment Clinical Notes Feb, Type 2 diabetes mellitus without complication, without long-term current use of insulin (ICD-10 - E11.9) Feb, Essential (primary) hypertension (ICD-10 - I10) [facility] Other 08-31-2023 Evaluation note* Encounter Date Diagnosis [...] Refer to urology, he is currently asymptomatic [facility] Other 07-31-2023 Evaluation note* Encounter Date Diagnosis [...] urologist for further evaluation to include cystoscopy [employer] [employer] Other Evaluation + Plan note Future Appointments Appointment Date:07/01/2023 01:45:00 PM Scheduled Provider:Devendra MINER MD [facility] Appointment Type:URO Procedure 15 min [facility] evaluation + Plan note Future Appointments Appointment Date:10/20/2023 09:00:00 AM Scheduled Provider: Location:[facility] [place] Appointment Type:URO Nurse Visit Appointment Date:11/05/2023 03:00:00 PM Scheduled Provider:Devendra MINER MD Location:[facility] [place] Appointment Type:URO Office Visit [facility] evaluation + Plan note Future Appointments Appointment Date:11/05/2023 03:00:00 PM Scheduled Provider:Devendra MINER MD Location:[facility] [place] Appointment Type:URO Office Visit [facility] evaluation + Plan note Future Appointments Appointment Date:07/14/2024 08:00:00 AM Scheduled Provider: Location:[facility] Appointment Type:URO Nurse Visit Appointment Date:07/21/2024 08:00:00 AM Scheduled Provider:Devendra MINER MD Location:[facility] [place] Appointment Type:URO Office Visit Diagnostic Tests Pending * PSA Total 02/04/24 [facility] [place] evaluation + Plan note Future Appointments Appointment Date:07/21/2024 08:00:00 AM Scheduled Provider:Devendra MINER MD Location:[facility] Appointment Type:URO Office Visit [facility] [place] Evaluation + Plan note Future Appointments Appointment Date:02/23/2025 08:00:00 AM Scheduled Provider:Devendra MINER MD Location[facility] Appointment Type:URO Office Visit Diagnostic Tests Pending * PSA Total 07/21/24 [facility] evaluation + Plan note Future Appointments Appointment Date:02/23/2025 08:00:00 AM Scheduled Provider:Devendra MINER MD Location[facility] Appointment Type:URO Office Visit [facility] [place] evaluation + Plan note Future Appointments Appointment Date:03/30/2025 08:45:00 AM Scheduled Provider:Devendra MINER MD Location[facility] Appointment Type:URO Office Visit [facility] [place] evaluation noteNo assessment information [facility] Work Phone: evalufzdyf noteNo InformationNoSelect [facility]ty [facility] [employer] Other evaluation note* Diagnosis Onset Date Resolution Status Bladder calculus acute Essential (primary) hypertension acute [id number] [facility] Work Phone: evaluation note* Diagnosis Onset Date Resolution Status [id number] [facility] Work Phone: evaluation note* Diagnosis Onset Date Resolution Status Bladder calculus acute Essential (primary) hypertension acute Right arm pain acute Type 2 diabetes mellitus acu te [facility] Work Phone: Evaluation note* Diagnosis Onset Date Resolution Status Type 2 diabetes mellitus acu te Encounter for annual wellnes s exam in Medicare patient noneactive [facility] Work Phone: History general Narrative - Reported* Type Description Date Medical History Hypertension Medical History type II diabetes Surgical History R knee surgery [facility] Other History of Present illness Narrative* spends time by [place] * wt. similar * hgm 90--150 range..tests 1--2 a day * no sob/ no chest pains * agent 10--14 basa u basa/ plus orals * no hypos [facility] Work Phone: History of Present illness Narrative* spends time by [place] home * wt. similar * hgm 90--150 range. per pt. .tests 1--2 a day * no sob/ no chest pains * agent 10--14 basag u / plus orals * no hypos * had eye care 2020 * overall feels fine * he again declines going on lipid lowering rx [facility] Work Phone: History of Present illness Narrative* [...] aids but has not got them yet. [facility] 102 DO Work Phone: History of Present [...] aids but has not got them yet. [facility] 102 DO Work Phone: History of Present [...] aids but has not got them yet. [employer] Work Phone: History of Present illness Narrative* cards appt. 2021 dr majano ([facility]) * r. arm issue resolved * hgm fbs 140--150s..seems a little higher to him * takes meds fine * no sob no cjhest pains * no hypos [facility] Work Phone: History of Present illness Narrative* [...] sjhot * eye dr up to date [employer] Work Phone: Hospital course Narrative No data available for this section [facility] [place] Hospital Discharge instructions No data available for this section [facility] [place] Hospital Discharge instructions Additional Instructions DISCHARGE INSTRUCTIONS [...] will call for next step [ ] [facility] Work Phone: Progress note No data available for this section [facility] [place] Reason for referral (narrative)No reason for referral information availablePromedica Bay [facility] Hospital Work Phone: Chief Complaint here for dm/ bp followuphere [...] for Visit Bladder calculus Essential (primary) hypertension [id number] Chief Complaint Bladder Stone, BPH w / Obstruction 3 month follow up Reason for Visit [id number] Chief Complaint Bladder Stone, BPH w / Obstruction 3 month follow up elevated psa Reason for Visit Bladder calculus Essential (primary) hypertension Right arm pain Type 2 diabetes mellitus Chief Complaint 3 month follow up elevated psa Unknown Reason for Visit Bladder calculus Essential (primary) hypertension Right arm pain Type 2 diabetes mellitus Chief Complaint Unknown 3-4 month follow up Reason for Visit Type 2 diabetes katie itus Encounter for annual wellness exam in Medicare patient Chief Complaint Unknown 3-4 month follow up Z12.5 E11.9 Z79.4 Reason for Visit Type 2 diabetes katie itus Encounter for annual wellness exam in Medicare patient Chief Complaint Admit Date 3 month Follow up/ DM July 16, 2024 8:07am Chief Complaint Admit Date 4 months November 08, 2024 7:58a m Chief Complaint Admit Date 4 months March 07, 2025 8:28am Advance Directives Advance Directive Response Recorded Date/ Time Advance Directives No December 07 10:04am Advance Directive Response Recorded Date/ Time Advance Directives No December 07 9:04am Summary Purpose Family History Relationship Condition Age at Onset Recorded Date/T [...] calculi (N21 .0) Referral Organization [facility] Referring Provider First Name Светлана Referring Provider Last Name Mast Referring Provider Specialty Family Prac jyothi Referred Organization [facility] Referred Address [address],[place],[address] Referred Provider Specialty Urology Referral Priority Routine [...] December 25, 2023 End: December 25, 2023 Team Status: Inactive Member Role Status Dates Devendra Miner MD Attending Provider Active St art: January 26, 2024 End: January 26, 2024 Team Status: Inactive Member Role Status Dates Светлана Mast , DO Primary Care Provide r, Attending Provider Active Start: April 12, 2024 End: April 12, 2024 Team Status: Inactive Member Role Status Dates Светлана Mast , DO Primary Care Provide r, Attending Provider Active Start: April 14, 2024 End: April 14, 2024 Team Status: Inactive Member Role Status Dates Светлана Mast , DO Primary Care Provide r, Attending Provider Active Start: July 16, 2024 End: July 16, 2024 Team Status: Inactive Member Role Status Dates Светлана Mast , DO Primary Care Provide r, Attending Provider Active Start: November 08, 2024 End: November 08, 2024 Team Status: Inactive Member Role Status Dates Светлана Mast , DO Primary Care Provider Active Star t: March 07, 2025 End: March 07, 2025 Светлана Mast , DO Attending Provider Active Start: March 07, 2025 End: March 07, 2025 Goals (unrecognized section and content) Goals may [...] this section No data available for this sectionGoals may be documented in an alternate section No data available for this sectionGoals may be documented in an alternate sectionGoals may be documented in an alternate section No data available for this section No data available for this sectionGoals may be documented in an alternate section No data available for this sectionGoals may be documented in an alternate section No data available for this section No data available for this sectionGoals may be documented in an alternate section (unrecognized sect ion and content) No Status Records FoundNo Status Records FoundNo Status Records FoundNo Status Records FoundNo Status Records FoundNo Status Records FoundNo Status Records FoundNo Status Records Found INFORMATION SOURCE (unrecogn ized section and content) DATE CREATED AUTHOR 06/20/[address] [facility] DATE CREATED AUTHOR AUTHOR'S ORGANIZ ATION 06/21/2022 [employer] DATE CREATED AUTHOR AUTHOR'S ORGANIZ ATION 09/11/2022 [facility] DATE CREATED AUTHOR AUTHOR'S ORGANIZ ATION 10/11/2022 [facility] DATE CREATED AUTHOR AUTHOR'S ORGANIZ ATION 04/16/2024 [facility] DATE CREATED AUTHOR AUTHOR'S ORGANIZ ATION 07/22/2024 [facility] DATE CREATED AUTHOR AUTHOR'S ORGANIZ ATION 02/25/2025 [facility] REASON FOR VISIT (unrecogniz ed section [...] BE BASED ON THE PRIMARY CLINICAL RECORDS. [facility]. provides no warranty or guarantee of the accuracy or completeness of information in this document.
--- NOTE | 2025-03-08 10:30 | ECG_ITS ---
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
[2025-03-08 10:35] LABS: Hematocrit 36.7 % (42.0-54.0); Hemoglobin 12.6 g/dL (14.0-18.0); Immature Granulocytes Abs Auto 0.01 10^3/uL (0.00-0.03); Immature Granulocytes Pct Auto 0.2 % (0.0-0.5); Lymphocytes Absolute Auto 2.2 10^3/uL (1.2-3.8); Mean Corpuscular HGB Conc 34.3 g/dL (29.9-35.2); Mean Corpuscular Hemoglobin 30.7 pg (25.9-34.0); Mean Corpuscular Volume 89.3 fL (80.0-94.0); Platelet Count 179 10^3/uL (150-450); Red Blood Count 4.11 10^6/uL (4.70-6.10); White Blood Count 6.5 10^3/uL (4.0-11.0)
--- NOTE | 2025-03-08 10:39 | PM.PRESUREVA ---
History of Present Illness History of Present Illness Chief complaint: Prostate Cancer Narrative: Patient presents for presurgical testing. Please see HPI from Dr. Miner dated February 23, 2025 Review of Systems ROS Narrative Please see ROS from Dr. Miner dated February 23, 2025. PFSH PFS Medical History (Updated 03/08/25 @ 10:24 by Sofi Kelly NP) Prostate cancer ?C61 - Malignant neoplasm of prostate (ICD-10) Abnormal prostate exam ?R39.89 - Other symptoms and signs involving the genitourinary system (ICD-10) COVID-19 (03/2023) ?U07.1 - COVID-19 (ICD-10) Postoperative nausea and vomiting ?R11.2 - Nausea with vomiting, unspecified (ICD-10) ?Z98.890 - Other specified postprocedural states (ICD-10) Diabetes ?E11.9 - Type 2 diabetes mellitus without complications (ICD-10) Hypertension ?I10 - Essential (primary) hypertension (ICD-10) Elevated PSA ?R97.20 - Elevated prostate specific antigen [PSA] (ICD-10) Hematuria ?R31.9 - Hematuria, unspecified (ICD-10) Bladder stone ?N21.0 - Calculus in bladder (ICD-10) BPH with obstruction/lower urinary tract symptoms ?N40.1 - Benign prostatic hyperplasia with lower urinary tract symptoms (ICD-10) ?N13.8 - Other obstructive and reflux uropathy (ICD-10) Surgical History (Updated 03/03/25 @ 11:15 by Sofi Kelly NP) H/O prostate biopsy (01/26/24) ?Z98.890 - Other specified postprocedural states (ICD-10) H/O cystoscopy (10/16/23) ?Z98.890 - Other specified postprocedural states (ICD-10) H/O eye surgery ?Z98.890 - Other specified postprocedural states (ICD-10) History of colonoscopy ?Z98.890 - Other specified postprocedural states (ICD-10) H/O cystoscopy ?Z98.890 - Other specified postprocedural states (ICD-10) H/O knee surgery ?Z98.890 - Other specified postprocedural states (ICD-10) Family History (Updated 08/14/23 @ 10:14 by Sofi Kelly NP) Other Family history of diabetes mellitus Family history of hypertension Heart disease Social History (Updated 01/26/24 @ 09:06 by Cherie Lopez) Within the past year, how often did you have a drink containing alcohol: never Score interpretation: A score less than 4 is consistent with normal alcohol consumption. Smoking status: Never smoker Non-prescribed substance use: denies use Previous occupational history: retired Highest level of school completed/degree received: Bachelor's degree Meds Home Medications and Allergies Home Medications ?Medication ?Instructions ?Recorded ?Confirmed ?Type aspirin 81 mg tablet,delayed 81 mg PO DAILY 08/14/23 03/08/25 History release (Adult Aspirin Regimen) insulin glargine 100 unit/mL (3 8 unit subcut QPM 08/14/23 03/08/25 History mL) subcutaneous pen (Basaglar KwikPen U-100 Insulin) metformin 500 mg tablet,extended 500 mg PO QID 08/14/23 03/08/25 History release 24 hr repaglinide 1 mg tablet 1 mg PO TID 08/14/23 03/08/25 History tamsulosin 0.4 mg capsule (Flomax) 0.4 mg PO DAILY 08/14/23 03/08/25 History lisinopril 2.5 mg tablet 2.5 mg PO DAILY 03/08/25 03/08/25 History Allergies Allergy/AdvReac Type Severity Reaction Status Date / Time Jkfwumo-KWM-MlC Reductase Allergy Rash Verified 03/08/25 10:02 Inhibitor Sulfa (Sulfonamide Allergy Rash Verified 03/08/25 10:02 Antibiotics) Exam Narrative Exam Narrative: Constitutional: Awake, alert, comfortable, well-appearing, nontoxic, interactive, vital signs as charted Head: Normocephalic, atraumatic Neck: Supple, normal appearance, normal range of motion, no meningeal signs, no lymphadenopathy Respiratory: No respiratory distress, breath sounds clear Cardiovascular: Bradycardic rate and regular rhythm, strong and regular heart tones Abdomen: Nontender, normal bowel sounds, soft, no CVA tenderness Musculoskeletal: Normal gait, no swelling or edema Skin: No rashes or induration, no lesions, only visible skin inspected Neuro: No neurological deficits, normal sensation Psychiatric: Oriented ?3, normal affect Assessment and Plan Assessment and Plan (1) Prostate cancer: Plan TRUS biopsy scheduled with Dr. Miner March 17, 2025.
[2025-03-08 11:03] LABS: INR 1.09; Partial Thromboplastin Time 26.0 sec (22.3-36.2); Prothrombin Time 11.5 sec (9.0-11.6)
[2025-03-08 11:11] LABS: Anion Gap 14.8; Blood Urea Nitrogen 24.0 mg/dL (7.0-18.0); Calcium 9.3 mg/dL (8.5-10.1); Carbon Dioxide 25.5 mmol/L (21.0-32.0); Chloride 105 mmol/L (98-107); Estimated GFR (African America >60 (>=60 mL/min/1.73m^2); Estimated GFR (Non-African Ame 50 (>=60 mL/min/1.73m^2); Glucose 168 mg/dL (74-106); Potassium 4.3 mmol/L (3.5-5.1); Sodium 141 mmol/L (136-145)
== END 2025-03-08 09:35 | disposition home or self-care (01) ==
PROVIDERS: PCP Family Medicine; Visit Provider Urology
DX: Z01.810 Encounter for preprocedural cardiovascular examination (principal); Z01.812 Encounter for preprocedural laboratory examination; Z01.818 Encounter for other preprocedural examination; C61 Malignant neoplasm of prostate
CPT/HCPCS: 80048; 85025; 85610; 85730; 93005; G0463

== ENCOUNTER 2025-03-17 06:37 | Day surgery (SDC) | payer MEDICARE, BC, SELFPAY ==
--- OUTSIDE RECORDS SUMMARY | 2024-02-02 09:30 | XMS_ITS ---
Author Organization Corporate Office Address [address] [place] [address] [address] [place] [address] Care Team Providers Care Electron Microprobe Operator Name Role Phone RODGER GALE, Dr. SOTOMAYOR Primary Care Provider Rolo Edwards MD, Ashok Unavailable [phone] Isidra VO, Dr. Devendra Merchant Unavailab REASON FOR VISIT 1 year follow up Encounters Encounter Location Date Provider Diagnosis 06 [facility] Specialty [address] [place] [address] 02/02/2024 Ashok Edwards Plan Of Treatment Next Appt Details Provider Name:Ashok Edwards , 03/09/2026 01:30:00 PM, [address], [address], [place], [address], Progress Notes * Ashok TOSCANODOB:[birth year] (69 yo M)Acc No.[id number]:02/02/2024 Progress Notes Patient: Ashok VALLEJO Provider: Fela Edwards MD Case Label: Date Of Injury: :1955 A ge:68 Y S ex:Male Date:02/02/2024 [facility] [facility] Pcp:Dr. СВЕТЛАНА SOARES DO Subjective: * Chief Complaints: * 1 . 1 year follow up. * Medical History: Objective: * Vitals: Assessment: Plan: * Treatment: * Care Plan Details* * Electronic signature of Carl Edwards MD, MD on 03/17/2025 at 06:39 AM EDT Sign off status: Pending * Provider: Fela Edwards MD Date: 0 02/02/2024 Generated for Bev garcia/Loly/Cassiusitting on: 0 03/17/2025 06:39 AM EDT
--- OUTSIDE RECORDS SUMMARY | 2024-02-16 07:00 | XMS_ITS ---
Author Organization Corporate Office Address [address] [place] [address] [address] [place] [address] Care Team Providers Care Talcer Name Role Phone RODGER GALE, Dr. SOTOMAYOR Primary Care Provider Rolo Edwards MD, Ashok Unavailable [phone] Isidra VO, Dr. Devendra Merchant Unavailab REASON FOR VISIT 1 year follow up Encounters Encounter Location Date Provider Diagnosis 06 [facility] Specialty [address] [place] [address] 02/16/2024 Ashok Edwards Plan Of Treatment Next Appt Details Provider Name:Ashok Edwards , 03/09/2026 01:30:00 PM, [address], [address], [place], [address], Progress Notes * Ashok TOSCANODOB:[birth year] (69 yo M)Acc No.[id number]:02/16/2024 Progress Notes Patient: Ashok VALLEJO Provider: Fela Edwards MD Case Label: Date Of Injury: :1955 A ge:68 Y S ex:Male Date:02/16/2024 [facility] [facility] Pcp:Dr. СВЕТЛАНА SOARES DO Subjective: * Chief Complaints: * 1 . 1 year follow up. * Medical History: Objective: * Vitals: Assessment: Plan: * Treatment: * Care Plan Details* * Electronic signature of Carl Edwards MD, MD on 03/17/2025 at 06:40 AM EDT Sign off status: Pending * Provider: Fela Edwards MD Date: 0 02/16/2024 Generated for Bev garcia/Loly/Cassiusitting on: 0 03/17/2025 06:40 AM EDT
[2025-03-08 10:22] VITALS: BP 136/71; PULSE 56; TEMP 36.2; O2SAT 97; BMI 29.1
--- OUTSIDE RECORDS SUMMARY | 2025-03-09 09:00 | XMS_ITS ---
Author Organization Corporate Office Address [address] [place] [address] [address] [place] [address] Care Team Providers Care Rn Recovery Name Role Phone RODGER GALE, Dr. SOTOMAYOR Primary Care Provider Ashok Ring MD Unavailable [phone] Isidra VO, Dr. Ramsay Unavailable Unavailab le Allergies Allergen (clinical drug ingredient) Drug/Non Drug Allergy documented on EMR Reaction Allergy Type Onset Date Status pioglitazone Pioglitazone HCl Unknown Drug Allergy Active colesevelam WelChol Unknown Drug Allergy Activ e ezetimibe Zetia Unknown Drug Allergy Active linagliptin Tradjenta Unknown Drug Allergy Activ e Substance with 0-fwgfwpz-6-methylgluta ryl-coenzyme A reductase inhibitor mechanism of action (substance) Statins Unknown Drug Allergy Active Substance with sulfonamide structure and antibacterial mechanism of action (substance) Sulfa Antibiotics Unknown Drug Allergy Active REASON FOR VISIT 1 year follow up: CAD. Medications Medication SIG (Take, Route, Frequency, Duration) Notes Start Date End Date Status Rosuvastatin Calcium 5 MG 1 tablet Orally Once a day at bedtime; Duration: 30 days every other day 02/21/2025 Not-Taking CO-Q 10 [place]-3 Fish Oil Not-Taking metFORMIN HCl ER 500 MG 1 tablet Orally three times a day Active Repaglinide 2 MG 1 tablet 15 to 30 minutes before meals Orally three times a day Active Aspirin 81 MG 1 tablet Orally Once a day 01/30/2022 Active Basaglar KwikPen 100 UNIT/ML 15 units Subcutaneous once a day Active Lisinopril 2.5 MG 1 tablet Orally Once a day; Duration: 30 days 02/21/2025 Active Rosuvastatin Calcium 5 MG 1 tablet Orally Three times a week (Fri and Fri); Duration: 90 days 03/09/2025 Active Social History Tobacco Use: Social History Observation Description Date Details (start date - stop date) Never Smoker NA - NA Smoking Question Answer Notes Are you a: Never Smoker Vital Signs Blood pressure systolic 123 mm Hg 03/09/20 25 Blood pressure diastolic 71 mm Hg 025 Height 69 in 03/09/2025 Weight 195 lbs 03/09/2025 BMI 28.79 kg/m2 03/09/2025 Weight-kg 88.45 kg 03/09/2025 Height-cm 175.26 cm 03/09/2025 Encounters Encounter Location Date Provider Diagnosis 06 [facility] [address] [place] [address] 03/09/2025 Ashok Edwards Atherosclerosis of n ative coronary artery of north fork heart, unspecified whether angina present I25.10 ; Abnormal EKG R94.31 ; Family history of coronary artery disease Z82.49 ; Mixed hyperlipidemia E78.2 ; Essential hypertension I10 and Preop cardiovascular exam Z01.810 Assessments Encounter Date Diagnosis (ICD Code) Assessment Notes Treatment Notes Treatment Clinical Notes Section Notes 03/09/2025 Atherosclerosis of north fork coronary artery of north fork heart, unspecified whether angina present (ICD-10 - I25.10) The patient denies angina, heart failure, syncope. He has some measure of atherosclerotic coronary disease based on elevated CT coronary calcium score. He needs aggressive risk factor modification.He denies cardiovascular symptoms. I have suggested low-dose aspirin and lipid-lowering therapy.. The patient was educated and when to present urgently 03/09/2025 Abnormal EKG (ICD-10 - R94.31) Elevated CT coronary calcium score, CAD risk factors,Stress testing negative for ischemia. Active with no angina, heart failure, syncope. Aggressive risk factor modification. 03/09/2025 Family history of coronary artery disease (ICD-10 - Z82.49) risk factor modification Discussed 03/09/2025 Mixed hyperlipidemia (ICD-10 - E78.2) there is evidence of atherosclerotic CAD. Lipids are not at goal. He is intolerant to multiple agents including multiple statins. I suggest Repatha as tolerated. This was prohibitively expensive. He will start pulsed dose Crestor 5 mg p.o. at at bedtime with 2 every 10 supplement. If tolerated we will check fasting lipids AST in 2 months time. Adverse effects of uncontrolled hyperlipidemia discussed 03/09/2025 Essential hypertension (ICD-10 - I10) Controlled with current medications. Blood pressure had been trending downward with associated lightheadedness. Lisinopril dose was decreased. Blood pressure is becoming less labile and in the normal range. He will follow further and call with an update to see if further adjustments are requiredGoals of therapy discussed. Adverse health effects of uncontrolled hypertension discussed 03/09/2025 Preop cardiovascular exam (ICD-10 - Z01.810) Based on available history and data the patient is an acceptable cardiovascular risk for the anticipated prostate biopsy with MAC anesthesia. It is acceptable for him to hold his aspirin therapy for 1 week prior to the procedure and should start as soon afterwards as thought safe per urology. 03/09/2025 Other The patient was instructed to call for test results. This note was dictated using [employer] Practice Edition 2. The document was proofread, however unrecognized voice recognition cold strip feeder errors may be present. PCP: olivia Blak[place], [place] Dr. Devendra Mei, urology Plan Of Treatment Medication Medication Name Sig Start Date Stop Date Notes Rosuvastatin Calcium 5 MG 1 tablet Orall y Three times a week (Fri and Fri); Duration: 90 days 03/09/2025 Treatment Notes Assessment Notes Atherosclerosis of north fork co ronary artery of north fork heart, unspecified whether angina present The patient denies angina, heart failure , syncope. He has some measure of atherosclerotic coronary disease based on elevated CT coronary calcium score. He needs aggressive risk factor modification.He denies cardiovascular symptoms. I have suggested low-dose aspirin and lipid-lowering therapy.. The patient was educated and when to present urgently Abnormal EKG Elevated CT coronary calcium score, CAD risk factors,Stress testing negative for ischemia. Active with no angina, heart failure, syncope. Aggressive risk factor modification. Family history of coronary artery diseas e risk factor modification Discussed Mixed hyperlipidemia there is evidence o f atherosclerotic CAD. Lipids are not at goal. He is intolerant to multiple agents including multiple statins. I suggest Repatha as tolerated. This was prohibitively expensive. He will start pulsed dose Crestor 5 mg p.o. at at bedtime with 2 every 10 supplement. If tolerated we will check fasting lipids AST in 2 months time. Adverse effects of uncontrolled hyperlipidemia discussed Essential hypertension Controlled with c urrent medications. Blood pressure had been trending downward with associated lightheadedness. Lisinopril dose was decreased. Blood pressure is becoming less labile and in the normal range. He will follow further and call with an update to see if further adjustments are requiredGoals of therapy discussed. Adverse health effects of uncontrolled hypertension discussed Preop cardiovascular exam Based on avail able history and data the patient is an acceptable cardiovascular risk for the anticipated prostate biopsy with MAC anesthesia. It is acceptable for him to hold his aspirin therapy for 1 week prior to the procedure and should start as soon afterwards as thought safe per urology. Other The patient was instructed to call for test results. This note was dictated using [employer] Medical Practice Edition 2. The document was proofread, however unrecognized voice recognition cold strip feeder errors may be present. PCP: Dr.Eric frederick, [place], [place] Dr. Devendra Mei, urology Pending Test Test Name Order Date ALT (SGPT), AST (SGOT) 03/09/2025 Lipid Panel 03/09/2025 Next Appt Details Follow Up: 1 Year, Reason: Provider Name:Ashok Edwards , 03/09/2026 01:30:00 PM, [address] [place] [address], [address], [place], [address], Progress Notes * Ashok TOSCANODOB:[birth year] (69 yo M)Acc No.[id number]:03/09/2025 Progress Notes Patient: Ashok VALLEJO Provider: Fela Edwards MD Case Label: Date Of Injury: :1955 A ge:69 Y S ex:Male Date:03/09/2025 Address[facility] Pcp:Jaylon Guillen Subjective: * Chief Complaints: * 1 year follow up: CAD. * HPI: H PI: Please also see office note 01/30/2023 for additional background data *ECG 03/09 2025 = None. *ECG [place], [place]. = sinus bradycardia with a PAC at 55 bpm. LVH voltage. Nonspecific inferior T wave abnormality. Unchanged. This is my interpretation *ECG 03/09/2024 = sinus rhythm with PACs at 74 bpm. LVH voltage. Nonspecific inferior T wave abnormality. Unchanged. This is my interpretation. *ECG [facility] PST 01/16/2024 = sinus bradycardia 46 bpm. LVH voltage. Nonspecific inferior T wave abnormality. *ECG 01/30/2023 = Sinus rhythm at 67 bpm. LVH voltage. Leftward axis. Nonspecific ST-T wave abnormality. This is my interpretation. Ashok Toscano is a 69-year-old male never smoker who presents today as follow up of e levated CT calcium score and abnormal ECG.. He was seen as a new office consultation January 2022 for this indication. H is daughter is a [facility] pharmacist; Samina Razo . The patient is now retired. 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 His history includes type 2 diabetes mellitus, CKD, hyperlipidemia, as well as an abnormal ECG. He denies a history of past documented CAD but given his elevated CT coronary calcium score, he has at least early atherosclerotic disease. The patient has been intolerant to multiple lipid- lowering drugs including multiple statins which resulted in intolerable myalgias. The patient's father underwenmt CABG in his 60s. -Patient reports abnormal ECG approximately year 1999 evaluated with a stress test which was reportedly normal -CT calcium score September 2021 320.07(left main 0, LAD 130.37, left circumflex 87.16, RCA 100.54). A score of 103 99 is associated with an annual risk of adverse Cardiac events of 1.3%. -Cardiology office visit January 2022 stress testing ordered and PCSK9 inhibitor and aspirin suggested. -TM SE January 2022 EF 68%. Normal wall motion. Above average functional capacity of 9 METS.?No ischemiaat 105% AP MHR I reviewed outside labs 01/16/2024 sodium 138, potassium 5.1, creatinine 1.38, hemoglobin 12.8, platelets 185, 02/03/2023 creatinine 1.31, total cholesterol 202, triglycerides 222, HDL 29, LDL 129. At the time of his January 2023 cardiology follow-up visit, the patient was not taking aspirin and was not taking PCSK9 inhibitor. He wished to consider these suggestions further and discussed them with his daughter who is a pharmacist and at an upcoming visit with a new PCP.The patient chose to start an aspirin but never started Repatha because of financial concerns. Will investigate whether there is a way to help him with cost of medications. the patient W as suggested to trypulsed dose Crestor 5 mg at at bedtime every other day. he has not started this therapy. He wants to wait until after prostate biopsy.Will recheck fasting lipids AST and ALT in March. Patient is anticipating a prostate biopsy under MAC by Dr. Devendra Mei. preoperative risk stratification was required. I was asked that the patient should hold aspirin f.or 1 week prior to the procedure. Patient recently decreased his lisinopril dose to 2.5 mg once daily as he was becoming lightheaded. He brought a log of blood pressures. They are improved but still little labile. He only made the change a few days ago. He will likely need more time for his blood pressure to a culprit to his new antihypertensive therapy. The patient denies exertional anginal chest discomfort, shortness of breath at rest, increased dyspnea exertion, palpitation, presyncope, syncope, PND, orthopnea, edema, new focal neurologic deficits, melena, claudication, falls, severe bleeding. The patient was unaccompanied office today. He is very active on a regular basis. He does yard work and can walk for up to 3 hours behind the mower per session nonstop. He is doing remodeling and finishing a large garage. He is active to workload much greater than 4 metabolic equivalents on a regular basis without angina, heart failure, syncope. His ECG is unchanged. Based on available history and data the patient is an acceptable cardiovascular risk for the anticipated prostate biopsy with MAC anesthesia. It is acceptable for him to hold his aspirin therapy for 1 week prior to the procedure and should start as soon afterwards as thought safe per urology. He will continue his dose of lisinopril and monitor blood pressure and the symptoms and call with an update for possible adjustments. Following his prostate biopsy he will start pulsed dose Crestor 5 mg p.o. at at bedtime. 2 months later if tolerated, he will have fasting lipids AST and ALT and we will adjust therapy as required.The patient is educated on aggressive risk factor modification when to call or present urgently. He can follow-up with cardiology in 1 years time or sooner as required. * Medical History: * Surgical History: D enies Past Surgical History * Hospitalization/Major Diagno stic Procedure: N umbness in arm * Family History: F ather: , diagnosed with Diabetes, Heart & renal disease, hypertensive, with heart failure. M other: , diagnosed with Diabetes, Heart & renal disease, hypertensive, with heart failure. 1 brother(s) , 3 sister(s) - healthy. . 1 sister . * Social History: T obacco Use: S moking A re you a: N ever Smoker. M iscellaneous 2: * Tobacco Use: no. *Alcohol Use: yes, Occasional. *Drug Use: no. *Caffeine Use: no. * Lives with: alone. *Do you feel safe in your home?: yes. * Medications: T akingAspirin 81 MG Tablet Chewable 1 tablet Orally Once a day Basaglar KwikPen 100 UNIT/ML Solution Pen-injector 15 units Subcutaneous once a day Lisinopril 2.5 MG Tablet 1 tablet Orally Once a day metFORMIN HCl ER 500 MG Tablet Extended Release 24 Hour 1 tablet Orally three times a day Repaglinide 2 MG Tablet 1 tablet 15 to 30 minutes before meals Orally three times a day Taking Aspirin 81 MG Tablet Chewable 1 tablet Orally Once a day Taking Basaglar KwikPen 100 UNIT/ML Solution Pen- injector 15 units Subcutaneous once a day Taking Lisinopril 2.5 MG Tablet 1 tablet Orally Once a day Taking metFORMIN HCl ER 500 MG Tablet Extended Release 24 Hour 1 tablet Orally three times a day Taking Repaglinide 2 MG Tablet 1 tablet 15 to 30 minutes before meals Orally three times a day Not-Taking/PRNCO-Q 10 [place]-3 Fish Oil Rosuvastatin Calcium 5 MG Tablet 1 tablet Orally Once a day at bedtime , Notes to Pharmacist: every other dayMedication List reviewed and reconciled with the patientNot- Taking/PRN CO-Q 10 [place]-3 Fish Oil Not-Taking/PRN Rosuvastatin Calcium 5 MG Tablet 1 tablet Orally Once a day at bedtime , Notes to Pharmacist: every other dayMedication List reviewed and reconciled with the patient * Allergies: S ulfa AntibioticsTradjentaZetiaWelCholPioglitazone HClStatinsno[Allergies Verified] Objective: * Vitals: H t: 69 in, Wt: 195 lbs, BMI:28.79, BP:123/71, Pulse sittin, Ht-cm: 175.26, Wt-k.45. * Examination: G ENERAL/CARDIOVASCULAR: GENERAL N o acute distress , Well developed, well nourished , Alert and oriented. SKIN Warm, dry. NECK n o JVD at 90 degrees , no carotid bruit. RESPIRATORY Clear to auscultation, bilateral. CARDIOVASCULAR E xam Reveals. Rate and Rhythm R egular S1, S2 , No S3, S4. Murmur No murmur. Peripheral d orsalis pedis pulses present, no cyanosis, no clubbing, no edema. right knee scar. NEUROLOGIC Oriented x 3 spheres, HOLDER. ? Assessment: * Assessment: 1. A therosclerosis of north fork coronary artery of north fork heart, unspecified whether angina present - I25.10 (Primary) 2 . A bnormal EKG - R94.31 3 . F amily history of coronary artery disease - Z82.49 4 . M ixed hyperlipidemia - E78.2 5. E ssential hypertension - I10 6 . P reop cardiovascular exam - Z01.810 Plan: * Treatment: 2. A bnormal EKG Notes: Elevated CT coronary calcium score, CAD risk factors,Stress testing negative for ischemia. Active with no angina, heart failure, syncope. Aggressive risk factor modification. 3. F amily history of coronary artery disease Notes: risk factor modification Discussed 4. M ixed hyperlipidemia L AB: ALT (SGPT), AST (SGOT) L AB: Lipid Panel Notes: there is evidence of atherosclerotic CAD. Lipids are not at goal. He is intolerant to multiple agents including multiple statins. I suggest Repatha as tolerated. This was prohibitively expensive. He will start pulsed dose Crestor 5 mg p.o. at at bedtime with 2 every 10 supplement. If tolerated we will check fasting lipids AST in 2 months time. Adverse effects of uncontrolled hyperlipidemia discussed 5. E ssential hypertension Notes: Controlled with current medications. Blood pressure had been trending downward with associated lightheadedness. Lisinopril dose was decreased. Blood pressure is becoming less labile and in the normal range. He will follow further and call with an update to see if further adjustments are requiredGoals of therapy discussed. Adverse health effects of uncontrolled hypertension discussed ? 6. P reop cardiovascular exam Notes:Based on available history and data the patient is an acceptable cardiovascular risk for the anticipated prostate biopsy with MAC anesthesia. It is acceptable for him to hold his aspirin therapy for 1 week prior to the procedure and should start as soon afterwards as thought safe per urology. 7. O thers Notes:The patient was instructed to call for test results.This note was dictated using [employer] Medical Practice Edition 2. The document was proofread, however unrecognized voice recognition cold strip feeder errors may be present.PCP: olivia Blak[place], [place] Dr. Devendra Mei, urology * Procedure Codes: * Preventive Medicine: 0 02/08/2022 STRESS ECHO: EF 68%. Negative for ischemia. * Follow Up: 1 Year * Care Plan Details* * Sign off status: Completed true * Provider: Fela Edwards MD Date: 03/09/2025 Generated for Bev garcia/Loly/eTransmitting on: 03/17/2025 06:40 AM EDT History and Physical Notes * Examination Category Sub-Category Detail Notes Category Not es GENERAL/CARDIOVASCULAR GENERAL No acute distress , Well developed, well nourished , Alert and oriented NECK no JVD at 90 degrees , no carotid bruit RESPIRATORY Clear to auscultatio n, bilateral CARDIOVASCULAR Exam Reveals SKIN Warm, dry NEUROLOGIC Oriented x 3 spheres , HOLDER Rate and Rhythm Regular S1, S2 , No S3, S4 Murmur No murmur Peripheral dorsalis pedis pulse s present, no cyanosis, no clubbing, no edema. right knee scar
[2025-03-17] VITALS (10 sets, daily range): BP systolic 123–183; BP diastolic 63–94; PULSE 53–74; TEMP 36.1–36.6; O2SAT 95–100; BMI 28.3
--- OUTSIDE RECORDS SUMMARY | 2025-03-17 06:40 | XMS_ITS | Encounter Summary ---
Author Organization [facility] Address [address] [place] [address] Phone Care Team Providers Care Dog Or Animal Sitter Name Role Phone Jaylon Guillen MD Primary Care Provider Unavail able Jaylon Guillen MD Unavailable Unavailable Encounter Details Date Type Department Care Team (Late st Contact Info) Description 2023 Patient Risk Score ACO Care Management [address] [facility] [address] [place] [id number] Social History Tobacco Use Types Packs/Day Years [...] on filedocumented in this encounter Care Teams Dog Or Animal Sitter Relationship Specialty Start Date End Date Jaylon Guillen MD PCP - General 12/21/18 Jaylon Guillen MD Office Address Unavailable as of 12/28/2022 PCP - [employer] PCP 02/28/22 06/29/23 documented as of this encounter
--- OUTSIDE RECORDS SUMMARY | 2025-03-17 06:40 | XMS_ITS | Patient Health Record ---
Author Organization Corporate Office Address [address] [place] [address] [address] [place] [address] Care Team Providers Care Trip Motor Operator Name Role Phone RODGER GALE, Dr. SOTOMAYOR Primary Care Provider UnavailAshok Sparks MD Unavailable [phone] Isidra VO, Dr. Ramsay Unavailable Unavailab le Allergies Allergen (clinical drug ingredient) Drug/Non Drug Allergy documented on EMR Reaction Allergy Type Onset Date Status pioglitazone Pioglitazone HCl Unknown Drug Allergy Active colesevelam WelChol Unknown Drug Allergy Activ e ezetimibe Zetia Unknown Drug Allergy Active linagliptin Tradjenta Unknown Drug Allergy Activ e Substance with 4-ffsnoec-6-methylgluta ryl-coenzyme A reductase inhibitor mechanism of action (substance) Statins Unknown Drug Allergy Active Substance with sulfonamide structure and antibacterial mechanism of action (substance) Sulfa Antibiotics Unknown Drug Allergy Active Reason For Referral No Information Medications Medication SIG (Take, Route, Frequency, Duration) Notes Start Date End Date Status Rosuvastatin Calcium 5 MG 1 tablet Orally Once a day at bedtime; Duration: 30 days every other day 02/21/2025 Not-Taking CO-Q 10 [place]-3 Fish Oil Not-Taking Basaglar KwikPen 100 UNIT/ML 15 units Subcutaneous once a day Active Lisinopril 2.5 MG 1 tablet Orally Once a day; Duration: 30 days 02/21/2025 Active metFORMIN HCl ER 500 MG 1 tablet Orally three times a day Active Repaglinide 2 MG 1 tablet 15 to 30 minutes before meals Orally three times a day Active Rosuvastatin Calcium 5 MG 1 tablet Orally Three times a week (Fri and Fri); Duration: 90 days 03/09/2025 Active Aspirin 81 MG 1 tablet Orally Once a day 01/30/2022 Active Social History Tobacco Use: Social History Observation Description Date Details (start date - stop date) Never Smoker NA - NA Smoking Question Answer Notes Are you a: Never Smoker Problems Problem Type SNOMED Code ICD Code Onset Dates Problem Status W/U Status Risk Notes Problem Mixed hyperlipidemia (983830771) Mixed hyperlipidemia (E78.2) Active confirmed Problem Essential hypertension (41201338) Essential hypertension (I10) Active confirmed Problem 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 (926585486467016) Atherosclerosis of makah coronary artery of makah heart, unspecified whether angina present (I25.10) Active confirmed Vital Signs Height-cm 175.26 cm 03/09/2025 Blood pressure diastolic 71 mm Hg 03/09/2025 Weight-kg 88.45 kg 03/09/2025 Height 69 in 03/09/2025 Blood pressure systolic 123 mm Hg 03/09/2025 Weight 195 lbs 03/09/2025 BMI 28.79 kg/m2 03/09/2025 Encounters Encounter Location Date Provider Diagnosis 06 [facility] Specialty [address] [place] [address] [place] [phone] 03/09/2025 Ashok Edwards Atherosclerosis of n ative coronary artery of makah heart, unspecified whether angina present I25.10 ; Abnormal EKG R94.31 ; Family history of coronary artery disease Z82.49 ; Mixed hyperlipidemia E78.2 ; Essential hypertension I10 and Preop cardiovascular exam Z01.[address] [address] 02/14/2025 Ashok Edwards Mixed hyperlipidemia E78.2 and Atherosclerosis of makah coronary artery of makah heart, unspecified whether angina present I25.10 06 [facility] Specialty [address] [place] [phone] 03/08/2025 Ashok Edwards 06 [facility] Specialty [address] [place] [address] [place] [phone] 03/09/2025 Ashok Edwards Assessments Encounter Date Diagnosis (ICD Code) Assessment Notes Treatment Notes Treatment Clinical Notes Section Notes 03/09/2025 Atherosclerosis of makah coronary artery of makah heart, unspecified whether angina present (ICD-10 - [...] heart failure, syncope. Aggressive risk factor modification. 02/14/2025 Mixed hyperlipidemia (ICD-10 - E78.2) 02/14/2025 Atherosclerosis of makah coronary artery of makah heart, unspecified whether angina present (ICD-10 - I25.10) 03/09/2025 Family history of coronary artery disease [...] test results. This note was dictated using [employer] Edition 2. The document was proofread, however unrecognized voice recognition assistant director of security errors may be present. PCP: olivia Blakely, [place] Dr. Devendra Mei, urology Plan Of Treatment Pending Test Test Name Order Date ALT (SGPT), AST (SGOT) 03/09/2025 Treadmill Stress Echocardiogram 08/03/20 22 Lipid Panel 03/09/2025 Future Test Test Name Order Date BMP (Basic Metabolic Panel) 02/06/2022 ALT (SGPT), AST (SGOT) 04/01/2022 Lipid Panel 04/01/2022 ALT (SGPT), AST (SGOT) 05/09/2024 Lipid Panel 05/09/2024 Next Appt Details Provider Name:Ashok Edwards , 03/09/2026 01:30:00 PM, [address] [place] [address], [address], [place], [address], Insurance Providers Payer Name Payer Address Payer Phone Subscriber Number Group Number Insured Name Patient Relationship to Insured Coverage Start Date Coverage End Date [employer] MEDICARE PPO [address] [place] [address] [id number] Ashok Toscano Self - patient is the insured [employer] [address] [place] [address] [phone] [id number] Ashok Toscano Self - patient is the insured Medical (General) History Medical History History ICD Code Type 2 DM HTN Chronic Rhinitis Elevated PSA Coronary artherosclerosis Hypercholesterolemia Hospitalization History Reason Date(Month/Year) Numbness in arm
--- OUTSIDE RECORDS SUMMARY | 2025-03-17 06:40 | XMS_ITS | Encounter Summary ---
Author Organization [facility] Address [address] [place] [address] Phone Care Team Providers Care Flight Deck Officer Name Role Phone Jaylon Guillen MD Primary Care Provider Unavail able Jaylon Guillen MD Unavailable Unavailable Encounter Details Date Type Department Care Team (Late st Contact Info) Description 01/30/2023 Patient Risk Score ACO Care Management [address] [facility] [address] [place] [phone] Social History Tobacco Use Types Packs/Day Years [...] on filedocumented in this encounter Care Teams Flight Deck Officer Relationship Specialty Start Date End Date Jaylon Guillen MD PCP - General 12/21/18 Jaylon Guillen MD Office Address Unavailable as of 12/28/2022 PCP - [employer] Medicare Advantage PCP 02/28/22 06/29/23 documented as of this encounter
--- OUTSIDE RECORDS SUMMARY | 2025-03-17 06:40 | XMS_ITS | Encounter Summary ---
Author Organization [facility] Address [address] [place] [address] Phone Care Team Providers Care Client Service Supervisor Name Role Phone Jaylon Guillen MD Primary Care Provider Unavail able Jaylon Guillen MD Unavailable Unavailable Encounter Details Date Type Department Care Team (Late st Contact Info) Description 03/02/2023 Patient Risk Score ACO Care Management [address] [facility] [address] [place] [phone] Social History Tobacco Use Types Packs/Day Years [...] on filedocumented in this encounter Care Teams Client Service Supervisor Relationship Specialty Start Date End Date Jaylon Guillen MD PCP - General 12/21/18 Jaylon Guillen MD Office Address Unavailable as of 12/28/2022 PCP - [employer] Medicare Advantage PCP 02/28/22 06/29/23 documented as of this encounter
--- OUTSIDE RECORDS SUMMARY | 2025-03-17 06:40 | XMS_ITS | Clinical Summary ---
Author Organization [facility] Address [address] [place] [address] Care Team Providers Care Bicycle Technician Name Role Phone Unavailable Primary Care Provider Unavailabl e Allergies Active Allergy Reactions Criticality Noted Date Comments Tnolmkx-Cll-Nxi Reductase Inhibitors GI Upset 03/29/2014 Sulfa (Sulfonamide [...] Maintenance Results * (ABNORMAL) COMPREHENSIVE METABOLIC PANEL (EU,FV,HL,LK,YOHAN,MM,SP) (12/20/2014 1:46 AM EDT) Protein, Total 8.1 6.0 - 8.4 g/dL 12/20/2014 2:57 AM EDT [facility] Albumin 5.0 3.5 - 5.0 g/dL 12/20/2014 2:57 AM EDT [facility] Calcium 9.7 8.5 - 10.5 mg/dL 12/20/2014 2:57 AM EDT [facility] Bilirubin, Total 0.6 0.0 - 1.5 mg/dL 12/20/2014 2:57 AM EDT [facility] Alkaline Phosphatase 69 40 - 150 U/L 12/20/2014 2:57 AM EDT [facility] AST 31 7 - 40 U/L 12/20/2014 2:57 AM EDT [facility] Glucose 249(H) 65 - 100 mg/dL 12/20/2014 2:57 AM EDT [facility] BUN 19 10 - 25 mg/dL 12/20/2014 2:57 AM EDT [facility] Creatinine 0.81 0.70 - 1.40 mg/dL 12/20/2014 2:57 AM EDT [facility] Sodium 141 135 - 146 mmol/L 12/20/2014 2:57 AM EDT [facility] Potassium 4.1 3.5 - 5.0 mmol/L 12/20/2014 2:57 AM EDT [facility] Chloride 100 98 - 110 mmol/L 12/20/2014 2:57 AM EDT [facility] CO2 22(L) 23 - 32 mmol/L 12/20/2014 2:57 AM EDT [facility] Anion Gap 19(H) 0 - 15 mmol/L 12/20/2014 2:57 AM EDT [facility] ALT 58(H) 5 - 50 U/L 12/20/2014 2:57 AM EDT [facility] Glom Filtration Rate (AA) >60 >60 12/20/2014 2:57 AM EDT [facility] Glom Filtration Rate (TOMY) >60 >60 . 12/20/2014 2:57 AM EDT [facility] Comment: eGFR (Estimated GFR) Units [...] REGIONAL Final R esult Performing Organization Address [facility] de Phone Number [facility] [address] [place] [address] * (ABNORMAL) LIPID PANEL BASIC (05/04/2010 8:32 AM EDT) Triglyceride 183(H) 30 - 149 mg/dL [facility] Cholesterol, Total 205(H) 100 - 199 mg/dL [facility] HDL Cholesterol 32(L) >45 mg/dL [facility] VLDL Cholesterol 37 6 - 40 mg/dL [facility] LDL Calculated 136(H) 60 - 129 mg/dL [facility] Fasting Time 12 hrs [facility] TC:HDL Ratio 6.41(H) 1.00 - 5.00 [facility] LDL:HDL Ratio 4.25(H) 0.50 - 3.55 [facility] 05/04/2010 8:32 AM EDT 05/04/2010 8:39 AM EDT Jaylon Guillen MD LABORATORY Final Resul t Performing Organization Address [facility] de Phone Number [facility] [address] [place] [address] from Last 3 Months or Most Recently Relevant to Health Maintenance Insurance [facility] PPO
--- OUTSIDE RECORDS SUMMARY | 2025-03-17 06:40 | XMS_ITS | Encounter Summary ---
Author Organization [facility] Address [address] [place] [address] Phone Care Team Providers Care Binder Roller Name Role Phone Jaylon Guillen MD Primary Care Provider Unavail able Encounter Details Date Type Department Care Team (Late st Contact Info) Description 07/02/2023 Patient Risk Score ACO Care Management [address] [place] [phone] Social History Tobacco Use Types Packs/Day Years [...] on filedocumented in this encounter Care Teams Binder Roller Relationship Specialty Start Date End Date Jaylon Guillen MD PCP - General 12/21/18 documented as of this encounter
--- OUTSIDE RECORDS SUMMARY | 2025-03-17 06:40 | XMS_ITS | Encounter Summary ---
Author Organization [facility] Address [address] [place] [address] Phone Care Team Providers Care Compound Mixer Name Role Phone Jaylon Guillen MD Primary Care Provider Unavail able Encounter Details Date Type Department Care Team (Late st Contact Info) Description 08/03/2023 Patient Risk Score ACO Care Management [address] [place] [phone] Social History Tobacco Use Types Packs/Day Years [...] on filedocumented in this encounter Care Teams Compound Mixer Relationship Specialty Start Date End Date Jaylon Guillen MD PCP - General 12/21/18 documented as of this encounter
--- OUTSIDE RECORDS SUMMARY | 2025-03-17 06:40 | XMS_ITS | Clinical Summary ---
Author Organization [facility] Address [address] [place] [address] Phone Care Team Providers Care Plastic Parts Fabricator Name Role Phone Jaylon Guillen MD Primary [...] EST) Cholesterol 196 0 - 199 mg/dL [facility] Comment: . AGE DESIRABLE BORDERLINE HIGH [...] prior to Metamizole dosing. HDL 30.1(A) mg/dL [facility] Comment: . AGE VERY LOW LOW NORMAL HIGH 0-19 Y < 35 < 40 40-45 ---- 20-24 Y ---- < 40 >45 ---- >24 Y ---- < 40 40-60 >60 . Cholesterol/HDL Ratio 6.5(A) [facility] Comment: REF VALUES DESIRABLE < 3.4 HIGH RISK > 5.0 LDL 134(H) 0 - 99 mg/dL [facility] Comment: . NEAR BORD AGE DESIRABLE OPTIMAL HIGH HIGH VERY HIGH 0-19 Y 0 - 109 --- 110-129 >/= 130 ---- 20-24 Y 0 - 119 --- 120-159 >/= 160 ---- >24 Y 0 - 99 100-129 130-159 160-189 >/=190 . VLDL 32 0 - 40 mg/dL [facility] Triglycerides 160(H) 0 - 149 mg/dL [facility] Comment: . AGE DESIRABLE BORDERLINE HIGH [...] MD LAB BLOOD ORDERABLES Final Res ult [facility] [id number] [facility] [address] [id number] * Prostate Specific Antigen, Screen (06/25/2021 9:12 AM EST) Prostate Specific Antigen,Screen 2.61 0.00 - 4.00 ng/mL [facility] Comment: The FDA requires that the method used for PSA assay be reported to the physician. Values obtained with different assay methods must not be used interchangeably. This test was performed at [facility] using the Siemens [id number] PSA method, which is a sandwich immunoassay using chemiluminescence for quantitation. The assay is approved for measurement of prostate-specific antigen (PSA) in serum and may be used in conjunction with a digital rectal examination in men 50 years and older as an aid in detection of prostate cancer. 3-Qqajc-bqctejuxp inhibitors (e.g. Proscar, Finasteride, Avodart, Dutasteride and Michelle) for the treatment of BPH have been shown to lower PSA levels by an average of 50% after 6 months of treatment. 06/25/2021 9:12 AM EST 06/25/2021 5:19 PM EST us Jaylon Guillen MD LAB BLOOD ORDERABLES Final Res ult Performing Organization Address [facility]/ZIP Co de Phone Number [facility] * LAB COLOGUARD?? COLON CANCER SCREEN (02/23/2019) Narrative 02/23/2019 Ordered by an unspecified provider. us Onbase Conversion LAB MOLECULAR DIAGNOSTICS ORDE RABLES Final Result from Last 3 Months or Most Recently Relevant to Health Maintenance Care Teams Plastic Parts Fabricator Relationship Specialty Start Date End Date Jaylon Guillen MD PCP - General 12/21/18
--- OUTSIDE RECORDS SUMMARY | 2025-03-17 06:40 | XMS_ITS | Encounter Summary ---
Author Organization [facility] Address [address] [place] [address] Phone Care Team Providers Care Shuttle Operator Name Role Phone Jaylon Guillen MD Primary Care Provider Unavail able Jaylon Guillen MD Unavailable Unavailable Encounter Details Date Type Department Care Team (Late st Contact Info) Description 12/30/2022 Patient Risk Score ACO Care Management [address] [facility] [address] [place] [phone] Social History Tobacco Use Types Packs/Day Years [...] on filedocumented in this encounter Care Teams Shuttle Operator Relationship Specialty Start Date End Date Jaylon Guillen MD PCP - General 12/21/18 Jaylon Guillen MD Office Address Unavailable as of 12/28/2022 PCP - [employer] Medicare Advantage PCP 02/28/22 06/29/23 documented as of this encounter
--- OUTSIDE RECORDS SUMMARY | 2025-03-17 06:40 | XMS_ITS | Encounter Summary ---
Author Organization [facility] Address [address] [place] [address] Phone Care Team Providers Care Failure Analysis Technician Name Role Phone Jaylon Guillen MD Primary Care Provider Unavail able Jaylon Guillen MD Unavailable Unavailable Encounter Details Date Type Department Care Team (Late st Contact Info) Description 04/01/2023 Patient Risk Score ACO Care Management [address] [facility] [address] [place] [phone] Social History Tobacco Use Types Packs/Day Years [...] on filedocumented in this encounter Care Teams Failure Analysis Technician Relationship Specialty Start Date End Date Jaylon Guillen MD PCP - General 12/21/18 Jaylon Guillen MD Office Address Unavailable as of 12/28/2022 PCP - [employer] Medicare Advantage PCP 02/28/22 06/29/23 documented as of this encounter
--- OUTSIDE RECORDS SUMMARY | 2025-03-17 06:40 | XMS_ITS | Encounter Summary ---
Author Organization [facility] Address [address] [place] [address] Phone Care Team Providers Care Ship Joiner Name Role Phone Jaylon Guillen MD Primary Care Provider Unavail able Encounter Details Date Type Department Care Team (Late st Contact Info) Description 09/01/2023 Patient Risk Score ACO Care Management [address] [place] [phone] Social History Tobacco Use Types Packs/Day Years [...] on filedocumented in this encounter Care Teams Ship Joiner Relationship Specialty Start Date End Date Jaylon Guillen MD PCP - General 12/21/18 documented as of this encounter
--- OUTSIDE RECORDS SUMMARY | 2025-03-17 06:40 | XMS_ITS | Encounter Summary ---
Author Organization [facility] Address [address] [place] [address] Phone Care Team Providers Care High Wire Artist Name Role Phone Jaylon Guillen MD Primary Care Provider Unavail able Jaylon Guillen MD Unavailable Unavailable Encounter Details Date Type Department Care Team (Late st Contact Info) Description 06/01/2023 Patient Risk Score ACO Care Management [address] [facility] [address] [place] [phone] Social History Tobacco Use Types Packs/Day Years [...] on filedocumented in this encounter Care Teams High Wire Artist Relationship Specialty Start Date End Date Jaylon Guillen MD PCP - General 12/21/18 Jaylon Guillen MD Office Address Unavailable as of 12/28/2022 PCP - [employer] Medicare Advantage PCP 02/28/22 06/29/23 documented as of this encounter
--- OUTSIDE RECORDS SUMMARY | 2025-03-17 06:41 | XMS_ITS | CCD ---
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 Name Role Phone Nekl, Jaylon Unavailable Unavailable [...] Unavailable NEKL, JAYLON LAKHWINDER Referring Unavailable NEKL, JALYON LAKHWINDER Referring Unavailable NEKL, JAYLON LAKHWINDER Primary [...] Care Provider MD Devendra Miner Attending Provider [phone] MAST, СВЕТЛАНА E Primary Care Physician Mast, DO Светлана Primary Care Provider MD Devendra Miner Attending Provider [phone] MD Devendra Miner Attending Provider Mast, DO Светлана Primary Care Provider Mast, DO Светлана Attending Provider MINER, Devendra R Attending Unavailable MINER, Devendra [...] Care Provider Mast DO, Светлана Attending Provider Mast, Светлана Attending Unavailable Mast, Светлана Admitting Unavailable Mast, Светлана Primary Care Unavailable Mast, Светлана Attending Unavailable Mast, Светлана Admitting Unavailable Mast, Светлана Primary Care Unavailable Allergies Allergy Classification Reported Allergen(s) Allergy Type Date of Onset Reaction(s) Facility Cholesterol Absorption Inhibitors (1 source) ezetimibe; Translations: [Zetia TABS] Drug Allergy [facility] Work Phone: colesevelam (1 source) colesevelam; Translations: [Welchol] Drug Allergy [facility] Work Phone: Linagliptin (1 source) Linagliptin; Translations: [Tradjenta TABS] Drug Allergy [facility] Work Phone: Sulfonamides (antibiotic) (1 source) Sulfonamides (Antibiotic); Translations: [Sulfa Drugs] Drug Allergy [facility] Work Phone: Thiazolidinediones (glitazones) (1 source) pioglitazone; Translations: [Pioglitazone HCl TABS] Drug Allergy [facility] Work Phone: (20 sources) colesevelam; Translations: [Welchol] Drug Allergy [facility] Repository (20 sources) ezetimibe; Translations: [Zetia TABS] Drug Allergy [facility] Work Phone: (20 sources) Linagliptin; Translations: [Tradjenta TABS] Drug Allergy [facility] Work Phone: (20 sources) pioglitazone; Translations: [Pioglitazone HCl TABS] Drug Allergy [facility] Work Phone: (20 sources) Sulfonamides (Antibiotic); Translations: [Sulfa Drugs] drug allergy Eruption of skin (disorder) Offsite Surgery (15 sources) Sulfonamides (Antibiotic); Translations: [Sulfa (Sulfonamide Antibiotics)] Allergy to substance 12-08-19 22 Unknown Reaction, Hives [facility] Comment on above: Updated list from pt and daughter (15 sources) [id number] Reductase Inhibitor; Translations: [Yjctizd-UQZ-NcG Reductase Inhibitor] Allergy to substance 12-08-19 22 Unknown Reaction, Unknown Reaction, rash, Muscle Pain [facility] Comment on above: From updated patient list and daughter (1 source) ezetimibe Drug Allergy [facility] Repository (1 source) Linagliptin Drug Allergy [facility] (1 source) pioglitazone Drug Allergy [facility] (1 source) Sulfonamides (Antibiotic) Drug allergy (disorder) [facility] Repository (19 sources) HMG-CoA reductase inhibitor; Translations: [statins] Drug allergy rash, Eruption of skin (disorder) [facility] (6 sources) Sulfacetamide Sod-Sulfur Drug allergy rash [employer] Other (3 sources) SITagliptin Drug Allergy 07-14-19 shortness of breath [facility] (16 sources) Sulfur; Translations: [sulfur topical] Drug Allergy Eruption of skin (disorder) [facility] (1 source) Sulfacetamide Drug Allergy 07-14-19 24 rash [facility] (11 sources) Gliptins (DPP-4 Inhibitors); Translations: [Gliptins (DPP-4 Inhibitors)] Propensity to adverse reactions 10-16-19 Laryngitis [facility] Comment on above: Confirmed with pt jef [facility] and daughter. (5 sources) Sulfonamide; Translations: [sulfa drugs] Drug allergy Eruption of skin (disorder) Offsite Surgery (3 sources) Hmg-Coa Reductase Inhibitors (Statins); Translations: [statins] Propensity to adverse reactions (disorder) [facility] Repository Medications Current Medications Medication Drug Class(es) Dates Sig (Normalized) Sig (Original) aspirin 81 mg delayed release oral tablet (20 sources) Platelet Aggregation Inhibitor, Nonsteroidal Anti-inflammatory Drug Start: 06-04-2023 take 1 tablet by mouth once daily Basaglar KwikPen (13 sources) Start: 06-04-2023 Basaglar KwikPen SubCutaneous, Daily, Refills(s) 0 Start Date: 06/04/23 Status: Ordered Repeat number: 1 Start: 06-04-2023 Basaglar KwikP en SubCutaneous, Daily, Refills(s) 0 Start Date: 06/04/23 Status: Ordered Blood-Glucose Sensor (Freest yle Mohamud 3 Sensor) device (13 sources) Start: 09-01-2024 Blood-Glucose Sensor (Freestyle Mohamud [...] day(s), # 14 tab(s), Refills(s) 0, Pharmacy: [facility], 178, cm, 02/23/25 8:11:00 EDT, Height/Length [...] completed, # 2 tab(s), Refills(s) 0, Pharmacy: [facility], 178, cm, 06/04/23 13:57:00 EST, Height/Length Dosing, 87, kg, 06/04/23 13:57:00 EST, Weight Dosing Start Date: 06/04/23 Status: Ordered Dexcom G7 Sensor - (1 source) Dexcom G7 Sensor - as directed 1 box Active doxycycline hyclate 100 mg oral capsule (3 sources) Tetracycline-cla ss Drug Start: take 1 capsule by mouth twice daily doxycycline hyclate 100 mg Cap 100 mg = 1 cap(s), Oral, BID, # 14 cap(s), Refills(s) 0, Pharmacy: [facility], 178, cm, 11/05/23 15:04:00 EDT, Height/Length [...] by subcutaneous injection once daily at bedtime Start: 10-16-2023 End: 04-12-2024 inject 10 [IU] [...] a day Active lisinopril 2.5 mg oral table t (20 sources) Angiotensin Converting Enzyme Inhibitor Start: 03-07-2025 Start: 09-01-2024 End: 03-07-2025 take 1 tablet [...] Source Status: Continue; Provider: Castro Krishna Start: 07-20-2018 take 1 tablet by savi once daily Lisinopril 5 MG Oral Tablet Take 1 tablet daily Quantity: 90 Refills: 3 Mindy VO, Jaylon Start : 20-Jul-2018 Active 24 hr metFORMIN hydrochlorid e 500 mg extended release oral tablet (20 sources) Biguanide Start: 03-07-2025 take 2 tablets by mo uth three times daily in the morning, then [...] Provider: Castro Krishna Start: 09-18-2023 End: 10-16-2023 Metformin 500 mg tablet exte nded release 24 hr Discontinued 1000 MG PO Twice daily 360 September 18, 2023 1:59pm October 16, 2023 12:26pm [employer] tablets Orally twice a day; Note: Source Status: Continue; Provider: Castro Krishna Start: 09-18-2023 End: 09-18-2023 take 1 tablet by mouth twice daily Metformin 500 mg tablet extended release 24 hr Discontinued 2 TAB PO Twice daily September 18, 2023 12:00am September 18, 2023 2:05pm [employer] tablets Orally twice a day; Note: Source Status: Continue; Provider: Castro Krishna Start: 09-18-2023 End: 10-16-2023 take 2 tablets by mouth twice daily Metformin Discontinued 1000 MG PO Twice daily 360 September 18, 2023 1:59pm October 16, 2023 12:26pm [employer] tablets Orally twice a day; Note: Source Status: Continue; Provider: Castro Krishna Start: 06-04-2023 take 1 mg by mouth [...] 1 tablet by mouth three times daily Start: 06-04-2023 End: 12-06-2023 take 1 tablet by mouth three [...] Active rosuvastatin calcium 5 mg oral tablet (2 sources) HMG-CoA Reductase Inhibitor Start: 03-07-2025 tamsulosin hydrochloride 0.4 mg oral capsule (20 sources) alpha-Adrenergic Maricel Start: 06-04-2023 End: 05-29-2024 take 1 capsule by mouth once daily Completed/Discontinued Medications Medication Drug Class(es) Dates Sig [...] [Coronary atherosclerosis of unspecified type of vessel, [place] or graft] Onset: 02-11-2022 Chronic Diabetes mellitus [...] urine] Onset: 06-04-2023 Episodic Hyperplasia of prostate (19 sources) Benign prostatic hypertrophy with outflow obstruction; Translations: [Benign prostatic hyperplasia with lower urinary tract symptoms] Onset: 06-04-2023 Chronic Immunizations and screening for infectious disease (20 sources) Patient encounter status; Translations: [Other specified vaccination] Episodic Other connective tissue disease (8 sources) Pain in right arm; Translations: [Pain [...] Translations: [Cough] Episodic Other nervous system disorders (14 sources) Nerve palsy; 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 USE OF INSULIN] Onset: 10-10-2022 Episodic Other screening for suspected conditions (not mental [...] Test Name Value Interpretation Reference Range Facility Alanine aminotransferase [En zymatic activity/volume] in Serum or PlasmaOrdered By: Светлана Erazo on 03-09-2025 ALT [Catalytic activity/Vol] 32 U/L Normal 7-52 [facility] Comment on above: Performed By: #### L IPID, CBC, URMACRERAT, EBS A1C, CMP wRFX A1C #### [facility] [address] [place] [address] [place] Albumin [Mass/volume] in Ser um or Plasma by Bromocresol green (BCG) dye binding methoOrdered By: Светлана Erazo on 03-09-2025 Albumin BCG dye [Mass/Vol] 4.8 g/dL 3.5-5.7 [facility] Alkaline phosphatase [Enzyma tic activity/volume] in Serum or PlasmaOrdered By: Светлана Erazo on 03-09-2025 ALP [Catalytic activity/Vol] 60 U/L Normal 34-104 [facility] Comment on above: Performed By: #### L IPID, CBC, URMACRERAT, EBS A1C, CMP wRFX A1C #### [facility] [address] [place] [id number] [place] Aspartate aminotransferase [ Enzymatic activity/volume] in Serum or PlasmaOrdered By: Светлана Erazo on 03-09-2025 AST [Catalytic activity/Vol] 21 U/L Normal 13-39 [facility] Comment on above: Performed By: #### L IPID, CBC, URMACRERAT, EBS A1C, CMP wRFX A1C #### [facility] [address] [place] [address] [place] Basophils [#/volume] in Bloo d by Automated countOrdered By: Светлана Erazo on 03-09-2025 Basophils (Bld) [#/Vol] 0.1 10*3/uL Normal 0.0-0.2 [facility] Comment on above: Result Comment: PERF ORMED BY: [place] [address] PATHOLOGIST SOLUTIONS OPERATOR ROHAN PAUL M.D. Performed By: #### L IPID, CBC, URMACRERAT, EBS A1C, CMP wRFX A1C #### [facility] [address] Basophils/100 leukocytes in Blood by Automated countOrdered By: Светлана Erazo on 03-09-2025 Basophils/100 WBC (Bld) 0.9 % Normal . [facility] Comment on above: Performed By: #### L IPID, CBC, URMACRERAT, EBS A1C, CMP wRFX A1C #### [facility] [address] Bilirubin.total [Mass/volume ] in Serum or PlasmaOrdered By: Светлана Erazo on 03-09-2025 Bilirubin [Mass/Vol] 0.5 mg/dL Normal 0.3-1.0 [facility] Comment on above: Performed By: #### L IPID, CBC, URMACRERAT, EBS A1C, CMP wRFX A1C #### [facility] [address] Blood estimated average gluc ose determination by estimation from glycated hemoglobinOrdered By: Светлана Erazo on 03-09-2025 Average glucose Estimated from glycated hemoglobin (Bld) [Mass/Vol] 154 mg/dL [facility] CMP with reflex to A1Con Albumin [Mass/Vol] 4.8 g/dL Normal 3.5-5.7 [facility] Comment on above: Performed By: #### L IPID, CBC, URMACRERAT, EBS A1C, CMP wRFX A1C #### [facility] [address] GFR/1.73 sq M.predicted MDRD (S/P/Bld) [Vol rate/Area] 51.735 mL/min/{1.73_m2} Normal [facility] Comment on above: Performed By: #### L IPID, CBC, URMACRERAT, EBS A1C, CMP wRFX A1C #### [facility] [address] [place] [address] [place] Calcium [Mass/volume] in Ser um or PlasmaOrdered By: Светлана Mast on 03-09-2025 Calcium [Mass/Vol] 9.7 mg/dL Normal 8.6-10.3 [facility] Comment on above: Performed By: #### L IPID, CBC, URMACRERAT, EBS A1C, CMP wRFX A1C #### [facility] [address] [place] [address] [place] Carbon dioxide, total [Moles /volume] in Serum or PlasmaOrdered By: Светлана Mast on 03-09-2025 CO2 [Moles/Vol] 24.8 mmol/L Normal 21.0-31.[address] [facility] Comment on above: Performed By: #### L IPID, CBC, URMACRERAT, EBS A1C, CMP wRFX A1C #### [facility] [address] [place] [address] [place] Chloride [Moles/volume] in S mani or PlasmaOrdered By: Светлана Mast on 03-09-2025 Chloride [Moles/Vol] 105 mmol/L Normal 98-107 [facility] Comment on above: Performed By: #### L IPID, CBC, URMACRERAT, EBS A1C, CMP wRFX A1C #### [facility] [address] [place] [address] [place] Cholesterol [Mass/volume] in Serum or PlasmaOrdered By: Светлана Mast on 03-09-2025 Cholesterol [Mass/Vol] 193 mg/dL Normal 140-200 [facility] Comment on above: Chol less than 200 m g/dl low riskChol 201-239 mg/dl borderline riskChol 240 mg/dl and greater high risk Result Comment: Chol less than 200 mg/dl low risk Chol 201-239 mg/dl borderline risk Chol 240 mg/dl and greater high risk Performed By: #### L IPID, CBC, URMACRERAT, EBS A1C, CMP wRFX A1C #### [facility] [address] [place] [address] [place] Cholesterol in HDL [Mass/vol ume] in Serum or PlasmaOrdered By: Светлана Erazo on 03-09-2025 Cholesterol in HDL [Mass/Vol] 33 mg/dL Normal 23-92 [facility] Comment on above: HDL CHOL ATP-III CLA SSIFICATION Cardiovascular RiskHDL > or equal to 60 mg/dL LOWHDL < 40 mg/dL HIGH Result Comment: HDL CHOL ATP-III CLASSIFICATION Cardiovascular Risk HDL > or equal to 60 mg/dL LOW HDL < 40 mg/dL HIGH Performed By: #### L IPID, CBC, URMACRERAT, EBS A1C, CMP wRFX A1C #### [facility] [address] [place] [id number] [place] Cholesterol in LDL Calc [Mas s/Vol]Ordered By: Светлана Erazo on 03-09-2025 Cholesterol in LDL [Mass/Vol] 130 mg/dL High 0-100 [facility] Comment on above: LDL ATP III CLASSIFI CATIONLDL less than 100 mg/dL OptimalLDL 100-129 mg/dL Near or above optimalLDL 130-159 mg/dL Borderline highLDL 160-189 mg/dL HighLDL greater than 189 mg/dL Very high Cholesterol in VLDL Calc [Ma ss/Vol]Ordered By: Светлана Erazo on 03-09-2025 Cholesterol in VLDL [Mass/Vol] 30 mg/dL [facility] Complete Blood Count Auto Di ffon 03-09-2025 Mean Corpuscular HGB Conc 33.9 g/dL Normal 32.5-35.6 [facility] Comment on above: Performed By: #### L IPID, CBC, URMACRERAT, EBS A1C, CMP wRFX A1C #### [facility] [address] [place] [id number] [place] NRBC% 0.0 /100{WBC} Normal 0-0.5 [facility] Comment on above: Performed By: #### L IPID, CBC, URMACRERAT, EBS A1C, CMP wRFX A1C #### [facility] [address] [place] [id number] [place] White Blood Count 7.6 [CFU]/mL Normal 4.1-10.5 [facility] Comment on above: Performed By: #### L IPID, CBC, URMACRERAT, EBS A1C, CMP wRFX A1C #### [facility] [address] [place] [address] [place] Creatinine [Mass/volume] in Serum or PlasmaOrdered By: Светлана Mast on 03-09-2025 Creatinine [Mass/Vol] 1.46 mg/dL High 0.70-1.30 [facility] Comment on above: Performed By: #### L IPID, CBC, URMACRERAT, EBS A1C, CMP wRFX A1C #### [facility] [address] [place] [address] [place] Creatinine [Mass/volume] in UrineOrdered By: Светлана Mast on 03-09-2025 Creatinine (U) [Mass/Vol] 124.00 mg/dL [facility] Comment on above: No reference range e stablished EBS A1C with Estimated Ave Gage luon 03-09-2025 Glucose [Mass/Vol] 154 mg/dL Normal [facility] Comment on above: Result Comment: PERF ORMED BY: [place] [address] PATHOLOGIST SOLUTIONS OPERATOR ROHAN PAUL M.D. Performed By: #### L IPID, CBC, URMACRERAT, EBS A1C, CMP wRFX A1C #### [facility] [address] [place] [address] [place] Eosinophils [#/volume] in Bl ood by Automated countOrdered By: Светлана Mast on 03-09-2025 Eosinophils (Bld) [#/Vol] 0.3 10*3/uL Normal 0.0-0.45 [facility] Comment on above: Performed By: #### L IPID, CBC, URMACRERAT, EBS A1C, CMP wRFX A1C #### [facility] [address] [place] [address] [place] Eosinophils/100 leukocytes i n Blood by Automated countOrdered By: Светлана Mast on 03-09-2025 Eosinophils/100 WBC (Bld) 3.9 % Normal . [facility] Comment on above: Performed By: #### L IPID, CBC, URMACRERAT, EBS A1C, CMP wRFX A1C #### [facility] [address] Erythrocyte distribution wid th [Ratio] by Automated countOrdered By: Светлана Erazo on 03-09-2025 Erythrocyte distribution width (RBC) [Ratio] 13.4 % Normal 12.0-14.8 [facility] Comment on above: Performed By: #### L IPID, CBC, URMACRERAT, EBS A1C, CMP wRFX A1C #### [facility] [address] Erythrocytes [#/volume] in B lood by Automated countOrdered By: Светлана Erazo on 03-09-2025 RBC (Bld) [#/Vol] 4.35 10*6/uL Normal 3.90-5.60 [facility] Comment on above: Performed By: #### L IPID, CBC, URMACRERAT, EBS A1C, CMP wRFX A1C #### [facility] [address] Glomerular filtration rate [ Volume Rate/Area] in Serum, Plasma or Blood by CreatinineOrdered By: Светлана Erazo on 03-09-2025 Glomerular filtration rate [Volume Rate/Area] in Serum, Plasma or Blood by Creatinine 51.735 mL/Min [facility] Glucose [Mass/volume] in Ser um or PlasmaOrdered By: Светлана Erazo on 03-09-2025 Glucose [Mass/Vol] 152 mg/dL High 70-100 [facility] Comment on above: ADA recommended refe rence range Result Comment: ADA recommended reference range Performed By: #### L IPID, CBC, URMACRERAT, EBS A1C, CMP wRFX A1C #### [facility] [address] Hematocrit [Volume Fraction] of Blood by Automated countOrdered By: Светлана Erazo on 03-09-2025 Hematocrit (Bld) [Volume fraction] 39.0 % Normal 38.8-50.0 [facility] Comment on above: Performed By: #### L IPID, CBC, URMACRERAT, EBS A1C, CMP wRFX A1C #### [facility] [address] Hemoglobin A1c measurementOr dered By: Светлана Erazo on 03-09-2025 HbA1c (Bld) [Mass fraction] 7.0 % High 4.3-5.6 [facility] Comment on above: Increased risk for d iabetes: 5.7 - 6.4diabetes: >6.4glycemic control for adults with diabetes: <7.0 Result Comment: Incr eased risk for diabetes: 5.7 - 6.4 diabetes: >6.4 glycemic control for adults with diabetes: <7.0 Performed By: #### L IPID, CBC, URMACRERAT, EBS A1C, CMP wRFX A1C #### [facility] [address] Hemoglobin [Mass/volume] in BloodOrdered By: Светлана Erazo on 03-09-2025 Hemoglobin (Bld) [Mass/Vol] 13.2 g/dL Normal 13.0-17.0 [facility] Comment on above: Performed By: #### L IPID, CBC, URMACRERAT, EBS A1C, CMP wRFX A1C #### [facility] [address] Leukocytes [#/volume] correc dariana for nucleated erythrocytes in Blood by Automated counOrdered By: Светлана Erazo on 03-09-2025 WBC corrected for nucl RBC Auto (Bld) [#/Vol] 7.6 10*3/uL 4.1-10.5 [facility] Leukocytes [#/volume] in Blo od by Automated countOrdered By: Светлана Erazo on 03-09-2025 WBC (Bld) [#/Vol] 7.6 10*3/uL Normal 4.1-10.5 [facility] Comment on above: Performed By: #### L IPID, CBC, URMACRERAT, EBS A1C, CMP wRFX A1C #### [facility] [address] Lipid Panelon 03-09-2025 LDL Cholesterol,Calculated 130 mg/dL High 0-100 [facility] Comment on above: Result Comment: LDL ATP III CLASSIFICATION LDL less than 100 mg/dL Optimal LDL 100-129 mg/dL Near or above optimal LDL 130-159 mg/dL Borderline high LDL 160-189 mg/dL High LDL greater than 189 mg/dL Very high Performed By: #### L IPID, CBC, URMACRERAT, EBS A1C, CMP wRFX A1C #### [facility] [address] Triglyceride w/Reflex 151 mg/dL High 0-149 [facility] Comment on above: Result Comment: TRIG ATP III CLASSIFICATION TRIG less than 150 mg/dL Normal TRIG 150-199 mg/dL Borderline high TRIG 200-500 mg/dL High TRIG greater than 500 mg/dL Very high Standard traceable to the Center for Disease Conrtrol and Prevention (CDC) test method. Performed By: #### L IPID, CBC, URMACRERAT, EBS A1C, CMP wRFX A1C #### [facility] [address] VLDL CHOLESTEROL 30 mg/dL Normal [facility] Comment on above: Performed By: #### L IPID, CBC, URMACRERAT, EBS A1C, CMP wRFX A1C #### [facility] [address] [place] [id number] [place] Lymphocytes [#/volume] in Bl ood by Automated countOrdered By: Светлана Erazo on 03-09-2025 Lymphocytes (Bld) [#/Vol] 2.7 10*3/uL Normal 1.00-4.8 [facility] Comment on above: Performed By: #### L IPID, CBC, URMACRERAT, EBS A1C, CMP wRFX A1C #### [facility] [address] [place] [id number] [place] Lymphocytes/100 leukocytes i n Blood by Automated countOrdered By: Светлана Erazo on 03-09-2025 Lymphocytes/100 WBC (Bld) 35.7 % Normal . [facility] Comment on above: Performed By: #### L IPID, CBC, URMACRERAT, EBS A1C, CMP wRFX A1C #### [facility] [address] MCH [Entitic mass] by Automa dariana countOrdered By: Светлана Mast on 03-09-2025 MCH (RBC) [Entitic mass] 30.3 pg Normal 27.5-35.2 [facility] Comment on above: Performed By: #### L IPID, CBC, URMACRERAT, EBS A1C, CMP wRFX A1C #### [facility] [address] MCHC Auto (RBC) [Mass/Vol]Or dered By: Светлана Mast on 03-09-2025 MCHC (RBC) [Mass/Vol] 33.9 g/dL 32.5-35.6 [facility] MCV [Entitic volume] by Auto mated countOrdered By: Светлана Mast on 03-09-2025 MCV (RBC) [Entitic vol] 89.5 fL Normal 83.5-101 [facility] Comment on above: Performed By: #### L IPID, CBC, URMACRERAT, EBS A1C, CMP wRFX A1C #### [facility] [address] MicroAlb Creat Ratio,Uon Creatinine, Urine (Random) 124.00 mg/dL Normal [facility] Comment on above: Result Comment: No r eference range established Performed By: #### L IPID, CBC, URMACRERAT, EBS A1C, CMP wRFX A1C #### [facility] [address] Microalbumin/Creatinine Ratio 11.3 mg/g Normal 0.0-30.0 [facility] Comment on above: Result Comment: 30-3 00 mg/g indicates an increased risk for diabetic nephropathy. Greater than 300 mg/g is consistent with clinical nephropathy. (Am. J. Kidney Disease 1995, 25:107) PERFORMED BY: [place] [address] PATHOLOGIST SOLUTIONS OPERATOR ROHAN PAUL M.D. Performed By: #### L IPID, CBC, URMACRERAT, EBS A1C, CMP wRFX A1C #### [facility] [address] [place] [address] [place] Microalbumin [Mass/volume] i n UrineOrdered By: Светлана Mast on 03-09-2025 Albumin DL <= 20 mg/L (U) [Mass/Vol] 1.4 mg/dL Normal 0.0-1.8 [facility] Comment on above: Performed By: #### L IPID, CBC, URMACRERAT, EBS A1C, CMP wRFX A1C #### [facility] [address] [place] [address] [place] Monocytes [#/volume] in Bloo d by Automated countOrdered By: Светлана Mast on 03-09-2025 Monocytes (Bld) [#/Vol] 0.4 10*3/uL Normal 0.0-0.8 [facility] Comment on above: Performed By: #### L IPID, CBC, URMACRERAT, EBS A1C, CMP wRFX A1C #### [facility] [address] [place] [address] [place] Monocytes/100 leukocytes in Blood by Automated countOrdered By: Светлана Mast on 03-09-2025 Monocytes/100 WBC (Bld) 5.6 % Normal . [facility] Comment on above: Performed By: #### L IPID, CBC, URMACRERAT, EBS A1C, CMP wRFX A1C #### [facility] [address] [place] [id number] [place] Neutrophils [#/volume] in Bl ood by Automated countOrdered By: Светлана Mast on 03-09-2025 Neutrophils (Bld) [#/Vol] 4.1 10*3/uL Normal 1.8-7.7 [facility] Comment on above: Performed By: #### L IPID, CBC, URMACRERAT, EBS A1C, CMP wRFX A1C #### [facility] [address] [place] [id number] [place] Neutrophils/100 leukocytes i n Blood by Automated countOrdered By: Светлана Mast on 03-09-2025 Neutrophils/100 WBC (Bld) 53.9 % Normal . [facility] Comment on above: Performed By: #### L IPID, CBC, URMACRERAT, EBS A1C, CMP wRFX A1C #### [facility] [address] No Panel InformationOrdered By: Светлана Mast on 03-09-2025 Pharmacy Creatinine Clearance (Chem N/A [facility] Nucleated erythrocytes [Pres ence] in Blood by Automated countOrdered By: Светлана Mast on 03-09-2025 Nucleated RBC Auto Ql (Bld) 0.0 /100{WBC} 0-0.5 [facility] Platelet mean volume [Entiti c volume] in Blood by Automated countOrdered By: Светлана Mast on 03-09-2025 Platelet mean volume (Bld) [Entitic vol] 8.7 fL Normal 6.6-10.1 [facility] Comment on above: Performed By: #### L IPID, CBC, URMACRERAT, EBS A1C, CMP wRFX A1C #### [facility] [address] [place] [address] [place] Platelets [#/volume] in Bloo d by Automated countOrdered By: Светлана Erazo on 03-09-2025 Platelets (Bld) [#/Vol] 194 10*3/uL Normal 150-450 [facility] Comment on above: Performed By: #### L IPID, CBC, URMACRERAT, EBS A1C, CMP wRFX A1C #### [facility] [address] [place] [address] [place] Potassium [Moles/volume] in Serum or PlasmaOrdered By: Светлана Mast on 03-09-2025 Potassium [Moles/Vol] 4.5 mmol/L Normal 3.5-5.1 [facility] Comment on above: Performed By: #### L IPID, CBC, URMACRERAT, EBS A1C, CMP wRFX A1C #### [facility] [address] [place] [address] [place] Protein [Mass/volume] in Ser um or PlasmaOrdered By: Светлана Mast on 03-09-2025 Protein [Mass/Vol] 7.8 g/dL Normal 6.4-8.9 [facility] Comment on above: Performed By: #### L IPID, CBC, URMACRERAT, EBS A1C, CMP wRFX A1C #### [facility] [address] Serum globulin measurement b y calculation (mass/volume)Ordered By: Светлана Erazo on 03-09-2025 Globulin (S) [Mass/Vol] 3.0 g/dL Normal [facility] Comment on above: Performed By: #### L IPID, CBC, URMACRERAT, EBS A1C, CMP wRFX A1C #### [facility] [address] Serum or plasma albumin/glob ulin mass ratioOrdered By: Светлана Erazo on 03-09-2025 Albumin/Globulin [Mass ratio] 1.6 {ratio} Normal [facility] Comment on above: Performed By: #### L IPID, CBC, URMACRERAT, EBS A1C, CMP wRFX A1C #### [facility] [address] [place] [address] Serum or plasma anion gap de terminationOrdered By: Светлана Erazo on 03-09-2025 Anion gap [Moles/Vol] 12.7 mmol/L Normal 6.0-15.0 [facility] Comment on above: Performed By: #### L IPID, CBC, URMACRERAT, EBS A1C, CMP wRFX A1C #### [facility] [address] [place] [address] Serum or plasma total choles terol/high density lipoprotein (HDL) cholesterol mass ratOrdered By: Светлана Erazo on 03-09-2025 Cholesterol.total/Lisbeth sterol in HDL [Mass ratio] 5.8 {ratio} Normal <5.0 [facility] Comment on above: Result Comment: PERF ORMED BY: [place] [address] PATHOLOGIST SOLUTIONS OPERATOR ROHAN PAUL M.D. Performed By: #### L IPID, CBC, URMACRERAT, EBS A1C, CMP wRFX A1C #### [facility] [address] [place] [id number] [place] Sodium [Moles/volume] in Ser um or PlasmaOrdered By: Светлана Mast on 03-09-2025 Sodium [Moles/Vol] 138 mmol/L Normal 136-145 [facility] Comment on above: Performed By: #### L IPID, CBC, URMACRERAT, EBS A1C, CMP wRFX A1C #### [facility] [address] [place] [id number] [place] Triglyceride [Mass/volume] i n Serum or PlasmaOrdered By: [facility] on 03-09-2025 Triglyceride [Mass/Vol] 151 mg/dL High 0-149 [facility] Comment on above: TRIG ATP III CLASSIF ICATIONTRIG less than 150 mg/dL NormalTRIG 150-199 mg/dL Borderline highTRIG 200-500 mg/dL High TRIG greater than 500 mg/dL Very highStandard traceable to the Center for Disease Conrtrol and Prevention (CDC) test method. Urea nitrogen [Mass/volume] in Serum or PlasmaOrdered By: СветланаUC [facility] on 03-09-2025 Urea nitrogen [Mass/Vol] 23 mg/dL Normal 7-25 [facility] Comment on above: Performed By: #### L IPID, CBC, URMACRERAT, EBS A1C, CMP wRFX A1C #### [facility] [address] [place] [id number] [facility] Urine microalbumin/creatinin e mass ratioOrdered By: [facility] on 03-09-2025 Albumin/Creatinine DL <= 20 mg/L (U) [Mass ratio] 11.3 mg/g 0.0-30.0 [facility] Comment on above: 30-300 mg/g indicate s an increased risk for diabetic nephropathy. Greater than 300 mg/g is consistent with clinical nephropathy. (Am. J. Kidney Disease 1995, 25:107) Ambulatory Visit Summaryon 0 02-23-2025 Ambulatory Visit [...] with SCOTTY VO, Devendra Romero, URL When: Where: [address] [place] [id number] Medications What How Much When Instructions Unchanged [...] near your rectum, especially while sitting. ??? [place]-colored urine due to small amounts of blood in your urine. ??? A burning feeling while urinating. ??? Blood in your stool (feces) or bleeding from your rectum. ??? Blood in your semen. Follow these instructions at home: Medicines ??? Take xyvb-ygn-czizmml and prescription medicines only as told by [...] medicine. (more content not included)... Normal [facility] Urology Office/Clinic Noteon 02-23-2025 Urology Office/Clinic [...] Contact Information SCOTTY VO, Devendra Romero, URL [address] [place] [address] [place] [address] Additional Instructions: sched confirmatory TRUS/bx Patient Education [...] diphtheria/pertussis, acel/tetanus adult 12/17/2022 Recorded SARS-CoV-2 (COVID-19) [id number] 06/02/2022 Recorded zoster vaccine, inactivated 04/19/2022 Recorded influenza virus vaccine, inactivated 04/08/2022 Recorded zoster vaccine, inactivated 01/11/2022 Recorded SARS-CoV-2 (COVID-19) mRN (more content not included)... Normal [facility] Comment on above: Result Comment: Elec tronically Signed By: Devendra MINER MD\.br\Date and Time Signed: 02/23/25 08:32 EDT\.br\Electronically Co-Signed By: April Jhaveri\.br\Date and Time Co-Signed: 02/23/25 08:27 EDT PSA Totalon 02-17-2025 PSA Total 3.5 ng/mL Normal 0.1-3.5 [facility] Comment on above: Result Comment: The concentration of PSA determined by different manufacturers can vary due to differences in assay methods and reagent specificity. Values obtained from different assay methods cannot be used interchangeably. The methodology used for this result was chemiluminescence using [employer]'s Access Hybritech PSA reagent. Performed By: #### 1 [id number] #### [facility] [address] [place] [id number] HbA1c HPLC (Bld) [Mass fract ion]on 11-08-2024 HbA1c (Bld) [Mass fraction] Hemoglobin A1c/Hemoglobin.total in Blood by HPLC [facility] Ambulatory Visit Summaryon 0 07-21-2024 Ambulatory Visit [...] Devendra MINER MD Where: [facility] [place] [address]- You Need to Schedule the Following Appointments Follow Up with Devendra MINER MD, URL When: Where: [facility] [address] [place] [address]- Medications What How Much When Instructions Unchanged [...] the c (more content not included)... Normal [facility] Urology Office/Clinic Noteon 07-21-2024 Urology Office/Clinic Note [...] [facility] [address], [place] [address]- Additional Instructions: 6 mos with PSA () Patient Education Prostate Cancer IDebbie, personally scribed for Dr. Miner on 07/21/2024 08:24:07. . Documentation recorded by the scribe, Debbie [...] diphtheria/pertussis, acel/tetanus adult 12/17/2022 Recorded SARS-CoV-2 (COVID-19) [id number] 06/02/2022 Recorded zoster vaccine, inactivated 04/19/2022 Recorded influenza virus vaccine, inactivated 04/08/2022 Recorded zoster vaccine, inactivated 01/11/2022 Recorded SARS-CoV-2 (COVID-19) mRNA-1273 vaccine 05/21/2021 Recorded influenza virus vaccine, inactivated 03/01/2021 Recorded SARS-CoV-2 (COVID-19) mRNA-1273 vaccine 08/01/2020 Recorded SARS-CoV-2 (COVID-19) mRNA-1273 vaccine 07/04/2020 Recorded influenza virus vaccine, inactivated 03/09/2020 Recorded influenza vi (more content not included)... Normal [facility] Comment on above: Result Comment: Elec tronically Signed By: Devendra MINER MD\.br\Date and Time Signed: 07/21/24 08:26 EST\.br\Electronically Co-Signed By: Debbie Mario\.br\Date and Time Co-Signed: 07/21/24 08:24 EST CHEMISTRYOrdered By: SYSTEM SYSTEM on 07-14-2024 Prostate specific Ag [Mass/Vol] 2.9 ng/mL Normal 0.1 - 3.5 ng/mL [employer] Comment on above: Interpretive Data: T he concentration of PSA determined by different manufacturers can vary due to differences in assay methods and reagent specificity. Values obtained from different assay methods cannot be used interchangeably. The methodology used for this result was chemiluminescence using [employer]'s Access Hybritech PSA reagent. PSA Totalon 07-14-2024 Prostate specific Ag [Mass/Vol] 2.9 ng/mL Normal 0.1-3.5 [facility] Comment on above: Result Comment: The concentration of PSA determined by different manufacturers can vary due to differences in assay methods and reagent specificity. Values obtained from different assay methods cannot be used interchangeably. The methodology used for this result was chemiluminescence using [employer]'s Access Hybritech PSA reagent. Performed By: #### 1 [id number] #### [facility] [address] [place] [address] Alanine aminotransferase [En zymatic activity/volume] in Serum or PlasmaOrdered By: Светлана Erazo on 04-14-2024 ALT [Catalytic activity/Vol] 25 U/L Normal 7-52 [facility] Comment on above: Order Comment: OCTAVIANO GARCIAKW Performed By: #### C BC, LIPID, PSAS W RFX, URMACRERAT, CMP #### [facility] [address] Albumin [Mass/volume] in Ser um or Plasma by Bromocresol green (BCG) dye binding methoOrdered By: Светлана Erazo on 04-14-2024 Albumin BCG dye [Mass/Vol] 4.6 g/dL 3.5-5.7 [facility] Alkaline phosphatase [Enzyma tic activity/volume] in Serum or PlasmaOrdered By: Светлана Erazo on 04-14-2024 ALP [Catalytic activity/Vol] 58 U/L Normal 34-104 [facility] Comment on above: Order Comment: OCTAVIANO PARRAJKW Performed By: #### C BC, LIPID, PSAS W RFX, URMACRERAT, CMP #### [facility] [address] [place] [id number] [place] Aspartate aminotransferase [ Enzymatic activity/volume] in Serum or PlasmaOrdered By: Светлана Mast on 04-14-2024 AST [Catalytic activity/Vol] 20 U/L Normal 13-39 [facility] Comment on above: Order Comment: OCTAVIANO THORNTONRohanJKW Performed By: #### C BC, LIPID, PSAS W RFX, URMACRERAT, CMP #### [address] Automated basophil %Ordered By: Светлана Mast on 04-14-2024 Basophils/100 WBC (Bld) 1.0 % Normal . [facility] Comment on above: Performed By: #### C BC, LIPID, PSAS W RFX, URMACRERAT, CMP #### [address] Automated basophil countOrde red By: Светлана Mast on 04-14-2024 Basophils (Bld) [#/Vol] 0.1 10*3/uL Normal 0.0-0.2 [facility] Comment on above: Result Comment: PERF ORMED BY: [place] [address] PATHOLOGIST SOLUTIONS OPERATOR JEAN-PIERRE ALFARO M.D. Performed By: #### C BC, LIPID, PSAS W RFX, URMACRERAT, CMP #### [address] Automated blood monocyte cou ntOrdered By: Светлана Mast on 04-14-2024 Monocytes (Bld) [#/Vol] 0.5 10*3/uL Normal 0.0-0.8 [facility] Comment on above: Performed By: #### C BC, LIPID, PSAS W RFX, URMACRERAT, CMP #### [address] Automated eosinophil %Ordere d By: Светлана Mast on 04-14-2024 Eosinophils/100 WBC (Bld) 5.6 % Normal . [facility] Comment on above: Performed By: #### C BC, LIPID, PSAS W RFX, URMACRERAT, CMP #### [facility] [address] Automated eosinophil countOr dered By: Светлана Mast on 04-14-2024 Eosinophils (Bld) [#/Vol] 0.4 10*3/uL Normal 0.0-0.45 [facility] Comment on above: Performed By: #### C BC, LIPID, PSAS W RFX, URMACRERAT, CMP #### [facility] [address] Automated monocyte %Ordered By: Светлана Mast on 04-14-2024 Monocytes/100 WBC (Bld) 7.8 % Normal . [facility] Comment on above: Performed By: #### C BC, LIPID, PSAS W RFX, URMACRERAT, CMP #### [address] Automated neutrophil %Ordere d By: Светлана Mast on 04-14-2024 Neutrophils/100 WBC (Bld) 54.0 % Normal . [facility] Comment on above: Performed By: #### C BC, LIPID, PSAS W RFX, URMACRERAT, CMP #### [address] Bilirubin.total [Mass/volume ] in Serum or PlasmaOrdered By: Светлана Mast on 04-14-2024 Bilirubin [Mass/Vol] 0.6 mg/dL Normal 0.3-1.0 [facility] Comment on above: Order Comment: [email or web address] [email or web address] Performed By: #### C BC, LIPID, PSAS W RFX, URMACRERAT, CMP #### [address] Calcium [Mass/volume] in Ser um or PlasmaOrdered By: Светлана Mast on 04-14-2024 Calcium [Mass/Vol] 9.9 mg/dL Normal 8.6-10.3 [facility] Comment on above: Order Comment: [email or web address] [email or web address] Performed By: #### C BC, LIPID, PSAS W RFX, URMACRERAT, CMP #### [facility] [address] [place] [address] [place] Carbon dioxide, total [Moles /volume] in Serum or PlasmaOrdered By: Светлана Erazo on 04-14-2024 CO2 [Moles/Vol] 29.1 mmol/L Normal 21.0-31.[address] [facility] Comment on above: Order Comment: OCTAVIANO GARCIAKW Performed By: #### C BC, LIPID, PSAS W RFX, URMACRERAT, CMP #### [facility] [address] [place] [address] [place] Chloride [Moles/volume] in S mani or PlasmaOrdered By: Светлана Erazo on 04-14-2024 Chloride [Moles/Vol] 102 mmol/L Normal 98-107 [facility] Comment on above: Order Comment: OCTAVIANO GARCIAKW Performed By: #### C BC, LIPID, PSAS W RFX, URMACRERAT, CMP #### [facility] [address] [place] [id number] [place] Cholesterol [Mass/volume] in Serum or PlasmaOrdered By: Светлана Erazo on 04-14-2024 Cholesterol [Mass/Vol] 194 mg/dL Normal 140-200 [facility] Comment on above: Chol less than 200 m g/dl low riskChol 201-239 mg/dl borderline riskChol 240 mg/dl and greater high risk Order Comment: OCTAVIANO GARCIAKW Result Comment: Chol less than 200 mg/dl low risk Chol 201-239 mg/dl borderline risk Chol 240 mg/dl and greater high risk Performed By: #### C BC, LIPID, PSAS W RFX, URMACRERAT, CMP #### [facility] [address] [place] [id number] [place] Cholesterol in LDL Calc [Mas s/Vol]Ordered By: Светлана Erazo on 04-14-2024 Cholesterol in LDL [Mass/Vol] 134 mg/dL High 0-100 [facility] Comment on above: LDL ATP III CLASSIFI CATIONLDL less than 100 mg/dL OptimalLDL 100-129 mg/dL Near or above optimalLDL 130-159 mg/dL Borderline highLDL 160-189 mg/dL HighLDL greater than 189 mg/dL Very high Cholesterol in VLDL Calc [Ma ss/Vol]Ordered By: Светлана Erazo on 04-14-2024 Cholesterol in VLDL [Mass/Vol] 30 mg/dL [facility] Complete Blood Count Auto Di ffon 04-14-2024 Mean Corpuscular HGB Conc 34.4 g/dL Normal 32.5-35.6 [facility] Comment on above: Performed By: #### C BC, LIPID, PSAS W RFX, URMACRERAT, CMP #### [facility] [address] NRBC% 0.1 /100{WBC} Normal 0-0.5 [facility] Comment on above: Performed By: #### C BC, LIPID, PSAS W RFX, URMACRERAT, CMP #### [address] Comprehensive Metabolic Pane baldemar 04-14-2024 Albumin [Mass/Vol] 4.6 g/dL Normal 3.5-5.7 [facility] Comment on above: Order Comment: [email or web address] [email or web address] Performed By: #### C BC, LIPID, PSAS W RFX, URMACRERAT, CMP #### [address] GFR/1.73 sq M.predicted MDRD (S/P/Bld) [Vol rate/Area] 56.685 mL/min/{1.73_m2} Normal [facility] Comment on above: Order Comment: [email or web address] [email or web address] Performed By: #### C BC, LIPID, PSAS W RFX, URMACRERAT, CMP #### [facility] [address] Creatinine [Mass/volume] in Serum or PlasmaOrdered By: Светлана Erazo on 04-14-2024 Creatinine [Mass/Vol] 1.36 mg/dL High 0.70-1.30 [facility] Comment on above: Order Comment: [email or web address] [email or web address] Performed By: #### C BC, LIPID, PSAS W RFX, URMACRERAT, CMP #### [facility] [address] [place] [address] [place] Creatinine [Mass/volume] in UrineOrdered By: Светлана Erazo on 04-14-2024 Creatinine (U) [Mass/Vol] 87.00 mg/dL [facility] Comment on above: No reference range e stablished Erythrocyte distribution wid th [Ratio] by Automated countOrdered By: Светлана Erazo on 04-14-2024 Erythrocyte distribution width (RBC) [Ratio] 13.4 % Normal 12.0-14.8 [facility] Comment on above: Performed By: #### C BC, LIPID, PSAS W RFX, URMACRERAT, CMP #### [facility] [address] [place] [address] [place] Erythrocytes [#/volume] in B lood by Automated countOrdered By: Светлана Erazo on 04-14-2024 RBC (Bld) [#/Vol] 4.23 10*6/uL Normal 3.90-5.60 [facility] Comment on above: Performed By: #### C BC, LIPID, PSAS W RFX, URMACRERAT, CMP #### [facility] [address] [place] [address] [place] Glucose [Mass/volume] in Ser um or PlasmaOrdered By: Светлана Erazo on 04-14-2024 Glucose [Mass/Vol] 162 mg/dL High 70-100 [facility] Comment on above: ADA recommended refe rence rangeRandom Glucose Reference Range is dependent on time and content of last meal. Glucose of more than 200 mg/dL in a nonstressed, ambulatory subject supports the diagnosis of Diabetes Mellitus. Order Comment: OCTAVIANO [email or web address] Result Comment: [place] om Glucose Reference Range is dependent on time and content of last meal. Glucose of more than 200 mg/dL in a nonstressed, ambulatory subject supports the diagnosis of Diabetes Mellitus. ADA recommended reference range Performed By: #### C BC, LIPID, PSAS W RFX, URMACRERAT, CMP #### [facility] [address] [place] [id number] [place] Hematocrit [Volume Fraction] of Blood by Automated countOrdered By: Светлана Erazo on 04-14-2024 Hematocrit (Bld) [Volume fraction] 38.2 % Low 38.8-50.0 [facility] Comment on above: Performed By: #### C BC, LIPID, PSAS W RFX, URMACRERAT, CMP #### [facility] [address] Hemoglobin [Mass/volume] in BloodOrdered By: Светлана Erazo on 04-14-2024 Hemoglobin (Bld) [Mass/Vol] 13.2 g/dL Normal 13.0-17.0 [facility] Comment on above: Performed By: #### C BC, LIPID, PSAS W RFX, URMACRERAT, CMP #### [facility] [address] Leukocytes [#/volume] correc dariana for nucleated erythrocytes in Blood by Automated counOrdered By: Светлана Castro on 04-14-2024 WBC corrected for nucl RBC Auto (Bld) [#/Vol] 6.2 10*3/uL 4.1-10.5 [facility] Leukocytes [#/volume] in Blo od by Automated countOrdered By: [facility] on 04-14-2024 WBC (Bld) [#/Vol] 6.2 10*3/uL Normal 4.1-10.5 [facility] Comment on above: Performed By: #### C BC, LIPID, PSAS W RFX, URMACRERAT, CMP #### [address] Lipid Panelon 04-14-2024 LDL Cholesterol,Calculated 134 mg/dL High 0-100 [facility] Comment on above: Order Comment: OCTAVIANO PARRAJKW Result Comment: LDL ATP III CLASSIFICATION LDL less than 100 mg/dL Optimal LDL 100-129 mg/dL Near or above optimal LDL 130-159 mg/dL Borderline high LDL 160-189 mg/dL High LDL greater than 189 mg/dL Very high Performed By: #### C BC, LIPID, PSAS W RFX, URMACRERAT, CMP #### [facility] [address] [place] [address] [place] Triglyceride w/Reflex 151 mg/dL High 0-149 [facility] Comment on above: Order Comment: OCTAVIANO GARCIAKW Result Comment: TRIG ATP III CLASSIFICATION TRIG less than 150 mg/dL Normal TRIG 150-199 mg/dL Borderline high TRIG 200-500 mg/dL High TRIG greater than 500 mg/dL Very high Standard traceable to the Center for Disease Conrtrol and Prevention (CDC) test method. Performed By: #### C BC, LIPID, PSAS W RFX, URMACRERAT, CMP #### [address] VLDL CHOLESTEROL 30 mg/dL Normal [facility] Comment on above: Order Comment: OCTAVIANO GARCIAKW Performed By: #### C BC, LIPID, PSAS W RFX, URMACRERAT, CMP #### [address] Lymphocytes [#/volume] in Bl ood by Automated countOrdered By: Светлана Mast on 04-14-2024 Lymphocytes (Bld) [#/Vol] 2.0 10*3/uL Normal 1.00-4.8 [facility] Comment on above: Performed By: #### C BC, LIPID, PSAS W RFX, URMACRERAT, CMP #### [place] [address] [place] Lymphocytes/100 leukocytes i n Blood by Automated countOrdered By: Светлана Mast on 04-14-2024 Lymphocytes/100 WBC (Bld) 31.6 % Normal . [facility] Comment on above: Performed By: #### C BC, LIPID, PSAS W RFX, URMACRERAT, CMP #### [place] [address] [place] MCH [Entitic mass] by Automa dariana countOrdered By: Светлана Mast on 04-14-2024 MCH (RBC) [Entitic mass] 31.2 pg Normal 27.5-35.2 [facility] Comment on above: Performed By: #### C BC, LIPID, PSAS W RFX, URMACRERAT, CMP #### [address] [place] [address] [place] MCHC Auto (RBC) [Mass/Vol]Or dered By: Светлана Erazo on 04-14-2024 MCHC (RBC) [Mass/Vol] 34.4 g/dL 32.5-35.6 [facility] MCV [Entitic volume] by Auto mated countOrdered By: Светлана Erazo on 04-14-2024 MCV (RBC) [Entitic vol] 90.4 fL Normal 83.5-101 [facility] Comment on above: Performed By: #### C BC, LIPID, PSAS W RFX, URMACRERAT, CMP #### [address] MicroAlb Creat Ratio,Uon Creatinine, Urine (Random) 87.00 mg/dL Normal [facility] Comment on above: Result Comment: No r eference range established Performed By: #### C BC, LIPID, PSAS W RFX, URMACRERAT, CMP #### [address] Microalbumin/Creatinine Ratio 33.3 mg/g High 0.0-30.0 [facility] Comment on above: Result Comment: 30-3 00 mg/g indicates an increased risk for diabetic nephropathy. Greater than 300 mg/g is consistent with clinical nephropathy. (Am. J. Kidney Disease 1995, 25:107) PERFORMED BY: [place] [address] PATHOLOGIST SOLUTIONS OPERATOR JEAN-PIERRE ALFARO M.D. Performed By: #### C BC, LIPID, PSAS W RFX, URMACRERAT, CMP #### [facility] [address] [place] [address] Microalbumin [Mass/volume] i n UrineOrdered By: Светлана Erazo on 04-14-2024 Albumin DL <= 20 mg/L (U) [Mass/Vol] 2.9 mg/dL High 0.0-1.8 [facility] Comment on above: Performed By: #### C BC, LIPID, PSAS W RFX, URMACRERAT, CMP #### [facility] [address] Neutrophils [#/volume] in Bl ood by Automated countOrdered By: Светлана Erazo on 04-14-2024 Neutrophils (Bld) [#/Vol] 3.4 10*3/uL Normal 1.8-7.7 [facility] Comment on above: Performed By: #### C BC, LIPID, PSAS W RFX, URMACRERAT, CMP #### [facility] [address] No Panel InformationOrdered By: Светлана Erazo on 04-14-2024 Estimated GFR (CKD-EPI) 56.685 mL/Min [facility] Creatinine Clearance (Chem N/A [facility] Nucleated erythrocytes [Pres ence] in Blood by Automated countOrdered By: Светлана Erazo on 04-14-2024 Nucleated RBC Auto Ql (Bld) 0.1 /100{WBC} 0-0.5 [facility] PSA Screen (Yearly) w/Reflex on 04-14-2024 PSA Screen (Yearly) w/Reflex 2.760 ng/mL Normal 0.000-4.000 [facility] Comment on above: Order Comment: Is pa tient <50 yrs? Medicare does not pay <50.: N What is the date of the last PSA Screen?: NA Is Medicare the insurance?: Y Did you verify eligibility (Dx Time) check TestViewGp: YES TO ALL Result Comment: Seri al tumor marker results determined by assays using different manufacturers or methods may not be comparable. 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 PERFORMED BY: [place] [address] PATHOLOGIST SOLUTIONS OPERATOR JEAN-PIERRE ALFARO M.D. Performed By: #### C BC, LIPID, PSAS W RFX, CHIDI, CMP #### [facility] [address] [place] [address] Platelet mean volume [Entiti c volume] in Blood by Automated countOrdered By: Светлана Erazo on 04-14-2024 Platelet mean volume (Bld) [Entitic vol] 9.2 fL Normal 6.6-10.1 [facility] Comment on above: Performed By: #### C BC, LIPID, PSAS W RFX, URMACRERAT, CMP #### [facility] [address] Platelets [#/volume] in Bloo d by Automated countOrdered By: Светлаан Erazo on 04-14-2024 Platelets (Bld) [#/Vol] 179 10*3/uL Normal 150-450 [facility] Comment on above: Performed By: #### C BC, LIPID, PSAS W RFX, URMACRERAT, CMP #### [facility] [address] Potassium [Moles/volume] in Serum or PlasmaOrdered By: Светлана Erazo on 04-14-2024 Potassium [Moles/Vol] 5.2 mmol/L High 3.5-5.1 [facility] Comment on above: Order Comment: OCTAVIANO GARCIAKW Performed By: #### C BC, LIPID, PSAS W RFX, URMACRERAT, CMP #### [facility] [address] Prostate specific Ag [Mass/v olume] in Serum or PlasmaOrdered By: Светлана Erazo on 04-14-2024 Prostate specific Ag [Mass/Vol] 2.760 ng/mL 0.000-4.000 [facility] Comment on above: Serial tumor marker results determined by assays using different manufacturers or methods may not be comparable.[facility] custom feed corn operator and method:ELLIS [employer] DXI, CHEMILUMINESCENT IMMUNOASSAY. Protein [Mass/volume] in Ser um or PlasmaOrdered By: Светлана Erazo on 04-14-2024 Protein [Mass/Vol] 7.4 g/dL Normal 6.4-8.9 [facility] Comment on above: Order Comment: OCTAVIANO GARCIAKW Performed By: #### C BC, LIPID, PSAS W RFX, URMACRERAT, CMP #### [facility] [address] Serum globulin measurement b y calculation (mass/volume)Ordered By: Светлана Erazo on 04-14-2024 Globulin (S) [Mass/Vol] 2.8 g/dL Normal [facility] Comment on above: Order Comment: OCTAVIANO GARCIAKW Performed By: #### C BC, LIPID, PSAS W RFX, URMACRERAT, CMP #### [facility] [address] Serum or plasma albumin/glob ulin mass ratioOrdered By: Светлана Erazo on 04-14-2024 Albumin/Globulin [Mass ratio] 1.6 {ratio} Normal [facility] Comment on above: Order Comment: OCTAVIANO GARCIAKW Performed By: #### C BC, LIPID, PSAS W RFX, URMACRERAT, CMP #### [facility] [address] [place] [address] Serum or plasma anion gap de terminationOrdered By: Светлана Erazo on 04-14-2024 Anion gap [Moles/Vol] 12.1 mmol/L Normal 6.0-15.0 [facility] Comment on above: Order Comment: OCTAVIANO GARCIAKW Performed By: #### C BC, LIPID, PSAS W RFX, URMACRERAT, CMP #### [facility] [address] [place] [address] Serum or plasma high density lipoprotein (HDL) cholesterol measurementOrdered By: Светлана Erazo on 04-14-2024 Cholesterol in HDL [Mass/Vol] 30 mg/dL Normal 23-92 [facility] Comment on above: HDL CHOL ATP-III CLA SSIFICATION Cardiovascular RiskHDL > or equal to 60 mg/dL LOWHDL < 40 mg/dL HIGH Order Comment: OCTAVIANO GARCIAKW Result Comment: HDL CHOL ATP-III CLASSIFICATION Cardiovascular Risk HDL > or equal to 60 mg/dL LOW HDL < 40 mg/dL HIGH Performed By: #### C BC, LIPID, PSAS W RFX, URMACRERAT, CMP #### [facility] [address] [place] [address] Serum or plasma total choles terol/high density lipoprotein (HDL) cholesterol mass ratOrdered By: Светлана Erazo on 04-14-2024 Cholesterol.total/Lisbeth sterol in HDL [Mass ratio] 6.5 {ratio} Normal <5.0 [facility] Comment on above: Order Comment: OCTAVIANO THORNTON.OdiliaKW Result Comment: PERF ORMED BY: [place] [address] PATHOLOGIST SOLUTIONS OPERATOR JEAN-PIERRE ALFARO M.D. Performed By: #### C BC, LIPID, PSAS W RFX, URMACRERAT, CMP #### [address] Sodium [Moles/volume] in Ser um or PlasmaOrdered By: Светлана Mast on 04-14-2024 Sodium [Moles/Vol] 138 mmol/L Normal 136-145 [facility] Comment on above: Order Comment: OCTAVIANO THORNTON.JKW Performed By: #### C BC, LIPID, PSAS W RFX, URMACRERAT, CMP #### [address] Triglyceride [Mass/volume] i n Serum or PlasmaOrdered By: Светлана Mast on 04-14-2024 Triglyceride [Mass/Vol] 151 mg/dL High 0-149 [facility] Comment on above: TRIG ATP III CLASSIF ICATIONTRIG less than 150 mg/dL NormalTRIG 150-199 mg/dL Borderline highTRIG 200-500 mg/dL High TRIG greater than 500 mg/dL Very highStandard traceable to the Center for Disease Conrtrol and Prevention (CDC) test method. Urea nitrogen [Mass/volume] in Serum or PlasmaOrdered By: Светлана Mast on 04-14-2024 Urea nitrogen [Mass/Vol] 21 mg/dL Normal 7-25 [facility] Comment on above: Order Comment: OCTAVIANO THORNTON.JKW Performed By: #### C BC, LIPID, PSAS W RFX, URMACRERAT, CMP #### [address] Urine microalbumin/creatinin e mass ratioOrdered By: Светлана Mast on 04-14-2024 Albumin/Creatinine DL <= 20 mg/L (U) [Mass ratio] 33.3 mg/g High 0.0-30.0 [facility] Comment on above: 30-300 mg/g indicate s an increased risk for diabetic nephropathy. Greater than 300 mg/g is consistent with clinical nephropathy. (Am. J. Kidney Disease 1995, 25:107) Ambulatory Visit Summaryon 0 02-04-2024 Ambulatory Visit Summary Ambulatory Visit Summary GRETEL TOSCANO :1955 Visit Date:02/04/2024 Ambulatory Visit Instructions Your [...] AM EST With: Where: [facility] [address] [place] [address]- Friday 8:00 AM EST With: Devendra MINER MD Where: [facility] [address] [place] [address]- You Need to Schedule the Following Appointments Follow Up with Devendra MINER MD, URL When: Where: [facility] [address] [place] [address]- Medications What How Much When Instructions Unchanged [...] microscope (prostate (more content not included)... Normal [facility] Urology Office/Clinic Noteon 02-04-2024 Urology Office/Clinic Note Urology Office/Clinic Note Chief Complaint MRI fusion bx HPI Staff PO MRI fusion bx done 01/26/24, here to review path report. Last seen IO 11/05/23. Dx: bladder stone, BPH with obstruction/LUTS, hx of elevated PSA. *Tamsulosin 0.4mg qd PSA 11/05/23 - 4.5 Prostate MRI done 12/25/23 [facility]. S/p Urodynamics 12/30/23. Dysuria: denies pain [...] patient in detail today. Educated pt on Cascade scoring system. I discussed active surveillance protocol with the pt given mid-grade pathology with low volume and favorable PSA. Explained that we do not want to treat him unnecessarily. [employer] prostate cancer booklet was provided. The pt [...] [facility] [address], [place] [address]- Additional Instructions: 6 mos PSA, SAMANTHA Patient Education Prostate Cancer Debbie Estrella, personally scribed for Dr. Miner on 02/04/2024 [...] diphtheria/pertussis, acel/tetanus adult 12/17/2022 Recorded SARS-CoV-2 (COVID-19) [id number] 06/02/2022 Recorded zoster vaccine, inactivated 04/19/2022 Recorded influenza virus vaccine, inactivated 04/08/2022 Recorded zoster vac (more content not included)... Normal [facility] Comment on above: Result Comment: Elec tronically Signed By: Devendra MINER MD\.br\Date and Time Signed: 02/04/24 16:02 EDT\.br\Electronically Co-Signed By: Debbie Mario.br\Date and Time Co-Signed: 02/04/24 16:01 EDT No Panel InformationOrdered By: Devendra Miner on 01-26-2024 Miscellaneous Pathology Test See comment [facility] Comment on above: See report. Scanned copy available in EMR. Creatinine (Bld) [Mass/Vol]O rdered By: Devendra Miner on 12-25-2023 Creatinine [Mass/Vol] 1.6 mg/dL High 0.6-1.3 [facility] Comment on above: ER/ESD physician is notified/shown all ISTAT results.Critical values may be confirmed by laboratory testing ifdeemed necessary by ER attending doctor. No Panel InformationOrdered By: Devendra Miner on 12-25-2023 Bedside Estimated GFR (eGFR) 46.641 [facility] HbA1c HPLC (Bld) [Mass fract ion]on 12-22-2023 HbA1c (Bld) [Mass fraction] 6.8 % [facility] Insurance Correspondenceon 0 11-28-2023 Insurance Correspondence [id number]# 1.00TIFF Normal [facility] PSA Totalon 11-06-2023 Prostate specific Ag [Mass/Vol] 4.5 ng/mL High 0.1-3.5 [facility] Comment on above: Result Comment: The concentration of PSA determined by different manufacturers can vary due to differences in assay methods and reagent specificity. Values obtained from different assay methods cannot be used interchangeably. The methodology used for this result was chemiluminescence using [employer]'s Access Hybritech PSA reagent. Performed By: #### 1 [id number] ####[facility] [address] [place] [address] Ambulatory Visit Summaryon 0 11-05-2023 Ambulatory Visit [...] Scott When: Where: [facility] [address] [place] [address]- Medications What How Much When Instructions Unchanged [...] bones (pelvis (more content not included)... Normal [facility] Patient Educationon 11-05-19 Patient Education [...] these instructions at home: Medicines ? Take kbkz-fao-euwlmbg and prescription medicines only as told by your health care provider. ? Ask your health care provider if the medicine prescribed to you: ? Requires you to avoid driving or using heavy machinery. ? Can cause constipation. You may need to take these actions to prevent or treat constipation: ? Take twym-scn-dvlgfip or prescription medicines. ? Eat foods that [...] (UCF): www.urologyhealth.org (more content not included)... Normal [facility] Urology Office/Clinic Noteon 11-05-2023 Urology Office/Clinic [...] [facility]. Elevated PSA level likely from prostatitis and exacerbated from incomplete emptying. [1] -PSA will be drawn IO today. Follow-up With When Contact Information SCOTTY VO, Devendra Romero, URL [facility] [address], [place] [address]- Additional Instructions: f/u pending uros results, with PVR Patient Education Bladder Stone Delores, Debbie Mario, personally scribed for Dr. Miner [...] diphtheria/pertussis, acel/tetanus adult 12/17/2022 Recorded SARS-CoV-2 (COVID-19) [id number] 06/02/2022 Recorded zoster vaccine, inactivated 04/19/2022 Recorded influenza virus vac (more content not included)... Normal [facility] Comment on above: Result Comment: Elec tronically Signed By: SCOTTY VO, Devendra R\.br\Date and Time Signed: 11/05/23 16:26 EDT\.br\Electronically Co-Signed By: Debbie Mario\.br\Date and Time Co-Signed: 11/05/23 16:21 EDT\.br\Electronically Co-Signed By: Debbie Mario\.br\Date and Time Co-Signed: 11/05/23 16:25 EDT Pathology Noteon 10-22-2023 Pathology Note [id number]#1 .00TIFF [facility] Operative Reporton Operative Report [id number]#1 .00TIFF [facility] Glucose Glucometer (BldC) [M ass/Vol]Ordered By: Devendra Miner on 10-16-2023 Glucose [Mass/Vol] 147 mg/dL [facility] Comment on above: Random Glucose Refer ence Range is dependent on time and content of last meal. Glucose of more than 200 mg/dL in a nonstressed, ambulatory subject supports the diagnosis of Diabetes Mellitus. No Panel InformationOrdered By: Devendra Miner on 10-16-2023 Bedside Glucose #[address]/rn [facility] Bedside Glucose Comment Glu2: cleaned meter [facility] Consent for Procedure/Surger yon 09-19-2023 Consent for Procedure/Surgery [id number]#1 .00TIFF [facility] HbA1c HPLC (Bld) [Mass fract ion]on 09-18-2023 HbA1c (Bld) [Mass fraction] 7.2 % [facility] Lab Reportson 09-18-2023 Lab Reports [id number]#1 .00TIFF [facility] Lab Reports [id number]#1 .00TIFF [facility] Lab Reports [id number] .00TIFF [facility] ECG 12-Leadon 08-15-2023 ECG 12-Lead [id number] .00TIFF [facility] ECG 12-Lead [id number] .00TIFF [facility] Lab Reportson 08-15-2023 Lab Reports [id number] .00TIFF [facility] Lab Reports [id number] .00TIFF [facility] Consent for Procedure/Surger yon 08-05-2023 Consent for Procedure/Surgery [id number] .00TIFF [facility] A1C HEMOGLOBINon 06-02-2023 HbA1c (Bld) [Mass fraction] 7.2 % [employer] Other HbA1c (Bld) [Mass fraction]o n 06-02-2023 A1C HEMOGLOBIN [place] [employer] Other Potassium [Moles/volume] in Serum or PlasmaOrdered By: Светлана Mast on 02-05-2023 Potassium [Moles/Vol] 4.7 mmol/L 3.5-5.1 [facility] Alanine aminotransferase [En zymatic activity/volume] in Serum or PlasmaOrdered By: Светлана Mast on 02-03-2023 ALT [Catalytic activity/Vol] 51 U/L 7-52 [facility] Albumin [Mass/volume] in Ser um or Plasma by Bromocresol green (BCG) dye binding methoOrdered By: Светлана Mast on 02-03-2023 Albumin BCG dye [Mass/Vol] 4.5 g/dL 3.5-5.7 [facility] Alkaline phosphatase [Enzyma tic activity/volume] in Serum or PlasmaOrdered By: Светлана Mast on 02-03-2023 ALP [Catalytic activity/Vol] 52 U/L 34-104 [facility] Aspartate aminotransferase [ Enzymatic activity/volume] in Serum or PlasmaOrdered By: Светлана Mast on 02-03-2023 AST [Catalytic activity/Vol] 31 U/L 13-39 [facility] Basophils Auto (Bld) [#/Vol] Ordered By: Светлана Mast on 02-03-2023 Basophils (Bld) [#/Vol] 0.1 10*3/uL 0.0-0.2 [facility] Basophils/100 WBC Auto (Bld) Ordered By: Светлана Mast on 02-03-2023 Basophils/100 WBC (Bld) 1.0 % . [facility] Bilirubin Test strip Ql (U)O rdered By: Светлана Mast on 02-03-2023 Bilirubin Ql (U) Negative Negative [facility] Bilirubin.total [Mass/volume ] in Serum or PlasmaOrdered By: Светлана Mast on 02-03-2023 Bilirubin [Mass/Vol] 0.5 mg/dL 0.3-1.0 [facility] Calcium [Mass/volume] in Ser um or PlasmaOrdered By: Светлана Mast on 02-03-2023 Calcium [Mass/Vol] 9.6 mg/dL 8.6-10.3 [facility] Carbon dioxide, total [Moles /volume] in Serum or PlasmaOrdered By: Светлана Mast on 02-03-2023 CO2 [Moles/Vol] 26.4 mmol/L 21.0-31.[address] [facility] Chloride [Moles/volume] in S mani or PlasmaOrdered By: Светлана Mast on 02-03-2023 Chloride [Moles/Vol] 105 mmol/L 98-107 [facility] Cholesterol [Mass/volume] in Serum or PlasmaOrdered By: Светлана Mast on 02-03-2023 Cholesterol [Mass/Vol] 202 mg/dL 140-200 [facility] Comment on above: Chol less than 200 m g/dl low riskChol 201-239 mg/dl borderline riskChol 240 mg/dl and greater high risk Cholesterol in LDL Calc [Mas s/Vol]Ordered By: Светлана Erazo on 02-03-2023 Cholesterol in LDL [Mass/Vol] 129 mg/dL 0-100 [facility] Comment on above: LDL ATP III CLASSIFI CATIONLDL less than 100 mg/dL OptimalLDL 100-129 mg/dL Near or above optimalLDL 130-159 mg/dL Borderline highLDL 160-189 mg/dL HighLDL greater than 189 mg/dL Very high Cholesterol in VLDL Calc [Ma ss/Vol]Ordered By: Светлана Erazo on 02-03-2023 Cholesterol in VLDL [Mass/Vol] 44 mg/dL [facility] Color Auto (U)Ordered By: Bradford Erazo on 02-03-2023 Color (U) Yellow Yellow [facility] Creatinine [Mass/volume] in Serum or PlasmaOrdered By: Светлана Mast on 02-03-2023 Creatinine [Mass/Vol] 1.31 mg/dL 0.70-1.30 [facility] Creatinine [Mass/volume] in UrineOrdered By: Светлана Mast on 02-03-2023 Creatinine (U) [Mass/Vol] 100.0 mg/dL 14.0-26.0 [facility] Eosinophils Auto (Bld) [#/Vo l]Ordered By: Светлана Mast on 02-03-2023 Eosinophils (Bld) [#/Vol] 0.4 10*3/uL 0.0-0.45 [facility] Eosinophils/100 WBC Auto (Bl d)Ordered By: [facility] on 02-03-2023 Eosinophils/100 WBC (Bld) 6.6 % . [facility] Erythrocyte distribution wid th Auto (RBC) [Ratio]Ordered By: [facility] on 02-03-2023 Erythrocyte distribution width (RBC) [Ratio] 13.3 % 12.0-14.8 [facility] Globulin Calc (S) [Mass/Vol] Ordered By: [facility] on 02-03-2023 Globulin (S) [Mass/Vol] 2.7 g/dL [facility] Glucose [Mass/volume] in Ser um or PlasmaOrdered By: [facility] on 02-03-2023 Glucose [Mass/Vol] 163 mg/dL 70-100 [facility] Comment on above: ADA recommended refe rence rangeRandom Glucose Reference Range is dependent on time and content of last meal. Glucose of more than 200 mg/dL in a nonstressed, ambulatory subject supports the diagnosis of Diabetes Mellitus. Glucose mean value [Mass/vol ume] in Blood Estimated from glycated hemoglobinOrdered By: [facility] on 02-03-2023 Average glucose Estimated from glycated hemoglobin (Bld) [Mass/Vol] 169 mg/dL [facility] Hematocrit Auto (Bld) [Volum e fraction]Ordered By: [facility] on 02-03-2023 Hematocrit (Bld) [Volume fraction] 37.7 % 38.8-50.0 [facility] Hemoglobin A1c percentageOrd ered By: [facility] on 02-03-2023 HbA1c (Bld) [Mass fraction] 7.5 % 4.3-5.6 [facility] Comment on above: Increased risk for d iabetes: 5.7 - 6.4diabetes: >6.4glycemic control for adults with diabetes: <7.0 Hemoglobin [Mass/volume] in BloodOrdered By: [facility] on 02-03-2023 Hemoglobin (Bld) [Mass/Vol] 12.8 g/dL 13.0-17.0 [facility] Ketones Auto test strip (U) [Mass/Vol]Ordered By: [facility] on 02-03-2023 Ketones (U) [Mass/Vol] Negative Negative [facility] Leukocytes [#/volume] correc dariana for nucleated erythrocytes in Blood by Automated counOrdered By: Светлана Mast on 02-03-2023 WBC corrected for nucl RBC Auto (Bld) [#/Vol] 6.5 10*3/uL 4.1-10.5 [facility] Lymphocytes Auto (Bld) [#/Vo l]Ordered By: Светлана Mast on 02-03-2023 Lymphocytes (Bld) [#/Vol] 2.4 10*3/uL 1.00-4.8 [facility] Lymphocytes/100 WBC Auto (Bl d)Ordered By: Светлана Mast on 02-03-2023 Lymphocytes/100 WBC (Bld) 36.5 % . [facility] MCH Auto (RBC) [Entitic mass ]Ordered By: Светлана Mast on 02-03-2023 MCH (RBC) [Entitic mass] 30.3 pg 27.5-35.2 [facility] MCHC Auto (RBC) [Mass/Vol]Or dered By: Светлана Mast on 02-03-2023 MCHC (RBC) [Mass/Vol] 34.0 g/dL 32.5-35.6 [facility] MCV Auto (RBC) [Entitic vol] Ordered By: Светлана Mast on 02-03-2023 MCV (RBC) [Entitic vol] 89.0 fL 83.5-101 [facility] Microalbumin [Mass/volume] i n UrineOrdered By: Светлана Mast on 02-03-2023 Albumin DL <= 20 mg/L (U) [Mass/Vol] 3.5 mg/dL 0.0-1.8 [facility] Monocytes Auto (Bld) [#/Vol] Ordered By: Светлана Mast on 02-03-2023 Monocytes (Bld) [#/Vol] 0.5 10*3/uL 0.0-0.8 [facility] Monocytes/100 WBC Auto (Bld) Ordered By: Светлана Mast on 02-03-2023 Monocytes/100 WBC (Bld) 7.2 % . [facility] Neutrophils Auto (Bld) [#/Vo l]Ordered By: Светлана Mast on 02-03-2023 Neutrophils (Bld) [#/Vol] 3.2 10*3/uL 1.8-7.7 [facility] Neutrophils/100 WBC Auto (Bl d)Ordered By: Светлана Erazo on 02-03-2023 Neutrophils/100 WBC (Bld) 48.7 % . [facility] Nitrite Test strip Ql (U)Ord ered By: Светлана Erazo on 02-03-2023 Nitrite Ql (U) Negative Negative [facility] No Panel InformationOrdered By: Светлана Erazo on 02-03-2023 Estimated GFR (CKD-EPI) 59.660 mL/Min [facility] Creatinine Clearance (Chem N/A [facility] Nucleated erythrocytes [Pres ence] in Blood by Automated countOrdered By: Светлана Erazo on 02-03-2023 Nucleated RBC Auto Ql (Bld) 0.1 /100{WBC} 0-0.5 [facility] Platelet mean volume Auto (B ld) [Entitic vol]Ordered By: Светлана Erazo on 02-03-2023 Platelet mean volume (Bld) [Entitic vol] 9.3 fL 6.6-10.1 [facility] Platelets Auto (Bld) [#/Vol] Ordered By: Светлана Castro on 02-03-2023 Platelets (Bld) [#/Vol] 156 10*3/uL 150-450 [facility] Potassium [Moles/volume] in Serum or PlasmaOrdered By: Светлана Castro on 02-03-2023 Potassium [Moles/Vol] See comment 3.5-5.1 [facility] Comment on above: Specimen hemolyzed, redraw requested Protein Auto test strip (U) [Mass/Vol]Ordered By: Светлана Erazo on 02-03-2023 Protein (U) [Mass/Vol] Negative Negative [facility] Protein [Mass/volume] in Ser um or PlasmaOrdered By: Светлана Erazo on 02-03-2023 Protein [Mass/Vol] 7.2 g/dL 6.4-8.9 [facility] RBC Auto (Bld) [#/Vol]Ordere d By: Светлана Mast on 02-03-2023 RBC (Bld) [#/Vol] 4.24 10*6/uL 3.90-5.60 [facility] Serum or plasma albumin/glob ulin mass ratioOrdered By: Светлана Erazo on 02-03-2023 Albumin/Globulin [Mass ratio] 1.7 {ratio} [facility] Serum or plasma anion gap de terminationOrdered By: Светлана Erazo on 02-03-2023 Anion gap [Moles/Vol] TNP [facility] Comment on above: Test not performed Serum or plasma high density lipoprotein (HDL) cholesterol measurementOrdered By: Светлана Erazo on 02-03-2023 Cholesterol in HDL [Mass/Vol] 29 mg/dL 23- [facility] Comment on above: HDL CHOL ATP-III CLA SSIFICATION Cardiovascular RiskHDL > or equal to 60 mg/dL LOWHDL < 40 mg/dL HIGH Serum or plasma total choles terol/high density lipoprotein (HDL) cholesterol mass ratOrdered By: Светлана Erazo on 02-03-2023 Cholesterol.total/Lisbeth sterol in HDL [Mass ratio] 7.0 {ratio} <5.0 [facility] Sodium [Moles/volume] in Ser um or PlasmaOrdered By: Светлана Erazo on 02-03-2023 Sodium [Moles/Vol] 138 mmol/L 136-145 [facility] Specific gravity Auto test s trip (U) [Rel density]Ordered By: Светлана Erazo on 02-03-2023 Specific gravity (U) [Rel density] 1.018 1.001-1.030 [facility] Triglyceride [Mass/volume] i n Serum or PlasmaOrdered By: Светлана Erazo on 02-03-2023 Triglyceride [Mass/Vol] 222 mg/dL 0-149 [facility] Comment on above: TRIG ATP III CLASSIF ICATIONTRIG less than 150 mg/dL NormalTRIG 150-199 mg/dL Borderline highTRIG 200-500 mg/dL High TRIG greater than 500 mg/dL Very highStandard traceable to the Center for Disease Conrtrol and Prevention (CDC) test method. Urea nitrogen [Mass/volume] in Serum or PlasmaOrdered By: Светлана Erazo on 02-03-2023 Urea nitrogen [Mass/Vol] 30 mg/dL 7- [facility] Urine clarity by refractomet ry automatedOrdered By: Светлана Erazo on 02-03-2023 Clarity Refractometry automated (U) Clear Clear [facility] Urine glucose measurement by automated test strip (mass/volume)Ordered By: [facility] on 02-03-2023 Glucose Auto test strip (U) [Mass/Vol] Normal mg/dL Normal [facility] Urine hemoglobin detection b y automated test stripOrdered By: [facility] on 02-03-2023 Hemoglobin Auto test strip Ql (U) Negative Negative [facility] Urine leukocyte esterase det ection by automated test stripOrdered By: [facility] on 02-03-2023 Leukocyte esterase Auto test strip Ql (U) Negative Negative [facility] Urine microalbumin/creatinin e mass ratioOrdered By: [facility] on 02-03-2023 Albumin/Creatinine DL <= 20 mg/L (U) [Mass ratio] 35.0 mg/g 0.0-30.0 [facility] Comment on above: 30-300 mg/g indicate s an increased risk for diabetic nephropathy. Greater than 300 mg/g is consistent with clinical nephropathy. (Am. J. Kidney Disease 1995, 25:107) Urobilinogen Auto test strip (U) [Mass/Vol]Ordered By: [facility] on 02-03-2023 Urobilinogen (U) [Mass/Vol] Normal mg/dL Normal [facility] WBC Auto (Bld) [#/Vol]Ordere d By: [facility] on 02-03-2023 WBC (Bld) [#/Vol] 6.5 10*3/uL 4.1-10.5 [facility] pH Auto test strip (U)Ordere d By: [facility] on 02-03-2023 pH (U) 5.0 [pH] 5.0-9.0 [facility] - Molecular patho logyon 06-27-2022 Noninvasive colorectal cancer DNA and occult blood screening Ted (Stl) [Interp] Positive Abnormal Negative -[facility] Work Phone: Comment on above: [employer] (CLIA #:[id number])[address] [place] [address] DEBBY BARRIOS , Clinical Laboratory Medical DirectorPOSITIVE [...] screened with both Cologuard and colonoscopy. (Berto Beckham. et al, N Engl J Med 2014;370(14):2388-3080.) Cologuard may produce a false negative or false positive result (no colorectal cancer or precancerous polyp present at colonoscopy follow up). A negative Cologuard test result does not guarantee the absence of CRC or advanced adenoma (pre-cancer). The current Cologuard screening interval is every 3 years. ([place] Cancer Society and U.S. Multi-Society Task Force). Cologuard performance data in a 10,000 patient pivotal study using colonoscopy as the reference method can be accessed at the following location: www.[email or web address].[employer]/results. Additional description of the Cologuard test process, warnings and precautions can be found at [email or web address]. Blood Pressure Cuff Sizeon 1 08-15-2021 Adult depression screening assessment No [employer] Work Phone: Fall risk assessment a) No falls within the last year [employer] Work Phone: Tobacco use status CPHS b) No M [employer] Work Phone: Blood Pressure Cuff Size Adult [employer] Work Phone: Office Visit (Internal Medic ine)on [...] for colorectal cancer Cologuard Screening; Status:Active; Requested for:[id number]; Perform:Cologuard Non [facility]; Due:12Sep2022;Ordered ; For:Screening for [...] mellitus; YADI = N; Verified Transmission to [facility] [address]; Last Updated By: Nakia Buckley; 06/14/2022 9:05:16 AM Continue: OneTouch Delica Plus [id number]; Use 3 times daily as directed Rx [...] discussed...declines get cards dr. pablo e(dr majano.. [facility]) same program Provider Impressions dm ok control [...] [Moles/Vol] 13 mmol/L Normal 10 - 20 [facility] Comment on above: Order Comment: PATIE NT FASTING Performed By: #### B MP #### [facility] [address] [place] [address] Calcium [Mass/Vol] 9.9 mg/dL Normal 8.6 - 10.6 [facility] Comment on above: Order Comment: PATIE NT FASTING Performed By: #### B MP #### [facility] [address] [place] [address] Chloride [Moles/Vol] 103 mmol/L Normal 98 - 107 [facility] Comment on above: Order Comment: PATIE NT FASTING Performed By: #### B MP #### [facility] [address] [place] [address] Creatinine [Mass/Vol] 1.33 mg/dL High 0.50 - 1.30 [facility] Comment on above: Order Comment: PATIE NT FASTING Performed By: #### B MP #### [facility] [address] [place] [address] GFR/1.73 sq M.predicted among non-blacks MDRD (S/P/Bld) [Vol rate/Area] 59 mL/min/{1.73_m2} Abnormal >90 [facility] Comment on above: Order Comment: PATIE NT FASTING Result Comment: CALC ULATIONS OF ESTIMATED GFR ARE PERFORMED USING THE 2020 CKD-EPI STUDY REFIT EQUATION WITHOUT THE RACE VARIABLE FOR THE IDMS-TRACEABLE CREATININE METHODS. https://jasn.asnjournals.org/content/early/ASN.2020 875509 Performed By: #### B MP #### [facility] [address] [place] [address] Glucose [Mass/Vol] 177 mg/dL High 74 - 99 [facility] Comment on above: Order Comment: PATIE NT FASTING Performed By: #### B MP #### [facility] [address] [place] [address] HCO3 (Bld) [Moles/Vol] 26 mmol/L Normal 21 - 32 [facility] Comment on above: Order Comment: PATIE NT FASTING Performed By: #### B MP #### [facility] [address] [place] [address] Potassium [Moles/Vol] 5.3 mmol/L Normal 3.5 - 5.3 [facility] Comment on above: Order Comment: PATIE NT FASTING Performed By: #### B MP #### [facility] [address] [place] [address] Sodium [Moles/Vol] 137 mmol/L Normal 136 - 145 [facility] Comment on above: Order Comment: PATIE NT FASTING Performed By: #### B MP #### [facility] [address] [place] [address] Urea nitrogen [Mass/Vol] 31 mg/dL High 6 - 23 [facility] Comment on above: Order Comment: PATIE NT FASTING Performed By: #### B MP #### [place] [address] [place] [address] HEMOGLOBIN A1Con 06-07-2022 Glucose [Mass/Vol] 160 mg/dL Normal [facility] Comment on above: Order Comment: PATIE NT FASTING Performed By: #### H BA1E #### [facility] [address] [place] [address] HbA1c (Bld) [Mass fraction] 7.2 % Abnormal [facility] Comment on above: Order Comment: PATIE NT FASTING Result Comment: Diag nosis of Diabetes-Adults Non-Diabetic: < or = 5.6% Increased risk for developing diabetes: 5.7-6.4% Diagnostic of diabetes: > or = 6.5% . Monitoring of Diabetes Age (y) Therapeutic Goal (%) Adults: >18 <7.0 Pediatrics: 13-18 <7.5 7-12 <8.0 0- 6 7.5-8.5 [place] [employer]. Diabetes Care 33(S1), Jun 2009. Performed By: #### H BA1E #### [facility] [address] [place] [address] Hemoglobin A1Con 06-07-2022 Glucose [Mass/Vol] 160 mg/dL [facility] Work Phone: HbA1c (Bld) [Mass fraction] 7.2 % Abnormal [facility] Work Phone: Comment on above: Diagnosis of Diabete s-Adults Non-Diabetic: < or = 5.6% Increased risk for developing diabetes: 5.7-6.4% Diagnostic of diabetes: > or = 6.5%. Monitoring of Diabetes Age (y) Therapeutic Goal (%) Adults: >18 <7.0 Pediatrics: 13-18 <7.5 7-12 <8.0 0- 6 7.5-8.5 [place] [employer]. Diabetes Care 33(S1), Jun 2009. LIPID PANEL (CORONARY RISK 2 )on 06-07-2022 Cholesterol [Mass/Vol] 196 mg/dL Normal 0 - 199 [facility] Comment on above: Order Comment: MARE LINARES FASTING Result Comment: . AGE DESIRABLE BORDERLINE [...] Performed By: #### L IPID #### [facility] [address] [place] [address] Cholesterol in HDL [Mass/Vol] 30.1 mg/dL Abnormal [facility] Comment on above: Order Comment: MARE NT FASTING Result Comment: . AGE VERY LOW LOW NORMAL HIGH 0-19 Y < 35 < 40 40-45 ---- 20-24 Y ---- < 40 >45 ---- >24 Y ---- < 40 40-60 >60 . Performed By: #### L IPID #### [facility] [address] [place] [address] Cholesterol in LDL [Mass/Vol] 134 mg/dL High 0 - 99 [facility] Comment on above: Order Comment: PATIE NT FASTING Result Comment: . NEAR BORD AGE DESIRABLE OPTIMAL HIGH HIGH VERY HIGH 0-19 Y 0 - 109 --- 110-129 >/= 130 ---- 20-24 Y 0 - 119 --- 120-159 >/= 160 ---- >24 Y 0 - 99 100-129 130-159 160-189 >/=190 . Performed By: #### L IPID #### [facility] [address] [place] [address] Cholesterol in VLDL [Mass/Vol] 32 mg/dL Normal 0 - 40 [facility] Comment on above: Order Comment: PATIE NT FASTING Performed By: #### L IPID #### [facility] [address] [place] [address] Cholesterol.total/Lisbeth sterol in HDL [Mass ratio] 6.5 {ratio} Abnormal [facility] Comment on above: Order Comment: PATIE NT FASTING Result Comment: REF VALUES DESIRABLE < 3.4 HIGH RISK > 5.0 Performed By: #### L IPID #### [facility] [address] [place] [address] Triglyceride [Mass/Vol] 160 mg/dL High 0 - 149 [facility] Comment on above: Order Comment: PATIE NT [...] Performed By: #### L IPID #### [facility] [address] [place] [address] Laboratory - Chemistry and C hemistry - challengeon 06-07-2022 Anion gap [Moles/Vol] 13 mmol/L 10 - 20 - [facility] Work Phone: Calcium [Mass/Vol] 9.9 mg/dL 8.6 - 10.6 [facility] Work Phone: Chloride [Moles/Vol] 103 mmol/L 98 - 107 [facility] Work Phone: CO2 [Moles/Vol] 26 mmol/L 21 - 32 -[facility] Work Phone: Creatinine [Mass/Vol] 1.33 mg/dL above high threshold See Below [facility] Work Phone: Comment on above: Reference Range: 0.5 0 - 1.30 Glucose [Mass/Vol] 177 mg/dL above high threshold 74 - 99 [facility] Work Phone: Potassium [Moles/Vol] 5.3 mmol/L 3.5 - 5.3 - [facility] Work Phone: Sodium [Moles/Vol] 137 mmol/L 136 - 145 -[facility] Work Phone: Urea nitrogen [Mass/Vol] 31 mg/dL above high threshold 6 - 23 -[facility] Work Phone: Lipid Panelon 06-07-2022 Cholesterol [Mass/Vol] 196 mg/dL 0 - 199 -[facility] Work Phone: Comment on above: [...] Cholesterol in HDL [Mass/Vol] 30.1 mg/dL Abnormal [facility] Work Phone: Comment on above: . AGE VERY LOW LOW N ORMAL HIGH 0-19 Y < 35 < 40 40-45 ---- 20-24 Y ---- < 40 >45 ---- >24 Y ---- < 40 40-60 >60. Cholesterol in LDL [Mass/Vol] 134 mg/dL above high threshold 0 - 99 [facility] Work Phone: Comment on above: . NEAR BORD AGE PATRICIA RABLE OPTIMAL HIGH HIGH VERY HIGH 0-19 Y 0 - 109 --- 110-129 >/= 130 ---- 20-24 Y 0 - 119 --- 120-159 >/= 160 ---- >24 Y 0 - 99 100-129 130-159 160-189 >/=190. Cholesterol.total/Lisbeth sterol in HDL [Mass ratio] 6.5 {ratio} Abnormal [facility] Work Phone: Comment on above: REF VALUESDESIRABLE < 3.4HIGH RISK > 5.0 Triglyceride [Mass/Vol] 160 mg/dL above hi gh threshold 0 - 149 [facility] Work Phone: Comment on above: [...] Lipid Panel 32 mg/dL 0 - 40 [employer] Work Phone: No Panel Informationon 06-07 59 {mL/min/1.73m2} Abnormal >90 [facility] [employer] Work Phone: Comment on above: CALCULATIONS OF KHADAR MATED GFR ARE PERFORMED USING THE 2020 CKD-EPI STUDY REFIT EQUATION WITHOUT THE RACE VARIABLE FOR THE IDMS-TRACEABLE CREATININE METHODS.https://jasn.asnjournals.org/content/early// ASN.2992964589 Blood Pressure Cuff Sizeon 0 01-18-2022 Fall risk assessment a) No falls within the last year [employer] Work Phone: Tobacco use status CPHS b) No [facility] [facility] Work Phone: Blood Pressure Cuff Size Adult [employer] [facility] Work Phone: IO Hgb A1Con 01-18-2022 HbA1c (Bld) [Mass fraction] 7.1 % 4.2-6.5% [employer] [facility] Phone: Office Visit (Internal Medic ine)on 01-18-2022 Follow-up visit Diagnoses/Problems Assessed Type 2 diabetes mellitus (250.00) (E11.9) HTN (hypertension) (401.9) (I10) Orders HTN (hypertension) Renew: Lisinopril 10 MG Oral Tablet; Take 1 tablet daily Rx By: Jaylon Ulloa; Dispense: 0 Days ; #:90 Tablet; Refill: 3;For: HTN (hypertension); YADI = N; Verified Transmission to [facility]; Last Updated By: tripJane; 01/18/2022 1:36:13 PM Type 2 diabetes mellitus Renew: Basaglar KwikPen 100 UNIT/ML Subcutaneous Solution Pen-injector; INJECT 15 UNIT Daily Rx By: Jaylon Ulloa; Dispense: 90 Days ; #:1 X 5 x 3 ML Pen; Refill: 3;For: Type 2 diabetes mellitus; YADI = N; Verified Transmission to [facility]; Last Updated By: Allison Coronado; 01/18/2022 1:36:13 PM Basic Metabolic Panel; Status:Active; Requested for:[id number]; Perform:Lab Services - Lab To Draw (Blood Test); Due:18Apr2022;Ordered ; For:Type 2 diabetes mellitus; Ordered By:Jaylon Ulloa; Renew: BD Pen Needle Sadaf U/F 32G X 4 MM; uses 1 daily Rx By: Jaylon Ulloa; Dispense: 0 Days ; #:1 X 100 Unit Box; Refill: 3;For: Type 2 diabetes mellitus; YADI = N; Verified Transmission to [facility]; Last Updated By: Sherrie CoronadoKibboko, [employer] 01/18/2022 1:36:15 PM Hemoglobin A1C; Status:Active; Requested [...] to [facility]; Last Updated By: Phi CoronadoQuantivo; 01/18/2022 1:36:16 PM IO Hgb A1C; Status:Resulted - Requires Verification; Done: 18Jan2022 11:32AM Performed:In Office; Due:18Apr2022; Last Updated By:Nakia Buckley; 01/18/2022 11:32:48 AM;Ordered; For:Type 2 diabetes mellitus; Ordered By:Jaylon Ulloa; Renew: OneTouch Delica Plus [id number]; Use 3 times daily as directed Rx By: Jaylon Ulloa; Dispense: 0 Days ; #:3 X 100 Unit Box; Refill: 3;For: Type 2 diabetes mellitus; YADI = N; Verified Transmission to [facility]; Msg to Pharmacy: e11.9 on insulin; Last Updated By: Sherrie CoronadoInventure [employer]; 01/18/2022 1:36:12 PM Lipid Panel; Status:Active; Requested for:18Jan2022; Perform:Lab Services - Lab To Draw (Blood Test); Due:[id number];Ordered ; For:Type 2 diabetes mellitus; Ordered By:Jaylon Ulloa; Renew: OneTouch Ultra In Vitro Strip; USE TO TEST BLOOD GLUCOSE LEVELS 3 TIMES A DAY Rx By: Jaylon Ulloa; Dispense: 0 Days ; #:3 X 100 Strip Box; Refill: 3;For: Type 2 diabetes mellitus; YADI = N; Verified Transmission to [facility]; Msg to Pharmacy: e11.9 on insulin; Last Updated By: Allison Coronado; 01/18/2022 1:36:12 PM Formulary Override Reason: Drug has been unsuccessful in the past Renew: Repaglinide 2 MG Oral Tablet; TAKE 1 TABLET BY MOUTH THREE TIMES DAILY Rx By: Jaylon Ulloa; Dispense: 90 Days ; #:270 Tablet; Refill: 3;For: Type 2 diabetes mellitus; YADI = N; Verified Transmission to [facility]; Last Updated By: Phi CoronadoQuantivo; 01/18/2022 1:36:10 PM Patient Discussion/Summary same meds follow 5 monthds see saji gonzalez 2021 Provider Impressions bp/ dm clin fine high cor art calcium score ....to see cards. Chief Complaint dm / bp follow up History of Present Illnesscards appt. 2021 dr majano ([facility]) r. arm issue resolved hgm fbs [...] aPTT Coag (PPP) [Time] 33.3 s 25.1-36.5 [facility] Albumin [Mass/volume] in Ser um or PlasmaOrdered By: Darien Florentino on 12-07-2021 Albumin [Mass/Vol] 4.4 g/dL 3.2-5.5 [facility] Basophils Auto (Bld) [#/Vol] Ordered By: Darien Florentino on 12-07-2021 Basophils (Bld) [#/Vol] 0.1 10*3/uL 0.0-0.2 [facility] Basophils/100 WBC Auto (Bld) Ordered By: Darien Florentino on 12-07-2021 Basophils/100 WBC (Bld) 0.8 % [facility] Blood hemoglobin measurement (mass/volume)Ordered By: Darien Florentino on 12-07-2021 Hemoglobin (Bld) [Mass/Vol] 13.5 g/dL 13.0-17.0 [facility] Blood leukocytes automated c ount (number/volume)Ordered By: Darien Florentino on 12-07-2021 WBC (Bld) [#/Vol] 6.9 10*3/uL 4.5-11.0 [facility] Creatinine and Glomerular fi ltration rate.predicted panel (S/P/Bld)Ordered By: Darien Florentino on 12-07-2021 Creatinine [Mass/Vol] 1.27 mg/dL 0.64-1.27 [facility] Eosinophils Auto (Bld) [#/Vo l]Ordered By: Darien Florentino on 12-07-2021 Eosinophils (Bld) [#/Vol] 0.5 10*3/uL 0.0-0.45 [facility] Eosinophils/100 WBC Auto (Bl d)Ordered By: Darien Florentino on 12-07-2021 Eosinophils/100 WBC (Bld) 6.6 % [facility] Erythrocyte distribution wid th Auto (RBC) [Ratio]Ordered By: Darien Florentino on 12-07-2021 Erythrocyte distribution width (RBC) [Ratio] 13.1 % 12.0-14.8 [facility] Estimated glomerular filtrat ion rate (GFR) non- AmericanOrdered By: Darien Florentino on 12-07-2021 GFR/1.73 sq M.predicted among non-blacks MDRD (S/P/Bld) [Vol rate/Area] 57 mL/Min [facility] Globulin Calc (S) [Mass/Vol] Ordered By: Darien Florentino on 12-07-2021 Globulin (S) [Mass/Vol] 3.1 g/dL [facility] Hematocrit Auto (Bld) [Volum e fraction]Ordered By: Darien Florentino on 12-07-2021 Hematocrit (Bld) [Volume fraction] 40.2 % 38.8-50.0 [facility] Laboratory - CoagulationOrde red By: Darien Florentino on 12-07-2021 PT Coag (PPP) [Time] 12.5 s 9.0-12.9 [facility] Laboratory - Hematology and Cell countsOrdered By: Darien Florentino on 12-07-2021 Nucleated RBC/100 WBC (Bld) [Ratio] 0.1 % 0-0.5 [facility] Lymphocytes Auto (Bld) [#/Vo l]Ordered By: Darien Florentino on 12-07-2021 Lymphocytes (Bld) [#/Vol] 2.6 10*3/uL 1.00-4.8 [facility] Lymphocytes/100 WBC Auto (Bl d)Ordered By: Darien Florentino on 12-07-2021 Lymphocytes/100 WBC (Bld) 36.8 % [facility] MCH Auto (RBC) [Entitic mass ]Ordered By: Darien Florentino on 12-07-2021 MCH (RBC) [Entitic mass] 30.2 pg 27.5-35.2 [facility] MCHC Auto (RBC) [Mass/Vol]Or dered By: Darien Florentino on 12-07-2021 MCHC (RBC) [Mass/Vol] 33.6 g/dL 32.5-35.6 [facility] MCV Auto (RBC) [Entitic vol] Ordered By: Darien Florentino on 12-07-2021 MCV (RBC) [Entitic vol] 89.9 fL 83.5-101 [facility] Monocytes Auto (Bld) [#/Vol] Ordered By: Darien Florentino on 12-07-2021 Monocytes (Bld) [#/Vol] 0.5 10*3/uL 0.0-0.8 [facility] Monocytes/100 WBC Auto (Bld) Ordered By: Darien Florentino on 12-07-2021 Monocytes/100 WBC (Bld) 6.8 % [facility] Neutrophils Auto (Bld) [#/Vo l]Ordered By: Darien Florentino on 12-07-2021 Neutrophils (Bld) [#/Vol] 3.4 10*3/uL 1.8-7.7 [facility] Neutrophils/100 WBC Auto (Bl d)Ordered By: Darien Florentino on 12-07-2021 Neutrophils/100 WBC (Bld) 49.0 % [facility] No Panel InformationOrdered By: Darien Florentino on 12-07-2021 Estimated GFR () > 60 mL/Min [facility] Comment on above: GFR estimated refere nce range: According to KDOQI guidelines, <60 ml/min/1.73m2 is sufficient to diagnose a patient with chronic kidney disease. Pharmacy Creatinine Clearance (Chem 65.08 [facility] Platelet mean volume Auto (B ld) [Entitic vol]Ordered By: Darien Florentino on 12-07-2021 Platelet mean volume (Bld) [Entitic vol] 9.0 fL 6.6-10.1 [facility] Platelet poor plasma interna tional normalized ratio (INR) by coagulation assay (relatOrdered By: Darien Florentino on 12-07-2021 INR Coag (PPP) [Relative time] 1.1 {INR} [facility] Comment on above: INR Therapeutic Rang e [...] 12-07-2021 Platelets (Bld) [#/Vol] 189 10*3/uL 150-450 [facility] Protein [Mass/volume] in Ser um or PlasmaOrdered By: Darien Florentino on 12-07-2021 Protein [Mass/Vol] 7.5 g/dL 6.1-7.9 [facility] RBC Auto (Bld) [#/Vol]Ordere d By: Darien Florentino on 12-07-2021 RBC (Bld) [#/Vol] 4.48 10*6/uL 3.90-5.60 [facility] Serum or plasma alanine crawley otransferase measurement without P-5'-P (enzymatic activiOrdered By: Darien Florentino on 12-07-2021 ALT No additional P-5'-P [Catalytic activity/Vol] 74 U/L 10-60 [facility] Serum or plasma albumin/glob ulin mass ratioOrdered By: Darien Florentino on 12-07-2021 Albumin/Globulin [Mass ratio] 1.4 {ratio} [facility] Serum or plasma alkaline laurita sphatase measurement (enzymatic activity/volume)Ordered By: Darien Florentino on 12-07-2021 ALP [Catalytic activity/Vol] 50 U/L 32-92 [facility] Serum or plasma aspartate am inotransferase measurement (enzymatic activity/volume)Ordered By: Darien Florentino on 12-07-2021 AST [Catalytic activity/Vol] 38 U/L 10-42 [facility] Serum or plasma calcium vida urement (mass/volume)Ordered By: Darien Florentino on 12-07-2021 Calcium [Mass/Vol] 10.3 mg/dL 8.2-10.2 [facility] Serum or plasma chloride jennifer surement (moles/volume)Ordered By: Darien Florentino on 12-07-2021 Chloride [Moles/Vol] 101 mmol/L 95-114 [facility] Serum or plasma glucose vida urement (mass/volume)Ordered By: Darien Florentino on 12-07-2021 Glucose [Mass/Vol] 178 mg/dL 70-100 [facility] Comment on above: ADA recommended refe rence range Random Glucose Reference Range is dependent on time and content of last meal. Glucose of more than 200 mg/dL in a nonstressed, ambulatory subject supports the diagnosis of Diabetes Mellitus. Serum or plasma potassium me asurement (moles/volume)Ordered By: Darien Florentino on 12-07-2021 Potassium [Moles/Vol] 4.6 mmol/L 3.5-5.1 [facility] Serum or plasma sodium measu rement (moles/volume)Ordered By: Darien Florentino on 12-07-2021 Sodium [Moles/Vol] 136 mmol/L 136-146 [facility] Serum or plasma total biliru bin measurement (mass/volume)Ordered By: Darien Florentino on 12-07-2021 Bilirubin [Mass/Vol] 0.5 mg/dL 0.3-1.2 [facility] Serum or plasma total carbon dioxide measurement (moles/volume)Ordered By: Darien Florentino on 12-07-2021 CO2 [Moles/Vol] 25.7 mmol/L 22.0-30.[address] [facility] Serum or plasma urea nitroge n measurement (mass/volume)Ordered By: Darien Florentino on 12-07-2021 Urea nitrogen [Mass/Vol] 22 mg/dL 03-22 [facility] Troponin I.cardiac [Mass/vol ume] in Serum or Plasma by High sensitivity methodOrdered By: Darien Florentino on 12-07-2021 Troponin I.cardiac High sensitivity method [Mass/Vol] 5 pg/mL 0- [facility] CT CARDIAC SCORINGon 022 CT CARDIAC SCORING Patient Name: GRETEL BAINS STUDY: CT CARDIAC SCORING; 10/22/2021 12:08 pm INDICATION: none E78.00: Hypercholesteremia. COMPARISON: None. ACCESSION NUMBER(S): [id number] ORDERING CLINICIAN: JAYLON ULLOA TECHNIQUE: Using prospective [...] coronary heart disease events. According to the [place] [employer] Foundation Clinical Expert Consensus [...] Electronically signed by: YASMANI RYDER MD Normal [facility] CT Cardiac Scoringon 022 CT Cardiac Scoring Normal [facility] Work Phone: Office Visit (Internal Medic ine)on 07-20-2021 Follow-up visit Diagnoses/Problems Assessed Hypercholesteremia (272.0) (E78.00) Type 2 diabetes mellitus (250.00) (E11.9) Orders HTN (hypertension) Continue: Lisinopril 10 MG Oral Tablet; Take 1 tablet daily Rx By: Jaylon Ulloa; Dispense: 0 Days ; #:90 Tablet; Refill: 3;For: HTN (hypertension); YADI = N; Verified Transmission to [facility]; Last Updated By: Nakia Buckley; 07/20/2021 8:55:[address] Cardiac Scoring; Status:Hold For - Scheduling; Requested for:20Jul2021; Perform:[facility]; Due:18Oct2021;Ordered ; [...] mellitus; YADI = N; Verified Transmission to [facility]; Last Updated By: Nakia Buckley; 07/20/2021 8:55:03 AM Continue: metFORMIN HCl ER 500 MG Oral Tablet Extended Release 24 Hour; TAKE 1 TABLET 3 times daily Rx By: Jaylon Ulloa; Dispense: 90 Days ; #:270 Tablet; Refill: 3;For: Type 2 diabetes mellitus; YADI = N; Verified Transmission to [facility] [id number]; Last Updated By: Nakia Buckley; 07/20/2021 8:55:03 AM Continue: OneTouch Delica Plus [id number]; Use 3 times daily as directed Rx [...] mellitus; YADI = N; Verified Transmission to [facility] [id number]; Last Updated By: Nakia Buckley; 07/20/2021 8:55:03 [...] TABLET 3 times daily OneTouch Delica Plus [id number] 3 times daily as directed OneTouch Ultra In Vitro StripUSE TO TEST BLOOD GLUCOSE LEVELS 3 TIMES A DAY (more content not included)... Normal [facility] BASIC METABOLIC PANELon 12-2 Anion gap [Moles/Vol] 14 mmol/L Normal 10 - 20 [facility] Comment on above: Performed By: #### B MP #### [facility] [address] [place] [address] Calcium [Mass/Vol] 9.9 mg/dL Normal 8.6 - 10.6 [facility] Comment on above: Performed By: #### B MP #### [facility] [address] [place] [address] Chloride [Moles/Vol] 101 mmol/L Normal 98 - 107 [facility] [facility] Comment on above: Performed By: #### B MP #### [facility] [id number] [place] [address] Creatinine [Mass/Vol] 1.25 mg/dL Normal 0.50 - 1.30 [facility] Comment on above: Performed By: #### B MP #### [facility] [id number] [place] [address] GFR- AM. 70 mL/min/1.73m2 Normal >60 [facility] Comment on above: Result Comment: CALC ULATIONS OF ESTIMATED GFR ARE PERFORMED USING THE MDRD STUDY EQUATION FOR THE IDMS-TRACEABLE CREATININE METHODS. CLIN CHEM 2007;53:766-72 Performed By: #### B MP #### [facility] [address] [place] [address] GFR-NON AM. 58 mL/min/1.73m2 Abnormal >60 [facility] Comment on above: Performed By: #### B MP #### [facility] [address] [place] [address] Glucose [Mass/Vol] 186 mg/dL High 74 - 99 [facility] Comment on above: Performed By: #### B MP #### [facility] [address] [place] [address] HCO3 (Bld) [Moles/Vol] 28 mmol/L Normal 21 - 32 [facility] Comment on above: Performed By: #### B MP #### [facility] [address] [place] [address] Potassium [Moles/Vol] 4.8 mmol/L Normal 3.5 - 5.3 [facility] Comment on above: Performed By: #### B MP #### [facility] [id number] [place] [address] Sodium [Moles/Vol] 138 mmol/L Normal 136 - 145 [facility] Comment on above: Performed By: #### B MP #### [facility] [address] [place] [address] Urea nitrogen [Mass/Vol] 21 mg/dL Normal 6 - 23 [facility] Comment on above: Performed By: #### B MP #### [facility] [address] [place] [address] HEMOGLOBIN A1Con 06-25-2021 Glucose [Mass/Vol] 163 mg/dL Normal [facility] Comment on above: Performed By: #### H BA1E #### [facility] [address] [place] [address] HbA1c (Bld) [Mass fraction] 7.3 % Abnormal [facility] Comment on above: Result Comment: Diag nosis of Diabetes-Adults Non-Diabetic: < or = 5.6% Increased risk for developing diabetes: 5.7-6.4% Diagnostic of diabetes: > or = 6.5% . Monitoring of Diabetes Age (y) Therapeutic Goal (%) Adults: >18 <7.0 Pediatrics: 13-18 <7.5 7-12 <8.0 0- 6 7.5-8.5 [place] [employer]. Diabetes Care 33(S1), Jun 2009. Performed By: #### H BA1E #### [facility] [address] [place] [address] Hemoglobin A1Con 06-25-2021 Glucose [Mass/Vol] 163 mg/dL -[facility] Work Phone: HbA1c (Bld) [Mass fraction] 7.3 % Abnormal [facility] Work Phone: Comment on above: Diagnosis of Diabete s-Adults Non-Diabetic: < or = 5.6% Increased risk for developing diabetes: 5.7-6.4% Diagnostic of diabetes: > or = 6.5%. Monitoring of Diabetes Age (y) Therapeutic Goal (%) Adults: >18 <7.0 Pediatrics: 13-18 <7.5 7-12 <8.0 0- 6 7.5-8.5 [place] [employer]. Diabetes Care 33(S1), Jun 2009. LIPID PANEL (CORONARY RISK 2 )on 06-25-2021 Cholesterol [Mass/Vol] 218 mg/dL High 0 - 199 [facility] Comment on above: Result Comment: . AGE [...] Performed By: #### L IPID #### [facility] [address] [place] [address] Cholesterol in HDL [Mass/Vol] 28.6 mg/dL Abnormal [facility] Comment on above: Result Comment: . AGE VERY LOW LOW NORMAL HIGH 0-19 Y < 35 < 40 40-45 ---- 20-24 Y ---- < 40 >45 ---- >24 Y ---- < 40 40-60 >60 . Performed By: #### L IPID #### [facility] [address] [place] [address] Cholesterol in LDL [Mass/Vol] 140 mg/dL High 0 - 99 [facility] Comment on above: Result Comment: . NEAR BORD AGE DESIRABLE OPTIMAL HIGH HIGH VERY HIGH 0-19 Y 0 - 109 --- 110-129 >/= 130 ---- 20-24 Y 0 - 119 --- 120-159 >/= 160 ---- >24 Y 0 - 99 100-129 130-159 160-189 >/=190 . Performed By: #### L IPID #### [facility] [address] [place] [address] Cholesterol in VLDL [Mass/Vol] 49 mg/dL High 0 - 40 [facility] Comment on above: Performed By: #### L IPID #### [facility] [address] [place] [address] Cholesterol.total/Lisbeth sterol in HDL [Mass ratio] 7.6 {ratio} Abnormal [facility] Comment on above: Result Comment: REF VALUES DESIRABLE < 3.4 HIGH RISK > 5.0 Performed By: #### L IPID #### [facility] [address] [place] [address] NON-HDL CHOLESTEROL 189 mg/dL Normal [facility] Comment on above: Result Comment: AGE DESIRABLE BORDERLINE HIGH HIGH VERY HIGH 0-19 Y 0 - 119 120 - 144 >/= 145 >/= 160 20-24 Y 0 - 149 150 - 189 >/= 190 ---- >24 Y 30 MG/DL ABOVE LDL CHOLESTEROL GOAL . Performed By: #### L IPID #### [facility] [address] [place] [address] Triglyceride [Mass/Vol] 247 mg/dL High 0 - 149 [facility] Comment on above: Result Comment: . AGE [...] Performed By: #### L IPID #### [facility] [address] [place] [address] Laboratory - Chemistry and C hemistry - challengeon 06-25-2021 Anion gap [Moles/Vol] 14 mmol/L 10 - - [facility] Work Phone: Calcium [Mass/Vol] 9.9 mg/dL 8.6 - 10.6 -[facility] Work Phone: Chloride [Moles/Vol] 101 mmol/L 98 - 107 -[facility] Work Phone: CO2 [Moles/Vol] 28 mmol/L 21 - 32 [facility] Work Phone: Creatinine [Mass/Vol] 1.25 mg/dL See Below - [facility] Work Phone: Comment on above: Reference Range: 0.5 0 - 1.30 Glucose [Mass/Vol] 186 mg/dL above high threshold 74 - 99 [facility] Work Phone: Potassium [Moles/Vol] 4.8 mmol/L 3.5 - 5.3 [facility] Work Phone: Sodium [Moles/Vol] 138 mmol/L 136 - 145 -[facility] Work Phone: Urea nitrogen [Mass/Vol] 21 mg/dL 6 - 23 -[facility] Work Phone: Lipid Panelon 06-25-2021 Cholesterol [Mass/Vol] 218 mg/dL above hig h threshold 0 - 199 [facility] Work Phone: Comment on above: . [...] Cholesterol in HDL [Mass/Vol] 28.6 mg/dL Abnormal [employer] [facility] Work Phone: Comment on above: . AGE VERY LOW LOW N ORMAL HIGH 0-19 Y < 35 < 40 40-45 ---- 20-24 Y ---- < 40 >45 ---- >24 Y ---- < 40 40-60 >60. Cholesterol in LDL [Mass/Vol] 140 mg/dL above high threshold 0 - 99 [employer] Work Phone: Comment on above: . NEAR BORD AGE PATRICIA RABLE OPTIMAL HIGH HIGH VERY HIGH 0-19 Y 0 - 109 --- 110-129 >/= 130 ---- 20-24 Y 0 - 119 --- 120-159 >/= 160 ---- >24 Y 0 - 99 100-129 130-159 160-189 >/=190. Cholesterol non HDL [Mass/Vol] 189 mg/dL [employer] [facility] Work Phone: Comment on above: AGE DESIRABLE BORDER LINE HIGH HIGH VERY HIGH 0-19 Y 0 - 119 120 - 144 >/= 145 >/= 160 20-24 Y 0 - 149 150 - 189 >/= 190 ---- >24 Y 30 MG/DL ABOVE LDL CHOLESTEROL GOAL. Cholesterol.total/Lisbeth sterol in HDL [Mass ratio] 7.6 {ratio} Abnormal [employer] [facility] Work Phone: Comment on above: REF VALUESDESIRABLE < 3.4HIGH RISK > 5.0 Triglyceride [Mass/Vol] 247 mg/dL above hi gh threshold 0 - 149 [employer] [facility] Work Phone: Comment on [...] mg/dL above high threshold 0 - 40 -[facility] Work Phone: No Panel Informationon 06-25 70 {mL/min/1.73m2} >60 MP-[facility] Work Phone: Comment on above: CALCULATIONS OF KHADAR MATED GFR ARE PERFORMED USING THE MDRD STUDY EQUATION FOR THE IDMS-TRACEABLE CREATININE METHODS. CLIN CHEM 2007;53:766-72 58 {mL/min/1.73m2} Abnormal >60 -[facility] Work Phone: PROSTATE SPEC.AG,SCREENon PROSTATE SPEC.AG,SCREEN 2.61 ng/mL Normal 0.00 - 4.00 [facility] Comment on above: Result Comment: The FDA requires that the method used for PSA assay be reported to the physician. Values obtained with different assay methods must not be used interchangeably. This test was performed at [facility] using the [employer] PSA method, which is a sandwich immunoassay using chemiluminescence for quantitation. The assay is approved for measurement of prostate-specific antigen (PSA) in serum and may be used in conjunction with a digital rectal examination in men 50 years and older as an aid in detection of prostate cancer. 2-Dqqpa-gqcsexnnv inhibitors (e.g. Proscar, Finasteride, Avodart, Dutasteride and Michelle) for the treatment of BPH have been shown to lower PSA levels by an average of 50% after 6 months of treatment. Performed By: #### P [facility] #### [facility] [address] [place] [address] Prostate Spec.Ag, Screenon 1 08-26-2020 Prostate specific Ag [Mass/Vol] 2.61 ng/mL See Below [facility] Work Phone: Comment on above: Reference Range: 0.0 0 - 4.00The FDA requires that the method used for PSA assay be reported to the physician. Values obtained with different assay methods must not be used interchangeably. This test was performed at [facility] using the [employer] PSA method, which is a sandwich immunoassay using chemiluminescence for quantitation. The assay is approvedfor measurement of prostate-specific antigen (PSA) in serum and may be used in conjunction with a digital rectalexamination in men 50 years and older as an aid in detection of prostate cancer. 3-Obdsn-oypwzdmvs inhibitors (e.g. Proscar, Finasteride, Avodart, Dutasteride and Michelle) for the treatment of BPH have been shown to lower PSA levels by an average of 50% after 6 months of treatment. Blood Pressure Cuff Sizeon 0 03-07-2021 Tobacco use status [facility] b) No [facility] 102 DO Work Phone: Blood Pressure Cuff Size Adult [facility] 102 DO Work Phone: Blood Pressure Cuff Sizeon 0 03-01-2021 Blood Pressure Cuff Size Adult [facility] Work Phone: IO Hgb A1Con 03-01-2021 HbA1c (Bld) [Mass fraction] 6.8 % 4.4-6.4% [facility] Work Phone: IO glucose, blood, finger st ick via hand held monitoron 03-01-2021 Glucose [Mass/Vol] 121 mg/dL [facility] Work Phone: Vital Signs Date Time Vital Sign Value Performing Clinician Facility 03-07-2025 08:39-0400 Body height 175.26 cm Светлана Mast DO Work Phone: [facility] 03-07-2025 08:39-0400 Body mass index (BMI) [Ratio] 28.7 kg/m2 Светлана Mast DO Work Phone: [facility] 03-07-2025 08:39-0400 Body temperature 96.5 [degF] Светлана Mast DO Work Phone: [facility] 03-07-2025 08:39-0400 Body weight 88.25 kg Светлана Mast DO Work Phone: [facility] 03-07-2025 08:39-0400 Diastolic blood pressure 60 mm[Hg] Светлана Mast DO Work Phone: [facility] 03-07-2025 08:39-0400 Heart rate 59 /min Светлана Mast DO Work Phone: [facility] 03-07-2025 08:39-0400 Respiratory rate 18 /min Светлана Mast DO Work Phone: [facility] 03-07-2025 08:39-0400 SaO2% (BldA) [Mass fraction] 96 % Светлана Mast DO Work Phone: [facility] 03-07-2025 08:39-0400 Systolic blood pressure 122 mm[Hg] Светлана Mast DO Work Phone: [facility] 11-08-2024 08:10-0400 Body height 175.26 cm [facility] 11-08-2024 08:10-0400 Body mass index (BMI) [Ratio] 29.2 kg/m2 [facility] 11-08-2024 08:10-0400 Body temperature 97 [degF] [facility] 11-08-2024 08:10-0400 Body weight 89.83 kg [facility] 11-08-2024 08:10-0400 Diastolic blood pressure 68 mm[Hg] [facility] 11-08-2024 08:10-0400 Heart rate 62 /min [facility] 11-08-2024 08:10-0400 Respiratory rate 18 /min [facility] 11-08-2024 08:10-0400 SaO2% (BldA) [Mass fraction] 96 % [facility] 11-08-2024 08:10-0400 Systolic blood pressure 128 mm[Hg] [facility] 07-21-2024 07:55-0500 Blood Pressure Location Devendra MINER [facility] 07-21-2024 07:55-0500 Diastolic blood pressure 84 mm[Hg] Devendra MINER [facility] 07-21-2024 07:55-0500 Heart rate 70 /min Devendra MINER [facility] 07-21-2024 07:55-0500 Respiratory rate 16 /min Devendra MINER [facility] 07-21-2024 07:55-0500 Systolic blood pressure 150 mm[Hg] Devendra MINER [facility] 07-16-2024 08:20-0500 Body height 175.26 cm [facility] 07-16-2024 08:20-0500 Body mass index (BMI) [Ratio] 29.7 kg/m2 [facility] 07-16-2024 08:20-0500 Body temperature 97 [degF] [facility] 07-16-2024 08:20-0500 Body weight 91.39 kg [facility] 07-16-2024 08:20-0500 Diastolic blood pressure 68 mm[Hg] [facility] 07-16-2024 08:20-0500 Heart rate 60 /min [facility] 07-16-2024 08:20-0500 SaO2% (BldA) [Mass fraction] 96 % [facility] 07-16-2024 08:20-0500 Systolic blood pressure 122 mm[Hg] [facility] 04-12-2024 08:27-0400 Body mass index (BMI) [Ratio] 30.1 kg/m2 MD Devendra Miner Work Phone: [facility] 04-12-2024 08:27-0400 Diastolic blood pressure 76 mm[Hg] MD Devendra Miner Work Phone: [facility] 04-12-2024 08:27-0400 Systolic blood pressure 140 mm[Hg] MD Devendra Miner Work Phone: [facility] 04-12-2024 08:13-0400 Body height 175.26 cm MD Devendra Miner Work Phone: [facility] 04-12-2024 08:13-0400 Body temperature 96 [degF] MD Devendra Miner Work Phone: [facility] 04-12-2024 08:13-0400 Body weight 92.53 kg MD Devendra Miner Work Phone: [facility] 04-12-2024 08:13-0400 Heart rate 56 /min MD Devendra Miner Work Phone: [facility] 04-12-2024 08:13-0400 Respiratory rate 18 /min MD Devendra Miner Work Phone: [facility] 04-12-2024 08:13-0400 SaO2% (BldA) [Mass fraction] 99 % MD Devendra Miner Work Phone: [facility] 02-04-2024 15:06-0400 Blood Pressure Location Devendra MINER [facility] 02-04-2024 15:06-0400 Diastolic blood pressure 80 mm[Hg] Devendra MINER [facility] 02-04-2024 15:06-0400 Heart rate 70 /min Devendra MINER [facility] 02-04-2024 15:06-0400 Respiratory rate 16 /min Devendra MINER [facility] 02-04-2024 15:06-0400 Systolic blood pressure 136 mm[Hg] Devendra MINER [facility] 12-22-2023 08:41-0400 Body height 175.26 cm DO Светлана Erazo Work Phone: [facility] 12-22-2023 08:41-0400 Body mass index (BMI) [Ratio] 29.5 kg/m2 DO Светлана Mast Work Phone: [facility] 12-22-2023 08:41-0400 Body temperature 96.8 [degF] DO Светлана Mast Work Phone: [facility] 12-22-2023 08:41-0400 Body weight 90.88 kg DO Светлана Mast Work Phone: [facility] 12-22-2023 08:41-0400 Diastolic blood pressure 70 mm[Hg] DO Светлана Mast Work Phone: [facility] 12-22-2023 08:41-0400 Heart rate 56 /min DO Светлана Mast Work Phone: [facility] 12-22-2023 08:41-0400 SaO2% (BldA) [Mass fraction] 97 % DO Светлана Mast Work Phone: [facility] 12-22-2023 08:41-0400 Systolic blood pressure 132 mm[Hg] DO Светлана Mast Work Phone: [facility] 10-16-2023 13:00-0400 Diastolic blood pressure 66 mm[Hg] DO Светлана Mast Work Phone: [facility] 10-16-2023 13:00-0400 Heart rate 54 /min DO Светлана Mast Work Phone: [facility] 10-16-2023 13:00-0400 Respiratory rate 16 /min DO Светлана Mast Work Phone: [facility] 10-16-2023 13:00-0400 SaO2% (BldA) [Mass fraction] 98 % DO Светлана Mast Work Phone: [facility] 10-16-2023 13:00-0400 Systolic blood pressure 136 mm[Hg] DO Светлана Mast Work Phone: [facility] 10-16-2023 12:08-0400 Body temperature 98 [degF] DO Светлана Mast Work Phone: [facility] 10-16-2023 11:43-0400 Inhaled oxygen flow rate 8 L/min DO Светлана Mast Work Phone: [facility] 10-16-2023 09:17-0400 Body height 175.26 cm DO Светлана Mast Work Phone: [facility] 10-16-2023 09:17-0400 Body mass index (BMI) [Ratio] 28.3 kg/m2 DO Светлана Mast Work Phone: [facility] 10-16-2023 09:17-0400 Body weight 87 kg DO Светлана Mast Work Phone: [facility] 09-18-2023 13:44-0400 Body height 177.8 cm [facility] 09-18-2023 13:44-0400 Body mass index (BMI) [Ratio] 29 kg/m2 [facility] 09-18-2023 13:44-0400 Body temperature 98.4 [degF] [facility] 09-18-2023 13:44-0400 Body weight 91.82 kg [facility] 09-18-2023 13:44-0400 Diastolic blood pressure 68 mm[Hg] [facility] 09-18-2023 13:44-0400 Heart rate 68 /min [facility] 09-18-2023 13:44-0400 SaO2% (BldA) [Mass fraction] 98 % [facility] 09-18-2023 13:44-0400 Systolic blood pressure 136 mm[Hg] [facility] 07-14-2023 08:45-0500 Body height 177.8 cm Светлана Mast Other [facility] 07-14-2023 08:45-0500 Body mass index (BMI) [Ratio] 29.97 kg/m2 Светлана Mast Other [facility] [employer] Other 07-14-2023 08:45-0500 Body weight 94.76 kg Светлана Mast Other [facility] [employer] Other 07-14-2023 08:45-0500 Body weight 94.75 kg [facility] 07-14-2023 08:45-0500 Diastolic blood pressure 72 mm[Hg] Светлана Mast Other [facility] 07-14-2023 08:45-0500 Respiratory rate 18 /min Светлана Mast Other [facility] [employer] Other 07-14-2023 08:45-0500 SaO2% (BldA) [Mass fraction] 96 % Светлана Mast Other [facility] [employer] Other 07-14-2023 08:45-0500 Systolic blood pressure 128 mm[Hg] Светлана Mast Other [facility] 06-04-2023 13:29-0500 Blood Pressure Location [facility] 06-04-2023 13:29-0500 Diastolic blood pressure 83 mm[Hg] Devendra MINER [facility] 06-04-2023 13:29-0500 Heart rate 87 /min Devendra MINER [facility] 06-04-2023 13:29-0500 Respiratory rate 16 /min Devendra MINER [facility] 06-04-2023 13:29-0500 Systolic blood pressure 135 mm[Hg] Devendra MINER [facility] 06-02-2023 08:45-0500 Body height 177.8 cm Светлана Mast Other [employer] Other 06-02-2023 08:45-0500 Body mass index (BMI) [Ratio] 29.02 kg/m2 Светлана Mast Other [employer] Other 06-02-2023 08:45-0500 Body temperature 96.5 [degF] Светлана Mast Other [employer] Other 06-02-2023 08:45-0500 Body weight 91.76 kg Светлана Mast Other [employer] Other 06-02-2023 08:45-0500 Diastolic blood pressure 84 mm[Hg] Светлана Mast Other [employer] Other 06-02-2023 08:45-0500 SaO2% (BldA) [Mass fraction] 98 % Светлана Mast Other [employer] Other 06-02-2023 08:45-0500 Systolic blood pressure 124 mm[Hg] Светлана Mast Other [employer] Other 02-27-2023 09:00-0400 Body height 177.8 cm Светлана Mast Other [employer] Other 02-27-2023 09:00-0400 Body mass index (BMI) [Ratio] 29.02 kg/m2 Светлана Mast Other [employer] Other 02-27-2023 09:00-0400 Body temperature 96.9 [degF] Светлана Mast Other [employer] Other 02-27-2023 09:00-0400 Body weight 91.76 kg Светлана Mast Other [employer] Other 02-27-2023 09:00-0400 Diastolic blood pressure 72 mm[Hg] Светлана Mast Other [employer] Other 02-27-2023 09:00-0400 SaO2% (BldA) [Mass fraction] 97 % Светлана Mast Other [employer] Other 02-27-2023 09:00-0400 Systolic blood pressure 130 mm[Hg] Светлана Mast Other [employer] Other 01-27-2023 09:15-0400 Body height 177.8 cm Светлана Mast Other [employer] Other 01-27-2023 09:15-0400 Body mass index (BMI) [Ratio] 28.89 kg/m2 Светлана Mast Other [employer] Other 01-27-2023 09:15-0400 Body temperature 96.4 [degF] Светлана Mast Other [employer] Other 01-27-2023 09:15-0400 Body weight 91.36 kg Светлана Mast Other [employer] Other 01-27-2023 09:15-0400 Diastolic blood pressure 80 mm[Hg] Светлана Mast Other [employer] Other 01-27-2023 09:15-0400 SaO2% (BldA) [Mass fraction] 98 % Светлана Mast Other [employer] Other 01-27-2023 09:15-0400 Systolic blood pressure 134 mm[Hg] Светлана Erazo Other [employer] Other 06-14-2022 09:03-0500 Body height 172.72 cm Jaylon Ulloa Work Phone: [employer] Work Phone: 06-14-2022 09:03-0500 Body mass index (BMI) [Ratio] 31.78 kg/m2 Jaylon Ulloa Work Phone: [employer] Work Phone: 06-14-2022 09:03-0500 Body surface area Derived from formula 2.08 m2 Jaylon Ulloa Work Phone: [employer] Work Phone: 06-14-2022 09:03-0500 Body temperature 97.4 [degF] Jaylon Ulloa Work Phone: [employer] Work Phone: 06-14-2022 09:03-0500 Body weight 94.8 kg Jaylon Ulloa Work Phone: [employer] Work Phone: 06-14-2022 09:03-0500 Diastolic blood pressure 62 mm[Hg] Jaylon Ulloa Work Phone: [employer] Work Phone: 06-14-2022 09:03-0500 Heart rate 73 /min Jaylon Ulloa Work Phone: [employer] Work Phone: 06-14-2022 09:03-0500 SaO2% (BldA) [Mass fraction] 97 % Jaylon Ulloa Work Phone: [employer] Work Phone: 06-14-2022 09:03-0500 Systolic blood pressure 120 mm[Hg] Jaylon Ulloa Work Phone: [employer] Work Phone: 01-18-2022 10:54-0400 Body height 172.72 cm Jaylon Ulloa Work Phone: [employer] Work Phone: 01-18-2022 10:54-0400 Body mass index (BMI) [Ratio] 30.87 kg/m2 Jaylon Ulloa Work Phone: [employer] Work Phone: 01-18-2022 10:54-0400 Body surface area Derived from formula 2.06 m2 Jaylon Ulloa Work Phone: [facility] Work Phone: 01-18-2022 10:54-0400 Body temperature 97.1 [degF] Jaylon Ulloa Work Phone: [facility] Work Phone: 01-18-2022 10:54-0400 Body weight 92.08 kg Jaylon Ulloa Work Phone: [facility] Work Phone: 01-18-2022 10:54-0400 Diastolic blood pressure 78 mm[Hg] Jaylon Ulloa Work Phone: [facility] Work Phone: 01-18-2022 10:54-0400 Heart rate 78 /min Jaylon Ulloa Work Phone: [facility] Work Phone: 01-18-2022 10:54-0400 SaO2% (BldA) [Mass fraction] 98 % Jaylon Ulloa Work Phone: [facility] Work Phone: 01-18-2022 10:54-0400 Systolic blood pressure 120 mm[Hg] Jaylon Krishna Barbarashana Work Phone: [facility] Work Phone: 12-07-2021 09:37-0400 Body height 175.26 cm [facility] 12-07-2021 09:37-0400 Body mass index (BMI) [Ratio] 30.9 kg/m2 [facility] 12-07-2021 09:37-0400 Body temperature 98.2 [degF] [facility] 12-07-2021 09:37-0400 Body weight 95 kg [facility] 12-07-2021 09:37-0400 Diastolic blood pressure 90 mm[Hg] [facility] 12-07-2021 09:37-0400 Heart rate 57 /min [facility] 12-07-2021 09:37-0400 Respiratory rate 18 /min [facility] 12-07-2021 09:37-0400 SaO2% (BldA) [Mass fraction] 98 % [facility] 12-07-2021 09:37-0400 Systolic blood pressure 193 mm[Hg] [facility] 03-07-2021 08:35-0400 Body height 172.72 cm Jaylon Ulloa Work Phone: [facility] 102 DO Work Phone: 03-07-2021 08:35-0400 Body mass index (BMI) [Ratio] 31.47 kg/m2 Jaylon Krishna Barbarashana Work Phone: [facility] 102 DO Work Phone: 03-07-2021 08:35-0400 Body surface area Derived from formula 2.07 m2 Jaylon Tomi Del Castilloshana Work Phone: [facility] 102 DO Work Phone: 03-07-2021 08:35-0400 Body temperature 96.2 [degF] Jaylon Krishna Barbarakl Work Phone: [facility] 102 DO Work Phone: 03-07-2021 08:35-0400 Body weight 93.9 kg Jaylon Tomi Del Castillokl Work Phone: [place] [address] DO Work Phone: 03-07-2021 08:35-0400 Diastolic blood pressure 60 mm[Hg] Jaylon Tomi Del Castillokl Work Phone: [place] [address] DO Work Phone: 03-07-2021 08:35-0400 Heart rate 63 /min Jaylon Krishna Barbarakl Work Phone: [place] [address] DO Work Phone: 03-07-2021 08:35-0400 Respiratory rate 16 /min Jaylon Krishna Barbarashana Work Phone: [place] [address] DO Work Phone: 03-07-2021 08:35-0400 SaO2% (BldA) [Mass fraction] 98 % Jaylon E Barbarashana Work Phone: [facility] 102 DO Work Phone: 03-07-2021 08:35-0400 Systolic blood pressure 140 mm[Hg] Jaylon Del Castillokl Work Phone: [facility] 102 DO Work Phone: 03-01-2021 09:57-0400 Body height 172.72 cm Jaylon Del Castillokl Work Phone: [employer] [facility] Work Phone: 03-01-2021 09:57-0400 Body mass index (BMI) [Ratio] 30.87 kg/m2 Jaylon Tomi Del Castilloshana Work Phone: [employer] [facility] Work Phone: 03-01-2021 09:57-0400 Body surface area Derived from formula 2.06 m2 Jaylon Ulloa Work Phone: [employer] [facility] Work Phone: 03-01-2021 09:57-0400 Body temperature 97.1 [degF] Jaylon Ulloa Work Phone: [employer] [facility] Work Phone: 03-01-2021 09:57-0400 Body weight 92.08 kg Jaylon Ulloa Work Phone: [employer] [facility] Work Phone: 03-01-2021 09:57-0400 Diastolic blood pressure 80 mm[Hg] Jaylon Ulloa Work Phone: [employer] [facility] Work Phone: 03-01-2021 09:57-0400 Heart rate 73 /min Jaylon Ulloa Work Phone: [employer] [facility] Work Phone: 03-01-2021 09:57-0400 SaO2% (BldA) [Mass fraction] 99 % Jaylon Ulloa Work Phone: [employer] [facility] Work Phone: 03-01-2021 09:57-0400 Systolic blood pressure 150 mm[Hg] Jaylon Ulloa Work Phone: [employer] [facility] Work Phone: 07-15-2019 11:00-0500 BMI (Body Mass Index) 32.16 kg/m2 Jaylon Ulloa [employer] Work Phone: 07-15-2019 11:00-0500 Body Temperature 96.7 [degF] Jaylon Ulloa [facility] [employer] Work Phone: Comment on above: Method: Temporal 07-15-2019 11:00-0500 Body weight 95.94 kg Jaylon Ulloa [facility] Work Phone: 07-15-2019 11:00-0500 BP Diastolic 90 mm[Hg] Jaylon Ulloa [facility] [employer] Work Phone: Comment on above: Location: LUE; Position: Sitting 07-15-2019 11:00-0500 BP Systolic 150 mm[Hg] Jaylon Ulloa [facility] [employer] Work Phone: Comment on above: Location: LUE; Position: Sitting 07-15-2019 11:00-0500 BSA (Body Surface Area) 2.09 m2 Jaylon Ulloa [facility] [employer] Work Phone: 07-15-2019 11:00-0500 Height 172.72 cm Jaylon Ulloa [facility] Work Phone: 07-15-2019 11:00-0500 Pulse (Heart Rate) 87 /min Jaylon Ulloa [facility] Work Phone: 07-15-2019 11:00-0500 Pulse Oximetry 98 % Jaylon Ulloa [facility] [employer] Work Phone: Comment on above: Source: RA Encounters Encounter Date Encounter Type Care Provider Facility Start: 03-30-2025 ambulatory Devendra Hassan ty:ROBBI Ron Start: 03-17-2025 ambulatory Devendra Hassan ty:[id number] Start: 03-09-2025 End: 03-09-2025 Patient encounter procedure Светлана E Mast DO -Lab [facility] Start: 03-09-2025 End: 03-09-2025 ambulatory Светлана Mast DO Work Phone: [facility] Work Phone: Start: 03-07-2025 End: 03-07-2025 ambulatory Светлана Mast DO Work Phone: [facility] Work Phone: Start: 03-07-2025 End: 03-07-2025 Patient encounter procedure Светлана E Mast DO -[facility] Work Phone: Start: 02-23-2025 End: 02-23-2025 ambulatory Devendra MINER Facility:[facility] Start: 02-23-2025 End: 02-23-2025 Patient encounter procedure Devendra MINER [facility] [place] Start: 02-17-2025 End: 02-17-2025 ambulatory Heide Real Facility[facility] Start: 02-17-2025 End: 02-17-2025 Patient encounter procedure Devendra MINER [facility] [place] Start: 11-08-2024 End: 11-08-2024 ambulatory [facility] Work Phone: Start: 11-08-2024 End: 11-08-2024 Patient encounter procedure [facility] [place] Work Phone: Start: 07-21-2024 End: 07-21-2024 ambulatory Devendra MINER Facility:[facility] Start: 07-21-2024 End: 07-21-2024 Patient encounter procedure Devendra MINER [facility] [place] Start: 07-16-2024 End: 07-16-2024 ambulatory [facility] Work Phone: Start: 07-16-2024 End: 07-16-2024 Patient encounter procedure [facility] [place] Work Phone: Start: 07-14-2024 End: 07-14-2024 Lab Drop off Devendra MINER [facility] Start: 07-14-2024 End: 07-14-2024 ambulatory Devendra MINER Facility:[facility] [place] Start: 07-14-2024 End: 07-14-2024 Patient encounter procedure Devendra MINER [facility] Start: 04-14-2024 End: 04-14-2024 Patient encounter procedure DO Светлана Mast Work Phone: [facility] Start: 04-14-2024 End: 04-14-2024 ambulatory DO Светлана Mast Work Phone: [facility] Work Phone: Start: 04-12-2024 End: 04-12-2024 ambulatory MD Devendra Miner Work Phone: [facility] Work Phone: Start: 04-12-2024 End: 04-12-2024 Patient encounter procedure MD Devendra Miner Work Phone: [facility] Physician [facility] [place] Work Phone: Start: 02-04-2024 End: 02-04-2024 ambulatory Devendra MINER Facility:[facility] [place] Start: 02-04-2024 End: 02-04-2024 Patient encounter procedure Devendra MINER [facility] Start: 01-26-2024 End: 01-26-2024 ambulatory DO Светлана Mast Work Phone: [facility] Work Phone: Start: 01-26-2024 End: 01-26-2024 Departed Referred DO Светлана Mast Work Phone: [facility]-LAB [facility] Start: 01-26-2024 End: 01-26-2024 ambulatory Devendra MINER Facility:[id number] Start: 12-30-2023 End: 12-30-2023 ambulatory Devendra MINER Facility[facility] Start: 12-30-2023 End: 12-30-2023 Patient encounter procedure Devendra MINER [facility] Start: 12-25-2023 End: 12-25-2023 ambulatory DO Светлана Mast Work Phone: [facility] Work Phone: Start: 12-25-2023 End: 12-25-2023 Patient encounter procedure DO Светлана Mast Work Phone: [facility]-MRI Main [place] Work Phone: Start: 12-22-2023 End: 12-22-2023 ambulatory DO Светлана Mast Work Phone: [facility] Work Phone: Start: 12-22-2023 End: 12-22-2023 Patient encounter procedure DO Светлана Mast Work Phone: [facility] Family [facility] [place] Work Phone: Start: 11-05-2023 End: 11-05-2023 ambulatory Devendra MINER Facility[facility] Start: 11-05-2023 End: 11-05-2023 Lab Drop off Devendra MINER [facility] Start: 11-05-2023 End: 11-05-2023 ambulatory Devendra R MINER Facility:[facility] [place] Start: 11-05-2023 End: 11-05-2023 Patient encounter procedure Devendra MINER [facility] [place] Start: 10-20-2023 ambulatory Devendra Romero MINER Facili ty:[facility] [place] Start: 10-17-2023 End: 10-17-2023 ambulatory Devendranilson MINER Facility:[facility] [place] Start: 10-17-2023 End: 10-17-2023 Patient encounter procedure Devendra Romero MINER [facility] [place] Start: 10-16-2023 End: 10-16-2023 Admission to same day surgery center DO Светлана Mast Work Phone: [facility]-Surgery Center [facility] [place] Start: 10-16-2023 End: 10-16-2023 ambulatory DO Светлана Mast Work Phone: [facility] Work Phone: Start: 10-16-2023 End: 10-16-2023 ambulatory Devendra MINER Facility:[id number] Start: 10-16-2023 End: 10-16-2023 Off-Site Devendra MNIER [facility] [place] Start: 10-01-2023 ambulatory Devendra R MINER Facili ty:[facility] Start: 09-18-2023 End: 09-18-2023 ambulatory [facility] Work Phone: Start: 09-18-2023 End: 09-18-2023 Patient encounter procedure [facility] [place] Work Phone: Start: 09-15-2023 ambulatory Devendra MINER Facili ty:[facility] [place] Start: 09-11-2023 ambulatory Devendra Picketti ty:[id number] Start: 07-14-2023 End: 07-14-2023 ambulatory Светлана Mast Other [employer] Other Start: 07-14-2023 Office outpatient vi sit 25 minutes Светлана Mast [facility] Start: 07-14-2023 End: 07-14-2023 Patient encounter procedure [facility] Work Phone: Start: 07-01-2023 End: 07-01-2023 Patient encounter procedure Devendra Romero MINER [facility] [place] [employer] Start: 06-04-2023 End: 06-04-2023 Patient encounter procedure Devendra MINER [facility] [place] [employer] Start: 06-02-2023 End: 06-02-2023 ambulatory Светлана Mast Other [employer] Other Start: 06-02-2023 Office outpatient vi sit 25 minutes Светлана Mast [facility] Start: 03-26-2023 End: 03-26-2023 ambulatory Светлана Mast Other [employer] Other Start: 03-26-2023 Telephone encounter Светлана Mast [facility] Start: 03-24-2023 End: 03-24-2023 ambulatory Светлана Mast Other [employer] Other Start: 03-24-2023 Telephone encounter Светлана Mast [facility] Start: 02-27-2023 End: 02-27-2023 ambulatory Светлана Mast Other [employer] Other Start: 02-27-2023 Office outpatient vi sit 25 minutes Светлана Mast [facility] Start: 02-17-2023 End: 02-17-2023 ambulatory DO Светлана Mast Work Phone: [facility] Work Phone: Start: 02-17-2023 End: 02-17-2023 Patient encounter procedure DO Светлана Mast Work Phone: [facility]-CT [address] Work Phone: Start: 02-03-2023 End: 02-03-2023 ambulatory DO Светлана Mast Work Phone: [facility] Work Phone: Start: 02-03-2023 End: 02-03-2023 Patient encounter procedure DO Светлана Mast Work Phone: [facility] Start: 01-27-2023 End: 01-27-2023 ambulatory Светлана Mast Other [facility] [employer] Other Start: 01-27-2023 Office outpatient ne w 45 minutes Светлана Mast [facility] Start: 10-08-2022 End: 10-08-2022 ambulatory CESARIO YOON MD [facility] Start: 09-10-2022 ambulatory VANGIE DORADO MD Facility: [facility] Start: 08-23-2022 AUDIT Jaylon Ulloa Work Phone: [facility] Work Phone: Start: 07-06-2022 AUDIT Jaylon E Nekl Work Phone: [facility] Work Phone: Start: 06-14-2022 Office outpatient vi sit 15 minutes Jaylon E Nekl Work Phone: [facility] Work Phone: Start: 06-14-2022 ambulatory JAYLON LAKHWINDER NEKL Facil [id number] Start: 03-12-2022 AUDIT Jaylon Krishna Nekl Work Phone: [facility] Work Phone: Start: 02-09-2022 AUDIT Jaylon Krishna Nekl Work Phone: [facility] Work Phone: Start: 02-08-2022 End: 02-09-2022 ambulatory GRETEL MAJANO MD [facility] Start: 01-19-2022 Chart Update Jaylon Krishna Nekl Work Phone: [facility] Work Phone: Start: 01-18-2022 Office outpatient vi sit 15 minutes Jaylon Ulloa Work Phone: [facility] Work Phone: Start: 01-18-2022 ambulatory JAYLON ULLOA Facil [id number] Start: 12-12-2021 Telephone encounter Jaylon Ulloa Work Phone: [facility] Work Phone: Start: 12-07-2021 End: 12-07-2021 Emergency department patient visit [facility]-Emergency Room Start: 11-14-2021 AUDIT Jaylon Krishna Nekl Work Phone: [facility] Work Phone: Start: 11-06-2021 AUDIT Jaylon Krishna Nekl Work Phone: [facility] Work Phone: Start: 11-03-2021 AUDIT Jaylon Krishna Nekl Work Phone: [facility] Work Phone: Start: 10-22-2021 ambulatory JAYLON DEL CASTILLOKL Facil [id number] Start: 07-20-2021 ambulatory JAYLON ULLOA Facil [id number] Start: 06-25-2021 AUDIT Jaylon Del Castillokl Work Phone: [facility] Work Phone: Start: 06-20-2021 Telephone encounter Jaylon Krishna Nekl Work Phone: [facility] Work Phone: Start: 06-13-2021 AUDIT Jaylon Krishna Nekl Work Phone: [facility] Work Phone: Start: 03-07-2021 Patient encounter procedure Jaylon Krishna Nekl Work Phone: -[facility] [address] DO Work Phone: Start: 03-01-2021 Office outpatient vi sit 15 minutes Jaylon Del Castillokl Work Phone: [facility] Work Phone: Start: 03-01-2021 Patient encounter procedure Jaylon Del Castillokl Work Phone: [facility] Work Phone: Start: 01-22-2021 AUDIT Jaylon Krishna Nekl Work Phone: [facility] Work Phone: Start: 12-09-2019 Patient encounter procedure Jaylon Del Castillokl [facility] Work Phone: Start: 07-15-2019 Patient encounter procedure Jaylon Nekl [facility] Work Phone: Start: 02-16-2019 Patient encounter procedure Jaylon Del Castillokl [facility] Work Phone: Start: 10-20-2018 Patient encounter procedure Jaylon Barbarakl [facility] Work Phone: Start: 07-20-2018 Patient encounter procedure Jaylon Ulloa [facility] Work Phone: Start: 03-23-2018 Patient encounter procedure Jaylon Ulloa [facility] Work Phone: Start: 11-20-2017 Patient encounter procedure Jaylon Ulloa [facility] Work Phone: Start: 07-25-2017 Patient encounter procedure Jaylon Ulloa [facility] Work Phone: Patient encounter procedure Jaylon Ulloa Work Phone: -[facility] 102 DO Work Phone: Procedures Date Procedure Procedure Detail Performing Clinician Start: 01-26-2024 MRI-US fusion guided transrectal biopsy of prostate Devendra SCOTTY Start: 12-30-2023 Urodynamic studies Patr jamin MINER [...] 1998 panel - Serum or Plasma Jaylon Mindy Start: 07-15-2019 Hemoglobin glycosylated a1c Jaylon Mindy Start: 07-15-2019 Lipid panel Jaylon Barbara saldana Procedure on knee Devendra SESAY Transurethral cystoscopy Becky nilson MINER Plan of Treatment Date Care Activity Detail Author Start: 01-27-2024 [facility] Start: 12-25-2023 MR prostate wo/w con MR prostate wo/w con [facility] Start: 10-16-2023 [facility] Start: 12-16-2022 FUV, Provider: Jaylon Ulloa, Status: Pen, Time: 8:45 AM FUV, Provider: Jaylon Ulloa, Status: Pen, Time: 8:45 AM [facility] Work Phone: Start: 06-14-2022 FUV, Provider: Jaylon Ulloa, Status: Pen, Time: 9:00 AM FUV, Provider: Jaylon Ulloa, Status: Pen, Time: 9:00 AM [facility] Work Phone: Start: 01-18-2022 FUV, Provider: Jaylon Ulloa, Status: Pen, Time: 10:45 AM FUV, Provider: Jaylon Ulloa, Status: Pen, Time: 10:45 AM [employer] Work Phone: Start: 07-02-2021 FUV, Provider: Jaylon Ulloa, Status: Pen, Time: 8:30 AM FUV, Provider: Jaylon Ulloa, Status: Pen, Time: 8:30 AM [employer] Work Phone: Start: 03-07-2021 MCRWELCOME, Provider: Alie Gaytan, Status: Pen, Time: 8:00 AM MCRWELCOME, Provider: Alie Gaytan, Status: Pen, Time: 8:00 AM [facility] Work Phone: Start: 03-01-2021 FUV, Provider: Jaylon Ulloa, Status: Pen, Time: 9:45 AM FUV, Provider: Jaylon Ulloa, Status: Pen, Time: 9:45 AM [facility] Work Phone: Comprehensive metabo lic 2000 panel - Serum or Plasma [facility] Patient Education Paresthesia (DC) [facility] Work Phone: Patient referral [facility] Work Phone: [facility] Immunizations Immunization Date Immunization Notes Care Provider Fa reagan 06-16-2024 influenza virus vacc ine, unspecified formulation Devendra [employer] [facility] 06-16-2024 influenza, high dose seasonal, preservative-free [facility] 04-11-2023 Flu Shot - Documenta tion Purposes Only Светлана Mast Other [facility] 04-11-2023 influenza virus vacc ine, unspecified formulation [employer] [facility] 03-21-2023 Prevnar 20 Светлана Mast Other [facility] 12-17-2022 tetanus toxoid, redu brittany diphtheria toxoid, and acellular pertussis vaccine, adsorbed Светлана Mast Other [facility] 06-02-2022 Moderna COVID-19 Biv al Booster 50 MCG/0.5ML Intramuscular Suspension Jaylon E Nekl Work Phone: [facility] 04-19-2022 zoster vaccine recombinant Jaylon E Nekl Work Phone: [facility] 04-08-2022 Fluzone High-Dose Quadrivalent 0.7 ML Intramuscular Suspension Prefilled Syringe Jaylon E Nekl Work Phone: [facility] Work Phone: 04-08-2022 influenza virus vacc ine, unspecified formulation Devendra MINER [facility] 01-11-2022 zoster vaccine recombinant Jaylon E Nekl Work Phone: [facility] 05-21-2021 Moderna COVID-19 Vac cine 100 MCG/0.5ML Intramuscular Suspension Jaylon E Nekl Work Phone: [facility] 03-01-2021 influenza virus vacc ine, unspecified formulation Devendranilson MINER [facility] 03-01-2021 influenza, high dose seasonal, preservative-free; Translations: [Fluzone High-Dose 0.5 ML Intramuscular Suspension Prefilled Syringe] Jaylon E Nekl Work Phone: [facility] Work Phone: Comment on above: Series: 08-01-2020 Moderna COVID-19 Vac cine 100 MCG/0.5ML Intramuscular Suspension Jaylon E Nekl Work Phone: [facility] 07-04-2020 Moderna COVID-19 Vac cine 100 MCG/0.5ML Intramuscular Suspension Jaylon E Nekl Work Phone: [facility] 03-09-2020 influenza virus vacc ine, unspecified formulation Devendra MINER [facility] 03-09-2020 influenza, injectabl e, quadrivalent, preservative free Jaylon E Nekl Work Phone: [address] Work Phone: 04-22-2019 influenza virus vacc ine, unspecified formulation Devendranilson MINER [facility] 04-22-2019 Influenza, injectabl e, Madin Nunica Canine Kidney, quadrivalent with preservative Jaylon E Nekl Work Phone: [facility] 102 DO Work Phone: 04-10-2018 influenza virus vacc ine, unspecified formulation Devendra MINER [facility] [place] 04-10-2018 influenza, injectabl e, quadrivalent, preservative free Jaylonakhil Ulloa Work Phone: [facility] 102 DO Work Phone: Payers Date Payer Category Payer Private Health Insurance [employer] [id number] 2023 Medicare [id number] 2022 Self-pay [id number] 2020 Medicare [id number] 1959 Private Health Insurance [id number] 1959 Unknown [id number] 1955 Unknown [id number] 2.. 840.1.811001.3.579.2.356 1955 Unknown [id number] . 840.1.869119.3.579.2.356 1955 Unknown [id number] .. 840.1.969654.3.579.2.356 1955 Unknown [id number] 2.16. 840.1.130253.3.579.2.356 1955 Unknown [id number] 2.16.8 40.1.734538.3.579.2.159 1955 Unknown [id number] 2.16.8 40.1.892504.3.579.2.598 1955 Unknown [id number] 2.16.8 40.1.347643.3.579.2.598 1955 Unknown [id number] 2.16.8 40.1.376421.3.579.2.727 1955 Unknown [id number] 2.16.8 40.1.971978.3.579.2.727 1955 Unknown [id number] 2.16.8 40.1.705625.3.579.2.727 1955 Unknown [id number] 2.16.8 40.1.658365.3.579.2.727 1955 Unknown [id number] 2.16.8 40.1.759378.3.579.2.727 1955 Unknown [id number] 2.16.8 40.1.603609.3.579.2.727 1955 Unknown [id number] 2.16.8 40.1.525036.3.579.2.727 1955 Unknown [id number] 2.16.8 40.1.860988.3.579.2.727 1955 Unknown [id number] 2.16.8 40.1.822358.3.579.2.727 1955 Unknown [id number] 2.16.8 40.1.882742.3.579.2.727 1955 Unknown [id number] 2.16.8 40.1.582748.3.579.2.727 1955 Unknown [id number] 2.16.8 40.1.677028.3.579.2.72 1955 Unknown [id number] 2.16.8 40.1.987200.3.579.2.727 1955 Unknown [id number] 2.16.8 40.1.958690.3.579.272 1955 Unknown [id number] 2.16.8 40.1.934458.3.579.2.727 1955 Unknown [id number] 2.16.8 40.1.969975.3.579.2.727 1955 Unknown [id number] 2.16.8 40.1.346146.3.579.2.727 1955 Unknown [id number] 2.16.8 40.1.032952.3.579.2.727 1955 Unknown [id number] 2.16.8 40.1.722759.3.579.2.727 1955 Unknown [id number] 2.16.8 40.1.716946.3.579.2.727 Unknown Unknown [id number] Unknown [id number] 2.16.8 40.1.671362.3.579.2.531 Unknown [id number] 2.16.8 40.1.060504.3.579.2.531 Social History Date Type Detail Facility Currently working Currently working [employer] Work Phone: Start: 12-07-2021 [facility] Start: 1955 Sex Assigned At Male F [facility] Sex Assigned At [facility] Start: 06-04-2023 End: 12-22-2023 Tobacco smoking status Never smoked tobacco (finding) [facility] Tobacco smoking status Never [facility] Start: 07-16-2024 End: 11-08-2024 Sex Male (finding) [facility] Sexual Orientation [facility] NEGATED: Highlighted row - - [employer] Work Phone: Medical Equipment Procedure Code Equipment Code Equipment Origin al Text Equipment Identifier Dates BD Pen Needle Na no U/F 32G X 4 MM uses 1 daily Quantity: 1 Refills: 3 Jaylon Ulola MD Start : 21-Jan-2019 Active [address] Start: 01-21-2019 BD Pen Needle Na no U/F 32G X 4 MM uses 1 daily Quantity: 1 Refills: 3 Jaylon Ulloa MD Start : 21-Jan-2019 Active [address] Start: 01-21-2019 Goals Date Patient Goal Desired Activity /State Functional Status Date Assessment Result Facility 07-21-2024 Functional Status N/A [facility] 02-04-2024 Functional Status N/A [facility] 11-05-2023 Functional Status N/A [facility] 10-16-2023 Functional status Patient at Baseline [facility] Work Phone: 07-01-2023 Functional Status N/A [facility] 06-04-2023 Functional Status N/A [facility] NEGATED: Highlighted row Functional performance Functional status health issues are not documented Disease [facility] Work Phone: Mental Status Date Assessment Result Facility 10-16-2023 Cognitive function Cognitive Sta tus Patient at Baseline [facility] Work Phone: NEGATED: Highlighted row Cognitive function [Interpretation] Cognitive status health issues are not documented Disease [facility] Work Phone: Clinical Notes 01-27-2023 to 03-07-2025 Note Date & Type Note Facility 03-07-2025 Evaluation note Diagnosis Onset Date Resolution Essential (primary) hypertension acute March 07, 025 8:28am Type 2 diabetes mellitus acute March 07, 2 025 8:28am [facility] Work Phone: [phone]) 357-449508-27-2025 Hospital Discharge instructions Patient Education 02/23/2025 08:23:37 Transrectal Ultrasound-Guided [...] discomfort near your rectum, especially while sitting. [place]-colored urine due to small amounts of blood in your urine. A burning feeling while urinating. Blood in your stool (feces) or bleeding from your rectum. Blood in your semen. Follow these instructions at home: Medicines Take jdan-sab-mrdaowp and prescription medicines only as told by your health care provider. If you were given a sedative during your procedure, it can affect you for several hours. Do not drive or operate machinery until your health care provider says that it is safe. If you were prescribed an antibiotic medicine, take it as told by your health care provider. Do notstop using the antibiotic even if you start [...] pain and discomfort around your rectum, especially whilesitting. You may have blood in your urine [...] provider. Document Revised: 12/10/2021 Document Reviewed: 12/10/2021 [email or web address] Patient Education 2023 IPG. 02/23/2025 08:23:36 Transrectal Ultrasound-Guided Prostate Biopsy Transrectal Ultrasound-Guided Prostate Biopsy A transrectal ultrasound-guided prostate biopsy is a procedure to remove samples of prostate tissuefor testing. The prostate is a walnut-sized gland that is located below the bladder and in front ofthe rectum. During this procedure, a small device (probe) is lubricated and put inside the rectum. The probe sends out sound waves that make a picture of the prostate and surrounding tissues (transrectal ultrasound). The images are used to help guide the process of removing the samples. The samplesare taken to a lab to be checked [...] including vitamins, herbs, eye drops, creams, and zrlk-znk-nkzeqwf medicines. Any problems you or family members [...] provider tells you to take them. Taking abto-vgv-tagfsph medicines, vitamins, herbs, and supplements. General instructions [...] until youleave the hospital or clinic. You may have [...] hospital or clinic, and follow up with yourhealth care provider for your results. This information is not intended to replace advice given to you by your health care provider. Make sure you discuss any questions you have with your health care provider. Document Revised: 12/10/2021 Document Reviewed: 12/10/2021 [email or web address] Patient Education 2023 IPG. Follow Up Care 07/21/2024 08:28:19 With:SCOTTY VO, Devendra Romero, URL Address: [address] [place] [address] When: Unknown [facility] [place] 08-27-2025 NotePatient Education Oncology Transrectal Ultrasound-Guided Prostate Biopsy, Care [...] near your rectum, especially while sitting. ??? [place]-colored urine due to small amounts of blood in your urine. ??? A burning feeling while urinating. ??? Blood in your stool (feces) or bleeding from your rectum. ??? Blood in your semen. Follow these instructions at home: Medicines ??? Take vysz-ubv-ylksgxm and prescription medicines only as told by your health care provider. ??? If you were given a sedative during your procedure, it can affect you for several hours. Do notdrive or operate machinery until your health care provider says that it is safe. ??? If you were prescribed an antibiotic medicine, take it as told by your health care provider. Donot stop using the antibiotic even if you [...] provider. Document Revised: 12/10/2021 Document Reviewed: 12/10/2021 [email or web address] Patient Education ? 2023 IPG. Transrectal Ultrasound-Guided Prostate Biopsy A transrectal ultrasound-guided prostate biopsy is a procedure to remove samples of prostate tissuefor testing. The prostate is a walnut-sized gland that is located below the bladder and in front ofthe rectum. During this procedure, a small device (probe) is lubricated and put inside the rectum. The probe sends out sound waves that make a picture of the prostate and surrounding tissues (transrectal ultrasound). The images are used to help guide the process of removing the samples. The samplesare taken to a lab to be checked [...] including vitamins, herbs, eye drops, creams, and ylvh-ejg-imhtyiz medicines. ??? Any problems you or family [...] medicines. This is especial (more content not included)...[facility]01-22-2025 Hospital Discharge instructions Patient Education 07/21/2024 08:23:52 Prostate Cancer [...] such as a bone scan, CT scan, PETscan, or MRI. Stages of prostate cancer The [...] under a microscope. This is called the Cascade score and the total score can range from 6 10, indicating how likely it is that the cancer will spread (metastasize) to other parts of the body. The higher the score, the greater thelikelihood that the cancer will spread. Cascade 6 or lower: This indicates that the cancer cells look similar to normal prostate cells (well differentiated). Cascade 7: This indicates that the cancer cells look somewhat similar to normal prostate cells (moderately differentiated). Cascade 8, 9, or 10: This indicates that [...] you need help quitting, ask your health careprovider. Eat a healthy diet. To do this: [...] prostate cancer. Meeting with a support group mayhelp you learn to manage the stress of having cancer. General instructions Take gyfv-skh-rmgxooa and prescription medicines only as told by your health care provider. If you have to go to the hospital, notify your cancer specialist (oncologist). Keep all follow-up visits. This is important. Where to find more information [place] [employer]: www.cancer.org [place] Society of Clinical Oncology: www.cancer.net National Cancer Sunset: www.cancer.gov Contact a health care provider if: [...] prostate cancer. Meeting with a support group mayhelp you learn to manage the stress of having cancer. This information is not intended to replace advice given to you by your health care provider. Make sure you discuss any questions you have with your health care provider. Document Revised: 09/12/2021 Document Reviewed: 09/12/2021 [email or web address] Patient Education 2023 IPG. Follow Up Care 02/04/2024 16:10:52 With:SCOTTY VO, Devendra Romero, URL Address: [facility] [address] , [place] [address]- When: Unknown [facility] [place] 01-22-2025 NotePatient Education Oncology Prostate Cancer The prostate is [...] such as a bone scan, CT scan, PETscan, or MRI. Stages of prostate cancer The stages of prostate cancer are as follows: ??? Stage 1 (I). At this stage, the cancer is found in the prostate only. The cancer is not visibleon imaging tests, and it is usually found [...] under a microscope. This is called the Cascade score and the total score can range from 6?10, indicating how likely it is that the cancer will spread (metastasize) to other parts of the body. The higher the score, the greater thelikelihood that the cancer will spread. ??? Andria 6 or lower: This indicates that the cancer cells look similar to normal prostate cells (well differentiated). ??? Andria 7: This indicates that the cancer cells look somewhat similar to normal prostate cells (moderately differentiated). ??? Cascade 8, 9, or 10: This indicates that [...] needles, seeds, wires, o (more content not included)...[facility]08-07-2024 Hospital Discharge instructions Patient Education 02/04/2024 16:00:38 Prostate Cancer [...] such as a bone scan, CT scan, PETscan, or MRI. Stages of prostate cancer The [...] under a microscope. This is called the Cascade score and the total score can range from 6 10, indicating how likely it is that the cancer will spread (metastasize) to other parts of the body. The higher the score, the greater thelikelihood that the cancer will spread. Cascade 6 or lower: This indicates that the cancer cells look similar to normal prostate cells (well differentiated). Cascade 7: This indicates that the cancer cells [...] you need help quitting, ask your health careprovider. Eat a healthy diet. To do this: [...] prostate cancer. Meeting with a support group mayhelp you learn to manage the stress of having cancer. General instructions Take qryv-cud-oleglmy and prescription medicines only as told by your health care provider. If you have to go to the hospital, notify your cancer specialist (oncologist). Keep all follow-up visits. This is important. Where to find more information [place] [employer]: www.cancer.org [place] Society of Clinical Oncology: www.cancer.net National Cancer Sunset: www.cancer.gov Contact a health care provider if: [...] prostate cancer. Meeting with a support group mayhelp you learn to manage the stress of having cancer. This information is not intended to replace advice given to you by your health care provider. Make sure you discuss any questions you have with your health care provider. Document Revised: 09/12/2021 Document Reviewed: 09/12/2021 [email or web address] Patient Education 2022 IPG. Follow Up Care 01/13/2024 10:34:12 With:SCOTTY VO, Devendra Romero, URL Address: [facility] [address] , [place] [address]- When: Unknown [facility] [place] 08-07-2024 NotePatient Education Oncology Prostate Cancer The prostate is [...] from the prostate and checked under a microscope(prostate biopsy). ? An imaging test called transrectal ultrasonography. Once the condition is diagnosed, tests will be done to determine how far the cancer has spread. This is called staging the cancer. Staging may involve imaging tests, such as a bone scan, CT scan, PETscan, or MRI. Stages of prostate cancer The [...] under a microscope. This is called the Cascade score and the total score can range from 6?10, indicating how likely it is that the cancer will spread (metastasize) to other parts of the body. The higher the score, the greater thelikelihood that the cancer will spread. ? Andria 6 or lower: This indicates that the cancer cells look similar to normal prostate cells (well differentiated). ? Andria 7: This indicates that the cancer [...] seeds, wires, or tubes that are implanted intothe prostate gla (more content not included)...[facility]05-08-2024 Hospital Discharge instructions Patient Education 11/05/2023 16:09:25 Bladder Stone [...] Follow these instructions at home: Medicines Take tvpb-tor-biakvox and prescription medicines only as told by your health care provider. Ask your health care provider if the medicine prescribed to you: ?Requires you to avoid driving or using heavy machinery. ?Can cause constipation. You may need to take these actions to prevent or treat constipation: ?Take dysx-vqe-zsqmjgp or prescription medicines. ?Eat foods that are [...] to find more information [facility] ([facility]): www.urologyhealth.org Contact a health care provider if [...] provider. Document Revised: 01/06/2020 Document Reviewed: 01/06/2020 [email or web address] Patient Education 2022 IPG. Follow Up Care 09/10/2023 14:40:10 With:SCOTTY VO, Devendra Romero, URL Address: [facility] [address] , [place] [address]- When: Unknown [facility] 05-08-2024 Evaluation + Plan note Diagnostic Tests Pending * PSA Total 11/05/23 * PSA Total 11/05/23 [facility] 01-15-2024 Evaluation note* Encounter Date Diagnosis Assessment Notes Treatment Notes Treatment Clinical Notes Jun, Type 2 diabetes mellitus without [...] (ICD-10 - I10) BP controlled, continue Rx [employer] Other 01-02-2024 Hospital Discharge instructions Patient Education [...] Follow these instructions at home: Medicines Take kirg-uar-lcpmpmd and prescription medicines only as told by your health care provider. Ask your health care provider if the medicine prescribed to you: ?Requires you to avoid driving or using heavy machinery. ?Can cause constipation. You may need to take these actions to prevent or treat constipation: ?Take zzwj-pja-kqicjwh or prescription medicines. ?Eat foods that are [...] provider. Document Revised: 01/06/2020 Document Reviewed: 01/06/2020 [email or web address] Patient Education 2022 IPG. 07/01/2023 14:44:58 Transurethral Resection of the Prostate [...] including vitamins, herbs, eye drops, creams, and ucks-kqk-osvpwdj medicines. Any problems you or family members [...] provider tells you to take them. Taking lrgk-kjl-dddcxyc medicines, vitamins, herbs, and supplements. Surgery safety [...] provider. Document Revised: 03/12/2022 Document Reviewed: 03/12/2022 [email or web address] Patient Education 2022 IPG. 07/01/2023 14:20:36 Benign Prostatic Hyperplasia Benign Prostatic [...] urethra. Follow these instructions at home: Take nris-zyt-cprmung and prescription medicines only as told by [...] provider. Document Revised: 01/02/2022 Document Reviewed: 01/02/2022 [email or web address] Patient Education 2022 IPG. Follow Up Care 06/04/2023 14:21:38 With:SCOTTY VO, Devendra Romero, URL Address: [facility] [address] , [place] [address]- When: Unknown Comments:Schedule Cysto/Litholapaxy/TURP [facility] 12-06-2023 Hospital Discharge instructions Patient [...] Follow these instructions at home: Medicines Take jnvi-xrv-uzofblp and prescription medicines only as told by your health care provider. Ask your health care provider if the medicine prescribed to you: ?Requires you to avoid driving or using heavy machinery. ?Can cause constipation. You may need to take these actions to prevent or treat constipation: ?Take pfmn-cnb-vfbuvof or prescription medicines. ?Eat foods that are [...] to find more information [facility] ([facility]): www.urologyhealth.org Contact a health care provider if [...] provider. Document Revised: 01/06/2020 Document Reviewed: 01/06/2020 [email or web address] Patient Education 2022 IPG. 06/04/2023 14:11:49 Cystoscopy Cystoscopy Cystoscopy is a [...] including vitamins, herbs, eye drops, creams, and ktnw-fvr-jaaiytr medicines. Any problems you or family members [...] provider tells you to take them. Taking clza-vsh-cinlxqd medicines, vitamins, herbs, and supplements. Tests You [...] Follow these instructions at home: Medicines Take ties-mcm-uwtpdpr and prescription medicines only as told by [...] provider. Document Revised: 02/27/2022 Document Reviewed: 01/26/2021 [email or web address] Patient Education 2022 IPG. Follow Up Care 03/04/2023 10:15:34 With:SCOTTY VO, Devendra Romero, URL Address: [facility] [address] , [place] [address]- When: Unknown [facility] 12-04-2023 Evaluation note* Encounter Date [...] I10) Controlled, continue lisinopril 10 mg daily [employer] Other 09-25-2023 Evaluation note* Encounter Date Diagnosis Assessment Notes Treatment Notes Treatment Clinical Notes Feb, Type 2 diabetes mellitus without complication, without long-term current use of insulin (ICD-10 - E11.9) Feb, Essential (primary) hypertension (ICD-10 - I10) [employer] Other 08-31-2023 Evaluation note* Encounter Date Diagnosis Assessment Notes Treatment Notes Treatment Clinical Notes Jan, Type 2 diabetes mellitus without complication, without long-term current use of insulin (ICD-10 - E11.9) Glycemic control is suboptimal. [employer] mohamud 3 sensors are ordered. We reviewed [...] Refer to urology, he is currently asymptomatic [employer] Other 07-31-2023 Evaluation note* Encounter Date Diagnosis [...] urologist for further evaluation to include cystoscopy [place] [employer] Other Evaluation + Plan note Future Appointments Appointment Date:07/01/2023 01:45:00 PM Scheduled Provider:[facility] Appoint[facility] Type:URO Procedure 15 min [facility] evaluation + Plan note Future Appointments Appointment Date:10/20/2023 09:00:00 AM Scheduled Provider: Location:[facility] [place] Appointment Type:URO Nurse Visit Appointment Date:11/05/2023 03:00:00 PM Scheduled Provider:Devendra MINER MD [facility] Appointment Type:URO Office Visit [facility] evaluation + Plan note Future Appointments Appointment Date:11/05/2023 03:00:00 PM Scheduled Provider:Devendra MINER MD Location:[facility] Appointment Type:URO Office Visit [facility] evaluation + Plan note Future Appointments Appointment Date:07/14/2024 08:00:00 AM Scheduled Provider: Location:[facility] [place] Appointment Type:URO Nurse Visit Appointment Date:07/21/2024 08:00:00 AM Scheduled Provider:Devendra MINER MD Location:[facility] [place] Appointment Type:URO Office Visit Diagnostic Tests Pending * PSA Total 02/04/24 [facility] evaluation + Plan note Future Appointments Appointment Date:07/21/2024 08:00:00 AM Scheduled Provider:Devendra MINER MD Location:[facility] [place] Appointment Type:URO Office Visit [facility] Evaluation + Plan note Future Appointments Appointment Date:02/23/2025 08:00:00 AM Scheduled Provider:Devendra MINER MD Location:[facility] [place] Appointment Type:URO Office Visit Diagnostic Tests Pending * PSA Total 07/21/24 [facility] [place] Evaluation + Plan note Future Appointments Appointment Date:02/23/2025 08:00:00 AM Scheduled Provider:Devendra MINER MD Location:[facility] [place] Appointment Type:URO Office Visit [facility] [place] evaluation + Plan note Future Appointments Appointment Date:03/30/2025 08:45:00 AM Scheduled Provider:Devendra MINER MD Location:[facility] [place] Appointment Type:URO Office Visit [facility] [place] evaluation noteNo assessment information available [facility] Work Phone: Evaluation noteNo InformationNortHorsham Clinic [employer] Other Evaluation note* Diagnosis Onset Date Resolution Status Bladder calculus acute Essential (primary) hypertension acute [id number] acute [facility] Work Phone: Evaluation note* Diagnosis Onset Date Resolution Status [id number] acute [facility] Work Phone: Evaluation note* Diagnosis Onset Date Resolution Status Bladder calculus acute Essential (primary) hypertension acute Right arm pain acute Type 2 diabetes mellitus acu te [facility] Work Phone: Evaluation note* Diagnosis Onset Date Resolution Status Type 2 diabetes mellitus acu te Encounter for annual wellnes s exam in Medicare patient noneactive [facility] Work Phone: Hisltqf general Narrative - Reported* Type Description Date Medical History Hypertension Medical History type II diabetes Surgical History R knee surgery [facility] [employer] Other History of Present illness Narrative* spends time by [place] * wt. similar * hgm 90--150 range..tests 1--2 a day * no sob/ no chest pains * agent 10--14 basa u basa/ plus orals * no hypos [employer] [facility] Work Phone: History of Present illness Narrative* spends time by [place] home * wt. similar * hgm 90--150 range. per pt. .tests 1--2 a day * no sob/ no chest pains * agent 10--14 basag u / plus orals * no hypos * had eye care 2020 * overall feels fine * he again declines going on lipid lowering rx [employer] [facility] Work Phone: History of Present illness Narrative* [...] aids but has not got them yet. [facility] 102 DO Work Phone: History [...] aids but has not got them yet. [facility] 102 DO Work Phone: History [...] aids but has not got them yet. [employer] Work Phone: History of Present illness Narrative* cards appt. 2021 dr majano ([facility]) * r. arm issue resolved * hgm fbs 140--150s..seems a little higher to him * takes meds fine * no sob no cjhest pains * no hypos [employer] Work Phone: History of Present illness Narrative* [...] sjhot * eye dr up to date [employer] Work Phone: Hospital course Narrative No data available for this section [facility] Hospital Discharge instructions No data available for this section [facility] Hospital Discharge instructions Additional Instructions DISCHARGE INSTRUCTIONS [...] will call for next step [ ] [facility] Work Phone: Progress note No data available for this section [facility] Reason for referral (narrative)No reason for referral information availableOhio [facility] Work Phone: Chief Complaint here for [...] for Visit Bladder calculus Essential (primary) hypertension [id number] Chief Complaint Bladder Stone, BPH w / Obstruction 3 month follow up Reason for Visit [id number] Chief Complaint Bladder Stone, BPH w / [...] Date 4 months March 07, 2025 8:28am Chief Complaint Admit Date 4 months March 07, 2025 8:28am E11.9, Z13.6 March 09, 2025 8:59am Reason for Visit Admit Date Essential (primary) hypertension Septemb 2024 8:28am Type 2 diabetes mellitus March 07, 2025 8:28am Advance Directives No Advanced Directives Records Found Advance Directive Response Recorded Date/ Time Advance Directives No December 07 10:04am Advance Directive Response Recorded Date/ Time Advance Directives No December 07 9:04am Summary Purpose Family History No Family History [...] Referred Organization [facility] Referred Address [address],[place],[address] Referred Provider Specialty Urology Referral Priority Routine [...] Team Status: Inactive Member Role Status Dates Всетлана Mast , DO Primary Care Provide r, Attending Provider Active Start: November 08, 2024 End: November 08, 2024 Team Status: Inactive Member Role Status Dates Светлана Mast , DO Primary Care Provider Active Star t: March 07, 2025 End: March 07, 2025 Светлана Mast , DO Attending Provider Active Start: March 07, 2025 End: March 07, 2025 Team Status: Inactive Member Role Status Dates Светлана Mast , DO Primary Care Provider Active Star t: March 09, 2025 End: March 09, 2025 Светлана Mast , DO Attending Provider Active Start: March 09, 2025 End: March 09, 2025 Goals (unrecognized section and content) Goals [...] section and content) DATE CREATED AUTHOR 06/20/2022 [facility] DATE CREATED AUTHOR AUTHOR'S ORGANIZ ATION 06/21/2022 [employer] DATE CREATED AUTHOR AUTHOR'S ORGANIZ ATION 09/11/2022 [facility] DATE CREATED AUTHOR AUTHOR'S ORGANIZ ATION 10/11/2022 [facility] DATE CREATED AUTHOR AUTHOR'S ORGANIZ ATION 07/22/2024 [facility] DATE CREATED AUTHOR AUTHOR'S ORGANIZ ATION 02/25/2025 Perico Feliz [facility] DATE CREATED AUTHOR AUTHOR'S ORGANSARAH ATION 03/11/2025 [facility] REASON FOR VISIT (unrecogniz ed [...] BE BASED ON THE PRIMARY CLINICAL RECORDS. [employer] provides no warranty or guarantee of the accuracy or completeness of information in this document.
--- NOTE | 2025-03-17 07:13 | US_ITS ---
[address] [address] Patient Name: GRETEL BAINS MRN: [id number] date: 1955 Sex: M Assigned Patient Location: [facility] Current Patient Location: Accession/Order Number: [id number] Exam Date: 03/17/2025 08:00 Report Date: 03/17/2025 13:56 At the request of: TYLER FAJARDO MD Procedure: US prostate Ultrasound prostate HISTORY: Prostate biopsy. Elevated PSA. Area of mass within the prostate gland measuring up to 3.7 cm present. Multiple passes was performed by urologist. US/US prostate IMPRESSION: Ultrasound assessment for prostate lesion biopsy. Impression dictated by: Bob Jay M.D. 03/17/2025 1:56 PM Dictation Location: [place] [address] Electronically authenticated by: [id number] Y Date: 03/17/2025 13:56
[2025-03-17] MEDS: CEFAZOLIN SODIUM 1 GM/50 ML D5W PREMIX IV (08:08)
[2025-03-17] MEDS: GENTAMICIN SULFATE 120 MG in 0.9 % SODIUM CHLORIDE 100 ML 206 MG IV (08:16)
[2025-03-17] MEDS: LIDOCAINE 2% JELLY 20 ML UR (08:19)
--- NOTE | 2025-03-17 08:43 | P.URON_ITS ---
Urology Surgery Operative Note Operative Note Procedure Date: 03/17/25 Time Out Performed: yes Pre-op Diagnosis: Prostate cancer; active surveillance Post-op Diagnosis: same as pre-op Procedures performed: 1. Transrectal ultrasound of the prostate. 2. Prostate needle biopsies Anesthesia: MAC and local Primary Surgeon: Devendra Miner Complications: None Estimated blood loss (mL): 15 Findings: Large hypoechoic area right anterior mid peripheral zone as seen on MRI Specimens: 1. Mapped out biopsies from the base towards the apex 2 from each of 4 levels on the left side and on the right side. 2. 7 dedicated biopsies from the area of interest sent separately. Drains: None Indications for Procedures: This gentleman has an elevated PSA for which he underwent an MRI in November 2023. This showed a PI-RADS 5 lesion involving the anterior aspect of the right peripheral zone at the mid gland for which he underwent a fusion biopsy and mapped out biopsies around that time. The pathology revealed 1 core of Lena 7(4+3) with only 10% of the core containing cancer. He has been in active surveillance for the last year. His PSAs have essentially been stable. The most recent 1 was 3.5. He now presents for confirmatory biopsy 1 year post diagnosis. He has signed an informed consent after all risks were explained. Some of these risks include bleeding, infection, urosepsis and anesthesia to name a few. Detailed description of Procedure: The patient was brought into the Endo suite and kept on his [facility] bed in the left lateral decubitus position. Timeout was done by all parties in the room. SCDs were placed on his lower extremities and turned on and functioning during the entire case. MAC anesthesia was then administered. I started by using Betadine soaked sponges and swabbing his rectum with them several times. I then passed 2% lidocaine gel per rectum. The ultrasound probe was then passed per rectum. The volume was calculated to be 30 g. The area of interest was visible in the right mid anterior peripheral zone. The largest measurement of this lesion was 3.7 cm. We then began taking biopsies with the needle gun starting at the left base and going towards the apex. We divided it up into 4 levels and from each level took 2 biopsies. We then did a similar maneuver on the right side. After the 16 biopsies were completed we then took 7 dedicated biopsies from the area of interest and these were sent separately labeled area of interest. The probe was then removed. He was then rotated to the supine position. He was then transferred to PACU in stable condition.
--- NOTE | 2025-03-17 11:36 | PC.NURSE ---
UPDATED ANESTHESIA BASSEM BL[employer]STETRIC ANAESTHETIST ABOUT ELEVATED BLOOD PRESSURE. ADVISED PATIENT TO TAKE BLOOD PRESSURE MEDS WHEN HE GETS HOME .
--- NOTE | 2025-03-17 11:39 | PC.NURSE ---
PATIENT STATES HIS PHYSICIAN IS ADJUSTING LISINOPRIL AND HE DID NOT TAKE HIS DOSE ADVISED IN PREADMISSION TESTING. PATIENT WAS TAKING 10 MG AND HIS PRIMARY PCP DROPPED TO 2.5 MILIGRAM.
== END 2025-03-17 11:28 | disposition home or self-care (01) ==
LOC: SURGOUT 06:38
PROVIDERS: PCP Family Medicine; Visit Provider Urology
PROC: (CPT 55700; principal; 2025-03-17 08:00)
DX: C61 Malignant neoplasm of prostate (principal); G47.33 Obstructive sleep apnea (adult) (pediatric); I10 Essential (primary) hypertension; N40.0 Benign prostatic hyperplasia without lower urinary tract symptoms; E11.9 Type 2 diabetes mellitus without complications; Z79.84 Long term (current) use of oral hypoglycemic drugs
CPT/HCPCS: 55700; 36415; 76872; 82948; J0690; J1580; J2704